=== PATIENT | male | born 1935 | race Caucasian/White ===

== ENCOUNTER 2016-12-19 04:48 | Emergency (ER) | payer OTHER ==
[~2016-12-19] VITALS: Ht 172.7 cm; Wt 98.0 kg
[~2016-12-19 04:48] MED LIST: B-COTAB18 PO; B-COTAB97 PO; CHOL4POW6 PO; CYAN100020 PO; DOCU100C31 PO; ELQ25 PO; FLNIN/ NAE; GLIM2TAB PO; METO25TA56 PO; NORT25CA PO; OMEG10007 PO; PRLSR20 PO; SIMV10TA5 PO
[2016-12-19 04:51] VITALS: TEMP 36.4; Ht 172.7 cm; Wt 98.0 kg
--- NOTE | 2016-12-19 05:11 | EMERGENCY ROOM VISIT NOTE ---
History Report prepared by Pato: Yolanda Waters Under the Supervision of: Dr. Syl Fuller D.O. First contact with patient: 04:55 Chief Complaint: OTHER COMPLAINT Stated Complaint: BLOOD,SLIME WHEN URINATING - NOT FEELING RIGHT History of Present Illness The patient is an 81 year old male who presents to the Emergency Room with complaints of bloody stool starting one day [employer]. The patient states that he has had an abscess in his intestines before causing blood in his stool which he had a surgery to remove the abscess. The patient denies any rectal pain or abdominal pain. He denies any urinary symptoms, fevers, chills, and vomiting. The patient states that he has some decreased appetite as well as just feeling overall not right. The patient states that he is a dialysis patient and is supposed to have dialysis later today. Patient states it has been several years since his last colonoscopy. Source of History: patient Onset: 1 day [employer] Position: other (stool ) Quality: other (bloody) Associated Symptoms: No abdominal pain, No chills, No fevers, No nausea, No urinary symptoms, No vomiting Note: Associated symptoms: Loss of appetite. Patient denies rectal pain. Review of Systems See HPI for pertinent positives & negatives. A total of 10 systems reviewed and were otherwise negative. 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 (11) Pulmonary embolus (12) Type 2 diabetes mellitus Surgical Problems: (1) Carpral tunnel surgery (2) H/O carotid endarterectomy (3) H/O removal of testicle (4) H/O superior vena cava filter placement (5) History of hydrocelectomy (6) History of total hip replacement (7) S/P aortic valve replacement (8) S/P cardiac cath (9) s/p perirectal abscess drainage with fistulectomy Family History Diabetes mellitus FH: heart disease FH: lung disease Hypertension Social History Smoking Status: Never Smoker Alcohol Use: none Marital Status: Housing Status: lives with family Current/Historical Medications Scheduled B-Complex Vitamins (Vitamin B Complex), 1 TAB PO HS B-Complex W/ C & Folic Acid ([place] Caps), 1 CAP PO DAILY Cholecalciferol (Vitamin D 1000 Unit), 1,000 INTER.UNIT PO DAILY Cholestyramine Light (Questran Powder Light), 4 GM PO DAILY Cyanocobalamin (Vitamin B12), 2 TAB PO DAILYBB Glimepiride (Amaryl), 1 MG PO DAILY Metoprolol Tartrate (Lopressor) (Lopressor), 25 MG PO TID [place]-3 Fatty Acids ([place] 3), 1,000 MG PO DAILY Omeprazole (Prilosec), 20 MG PO NOON Simvastatin (Zocor), 10 MG PO HS Scheduled PRN Docusate Sodium (Docusate Sodium), 1-2 CAP PO BID PRN for Constipation Fluticasone Propionate (Fluticasone Propionate), 1 SPRAY SANJANA DAILY PRN for Nasal Congestion Miscellaneous Medications Warfarin Sodium (Warfarin Sodium) Allergies Coded Allergies: Aspirin (Verified Allergy, Unknown, ., 07/04/16) Salicylates (Verified Allergy, Unknown, UNKNOWN, 07/04/16) FROM H&P 2011 Physical Exam Vital Signs Date Time Temp Pulse Resp B/P Pulse Ox O2 Delivery O2 Flow Rate FiO2 12/19/16 06:10 75 12/19/16 06:04 79 21 117/65 96 Room Air 12/19/16 05:06 80 12/19/16 04:51 36.4 81 20 129/74 96 Room Air Physical Exam HEENT: Head - normocephalic and atraumatic Pupils are equal, round, and reactive to light. Extraocular eye muscles are intact, and sclera are anicteric. Nose - moist nasal mucosa without discharge. Mouth - moist buccal mucosa. Oropharynx is nonerythematous and there is no tonsillar exudate or edema noted. Neck: Supple; no JVD, nuchal rigidity, cervical lymphadenopathy. Heart: Regular rate and rhythm. There is a normal S1 and S2 with no murmurs, clicks, or gallops appreciated. Lungs: Clear to auscultation bilaterally with no wheezes, rales, or rhonchi. Abdomen: Soft, completely nontender, nondistended, with good bowel sounds. There are no palpable pulsatile masses or hepatosplenomegaly. There is no guarding, rigidity, or rebound noted. Extremities: No evidence of cyanosis, or clubbing. 2+ pedal edema bilaterally. There are easily palpable peripheral pulses. Skin: warm and dry with good turgor and no rashes. Pale. Open sore posterior to the rectum which was bleeding. 3 superficial abrasions on the left buttock. Rectal: Very light brown stool that was heme negative. Medical Decision & Procedures Laboratory Results 12/19/16 05:16 Red Blood Count 2.90, Mean Corpuscular Volume 112.1, Mean Corpuscular Hemoglobin 37.2, Mean Corpuscular Hemoglobin Concent 33.2, Mean Platelet Volume 11.6, Neutrophils (%) (Auto) 70.0, Lymphocytes (%) (Auto) 17.7, Monocytes (%) ( Auto) 9.4, Eosinophils (%) (Auto) 2.0, Basophils (%) (Auto) 0.3, Neutrophils # ( Auto) 4.63, Lymphocytes # (Auto) 1.17, Monocytes # (Auto) 0.62, Eosinophils # ( Auto) 0.13, Basophils # (Auto) 0.02 12/19/16 05:16 Test 12/19/16 05:16 White Blood Count 6.61 K/uL (4.8-10.8) Red Blood Count 2.90 M/uL (4.7-6.1) Hemoglobin 10.8 g/dL (14.0-18.0) Hematocrit 32.5 % (42-52) Mean Corpuscular Volume 112.1 fL (80-100) Mean Corpuscular Hemoglobin 37.2 pg (25-34) Mean Corpuscular Hemoglobin Concent 33.2 g/dl (32-36) Platelet Count 109 K/uL (130-400) Mean Platelet Volume 11.6 fL (7.4-10.4) Neutrophils (%) (Auto) 70.0 % Lymphocytes (%) (Auto) 17.7 % Monocytes (%) (Auto) 9.4 % Eosinophils (%) (Auto) 2.0 % Basophils (%) (Auto) 0.3 % Neutrophils # (Auto) 4.63 K/uL (1.4-6.5) Lymphocytes # (Auto) 1.17 K/uL (1.2-3.4) Monocytes # (Auto) 0.62 K/uL (0.11-0.59) Eosinophils # (Auto) 0.13 K/uL (0-0.5) Basophils # (Auto) 0.02 K/uL (0-0.2) RDW Standard Deviation 61.0 fL (36.4-46.3) RDW Coefficient of Variation 15.1 % (11.5-14.5) Immature Granulocyte % (Auto) 0.6 % Immature Granulocyte # (Auto) 0.04 K/uL (0.00-0.02) Macrocytosis PRESENT Prothrombin Time 21.4 SECONDS (9.0-12.0) Prothromb Time International Ratio 1.9 (0.9-1.1) Activated Partial Thromboplast Time 37.4 SECONDS (21.0-31.0) Partial Thromboplastin Ratio 1.4 Anion Gap 10.0 mmol/L (3-11) Est Creatinine Clear Calc Drug Dose 14.0 ml/min Estimated GFR () 12.5 Estimated GFR (Non- 10.8 BUN/Creatinine Ratio 11.3 (10-20) Calcium Level 8.7 mg/dl (8.5-10.1) Total Bilirubin 0.6 mg/dl (0.2-1) Direct Bilirubin 0.2 mg/dl (0-0.2) Aspartate Amino Transf (AST/SGOT) 21 U/L (15-37) Alanine Aminotransferase (ALT/SGPT) 21 U/L (12-78) Alkaline Phosphatase 99 U/L (45-117) Total Creatine Kinase 119 U/L (39-308) Creatine Kinase MB 1.0 ng/ml (0.5-3.6) Creatine Kinase MB Ratio 0.8 (0-3.0) Troponin I 0.019 ng/ml (0-0.045) Total Protein 8.4 gm/dl (6.4-8.2) Albumin 3.6 gm/dl (3.4-5.0) Laboratory results per my review. ECG Indication: other (Blood in Stool) Rate (beats per minute): 79 Rhythm: normal sinus Findings: 1st degree AV block, no acute ischemic change, no ectopy ED Course 0455: Past medical records reviewed. The patient was evaluated in room B10. A complete history and physical exam was performed. A rectal exam was performed as described above. Laboratory studies were drawn as above. 0621: Upon reevaluation, the patient was hemodynamically stable. I discussed findings and results with him. He verbalized agreement of the treatment plan. The patient was discharged home. Medical Decision The patient is a 81 year old male who presents to the ED with bloody stool. Differential diagnosis includes but is not limited to lower GI bleed, anemia, and fatigue. Labs: Normal White Count Hemoglobin 10.8 Platelet count 109 BUN 54 Creatinine 4.7 Glucose 166 LFTs normal cardiac enzymes negative INR 1.9 Physical exam, the patient does not appear to have hematochezia. The blood noted on the toilet tissue was most likely secondary to the open sore near his rectum. The patient's explains that he does scratch himself at times. While the patient was here in the emergency department, he did move his bowels and the stool was light brown in color and had no obvious blood. Patient's hemoglobin was slightly decreased but he would not require a transfusion. I've asked the patient to follow-up with his PCP if the slime he stool persists or he has persistent decreased appetite. Impression Primary Impression: Buttock abrasion Additional Impression: Lack of appetite Scribe Attestation The scribe's documentation has been prepared under my direction and personally reviewed by me in its entirety. I confirm that the note above accurately reflects all work, treatment, procedures, and medical decision making performed by me. Departure Information Dispostion Home / Self-Care Referrals Zach Gooden M.D. (PCP) Forms HOME CARE DOCUMENTATION FORM, IMPORTANT VISIT INFORMATION, WORK / SCHOOL INSTRUCTIONS Patient Instructions My [facility] Additional Instructions Avoid scratching at your buttocks. You have a wound near your rectum. Keep that area clean and dry. If you have further episodes of stooling yourself, follow up with your PCP. Call dialysis this AM Problem Qualifiers
[2016-12-19 05:32] LABS: BASO % 0.3 %; BASO ABS # 0.02 K/uL (0-0.2); HEMATOCRIT 32.5 % (42-52); IG% 0.6 %; LYMPH % 17.7 %; LYMPH ABS # 1.17 K/uL (1.2-3.4); MEAN CELL VOLUME 112.1 fL (80-100); MEAN CORPUSCULAR HEMOGLOBIN 37.2 pg (25-34); MEAN CORPUSCULAR HGB CONC 33.2 g/dl (32-36); MEAN PLATELET VOLUME 11.6 fL (7.4-10.4); MONO % 9.4 %; PLATELET COUNT 109 K/uL (130-400); WHITE BLOOD COUNT 6.61 K/uL (4.8-10.8)
[2016-12-19 05:43] LABS: INR 1.9 (0.9-1.1); PARTIAL THROMBOPLASTIN RATIO 1.4; PROTHROMBIN TIME (PATIENT) 21.4 SECONDS (9.0-12.0)
[2016-12-19 05:49] LABS: COMPLETE YES
[2016-12-19 06:02] LABS: BUN/CREATININE RATIO 11.3 (10-20); CALCIUM 8.7 mg/dl (8.5-10.1); CKMB/CK RATIO 0.8 (0-3.0); CREATININE 4.7 mg/dl (0.60-1.40); POTASSIUM 3.9 mmol/L (3.5-5.1)
[2016-12-19] MEDS ORDERED: GLIM1TAB PO (06:29)
[2016-12-19 06:31] VITALS: BP 117/65; PULSE 75; O2SAT 96
[2016-12-19] MEDS ORDERED: DOCU100C31 PO (06:31)
[2016-12-19] MEDS ORDERED: WARF-246 (06:33)
[2016-12-19] MEDS ORDERED: OMEG100046 PO (06:35)
[2016-12-19] MEDS ORDERED: CYAN100020 PO (06:36)
[2016-12-19] MEDS ORDERED: CHOL100027 PO (06:37)
[2016-12-19] MEDS ORDERED: B-COCAP21 PO (06:37)
[2016-12-19] MEDS ORDERED: CHOL4POW2 PO (06:37)
[2016-12-19] MEDS ORDERED: WARF5TAB90 PO ×2 (06:39)
== END 2016-12-19 06:35 | disposition home or self-care (01) ==
LOC: C.EDB 04:51
DX: S30.810A Abrasion of lower back and pelvis, initial encounter (principal); R63.0 Anorexia; X58.XXXA Exposure to other specified factors, initial encounter; D64.9 Anemia, unspecified; I08.0 Rheumatic disorders of both mitral and aortic valves; I82.409 Acute embolism and thrombosis of unspecified deep veins of unspecified lower extremity; E78.5 Hyperlipidemia, unspecified; N18.6 End stage renal disease; Z99.2 Dependence on renal dialysis; I10 Essential (primary) hypertension; E11.9 Type 2 diabetes mellitus without complications; Z83.3 Family history of diabetes mellitus; Z82.49 Family history of ischemic heart disease and other diseases of the circulatory system

== ENCOUNTER 2017-01-30 00:46 | Emergency (ER) | payer OTHER ==
[~2017-01-30] VITALS: Ht 170.2 cm; Wt 99.0 kg
[~2017-01-30 00:46] MED LIST changes: +B-COCAP21 PO; -B-COTAB97 PO; +CHOL100027 PO; +CHOL4POW2 PO; -CHOL4POW6 PO; -ELQ25 PO; +GLIM1TAB PO; -GLIM2TAB PO; -NORT25CA PO; +OMEG100046 PO; -OMEG10007 PO; +WARF5TAB90 PO
[2017-01-30 00:51] VITALS: TEMP 36.6; Ht 170.2 cm; Wt 99.0 kg
[2017-01-30] MEDS ORDERED: ONDANSETRON INJ 2 MG/ML 2 ML VIAL IV STA (01:03)
[2017-01-30] MEDS ORDERED: HYDROmorphone INJ 0.5 MG/0.5 ML SYR IV STA (01:03)
--- NOTE | 2017-01-30 01:05 | EMERGENCY ROOM VISIT NOTE ---
History Report prepared by Pato: Yovanny Tovar Under the Supervision of: Dr. Kian Jordan M.D. First contact with patient: 00:54 Chief Complaint: GROIN PAIN Stated Complaint: GROIN/HIP PAIN History of Present Illness The patient is an 81 year old male who presents to the Emergency Room with complaints of worsening left groin pain that began 12 hours prior to arrival. He has vomited secondary to his pain, and has had multiple bowel movements today. The patient states that he has a history of blood clots in the past and notes that this episode feels similar. He is currently on Coumadin, and has not had his levels checked in several weeks. He denies any history of hernia. Source of History: patient, family Onset: 12 hours [employer] Position: other (Groin (Left)) Timing: worsening Associated Symptoms: + vomiting Review of Systems See HPI for pertinent positives & negatives. A total of 10 systems reviewed and were otherwise negative. 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 (11) Pulmonary embolus (12) Type 2 diabetes mellitus Surgical Problems: (1) Carpral tunnel surgery (2) H/O carotid endarterectomy (3) H/O removal of testicle (4) H/O superior vena cava filter placement (5) History of hydrocelectomy (6) History of total hip replacement (7) S/P aortic valve replacement (8) S/P cardiac cath (9) s/p perirectal abscess drainage with fistulectomy Family History Diabetes mellitus FH: heart disease FH: lung disease Hypertension Social History Smoking Status: Never Smoker Alcohol Use: none Marital Status: Housing Status: lives with family Current/Historical Medications Scheduled B-Complex Vitamins (Vitamin B Complex), 1 TAB PO HS B-Complex W/ C & Folic Acid (Handy Caps), 1 CAP PO DAILY Cephalexin Monohydrate (Keflex), 500 MG PO TID Cholecalciferol (Vitamin D 1000 Unit), 1,000 INTER.UNIT PO DAILY Cholestyramine Light (Questran Powder Light), 4 GM PO DAILY Cyanocobalamin (Vitamin B12), 2 TAB PO DAILYBB Glimepiride (Amaryl), 1 MG PO DAILY Metoprolol Tartrate (Lopressor) (Lopressor), 25 MG PO TID [place]-3 Fatty Acids ([place] 3), 1,000 MG PO DAILY Omeprazole (Prilosec), 20 MG PO NOON Simvastatin (Zocor), 10 MG PO HS Warfarin Sodium (Coumadin), 2.5 MG PO 2XWK Warfarin Sodium (Coumadin), 5 MG PO 5XWK Scheduled PRN Docusate Sodium (Docusate Sodium), 1-2 CAP PO BID PRN for Constipation Fluticasone Propionate (Fluticasone Propionate), 1 SPRAY SANJANA DAILY PRN for Nasal Congestion Oxycodone Immediate Rel Tab (Roxicodone Ir), 0.5-1 TAB PO Q6H PRN for Severe Pain Allergies Coded Allergies: Aspirin (Verified Allergy, Unknown, ., 01/30/17) Salicylates (Verified Allergy, Unknown, UNKNOWN, 01/30/17) FROM H&P 2011 Physical Exam Vital Signs Date Time Temp Pulse Resp B/P Pulse Ox O2 Delivery O2 Flow Rate FiO2 01/30/17 02:56 91 18 142/74 95 01/30/17 00:51 36.6 83 16 133/63 96 Room Air Physical Exam GENERAL: Patient is well appearing and in mild distress. HEENT: No acute trauma, normocephalic atraumatic, mucous membranes moist, no nasal congestion, no scleral icterus. NECK: No stridor, no adenopathy, no meningismus, trachea is midline. LUNGS: No dyspnea. Clear to auscultation and equal bilaterally. No wheeze, no rhonchi. HEART: Regular rate and rhythm. No murmurs, rubs, gallops appreciated. ABDOMEN: Soft, nontender, bowel sounds positive, no masses appreciated, no peritonitis. BACK: No midline tenderness, no CVA tenderness EXTREMITIES: There is a fistula in the left upper arm with good thrill. Normal motion all extremities, no cyanosis, no edema. There is a moderate nodule that is mobile in the left inguinal canal, with moderate tenderness to palpation. No erythema, it is non-reducible. NEUROLOGIC: Alert and oriented, no acute motor or sensory deficits, no focal weakness, cranial nerves grossly intact. SKIN: No rash, no jaundice, no diaphoresis. Medical Decision & Procedures ER Provider Diagnostic Interpretation: Radiology results and stated below per my review and radiologist interpretation: US SOFT TISSUE: Suspect nonreducible, fat containing left inguinal hernia. Left inguinal node, 2.6 x 1 x 1.2 cm. No pseudoaneurysm Radiologist: Caitie Gan M.D. Laboratory Results 01/30/17 01:34 01/30/17 01:34 Test 01/30/17 01:34 Red Blood Count 2.75 M/uL (4.7-6.1) Mean Corpuscular Volume 111.6 fL (80-100) Mean Corpuscular Hemoglobin 37.5 pg (25-34) Mean Corpuscular Hemoglobin Concent 33.6 g/dl (32-36) RDW Standard Deviation 58.8 fL (36.4-46.3) RDW Coefficient of Variation 14.6 % (11.5-14.5) Mean Platelet Volume 11.3 fL (7.4-10.4) Prothrombin Time 23.6 SECONDS (9.0-12.0) Prothromb Time International Ratio 2.1 (0.9-1.1) Anion Gap 13.0 mmol/L (3-11) Est Creatinine Clear Calc Drug Dose 9.4 ml/min Estimated GFR () 7.9 Estimated GFR (Non- 6.8 BUN/Creatinine Ratio 9.6 (10-20) Calcium Level 8.8 mg/dl (8.5-10.1) Chemistry Specimen Hemolysis Laboratory results as reviewed by me. Medications Administered Medications (Trade) Dose Ordered Sig/Nawaf Route Start Time Stop Time Status Last Admin Dose Admin Hydromorphone HCl (Dilaudid Inj) 0.5 mg NOW STAT IV 01/30/17 01:03 01/30/17 01:06 DC 01/30/17 02:10 0.5 MG Ondansetron HCl (Zofran Inj) 4 mg NOW STAT IV 01/30/17 01:03 01/30/17 01:06 DC 01/30/17 02:10 4 MG Cephalexin Monohydrate (Keflex Cap) 500 mg NOW ONCE PO 01/30/17 02:45 01/30/17 02:46 DC 01/30/17 02:56 500 MG Oxycodone HCl (Roxicodone Immediate Rel 5MG Home Pack) 1 homepack UD ONCE PO 01/30/17 02:45 01/30/17 02:46 DC 01/30/17 02:56 1 HOMEPACK ED Course 0058: The patient was evaluated in room B6. A complete history and physical exam was performed. 0103: Ordered Zofran 4 mg IV, Dilaudid 0.5 mg IV. 0245: Ordered Oxycodone HCl 1 homepack PO, Cephalexin 500 mg PO. 0249: I reassessed the patient at this time and discussed visit findings at this time. He notes that he is a dialysis patient and has an appointment tomorrow. The patient will be discharged home. Medical Decision 81 yr old male arrives with left groin pain. Apparently vomited prior to arrival. Abdomen is completely benign. He notes normal bowel movements. Left inguinal nodule consistent with swollen node. US confirms large inguinal node. They note questionable fat hernia non-reducible on read as well. He is not septic, there is no overlying erythema. No indication for emergent CT scan. Cr bumped bumped he has dialysis in a few hours. Would suspect inflammatory nodule, and given his chronic scratching of skin issue would have to assume this is bacterial. Not septic. INR therapeutic. No evidence of DVT. Will treat with Keflex and rest. Oxy IR for discomfort and discussed risks/ restrictions of this as well. Stable at discharge. Impression Primary Impression: Inguinal lymphadenitis Additional Impression: Inguinal Fat Hernia, Left Scribe Attestation The scribe's documentation has been prepared under my direction and personally reviewed by me in its entirety. I confirm that the note above accurately reflects all work, treatment, procedures, and medical decision making performed by me. Departure Information Dispostion Home / Self-Care Prescriptions Oxycodone Immediate Rel Tab (ROXICODONE IR) 5 Mg Tab 0.5-1 TAB PO Q6H Y for Severe Pain, #8 TAB Prov: Kian Jordan M.D. 01/30/17 Cephalexin Monohydrate (Keflex) 500 Mg Cap 500 MG PO TID for 5 Days, #15 CAP Prov: Kian Jordan M.D. 01/30/17 Referrals Zach Gooden M.D. (PCP) Patient Instructions ED Hernia Inguinal, My [facility] Additional Instructions You have a swollen Lymph node in the left groin. This can be due to a variety of reasons, though often is due to infection or inflammation. Return if worsening pain, swelling, vomiting, inability to have bowel movement, fevers or other concerns. There is a fat containing hernia left inguinal region as well. This may be inflamed as well and cause some discomfort. Return if worsening. Please discuss with your primary provider as well. You have received a narcotic pain medication prescription. These medications may cause drowsiness and should not be used with other sedative medications. Do not drive, drink alcohol, perform dangerous activities, nor make important decisions after taking these medications. [employer] use or inappropriate use may lead to addiction. These medications cause constipation. Problem Qualifiers
[2017-01-30 01:47] LABS: HEMATOCRIT 30.7 % (42-52); MEAN CELL VOLUME 111.6 fL (80-100); MEAN CORPUSCULAR HEMOGLOBIN 37.5 pg (25-34); MEAN CORPUSCULAR HGB CONC 33.6 g/dl (32-36); MEAN PLATELET VOLUME 11.3 fL (7.4-10.4); PLATELET COUNT 127 K/uL (130-400); RED BLOOD COUNT 2.75 M/uL (4.7-6.1); WHITE BLOOD COUNT 9.89 K/uL (4.8-10.8)
[2017-01-30 02:03] LABS: INR 2.1 (0.9-1.1); PROTHROMBIN TIME (PATIENT) 23.6 SECONDS (9.0-12.0)
[2017-01-30 02:25] LABS: BUN/CREATININE RATIO 9.6 (10-20); CALCIUM 8.8 mg/dl (8.5-10.1); CREATININE 6.9 mg/dl (0.60-1.40); POTASSIUM 4.8 mmol/L (3.5-5.1)
[2017-01-30] MEDS ORDERED: OXYC1TAB3 PO (02:41)
[2017-01-30] MEDS ORDERED: CEPH500C PO (02:41)
[2017-01-30] MEDS ORDERED: CEPHALEXIN MONOHYDRATE 250 MG CAP PO ONE (02:45)
[2017-01-30] MEDS ORDERED: OXYCODONE IR HOME PACK PO ONE (02:45)
[2017-01-30 02:56] VITALS: BP 142/74; PULSE 91; O2SAT 95
--- NOTE | 2017-01-30 06:46 | DIAGNOSTIC IMAGING REPORT ---
ABDOMINAL ULTRASOUND, soft tissue left lower QUADRANT HISTORY: Pain. Nodule. left groin pain/mass. COMPARISON: None. FINDINGS: No evidence for a bowel containing left inguinal hernia. No major mass or collection. No evidence for pseudoaneurysm. Possible small fat-containing left inguinal hernia IMPRESSION: Possible small fat-containing left inguinal hernia. No evidence for mass or collection. Electronically signed by: Nathan Disla M.D. 01/30/2017 6:45 AM Dictated Date/Time: 01/30/2017 6:44 AM
== END 2017-01-30 02:58 | disposition home or self-care (01) ==
LOC: C.EDB 00:47
DX: I88.9 Nonspecific lymphadenitis, unspecified (principal); K40.90 Unilateral inguinal hernia, without obstruction or gangrene, not specified as recurrent; I12.0 Hypertensive chronic kidney disease with stage 5 chronic kidney disease or end stage renal disease; E11.22 Type 2 diabetes mellitus with diabetic chronic kidney disease; N18.6 End stage renal disease; E78.5 Hyperlipidemia, unspecified; Z86.718 Personal history of other venous thrombosis and embolism; Z86.711 Personal history of pulmonary embolism; Z99.2 Dependence on renal dialysis; Z90.79 Acquired absence of other genital organ(s); Z96.649 Presence of unspecified artificial hip joint; Z95.2 Presence of prosthetic heart valve; Z98.890 Other specified postprocedural states; Z79.01 Long term (current) use of anticoagulants; Z79.899 Other long term (current) drug therapy; Z83.3 Family history of diabetes mellitus; Z82.49 Family history of ischemic heart disease and other diseases of the circulatory system

== ENCOUNTER 2019-03-18 18:54 | Inpatient (IN) ==
--- OUTSIDE RECORDS SUMMARY | 2019-03-18 18:58 | External Medical Summary | Continuity of Care Document ---
:1935 Author Name Michelle Pleitez, Provider Address Unavailable Unavailable , Care Team Providers Name Role Phone Alexandr Pleitez, Osito Marie Unavailable [email or web address], Yesenia Unavailable Unavailable Problems Active medical history not documented Allergies and Adverse Reactions Allergy history not documented Medications Medications not documented Procedures Procedures not documented Immunizations Immunizations not documented Plan of Treatment Planned Observations Planned Goals not documented Results No Known Results Results not documented
[2019-03-18] MEDS ORDERED: GI COCKTAIL ED USE PO ONE (19:14)
[2019-03-18] MEDS ORDERED: FAMOTIDINE 20 MG TAB PO ONE (19:14)
[2019-03-18 19:34] LABS: Basophils # (auto) 0.03 K/uL (0-0.2); Basophils % (auto) 0.5 %; Eosinophils # (auto) 0.24 K/uL (0-0.5); Eosinophils % (auto) 4.1 %; Hematocrit (blood only) 35.1 % (42-52); Hemoglobin 11.5 g/dL (14.0-18.0); Immature Granulocytes # (auto) 0.03 K/uL (0.00-0.02); Immature Granulocytes % (auto) 0.5 %; Lymphocytes # (auto) 0.97 K/uL (1.2-3.4); Lymphocytes % (auto) 16.6 %; Mean Corpuscular Hgb Conc 32.8 g/dL (32-36); Mean Corpuscular Volume 114.3 fL (80-100); Mean Platelet Volume 11.8 fL (7.4-10.4); Monocytes # (auto) 0.71 K/uL (0.11-0.59); Monocytes % (auto) 12.2 %; Neutrophils # (auto) 3.85 K/uL (1.4-6.5); Neutrophils % (auto) 66.1 %; Platelet Count 106 K/uL (130-400); RDW Coefficient of Variation 15.6 % (11.5-14.5); RDW Standard Deviation 64.2 fL (36.4-46.3); Red Blood Count 3.07 M/uL (4.7-6.1); White Blood Count 5.83 K/uL (4.8-10.8)
[2019-03-18 19:43] LABS: INR 1.9 (0.9-1.1); Prothrombin Time 18.3 Seconds (9.0-12.0)
--- NOTE | 2019-03-18 19:54 | Emergency Department Note ---
Entered by Sara Collins acting as a scribe for History of Present Illness General Chief complaint: Chest Pain Stated complaint: CHEST PAIN Time Seen by Provider: 03/18/19 19:05 Source: patient History of Present Illness Provider complaint: Chest pain Onset (ago): day(s) 1 Location: chest Pain Consistency: + other (episode) Maximum Pain Intensity: 6 Exacerbated By: + eating Associated symptoms: + other (diarrhea); no nausea/vomiting and no shortness of breath The patient is an 83 year old male who presents to the ED with complaints of an episode of chest pain that started 1 day ago. The patient states that he had an episode of chest pain last night after dinner and again today at 1630. The patient notes that the chest pain occurs about 1 hour after eating. The patient states that he has also experienced diarrhea starting a few days ago. The patient denies nausea, vomiting, and shortness of breath. Home Medications Home Medications Medication Instructions Recorded Confirmed Type acetaminophen [Tylenol Extra 500 mg PO Q6H PRN 06/14/18 03/18/19 History Strength] carvedilol [Coreg] 12.5 mg PO BID 06/14/18 03/18/19 History cholecalciferol (vitamin D3) 1,000 unit PO DAILY 06/14/18 03/18/19 History [Vitamin D3] omega 9-iil-xkm-fish oil [[place]-3] 1 tab PO DAILY 06/14/18 03/18/19 History omeprazole 20 mg PO DAILY 06/14/18 03/18/19 History sevelamer carbonate [Renvela] 1,600 mg PO DAILYBD 06/14/18 03/18/19 History warfarin [Coumadin] 5 mg PO SUTUTHSA 06/14/18 03/18/19 History B complex-vitamin C-folic acid 1 tab PO DAILY 03/18/19 03/18/19 History [Sherley-Neeraj] docusate sodium 100 mg PO BID PRN 03/18/19 03/18/19 History fluticasone propionate [Flonase 1 spray INTRANASAL DAILY PRN 03/18/19 03/18/19 History Allergy Relief] lidocaine-prilocaine 1 applic TOPICAL UD 03/18/19 03/18/19 History sevelamer carbonate 800 mg PO DAILYBB 03/18/19 03/18/19 History sevelamer carbonate [Renvela] 800 mg PO DAILYBL 03/18/19 03/18/19 History vitamin B complex 1 tab PO DAILY 03/18/19 03/18/19 History warfarin [Coumadin] 2.5 mg PO MOWEFR 03/18/19 03/18/19 History Allergies Allergy/AdvReac Type Severity Reaction Status Date / Time aspirin Allergy Unknown . 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) "01/27/09, OD " Atrial flutter (Chronic) Anemia (Chronic) Surgical History S/P ablation of atrial flutter (Chronic) History of total hip replacement (Chronic) History of hydrocelectomy (Chronic) H/O superior vena cava filter placement (Chronic) H/O removal of testicle (Chronic) H/O carotid endarterectomy (Chronic) "2008" S/P aortic valve replacement (Chronic) "bio prosthetic" S/P cardiac cath (Chronic) "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 and A total of 10 systems reviewed and were otherwise negative Physical Exam Vital Signs Vital Signs - 24 hr 03/18/19 18:58 03/18/19 19:55 03/18/19 21:00 Temperature 36.5 C Temperature Source Oral Sepsis Recent Fever Within 48 Hours No Sepsis New/Unexplained Change in Mental Status No Sepsis Action Taken by Nursing No Action Required Pulse Rate 83 Pulse Rate [Left Apical] 75 72 Pulse Rhythm [Left Apical] Regular Regular Pulse Strength [Left Apical] Normal Normal Respiratory Rate 18 16 17 Respiratory Effort / Characteristics Non-Labored Spontaneous Non-Labored Spontaneous Respiratory Depth Normal Normal Respiratory Pattern Regular Regular Blood Pressure 126/65 Blood Pressure [Right Arm] 115/58 L 129/71 Blood Pressure Mean 85 Blood Pressure Mean [Right Arm] 77 90 Blood Pressure Position [Right Arm] Lying Pulse Oximetry 96 96 94 Oxygen Delivery Method Room Air Room Air Room Air GENERAL: Awake, alert, well-appearing, in no distress. BMI is 34.2 HENT: Normocephalic, atraumatic. Oropharynx with dry mucous membranes and otherwise unremarkable. EYES: Normal conjunctiva. Sclera non-icteric. NECK: Supple. No nuchal rigidity. FROM. No JVD. RESPIRATORY: CTAB CARDIAC: Regular rate, normal rhythm. 2/6 systolic murmur. Extremities warm and well perfused. Pulses equal. ABDOMEN: Soft, non-distended. Mild epigastric tenderness. No rebound or guarding. No masses. RECTAL: Deferred. MUSCULOSKELETAL: Chest examination reveals no tenderness. The back is symmetrical on inspection without obvious abnormality. There is no CVA tenderness to palpation. No joint edema. LOWER EXTREMITIES: Calves are equal size bilaterally and non-tender. No edema. No discoloration. NEURO: Normal sensorium. No sensory or motor deficits noted. SKIN: No rash or jaundice noted. Course 1911: Past medical records reviewed. The patient was evaluated in room B4. A complete history and physical exam was performed. 2044: Case d/w Aris Reyes, who will evaluate the patient for admission. Administered Medications Discontinued Medications Al Hydrox/Mg Hydrox/Simethicone () 1 dose PO ONE ONE Stop: 03/18/19 19:15 Last Admin: 03/18/19 19:21 Dose: 1 dose Documented by: [id number] Famotidine (Pepcid) 20 mg PO NOW ONE Stop: 03/18/19 19:15 Last Admin: 03/18/19 19:21 Dose: 20 mg Documented by: [id number] Medical Decision Making Differential Diagnosis Differential diagnosis: Etiologies such as shingles, musculoskeletal pain, pericarditis, myocarditis, cardiac ischemia, pericardial tamponade, pneumonia, pneumothorax, pleural effusion, hemothorax, pleurisy, aortic pathology, pulmonary embolism, intra- abdominal process, as well as others were considered. Medical Records Attestation: I reviewed the patient's medical records. Home Medications Current Medication List: was personally reviewed by me Laboratory Data Result diagrams: 03/18/19 19:19 03/18/19 19:19 Lab Results 03/18/19 03/18/19 03/18/19 Range/Units 19: 19:19 19:19 WBC 5.83 (4.8-10.8) K/uL RBC 3.07 L (4.7-6.1) M/uL Hgb 11.5 L (14.0-18.0) g/dL Hct 35.1 L (42-52) % MCV 114.3 H (80-100) fL MCH 37.5 H (25-34) pg MCHC 32.8 (32-36) g/dL RDW Std Deviation 64.2 H (36.4-46.3) fL RDW Coeff of Elvia 15.6 H (11.5-14.5) % Plt Count 106 L (130-400) K/uL MPV 11.8 H (7.4-10.4) fL Immature Gran % (Auto) 0.5 % Neut % (Auto) 66.1 % Lymph % (Auto) 16.6 % Bee % (Auto) 12.2 % Eos % (Auto) 4.1 % Baso % (Auto) 0.5 % Immature Gran # (Auto) 0.03 H (0.00-0.02) K/uL Neut # (Auto) 3.85 (1.4-6.5) K/uL Lymph # (Auto) 0.97 L (1.2-3.4) K/uL Bee # (Auto) 0.71 H (0.11-0.59) K/uL Eos # (Auto) 0.24 (0-0.5) K/uL Baso # (Auto) 0.03 (0-0.2) K/uL Macrocytosis Present PT 18.3 H (9.0-12.0) Seconds INR 1.9 H (0.9-1.1) Sodium 138 (136-145) mmol/L Potassium 3.8 (3.5-5.1) mmol/L Chloride 97 L (98-107) mmol/L Carbon Dioxide 32 (21-32) mmol/L Anion Gap 9.0 (3-11) BUN 30 H (7-18) mg/dl Creatinine 5.38 H* (0.6-1.4) mg/dl Est Cr Clr Drug Dosing 11.3 ml/min Est GFR ( Amer) 10.5 Est GFR (Non-Af Amer) 9.1 BUN/Creatinine Ratio 5.5 L (10-20) Glucose 230 H (70-99) mg/dl Calcium 8.5 (8.5-10.1) mg/dl Phosphorus 3.2 (2.5-4.9) mg/dl Magnesium 2.0 (1.8-2.4) mg/dl Total Bilirubin 0.4 (0.2-1) mg/dl Direct Bilirubin 0.1 (0-0.2) mg/dl AST 21 (15-37) U/L ALT 24 (12-78) U/L Alkaline Phosphatase 184 H (45-117) U/L Troponin I 0.371 H* (0-0.045) ng/ml Total Protein 8.4 H (6.4-8.2) gm/dl Albumin 3.3 L (3.4-5.0) gm/dl Globulin 5.1 H (2.5-4.0) gm/dl Albumin/Globulin Ratio 0.7 L (0.9-2) Lipase 420 H (73-393) U/L Imaging Data Attestation: I personally reviewed and interpreted this imaging study as follows: Radiologist's Impression: XR chest 1V portable HISTORY: 83 years-old Male Chest Pain acute atypical chest pain COMPARISON: Chest radiograph 07/04/2016 TECHNIQUE: Portable AP view of the chest FINDINGS: Cardiac silhouette is enlarged, unchanged. Prior median sternotomy. Calcification the thoracic aortic arch. Chronic appearing interstitial coarsening without pneumothorax, large pleural effusion or overt pulmonary edema. Mild blunting of the costophrenic angles. Degenerative changes of the shoulders and spine. IMPRESSION: 1. Cardiomegaly without overt pulmonary edema. 2. Interstitial coarsening, likely chronic. 3. Mild blunting of the costophrenic angles may be secondary to atelectasis or trace pleural effusions. The above report was generated using voice recognition software. It may contain grammatical, syntax or spelling errors. Electronically signed by: Mark Anthony Dickson M.D. 03/18/2019 8:09 PM ECG Data Attestation: I personally reviewed and interpreted this ECG as follows: Indication: chest pain Rate (beats per minute): 82 Rhythm: sinus with SA Findings: + ST depression (Lateral) and + left axis deviation Comparison ECG Date: from (06/14/2018) Additional Comments: ST depressed laterally. Blood Pressure Blood Pressure Findings: Normal blood pressure Blood Pressure Disposition: did not require urgent referral MDM Narrative The patient is a pleasant 83-year-old gentleman with a past medical history of hypertension, hyperlipidemia, end-stage renal disease on HD Sunday, atrial flutter, DVT/PE status post IVC filter who presents to emergency department with episodes of chest pain which occurred last night and again today per hpi. Of note, the patient reports that both episodes occurred approximately 1 hour after eating. On exam the patient has mild reproducible epigastric tenderness without guarding or rebound. EKG demonstrates sinus rhythm with left axis deviation however with slightly depressed ST segments in the lateral leads which is new compared to previous EKG. Chest x-ray with chronic interstitial coarsening without overt pulmonary edema or large pleural effusions. WBC within normal limits. H/H 11.5/35.1 similar to prior value. Platelets 106 also similar to prior values. Creatinine is 5.3 in the setting of the patient's end-stage renal disease. Troponin is 0.37 without any recent values for comparison. Patient feeling improved after Pepcid and GI cocktail. Certainly the correlation of the patient's symptoms occurring after eating suggest likely GI etiology. Initially the patient denies any progressive symptoms of exertional chest pain or dyspnea to suggest anginal pattern. However given the patient's history of coronary disease, albeit nonobstructive, given the patient's EKG findings in the setting of his troponin elevation reasonable to admit for further cardiac evaluation including trending troponin and likely formal echo and cardiology consultation. Heart score 7, high risk. Case was discussed with Aris Reyes, who will evaluate the patient for admission. Impression & Plan Intermittent left-sided chest pain Discharge Plan Visit Data *Final* Discharge Date/Time: 03/18/19 22:18 Chief Complaint: Chest Pain Stated Complaint: CHEST PAIN ED Provider: Loi Rodriguez Discharge Problem: Intermittent left-sided chest pain Patient Disposition: Admitted As Inpatient Discharge Instructions Interventions: ED Discharge Assessment Last Done: 03/18/19 22:18 The scribe's documentation has been prepared under my direction and personally reviewed by me in its entirety. I confirm that the note above accurately reflects all work, treatment, procedures, and medical decision making performed by me.
[2019-03-18 20:01] LABS: Macrocytosis Present
[2019-03-18 20:07] LABS: Albumin Globulin Ratio 0.7 (0.9-2); Albumin Level 3.3 gm/dl (3.4-5.0); BUN Creatinine Ratio 5.5 (10-20); Bilirubin Direct 0.1 mg/dl (0-0.2); Bilirubin,Total 0.4 mg/dl (0.2-1); Calcium 8.5 mg/dl (8.5-10.1); Creatinine Clr Calc Pharmacy 11.3 ml/min; Est GFR (African American) 10.5; Est GFR (Non-African American) 9.1; Globulin 5.1 gm/dl (2.5-4.0); Phosphorus 3.2 mg/dl (2.5-4.9); Potassium 3.8 mmol/L (3.5-5.1); Total Protein 8.4 gm/dl (6.4-8.2); Troponin I 0.371 ng/ml (0-0.045)
--- NOTE | 2019-03-18 20:11 | XRay Report ---
XR chest 1V portable HISTORY: 83 years-old Male Chest Pain acute atypical chest pain COMPARISON: Chest radiograph 07/04/2016 TECHNIQUE: Portable AP view of the chest FINDINGS: Cardiac silhouette is enlarged, unchanged. Prior median sternotomy. Calcification the thoracic aortic arch. Chronic appearing interstitial coarsening without pneumothorax, large pleural effusion or over t pulmonary edema. Mild blunting of the costophrenic angles. Degenerative changes of the shoulders an d spine. IMPRESSION: 1. Cardiomegaly without overt pulmonary edema. 2. Interstitial coarsening, likely chronic. 3. Mild blunting of the costophrenic angles may be secondary to atelectasis or trace pleural effusion s. The above report was generated using voice recognition software. It may contain grammatical, syntax o r spelling errors. Electronically signed by: Mark Anthony Dickson M.D. 03/18/2019 8:09 PM
--- NOTE | 2019-03-18 21:46 | History & Physical Report ---
Date of Service March 18, 2019 Assessment & Plan (1) Chest pain: (2) Elevated troponin: -Admit to telemetry -Patient presenting from home with 2 episodes of chest pain yesterday and today; both occurring shortly after eating -In the ED, EKG shows new ST depressions in the lateral leads and T wave inversions in the anterior leads (these have been present on prior EKGs), troponin is 0.371 -Received GI cocktail and p.o. Pepcid in the ED with resolution of pain; will increase PPI to twice daily -Pain seems to be GI in nature however given troponin elevation and EKG changes, will admit for observation overnight -ESRD possibly contributing to troponin elevation as well -Anticoagulated on Coumadin for history of PE, INR 1.9 -Aspirin contraindicated at this time due to underlying allergy and mild thrombocytopenia (platelets 106K). If further troponin elevation, consider initiation of Plavix -Continue beta-laquita -Continue to cycle cardiac enzymes, resting echo -Cardiac cath 2011-nonobstructive CAD -Cardiology consult, input appreciated (3) S/P ablation of atrial flutter: -Currently in NSR -Rate controlled on beta-laquita, will continue -Anticoagulated on Coumadin, INR 1.9 (4) Pulmonary embolus: -Anticoagulated on Coumadin, INR 1.9 (5) Type 2 diabetes mellitus: -Hgb A1c 6.8 01/2019 -Typically diet controlled at home -Glucose noted to be 230 on today's labs, will place on NovoLog per protocol while hospitalized -Would allow for more labile control secondary to patient's advanced age (6) ESRD (end stage renal disease) on dialysis: -Nephrology consulted for dialysis orders -Continue routine renal medications (7) S/P aortic valve replacement: -Bioprosthetic -No acute issues (8) DVT prophylaxis: -Anticoagulant Coumadin, INR 1.9 History of Present Illness Chief Complaint: Chest pain Primary Care Provider: Zach Gooden MD 83-year-old male who presents the ED with chest pain. Patient has had 2 episodes of chest pain in the past 2 days. Yesterday, about 1 hour after eating dinner, patient developed a left lower chest/left upper abdominal pain. Pain lasted for about 1 hour and resolved on its own. Patient had his routine dialysis session today and reported his symptoms to the nurse who instructed patient to return to the ED if he had any further episodes. Earlier today, patient reports he had a slice of blueberry pie and shortly after he developed very similar pain as he experienced last night. Patient came to the ED for evaluation. Patient was given GI cocktail and p.o. Pepcid with resolution of pain. No associated shortness of breath, nausea, diaphoresis, lightheadedness, syncopal event. Patient has chronic exertional shortness of breath and lower extremity edema which is unchanged from baseline. Reports he has been overall doing well recently. He denies vomiting and diarrhea. No other recent illness, fevers, chills. No urinary symptoms. In the ED, EKG shows mild ST depressions in the lateral leads. Troponin is mildly elevated at 0.371. Other labs are unremarkable/at baseline. Allergies Allergy/AdvReac Type Severity Reaction Status Date / Time aspirin Allergy Unknown . Verified 03/18/19 20:02 salicylates Allergy Unknown UNKNOWN Verified 03/18/19 20:02 Home Medications Home Medications Medication Instructions Recorded Confirmed Type acetaminophen [Tylenol Extra 500 mg PO Q6H PRN 06/14/18 03/18/19 History Strength] carvedilol [Coreg] 12.5 mg PO BID 06/14/18 03/18/19 History cholecalciferol (vitamin D3) 1,000 unit PO DAILY 06/14/18 03/18/19 History [Vitamin D3] omega 3-iwo-vpb-fish oil [[place]-3] 1 tab PO DAILY 06/14/18 03/18/19 History omeprazole 20 mg PO DAILY 06/14/18 03/18/19 History sevelamer carbonate [Renvela] 1,600 mg PO DAILYBD 06/14/18 03/18/19 History warfarin [Coumadin] 5 mg PO SUTUTHSA 06/14/18 03/18/19 History B complex-vitamin C-folic acid 1 tab PO DAILY 03/18/19 03/18/19 History [Sherley-Neeraj] docusate sodium 100 mg PO BID PRN 03/18/19 03/18/19 History fluticasone propionate [Flonase 1 spray INTRANASAL DAILY PRN 03/18/19 03/18/19 History Allergy Relief] lidocaine-prilocaine 1 applic TOPICAL UD 03/18/19 03/18/19 History sevelamer carbonate 800 mg PO DAILYBB 03/18/19 03/18/19 History sevelamer carbonate [Renvela] 800 mg PO DAILYBL 03/18/19 03/18/19 History vitamin B complex 1 tab PO DAILY 03/18/19 03/18/19 History warfarin [Coumadin] 2.5 mg PO MOWEFR 03/18/19 03/18/19 History Past Med/Surg History Medical History GERD (gastroesophageal reflux disease) (Chronic) ESRD (end stage renal disease) on dialysis (Chronic) Dyslipidemia (Chronic) HTN (hypertension) (Chronic) Type 2 diabetes mellitus (Chronic) Pulmonary embolus (Chronic) Aortic valve insufficiency (Chronic) DVT (deep venous thrombosis) (Chronic) " 01/13/09 left leg " ESRD on dialysis (Chronic) 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) "01/27/09, OD " Atrial flutter (Chronic) Anemia (Chronic) Surgical History S/P ablation of atrial flutter (Chronic) History of total hip replacement (Chronic) History of hydrocelectomy (Chronic) H/O superior vena cava filter placement (Chronic) H/O removal of testicle (Chronic) H/O carotid endarterectomy (Chronic) "2008" S/P aortic valve replacement (Chronic) "bio prosthetic" S/P cardiac cath (Chronic) "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" Family History Mother Hypertension Brother Stroke Social History Preferred Language: Nepali Communication Ability: Effective Unemployment Claims Adjudicator Required: No Beliefs That Will Affect Care: None Current Living Situation: Spouse Other Information That Helps Us Care for You: No Feels Safe at Home: Yes Safety Concerns: Feels Safe At This Time Smoking Status: Never smoker Do You Dip or Chew Tobacco: No Second Hand Exposure: No Tobacco Cessation Education Requested by Patient: No Hx Alcohol Use: No Hx Substance Use: No Review of Systems Review of Systems: ROS per HPI, all other systems reviewed and negative Physical Exam Constitutional: WD/WN, vitals as above Eyes: PERRL, conjunctivae normal, anicteric sclerae ENMT: external ear and nose normal, oropharynx normal Respiratory: normal respiratory effort, lungs clear to auscultation Cardiovascular: Rate/Rhythm: regular rate and regular rhythm Vessels: normal peripheral pulses Extremities: + edema (+1-2 pitting edema BLE) Chest (Breasts): Additional Comments: Chest nontender to palpation Gastrointestinal (Abdomen): normal bowel sounds, soft, nontender, no hepatosplenomegaly Musculoskeletal: no cyanosis or clubbing, extremities motor strength 5/5 Dialysis fistula with positive thrill noted to left upper extremity Skin: no rashes, warm and dry Neurologic: PERRL, EOMI, accommodation nl, no face palsy, no dysarthria Psychiatric: A+Ox3, euthymic affect Results & Data Vital Signs (Past 12 Hours) Vital Signs Temp Pulse Pulse Resp BP BP Pulse Ox 03/18/19 19:55 75 16 115/58 L 96 03/18/19 18:58 36.5 C 83 18 126/65 96 Laboratory Results Short CBC 03/18/19 Range/Units 19:19 WBC 5.83 (4.8-10.8) K/uL Hgb 11.5 L (14.0-18.0) g/dL Hct 35.1 L (42-52) % Plt Count 106 L (130-400) K/uL BMP 03/18/19 19:19 Sodium 138 Potassium 3.8 Chloride 97 L Carbon Dioxide 32 BUN 30 H Creatinine 5.38 H* Glucose 230 H Calcium 8.5 Cardiac Enzymes 03/18/19 Range/Units 19:19 Troponin I 0.371 H* (0-0.045) ng/ml Liver Function 03/18/19 Range/Units 19:19 Total Bilirubin 0.4 (0.2-1) mg/dl Direct Bilirubin 0.1 (0-0.2) mg/dl AST 21 (15-37) U/L ALT 24 (12-78) U/L Alkaline Phosphatase 184 H (45-117) U/L Albumin 3.3 L (3.4-5.0) gm/dl Diagnostic Findings CXR IMPRESSION: 1. Cardiomegaly without overt pulmonary edema. 2. Interstitial coarsening, likely chronic. 3. Mild blunting of the costophrenic angles may be secondary to atelectasis or trace pleural effusions. Code Status & VTE Plan Code Status Patient is a full code as per my discussion with him. VTE Prophylaxis Plan VTE Prophylaxis will be ordered: Yes Supervising Physician Co-Signing Physician Notes Care coordinated with Hayley Rodas. Agree with above note. Patient seen and examined. Please refer to her notes for full details. Vital signs reviewed. Physical exam: General exam: Alert and oriented. Not in acute distress. CVS: S1 and S2 heard, regular rate and rhythm, no murmurs. RS: Clear to auscultation, no wheezing or crackles. ABD: Soft, bowel sounds present, nontender, no distention. AMMONIA DISTILLER: Nonfocal. EXT: lower extremity edema present, no erythema. Labs: Reviewed. Assessment and plan: Chest pain. 83M presents with chest pain one hour after eating food in left lower chest. Had similar episode yesterday. Moderate to severe in nature. Relieved by GI cock tail in Er. Currently asymptomatic and hemodynamically stable troponin mild elevation. Ekg St depressions in lateral leads. Monitor in tele serial ce and echo cardio consult on coumdain for hx of PE and INR 1.9. close monitor ESRD on HD. Other diagnosis and plan of care as per Myah Hardy CRNP.. Jeff spangler MD.
[2019-03-18] MEDS ORDERED: DEXTROSE 50% 50 ML SYRINGE IV PRN (22:48)
[2019-03-18] MEDS ORDERED: GLUCOSE 10 TABS/TUBE PO PRN (22:48)
[2019-03-18] MEDS ORDERED: ACETAMINOPHEN 325 MG TAB PO PRN (22:48)
[2019-03-18] MEDS ORDERED: GLUCAGON FOR INJ 1 MG VIAL SQ PRN (22:48)
[2019-03-18] MEDS ORDERED: GLUCOSE 40% GEL 15 GM TUBE PO PRN (22:48)
[2019-03-18] MEDS ORDERED: CARBOHYDRATES FOR HYPOGLYCEMIA PO PRN (22:48)
[2019-03-18] MEDS ORDERED: DOCUSATE SODIUM 100 MG CAP PO PRN (22:48)
[2019-03-18] MEDS ORDERED: WARFARIN SOD 5 MG TAB PO SCH (22:48)
[2019-03-18] MEDS ORDERED: NITROGLYCERIN SL 0.4 MG/TAB TAB SL PRN (22:48)
[2019-03-19] MEDS: PANTOprazole 40 MG TAB PO SCH ×2 (00:21→09:32)
[2019-03-19] MEDS: CARVEDILOL 12.5 MG TAB PO SCH ×2 (00:21→08:00)
[2019-03-19] MEDS: INSULIN ASPART 100 UNITS/ML 3 ML PEN SC SCH ×3 (00:22→11:36)
[2019-03-19] MEDS ORDERED: SEVELAMER HCL 800 MG TABLET PO SCH ×3 (06:30→15:30)
[2019-03-19 07:24] LABS: Prothrombin Time 19.5 Seconds (9.0-12.0)
--- NOTE | 2019-03-19 07:24 | Nephrology Consultation ---
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 I am asked to see him for esrd care. PMH includes HTN, DM2, atrial flutter, DVT remotely, aortic rgg s/p bioprosthetic AVR, STEPHY 2008. He dialyzes under my care TRSat at [facility] using AVF. Pt had L lateral lower chest / upper abdominal pain after eating, once on 03/17 and again on 03/18. chest fullnes/spressure did not radiate, no n/v, no sweating, not exertional. yesterday's second episode resolved on its own after 1 hr. 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 No further chest discomfort since presentation. NPO currently for cardiology eval Allergies Allergy/AdvReac Type Severity Reaction Status Date / Time aspirin Allergy Unknown . Verified 03/18/19 20:02 salicylates Allergy Unknown UNKNOWN Verified 03/18/19 20:02 Home Medications Home Medications Medication Instructions Recorded Confirmed Type acetaminophen [Tylenol Extra 500 mg PO Q6H PRN 06/14/18 03/18/19 History Strength] carvedilol [Coreg] 12.5 mg PO BID 06/14/18 03/18/19 History cholecalciferol (vitamin D3) 1,000 unit PO DAILY 06/14/18 03/18/19 History [Vitamin D3] omega 9-hbp-zen-fish oil [[place]-3] 1 tab PO DAILY 06/14/18 03/18/19 History omeprazole 20 mg PO DAILY 06/14/18 03/18/19 History sevelamer carbonate [Renvela] 1,600 mg PO DAILYBD 06/14/18 03/18/19 History warfarin [Coumadin] 5 mg PO SUTUTHSA 06/14/18 03/18/19 History B complex-vitamin C-folic acid 1 tab PO DAILY 03/18/19 03/18/19 History [Sherley-Neeraj] docusate sodium 100 mg PO BID PRN 03/18/19 03/18/19 History fluticasone propionate [Flonase 1 spray INTRANASAL DAILY PRN 03/18/19 03/18/19 History Allergy Relief] lidocaine-prilocaine 1 applic TOPICAL UD 03/18/19 03/18/19 History sevelamer carbonate 800 mg PO DAILYBB 03/18/19 03/18/19 History sevelamer carbonate [Renvela] 800 mg PO DAILYBL 03/18/19 03/18/19 History vitamin B complex 1 tab PO DAILY 03/18/19 03/18/19 History warfarin [Coumadin] 2.5 mg PO MOWEFR 03/18/19 03/18/19 History Patient History Medical History GERD (gastroesophageal reflux disease) (Chronic) ESRD (end stage renal disease) on dialysis (Chronic) Dyslipidemia (Chronic) HTN (hypertension) (Chronic) Type 2 diabetes mellitus (Chronic) Pulmonary embolus (Chronic) Aortic valve insufficiency (Chronic) DVT (deep venous thrombosis) (Chronic) " 01/13/09 left leg " ESRD on dialysis (Chronic) 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) "01/27/09, OD " Atrial flutter (Chronic) Anemia (Chronic) Surgical History S/P ablation of atrial flutter (Chronic) History of total hip replacement (Chronic) History of hydrocelectomy (Chronic) H/O superior vena cava filter placement (Chronic) H/O removal of testicle (Chronic) H/O carotid endarterectomy (Chronic) "2008" S/P aortic valve replacement (Chronic) "bio prosthetic" S/P cardiac cath (Chronic) "2012 - non obstructive CAD" Family History Mother Hypertension Brother Stroke Social History Preferred Language: Liberian Communication Ability: Effective Cable Ferry Operator Required: No Beliefs That Will Affect Care: None Current Living Situation: Spouse Other Information That Helps Us Care for You: No Feels Safe at Home: Yes Safety Concerns: Feels Safe At This Time Smoking Status: Never smoker Do You Dip or Chew Tobacco: No Second Hand Exposure: No Tobacco Cessation Education Requested by Patient: No Hx Alcohol Use: No Hx Substance Use: No Review of Systems Review of Systems: All systems reviewed & are unremarkable except as noted in HPI & below Constitutional: no fatigue and no weakness hungry Eyes: no worsening vision Ear, Nose, Mouth, Throat: no dry mouth Respiratory: no dyspnea and no pain on inspiration Cardiovascular: as per Subjective / HPI and + edema (intermittent) Gastrointestinal: + diarrhea/loose stools Genitourinary: + problem reported (no change in chronic voiding habits; voids most days) Neurologic: + gait abnormality (walker dependent) Endocrine: + fatigue Hematologic / Lymphatic: no easy bleeding Physical Exam Constitutional: well developed and well nourished on RA up in chair Eyes: EOM intact bilaterally ENMT: Ears: no external ear abnormality Nose: no external nose abnormality Mouth: + dry oral mucous membranes Neck: no nuchal rigidity Respiratory: normal respiratory effort Auscultation: + diminished lung sounds (sudeep bl bases) Cardiovascular: RRR, no murmur, no edema Extremities: + AV fistula (+ t/b) Gastrointestinal (Abdomen): Inspection/Auscultation: normal bowel sounds Percussion/Palpation: abdomen soft; abdomen nontender Musculoskeletal: Extremities: strength 5/5 throughout Skin: no rashes, warm and dry Neurologic: uribe, fluent speech, no tremor Psychiatric: A+Ox3, euthymic affect Results & Data Vital Signs (Past 12 Hours) Vital Signs Temp Pulse Resp BP Pulse Ox 03/19/19 04:00 36.6 C 74 18 101/60 96 03/18/19 22:36 36.5 C 78 20 150/66 H 94 03/18/19 22:00 73 18 134/73 94 03/18/19 21:00 72 17 129/71 94 03/18/19 19:55 75 16 115/58 L 96 Laboratory Results Abnormal lab results 03/18/19 03/18/19 03/18/19 Range/Units 19:19 19:19 19:19 RBC 3.07 L (4.7-6.1) M/uL Hgb 11.5 L (14.0-18.0) g/dL Hct 35.1 L (42-52) % MCV 114.3 H (80-100) fL MCH 37.5 H (25-34) pg RDW Std Deviation 64.2 H (36.4-46.3) fL RDW Coeff of Elvia 15.6 H (11.5-14.5) % Plt Count 106 L (130-400) K/uL MPV 11.8 H (7.4-10.4) fL Immature Gran # (Auto) 0.03 H (0.00-0.02) K/uL Lymph # (Auto) 0.97 L (1.2-3.4) K/uL [place] # (Auto) 0.71 H (0.11-0.59) K/uL PT 18.3 H (9.0-12.0) Seconds INR 1.9 H (0.9-1.1) Chloride 97 L (98-107) mmol/L BUN 30 H (7-18) mg/dl Creatinine 5.38 H* (0.6-1.4) mg/dl BUN/Creatinine Ratio 5.5 L (10-20) Glucose 230 H (70-99) mg/dl POC Glucose (70-99) Alkaline Phosphatase 184 H (45-117) U/L Troponin I 0.371 H* (0-0.045) ng/ml Total Protein 8.4 H (6.4-8.2) gm/dl Albumin 3.3 L (3.4-5.0) gm/dl Globulin 5.1 H (2.5-4.0) gm/dl Albumin/Globulin Ratio 0.7 L (0.9-2) Lipase 420 H (73-393) U/L 03/18/19 03/19/19 03/19/19 Range/Units 23:10 00:59 05:58 RBC (4.7-6.1) M/uL Hgb (14.0-18.0) g/dL Hct (42-52) % MCV (80-100) fL MCH (25-34) pg RDW Std Deviation (36.4-46.3) fL RDW Coeff of Elvia (11.5-14.5) % Plt Count (130-400) K/uL MPV (7.4-10.4) fL Immature Gran # (Auto) (0.00-0.02) K/uL Lymph # (Auto) (1.2-3.4) K/uL [place] # (Auto) (0.11-0.59) K/uL PT (9.0-12.0) Seconds INR (0.9-1.1) Chloride (98-107) mmol/L BUN (7-18) mg/dl Creatinine (0.6-1.4) mg/dl BUN/Creatinine Ratio (10-20) Glucose (70-99) mg/dl POC Glucose 152 H 134 H (70-99) Alkaline Phosphatase (45-117) U/L Troponin I 0.634 H* (0-0.045) ng/ml Total Protein (6.4-8.2) gm/dl Albumin (3.4-5.0) gm/dl Globulin (2.5-4.0) gm/dl Albumin/Globulin Ratio (0.9-2) Lipase (73-393) U/L Diagnostic Findings cxr IMPRESSION: 1. Cardiomegaly without overt pulmonary edema. 2. Interstitial coarsening, likely chronic. 3. Mild blunting of the costophrenic angles may be secondary to atelectasis or trace pleural effusions.
[2019-03-19 07:43] LABS: BUN Creatinine Ratio 6.1 (10-20); Calcium 8.7 mg/dl (8.5-10.1); Creatinine Clr Calc Pharmacy 10.1 ml/min; Est GFR (Non-African American) 7.8; Potassium 4.5 mmol/L (3.5-5.1)
[2019-03-19 07:48] LABS: Hematocrit (blood only) 34.2 % (42-52); Hemoglobin 11.3 g/dL (14.0-18.0); Mean Corpuscular Volume 115.2 fL (80-100); RDW Coefficient of Variation 15.4 % (11.5-14.5); RDW Standard Deviation 64.5 fL (36.4-46.3); Red Blood Count 2.97 M/uL (4.7-6.1); White Blood Count 5.58 K/uL (4.8-10.8)
[2019-03-19 08:09] LABS: Mean Platelet Volume 12.2 fL (7.4-10.4); Platelet Count 107 K/uL (130-400)
[2019-03-19 08:53] LABS: Platelet Estimate Decreased (Normal)
[2019-03-19] MEDS ORDERED: OMEGA-3 (PURIFIED FISH OIL) 1 GM CAP PO SCH (09:00)
[2019-03-19] MEDS ORDERED: NEPHROCAPS PO SCH (09:00)
[2019-03-19] MEDS ORDERED: VITAMIN B COMPLEX TAB PO SCH (09:00)
[2019-03-19] MEDS ORDERED: CHOLECALCIFEROL 1,000 UNITS TAB PO SCH (09:00)
[2019-03-19 10:17] LABS: Estimated Average Glucose 148 mg/dl; Hemoglobin A1C 6.8 % (4.5-5.6)
--- NOTE | 2019-03-19 11:07 | Cardiology Consultation ---
Date of Consultation March 19, 2019 Assessment & Plan (1) Atypical chest pain: Patient symptoms appear atypical for cardiac ischemia. Predominant complaints of upper epigastric left flank. Symptoms occurred postprandial without recurrence. Now comfortable Echocardiogram ordered to assess LV function and valve structure exclude pericardial effusion If study is unremarkable likely refer for outpatient stress testing continue usual medication (2) GERD (gastroesophageal reflux disease): (3) S/P aortic valve replacement: (4) Elevated troponin: Likely secondary to chronic renal insufficiency. Will review echocardiogram today to assess valve structure and LV function History of Present Illness Requesting Physician: Dr Dockery Attending Physician: Janice Dockery, DO History of Present Illness Patient is a an 83-year-old male with ongoing complex cardiac issues which include 1. History of recurrent atrial flutter for which patient underwent catheter ablation July 2016 without clinical recurrence 2. Bioprosthetic aortic valve replacement 04/22/2012 with 23 millimeter Rkistie-Barraza pericardial valve 3. Nonobstructive CAD on preoperative cardiac catheterization in 2011 4. End-stage renal disease for which the patient on chronic dialysis replacement 5. History of remote life-threatening pulmonary embolism for which he remains on chronic anticoagulation 6. Status post right carotid endarterectomy, 2008, < 50% bilateral carotid stenosis on duplex in 2017. Patient presents this admission noting having had 2 episodes of postprandial discomfort most recent day prior to admission symptoms described as high of a hard pressure in the left chest and left upper epigastric region. Symptoms were not specifically exacerbated by exercise or activity and resolve spontaneously. He mentioned these to dialysis nurse who prompted ER evaluation. He presented asymptomatic and has had no further symptoms since presentation. Cardiac enzymes were notable for troponin elevation but in the setting of chronic renal insufficiency He denies any sense tachypalpitations syncope or near syncope. Notes no recent change in exercise capacity or tolerance. No unexplained fevers chills or infections. Appetite weighted been stable. No worsening edema with volume status generally well-controlled per patient. Blood pressures been controlled. He has had no acute changes in medical regimen Allergies Allergy/AdvReac Type Severity Reaction Status Date / Time aspirin Allergy Unknown . Verified 03/18/19 20:02 salicylates Allergy Unknown UNKNOWN Verified 03/18/19 20:02 Home Medications Home Medications Medication Instructions Recorded Confirmed Type acetaminophen [Tylenol Extra 500 mg PO Q6H PRN 06/14/18 03/18/19 History Strength] carvedilol [Coreg] 12.5 mg PO BID 06/14/18 03/18/19 History cholecalciferol (vitamin D3) 1,000 unit PO DAILY 06/14/18 03/18/19 History [Vitamin D3] omega 0-hom-vop-fish oil [[place]-3] 1 tab PO DAILY 06/14/18 03/18/19 History omeprazole 20 mg PO DAILY 06/14/18 03/18/19 History sevelamer carbonate [Renvela] 1,600 mg PO DAILYBD 06/14/18 03/18/19 History warfarin [Coumadin] 5 mg PO SUTUTHSA 06/14/18 03/18/19 History B complex-vitamin C-folic acid 1 tab PO DAILY 03/18/19 03/18/19 History [Sherley-Neeraj] docusate sodium 100 mg PO BID PRN 03/18/19 03/18/19 History fluticasone propionate [Flonase 1 spray INTRANASAL DAILY PRN 03/18/19 03/18/19 History Allergy Relief] lidocaine-prilocaine 1 applic TOPICAL UD 03/18/19 03/18/19 History sevelamer carbonate 800 mg PO DAILYBB 03/18/19 03/18/19 History sevelamer carbonate [Renvela] 800 mg PO DAILYBL 03/18/19 03/18/19 History vitamin B complex 1 tab PO DAILY 03/18/19 03/18/19 History warfarin [Coumadin] 2.5 mg PO MOWEFR 03/18/19 03/18/19 History Patient History Medical History GERD (gastroesophageal reflux disease) (Chronic) ESRD (end stage renal disease) on dialysis (Chronic) Dyslipidemia (Chronic) HTN (hypertension) (Chronic) Type 2 diabetes mellitus (Chronic) Pulmonary embolus (Chronic) Aortic valve insufficiency (Chronic) DVT (deep venous thrombosis) (Chronic) " 01/13/09 left leg " ESRD on dialysis (Chronic) 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) "01/27/09, OD " Atrial flutter (Chronic) Anemia (Chronic) Surgical History S/P ablation of atrial flutter (Chronic) History of total hip replacement (Chronic) History of hydrocelectomy (Chronic) H/O superior vena cava filter placement (Chronic) H/O removal of testicle (Chronic) H/O carotid endarterectomy (Chronic) "STEPHY 2008" S/P aortic valve replacement (Chronic) "bio prosthetic" S/P cardiac cath (Chronic) "2012 - non obstructive CAD" Family History Mother Hypertension Brother Stroke Social History Preferred Language: French Communication Ability: Effective Hose Mender Required: No Beliefs That Will Affect Care: None Current Living Situation: Spouse Other Information That Helps Us Care for You: No Feels Safe at Home: Yes Safety Concerns: Feels Safe At This Time Smoking Status: Never smoker Do You Dip or Chew Tobacco: No Second Hand Exposure: No Tobacco Cessation Education Requested by Patient: No Hx Alcohol Use: No Hx Substance Use: No Review of Systems Review of Systems: All systems reviewed & are unremarkable except as noted in HPI & below Physical Exam Constitutional: WD/WN, vitals as above Eyes: PERRL, conjunctivae normal, anicteric sclerae ENMT: external ear and nose normal, oropharynx normal Neck: trachea midline, no thyromegaly Respiratory: normal respiratory effort, lungs clear to auscultation Cardiovascular: Rate/Rhythm: regular rate and regular rhythm Heart Sounds: normal S1, normal S2 and + murmur (Grade 2/6 systolic no diastolic) Palpation: normal PMI Vessels: + carotid bruit (Right with well-healed endarterectomy scar); no JVD Extremities: no edema Gastrointestinal (Abdomen): normal bowel sounds, soft, nontender, no hepatosplenomegaly Results & Data Vital Signs (Past 12 Hours) Vital Signs Temp Pulse Resp BP Pulse Ox 03/19/19 08:00 36.6 C 74 20 133/78 96 03/19/19 04:00 36.6 C 74 18 101/60 96 Laboratory Results Laboratory Results - last 24 hr 03/18/19 03/18/19 03/18/19 19:19 19:19 19:19 WBC 5.83 RBC 3.07 L Hgb 11.5 L Hct 35.1 L MCV 114.3 H MCH 37.5 H MCHC 32.8 RDW Std Deviation 64.2 H RDW Coeff of Elvia 15.6 H Plt Count 106 L MPV 11.8 H Immature Gran % (Auto) 0.5 Neut % (Auto) 66.1 Lymph % (Auto) 16.6 Brantley % (Auto) 12.2 Eos % (Auto) 4.1 Baso % (Auto) 0.5 Immature Gran # (Auto) 0.03 H Neut # (Auto) 3.85 Lymph # (Auto) 0.97 L [place] # (Auto) 0.71 H Eos # (Auto) 0.24 Baso # (Auto) 0.03 Platelet Estimate Macrocytosis Present PT 18.3 H INR 1.9 H Sodium 138 Potassium 3.8 Chloride 97 L Carbon Dioxide 32 Anion Gap 9.0 BUN 30 H Creatinine 5.38 H* Est Cr Clr Drug Dosing 11.3 Est GFR ( Amer) 10.5 Est GFR (Non-Af Amer) 9.1 BUN/Creatinine Ratio 5.5 L Glucose 230 H POC Glucose Estimat Average Glucose Hemoglobin A1c Calcium 8.5 Phosphorus 3.2 Magnesium 2.0 Total Bilirubin 0.4 Direct Bilirubin 0.1 AST 21 ALT 24 Alkaline Phosphatase 184 H Troponin I 0.371 H* Total Protein 8.4 H Albumin 3.3 L Globulin 5.1 H Albumin/Globulin Ratio 0.7 L Lipase 420 H Nasal Screen MRSA (PCR) 03/18/19 03/18/19 03/19/19 23:10 23:35 00:59 WBC RBC Hgb Hct MCV MCH MCHC RDW Std Deviation RDW Coeff of Elvia Plt Count MPV Immature Gran % (Auto) Neut % (Auto) Lymph % (Auto) [place] % (Auto) Eos % (Auto) Baso % (Auto) Immature Gran # (Auto) Neut # (Auto) Lymph # (Auto) [place] # (Auto) Eos # (Auto) Baso # (Auto) Platelet Estimate Macrocytosis PT INR Sodium Potassium Chloride Carbon Dioxide Anion Gap BUN Creatinine Est Cr Clr Drug Dosing Est GFR ( Amer) Est GFR (Non-Af Amer) BUN/Creatinine Ratio Glucose POC Glucose 152 H Estimat Average Glucose Hemoglobin A1c Calcium Phosphorus Magnesium Total Bilirubin Direct Bilirubin AST ALT Alkaline Phosphatase Troponin I 0.634 H* Total Protein Albumin Globulin Albumin/Globulin Ratio Lipase Nasal Screen MRSA (PCR) Negative 03/19/19 03/19/1903/19/19 05:58 06:38 06:38 WBC 5.58 RBC 2.97 L Hgb 11.3 L Hct 34.2 L MCV 115.2 H MCH 38.0 H MCHC 33.0 RDW Std Deviation 64.5 H RDW Coeff of Elvia 15.4 H Plt Count 107 L MPV 12.2 H Immature Gran % (Auto) Neut % (Auto) Lymph % (Auto) [place] % (Auto) Eos % (Auto) Baso % (Auto) Immature Gran # (Auto) Neut # (Auto) Lymph # (Auto) [place] # (Auto) Eos # (Auto) Baso # (Auto) Platelet Estimate Decreased L Macrocytosis PT 19.5 H INR 2.0 H Sodium Potassium Chloride Carbon Dioxide Anion Gap BUN Creatinine Est Cr Clr Drug Dosing Est GFR ( Amer) Est GFR (Non-Af Amer) BUN/Creatinine Ratio Glucose POC Glucose 134 H Estimat Average Glucose Hemoglobin A1c Calcium Phosphorus Magnesium Total Bilirubin Direct Bilirubin AST ALT Alkaline Phosphatase Troponin I Total Protein Albumin Globulin Albumin/Globulin Ratio Lipase Nasal Screen MRSA (PCR) 03/19/19 03/19/19 03/19/19 06:38 06:38 06:38 WBC RBC Hgb Hct MCV MCH MCHC RDW Std Deviation RDW Coeff of Elvia Plt Count MPV Immature Gran % (Auto) Neut % (Auto) Lymph % (Auto) [place] % (Auto) Eos % (Auto) Baso % (Auto) Immature Gran # (Auto) Neut # (Auto) Lymph # (Auto) [place] # (Auto) Eos # (Auto) Baso # (Auto) Platelet Estimate Macrocytosis PT INR Sodium 139 Potassium 4.5 D Chloride 100 Carbon Dioxide 32 Anion Gap 7.0 BUN 37 H Creatinine 6.12 H* D Est Cr Clr Drug Dosing 10.1 Est GFR ( Amer) 9.0 Est GFR (Non-Af Amer) 7.8 BUN/Creatinine Ratio 6.1 L Glucose 130 H POC Glucose Estimat Average Glucose 148 Hemoglobin A1c 6.8 H Calcium 8.7 Phosphorus Magnesium Total Bilirubin Direct Bilirubin AST ALT Alkaline Phosphatase Troponin I 0.954 H* Total Protein Albumin Globulin Albumin/Globulin Ratio Lipase 364 Nasal Screen MRSA (PCR) 03/19/19 07:23 WBC RBC Hgb Hct MCV MCH MCHC RDW Std Deviation RDW Coeff of Elvia Plt Count MPV Immature Gran % (Auto) Neut % (Auto) Lymph % (Auto) [place] % (Auto) Eos % (Auto) Baso % (Auto) Immature Gran # (Auto) Neut # (Auto) Lymph # (Auto) [place] # (Auto) Eos # (Auto) Baso # (Auto) Platelet Estimate Macrocytosis PT INR Sodium Potassium Chloride Carbon Dioxide Anion Gap BUN Creatinine Est Cr Clr Drug Dosing Est GFR ( Amer) Est GFR (Non-Af Amer) BUN/Creatinine Ratio Glucose POC Glucose 141 H Estimat Average Glucose Hemoglobin A1c Calcium Phosphorus Magnesium Total Bilirubin Direct Bilirubin AST ALT Alkaline Phosphatase Troponin I Total Protein Albumin Globulin Albumin/Globulin Ratio Lipase Nasal Screen MRSA (PCR) ECG Additional Comments: EKG: Sinus rhythm with low atrial voltage nonspecific ST segment changes no acute ischemic changes
--- NOTE | 2019-03-19 11:43 | Cardiology Progress Note ---
Date of Service March 19, 2019 Subjective Please refer to previous in consultation. Echocardiogram was reviewed study demonstrated septal abnormality consistent with prior outpatient testing and prior cardiovascular surgery. Bioprosthesis is functioning normally. There is no pericardial effusion Would recommend outpatient stress nuclear testing current symptoms atypical for myocardial ischemia treat underlying gastroesophageal reflux Results & Data Vital Signs (Past 12 Hours) Vital Signs Temp Pulse Resp BP Pulse Ox 03/19/19 11:28 36.4 C L 65 20 121/70 97 03/19/19 08:00 36.6 C 74 20 133/78 96 03/19/19 04:00 36.6 C 74 18 101/60 96
[2019-03-19] MEDS ORDERED: Nursing to Pharmacy Communication ONE (13:20)
--- NOTE | 2019-03-19 14:27 | Discharge Summary ---
Date of Service March 19, 2019 Admission HPI Per Admitting Provider 83-year-old male who presents the ED with chest pain. Patient has had 2 episodes of chest pain in the past 2 days. Yesterday, about 1 hour after eating dinner, patient developed a left lower chest/left upper abdominal pain. Pain lasted for about 1 hour and resolved on its own. Patient had his routine dialysis session today and reported his symptoms to the nurse who instructed patient to return to the ED if he had any further episodes. Earlier today, patient reports he had a slice of blueberry pie and shortly after he developed very similar pain as he experienced last night. Patient came to the ED for evaluation. Patient was given GI cocktail and p.o. Pepcid with resolution of pain. No associated shortness of breath, nausea, diaphoresis, lightheadedness, syncopal event. Patient has chronic exertional shortness of breath and lower extremity edema which is unchanged from baseline. Reports he has been overall doing well recently. He denies vomiting and diarrhea. No other recent illness, fevers, chills. No urinary symptoms. In the ED, EKG shows mild ST depressions in the lateral leads. Troponin is mildly elevated at 0.371. Other labs are unremarkable/at baseline. Admission Exam Per Admitting Provider WD/WN, vitals as above Eyes: PERRL, conjunctivae normal, anicteric sclerae ENMT: external ear and nose normal, oropharynx normal Respiratory: normal respiratory effort, lungs clear to auscultation Cardiovascular: Rate/Rhythm: regular rate and regular rhythm Vessels: normal peripheral pulses Extremities: + edema (+1-2 pitting edema BLE) Chest (Breasts): Additional Comments: Chest nontender to palpation Gastrointestinal (Abdomen): normal bowel sounds, soft, nontender, no hepatosplenomegaly Musculoskeletal: no cyanosis or clubbing, extremities motor strength 5/5 Dialysis fistula with positive thrill noted to left upper extremity Skin: no rashes, warm and dry Neurologic: PERRL, EOMI, accommodation nl, no face palsy, no dysarthria Psychiatric: A+Ox3, euthymic affect Principal Diagnosis atypical chest pain-noncardiac etiology elevated troponin 2/2 chronic renal insufficiency Discharge Data Allergies Allergy/AdvReac Type Severity Reaction Status Date / Time aspirin Allergy Unknown . Verified 03/18/19 20:02 salicylates Allergy Unknown UNKNOWN Verified 03/18/19 20:02 Consultations 06/18/19 20:35 ED Decision to Admit Stat 03/18/19 22:48 Consult Cardiology Routine Consult Case Management - Discharge Planning Routine Consult Nephrology Routine Hospital Course (1) Chest pain: (2) Elevated troponin: (3) S/P ablation of atrial flutter: (4) Pulmonary embolus: (5) Type 2 diabetes mellitus: (6) ESRD (end stage renal disease) on dialysis: (7) S/P aortic valve replacement: Patient was admitted to telemetry. He received a GI cocktail and p.o. Pepcid in the ED with resolution of the pain. PPI was increased to twice daily. Cardiology was consulted and recommended that the patient symptoms appear to be atypical for cardiac ischemia as symptoms occurred postprandial without recurrence. A resting echocardiogram was performed revealing moderate concentric left ventricular hypertrophy and septal wall motion consistent with postoperative state. A bioprosthetic aortic valve was seen with freely mobile leaflets and a normal gradient. An outpatient nuclear stress test was recommended. At time of discharge patient was asymptomatic, mentating and ambulating at baseline and tolerating p.o. He was hemodynamic stable and afebrile. There were no events on telemetry while he was admitted. Physical exam was unremarkable. He was discharged in stable condition with close primary care follow-up and close follow-up with cardiology for outpatient stress test as above. We discussed an optimal plan for him to control his heartburn better. He will continue his PPI and prefers ranitidine every 12 hour twice daily as needed for breakthrough heartburn. Total Time Total Time Spent Total Time Spent (In Minutes): 60 Total Time Includes: Examination of the Patient, Discharge Planning, Medication Reconciliation, Communication With Other Providers and Other (arranged followup) Discharge Plan Discharge Items Patient Disposition: Home - Self-Care Reason For Visit: CHEST PAIN, ELEVATED TROP Discharge Diagnosis: atypical chest pain-resolved ESRD acid reflux Condition: Good Discharge Goals: Decrease discomfort Activity: Resume your previous activity Non-emergency contact: Primary Care Provider Call non-emergency contact if: you have any medication questions, your symptoms worsen, your pain is not controlled, your pain is worsening, your pain is unusual for you and you have a fever Follow-up/Referrals: Zach Gooden MD [Primary Care Provider] - Diet: Dialysis Renal and Heart Healthy Addtl Provider Instructions: Please take all medications as prescribed on discharge list below. You have the following appointment with primary care: 03/27/2019 11:20 AM Zach Gooden MD Internal Medicine [facility] You should be contacted by someone with [facility] Cardiology regarding scheduling and instructions for your outpatient stress test next week. Please discuss starting a STATIN with your [facility] on follow-up. Please follow-up with the Anticoagulation Clinic within one week of discharge for a recheck of your INR. It was a pleasure taking care of you! Please call if you have any questions or problems. You can reach a [facility] hospitalist on duty at [facility] 24 hours a day by calling [phone]. Take care of yourself. Janice Dockery, DO [facility] Pres[facility]: New ranitidine HCl 150 mg capsule 150 mg PO Q12H PRN (Reason: heartburn) Qty: 30 RF: 0 Continued carvedilol [Coreg] 12.5 mg tablet 12.5 mg PO BID RF: 0 acetaminophen [Tylenol Extra Strength] 500 mg Tablet 500 mg PO Q6H PRN (Reason: Pain) RF: 0 warfarin [Coumadin] 5 mg tablet 5 mg PO SUTUTHSA RF: 0 omeprazole 20 mg capsule,delayed release(DR/EC) 20 mg PO DAILY RF: 0 cholecalciferol (vitamin D3) [Vitamin D3] 1,000 unit Capsule 1,000 unit PO DAILY RF: 0 sevelamer carbonate [Renvela] 800 mg tablet 1,600 mg PO DAILYBD RF: 0 [place]-3 350 mg-235 mg- 90 mg-597 mg Capsule,Delayed Release(Dr/Ec) 1 tab PO DAILY RF: 0 warfarin [Coumadin] 5 mg tablet 2.5 mg PO MOWEFR RF: 0 Sherley-Neeraj 0.8 mg tablet 1 tab PO DAILY RF: 0 fluticasone propionate [Flonase Allergy Relief] 50 mcg/actuation [place],Suspension 1 spray INTRANASAL DAILY PRN (Reason: Nasal Congestion) RF: 0 docusate sodium 100 mg Tablet 100 mg PO BID PRN (Reason: Constipation) RF: 0 sevelamer carbonate [Renvela] 800 mg tablet 800 mg PO DAILYBL RF: 0 lidocaine-prilocaine 2.5-2.5 % cream 1 applic topical UD RF: 0 vitamin B complex Tablet 1 tab PO DAILY RF: 0 sevelamer carbonate 800 mg tablet 800 mg PO DAILYBB RF: 0 Stand-Alone Forms: [facility] Discharge Orders: Discharge Order (Routine); Ordered 03/19/19 Ordered By: Janice Dockery Admission Data Admit Date/Time: 03/18/19 21:12 Attending Provider: Janice Dockery Admit Provider: Jeff Cisneros Primary Care Provider: Zach Gooden Other Providers: Ashly Myrick ; Aubrey Muse Service: Telemetry Other Interventions: Discharge Summary Assessment (RN) Last Done: 03/19/19 14:29 DC Date/Time DO NOT enter until pt leaves facility: 03/19/19 15:06
[2019-03-19] MEDS ORDERED: WARFARIN SOD 2.5 MG TAB PO SCH (16:00)
[2019-03-19] MEDS ORDERED: INSULIN ASPART 100 UNITS/ML 3 ML PEN SC SCH (16:30)
== END 2019-03-19 15:06 | disposition home or self-care (01) ==
LOC: ED 18:54 → 2S 21:12

== ENCOUNTER 2019-04-17 16:44 | Inpatient (IN) ==
[2019-04-17] MEDS ORDERED: ONDANSETRON INJ 2 MG/ML 2 ML VIAL IV STA (17:02)
--- NOTE | 2019-04-17 17:09 | Emergency Department Note ---
Entered by Guilherme Mansfield acting as a scribe for Curt Corral DO History of Present Illness General Chief complaint: Fever Stated complaint: FEVER, DIARRHEA Time Seen by Provider: 04/17/19 16:51 Source: patient History of Present Illness Provider complaint: Diarrhea Onset (ago): day(s) Location: left and right Quality: + other (worsening) Associated symptoms: + chest pain, + cough and + fever/chills; no nausea/vomiting The patient is an 84 year old male with a hx of GERD, ESRD, HTN, DM, PE, and A flutter who presents to the Emergency Room with complaints of diarrhea and a fever that began a few days ago. He notes that he was recently discharged from [facility] with the same symptoms and has been "going downhill since". He adds that he had 3 episodes of diarrhea today. The patient states that he has not ate anything for the past 2-3 days except for 1 piece of toast today. The patient also complains of some minor chest pain and a cough. He denies nausea/vomiting. The patient notes a past surgical hx of open heart surgery. Home Medications Home Medications Medication Instructions Recorded Confirmed Type [place]-3 1 tab PO DAILY 06/14/18 04/17/19 History acetaminophen [Tylenol Extra 500 mg PO Q6H PRN 06/14/18 04/17/19 History Strength] carvedilol [Coreg] 12.5 mg PO BID 06/14/18 04/17/19 History cholecalciferol (vitamin D3) 1,000 unit PO DAILY 06/14/18 04/17/19 History [Vitamin D3] omeprazole 20 mg PO DAILY 06/14/18 04/17/19 History sevelamer carbonate [Renvela] 1,600 mg PO DAILYBD 06/14/18 04/17/19 History warfarin [Coumadin] 5 mg PO SUTUTHSA 06/14/18 04/17/19 History Sherley-Neeraj 1 tab PO DAILY 03/18/19 04/17/19 History docusate sodium 100 mg PO BID PRN 03/18/19 04/17/19 History fluticasone propionate [Flonase 1 spray INTRANASAL DAILY PRN 03/18/19 04/17/19 History Allergy Relief] lidocaine-prilocaine 1 applic TOPICAL UD 03/18/19 04/17/19 History sevelamer carbonate 800 mg PO DAILYBB 03/18/19 04/17/19 History sevelamer carbonate [Renvela] 800 mg PO DAILYBL 03/18/19 04/17/19 History vitamin B complex 1 tab PO DAILY 03/18/19 04/17/19 History warfarin [Coumadin] 2.5 mg PO MOWEFR 03/18/19 04/17/19 History ranitidine HCl 150 mg PO Q12H PRN #30 cap 03/19/19 04/17/19 Rx cefdinir 300 mg PO BID 10 Days #18 cap 04/15/19 04/17/19 Rx Allergies Allergy/AdvReac Type Severity Reaction Status Date / Time aspirin Allergy Unknown . 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) "01/27/09, OD " Atrial flutter (Chronic) Anemia (Chronic) Surgical History S/P ablation of atrial flutter (Chronic) History of total hip replacement (Chronic) History of hydrocelectomy (Chronic) H/O superior vena cava filter placement (Chronic) H/O removal of testicle (Chronic) H/O carotid endarterectomy (Chronic) "2008" S/P aortic valve replacement (Chronic) "bio prosthetic" S/P cardiac cath (Chronic) "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 and A total of 10 systems reviewed and were otherwise negative Physical Exam Vital Signs Vital Signs - 24 hr 04/17/19 16:52 04/17/19 17:14 04/17/19 18:27 Temperature 38.2 C H Temperature Source Oral Sepsis Recent Fever Within 48 Hours Yes Sepsis Action Taken by Nursing No Action Required Pulse Rate 115 H Pulse Rate [Apical] 112 H Respiratory Rate 20 18 Respiratory Depth Normal Blood Pressure 122/82 Blood Pressure [Left Arm] 126/68 Blood Pressure Mean 95 Blood Pressure Mean [Left Arm] 87 Pulse Oximetry 93 99 99 Oxygen Delivery Method Room Air Room Air Nasal Cannula Oxygen Flow Rate 2 CONSTITUTIONAL/VITAL SIGNS: Reviewed / noted above. GENERAL: Non-toxic in appearance. INTEGUMENTARY: Warm, dry, and [place]. HEAD: Normocephalic. EYES: without scleral icterus or trauma. ENT/OROPHARYNX: clear and moist. LYMPHADENOPATHY/NECK: Is supple without lymphadenopathy or meningismus. RESPIRATORY: Lungs clear and equal. CARDIOVASCULAR: Regular rate and rhythm. GI/ABDOMEN: Soft with mild tenderness to palpation RLQ. No organomegaly or pulsatile mass. No rebound or guarding. Normal bowel sounds. EXTREMITIES: Warm and well perfused. BACK: No CVA tenderness. NEUROLOGICAL: Intact without focal deficits. PSYCHIATRIC: normal affect. MUSCULOSKELETAL: Normally developed with good muscle tone. Course 1654: The patient was evaluated in room C09. A complete history and physical exam was performed. 0: I discussed the patient's case with Sofia Sepulveda PA-C. She will evaluate the patient for further management. Administered Medications Azithromycin 500 mg/ Dextrose 255 mls @ 125 mls/hr IV ONE ONE Stop: 04/17/19 19:59 Last Admin: 04/17/19 18:25 Dose: 125 mls/hr Documented by: [id number] Discontinued Medications Ceftriaxone Sodium (Rocephin) Confirm Administered Dose 1,000 mg IV .STK-MED ONE Stop: 04/17/19 18:03 Last Admin: 04/17/19 18:15 Dose: 1,000 mg Documented by: [id number] Sodium Chloride (Nss) 500 mls @ 999 mls/hr IV .Q31M JAMES Stop: 04/17/19 17:45 Last Infusion: 04/17/19 17:55 Dose: 0 mls/hr Documented by: [id number] Admin: 04/17/19 17:18 Dose: 999 mls/hr Documented by: [id number] Ceftriaxone Sodium 1,000 mg/ (Dextrose) 60 mls @ 100 mls/hr IV NOW STA; Protocol Stop: 04/17/19 18:32 Last Admin: 04/17/19 18:15 Dose: Not Given Documented by: [id number] Ondansetron HCl (Zofran) 4 mg IV NOW STA Stop: 04/17/19 17:03 Last Admin: 04/17/19 17:18 Dose: 4 mg Documented by: [id number] Medical Decision Making Differential Diagnosis Differential diagnosis: Etiologies such as viral syndrome, otitis, pharyngitis, pneumonia, influenza, meningitis, urinary tract infection, sepsis, bacteremia, as well as others were entertained. Medical Records Attestation: I reviewed the patient's medical records. Home Medications Current Medication List: was personally reviewed by me Laboratory Data Attestation: I reviewed the patient's lab results. Result diagrams: 04/17/19 16:50 04/17/19 16:50 Lab Results 04/17/19 04/17/19 04/17/19 Range/Units 16:50 16:50 16:50 WBC 16.48 H (4.8-10.8) K/uL RBC 3.06 L (4.7-6.1) M/uL Hgb 11.3 L (14.0-18.0) g/dL Hct 34.2 L (42-52) % MCV 111.8 H (80-100) fL MCH 36.9 H (25-34) pg MCHC 33.0 (32-36) g/dL RDW Std Deviation 60.9 H (36.4-46.3) fL RDW Coeff of Elvia 14.9 H (11.5-14.5) % Plt Count 105 L (130-400) K/uL MPV 11.8 H (7.4-10.4) fL Immature Gran % (Auto) 0.5 % Neut % (Auto) 85.4 % Lymph % (Auto) 6.6 % [place] % (Auto) 7.2 % Eos % (Auto) 0.1 % Baso % (Auto) 0.2 % Immature Gran # (Auto) 0.08 H (0.00-0.02) K/uL Neut # (Auto) 14.10 H (1.4-6.5) K/uL Lymph # (Auto) 1.08 L (1.2-3.4) K/uL [place] # (Auto) 1.18 H (0.11-0.59) K/uL Eos # (Auto) 0.01 (0-0.5) K/uL Baso # (Auto) 0.03 (0-0.2) K/uL Macrocytosis Present PT 25.2 H (9.0-12.0) Seconds INR 2.6 H (0.9-1.1) Sodium 131 L (136-145) mmol/L Potassium 5.2 H (3.5-5.1) mmol/L Chloride 92 L (98-107) mmol/L Carbon Dioxide 24 (21-32) mmol/L Anion Gap 15.0 H (3-11) BUN 68 H (7-18) mg/dl Creatinine 8.80 H* (0.6-1.4) mg/dl Est Cr Clr Drug Dosing Not Reportable Est GFR ( Amer) 5.8 Est GFR (Non-Af Amer) 5.0 BUN/Creatinine Ratio 7.9 L (10-20) Glucose 169 H (70-99) mg/dl POC Lactic Acid Alvin (0.90-1.70) mmol/L Calcium 8.9 (8.5-10.1) mg/dl Total Bilirubin 0.7 (0.2-1) mg/dl AST 30 (15-37) U/L ALT 23 (12-78) U/L Alkaline Phosphatase 102 (45-117) U/L Total Protein 8.5 H (6.4-8.2) gm/dl Albumin 2.9 L (3.4-5.0) gm/dl Globulin 5.6 H (2.5-4.0) gm/dl Albumin/Globulin Ratio 0.5 L (0.9-2) 07/18/19 Range/Units 18:21 WBC (4.8-10.8) K/uL RBC (4.7-6.1) M/uL Hgb (14.0-18.0) g/dL Hct (42-52) % MCV (80-100) fL MCH (25-34) pg MCHC (32-36) g/dL RDW Std Deviation (36.4-46.3) fL RDW Coeff of Elvia (11.5-14.5) % Plt Count (130-400) K/uL MPV (7.4-10.4) fL Immature Gran % (Auto) % Neut % (Auto) % Lymph % (Auto) % [place] % (Auto) % Eos % (Auto) % Baso % (Auto) % Immature Gran # (Auto) (0.00-0.02) K/uL Neut # (Auto) (1.4-6.5) K/uL Lymph # (Auto) (1.2-3.4) K/uL [place] # (Auto) (0.11-0.59) K/uL Eos # (Auto) (0-0.5) K/uL Baso # (Auto) (0-0.2) K/uL Macrocytosis PT (9.0-12.0) Seconds INR (0.9-1.1) Sodium (136-145) mmol/L Potassium (3.5-5.1) mmol/L Chloride (98-107) mmol/L Carbon Dioxide (21-32) mmol/L Anion Gap (3-11) BUN (7-18) mg/dl Creatinine (0.6-1.4) mg/dl Est Cr Clr Drug Dosing Est GFR ( Amer) Est GFR (Non-Af Amer) BUN/Creatinine Ratio (10-20) Glucose (70-99) mg/dl POC Lactic Acid Alvin 1.76 H (0.90-1.70) mmol/L Calcium (8.5-10.1) mg/dl Total Bilirubin (0.2-1) mg/dl AST (15-37) U/L ALT (12-78) U/L Alkaline Phosphatase (45-117) U/L Total Protein (6.4-8.2) gm/dl Albumin (3.4-5.0) gm/dl Globulin (2.5-4.0) gm/dl Albumin/Globulin Ratio (0.9-2) Imaging Data Radiologist's Impression: Radiology results as stated below per my review and the radiologist's interpretation: SINGLE VIEW CHEST CLINICAL HISTORY: Generalized weakness. FINDINGS: An AP, portable, upright chest radiograph is compared to study dated 04/15/2019. The examination is degraded by portable technique and patient rotation. The patient is status post midline sternotomy. The heart is enlarged and there is atherosclerotic calcification of the thoracic aorta. The pulmonary vasculature is noncongested. There is dense airspace consolidation at the right lung base. A small right pleural effusion is suspected. Atelectasis is noted at the left lung base. No pneumothorax is seen. The skeletal structures are osteopenic. The bony thorax is grossly intact. IMPRESSION: 1. Cardiomegaly without radiographic evidence of congestive failure. 2. There is dense airspace consolidation at the right lung base with a small right pleural effusion. The appearance is typical for pneumonia/aspiration pneu monitis. Clinical correlation will be required and radiographic follow-up to resolution is recommended. Electronically signed by: Guilherme Cummings M.D. 04/17/2019 5:[address] SCAN OF THE ABDOMEN AND PELVIS WITHOUT CONTRAST CLINICAL HISTORY: Right lower quadrant abdominal pain, fever, vomiting. COMPARISON STUDY: No previous studies for comparison. TECHNIQUE: CT scan of the abdomen and pelvis was performed from the lung bases to the proximal femurs. Images are reviewed in the axial, sagittal, and coronal planes. IV contrast was not administered for this examination. A dose lowering technique was utilized adhering to the principles of ALARA. CT DOSE: 813.72 mGy.cm FINDINGS: Lower chest: There is a small right pleural effusion. There are right middle lobe airspace opacity suspicious for pneumonia. There are dependent right lower lobe airspace opacities, atelectasis versus pneumonia. There is suspected mild subcarinal lymphadenopathy. Liver: The unenhanced liver is normal in size, contour, and attenuation. There is no intrahepatic biliary ductal dilatation. Gallbladder: There are gallbladder calculi versus vicarious excretion. Spleen: Normal in size and attenuation. Pancreas: Unremarkable. Adrenal glands: Unremarkable. Kidneys: There are extensive bilateral vascular calcifications. This makes exclusion of tiny renal calculi difficult. There is no hydronephrosis. No ureteral or bladder calculi are visualized. There is a 27 mm exophytic right renal mass. This slightly exceeds water attenuation and is therefore indeterminate. There is a 3 cm left renal cyst. Bowel: There are no transition zone to indicate bowel obstruction. There is no evidence of acute diverticulitis. The appendix appears normal. Peritoneum: There is no intraperitoneal free air or abdominal ascites. Vasculature: There are extensive vascular calcifications. There is an IVC filter with multiple struts protruding beyond the IVC lumen. There is no evidence for abdominal aortic aneurysm Adenopathy: None. Pelvic viscera: The bladder, and pelvic viscera are unremarkable. Skeletal structures: There is a total right hip arthroplasty. There are multi level degenerative changes within the spine. No destructive lesions are visualized. IMPRESSION: 1. No evidence of bowel obstruction. No evidence of free air 2. Normal appendix. No evidence of acute diverticulitis 3. 3 cm left renal cyst. Indeterminate 27 mm right renal lesion which cannot be further characterized on this noncontrast study 4. No evidence of hydronephrosis. No ureteral or bladder calculi identified 5. Dense right middle lobe pulmonary consolidation consistent with pneumonia. Sm all right pleural effusion. Mild subcarinal lymphadenopathy. Electronically signed by: Justice Gutierres M.D. 04/17/2019 6:13 PM ECG Data Attestation: I personally reviewed and interpreted this ECG as follows: Indication: chest pain Rate (beats per minute): 113 Rhythm: normal sinus Findings: no PAC, no PVC, no ST elevation and no ectopy Blood Pressure Blood Pressure Findings: Normal blood pressure MDM Narrative This is an 84-year-old male who presents to the ED with a chief complaint of having the same thing he was here for last time. He reports generalized fatigue as well as weakness and diarrhea. He has had about 3 loose stools or diarrhea as today. His previous records show that he had a right lower lobe pneumonia. He was discharged on Ceftin ear. The patient's exam was unremarkable other than some tenderness to palpation the right lower quadrant. The patient is febrile tachycardic. The family reports only a small amount of toast to eat in the past several days. The patient's white blood cell count was 16.4. INR is 2.6. He is on Coumadin. Potassium was 5.2. BUN is 68 and creatinine is 8.8. The family reports that the patient did miss his dialysis today. The patient's chest x-ray reveals a right lower lobe pneumonia. A CT scan of the chest reveals a right middle lobe pneumonia. Because of the patient's fever, tachycardia, leukocytosis and pneumonia, he will be admitted for sepsis and was treated here with IV antibiotics including IV Rocephin and IV Zithromax. He was also given 500 cc of normal saline for hydration and Zofran IV for nausea. Impression & Plan Pneumonia involving right lung, Sepsis Critical Care Time Critical Care Time: Yes Total Critical Care Time: 33 I have personally spent 33 minutes of critical care time in the direct management of this patient. This includes bedside care, interpretation of diagnostic studies, and testing, discussion with consultants, patient, and family members, and other required patient management activities. This 33 minutes is in excess of all separately billable procedures. Discharge Plan Visit Data Chief Complaint: Fever Stated Complaint: FEVER, DIARRHEA ED Provider: Curt Corral Discharge Problem: Pneumonia involving right lung, Sepsis Patient Disposition: Being Evaluated by Hospitalist Forms Stand Alone Forms: [facility] Prescriptions Prescriptions: No Action cefdinir 300 mg capsule 300 mg PO BID 10 Days Qty: 18 RF: 0 carvedilol [Coreg] 12.5 mg tablet 12.5 mg PO BID RF: 0 acetaminophen [Tylenol Extra Strength] 500 mg Tablet 500 mg PO Q6H PRN (Reason: Pain) RF: 0 warfarin [Coumadin] 5 mg tablet 5 mg PO SUTUTHSA RF: 0 omeprazole 20 mg capsule,delayed release(DR/EC) 20 mg PO DAILY RF: 0 cholecalciferol (vitamin D3) [Vitamin D3] 1,000 unit Capsule 1,000 unit PO DAILY RF: 0 sevelamer carbonate [Renvela] 800 mg tablet 1,600 mg PO DAILYBD RF: 0 [place]-3 350 mg-235 mg- 90 mg-597 mg Capsule,Delayed Release(Dr/Ec) 1 tab PO DAILY RF: 0 warfarin [Coumadin] 5 mg tablet 2.5 mg PO MOWEFR RF: 0 Sherley-Neeraj 0.8 mg tablet 1 tab PO DAILY RF: 0 fluticasone propionate [Flonase Allergy Relief] 50 mcg/actuation [place],Suspension 1 spray INTRANASAL DAILY PRN (Reason: Nasal Congestion) RF: 0 docusate sodium 100 mg Tablet 100 mg PO BID PRN (Reason: Constipation) RF: 0 sevelamer carbonate [Renvela] 800 mg tablet 800 mg PO DAILYBL RF: 0 lidocaine-prilocaine 2.5-2.5 % cream 1 applic topical UD RF: 0 vitamin B complex Tablet 1 tab PO DAILY RF: 0 sevelamer carbonate 800 mg tablet 800 mg PO DAILYBB RF: 0 ranitidine HCl 150 mg capsule 150 mg PO Q12H PRN (Reason: heartburn) Qty: 30 RF: 0 Referrals Referrals: Zach Gooden MD [Primary Care Provider] - Discharge Problem: Pneumonia involving right lung Qualifiers: Pneumonia type: due to unspecified organism Lung location: middle lobe of lung Qualified Code(s): J18.1 - Lobar pneumonia, unspecified organism Sepsis Qualifiers: Sepsis type: sepsis due to unspecified organism Qualified Code(s): A41.9 - Sepsis, unspecified organism The scribe's documentation has been prepared under my direction and personally reviewed by me in its entirety. I confirm that the note above accurately reflects all work, treatment, procedures, and medical decision making performed by me.
[2019-04-17] MEDS ORDERED: SODIUM CHLORIDE 0.9% 500 ML IV SCH (17:15)
[2019-04-17 17:20] LABS: INR 2.6 (0.9-1.1); Prothrombin Time 25.2 Seconds (9.0-12.0)
[2019-04-17 17:27] LABS: Hematocrit (blood only) 34.2 % (42-52); Hemoglobin 11.3 g/dL (14.0-18.0); Mean Corpuscular Volume 111.8 fL (80-100); Mean Platelet Volume 11.8 fL (7.4-10.4); Platelet Count 105 K/uL (130-400); RDW Coefficient of Variation 14.9 % (11.5-14.5); RDW Standard Deviation 60.9 fL (36.4-46.3); Red Blood Count 3.06 M/uL (4.7-6.1); White Blood Count 16.48 K/uL (4.8-10.8)
--- NOTE | 2019-04-17 17:27 | XRay Report ---
SINGLE VIEW CHEST CLINICAL HISTORY: Generalized weakness. FINDINGS: An AP, portable, upright chest radiograph is compared to study dated 04/15/2019. The examina tion is degraded by portable technique and patient rotation. The patient is status post midline henrik rnotomy. The heart is enlarged and there is atherosclerotic calcification of the thoracic aorta. The pulmonary vasculature is noncongested. There is dense airspace consolidation at the right lung base. A small right pleural effusion is suspected. Atelectasis is noted at the left lung base. No pneumotho rax is seen. The skeletal structures are osteopenic. The bony thorax is grossly intact. IMPRESSION: 1. Cardiomegaly without radiographic evidence of congestive failure. 2. There is dense airspace consolidation at the right lung base with a small right pleural effusion. The appearance is typical for pneumonia/aspiration pneumonitis. Clinical correlation will be required and radiographic follow-up to resolution is recommended. Electronically signed by: Guilherme Cummings M.D. 04/17/2019 5:26 PM
[2019-04-17 17:38] LABS: Basophils # (auto) 0.03 K/uL (0-0.2); Basophils % (auto) 0.2 %; Eosinophils # (auto) 0.01 K/uL (0-0.5); Eosinophils % (auto) 0.1 %; Immature Granulocytes # (auto) 0.08 K/uL (0.00-0.02); Immature Granulocytes % (auto) 0.5 %; Lymphocytes # (auto) 1.08 K/uL (1.2-3.4); Lymphocytes % (auto) 6.6 %; Macrocytosis Present; Monocytes # (auto) 1.18 K/uL (0.11-0.59); Monocytes % (auto) 7.2 %; Neutrophils % (auto) 85.4 %
[2019-04-17 17:45] LABS: Alanine Aminotransferase 23 U/L (12-78); Albumin Globulin Ratio 0.5 (0.9-2); Albumin Level 2.9 gm/dl (3.4-5.0); Alkaline Phosphatase 102 U/L (45-117); Aspartate Aminotransferase 30 U/L (15-37); BUN Creatinine Ratio 7.9 (10-20); Bilirubin,Total 0.7 mg/dl (0.2-1); Blood Urea Nitrogen 68 mg/dl (7-18); Calcium 8.9 mg/dl (8.5-10.1); Carbon Dioxide 24 mmol/L (21-32); Chloride 92 mmol/L (98-107); Est GFR (African American) 5.8; Globulin 5.6 gm/dl (2.5-4.0); Glucose 169 mg/dl (70-99); Potassium 5.2 mmol/L (3.5-5.1); Sodium 131 mmol/L (136-145); Total Protein 8.5 gm/dl (6.4-8.2)
[2019-04-17] MEDS ORDERED: AZITHROMYCIN 500 MG in DEXTROSE 5% 250 ML IV ONE (17:57)
[2019-04-17] MEDS ORDERED: cefTRIAXone SODIUM 1,000 MG in DEXTROSE 5% 50 ML IV STA (17:57)
[2019-04-17] MEDS ORDERED: cefTRIAXone SODIUM 1000MG/50ML D5W IV ONE (18:02)
--- NOTE | 2019-04-17 18:14 | CT Scan Report ---
CT SCAN OF THE ABDOMEN AND PELVIS WITHOUT CONTRAST CLINICAL HISTORY: Right lower quadrant abdominal pain, fever, vomiting. COMPARISON STUDY: No previous studies for comparison. TECHNIQUE: CT scan of the abdomen and pelvis was performed from the lung bases to the proximal femurs . Images are reviewed in the axial, sagittal, and coronal planes. IV contrast was not administered fo r this examination. A dose lowering technique was utilized adhering to the principles of ALARA. CT DOSE: 813.72 mGy.cm FINDINGS: Lower chest: There is a small right pleural effusion. There are right middle lobe airspace opacity loomis spicious for pneumonia. There are dependent right lower lobe airspace opacities, atelectasis versus p neumonia. There is suspected mild subcarinal lymphadenopathy. Liver: The unenhanced liver is normal in size, contour, and attenuation. There is no intrahepatic nelly iary ductal dilatation. Gallbladder: There are gallbladder calculi versus vicarious excretion. Spleen: Normal in size and attenuation. Pancreas: Unremarkable. Adrenal glands: Unremarkable. Kidneys: There are extensive bilateral vascular calcifications. This makes exclusion of tiny renal ca lculi difficult. There is no hydronephrosis. No ureteral or bladder calculi are visualized. There is a 27 mm exophytic right renal mass. This slightly exceeds water attenuation and is therefore indeterm inate. There is a 3 cm left renal cyst. Bowel: There are no transition zone to indicate bowel obstruction. There is no evidence of acute dive rticulitis. The appendix appears normal. Peritoneum: There is no intraperitoneal free air or abdominal ascites. Vasculature: There are extensive vascular calcifications. There is an IVC filter with multiple struts protruding beyond the IVC lumen. There is no evidence for abdominal aortic aneurysm Adenopathy: None. Pelvic viscera: The bladder, and pelvic viscera are unremarkable. Skeletal structures: There is a total right hip arthroplasty. There are multilevel degenerative huitron es within the spine. No destructive lesions are visualized. IMPRESSION: 1. No evidence of bowel obstruction. No evidence of free air 2. Normal appendix. No evidence of acute diverticulitis 3. 3 cm left renal cyst. Indeterminate 27 mm right renal lesion which cannot be further characterized on this noncontrast study 4. No evidence of hydronephrosis. No ureteral or bladder calculi identified 5. Dense right middle lobe pulmonary consolidation consistent with pneumonia. Small right pleural eff usion. Mild subcarinal lymphadenopathy. Electronically signed by: Justice Gutierres M.D. 04/17/2019 6:13 PM
--- NOTE | 2019-04-17 19:35 | History & Physical Report ---
Date of Service April 17, 2019 Assessment & Plan (1) Sepsis: (2) Pneumonia involving right lung: This is a 84-year-old male who has a significant past medical history of ESRD on HD //, T2DM, chronic right-sided CHF, HTN, HLD, nonobstructive CAD, history of bioprosthetic AVR, silica pneumoconiosis, chronic thrombocytopenia, paroxysmal atrial flutter, history of PE on chronic warfarin therapy, history of carotid artery stenosis status post right CEA who presents to [facility] ED secondary to ill feeling x3 to 4 days. Patient met sepsis criteria upon admission with tachycardia 110s and leukocytosis 16k Blood cultures were obtained POC lactic acid 1.76, procalcitonin 2.03 Patient received broad-spectrum IV antibiotics with IV Rocephin and Zithromax He received 500 mL of IVF. Cautiously given ESRD Source: Right lower lobe pneumonia Admit to PCU Change IV antibiotics to Zosyn, dosed per pharmacy (pt recently hospitalized overnight 03/18 but does not meet criteria for HAP, need to r/o aspiration) Aggressive pulm toilet with xopenex/ipratropium, incentive spirometry supplemental O2 as necessary follow blood cultures, cbc consult pt/ot/st (3) Accelerated junctional rhythm: noted on admitting ecg and ED tele monitor hx of PAF s/p ablation, was also noted in afib/flutter during recent ED visit check karly cordero observe on tele if continues consult cardiology (4) ESRD (end stage renal disease) on dialysis: Pt missed HD today Consult nephrology Dr. Cason - spoke to Dr. Cason, pt to receive HD in a.m. 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 Primary Care Provider: Zach Gooden MD This is a 84-year-old male who has a significant past medical history of ESRD on HD //, T2DM, chronic right-sided CHF, HTN, HLD, nonobstructive CAD, history of bioprosthetic AVR, silica pneumoconiosis, chronic thrombocytopenia, paroxysmal atrial flutter, history of PE on chronic warfarin therapy, history of carotid artery stenosis status post right CEA who presents to [facility] ED secondary to ill feeling x3 to 4 days. Daughter and son-in-law are at bedside. He initially presented to ED on 04/15 secondary to ill feeling. He was diagnosed with right lower lobe pneumonia and it was also noted he was going in and out of atrial flutter. Patient ended up being discharged from ED with Omnicef. Patient has been complaining of a moist productive cough of purulent sputum for the past few days, feeling feverish, chills, sweats, increased dyspnea on exertion, diarrhea. "I feel miserable." He feels diarrhea started prior to initiating Omnicef. Daughter feels he has had increased swelling of his lower extremities and feet. He was unable to attend dialysis this morning due to not feeling well. Per daughter he has also been having off-and-on right-sided abdominal discomfort as well as chest pain. Patient was recently hospitalized 03/18 secondary to chest pain. His troponins were unremarkable. Echocardiogram revealed EF 60 to 65% with normal left ventricular systolic function and functioning bioprosthetic AVR. Patient denies any lightheadedness, dizziness, syncope, headache, neck stiffness, chest pain, palpitations, nausea, vomiting, abdominal pain. He produces minimal urine but denies any dysuria, hematuria, increased urgency or frequency. He denies any melena or hematochezia. Overall his appetite has been very poor and overall feels weak. Allergies Allergy/AdvReac Type Severity Reaction Status Date / Time aspirin Allergy Unknown . Verified 04/17/19 18:16 salicylates Allergy Unknown UNKNOWN Verified 04/17/19 18:16 Home Medications Home Medications Medication Instructions Recorded Confirmed Type [place]-3 1 tab PO DAILY 06/14/18 04/17/19 History acetaminophen [Tylenol Extra 500 mg PO Q6H PRN 06/14/18 04/17/19 History Strength] carvedilol [Coreg] 12.5 mg PO BID 06/14/18 04/17/19 History cholecalciferol (vitamin D3) 1,000 unit PO DAILY 06/14/18 04/17/19 History [Vitamin D3] omeprazole 20 mg PO DAILY 06/14/18 04/17/19 History sevelamer carbonate [Renvela] 1,600 mg PO DAILYBD 06/14/18 04/17/19 History warfarin [Coumadin] 5 mg PO SUTUTHSA 06/14/18 04/17/19 History Sherley-Jus 1 tab PO DAILY 03/18/19 04/17/19 History docusate sodium 100 mg PO BID PRN 03/18/19 04/17/19 History fluticasone propionate [Flonase 1 spray INTRANASAL DAILY PRN 03/18/19 04/17/19 History Allergy Relief] lidocaine-prilocaine 1 applic TOPICAL UD 03/18/19 04/17/19 History sevelamer carbonate 800 mg PO DAILYBB 03/18/19 04/17/19 History sevelamer carbonate [Renvela] 800 mg PO DAILYBL 03/18/19 04/17/19 History vitamin B complex 1 tab PO DAILY 03/18/19 04/17/19 History warfarin [Coumadin] 2.5 mg PO MOWEFR 03/18/19 04/17/19 History ranitidine HCl 150 mg PO Q12H PRN #30 cap 03/19/19 04/17/19 Rx cefdinir 300 mg PO BID 10 Days #18 cap 04/15/19 04/17/19 Rx Past Med/Surg History Medical History GERD (gastroesophageal reflux disease) (Chronic) ESRD (end stage renal disease) on dialysis (Chronic) Dyslipidemia (Chronic) HTN (hypertension) (Chronic) Type 2 diabetes mellitus (Chronic) Pulmonary embolus (Chronic) Aortic valve insufficiency (Chronic) DVT (deep venous thrombosis) (Chronic) " 01/13/09 left leg " 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) "01/27/09, OD " Atrial flutter (Chronic) Anemia (Chronic) Surgical History S/P ablation of atrial flutter (Chronic) History of total hip replacement (Chronic) History of hydrocelectomy (Chronic) H/O superior vena cava filter placement (Chronic) H/O removal of testicle (Chronic) H/O carotid endarterectomy (Chronic) "STEPHY 2008" S/P aortic valve replacement (Chronic) "bio prosthetic" S/P cardiac cath (Chronic) "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" Family History Mother Hypertension Brother Stroke Social History Preferred Language: [place] Communication Ability: Effective Beliefs That Will Affect Care: None marital status: Current Living Situation: Spouse Feels Safe at Home: Yes Smoking Status: Never smoker Second Hand Exposure: No Hx Alcohol Use: No Hx Substance Use: No Review of Systems Review of Systems: As noted per HPI, 10 systems reviewed and negative unless noted above. Physical Exam Physical Exam: Gen: Elderly, ill and toxic-appearing male, lying in bed, NAD, answers questions appropriate, conversing easily Head: Normocephalic, Atraumatic Eyes: Sclera normal, no conjunctival injection, PERRLA, EOMI ENT: Gross hearing intact, normal pharynx, mucous membranes moist, positive thrush Neck: supple, no adenopathy, No JVD, no bruit, Resp: Clear to auscultation b/l with decreased breath sounds at bases right greater than left, no wheeze, rales, rhonchi. 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 Bilateral venous stasis changes, negative erythema, warmth negative Homans sign, left upper extremity AV fistula Skin: warm, moist, no rash, negative turgor, cap refill < 2sec Neuro: Alert and oriented x 3, speech normal, good mood/affect, cran nerve 2-12 intact grossly : deferred Results & Data Vital Signs (Past 12 Hours) Vital Signs Temp Pulse Pulse Resp BP BP Pulse Ox 04/17/19 19:25 37.8 C H 109 H 21 107/64 98 04/17/19 18:27 112 H 18 126/68 99 04/17/19 17:14 99 04/17/19 16:52 38.2 C H 115 H 20 122/82 93 Laboratory Results Short CBC 04/17/19 04/17/19 04/17/19 Range/Units 16:50 16:50 18:21 WBC 16.48 H (4.8-10.8) K/uL Hgb 11.3 L (14.0-18.0) g/dL Hct 34.2 L (42-52) % Plt Count 105 L (130-400) K/uL Creatinine 8.80 H* (0.6-1.4) mg/dl POC Lactic Acid Alvin 1.76 H (0.90-1.70) mmol/L BMP 04/17/19 16:50 Sodium 131 L Potassium 5.2 H Chloride 92 L Carbon Dioxide 24 BUN 68 H Creatinine 8.80 H* Glucose 169 H Calcium 8.9 Liver Function 04/17/19 Range/Units 16:50 Total Bilirubin 0.7 (0.2-1) mg/dl AST 30 (15-37) U/L ALT 23 (12-78) U/L Alkaline Phosphatase 102 (45-117) U/L Albumin 2.9 L (3.4-5.0) gm/dl Diagnostic Findings CXR: IMPRESSION: 1. Cardiomegaly without radiographic evidence of congestive failure. 2. There is dense airspace consolidation at the right lung base with a small right pleural effusion. The appearance is typical for pneumonia/aspiration pneumonitis. Clinical correlation will be required and radiographic follow-up to resolution is recommended. CT Abd/Pelvis: IMPRESSION: 1. No evidence of bowel obstruction. No evidence of free air 2. Normal appendix. No evidence of acute diverticulitis 3. 3 cm left renal cyst. Indeterminate 27 mm right renal lesion which cannot be further characterized on this noncontrast study 4. No evidence of hydronephrosis. No ureteral or bladder calculi identified 5. Dense right middle lobe pulmonary consolidation consistent with pneumonia. Small right pleural effusion. Mild subcarinal lymphadenopathy. Medications Administered Azithromycin 500 mg/ Dextrose 255 mls @ 125 mls/hr IV ONE ONE Stop: 04/17/19 19:59 Last Admin: 04/17/19 18:25 Dose: 125 mls/hr Documented by: [id number] Discontinued Medications Ceftriaxone Sodium (Rocephin) Confirm Administered Dose 1,000 mg IV .STK-MED ONE Stop: 04/17/19 18:03 Last Admin: 04/17/19 18:15 Dose: 1,000 mg Documented by: [id number] Sodium Chloride (Nss) 500 mls @ 999 mls/hr IV .Q31M JAMES Stop: 04/17/19 17:45 Last Infusion: 04/17/19 17:55 Dose: 0 mls/hr Documented by: [id number] Admin: 04/17/19 17:18 Dose: 999 mls/hr Documented by: [id number] Ceftriaxone Sodium 1,000 mg/ (Dextrose) 60 mls @ 100 mls/hr IV NOW STA; Protocol Stop: 04/17/19 18:32 Last Admin: 04/17/19 18:15 Dose: Not Given Documented by: [id number] Ondansetron HCl (Zofran) 4 mg IV NOW STA Stop: 04/17/19 17:03 Last Admin: 04/17/19 17:18 Dose: 4 mg Documented by: [id number] ECG Rate (beats per minute): 113 Rhythm: junctional Code Status & VTE Plan Code Status Full Code VTE Prophylaxis Plan VTE Prophylaxis will be ordered: Yes Supervising Physician Co-Signing Physician Notes Attending addendum The patient was seen and examined in emergency room This is a 84-year-old male who has a significant past medical history of ESRD on HD /, T2DM, chronic right-sided CHF, HTN, HLD, nonobstructive CAD, history of bioprosthetic AVR, silica pneumoconiosis, chronic thrombocytopenia, paroxysmal atrial flutter, history of PE on chronic warfarin therapy, history of carotid artery stenosis status post right CEA who presents to [facility] ED secondary to ill feeling x3 to 4 days. Still complains to have some right lower quadrant pain Cough with some shortness of breath and leg swelling On examination Moderate distress at rest due to shortness of breath and pain Tachycardic with blood pressure on the lower side with temperature of 37.8 Chest-bilateral basal coarse crackles more on the right side Heart-S1-S2 regular Abdomen-distended, soft, mildly tender right lower quadrant without guarding and or rigidity Extremities-2+ edema bilaterally Admission labs and imaging studies including EKGs noted Has right lower lobe infiltration, fluid overload secondary to end-stage renal disease and junctional rhythm Agree with assessment and plan as outlined above by ADRIANA Sommer Dr (1) Pneumonia involving right lung Lung location: middle lobe of lung Pneumonia type: due to unspecified organism Qualified Code(s): J18.1 - Lobar pneumonia, unspecified organism (2) Sepsis Sepsis type: sepsis due to unspecified organism Qualified Code(s): A41.9 - Sepsis, unspecified organism
[2019-04-17] MEDS ORDERED: POLYETHYLENE (MIRALAX) 17 GM PACK PO PRN (20:14)
[2019-04-17] MEDS ORDERED: GLUCOSE 10 TABS/TUBE PO PRN (20:14)
[2019-04-17] MEDS ORDERED: PIPERACILL/TAZOBAC CONSULT ACTIVE PRN (20:14)
[2019-04-17] MEDS ORDERED: ACETAMINOPHEN 325 MG TAB PO PRN (20:14)
[2019-04-17] MEDS ORDERED: CARBOHYDRATES FOR HYPOGLYCEMIA PO PRN (20:14)
[2019-04-17] MEDS ORDERED: FLUTICASONE PROPIONATE NA SPR 16 GM BTL PRN (20:14)
[2019-04-17] MEDS ORDERED: GLUCAGON FOR INJ 1 MG VIAL SQ PRN (20:14)
[2019-04-17] MEDS ORDERED: DEXTROSE 50% 50 ML SYRINGE IV PRN (20:14)
[2019-04-17] MEDS ORDERED: XOPENEX/ATROVENT 0.63mg/0.5MG NEB COMBO NEB SCH (20:14)
[2019-04-17] MEDS ORDERED: ONDANSETRON INJ 2 MG/ML 2 ML VIAL IV PRN (20:14)
[2019-04-17] MEDS ORDERED: GLUCOSE 40% GEL 15 GM TUBE PO PRN (20:14)
[2019-04-17 20:16] LABS: Magnesium 1.9 mg/dl (1.8-2.4); Phosphorus 4.7 mg/dl (2.5-4.9)
[2019-04-17] MEDS: LEVALBUTEROL HCL 0.63 MG/3 ML NEB NEB SCH (20:44)
[2019-04-17] MEDS: IPRATROPIUM BROMIDE NEB SOLN 0.02% 2.5 ML VIAL INH SCH (20:44)
[2019-04-17] MEDS ORDERED: PIPERACILLIN/TAZOBACTAM 4.5 GM in DEXTROSE 5% 100 ML IV ONE (21:00)
[2019-04-17] MEDS: CARVEDILOL 12.5 MG TAB PO SCH (21:33)
[2019-04-17] MEDS: NYSTATIN SUSP 500,000 U/5 ML UDC PO SCH (21:33)
[2019-04-17] MEDS: INSULIN ASPART 100 UNITS/ML 3 ML PEN SC SCH (21:53)
[2019-04-18] MEDS: IPRATROPIUM BROMIDE NEB SOLN 0.02% 2.5 ML VIAL INH SCH ×4 (02:53→18:58)
[2019-04-18] MEDS: LEVALBUTEROL HCL 0.63 MG/3 ML NEB NEB SCH ×4 (02:53→18:58)
[2019-04-18] MEDS: PIPERACILLIN/TAZOBACTAM 4.5 GM in DEXTROSE 5% 100 ML IV SCH ×2 (04:09→16:54)
[2019-04-18 05:06] LABS: Prothrombin Time 28.8 Seconds (9.0-12.0)
[2019-04-18 05:15] LABS: Basophils # (auto) 0.01 K/uL (0-0.2); Basophils % (auto) 0.1 %; Hematocrit (blood only) 30.6 % (42-52); Hemoglobin 10.3 g/dL (14.0-18.0); Immature Granulocytes % (auto) 0.7 %; Lymphocytes # (auto) 0.59 K/uL (1.2-3.4); Lymphocytes % (auto) 3.8 %; Macrocytosis Present; Mean Corpuscular Hgb Conc 33.7 g/dL (32-36); Mean Corpuscular Volume 110.9 fL (80-100); Mean Platelet Volume 12.1 fL (7.4-10.4); Monocytes # (auto) 1.33 K/uL (0.11-0.59); Monocytes % (auto) 8.7 %; Neutrophils # (auto) 13.33 K/uL (1.4-6.5); Neutrophils % (auto) 86.7 %; Platelet Count 99 K/uL (130-400); Platelet Estimate Decreased (Normal); RDW Coefficient of Variation 14.9 % (11.5-14.5); RDW Standard Deviation 59.8 fL (36.4-46.3); Red Blood Count 2.76 M/uL (4.7-6.1); White Blood Count 15.36 K/uL (4.8-10.8)
[2019-04-18] MEDS ORDERED: SODIUM CHLORIDE 0.9% 1000ML 1,000 ML IV ONE (05:38)
[2019-04-18 05:53] LABS: BUN Creatinine Ratio 8.2 (10-20); Calcium 7.8 mg/dl (8.5-10.1); Creatinine Clr Calc Pharmacy 6.6 ml/min; Est GFR (African American) 5.5; Est GFR (Non-African American) 4.7; Magnesium 1.8 mg/dl (1.8-2.4); Phosphorus 5.5 mg/dl (2.5-4.9); Potassium 5.5 mmol/L (3.5-5.1)
[2019-04-18 06:06] LABS: Estimated Average Glucose 154 mg/dl
[2019-04-18] MEDS: HYDROCORTISONE SOD 100 MG in SYRINGE 0 ML IV SCH ×3 (06:20→18:27)
[2019-04-18] MEDS: SEVELAMER HCL 800 MG TABLET PO SCH ×3 (07:48→16:55)
[2019-04-18] MEDS: INSULIN ASPART 100 UNITS/ML 3 ML PEN SC SCH ×3 (08:14→17:04)
[2019-04-18] MEDS: NYSTATIN SUSP 500,000 U/5 ML UDC PO SCH ×4 (08:14→23:58)
[2019-04-18] MEDS: CARVEDILOL 12.5 MG TAB PO SCH ×2 (08:14→23:58)
[2019-04-18] MEDS: CHOLECALCIFEROL 1,000 UNITS TAB PO SCH (08:15)
[2019-04-18] MEDS: PANTOprazole 40 MG TAB PO SCH (08:15)
[2019-04-18] MEDS: VITAMIN B COMPLEX TAB PO SCH (08:15)
[2019-04-18] MEDS: OMEGA-3 (PURIFIED FISH OIL) 1 GM CAP PO SCH (08:15)
[2019-04-18] MEDS ORDERED: NON-FORMULARY MEDICATION (Vitamin B Complex 1 TAB) PO SCH (09:00)
[2019-04-18] MEDS ORDERED: SODIUM CHLORIDE 0.9% 1000ML 1,000 ML IV PRN (13:17)
[2019-04-18] MEDS ORDERED: EPOETIN ALFA 10,000 UNITS/ML VIAL IV ONE (13:17)
--- NOTE | 2019-04-18 13:17 | Nephrology Consultation ---
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 PMH includes HD on TRSat HD, a flutter, chronic R HF, DM, obesity, HL, chronic anemia / thrombocytopenia. He dialyses under my care at [facility] using AVF > yesterday was first tx in 4 years that he's missed. He started feeling poorly about 72 hrs ago w/ extremely low energy. he had emesis and N yesterday; also w/ ongoing abdominal discomfort. He had been seen in ER on 04/15 w/ cx of PNA, d/c on omnicef. on presentation yesterday, HR was in 110s, wbc 16K. he was started on rocephin and zosyn. he tells me he feels much better today and is "ready for d/c" Allergies Allergy/AdvReac Type Severity Reaction Status Date / Time aspirin Allergy Unknown . Verified 04/17/19 18:16 salicylates Allergy Unknown UNKNOWN Verified 04/17/19 18:16 Home Medications Home Medications Medication Instructions Recorded Confirmed Type [place]-3 1 tab PO DAILY 06/14/18 04/17/19 History acetaminophen [Tylenol Extra 500 mg PO Q6H PRN 06/14/18 04/17/19 History Strength] carvedilol [Coreg] 12.5 mg PO BID 06/14/18 04/17/19 History cholecalciferol (vitamin D3) 1,000 unit PO DAILY 06/14/18 04/17/19 History [Vitamin D3] omeprazole 20 mg PO DAILY 06/14/18 04/17/19 History sevelamer carbonate [Renvela] 1,600 mg PO DAILYBD 06/14/18 04/17/19 History warfarin [Coumadin] 5 mg PO SUTUTHSA 06/14/18 04/17/19 History Sherley-Neeraj 1 tab PO DAILY 03/18/19 04/17/19 History docusate sodium 100 mg PO BID PRN 03/18/19 04/17/19 History fluticasone propionate [Flonase 1 spray INTRANASAL DAILY PRN 03/18/19 04/17/19 History Allergy Relief] lidocaine-prilocaine 1 applic TOPICAL UD 03/18/19 04/17/19 History sevelamer carbonate 800 mg PO DAILYBB 03/18/19 04/17/19 History sevelamer carbonate [Renvela] 800 mg PO DAILYBL 03/18/19 04/17/19 History vitamin B complex 1 tab PO DAILY 03/18/19 04/17/19 History warfarin [Coumadin] 2.5 mg PO MOWEFR 03/18/19 04/17/19 History ranitidine HCl 150 mg PO Q12H PRN #30 cap 03/19/19 04/17/19 Rx cefdinir 300 mg PO BID 10 Days #18 cap 04/15/19 04/17/19 Rx Patient History Medical History GERD (gastroesophageal reflux disease) (Chronic) ESRD (end stage renal disease) on dialysis (Chronic) Dyslipidemia (Chronic) HTN (hypertension) (Chronic) Type 2 diabetes mellitus (Chronic) Pulmonary embolus (Chronic) Aortic valve insufficiency (Chronic) DVT (deep venous thrombosis) (Chronic) " 01/13/09 left leg " 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) "01/27/09, OD " Atrial flutter (Chronic) Anemia (Chronic) Surgical History S/P ablation of atrial flutter (Chronic) History of total hip replacement (Chronic) History of hydrocelectomy (Chronic) H/O superior vena cava filter placement (Chronic) H/O removal of testicle (Chronic) H/O carotid endarterectomy (Chronic) "STEPHY 2008" S/P aortic valve replacement (Chronic) "bio prosthetic" S/P cardiac cath (Chronic) "2012 - non obstructive CAD" Family History Mother Hypertension Brother Stroke Social History Preferred Language: Tongan Communication Ability: Effective Marklogic Developer Required: No Beliefs That Will Affect Care: None marital status: Current Living Situation: Spouse Current Living Situation Comment: lives with Vannesa and six dogs in three story home. Feels Safe at Home: Yes Safety Concerns: Feels Safe At This Time Smoking Status: Former smoker Second Hand Exposure: No Hx Alcohol Use: No (history of ETOH - no present use.) Hx Substance Use: No Review of Systems Review of Systems: All systems reviewed & are unremarkable except as noted in HPI & below Constitutional: + fatigue and + weakness Eyes: no worsening vision Respiratory: + cough and + sputum production Cardiovascular: + edema (stable mild chronic); no chest pain and no palpitations Gastrointestinal: as per Subjective / HPI Genitourinary: + problem reported (voids small amount daily; no change in chronic urine habits) Integumentary: no rash and no non-healing lesions Psychiatric: no behavioral changes Physical Exam Constitutional: well developed, well nourished, + obese and cooperative sitting up in chair on ra nad but large coughing fit w/ deep respiration for lung exam Eyes: EOM intact bilaterally ENMT: Ears: no external ear abnormality Nose: no external nose abnormality Mouth: + dry oral mucous membranes Neck: no nuchal rigidity Respiratory: normal respiratory effort and + cough Auscultation: + diminished lung sounds (minimal air mvt bl ) Cardiovascular: Rate/Rhythm: regular rate and regular rhythm Extremities: + edema (pedal) and + AV fistula (+ t/b) Gastrointestinal (Abdomen): Inspection/Auscultation: normal bowel sounds Percussion/Palpation: abdomen soft; abdomen nontender Musculoskeletal: Extremities: strength 5/5 throughout Skin: no rashes, warm and dry Neurologic: uribe, fluent speech, no tremor Psychiatric: A+Ox3, euthymic affect Eye Contact: good eye contact Speech: normal rate/rhythm/volume of speech Results & Data Vital Signs (Past 12 Hours) Vital Signs Temp Pulse Resp BP Pulse Ox 04/18/19 07:53 37.7 C H 106 H 18 93/59 L 93 04/18/19 06:49 103 H 16 91 04/18/19 06:40 36.8 C 04/18/19 06:38 95/53 L 04/18/19 05:42 76/48 L 04/18/19 04:47 38 C H 91/54 L 04/18/19 04:06 38.9 C H 113 H 16 94/62 L 91 Laboratory Results Abnormal lab results 04/17/19 04/17/19 04/17/19 Range/Units 16:50 18:21 21:30 WBC (4.8-10.8) K/uL RBC (4.7-6.1) M/uL Hgb (14.0-18.0) g/dL Hct (42-52) % MCV (80-100) fL MCH (25-34) pg RDW Std Deviation (36.4-46.3) fL RDW Coeff of Elvia (11.5-14.5) % Plt Count (130-400) K/uL MPV (7.4-10.4) fL Immature Gran # (Auto) (0.00-0.02) K/uL Neut # (Auto) (1.4-6.5) K/uL Lymph # (Auto) (1.2-3.4) K/uL Kingsbury # (Auto) (0.11-0.59) K/uL Platelet Estimate (Normal) PT (9.0-12.0) Seconds INR (0.9-1.1) Sodium (136-145) mmol/L Potassium (3.5-5.1) mmol/L Chloride (98-107) mmol/L Anion Gap (3-11) BUN (7-18) mg/dl Creatinine (0.6-1.4) mg/dl BUN/Creatinine Ratio (10-20) Glucose (70-99) mg/dl POC Glucose 186 H (70-99) Hemoglobin A1c (4.5-5.6) % POC Lactic Acid Alvin 1.76 H (0.90-1.70) mmol/L Calcium (8.5-10.1) mg/dl Phosphorus (2.5-4.9) mg/dl Procalcitonin 2.03 H (0-0.5) ng/ml 04/18/19 04/18/19 04/18/19 Range/Units 04:32 04:32 04:32 WBC 15.36 H (4.8-10.8) K/uL RBC 2.76 L (4.7-6.1) M/uL Hgb 10.3 L (14.0-18.0) g/dL Hct 30.6 L (42-52) % MCV 110.9 H (80-100) fL MCH 37.3 H (25-34) pg RDW Std Deviation 59.8 H (36.4-46.3) fL RDW Coeff of Elvia 14.9 H (11.5-14.5) % Plt Count 99 L (130-400) K/uL MPV 12.1 H (7.4-10.4) fL Immature Gran # (Auto) 0.10 H (0.00-0.02) K/uL Neut # (Auto) 13.33 H (1.4-6.5) K/uL Lymph # (Auto) 0.59 L (1.2-3.4) K/uL Kingsbury # (Auto) 1.33 H (0.11-0.59) K/uL Platelet Estimate Decreased L (Normal) PT 28.8 H (9.0-12.0) Seconds INR 3.0 H (0.9-1.1) Sodium 131 L (136-145) mmol/L Potassium 5.5 H (3.5-5.1) mmol/L Chloride 92 L (98-107) mmol/L Anion Gap 15.0 H (3-11) BUN 75 H (7-18) mg/dl Creatinine 9.15 H* D (0.6-1.4) mg/dl BUN/Creatinine Ratio 8.2 L (10-20) Glucose 169 H (70-99) mg/dl POC Glucose (70-99) Hemoglobin A1c (4.5-5.6) % POC Lactic Acid Alvin (0.90-1.70) mmol/L Calcium 7.8 L (8.5-10.1) mg/dl Phosphorus 5.5 H (2.5-4.9) mg/dl Procalcitonin (0-0.5) ng/ml 04/18/19 04/18/19 04/18/19 Range/Units 04:32 07:32 11:28 WBC (4.8-10.8) K/uL RBC (4.7-6.1) M/uL Hgb (14.0-18.0) g/dL Hct (42-52) % MCV (80-100) fL MCH (25-34) pg RDW Std Deviation (36.4-46.3) fL RDW Coeff of Elvia (11.5-14.5) % Plt Count (130-400) K/uL MPV (7.4-10.4) fL Immature Gran # (Auto) (0.00-0.02) K/uL Neut # (Auto) (1.4-6.5) K/uL Lymph # (Auto) (1.2-3.4) K/uL Kingsbury # (Auto) (0.11-0.59) K/uL Platelet Estimate (Normal) PT (9.0-12.0) Seconds INR (0.9-1.1) Sodium (136-145) mmol/L Potassium (3.5-5.1) mmol/L Chloride (98-107) mmol/L Anion Gap (3-11) BUN (7-18) mg/dl Creatinine (0.6-1.4) mg/dl BUN/Creatinine Ratio (10-20) Glucose (70-99) mg/dl POC Glucose 184 H 232 H (70-99) Hemoglobin A1c 7.0 H (4.5-5.6) % POC Lactic Acid Alvin (0.90-1.70) mmol/L Calcium (8.5-10.1) mg/dl Phosphorus (2.5-4.9) mg/dl Procalcitonin (0-0.5) ng/ml 04/18/19 Range/Units 16:39 WBC (4.8-10.8) K/uL RBC (4.7-6.1) M/uL Hgb (14.0-18.0) g/dL Hct (42-52) % MCV (80-100) fL MCH (25-34) pg RDW Std Deviation (36.4-46.3) fL RDW Coeff of Elvia (11.5-14.5) % Plt Count (130-400) K/uL MPV (7.4-10.4) fL Immature Gran # (Auto) (0.00-0.02) K/uL Neut # (Auto) (1.4-6.5) K/uL Lymph # (Auto) (1.2-3.4) K/uL Kingsbury # (Auto) (0.11-0.59) K/uL Platelet Estimate (Normal) PT (9.0-12.0) Seconds INR (0.9-1.1) Sodium (136-145) mmol/L Potassium (3.5-5.1) mmol/L Chloride (98-107) mmol/L Anion Gap (3-11) BUN (7-18) mg/dl Creatinine (0.6-1.4) mg/dl BUN/Creatinine Ratio (10-20) Glucose (70-99) mg/dl POC Glucose 242 H (70-99) Hemoglobin A1c (4.5-5.6) % POC Lactic Acid Alvin (0.90-1.70) mmol/L Calcium (8.5-10.1) mg/dl Phosphorus (2.5-4.9) mg/dl Procalcitonin (0-0.5) ng/ml Diagnostic Findings ct abd/pelvis 1. No evidence of bowel obstruction. No evidence of free air 2. Normal appendix. No evidence of acute diverticulitis 3. 3 cm left renal cyst. Indeterminate 27 mm right renal lesion which cannot be further characterized on this noncontrast study 4. No evidence of hydronephrosis. No ureteral or bladder calculi identified 5. Dense right middle lobe pulmonary consolidation consistent with pneumonia. Small right pleural effusion. Mild subcarinal lymphadenopathy. cxr 1. Cardiomegaly without radiographic evidence of congestive failure. 2. There is dense airspace consolidation at the right lung base with a small right pleural effusion. The appearance is typical for pneumonia/aspiration pneumonitis. Clinical correlation will be required and radiographic follow-up to resolution is recommended. (1) Pneumonia involving right lung Lung location: middle lobe of lung Pneumonia type: due to unspecified organism Qualified Code(s): J18.1 - Lobar pneumonia, unspecified organism
[2019-04-18] MEDS ORDERED: MIDODRINE HCL 2.5 MG TAB PO SCH (13:30)
--- NOTE | 2019-04-18 14:59 | Hospitalist Progress Note ---
Date of Service April 18, 2019 Assessment & Plan (1) Sepsis: (2) Pneumonia involving right lung: Patient is an 84 yr male with H/O ESRD on HD //, T2DM, chronic right-sided CHF, HTN, HLD, nonobstructive CAD, history of bioprosthetic AVR, silica pneumoconiosis, chronic thrombocytopenia, paroxysmal atrial flutter, history of PE on chronic warfarin therapy, history of carotid artery stenosis status post right CEA who presents to [facility] ED secondary to ill feeling x3 to 4 days. Sepsis Healthcare associated pneumonia --CXR:Cardiomegaly without radiographic evidence of congestive failure. There is dense airspace consolidation at the right lung base with a small right pleural effusion. The appearance is typical for pneumonia/aspiration pneumonitis. Clinical correlation will be required and radiographic follow-up to resolution is recommended. --Blood cultures: Pending POC lactic acid 1.76, procalcitonin 2.03 Continue IV Rocephin and Zithromax Day #2 Received IV fluids with caution secondary to ESRD Aggressive pulm toilet with xopenex/ipratropium, incentive spirometry supplemental O2 PRN (3) Accelerated junctional rhythm: Noted on EKG, monitor H/O PAF s/p ablation Currently rate controlled Asymptomatic Consider cardiology evaluation if necessary (4) ESRD (end stage renal disease) on dialysis: Hyperkalemia Patient missed HD on day of admission Appreciate Nephrology Input Dialysis as per nephrology Monitor renal function, electrolytes renal jus and sevelamer (5) Atrial flutter, paroxysmal: H/O ablation on warfarin for full anticoagulation INR therapeutic range Monitor INR: 3.0 Continue Coreg for rate control (6) Type 2 diabetes mellitus: 02/10 A1C 6.8 Diet controlled Monitor Accu-Checks Continue NovoLog sliding scale per protocol (7) HTN (hypertension): Blood pressure relatively low Likely due to chronic hypotension Continue Midodrine (8) Dyslipidemia: heart healthy diet, omega -3 Not on statin (9) 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: Hb stable monitor cbc (10) GERD (gastroesophageal reflux disease): continue PPI (11) Thrombocytopenia: chronic thrombocytopenia Monitor platelets (12) Thrush, oral: Continue nystatin (13) DVT prophylaxis: On Coumadin SCD/TEDS Subjective Patient seen and examined at bedside Feels a lot better today Less cough, shortness of breath today Plan for hemodialysis today Denies any chest pain, dizziness, nausea, abdominal pain Offers no other complaints Review of Systems Review of Systems: All systems reviewed & are unremarkable except as noted in HPI & below Physical Exam Physical Exam: Physical Exam: Vitals signs as noted above General Appearance:Moderately built and nourished, no apparent distress Head: normocephalic, Atraumatic Eyes: normal inspection, EOMI Neck: supple, Trachea midline Respiratory/Chest: Decreased breath sounds at bases, CTA Cardiovascular: S1, S2, +Systolic murmur Abdomen/GI:Soft, Non tender, Bowel sounds present Extremities/Musculoskelatal:normal inspection, + Pedal edema Neurologic/Psych:AAOX3, grossly no focal neurological deficits Skin: normal color, warm Results & Data Vital Signs (Past 12 Hours) Vital Signs Temp Pulse Resp BP Pulse Ox 04/18/19 13:59 71 18 93 04/18/19 12:29 91 04/18/19 07:53 37.7 C H 106 H 18 93/59 L 93 04/18/19 06:49 103 H 16 91 04/18/19 06:40 36.8 C 04/18/19 06:38 95/53 L 04/18/19 05:42 76/48 L 04/18/19 04:47 38 C H 91/54 L 04/18/19 04:06 38.9 C H 113 H 16 94/62 L 91 Laboratory Results Short CBC 04/17/19 04/18/19 Range/Units 16:50 04:32 WBC 16.48 H 15.36 H (4.8-10.8) K/uL Hgb 11.3 L 10.3 L (14.0-18.0) g/dL Hct 34.2 L 30.6 L (42-52) % Plt Count 105 L 99 L (130-400) K/uL BMP 04/17/19 04/18/19 16:50 04:32 Sodium 131 L 131 L Potassium 5.2 H 5.5 H Chloride 92 L 92 L Carbon Dioxide 24 24 BUN 68 H 75 H Creatinine 8.80 H* 9.15 H* D Glucose 169 H 169 H Calcium 8.9 7.8 L Liver Function 04/17/19 Range/Units 16:50 Total Bilirubin 0.7 (0.2-1) mg/dl AST 30 (15-37) U/L ALT 23 (12-78) U/L Alkaline Phosphatase 102 (45-117) U/L Albumin 2.9 L (3.4-5.0) gm/dl (1) Sepsis Sepsis type: sepsis due to unspecified organism Qualified Code(s): A41.9 - Sepsis, unspecified organism (2) Pneumonia involving right lung Lung location: middle lobe of lung Pneumonia type: due to unspecified organism Qualified Code(s): J18.1 - Lobar pneumonia, unspecified organism
[2019-04-18 15:03] LABS: Hepatitis B Surface Antigen Neg (Neg)
[2019-04-18 15:12] LABS: Hepatitis B Surface Antibody Immune
[2019-04-18] MEDS ORDERED: WARFARIN SOD 2.5 MG TAB PO SCH (16:00)
[2019-04-18] MEDS: HEPARIN SOD (PORCINE) 1000 UNIT/ML 10 ML VIAL IV SCH (21:05)
[2019-04-19] MEDS: HYDROCORTISONE SOD 100 MG in SYRINGE 0 ML IV SCH ×2 (01:17→04:57)
[2019-04-19] MEDS: LEVALBUTEROL HCL 0.63 MG/3 ML NEB NEB SCH ×7 (01:32→19:25)
[2019-04-19] MEDS: IPRATROPIUM BROMIDE NEB SOLN 0.02% 2.5 ML VIAL INH SCH ×7 (01:32→19:25)
[2019-04-19] MEDS: PIPERACILLIN/TAZOBACTAM 4.5 GM in DEXTROSE 5% 100 ML IV SCH ×2 (04:56→18:55)
[2019-04-19 06:09] LABS: Hematocrit (blood only) 29.3 % (42-52); Hemoglobin 9.7 g/dL (14.0-18.0); Mean Corpuscular Hgb Conc 33.1 g/dL (32-36); Mean Platelet Volume 12.7 fL (7.4-10.4); Platelet Count 104 K/uL (130-400); RDW Coefficient of Variation 14.7 % (11.5-14.5); RDW Standard Deviation 59.5 fL (36.4-46.3); Red Blood Count 2.64 M/uL (4.7-6.1); White Blood Count 15.37 K/uL (4.8-10.8)
[2019-04-19 06:18] LABS: Prothrombin Time 33.3 Seconds (9.0-12.0)
[2019-04-19 06:20] LABS: INR 3.6 (0.9-1.1)
[2019-04-19 06:47] LABS: BUN Creatinine Ratio 7.8 (10-20); Calcium 7.8 mg/dl (8.5-10.1); Creatinine Clr Calc Pharmacy 10.6 ml/min; Est GFR (African American) 9.7; Est GFR (Non-African American) 8.4; Potassium 4.3 mmol/L (3.5-5.1)
[2019-04-19] MEDS ORDERED: SODIUM CHLORIDE 0.9% 1000ML 1,000 ML IV PRN (07:00)
[2019-04-19] MEDS ORDERED: HEPARIN SOD (PORCINE) 1000 UNIT/ML 10 ML VIAL IV SCH (07:00)
[2019-04-19] MEDS ORDERED: EPOETIN ALFA 10,000 UNITS/ML VIAL IV SCH (07:00)
[2019-04-19] MEDS: INSULIN ASPART 100 UNITS/ML 3 ML PEN SC SCH ×5 (07:48→20:42)
[2019-04-19] MEDS: SEVELAMER HCL 800 MG TABLET PO SCH ×3 (07:48→19:49)
[2019-04-19] MEDS: CARVEDILOL 12.5 MG TAB PO SCH ×2 (07:50→20:38)
[2019-04-19] MEDS: INSULIN GLARGINE SOLOSTAR 100 UNITS/ML 3 ML PEN SC SCH ×3 (07:50→20:40)
[2019-04-19] MEDS: NYSTATIN SUSP 500,000 U/5 ML UDC PO SCH ×4 (07:51→20:38)
[2019-04-19] MEDS: OMEGA-3 (PURIFIED FISH OIL) 1 GM CAP PO SCH (07:52)
[2019-04-19] MEDS: PANTOprazole 40 MG TAB PO SCH (07:52)
[2019-04-19] MEDS: CHOLECALCIFEROL 1,000 UNITS TAB PO SCH (07:53)
[2019-04-19] MEDS: VITAMIN B COMPLEX TAB PO SCH (07:53)
[2019-04-19] MEDS: LACTOBACILLUS ACIDOPHILUS (FLORANEX) TAB PO SCH ×3 (12:08→20:39)
--- NOTE | 2019-04-19 14:31 | Hospitalist Progress Note ---
Date of Service April 19, 2019 Assessment & Plan (1) Sepsis: (2) Pneumonia involving right lung: Patient is an 84 yr male with H/O ESRD on HD //, T2DM, chronic right-sided CHF, HTN, HLD, nonobstructive CAD, history of bioprosthetic AVR, silica pneumoconiosis, chronic thrombocytopenia, paroxysmal atrial flutter, history of PE on chronic warfarin therapy, history of carotid artery stenosis status post right CEA who presents to [facility] ED secondary to ill feeling x3 to 4 days. Sepsis Healthcare associated pneumonia --CXR:Cardiomegaly without radiographic evidence of congestive failure. There is dense airspace consolidation at the right lung base with a small right pleural effusion. The appearance is typical for pneumonia/aspiration pneumonitis. Clinical correlation will be required and radiographic follow-up to resolution is recommended. --Blood cultures: No growth to date POC lactic acid 1.76, procalcitonin 2.03 Continue IV Rocephin and Zithromax Day #3 Received IV fluids with caution secondary to ESRD Aggressive pulm toilet with xopenex/ipratropium, incentive spirometry Taper down steroids supplemental O2 PRN (3) Accelerated junctional rhythm: Noted on EKG, monitor H/O PAF s/p ablation Currently rate controlled Asymptomatic Consider cardiology evaluation if necessary (4) ESRD (end stage renal disease) on dialysis: Hyperkalemia Patient missed HD on day of admission Appreciate Nephrology Input Dialysis as per nephrology Monitor renal function, electrolytes renal jus and sevelamer (5) Atrial flutter, paroxysmal: H/O ablation on warfarin for anticoagulation INR therapeutic range Monitor INR: 3.0>>3.6 Continue Coreg for rate control Hold warfarin today (6) Type 2 diabetes mellitus: 02/10 A1C 6.8 Diet controlled Monitor Accu-Checks Continue NovoLog sliding scale per protocol (7) HTN (hypertension): Blood pressure relatively low Continue current meds (8) Dyslipidemia: heart healthy diet, omega -3 Not on statin (9) 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: Hb stable monitor cbc (10) GERD (gastroesophageal reflux disease): continue PPI (11) Thrombocytopenia: chronic thrombocytopenia Monitor platelets (12) Thrush, oral: Continue nystatin (13) DVT prophylaxis: INR supratherapeutic Coumadin held SCD/TEDS Subjective Patient seen and examined at bedside Plan for routine hemodialysis today Persistent leukocytosis likely secondary to steroids States feeling well today No new complaints Had one episode of loose bowel movements yesterday cough, shortness of breath improving Denies any chest pain, dizziness, nausea, abdominal pain Review of Systems Review of Systems: All systems reviewed & are unremarkable except as noted in HPI & below Physical Exam Physical Exam: Physical Exam: Vitals signs as noted above General Appearance:Moderately built and nourished, no apparent distress Head: normocephalic, Atraumatic Eyes: normal inspection, EOMI Neck: supple, Trachea midline Respiratory/Chest: Decreased breath sounds at bases, CTA Cardiovascular: S1, S2, +Systolic murmur Abdomen/GI:Soft, Non tender, Bowel sounds present Extremities/Musculoskelatal:normal inspection, + Pedal edema Neurologic/Psych:AAOX3, grossly no focal neurological deficits Skin: normal color, warm Results & Data Vital Signs (Past 12 Hours) Vital Signs Temp Pulse Pulse Resp BP Pulse Ox 04/19/19 11:06 36.5 C 69 20 112/57 L 98 04/19/19 11:02 69 16 90 04/19/19 07:56 36.5 C 84 19 112/58 L 96 04/19/19 07:00 72 16 91 04/19/19 04:00 36.4 C L 67 18 106/54 L 93 04/19/19 02:49 36.9 C 93 H 16 107/67 90 Laboratory Results Short CBC 04/19/19 Range/Units 05:27 WBC 15.37 H (4.8-10.8) K/uL Hgb 9.7 L (14.0-18.0) g/dL Hct 29.3 L (42-52) % Plt Count 104 L (130-400) K/uL BMP 04/19/19 05:27 Sodium 135 L Potassium 4.3 D Chloride 95 L Carbon Dioxide 26 BUN 44 H Creatinine 5.69 H* D Glucose 223 H Calcium 7.8 L (1) Sepsis Sepsis type: sepsis due to unspecified organism Qualified Code(s): A41.9 - Sepsis, unspecified organism (2) Pneumonia involving right lung Lung location: middle lobe of lung Pneumonia type: due to unspecified organism Qualified Code(s): J18.1 - Lobar pneumonia, unspecified organism
[2019-04-19] MEDS ORDERED: WARFARIN SOD 5 MG TAB PO SCH (16:00)
[2019-04-19] MEDS: HEPARIN SOD (PORCINE) 1000 UNIT/ML 10 ML VIAL IV SCH ×6 (16:11→16:49)
--- NOTE | 2019-04-19 17:10 | Nephrology Progress Note ---
Date of Service April 19, 2019 Assessment & Plan (1) ESRD (end stage renal disease) on dialysis: HD today 3.5 hrs 3K bath -plan routine HD again on Sunday (2) Accelerated junctional rhythm: will do HD on telemetry (3) Pneumonia involving right lung: Patient on zosyn per primary team. 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 No SOB or pain. Today is his regular dialysis. No leg swelling. he had HD yesterday as well Review of Systems Review of Systems: All systems reviewed & are unremarkable except as noted in HPI & below Physical Exam Physical Exam: General exam: Appears comfortable, no acute distress HEENT: Pupils are equal and reactive to light Neck: No JVD, neck is supple trachea is midline Respiratory system: Clear breath sounds bilaterally. Gastrointestinal: Abdomen is soft, non distended, non tender, bowel sounds are present CVS: Regular rate and rhythm. No murmurs, rubs or gallops Musculoskeletal: No joint or muscle tenderness Extremities: Non tender, no edema, peripheral pulses are present Neuro: Oriented, no tremors, no focal neurological deficits Skin: No rashes Results & Data Vital Signs (Past 12 Hours) Vital Signs Temp Pulse Pulse Resp BP Pulse Ox 04/19/19 16:16 74 18 91 04/19/19 15:10 36.5 C 74 19 96/52 L 92 04/19/19 14:45 37.1 C 65 04/19/19 11:06 36.5 C 69 20 112/57 L 98 04/19/19 11:02 69 16 90 04/19/19 07:56 36.5 C 84 19 112/58 L 96 04/19/19 07:00 72 16 91 Diagnostic Findings Laboratory Results - last 24 hr 04/18/19 04/19/19 04/19/19 23:56 05:27 05:27 WBC RBC Hgb Hct MCV MCH MCHC RDW Std Deviation RDW Coeff of Elvia Plt Count MPV PT 33.3 H INR 3.6 H Sodium 135 L Potassium 4.3 D Chloride 95 L Carbon Dioxide 26 Anion Gap 14.0 H BUN 44 H Creatinine 5.69 H* D Est Cr Clr Drug Dosing 10.6 Est GFR ( Amer) 9.7 Est GFR (Non-Af Amer) 8.4 BUN/Creatinine Ratio 7.8 L Glucose 223 H POC Glucose 128 H Calcium 7.8 L 04/19/19 04/19/19 04/19/19 05:27 07:18 11:17 WBC 15.37 H RBC 2.64 L Hgb 9.7 L Hct 29.3 L MCV 111.0 H MCH 36.7 H MCHC 33.1 RDW Std Deviation 59.5 H RDW Coeff of Elvia 14.7 H Plt Count 104 L MPV 12.7 H PT INR Sodium Potassium Chloride Carbon Dioxide Anion Gap BUN Creatinine Est Cr Clr Drug Dosing Est GFR ( Amer) Est GFR (Non-Af Amer) BUN/Creatinine Ratio Glucose POC Glucose 194 H 259 H Calcium 04/19/19 15:54 WBC RBC Hgb Hct MCV MCH MCHC RDW Std Deviation RDW Coeff of Elvia Plt Count MPV PT INR Sodium Potassium Chloride Carbon Dioxide Anion Gap BUN Creatinine Est Cr Clr Drug Dosing Est GFR ( Amer) Est GFR (Non-Af Amer) BUN/Creatinine Ratio Glucose POC Glucose 172 H Calcium (1) Pneumonia involving right lung Lung location: middle lobe of lung Pneumonia type: due to unspecified organism Qualified Code(s): J18.1 - Lobar pneumonia, unspecified organism
[2019-04-19] MEDS: methylPREDNISolone 40 MG in SYRINGE 0 ML IV SCH (20:39)
[2019-04-19] MEDS ORDERED: IPRATROPIUM BROMIDE NEB SOLN 0.02% 2.5 ML VIAL INH SCH (21:00)
[2019-04-20 06:37] LABS: Hematocrit (blood only) 32.8 % (42-52); Mean Corpuscular Hgb Conc 33.5 g/dL (32-36); Mean Corpuscular Volume 112.3 fL (80-100); Mean Platelet Volume 12.3 fL (7.4-10.4); Platelet Count 135 K/uL (130-400); RDW Coefficient of Variation 14.7 % (11.5-14.5); RDW Standard Deviation 60.2 fL (36.4-46.3); Red Blood Count 2.92 M/uL (4.7-6.1); White Blood Count 15.16 K/uL (4.8-10.8)
[2019-04-20] MEDS: LEVALBUTEROL HCL 0.63 MG/3 ML NEB NEB SCH ×2 (06:52→11:06)
[2019-04-20] MEDS: IPRATROPIUM BROMIDE NEB SOLN 0.02% 2.5 ML VIAL INH SCH ×2 (06:53→11:06)
[2019-04-20 07:31] LABS: BUN Creatinine Ratio 9.6 (10-20); Calcium 8.3 mg/dl (8.5-10.1); Creatinine Clr Calc Pharmacy 12.3 ml/min; Est GFR (African American) 11.6; Potassium 4.2 mmol/L (3.5-5.1)
[2019-04-20] MEDS: NYSTATIN SUSP 500,000 U/5 ML UDC PO SCH ×2 (08:14→11:56)
[2019-04-20] MEDS: methylPREDNISolone 40 MG in SYRINGE 0 ML IV SCH (08:14)
[2019-04-20] MEDS: LACTOBACILLUS ACIDOPHILUS (FLORANEX) TAB PO SCH ×2 (08:14→11:57)
[2019-04-20] MEDS: OMEGA-3 (PURIFIED FISH OIL) 1 GM CAP PO SCH (08:14)
[2019-04-20] MEDS: VITAMIN B COMPLEX TAB PO SCH (08:14)
[2019-04-20] MEDS: PANTOprazole 40 MG TAB PO SCH (08:15)
[2019-04-20] MEDS: SEVELAMER HCL 800 MG TABLET PO SCH ×2 (08:15→11:57)
[2019-04-20] MEDS: CHOLECALCIFEROL 1,000 UNITS TAB PO SCH (08:15)
[2019-04-20] MEDS: INSULIN ASPART 100 UNITS/ML 3 ML PEN SC SCH ×2 (08:15→11:57)
[2019-04-20] MEDS: INSULIN GLARGINE SOLOSTAR 100 UNITS/ML 3 ML PEN SC SCH (08:16)
[2019-04-20] MEDS: CARVEDILOL 12.5 MG TAB PO SCH (08:17)
[2019-04-20] MEDS: PIPERACILLIN/TAZOBACTAM 4.5 GM in DEXTROSE 5% 100 ML IV SCH (08:19)
[2019-04-20 08:29] LABS: INR 3.1 (0.9-1.1); Prothrombin Time 29.7 Seconds (9.0-12.0)
--- NOTE | 2019-04-20 11:03 | Nephrology Progress Note ---
Date of Service April 20, 2019 Assessment & Plan (1) ESRD (end stage renal disease) on dialysis: Patient with ESRD on dialysis Sunday. He tolerated dialysis well yesterday for net UF of 2.5 L. He has no signs of volume overload. -plan routine HD again on Sunday (2) Accelerated junctional rhythm: Heart rate is now controlled. Blood pressure is stable. We will continue gentle ultrafiltration during dialysis to avoid large hemodynamic changes (3) Pneumonia involving right lung: Patient on zosyn per primary team. 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 He is sitting up in the chair. No shortness of breath or pain. He tolerated dialysis well yesterday. He has mild leg edema. He is eager to be discharged home Review of Systems Review of Systems: All systems reviewed & are unremarkable except as noted in HPI & below Physical Exam Physical Exam: General exam: Appears comfortable, no acute distress HEENT: Pupils are equal and reactive to light Neck: No JVD, neck is supple trachea is midline Respiratory system: Clear breath sounds bilaterally. Gastrointestinal: Abdomen is soft, non distended, non tender, bowel sounds are present CVS: Regular rate and rhythm. No murmurs, rubs or gallops Musculoskeletal: No joint or muscle tenderness Extremities: Non tender, 1+ edema, peripheral pulses are present Neuro: Oriented, no tremors, no focal neurological deficits Skin: No rashes Access: AVF Results & Data Vital Signs (Past 12 Hours) Vital Signs Temp Pulse Pulse Pulse Resp BP Pulse Ox 04/20/19 08:00 66 04/20/19 07:00 36.4 C L 78 19 137/68 100 04/20/19 06:54 64 16 90 04/20/19 03:14 36.6 C 74 16 138/76 91 Laboratory Results Laboratory Results - last 24 hr 04/19/19 04/19/19 04/19/19 11:17 15:54 18:46 WBC RBC Hgb Hct MCV MCH MCHC RDW Std Deviation RDW Coeff of Elvia Plt Count MPV PT INR Sodium Potassium Chloride Carbon Dioxide Anion Gap BUN Creatinine Est Cr Clr Drug Dosing Est GFR ( Amer) Est GFR (Non-Af Amer) BUN/Creatinine Ratio Glucose POC Glucose 259 H 172 H 123 H Calcium 04/19/19 04/20/19 04/20/19 20:11 05:55 05:55 WBC 15.16 H RBC 2.92 L Hgb 11.0 L Hct 32.8 L MCV 112.3 H MCH 37.7 H MCHC 33.5 RDW Std Deviation 60.2 H RDW Coeff of Elvia 14.7 H Plt Count 135 MPV 12.3 H PT INR Sodium 135 L Potassium 4.2 Chloride 95 L Carbon Dioxide 29 Anion Gap 11.0 BUN 47 H Creatinine 4.94 H* D Est Cr Clr Drug Dosing 12.3 Est GFR ( Amer) 11.6 Est GFR (Non-Af Amer) 10.0 BUN/Creatinine Ratio 9.6 L Glucose 199 H POC Glucose 153 H Calcium 8.3 L 04/20/19 04/20/19 06:59 08:01 WBC RBC Hgb Hct MCV MCH MCHC RDW Std Deviation RDW Coeff of Elvia Plt Count MPV PT 29.7 H INR 3.1 H Sodium Potassium Chloride Carbon Dioxide Anion Gap BUN Creatinine Est Cr Clr Drug Dosing Est GFR ( Amer) Est GFR (Non-Af Amer) BUN/Creatinine Ratio Glucose POC Glucose 192 H Calcium (1) Pneumonia involving right lung Lung location: middle lobe of lung Pneumonia type: due to unspecified organism Qualified Code(s): J18.1 - Lobar pneumonia, unspecified organism
--- NOTE | 2019-04-20 12:02 | Hospitalist Progress Note ---
Date of Service April 20, 2019 Assessment & Plan (1) Sepsis: (2) Pneumonia involving right lung: Patient is an 84 yr male with H/O ESRD on HD /, T2DM, chronic right-sided CHF, HTN, HLD, nonobstructive CAD, history of bioprosthetic AVR, silica pneumoconiosis, chronic thrombocytopenia, paroxysmal atrial flutter, history of PE on chronic warfarin therapy, history of carotid artery stenosis status post right CEA who presents to [facility] ED secondary to ill feeling x3 to 4 days. Sepsis Healthcare associated pneumonia --CXR:Cardiomegaly without radiographic evidence of congestive failure. There is dense airspace consolidation at the right lung base with a small right pleural effusion. The appearance is typical for pneumonia/aspiration pneumonitis. Clinical correlation will be required and radiographic follow-up to resolution is recommended. --Blood cultures: No growth to date lactic acid 1.5, procalcitonin 2.03 Continue IV Zosyn Day #4 Received IV fluids with caution secondary to ESRD Aggressive pulm toilet with xopenex/ipratropium, incentive spirometry Discontinue steroids supplemental O2 PRN Will Transition to Augmentin and renally dose to complete antibiotic course (3) Accelerated junctional rhythm: Noted on EKG, monitor H/O PAF s/p ablation Currently rate controlled Asymptomatic on Coreg (4) ESRD (end stage renal disease) on dialysis: Hyperkalemia Patient missed HD on day of admission Appreciate Nephrology Input Dialysis as per nephrology Monitor renal function, electrolytes renal jus and sevelamer Left Renal Lesion: Incidentally noted CT scan Further Work up as outpatient (5) Atrial flutter, paroxysmal: H/O ablation on warfarin for anticoagulation INR therapeutic range Monitor INR: 3.0>>3.6>>3.1 Continue Coreg for rate control Continue to hold warfarin today (6) Type 2 diabetes mellitus: 02/10 A1C 6.8 Diet controlled Monitor Accu-Checks Continue NovoLog sliding scale per protocol (7) HTN (hypertension): Blood pressure Stable Continue current meds (8) Dyslipidemia: heart healthy diet, omega -3 Not on statin (9) 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: Hb stable monitor cbc (10) GERD (gastroesophageal reflux disease): continue PPI (11) Thrombocytopenia: chronic thrombocytopenia Monitor platelets (12) Thrush, oral: Continue nystatin (13) DVT prophylaxis: INR supratherapeutic Coumadin held SCD/TEDS Disposition: PT/OT: Recommends SNF Patient refuses any needs and prefers to be discharged home Subjective Patient seen and examined at bedside Doing much better today Eager to get discharged Cough much improved No new complaints Denies any chest pain, SOB, dizziness, nausea, abdominal pain Review of Systems Review of Systems: All systems reviewed & are unremarkable except as noted in HPI & below Physical Exam Physical Exam: Physical Exam: Vitals signs as noted above General Appearance:Moderately built and nourished, no apparent distress Head: normocephalic, Atraumatic Eyes: normal inspection, EOMI Neck: supple, Trachea midline Respiratory/Chest: Decreased breath sounds at bases, CTA Cardiovascular: S1, S2, +Systolic murmur Abdomen/GI:Soft, Non tender, Bowel sounds present Extremities/Musculoskelatal:normal inspection, + Pedal edema Neurologic/Psych:AAOX3, grossly no focal neurological deficits Skin: normal color, warm Results & Data Vital Signs (Past 12 Hours) Vital Signs Temp Pulse Pulse Pulse Resp BP Pulse Ox 04/20/19 11:06 68 16 94 04/20/19 11:05 36.4 C L 67 18 112/69 94 04/20/19 08:00 66 04/20/19 07:00 36.4 C L 78 19 137/68 100 04/20/19 06:54 64 16 90 04/20/19 03:14 36.6 C 74 16 138/76 91 Laboratory Results Short CBC 04/20/19 Range/Units 05:55 WBC 15.16 H (4.8-10.8) K/uL Hgb 11.0 L (14.0-18.0) g/dL Hct 32.8 L (42-52) % Plt Count 135 (130-400) K/uL BMP 04/20/19 05:55 Sodium 135 L Potassium 4.2 Chloride 95 L Carbon Dioxide 29 BUN 47 H Creatinine 4.94 H* D Glucose 199 H Calcium 8.3 L (1) Sepsis Sepsis type: sepsis due to unspecified organism Qualified Code(s): A41.9 - Sepsis, unspecified organism (2) Pneumonia involving right lung Lung location: middle lobe of lung Pneumonia type: due to unspecified organism Qualified Code(s): J18.1 - Lobar pneumonia, unspecified organism
--- NOTE | 2019-04-20 12:28 | Discharge Summary ---
Date of Service April 20, 2019 Admission HPI Per Admitting Provider This is a 84-year-old male who has a significant past medical history of ESRD on HD //, T2DM, chronic right-sided CHF, HTN, HLD, nonobstructive CAD, history of bioprosthetic AVR, silica pneumoconiosis, chronic thrombocytopenia, paroxysmal atrial flutter, history of PE on chronic warfarin therapy, history of carotid artery stenosis status post right CEA who presents to [facility] ED secondary to ill feeling x3 to 4 days. Daughter and son-in-law are at bedside. He initially presented to ED on 04/15 secondary to ill feeling. He was diagnosed with right lower lobe pneumonia and it was also noted he was going in and out of atrial flutter. Patient ended up being discharged from ED with Omnicef. Patient has been complaining of a moist productive cough of purulent sputum for the past few days, feeling feverish, chills, sweats, increased dyspnea on exertion, diarrhea. "I feel miserable." He feels diarrhea started prior to initiating Omnicef. Daughter feels he has had increased swelling of his lower extremities and feet. He was unable to attend dialysis this morning due to not feeling well. Per daughter he has also been having off-and-on right-sided abdominal discomfort as well as chest pain. Patient was recently hospitalized 03/18 secondary to chest pain. His troponins were unremarkable. Echocardiogram revealed EF 60 to 65% with normal left ventricular systolic function and functioning bioprosthetic AVR. Patient denies any lightheadedness, dizziness, syncope, headache, neck stiffness, chest pain, palpitations, nausea, vomiting, abdominal pain. He produces minimal urine but denies any dysuria, hematuria, increased urgency or frequency. He denies any melena or hematochezia. Overall his appetite has been very poor and overall feels weak. Admission Exam Per Admitting Provider Gen: Elderly, ill and toxic-appearing male, lying in bed, NAD, answers questions appropriate, conversing easily Head: Normocephalic, Atraumatic Eyes: Sclera normal, no conjunctival injection, PERRLA, EOMI ENT: Gross hearing intact, normal pharynx, mucous membranes moist, positive thrush Neck: supple, no adenopathy, No JVD, no bruit, Resp: Clear to auscultation b/l with decreased breath sounds at bases right greater than left, no wheeze, rales, rhonchi. 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 Bilateral venous stasis changes, negative erythema, warmth negative Homans sign, left upper extremity AV fistula Skin: warm, moist, no rash, negative turgor, cap refill < 2sec Neuro: Alert and oriented x 3, speech normal, good mood/affect, cran nerve 2-12 intact grossly : deferred Principal Diagnosis Discharge Information Discharge Diagnosis Sepsis Healthcare associated pneumonia Left Renal Lesion Discharge Goals Decrease discomfort,Improve function,Improve disease control Discharge Activity Limitations Resume your previous activity Discharge Data Allergies Allergy/AdvReac Type Severity Reaction Status Date / Time aspirin Allergy Unknown . Verified 04/17/19 18:16 salicylates Allergy Unknown UNKNOWN Verified 04/17/19 18:16 Consultations 04/17/19 18:44 ED Decision to Admit Stat 04/17/19 19:26 Consult Nephrology Routine Procedures Performed CT ABD: 1. No evidence of bowel obstruction. No evidence of free air 2. Normal appendix. No evidence of acute diverticulitis 3. 3 cm left renal cyst. Indeterminate 27 mm right renal lesion which cannot be further characterized on this noncontrast study 4. No evidence of hydronephrosis. No ureteral or bladder calculi identified 5. Dense right middle lobe pulmonary consolidation consistent with pneumonia. Small right pleural effusion. Mild subcarinal lymphadenopathy. CXR: 1. Cardiomegaly without radiographic evidence of congestive failure. 2. There is dense airspace consolidation at the right lung base with a small right pleural effusion. The appearance is typical for pneumonia/aspiration pneumonitis. Clinical correlation will be required and radiographic follow-up to resolution is recommended. Ordered Studies 04/17/19 17:02 CT abd pelvis wo con Stat Hospital Course (1) Sepsis: (2) Pneumonia involving right lung: Patient is an 84 yr male with H/O ESRD on HD //, T2DM, chronic right-sided CHF, HTN, HLD, nonobstructive CAD, history of bioprosthetic AVR, silica pneumoconiosis, chronic thrombocytopenia, paroxysmal atrial flutter, history of PE on chronic warfarin therapy, history of carotid artery stenosis status post right CEA who presents to [facility] ED secondary to ill feeling x3 to 4 days. Sepsis Healthcare associated pneumonia --CXR:Cardiomegaly without radiographic evidence of congestive failure. There is dense airspace consolidation at the right lung base with a small right pleural effusion. The appearance is typical for pneumonia/aspiration pneumonitis. Clinical correlation will be required and radiographic follow-up to resolution is recommended. --Blood cultures: No growth to date lactic acid 1.5, procalcitonin 2.03 Continue IV Zosyn Day #4 Received IV fluids with caution secondary to ESRD Aggressive pulm toilet with xopenex/ipratropium, incentive spirometry Discontinue steroids supplemental O2 PRN Will Transition to Augmentin and renally dose to complete antibiotic course (3) Accelerated junctional rhythm: Noted on EKG, monitor H/O PAF s/p ablation Currently rate controlled Asymptomatic on Coreg Oral Thrush: Continue Nystatin (4) ESRD (end stage renal disease) on dialysis: Hyperkalemia Patient missed HD on day of admission Appreciate Nephrology Input Dialysis as per nephrology Monitor renal function, electrolytes renal jus and sevelamer Left Renal Lesion: Incidentally noted CT scan Further Work up as outpatient (5) Atrial flutter, paroxysmal: H/O ablation on warfarin for anticoagulation INR therapeutic range Monitor INR: 3.0>>3.6>>3.1 Continue Coreg for rate control Continue to hold warfarin today (6) Type 2 diabetes mellitus: 02/10 A1C 6.8 Diet controlled Monitor Accu-Checks Continue NovoLog sliding scale per protocol (7) HTN (hypertension): Blood pressure Stable Continue current meds (8) Dyslipidemia: heart healthy diet, omega -3 Not on statin (9) 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: Hb stable monitor cbc (10) GERD (gastroesophageal reflux disease): continue PPI (11) Thrombocytopenia: chronic thrombocytopenia Monitor platelets (12) Thrush, oral: Continue nystatin (13) DVT prophylaxis: INR supratherapeutic Coumadin held SCD/TEDS Disposition: PT/OT: Recommends SNF Patient refuses any needs and prefers to be discharged home Total Time Total Time Spent Total Time Spent (In Minutes): 39 minutes Total Time Includes: Examination of the Patient, Discharge Planning, Medication Reconciliation, Communication With Other Providers and Other Discharge Plan Discharge Items Patient Disposition: Home - Home Health Services Reason For Visit: SEPSIS,PNA Discharge Diagnosis: Sepsis Healthcare associated pneumonia Left Renal Lesion Discharge Goals: Decrease discomfort, Improve disease control and Improve function Activity: Resume your previous activity Exercise/Sports: Gradually increase as tolerated Non-emergency contact: Primary Care Provider and Toolroom Clerk Call non-emergency contact if: you have any medication questions, your symptoms worsen, your pain is not controlled, your pain is worsening, your pain is unusual for you, your pain is concerning for you and you have a fever Follow-up/Referrals: Zach Gooden MD [Primary Care Provider] - Diet: Carb Consistent or DM2 and Dialysis Renal Other Ambulatory Orders: Prothrombin Time INR (Routine) Timeframe: 1 Day Location: Determined by Patient Ordered By: Chet Figueroa Provider Instructions: Follow-up with your primary care physician Dr. Craig in 1 week as advised Follow up with Coumadin clinic tomorrow (04/21/19) for dosing of your coumadin as advised Follow-up with your engraver picture in 4 weeks Your PT/INR is 3.1 today 04/20/19). Get repeat PT/INR tomorrow (04/21/19) and follow up with coumadin clinic for further dosing of your Coumadin. Do not take your Coumadin Today Get dialysis as outpatient as scheduled Complete the antibiotic course as prescribed You are noted to have a renal lesion on CT scan. Get further work up as outpatient as per your Toolroom Clerk recommendations. Seek immediate medical attention if your symptoms reoccur or worsen Prescriptions: New nystatin 100,000 unit/mL Suspension 5 ml PO QID 7 Days Qty: 140 RF: 0 Lactobacillus acidoph-L.bulgar [Floranex] 1 million cell Tablet 4 tab PO QIDM 10 Days Qty: 40 RF: 0 amoxicillin-pot clavulanate [Augmentin] 500-125 mg tablet 1 tab PO DAILY Qty: 6 RF: 0 Continued carvedilol [Coreg] 12.5 mg tablet 12.5 mg PO BID RF: 0 acetaminophen [Tylenol Extra Strength] 500 mg Tablet 500 mg PO Q6H PRN (Reason: Pain) RF: 0 warfarin [Coumadin] 5 mg tablet 5 mg PO SUTUTHSA RF: 0 omeprazole 20 mg capsule,delayed release(DR/EC) 20 mg PO DAILY RF: 0 cholecalciferol (vitamin D3) [Vitamin D3] 1,000 unit Capsule 1,000 unit PO DAILY RF: 0 sevelamer carbonate [Renvela] 800 mg tablet 1,600 mg PO DAILYBD RF: 0 Creole-3 350 mg-235 mg- 90 mg-597 mg Capsule,Delayed Release(Dr/Ec) 1 tab PO DAILY RF: 0 warfarin [Coumadin] 5 mg tablet 2.5 mg PO MOWEFR RF: 0 Sherley-Jus 0.8 mg tablet 1 tab PO DAILY RF: 0 fluticasone propionate [Flonase Allergy Relief] 50 mcg/actuation [place],Suspension 1 spray INTRANASAL DAILY PRN (Reason: Nasal Congestion) RF: 0 docusate sodium 100 mg Tablet 100 mg PO BID PRN (Reason: Constipation) RF: 0 sevelamer carbonate [Renvela] 800 mg tablet 800 mg PO DAILYBL RF: 0 lidocaine-prilocaine 2.5-2.5 % cream 1 applic topical UD RF: 0 vitamin B complex Tablet 1 tab PO DAILY RF: 0 sevelamer carbonate 800 mg tablet 800 mg PO DAILYBB RF: 0 ranitidine HCl 150 mg capsule 150 mg PO Q12H PRN (Reason: heartburn) Qty: 30 RF: 0 Discontinued cefdinir 300 mg capsule 300 mg PO BID 10 Days Qty: 18 RF: 0 Stand-Alone Forms: [facility]/Other Patient Handouts: Nystatin Oral suspension, Digestive Enzymes Oral capsule, Amoxicillin Trihydrate Clavulanate Potassium Oral tablet Discharge Orders: Discharge Order (Routine); Ordered 04/20/19 Ordered By: Chet Barnes Admission Data Admit Date/Time: 04/17/19 19:26 Attending Provider: hCet Barnes Admit Provider: Gerard Lancaster Primary Care Provider: Zach Gooden Other Providers: Bhavana Cason Manabendra Service: Telemetry Other Interventions: Discharge Summary Assessment (RN) Last Done: 04/20/19 13:35 Pending Studies at Discharge: No DC Date/Time DO NOT enter until pt leaves facility: 04/20/19 14:06
[2019-04-20] MEDS ORDERED: WARFARIN SOD 1 MG TAB PO SCH (16:00)
[2019-04-21] MEDS ORDERED: methylPREDNISolone 40 MG in SYRINGE 0 ML IV SCH (09:00)
== END 2019-04-20 14:06 | disposition home or self-care (01) | DRG 871 ==
LOC: ED 16:44 → 2E 19:26

== ENCOUNTER 2019-05-01 03:31 | Inpatient (IN) ==
[2019-05-01] MEDS ORDERED: NITROGLYCERIN SL 0.4 MG/TAB TAB ONE (04:00)
[2019-05-01 04:35] LABS: BUN Creatinine Ratio 6.8 (10-20); Blood Urea Nitrogen 42 mg/dl (7-18); Calcium 8.6 mg/dl (8.5-10.1); Carbon Dioxide 30 mmol/L (21-32); Chloride 95 mmol/L (98-107); Est GFR (African American) 8.7; Est GFR (Non-African American) 7.5; Potassium 4.8 mmol/L (3.5-5.1); Sodium 136 mmol/L (136-145); Troponin I < 0.015 ng/ml (0-0.045)
[2019-05-01 04:36] LABS: INR 1.2 (0.9-1.1); Partial Thromboplastin Ratio 1.4; Partial Thromboplastin Time 38.7 Seconds (21.0-31.0); Prothrombin Time 11.8 Seconds (9.0-12.0)
[2019-05-01 04:44] LABS: Hematocrit (blood only) 31.8 % (42-52); Hemoglobin 10.4 g/dL (14.0-18.0); Mean Corpuscular Hgb Conc 32.7 g/dL (32-36); Mean Corpuscular Volume 113.6 fL (80-100); RDW Coefficient of Variation 15.6 % (11.5-14.5); RDW Standard Deviation 63.3 fL (36.4-46.3); White Blood Count 20.09 K/uL (4.8-10.8)
[2019-05-01 04:50] LABS: Basophils # (auto) 0.03 K/uL (0-0.2); Basophils % (auto) 0.1 %; Eosinophils # (auto) 0.11 K/uL (0-0.5); Eosinophils % (auto) 0.5 %; Giant Platelets 1+; Immature Granulocytes # (auto) 0.14 K/uL (0.00-0.02); Immature Granulocytes % (auto) 0.7 %; Lymphocytes # (auto) 1.04 K/uL (1.2-3.4); Lymphocytes % (auto) 5.2 %; Mean Platelet Volume 12.2 fL (7.4-10.4); Monocytes # (auto) 1.71 K/uL (0.11-0.59); Monocytes % (auto) 8.5 %; Neutrophils # (auto) 17.06 K/uL (1.4-6.5); Platelet Count 133 K/uL (130-400)
--- NOTE | 2019-05-01 05:23 | Emergency Department Note ---
Entered by Josy Peter acting as a scribe for ED Provider Note Name: Luis Davey Age: 84 M Arrives Via: EMS Informant: EMS, Patient CC: Chest pain HPI: The patient is an 84 year old male who presents to the Emergency Department via EMS complaining of sudden chest pain starting less than 1 hour ago. EMS reports that the patient woke up from his sleep with chest pain. They explain that the patient reports that his chest pain radiates to his left arm/shoulder. They state that the patient was in the [facility] ED about 1 week ago and was admitted for pneumonia. They note that he received dialysis 1 day ago and is supposed to get dialyzed again today. They add that the patients home health nurse began to blow up a blood pressure cuff near the patients shunt yesterday and that the patient had to stop her. EMS reports that they gave the patient Zofran 4 mg and Morphine [employer] and that this improved the patients chest pain. The patient reports that he has constant chest pain. He states that he awoke from his sleep with this pain and that he was not able to walk after the onset of this pain. He explains that his lower extremities are swollen but that they are not more swollen than usual. He notes that nothing makes his chest pain better or worse. The patient denies abdominal pain, shortness of breath, nausea, vomiting, headache and history of PR. ROS: See above HPI for pertinent positives & negatives. A total of 10 systems reviewed and were otherwise negative. Past Medical History: GERD, ESRD, HTN, DM, PE, DVT, Atrial flutter Past Surgical History: Aortic valve replacement, Total hip replacement, Removal of testicle, Hydrocelectomy, Carotid endarterectomy, Cardiac catheterization, Super vena cava filter replacement. Family History: HTN, Stroke. Social History: . Lives with spouse. Feels safe at home. Home Medications: See home medications list. Allergies Aspirin, Salicylates. Physical: Vitals: BP: 117/57, Pulse: 79, Respirations: 18, Temperature: 99, O2 Saturation: Nasal Cannula, Delivery: 3 L/min. Exam: GENERAL: Patient is elderly, chronically unwell appearing and in moderate distress. EYES: No scleral icterus, unremarkable pupils. ENT: Mucous membranes moist, no nasal congestion. NECK: No masses appreciated, no meningismus, trachea is midline. RESPIRATORY: No dyspnea. Clear to auscultation and equal bilaterally. Diffuse crackles all lung razo. CARDIOVASCULAR: Regular rate and rhythm. No murmurs, rubs, gallops appreciated. GASTROINTESTINAL: Abdomen soft, non-tender, no peritonitis. Bowel sounds positive. No masses appreciated. BACK: No midline tenderness, no CVA tenderness EXTREMITIES: Normal motion all extremities, no cyanosis. Pain with palpation of anterior left shoulder. Pain with ROM of left shoulder which is new. No bruising or swelling noted. Fistula of left upper arm with good thrill. 4+ pitting edema bilateral lower legs. NEUROLOGIC: Alert and oriented, no acute motor or sensory deficits, no focal weakness, cranial nerves grossly intact. SKIN: No rash, no jaundice, no diaphoresis. ED Course: 033: Prior Medical Record, Triage/Nursing Notes, Medications, Allergies reviewed by Me. The patient was evaluated in room B2, and a complete history and physical examination were performed. 0401: The nurse reported that the patients oxygen saturation decreased to 87% on room air. He stated that he then put the patient on supplemental oxygen 2L nasal cannula. 0412: I reevaluated the patient at this time who reports that this chest pain is better but that his left shoulder pain has worsened. He states that he cant move his left shoulder. 0450: I reevaluated the patient at this time who reports continued left anterior shoulder pain that is worse with movement. 0454: I discussed the patients case with Dr. Diana Hurst hospitalist. He will evaluate the patient for further management. Vital Signs: reviewed and remarkable for hypoxia with laying back Labs: Reviewed and remarkable for elevated wbc Interventions: saline lock, slntg, nc O2 Imaging: X ray results are stated below per my interpretation: Chest: 1 view: increasing congestive findings from previous CXR EKG: Per My Interpretation: Indication Left Chest Pain: Sinus with 1st av bl ock, no ectopy nor ischemia, qtc 420. Similar to previous EKG 04/18/19 Blood pressure: Normal. No Referral necessary Disposition: Hospitalization Differentials: Differential: Cardiac Ischemia (STEMI, NSTEMI, Unstable Angina, etc), Aortic Dissection, Arrhythmia, Pulmonary Embolism, Pneumonia, Pneumo thorax, MSK, Infectious, Pericarditis/Myocarditis, Esophageal Rupture and Gastrointestinal amongst other pathologies entertained. Medical Decision Makin yr old unwell male on dialysis with worsening left chest pain over the last few hours. This very much seems consistent with musculoskeletal as normal trop and unchanged EKG, and with movement of shoulder/palpitation of left chest he winces in pain. He does have limited motion of left shoulder. He is afebrile and initial BPs OK without tachycardia. WBC was quite elevated to 20. Cultures obtained as well as lactate. Abx held as no clear source of infection at this time. His shoulder hurts him but there is no swelling, no erythema, and at this time I can do passive ROM of shoulder without too much discomfort thus seems unlikely septic joint at this time. He is anticoagulated thus I feel PE unlikely. Not consistent with dissection either. Noted however is that even after morphine clearly no longer in system he is hypoxic on room air. With CXR findings and exam he is still quite fluid overloaded. I discussed with hospitalists who will bring in for further management/evaluation. Given bleeding history starting anticoagulation would be contraindicated without further clear evidence acs, and he is allergic to aspirin. Impression: Hypoxia, Acute CHF, Left-sided chest pain, Leukocytosis The scribe's documentation has been prepared under my direction and personally reviewed by me in its entirety. I confirm that the note above accurately reflects all work, treatment, procedures, and medical decision making performed by me. 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) "01/27/09, OD " Atrial flutter (Chronic) Anemia (Chronic) Surgical History S/P ablation of atrial flutter (Chronic) History of total hip replacement (Chronic) History of hydrocelectomy (Chronic) H/O superior vena cava filter placement (Chronic) H/O removal of testicle (Chronic) H/O carotid endarterectomy (Chronic) "STEPHY 2008" S/P aortic valve replacement (Chronic) "bio prosthetic" S/P cardiac cath (Chronic) "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 Feels Safe at Home: Yes Smoking Status: Former smoker Second Hand Exposure: No Hx Alcohol Use: No (history of ETOH - no present use.) Hx Substance Use: No Results & Data Vital Signs Vital Signs - 24 hr 05/01/19 04:26 05/01/19 04:35 05/01/19 04:55 Oxygen Flow Rate - Titration 3 Pulse Oximetry Post Tiitration 99 Pulse Rate [Apical] 78 79 Respiratory Rate 16 18 Respiratory Effort / Characteristics Non-Labored Spontaneous Non-Labored Spontaneous Respiratory Depth Normal Normal Respiratory Pattern Regular Regular Blood Pressure [Right Arm] 109/52 L 117/57 L Blood Pressure Mean [Right Arm] 71 77 Blood Pressure Position [Right Arm] Lying Lying Pulse Oximetry 87 L 98 99 Oxygen Delivery Method Room Air Nasal Cannula Nasal Cannula Nasal Cannula Oxygen Flow Rate 0 3 3 05/01/19 05:10 05/01/19 05:41 05/01/19 06:12 Oxygen Flow Rate - Titration Pulse Oximetry Post Tiitration Pulse Rate [Apical] 78 74 74 Respiratory Rate 17 16 14 Respiratory Effort / Characteristics Non-Labored Spontaneous Non-Labored Spontaneous Non-Labored Spontaneous Respiratory Depth Normal Normal Respiratory Pattern Regular Regular Blood Pressure [Right Arm] 118/64 121/62 Blood Pressure Mean [Right Arm] 82 81 Blood Pressure Position [Right Arm] Lying Lying Pulse Oximetry 99 99 97 Oxygen Delivery Method Nasal Cannula Nasal Cannula Nasal Cannula Oxygen Flow Rate 3 3.5 3 Home Medications Current Medication List: was personally reviewed by me Laboratory Data Attestation: I reviewed the patient's lab results. Result diagrams: 05/01/19 03:00 05/01/19 03:00 Lab Results 05/01/19 05/01/19 05/01/19 Range/Units 03:00 03:00 03:00 WBC 20.09 H (4.8-10.8) K/uL RBC 2.80 L (4.7-6.1) M/uL Hgb 10.4 L (14.0-18.0) g/dL Hct 31.8 L (42-52) % MCV 113.6 H (80-100) fL MCH 37.1 H (25-34) pg MCHC 32.7 (32-36) g/dL RDW Std Deviation 63.3 H (36.4-46.3) fL RDW Coeff of Elvia 15.6 H (11.5-14.5) % Plt Count 133 (130-400) K/uL MPV 12.2 H (7.4-10.4) fL Immature Gran % (Auto) 0.7 % Neut % (Auto) 85.0 % Lymph % (Auto) 5.2 % Bates % (Auto) 8.5 % Eos % (Auto) 0.5 % Baso % (Auto) 0.1 % Immature Gran # (Auto) 0.14 H (0.00-0.02) K/uL Neut # (Auto) 17.06 H (1.4-6.5) K/uL Lymph # (Auto) 1.04 L (1.2-3.4) K/uL Bates # (Auto) 1.71 H (0.11-0.59) K/uL Eos # (Auto) 0.11 (0-0.5) K/uL Baso # (Auto) 0.03 (0-0.2) K/uL Giant Platelets 1+ PT 11.8 (9.0-12.0) Seconds INR 1.2 H (0.9-1.1) APTT 38.7 H (21.0-31.0) Seconds PTT Ratio 1.4 ABG pH (7.35-7.45) ABG pCO2 (35-46) mmHg ABG pO2 (80-95) mm/Hg ABG HCO3 (19-24) mmol/L ABG O2 Saturation (90-95) % ABG Base Excess (-9-1.8) mEq/L [place] Test (Pos) Barometric Pressure mm/Hg Oxygen Given Sodium 136 (136-145) mmol/L Potassium 4.8 (3.5-5.1) mmol/L Chloride 95 L (98-107) mmol/L Carbon Dioxide 30 (21-32) mmol/L Anion Gap 11.0 (3-11) BUN 42 H (7-18) mg/dl Creatinine 6.27 H* (0.6-1.4) mg/dl Est Cr Clr Drug Dosing Not Reportable Est GFR ( Amer) 8.7 Est GFR (Non-Af Amer) 7.5 BUN/Creatinine Ratio 6.8 L (10-20) Glucose 183 H (70-99) mg/dl Lactate (0.4-2.0) mmol/L Calcium 8.6 (8.5-10.1) mg/dl Magnesium 1.9 (1.8-2.4) mg/dl Total Bilirubin 0.6 (0.2-1) mg/dl Direct Bilirubin 0.2 (0-0.2) mg/dl AST 17 (15-37) U/L ALT 27 (12-78) U/L Alkaline Phosphatase 126 H (45-117) U/L Troponin I < 0.015 (0-0.045) ng/ml Total Protein 8.3 H (6.4-8.2) gm/dl Albumin 2.7 L (3.4-5.0) gm/dl Lipase 284 (73-393) U/L 05/01/19 05/01/19 Range/Units 05:16 05:54 WBC (4.8-10.8) K/uL RBC (4.7-6.1) M/uL Hgb (14.0-18.0) g/dL Hct (42-52) % MCV (80-100) fL MCH (25-34) pg MCHC (32-36) g/dL RDW Std Deviation (36.4-46.3) fL RDW Coeff of Elvia (11.5-14.5) % Plt Count (130-400) K/uL MPV (7.4-10.4) fL Immature Gran % (Auto) % Neut % (Auto) % Lymph % (Auto) % Bates % (Auto) % Eos % (Auto) % Baso % (Auto) % Immature Gran # (Auto) (0.00-0.02) K/uL Neut # (Auto) (1.4-6.5) K/uL Lymph # (Auto) (1.2-3.4) K/uL Bates # (Auto) (0.11-0.59) K/uL Eos # (Auto) (0-0.5) K/uL Baso # (Auto) (0-0.2) K/uL Giant Platelets PT (9.0-12.0) Seconds INR (0.9-1.1) APTT (21.0-31.0) Seconds PTT Ratio ABG pH 7.45 (7.35-7.45) ABG pCO2 44 (35-46) mmHg ABG pO2 117 H (80-95) mm/Hg ABG HCO3 30 H (19-24) mmol/L ABG O2 Saturation 96.5 H (90-95) % ABG Base Excess 5.1 H (-9-1.8) mEq/L [place] Test Pos (Pos) Barometric Pressure 734.4 mm/Hg Oxygen Given 3L Sodium (136-145) mmol/L Potassium (3.5-5.1) mmol/L Chloride (98-107) mmol/L Carbon Dioxide (21-32) mmol/L Anion Gap (3-11) BUN (7-18) mg/dl Creatinine (0.6-1.4) mg/dl Est Cr Clr Drug Dosing Est GFR ( Amer) Est GFR (Non-Af Amer) BUN/Creatinine Ratio (10-20) Glucose (70-99) mg/dl Lactate 1.3 (0.4-2.0) mmol/L Calcium (8.5-10.1) mg/dl Magnesium (1.8-2.4) mg/dl Total Bilirubin (0.2-1) mg/dl Direct Bilirubin (0-0.2) mg/dl AST (15-37) U/L ALT (12-78) U/L Alkaline Phosphatase (45-117) U/L Troponin I (0-0.045) ng/ml Total Protein (6.4-8.2) gm/dl Albumin (3.4-5.0) gm/dl Lipase (73-393) U/L Administered Medications Discontinued Medications Albuterol (Duoneb) 3 ml NEB NOW STA Stop: 05/01/19 05:30 Last Admin: 05/01/19 05:41 Dose: 3 ml Documented by: [id number] Imaging Data Attestation: I personally reviewed and interpreted this imaging study as follows: ECG Data Attestation: I personally reviewed and interpreted this ECG as follows: Blood Pressure Blood Pressure Findings: Low blood pressure Blood Pressure Disposition: further management by hospitalist Discharge Plan Visit Data Chief Complaint: Chest Pain ED Provider: Kian Jordan Discharge Problem: Hypoxia, Acute CHF, Left-sided chest pain, Leukocytosis Patient Disposition: Being Evaluated by Hospitalist Forms Stand Alone Forms: My [facility] Prescriptions Prescriptions: No Action carvedilol [Coreg] 12.5 mg tablet 12.5 mg PO BID RF: 0 acetaminophen [Tylenol Extra Strength] 500 mg Tablet 500 mg PO Q6H PRN (Reason: Pain) RF: 0 warfarin [Coumadin] 5 mg tablet 5 mg PO SUTUTHSA RF: 0 omeprazole 20 mg capsule,delayed release(DR/EC) 20 mg PO DAILY RF: 0 cholecalciferol (vitamin D3) [Vitamin D3] 1,000 unit Capsule 1,000 unit PO DAILY RF: 0 sevelamer carbonate [Renvela] 800 mg tablet 1,600 mg PO DAILYBD RF: 0 [place]-3 350 mg-235 mg- 90 mg-597 mg Capsule,Delayed Release(Dr/Ec) 1 tab PO DAILY RF: 0 warfarin [Coumadin] 5 mg tablet 2.5 mg PO MOWEFR RF: 0 Sherley-Neeraj 0.8 mg tablet 1 tab PO DAILY RF: 0 fluticasone propionate [Flonase Allergy Relief] 50 mcg/actuation [place],Suspension 1 spray INTRANASAL DAILY PRN (Reason: Nasal Congestion) RF: 0 docusate sodium 100 mg Tablet 100 mg PO BID PRN (Reason: Constipation) RF: 0 sevelamer carbonate [Renvela] 800 mg tablet 800 mg PO DAILYBL RF: 0 lidocaine-prilocaine 2.5-2.5 % cream 1 applic topical UD RF: 0 vitamin B complex Tablet 1 tab PO DAILY RF: 0 sevelamer carbonate 800 mg tablet 800 mg PO DAILYBB RF: 0 ranitidine HCl 150 mg capsule 150 mg PO Q12H PRN (Reason: heartburn) Qty: 30 RF: 0 Referrals Referrals: Zach Gooden MD [Primary Care Provider] - Discharge Problem: Acute CHF Qualifiers: Heart failure type: unspecified Qualified Code(s): I50.9 - Heart failure, unspecified Leukocytosis Qualifiers: Leukocytosis type: unspecified Qualified Code(s): D72.829 - Elevated white blood cell count, unspecified The scribe's documentation has been prepared under my direction and personally reviewed by me in its entirety. I confirm that the note above accurately reflects all work, treatment, procedures, and medical decision making performed by me.
[2019-05-01] MEDS ORDERED: ALBUT/IPRATROP 3MG/0.5MG NEB 3 ML VIAL NEB STA (05:29)
[2019-05-01] MEDS ORDERED: FUROSEMIDE 100 MG in SYRINGE 0 ML IV ONE (06:01)
--- NOTE | 2019-05-01 06:01 | History & Physical Report ---
Date of Service May 01, 2019 Assessment & Plan (1) Acute hypoxemic respiratory failure: Secondary to pulmonary congestion, missed dialysis secondary to recent diarrheal illness Rule out pneumonia Rule out recurrent PE, hx PE/DVT, INR subtherapeutic chronic right-sided heart failure as per records (EF 60-65%, TTE 2019) ESRD on HD Some congestion noted on x-ray Left-sided chest pain Definite musculoskeletal component given direct reproducibility Rule out recurrent PE given subtherapeutic INR hx non-occlusive CAD AFlutter sp ablation, patient NSR hx AVR PVD sp surgery HTN, stable DM2, diet-controlled, well-controlled as of recent inpatient hemoglobin A1c of 7 last March 2019 chronic anemia secondary to ESRD, hemoglobin at baseline Medical telemetry Supplemental O2 Baseline ABG Lasix dosed for renal function, stat neb Nephrology consult RE dialysis management CT chest RE hypoxemia, cough Further management pending CT chest results. ISS BG goal 1 40-1 80 DVT prophylaxis. IV Heparin-Coumadin bridge; goal INR between 2 and 3 Full code History of Present Illness Chief Complaint: Chest pain Primary Care Provider: Zach Gooden MD History obtained from patient and records. 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 Recent confinement 2 weeks ago for sepsis secondary to pneumonia. 2 days ago patient noted to have loose stools at home, nonbloody. No unusual abdominal pain. Patient had to miss a dialysis session secondary to weakness. Outpatient stool C. difficile was negative. Diarrheal illness currently improving as per patient. Patient roused from sleep this morning with achy left-sided chest pain going to the shoulder, somewhat worse with motion. Little short of breath. No unusual cough symptoms. No fever, no chills. No relief with nitroglycerin administration. At the ER, O2 sats noted to be 80s on room air. Patient currently comfortable. 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 Verified 05/01/19 04:33 salicylates Allergy Unknown UNKNOWN Verified 05/01/19 04:33 Home Medications Home Medications Medication Instructions Recorded Confirmed Type [place]-3 1 tab PO DAILY 06/14/18 05/01/19 History acetaminophen [Tylenol Extra 500 mg PO Q6H PRN 06/14/18 05/01/19 History Strength] carvedilol [Coreg] 12.5 mg PO BID 06/14/18 05/01/19 History cholecalciferol (vitamin D3) 1,000 unit PO DAILY 06/14/18 05/01/19 History [Vitamin D3] omeprazole 20 mg PO DAILY 06/14/18 05/01/19 History sevelamer carbonate [Renvela] 1,600 mg PO DAILYBD 06/14/18 05/01/19 History warfarin [Coumadin] 5 mg PO SUTUTHSA 06/14/18 05/01/19 History Sherley-Neeraj 1 tab PO DAILY 03/18/19 05/01/19 History docusate sodium 100 mg PO BID PRN 03/18/19 05/01/19 History fluticasone propionate [Flonase 1 spray INTRANASAL DAILY PRN 03/18/19 05/01/19 History Allergy Relief] lidocaine-prilocaine 1 applic TOPICAL UD 03/18/19 05/01/19 History sevelamer carbonate 800 mg PO DAILYBB 03/18/19 05/01/19 History sevelamer carbonate [Renvela] 800 mg PO DAILYBL 03/18/19 05/01/19 History vitamin B complex 1 tab PO DAILY 03/18/19 05/01/19 History warfarin [Coumadin] 2.5 mg PO MOWEFR 03/18/19 05/01/19 History ranitidine HCl 150 mg PO Q12H PRN #30 cap 03/19/19 05/01/19 Rx Past Med/Surg History Medical History GERD (gastroesophageal reflux disease) (Chronic) ESRD (end stage renal disease) on dialysis (Chronic) Dyslipidemia (Chronic) HTN (hypertension) (Chronic) Type 2 diabetes mellitus (Chronic) Pulmonary embolus (Chronic) Aortic valve insufficiency (Chronic) DVT (deep venous thrombosis) (Chronic) " 01/13/09 left leg " 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) "01/27/09, OD " Atrial flutter (Chronic) Anemia (Chronic) Surgical History S/P ablation of atrial flutter (Chronic) History of total hip replacement (Chronic) History of hydrocelectomy (Chronic) H/O superior vena cava filter placement (Chronic) H/O removal of testicle (Chronic) H/O carotid endarterectomy (Chronic) "2008" S/P aortic valve replacement (Chronic) "bio prosthetic" S/P cardiac cath (Chronic) "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" Family History Mother Hypertension Brother Stroke Social History Preferred Language: Telugu Communication Ability: Effective Clinical Data Research Required: No Beliefs That Will Affect Care: None marital status: Current Living Situation: Spouse Current Living Situation Comment: lives with Vannesa and six dogs in three story home. Feels Safe at Home: Yes Safety Concerns: Feels Safe At This Time Smoking Status: Former smoker Second Hand Exposure: No Hx Alcohol Use: Yes (history only; no current use) Hx Substance Use: No Review of Systems Review of Systems: As per HPI, all 10 systems reviewed, all other ROS negative Physical Exam Physical Exam: GENERAL: Comfortable, pleasant, no respiratory distress, obese SKIN: Pallor , warm HEENT: Alopecia, pale palpebral conjunctivae, no ptosis, dry buccal mucosa NECK : Supple, short, no tenderness CHEST : Scattered crackles, left-sided anterior chest wall tenderness tenderness HEART : RRR, systolic murmur ABDOMEN: Some distention, nontender EXTREMITIES : Bilateral LE swelling, no LE tenderness, no other conspicuous deformities noted NEUROLOGIC : Coherent, no facial asymmetry, no other gross focality Results & Data Vital Signs (Past 12 Hours) Vital Signs Pulse Resp BP Pulse Ox 05/01/19 05:41 74 16 99 05/01/19 05:10 78 17 118/64 99 05/01/19 04:55 79 18 117/57 L 99 05/01/19 04:35 78 16 109/52 L 98 05/01/19 04:26 87 L Laboratory Results Laboratory Results WBC 20.09 K/uL (4.8-10.8) H 05/01/19 03:00 RBC 2.80 M/uL (4.7-6.1) L 05/01/19 03:00 Hgb 10.4 g/dL (14.0-18.0) L 05/01/19 03:00 Hct 31.8 % (42-52) L 05/01/19 03:00 MCV 113.6 fL (80-100) H 05/01/19 03:00 MCH 37.1 pg (25-34) H 05/01/19 03:00 MCHC 32.7 g/dL (32-36) 05/01/19 03:00 RDW Std Deviation 63.3 fL (36.4-46.3) H 05/01/19 03:00 RDW Coeff of Elvia 15.6 % (11.5-14.5) H 05/01/19 03:00 Plt Count 133 K/uL (130-400) 05/01/19 03:00 MPV 12.2 fL (7.4-10.4) H 05/01/19 03:00 Immature Gran % (Auto) 0.7 % 05/01/19 03:00 Neut % (Auto) 85.0 % 05/01/19 03:00 Lymph % (Auto) 5.2 % 05/01/19 03:00 [place] % (Auto) 8.5 % 05/01/19 03:00 Eos % (Auto) 0.5 % 05/01/19 03:00 Baso % (Auto) 0.1 % 05/01/19 03:00 Immature Gran # (Auto) 0.14 K/uL (0.00-0.02) H 05/01/19 03:00 Neut # (Auto) 17.06 K/uL (1.4-6.5) H 05/01/19 03:00 Lymph # (Auto) 1.04 K/uL (1.2-3.4) L 05/01/19 03:00 [place] # (Auto) 1.71 K/uL (0.11-0.59) H 05/01/19 03:00 Eos # (Auto) 0.11 K/uL (0-0.5) 05/01/19 03:00 Baso # (Auto) 0.03 K/uL (0-0.2) 05/01/19 03:00 Giant Platelets 1+ 05/01/19 03:00 PT 11.8 Seconds (9.0-12.0) 05/01/19 03:00 INR 1.2 (0.9-1.1) H 05/01/19 03:00 APTT 38.7 Seconds (21.0-31.0) H 05/01/19 03:00 PTT Ratio 1.4 05/01/19 03:00 Sodium 136 mmol/L (136-145) 05/01/19 03:00 Potassium 4.8 mmol/L (3.5-5.1) 05/01/19 03:00 Chloride 95 mmol/L (98-107) L 05/01/19 03:00 Carbon Dioxide 30 mmol/L (21-32) 05/01/19 03:00 Anion Gap 11.0 (3-11) 05/01/19 03:00 BUN 42 mg/dl (7-18) H 05/01/19 03:00 Creatinine 6.27 mg/dl (0.6-1.4) H* 05/01/19 03:00 Est Cr Clr Drug Dosing Not Reportable 05/01/19 03:00 Est GFR ( Amer) 8.7 05/01/19 03:00 Est GFR (Non-Af Amer) 7.5 05/01/19 03:00 BUN/Creatinine Ratio 6.8 (10-20) L 05/01/19 03:00 Glucose 186 mg/dl (70-99) H 05/01/19 03:00 Lactate 1.3 mmol/L (0.4-2.0) 05/01/19 05:16 Calcium 8.6 mg/dl (8.5-10.1) 05/01/19 03:00 Troponin I < 0.015 ng/ml (0-0.045) 05/01/19 03:00 Diagnostic Findings Chest x-ray as per my interpretation cardiomegaly, congestion EKG as per my interpretation (EMS) : Rate 100, NSR, septal T wave flattening.
[2019-05-01 06:11] LABS: Base Excess ABG 5.1 mEq/L (-9-1.8); HCO3 ABG 30 mmol/L (19-24); Oxygen Saturation ABG 96.5 % (90-95); PCO2 ABG 44 mmHg (35-46); PO2 ABG 117 mm/Hg (80-95); pH ABG 7.45 (7.35-7.45)
[2019-05-01 06:13] LABS: Allen Test Pos (Pos)
[2019-05-01 06:14] LABS: Alanine Aminotransferase 27 U/L (12-78); Albumin Level 2.7 gm/dl (3.4-5.0); Alkaline Phosphatase 126 U/L (45-117); Aspartate Aminotransferase 17 U/L (15-37); Bilirubin Direct 0.2 mg/dl (0-0.2); Bilirubin,Total 0.6 mg/dl (0.2-1); Glucose 183 mg/dl (70-99); Magnesium 1.9 mg/dl (1.8-2.4); Total Protein 8.3 gm/dl (6.4-8.2)
[2019-05-01] MEDS ORDERED: OPTIRAY 320 125ml IV PRN (06:39)
[2019-05-01] MEDS ORDERED: WARFARIN SOD 5 MG TAB PO ONE (07:04)
--- NOTE | 2019-05-01 07:04 | XRay Report ---
XR chest 1V portable HISTORY: Left-sided chest pain. COMPARISON: Chest 04/17/2019. FINDINGS: No pneumothorax. No pleural effusions. The heart remains mildly enlarged. There are postste rnotomy changes. Calcified granuloma within the right lung base. Diffuse reticulonodular interstitial thickening. This could represent a chronic inflammatory process or an atypical pneumonitis. This has slightly progressed. Hazy appearance to the right lung base has improved. No new focal lung consolid ations. IMPRESSION: 1. Hazy appearance to the right lung base has improved. This may represent a resolving pneumonia. 2. Cardiomegaly, unchanged. 3. Diffuse reticulonodular interstitial thickening has progressed. This may represent an atypical pne umonitis or chronic inflammatory process. Electronically signed by: Vincent Appiah M.D. 05/01/2019 7:03 AM
--- NOTE | 2019-05-01 07:06 | CT Scan Report ---
CT angio chest PE protocol CT DOSE: 839.67 mGy.cm HISTORY: Chest pain PE, hypoxemia TECHNIQUE: Multiaxial CT images of the chest were performed following the intravenous administration of contrast to evaluate the pulmonary arteries. Maximal intensity projection images were also obtaine d. A dose lowering technique was utilized adhering to the principles of ALARA. COMPARISON STUDY: None. FINDINGS: Atherosclerotic change of the thoracic aorta. Prior median sternotomy and valve replacement . Pulmonary vasculature enhances appropriately. There are no significant filling defects. There are small bilateral pleural effusions. There are findings of bibasilar atelectatic change. Prominent pulmonary vasculature as well as parenchymal markings are identified bilaterally. IMPRESSION: 1. No evidence of pulmonary embolus.. 2. Components of congestive failure with small bilateral pleural effusions. The above report was generated using voice recognition software. It may contain grammatical, syntax or spelling errors. Electronically signed by: Nathan Disla M.D. 05/01/2019 7:04 AM
[2019-05-01] MEDS ORDERED: HYDROmorphone INJ 0.5 MG/0.5 ML SYR IV PRN (07:44)
[2019-05-01] MEDS ORDERED: PROMETHAZINE HCL 12.5 MG in SODIUM CHLORIDE 0.9% 50 ML IV PRN (07:44)
[2019-05-01] MEDS ORDERED: GLUCAGON FOR INJ 1 MG VIAL SQ PRN (07:44)
[2019-05-01] MEDS ORDERED: ACETAMINOPHEN 325 MG TAB PO PRN (07:44)
[2019-05-01] MEDS ORDERED: GLUCOSE 10 TABS/TUBE PO PRN (07:44)
[2019-05-01] MEDS ORDERED: GLUCOSE 40% GEL 15 GM TUBE PO PRN (07:44)
[2019-05-01] MEDS ORDERED: CARBOHYDRATES FOR HYPOGLYCEMIA PO PRN (07:44)
[2019-05-01] MEDS ORDERED: DEXTROSE 50% 50 ML SYRINGE IV PRN (07:44)
[2019-05-01] MEDS ORDERED: DOCUSATE SODIUM 100 MG CAP PO PRN (07:44)
[2019-05-01] MEDS: Heparin Adult STANDARD Wt-Based Dextrose 5% 25,000 units/500 mL IV SCH (08:07)
[2019-05-01] MEDS: CARVEDILOL 12.5 MG TAB PO SCH ×2 (08:57→21:29)
[2019-05-01] MEDS: VITAMIN B COMPLEX TAB PO SCH (08:57)
[2019-05-01] MEDS: CHOLECALCIFEROL 1,000 UNITS TAB PO SCH (08:58)
[2019-05-01] MEDS: PANTOprazole 40 MG TAB PO SCH (08:58)
[2019-05-01] MEDS: SEVELAMER HCL 800 MG TABLET PO SCH ×3 (08:59→17:09)
[2019-05-01] MEDS ORDERED: NON-FORMULARY MEDICATION (Vitamin B Complex 1 TAB) PO SCH (09:00)
[2019-05-01] MEDS: INSULIN ASPART 100 UNITS/ML 3 ML PEN SC SCH ×4 (09:01→21:28)
--- NOTE | 2019-05-01 10:08 | Nephrology Consultation ---
Date of Consultation May 01, 2019 Assessment & Plan (1) ESRD (end stage renal disease) on dialysis: HD today w/ goal 2.5L UF as tolerated. given still evolving clinical assessment will dialyze bedside. he does not look floridly volume overloaded though he certainly has some fluid on board on his CT chest. will dialyze again tomorrow shorter tx to try to improve volume status. his L chest pain is of unclear cuase at this time >> ? multiple etiologies; leukocytosis and hypoxia are noteworthy and not expected with strictly musculoskeletal complaint. 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: 4K units epo w/ HD Present on Admission?: Yes (3) Leukocytosis: per primary service f/u pending cxs Present on Admission?: Yes (4) Renal lesion: noted at previous admission past 6 wks >> for OP f/u Present on Admission?: Yes History of Present Illness Reason for Consultation: esrd on hd Requesting Physician: Dr Alonso Attending Physician: Janice Dockery, DO History of Present Illness 84 y/o M whom I'm asked to see for dialysis care after he was admitted overnight with acute respiratory failure w/ recurrent L chest and L shoulder pain and hypoxia after recent stay here for pneumonia and accelerated junctional heart rhythms. He had a 20K WBC count on presentation and sats in high 80s on ra. chest CT did show some elements suggestive of mild volume overload. He did miss hd on 04/29 d/t diarrhea; however he made up that missed tx on 04/30 w/ 2.5 L UF, coming off at his normal target wt. PMH includes HD on TRSat HD, paroxysmal a flutter s/p ablation, s/p bioprosthetic AVR, nonocclusive CAD, chronic R HF, hx of PE on chronic warfarin, hx of carotid stenosis s/p R CEA, DM, obesity, HL, chronic anemia / thrombocytopenia. He dialyses under my care at [facility] using AVF . He has been having stuttering GI issues for about the past month in addition to the sepsis admission here for PNA from 04/17 -04/20. he was also obs'd here overnight in March for chest pain deemed noncardiac. Cardiology did follow closely as OP however and he had stress testing and a heart monitor since d/c in March. Currently he has ongoing L lateral chest pain starting at his L shoulder and radiating toward his L nipple. Started about 2029, worsened 2230; left for ER 2330. CP not a/w cough, sob, wheeze, n/v/malaise, palpitations, diaphoresis, focal numbness or weakness. No f/c recently. Allergies Allergy/AdvReac Type Severity Reaction Status Date / Time aspirin Allergy Unknown . Verified 05/01/19 04:33 salicylates Allergy Unknown UNKNOWN Verified 05/01/19 04:33 Home Medications Home Medications Medication Instructions Recorded Confirmed Type [place]-3 1 tab PO DAILY 06/14/18 05/01/19 History acetaminophen [Tylenol Extra 500 mg PO Q6H PRN 06/14/18 05/01/19 History Strength] carvedilol [Coreg] 12.5 mg PO BID 06/14/18 05/01/19 History cholecalciferol (vitamin D3) 1,000 unit PO DAILY 06/14/18 05/01/19 History [Vitamin D3] omeprazole 20 mg PO DAILY 06/14/18 05/01/19 History sevelamer carbonate [Renvela] 1,600 mg PO DAILYBD 06/14/18 05/01/19 History warfarin [Coumadin] 5 mg PO SUTUTHSA 06/14/18 05/01/19 History Sherley-Neeraj 1 tab PO DAILY 03/18/19 05/01/19 History docusate sodium 100 mg PO BID PRN 03/18/19 05/01/19 History fluticasone propionate [Flonase 1 spray INTRANASAL DAILY PRN 03/18/19 05/01/19 History Allergy Relief] lidocaine-prilocaine 1 applic TOPICAL UD 03/18/19 05/01/19 History sevelamer carbonate 800 mg PO DAILYBB 03/18/19 05/01/19 History sevelamer carbonate [Renvela] 800 mg PO DAILYBL 03/18/19 05/01/19 History vitamin B complex 1 tab PO DAILY 03/18/19 05/01/19 History warfarin [Coumadin] 2.5 mg PO MOWEFR 03/18/19 05/01/19 History ranitidine HCl 150 mg PO Q12H PRN #30 cap 03/19/19 05/01/19 Rx Patient History Medical History GERD (gastroesophageal reflux disease) (Chronic) ESRD (end stage renal disease) on dialysis (Chronic) Dyslipidemia (Chronic) HTN (hypertension) (Chronic) Type 2 diabetes mellitus (Chronic) Pulmonary embolus (Chronic) Aortic valve insufficiency (Chronic) DVT (deep venous thrombosis) (Chronic) " 01/13/09 left leg " 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) "01/27/09, OD " Atrial flutter (Chronic) Anemia (Chronic) Surgical History S/P ablation of atrial flutter (Chronic) History of total hip replacement (Chronic) History of hydrocelectomy (Chronic) H/O superior vena cava filter placement (Chronic) H/O removal of testicle (Chronic) H/O carotid endarterectomy (Chronic) "STEPHY 2008" S/P aortic valve replacement (Chronic) "bio prosthetic" S/P cardiac cath (Chronic) "2012 - non obstructive CAD" Family History Mother Hypertension Brother Stroke Social History Preferred Language: Occitan Communication Ability: Effective Applications Project Manager Required: No Beliefs That Will Affect Care: None marital status: Current Living Situation: Spouse Current Living Situation Comment: lives with Vannesa and six dogs in three story home. Feels Safe at Home: Yes Safety Concerns: Feels Safe At This Time Smoking Status: Former smoker Second Hand Exposure: No Hx Alcohol Use: Yes (history only; no current use) Hx Substance Use: No Review of Systems Review of Systems: All systems reviewed & are unremarkable except as noted in HPI & below Constitutional: + fatigue and + weakness; no fever and no chills Eyes: no worsening vision Ear, Nose, Mouth, Throat: no dry mouth Respiratory: no cough and no dyspnea (no worse than baseline) stable chronic orthopnea Cardiovascular: as per Subjective / HPI and + edema (edema has been worse past 24 hrs but not outside normal variation range) Gastrointestinal: worsened gi sx have slowed somewhat Genitourinary: + problem reported (voids small amount daily no change in chronic voiding habits) Musculoskeletal: as per Subjective / HPI Integumentary: no rash and no non-healing lesions Endocrine: + fatigue Hematologic / Lymphatic: no easy bleeding Physical Exam Constitutional: well developed, well nourished and + obese sitting in bed hob 30 degrees on ra minimal/mild distress/distraction Eyes: EOM intact bilaterally ENMT: Ears: no external ear abnormality Nose: no external nose abnormality Mouth: + dry oral mucous membranes Neck: no nuchal rigidity Respiratory: normal respiratory effort Auscultation: + diminished lung sounds Cardiovascular: Rate/Rhythm: regular rate and regular rhythm Extremities: + edema (2+ pedal edema, trace pretibial) and + AV fistula Gastrointestinal (Abdomen): Inspection/Auscultation: normal bowel sounds Percussion/Palpation: abdomen soft; abdomen nontender Musculoskeletal: Extremities: strength 5/5 throughout limited rom LUE and not reproducible chest/arm pain w/palpation Skin: no rashes, warm and dry Neurologic: uribe, fluent speech, no tremor Psychiatric: Orientation: alert and oriented x 3 Eye Contact: good eye contact Speech: normal rate/rhythm/volume of speech Affect: + flat affect Insight: good insight Judgement: good judgement Results & Data Vital Signs (Past 12 Hours) Vital Signs Temp Pulse Resp BP Pulse Ox 05/01/19 07:48 36.8 C 84 22 106/74 98 05/01/19 06:12 74 14 121/62 97 05/01/19 05:41 74 16 99 05/01/19 05:10 78 17 118/64 99 05/01/19 04:55 79 18 117/57 L 99 05/01/19 04:35 78 16 109/52 L 98 05/01/19 04:26 87 L Laboratory Results Abnormal lab results 05/01/19 05/01/19 05/01/19 Range/Units 03:00 03:00 03:00 WBC 20.09 H (4.8-10.8) K/uL RBC 2.80 L (4.7-6.1) M/uL Hgb 10.4 L (14.0-18.0) g/dL Hct 31.8 L (42-52) % MCV 113.6 H (80-100) fL MCH 37.1 H (25-34) pg RDW Std Deviation 63.3 H (36.4-46.3) fL RDW Coeff of Elvia 15.6 H (11.5-14.5) % MPV 12.2 H (7.4-10.4) fL Immature Gran # (Auto) 0.14 H (0.00-0.02) K/uL Neut # (Auto) 17.06 H (1.4-6.5) K/uL Lymph # (Auto) 1.04 L (1.2-3.4) K/uL [place] # (Auto) 1.71 H (0.11-0.59) K/uL INR 1.2 H (0.9-1.1) APTT 38.7 H (21.0-31.0) Seconds ABG pO2 (80-95) mm/Hg ABG HCO3 (19-24) mmol/L ABG O2 Saturation (90-95) % ABG Base Excess (-9-1.8) mEq/L Chloride 95 L (98-107) mmol/L BUN 42 H (7-18) mg/dl Creatinine 6.27 H* (0.6-1.4) mg/dl BUN/Creatinine Ratio 6.8 L (10-20) Glucose 183 H (70-99) mg/dl POC Glucose (70-99) Alkaline Phosphatase 126 H (45-117) U/L Total Protein 8.3 H (6.4-8.2) gm/dl Albumin 2.7 L (3.4-5.0) gm/dl Procalcitonin (0-0.5) ng/ml 05/01/19 05/01/19 05/01/19 Range/Units 03:00 05:54 08:07 WBC (4.8-10.8) K/uL RBC (4.7-6.1) M/uL Hgb (14.0-18.0) g/dL Hct (42-52) % MCV (80-100) fL MCH (25-34) pg RDW Std Deviation (36.4-46.3) fL RDW Coeff of Elvia (11.5-14.5) % MPV (7.4-10.4) fL Immature Gran # (Auto) (0.00-0.02) K/uL Neut # (Auto) (1.4-6.5) K/uL Lymph # (Auto) (1.2-3.4) K/uL [place] # (Auto) (0.11-0.59) K/uL INR (0.9-1.1) APTT (21.0-31.0) Seconds ABG pO2 117 H (80-95) mm/Hg ABG HCO3 30 H (19-24) mmol/L ABG O2 Saturation 96.5 H (90-95) % ABG Base Excess 5.1 H (-9-1.8) mEq/L Chloride (98-107) mmol/L BUN (7-18) mg/dl Creatinine (0.6-1.4) mg/dl BUN/Creatinine Ratio (10-20) Glucose (70-99) mg/dl POC Glucose 167 H (70-99) Alkaline Phosphatase (45-117) U/L Total Protein (6.4-8.2) gm/dl Albumin (3.4-5.0) gm/dl Procalcitonin 0.79 H (0-0.5) ng/ml Diagnostic Findings chest CTA 1. No evidence of pulmonary embolus.. 2. Components of congestive failure with small bilateral pleural effusions. cxr 1. Hazy appearance to the right lung base has improved. This may represent a resolving pneumonia. 2. Cardiomegaly, unchanged. 3. Diffuse reticulonodular interstitial thickening has progressed. This may represent an atypical pneumonitis or chronic inflammatory process. (1) Leukocytosis Leukocytosis type: unspecified Qualified Code(s): D72.829 - Elevated white blood cell count, unspecified
[2019-05-01] MEDS ORDERED: SODIUM CHLORIDE 0.9% 1000ML 1,000 ML IV PRN (10:25)
[2019-05-01] MEDS ORDERED: EPOETIN ALFA 4,000 UNIT/ML VIAL IV SCH (11:00)
[2019-05-01] MEDS ORDERED: HEPARIN SOD (PORCINE) 1000 UNIT/ML 10 ML VIAL IV SCH (11:00)
[2019-05-01] MEDS: Heparin IV Standard *NO* Bolus IV SCH ×2 (11:20→11:21)
[2019-05-01] MEDS: TRAMADOL HCL 50 MG TABLET PO PRN (13:00)
--- NOTE | 2019-05-01 13:17 | Cardiology Consultation ---
Date of Consultation May 01, 2019 Assessment & Plan (1) Left-sided chest pain: Patient has significant chest wall tenderness to palpation. Echocardiogram will be repeated given elevated white cell count and prosthetic aortic valve in place. Cardiac enzymes initially negative no acute EKG changes to suggest ischemia. Symptoms do not suggest cardiac etiology though patient risks elevated for ischemia. We will review echocardiogram. Exam suggest moderate volume overload setting of chronic renal insufficiency and missed dialysis treatments. Patient undergo dialysis later today. Echocardiogram be reviewed for pericardial effusion as well Patient on chronic anticoagulation now subtherapeutic due to past history of pulmonary emboli. CT scan not suggestive of such (2) Acute CHF: Exam is consistent with a right ventricular failure volume overload past managed with dialysis will follow clinically is dialysis to remove excess fluid (3) ESRD (end stage renal disease) on dialysis: (4) S/P ablation of atrial flutter: (5) S/P aortic valve replacement: (6) S/P cardiac cath: (7) Leukocytosis: Blood cultures initially negative. Stool sample negative for C. difficile History of Present Illness Reason for Consultation: Chest and chest wall pain Requesting Physician: Dr. Dockery Attending Physician: Janice Dockery, History of Present Illness Patient an 84-year-old male with cardiac issues as noted 1. History of recurrent atrial flutter for which patient underwent catheter ablation July 2016 without clinical recurrence 2. Bioprosthetic aortic valve replacement 04/22/2012 with 23 millimeter Kristie-Barraza pericardial valve 3. Nonobstructive CAD on preoperative cardiac catheterization in 2011 4. End-stage renal disease for which the patient is on hemodialysis 3 days per week 5. History of remote life-threatening pulmonary embolism for which he remains on chronic anticoagulation 6. Status post right carotid endarterectomy, 2008, < 50% bilateral carotid stenosis on duplex in 2017. Patient presents this admission with recent hospitalization with pneumonia per reports since discharge to home he had difficulties with intermittent diarrhea. He is missed 2 dialysis treatments. Today developed left-sided and substernal chest discomfort markedly tender to palpation with mild pleuritic component as well. This resulted in the ER and hospital presentation. Troponins x2-. EKG without acute ischemic changes with sinus rhythm with first-degree AV block with low atrial focus consistent with prior ablation. Telemetry is demonstrated mild wandering atrial pacemaker. Continues to have chest wall tenderness though improved since admission. Anticipates dialysis later today. Is aware of increasing both lower extremity edema and abdominal girth but has not been noted to have increased weight per patient. Loose stools and diarrhea has been ongoing problem. Notes no worsening shortness of breath. Notes no tachypalpitations syncope or near sy ncope. Notes no overt bleeding difficulty. He denies chills or rigor, no overt fever. White cell count is elevated substantially on presentation Allergies Allergy/AdvReac Type Severity Reaction Status Date / Time aspirin Allergy Unknown . Verified 05/01/19 04:33 salicylates Allergy Unknown UNKNOWN Verified 05/01/19 04:33 Home Medications Home Medications Medication Instructions Recorded Confirmed Type [place]-3 1 tab PO DAILY 06/14/18 05/01/19 History acetaminophen [Tylenol Extra 500 mg PO Q6H PRN 06/14/18 05/01/19 History Strength] carvedilol [Coreg] 12.5 mg PO BID 06/14/18 05/01/19 History cholecalciferol (vitamin D3) 1,000 unit PO DAILY 06/14/18 05/01/19 History [Vitamin D3] omeprazole 20 mg PO DAILY 06/14/18 05/01/19 History sevelamer carbonate [Renvela] 1,600 mg PO DAILYBD 06/14/18 05/01/19 History warfarin [Coumadin] 5 mg PO SUTUTHSA 06/14/18 05/01/19 History Sherley-Neeraj 1 tab PO DAILY 03/18/19 05/01/19 History docusate sodium 100 mg PO BID PRN 03/18/19 05/01/19 History fluticasone propionate [Flonase 1 spray INTRANASAL DAILY PRN 03/18/19 05/01/19 History Allergy Relief] lidocaine-prilocaine 1 applic TOPICAL UD 03/18/19 05/01/19 History sevelamer carbonate 800 mg PO DAILYBB 03/18/19 05/01/19 History sevelamer carbonate [Renvela] 800 mg PO DAILYBL 03/18/19 05/01/19 History vitamin B complex 1 tab PO DAILY 03/18/19 05/01/19 History warfarin [Coumadin] 2.5 mg PO MOWEFR 03/18/19 05/01/19 History ranitidine HCl 150 mg PO Q12H PRN #30 cap 03/19/19 05/01/19 Rx Patient History Medical History GERD (gastroesophageal reflux disease) (Chronic) ESRD (end stage renal disease) on dialysis (Chronic) Dyslipidemia (Chronic) HTN (hypertension) (Chronic) Type 2 diabetes mellitus (Chronic) Pulmonary embolus (Chronic) Aortic valve insufficiency (Chronic) DVT (deep venous thrombosis) (Chronic) " 01/13/09 left leg " 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) "01/27/09, OD " Atrial flutter (Chronic) Anemia (Chronic) Surgical History S/P ablation of atrial flutter (Chronic) History of total hip replacement (Chronic) History of hydrocelectomy (Chronic) H/O superior vena cava filter placement (Chronic) H/O removal of testicle (Chronic) H/O carotid endarterectomy (Chronic) "STEPHY 2008" S/P aortic valve replacement (Chronic) "bio prosthetic" S/P cardiac cath (Chronic) "2012 - non obstructive CAD" Family History Mother Hypertension Brother Stroke Social History Preferred Language: Persian Communication Ability: Effective Subway Conductor Required: No Beliefs That Will Affect Care: None marital status: Current Living Situation: Spouse Current Living Situation Comment: lives with Vannesa and six dogs in three story home. Feels Safe at Home: Yes Safety Concerns: Feels Safe At This Time Smoking Status: Former smoker Second Hand Exposure: No Hx Alcohol Use: Yes (history only; no current use) Hx Substance Use: No Physical Exam Constitutional: WD/WN, vitals as above no acute distress Eyes: PERRL, conjunctivae normal, anicteric sclerae ENMT: external ear and nose normal, oropharynx normal Neck: trachea midline, no thyromegaly Respiratory: no labored breathing Auscultation: + diminished lung sounds Cardiovascular: Rate/Rhythm: regular rate and regular rhythm Heart Sounds: normal S1, normal S2 and + murmur (Grade 2/6 systolic, no diastolic); no gallop Palpation: normal PMI Vessels: normal carotid upstroke and radial pulses present; no JVD and no carotid bruit Extremities: + edema (Diffuse upper and lower extremities) Chest (Breasts): Additional Comments: Chest wall tenderness to palpation left greater than right Gastrointestinal (Abdomen): normal bowel sounds, soft, nontender, no hepatosplenomegaly Musculoskeletal: no cyanosis or clubbing, extremities motor strength 5/5 Skin: no rashes, warm and dry Neurologic: PERRL, EOMI, accommodation nl, no face palsy, no dysarthria Psychiatric: A+Ox3, euthymic affect Results & Data Vital Signs (Past 12 Hours) Vital Signs Temp Pulse Pulse Resp BP Pulse Ox 05/01/19 11:46 36.9 C 75 16 106/54 L 94 05/01/19 10:16 37 C 16 132/68 98 05/01/19 07:48 36.8 C 84 22 106/74 98 05/01/19 06:12 74 14 121/62 97 05/01/19 05:41 74 16 99 05/01/19 05:10 78 17 118/64 99 05/01/19 04:55 79 18 117/57 L 99 05/01/19 04:35 78 16 109/52 L 98 05/01/19 04:26 87 L Laboratory Results Laboratory Results - last 24 hr 05/01/19 05/01/19 05/01/19 03:00 03:00 03:00 WBC 20.09 H RBC 2.80 L Hgb 10.4 L Hct 31.8 L MCV 113.6 H MCH 37.1 H MCHC 32.7 RDW Std Deviation 63.3 H RDW Coeff of Elvia 15.6 H Plt Count 133 MPV 12.2 H Immature Gran % (Auto) 0.7 Neut % (Auto) 85.0 Lymph % (Auto) 5.2 [place] % (Auto) 8.5 Eos % (Auto) 0.5 Baso % (Auto) 0.1 Immature Gran # (Auto) 0.14 H Neut # (Auto) 17.06 H Lymph # (Auto) 1.04 L [place] # (Auto) 1.71 H Eos # (Auto) 0.11 Baso # (Auto) 0.03 Giant Platelets 1+ PT 11.8 INR 1.2 H APTT 38.7 H PTT Ratio 1.4 ABG pH ABG pCO2 ABG pO2 ABG HCO3 ABG O2 Saturation ABG Base Excess [place] Test Barometric Pressure Oxygen Given Sodium 136 Potassium 4.8 Chloride 95 L Carbon Dioxide 30 Anion Gap 11.0 BUN 42 H Creatinine 6.27 H* Est Cr Clr Drug Dosing Not Reportable Est GFR ( Amer) 8.7 Est GFR (Non-Af Amer) 7.5 BUN/Creatinine Ratio 6.8 L Glucose 183 H POC Glucose Lactate Calcium 8.6 Magnesium 1.9 Total Bilirubin 0.6 Direct Bilirubin 0.2 AST 17 ALT 27 Alkaline Phosphatase 126 H Troponin I < 0.015 Total Protein 8.3 H Albumin 2.7 L Lipase 284 Procalcitonin 05/01/19 05/01/19 05/01/19 03:00 05:16 05:54 WBC RBC Hgb Hct MCV MCH MCHC RDW Std Deviation RDW Coeff of Elvia Plt Count MPV Immature Gran % (Auto) Neut % (Auto) Lymph % (Auto) [place] % (Auto) Eos % (Auto) Baso % (Auto) Immature Gran # (Auto) Neut # (Auto) Lymph # (Auto) [place] # (Auto) Eos # (Auto) Baso # (Auto) Giant Platelets PT INR APTT PTT Ratio ABG pH 7.45 ABG pCO2 44 ABG pO2 117 H ABG HCO3 30 H ABG O2 Saturation 96.5 H ABG Base Excess 5.1 H [place] Test Pos Barometric Pressure 734.4 Oxygen Given 3L Sodium Potassium Chloride Carbon Dioxide Anion Gap BUN Creatinine Est Cr Clr Drug Dosing Est GFR ( Amer) Est GFR (Non-Af Amer) BUN/Creatinine Ratio Glucose POC Glucose Lactate 1.3 Calcium Magnesium Total Bilirubin Direct Bilirubin AST ALT Alkaline Phosphatase Troponin I Total Protein Albumin Lipase Procalcitonin 0.79 H 05/01/19 05/01/19 05/01/19 08:07 09:32 14:26 WBC RBC Hgb Hct MCV MCH MCHC RDW Std Deviation RDW Coeff of Elvia Plt Count MPV Immature Gran % (Auto) Neut % (Auto) Lymph % (Auto) [place] % (Auto) Eos % (Auto) Baso % (Auto) Immature Gran # (Auto) Neut # (Auto) Lymph # (Auto) [place] # (Auto) Eos # (Auto) Baso # (Auto) Giant Platelets PT INR APTT PTT Ratio ABG pH ABG pCO2 ABG pO2 ABG HCO3 ABG O2 Saturation ABG Base Excess [place] Test Barometric Pressure Oxygen Given Sodium Potassium Chloride Carbon Dioxide Anion Gap BUN Creatinine Est Cr Clr Drug Dosing Est GFR ( Amer) Est GFR (Non-Af Amer) BUN/Creatinine Ratio Glucose POC Glucose 167 H Lactate Calcium Magnesium Total Bilirubin Direct Bilirubin AST ALT Alkaline Phosphatase Troponin I < 0.015 < 0.015 Total Protein Albumin Lipase Procalcitonin 05/01/19 14:26 WBC RBC Hgb Hct MCV MCH MCHC RDW Std Deviation RDW Coeff of Elvia Plt Count MPV Immature Gran % (Auto) Neut % (Auto) Lymph % (Auto) [place] % (Auto) Eos % (Auto) Baso % (Auto) Immature Gran # (Auto) Neut # (Auto) Lymph # (Auto) [place] # (Auto) Eos # (Auto) Baso # (Auto) Giant Platelets PT INR APTT Pending PTT Ratio Pending ABG pH ABG pCO2 ABG pO2 ABG HCO3 ABG O2 Saturation ABG Base Excess [place] Test Barometric Pressure Oxygen Given Sodium Potassium Chloride Carbon Dioxide Anion Gap BUN Creatinine Est Cr Clr Drug Dosing Est GFR ( Amer) Est GFR (Non-Af Amer) BUN/Creatinine Ratio Glucose POC Glucose Lactate Calcium Magnesium Total Bilirubin Direct Bilirubin AST ALT Alkaline Phosphatase Troponin I Total Protein Albumin Lipase Procalcitonin (1) Acute CHF Heart failure type: unspecified Qualified Code(s): I50.9 - Heart failure, unspecified (2) Leukocytosis Leukocytosis type: unspecified Qualified Code(s): D72.829 - Elevated white blood cell count, unspecified
[2019-05-01 14:56] LABS: Partial Thromboplastin Ratio 3.2
[2019-05-01 15:23] LABS: Partial Thromboplastin Time 87.5 Seconds (21.0-31.0)
--- NOTE | 2019-05-01 15:51 | Hospitalist Progress Note ---
Date of Service May 01, 2019 Assessment & Plan (1) PMR (polymyalgia rheumatica): ACS was ruled out and chest discomfort is very atypical for this presentation. There is significant tenderness to palpation. Starting trial of prednisone 20mg daily. Patient should see a response within a few days to 3 weeks. (2) ESRD (end stage renal disease) on dialysis: [facility] is dialyzing him and helping to optimize fluid status. He is well- known to them. (3) Type 2 diabetes mellitus: controlled, cont ISS and carb coverage. (4) DVT prophylaxis: heparin drip Full Code Dispo-uncertain at this time Janice Dockery DO [facility] Hospitalist Subjective 84 yo M with h/o CAD presented to the hospital with a weakness and severe achiness in his L shoulder girdle/left anterior chest area for a few hours [employer]. He also reports missing dialysis two days ago 2/2 excessive diarrhea. He reports this has resolved but he is still weak and his shoulder is aching with decreased ROM. He is unable to lie on it, and denies pain like this in the past. ACS was ruled out with serial negative troponin enzymes. An echo was performed that was unchanged from prior with a normal ejection fraction. He has actually been feeling poorly for several weeks with recent hospitalization two weeks ago for pneumonia. Review of Systems Review of Systems: All systems reviewed & are unremarkable except as noted in HPI & below Physical Exam Physical Exam: CONSTITUTIONAL: WNWD, vitals as above, generally well- appearing EYES: PERRL, normal conjunctivae, no scleral icterus ENT: MMM NECK: trachea midline, no lymphadenopathy RESPIRATORY: clear to auscultation bilaterally, no crackles, rales or wheezes, normal respiratory effort CARDIOVASCULAR: regular rate and rhythm, S1 and 2 heard without murmurs, gallops or rubs, no JVD, no peripheral edema, no carotid bruits GASTROINTESTINAL: normal bowel sounds, soft, nontender, nondistended MUSCULOSKELETAL: strength 5/5 throughout, but generally weak. Very slow transitions from chair to bed. Head is normocephalic and atraumatic, neck supple, normal palpation of chest wall without tenderness. Very tender sh oulder, espec at the L glenohumeral joint and around the shoudler. SKIN: warm and dry, no rashes NEUROLOGIC: CN 2-12 grossly intact-no gross focal deficits. PSYCHIATRIC: alert cooperative and oriented to person, place and time. Results & Data Vital Signs (Past 12 Hours) Vital Signs Temp Pulse Pulse Pulse Resp BP Pulse Ox 05/01/19 15:31 91 H 05/01/19 11:46 36.9 C 75 16 106/54 L 94 05/01/19 10:16 37 C 16 132/68 98 05/01/19 07:48 36.8 C 84 22 106/74 98 05/01/19 06:12 74 14 121/62 97 05/01/19 05:41 74 16 99 05/01/19 05:10 78 17 118/64 99 05/01/19 04:55 79 18 117/57 L 99 05/01/19 04:35 78 16 109/52 L 98 05/01/19 04:26 87 L Laboratory Results Short CBC 05/01/19 Range/Units 03:00 WBC 20.09 H (4.8-10.8) K/uL Hgb 10.4 L (14.0-18.0) g/dL Hct 31.8 L (42-52) % Plt Count 133 (130-400) K/uL BMP 05/01/19 03:00 Sodium 136 Potassium 4.8 Chloride 95 L Carbon Dioxide 30 BUN 42 H Creatinine 6.27 H* Glucose 183 H Calcium 8.6 Cardiac Enzymes 05/01/19 05/01/19 05/01/19 Range/Units 03:00 09:32 14:26 Troponin I < 0.015 < 0.015 < 0.015 (0-0.045) ng/ml Liver Function 05/01/19 Range/Units 03:00 Total Bilirubin 0.6 (0.2-1) mg/dl Direct Bilirubin 0.2 (0-0.2) mg/dl AST 17 (15-37) U/L ALT 27 (12-78) U/L Alkaline Phosphatase 126 H (45-117) U/L Albumin 2.7 L (3.4-5.0) gm/dl Medications Administered Current Inpatient Medications Acetaminophen (Tylenol) 650 mg PO Q4H PRN PRN Reason: Pain or Fever Stop: 05/31/19 07:43 Carvedilol (Coreg) 12.5 mg PO BID JAMES Stop: 05/31/19 08:59 Last Admin: 05/01/19 08:57 Dose: 12.5 mg Documented by: Dextrose (Dextrose 50%) 25 - 50 ml IV UD PRN; Protocol PRN Reason: Hypoglycemia Protocol Stop: 05/31/19 07:43 Docusate Sodium (Colace) 100 mg PO BID PRN PRN Reason: Constipation Epoetin Royer (Procrit) 4,000 units IV TODAY@1100 JAMES Stop: 05/01/19 18:00 Glucagon (Glucagen) 1 mg SQ UD PRN; Protocol PRN Reason: Hypoglycemia Protocol Stop: 05/31/19 07:43 Glucose (Glucose 40%) 15 - 30 gm PO UD PRN; Protocol PRN Reason: Hypoglycemia Protocol Stop: 05/31/19 07:43 Glucose (Dex4 Glucose) 4 - 8 tabs PO UD PRN; Protocol PRN Reason: Hypoglycemia Protocol Stop: 05/31/19 07:43 Heparin Sodium (Porcine) (Heparin Iv Bolus) 1,000 units IV TODAY@1100 JAMES Stop: 05/01/19 18:00 Hydromorphone HCl (Dilaudid) 0.25 mg IV Q3H PRN PRN Reason: Pain Stop: 05/15/19 07:43 Promethazine HCl 12.5 mg/ (Sodium Chloride) 50.5 mls @ 202 mls/hr IV Q6H PRN PRN Reason: Nausea And Vomiting Stop: 05/31/19 07:43 Heparin Sodium/Dextrose (Heparin Sodium/Dextrose) 25,000 units in 500 mls @ 0 mls/hr IV .Q0M JAMES; Protocol Stop: 05/31/19 07:59 Last Titration: 05/01/19 15:24 Dose: 0 units/hr, 0 mls/hr Documented by: Sodium Chloride (Nss 1000ml) 1,000 mls @ 0 mls/hr IV .Q0M PRN PRN Reason: For Hemodialysis Use ONLY Stop: 05/01/19 16:24 Insulin Aspart (Novolog Flexpen) 0 units SC ACHS [facility] Stop: 05/31/19 07:59 Last Admin: 05/01/19 12:37 Dose: 3 units Documented by: Ioversol (Optiray 320 125ml) 118 ml IV ONCE PRN PRN Reason: Interaction Checking Stop: 05/05/19 06:38 Last Admin: 05/01/19 06:40 Dose: 118 ml Documented by: Miscellaneous (Carbohydrates For Hypoglycemia) 15 - 30 gm PO UD PRN PRN Reason: Hypoglycemia Treatment Stop: 05/31/19 07:43 Pantoprazole Sodium (Protonix) 40 mg PO DAILY JAMES Stop: 05/31/19 08:59 Last Admin: 05/01/19 08:58 Dose: 40 mg Documented by: Ranitidine HCl (Zantac) 150 mg PO Q12H PRN PRN Reason: heartburn Stop: 05/31/19 07:43 Sevelamer HCl (Renagel) 1,600 mg PO DAILYBD JAMES Stop: 05/31/19 15:29 Sevelamer HCl (Renagel) 800 mg PO DAILYBL JAMES Stop: 05/31/19 10:29 Last Admin: 05/01/19 12:33 Dose: 800 mg Documented by: Sevelamer HCl (Renagel) 800 mg PO DAILYBB [facility] Stop: 05/31/19 07:43 Last Admin: 05/01/19 08:59 Dose: 800 mg Documented by: Tramadol HCl (Ultram) 25 - 50 mg PO Q4H PRN PRN Reason: Pain Stop: 05/31/19 07:43 Last Admin: 05/01/19 13:00 Dose: 50 mg Documented by: Vitamin B Complex (Vitamin B Complex) 1 tab PO DAILY JAMES Stop: 05/31/19 08:59 Last Admin: 05/01/19 08:57 Dose: 1 tab Documented by: Vitamin D (Vitamin D3) 1,000 units PO DAILY JAMES Stop: 05/31/19 08:59 Last Admin: 05/01/19 08:58 Dose: 1,000 units Documented by: Warfarin Sodium (Coumadin) 5 mg PO DAILY@1600 [facility] Stop: 06/01/19 15:59
[2019-05-01] MEDS ORDERED: predniSONE 20 MG TAB PO STA (18:27)
[2019-05-01] MEDS: HEPARIN SOD (PORCINE) 1000 UNIT/ML 10 ML VIAL IV SCH (18:41)
[2019-05-01] MEDS: INSULIN GLARGINE SOLOSTAR 100 UNITS/ML 3 ML PEN SC SCH (21:28)
[2019-05-01 22:56] LABS: Partial Thromboplastin Ratio 4.4
[2019-05-02] MEDS ORDERED: VANCOMYCIN CONSULT ACTIVE PRN (02:36)
[2019-05-02] MEDS ORDERED: VANCOMYCIN HCL 2,000 MG in SODIUM CHLORIDE 0.9% 500 ML IV ONE (02:45)
[2019-05-02] MEDS: SEVELAMER HCL 800 MG TABLET PO SCH ×3 (05:46→15:53)
[2019-05-02 05:57] LABS: Hematocrit (blood only) 28.3 % (42-52); Mean Corpuscular Hgb Conc 31.8 g/dL (32-36); Mean Corpuscular Volume 114.6 fL (80-100); Mean Platelet Volume 11.8 fL (7.4-10.4); Platelet Count 119 K/uL (130-400); RDW Coefficient of Variation 15.7 % (11.5-14.5); RDW Standard Deviation 64.5 fL (36.4-46.3); Red Blood Count 2.47 M/uL (4.7-6.1); White Blood Count 18.24 K/uL (4.8-10.8)
[2019-05-02 06:21] LABS: Basophils # (auto) 0.02 K/uL (0-0.2); Basophils % (auto) 0.1 %; Immature Granulocytes % (auto) 0.5 %; Lymphocytes # (auto) 0.71 K/uL (1.2-3.4); Lymphocytes % (auto) 3.9 %; Macrocytosis Present; Monocytes # (auto) 0.72 K/uL (0.11-0.59); Monocytes % (auto) 3.9 %; Neutrophils # (auto) 16.69 K/uL (1.4-6.5); Neutrophils % (auto) 91.6 %; Spherocytes Occasional
[2019-05-02 06:22] LABS: INR 1.3 (0.9-1.1); Partial Thromboplastin Ratio 3.6; Prothrombin Time 13.4 Seconds (9.0-12.0)
[2019-05-02 06:27] LABS: Partial Thromboplastin Time 98.8 Seconds (21.0-31.0)
[2019-05-02 06:48] LABS: BUN Creatinine Ratio 6.3 (10-20); C Reactive Protein 22.6 mg/dl (0-0.29); Calcium 7.9 mg/dl (8.5-10.1); Creatinine Clr Calc Pharmacy 12.9 ml/min; Est GFR (Non-African American) 10.4; Potassium 5.2 mmol/L (3.5-5.1)
[2019-05-02] MEDS: Heparin Adult STANDARD Wt-Based Dextrose 5% 25,000 units/500 mL IV SCH (07:31)
[2019-05-02] MEDS ORDERED: SODIUM CHLORIDE 0.9% 1000ML 1,000 ML IV PRN (07:45)
[2019-05-02] MEDS ORDERED: EPOETIN ALFA 10,000 UNITS/ML VIAL IV ONE (07:45)
[2019-05-02] MEDS: INSULIN ASPART 100 UNITS/ML 3 ML PEN SC SCH ×4 (08:23→20:34)
[2019-05-02] MEDS: INSULIN GLARGINE SOLOSTAR 100 UNITS/ML 3 ML PEN SC SCH ×2 (08:24→20:33)
[2019-05-02] MEDS: CARVEDILOL 12.5 MG TAB PO SCH ×2 (08:25→20:07)
[2019-05-02] MEDS: VITAMIN B COMPLEX TAB PO SCH (08:26)
[2019-05-02] MEDS: CHOLECALCIFEROL 1,000 UNITS TAB PO SCH (08:26)
[2019-05-02] MEDS: PANTOprazole 40 MG TAB PO SCH (08:26)
[2019-05-02] MEDS: predniSONE 20 MG TAB PO SCH (08:26)
[2019-05-02] MEDS: TRAMADOL HCL 50 MG TABLET PO PRN (08:33)
--- NOTE | 2019-05-02 09:48 | Pharmacy Report ---
Pharmacy Abx Initial Consult - Date of Service May 02, 2019 - Pharmacy Dosing Scope Date of Consult: 05/02/19 Consultation requested by: Dr. Ortiz Pharmacy is consulted to initiate Vancomycin IV dosing therapy, order appropriate labs and adjust drug dose/frequency. - Subjective The patient is a 84 year old M admitted on 05/01/19 06:06. - Objective Height: 5 ft 8 in Weight: 95.6 kg Vital Signs (Past 12hrs): Vital Signs Temp Pulse Pulse Resp BP Pulse Ox 05/02/19 07:40 36.9 C 85 20 110/66 92 05/02/19 04:00 36.4 C L 79 21 104/59 L 91 05/02/19 01:13 75 05/01/19 22:58 37.0 C 79 17 112/63 91 Lab Results (24hrs): Laboratory Tests (24 Hours) 05/02/19 05/02/19 05/02/19 08:08 05:40 05:40 WBC Neut # (Auto) ESR 68 H Creatinine 4.78 H* D Est Cr Clr Drug Dosing 12.9 C-Reactive Protein 22.60 H Random Vancomycin 31.9 05/02/19 05/01/19 05/01/19 05:40 21:00 21:00 WBC 18.24 H Neut # (Auto) 16.69 H ESR 84 H Creatinine Est Cr Clr Drug Dosing C-Reactive Protein 19.50 H Random Vancomycin Micro Results: Microbiology 05/01/19 05:16 Blood Aerobic Blood Culture - Preliminary 05/01/19 05:16 Blood Anaerobic Blood Culture - Preliminary No growth in Aerobic bottle after 24 hours. No growth in Anaerobic bottle after 24 hours. 05/01/19 05:16 Blood Aerobic Blood Culture - Preliminary 05/01/19 05:16 Blood Anaerobic Blood Culture - Preliminary Gram positive cocci clusters No growth in Anaerobic bottle after 24 hours. Laboratory Tests 05/01/19 05:16 Bld Cult Staph aureus PCR Positive A Blood Culture MRSA PCR Negative - Risk Factors for Resistance * Hospitalization for 48 hours or more within the past 90 days * Recent admission 2 weeks ago for pneumonia/sepsis and treated with IV Abx * Chronic dialysis within the past 30 days * ESRD on HD ,, * Antimicrobial use within the last 90 days * IV Ceftriaxone, Zosyn * PO Augmentin - Assessment & Plan Assessment 84 year old M admitted for acute chest pain and found to have bacteremia Pertinent PMH includes DM, ESRD on HD TTS, and recent hospitalization within the past 30 days for pneumonia/sepsis treated with IV & PO Abx To receive HD today per nephrology 1/2 Blood cultures growing gram-positive cocci in clusters Blood S. aureus PCR is positive; Blood MRSA PCR is negative Plan IV Vancomycin for treatment of bacteremia Vancomycin IV * Loading dose: 2000 mg (20 mg/kg) * Dosing will be based off pre-HD random levels * Goal trough level for bacteremia: 15 to 20 mcg/mL * Random levels ordered for 05/03/19 (pre-HD) Pharmacy will continue to follow and will adjust dose/frequency as necessary. Thank you.
--- NOTE | 2019-05-02 13:31 | Nephrology Progress Note ---
Date of Service May 02, 2019 Assessment & Plan (1) ESRD (end stage renal disease) on dialysis: HD today shorter tx w/ goal 2LUF as tolerated. tolerated tx well; feeling some improvement. he does not look floridly volume overloaded though he certainly has some fluid on board on his CT chest. will dialyze again tomorrow routine tx w/ more aggressive uf to try to improve volume status. 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 tolerated extra hd today w/o issue. eating well w/o n/v. no chest pain at this time Review of Systems Review of Systems: All systems reviewed & are unremarkable except as noted in HPI & below Physical Exam Constitutional: well developed, well nourished and + obese on RA and heparin gtt nad Eyes: EOM intact bilaterally ENMT: Ears: no external ear abnormality Nose: no external nose abnormality Mouth: + dry oral mucous membranes Neck: no nuchal rigidity Respiratory: normal respiratory effort Auscultation: + diminished lung sounds crackles R base Cardiovascular: Rate/Rhythm: regular rate and regular rhythm Heart Sounds: + murmur Extremities: + edema (1+ pedal edema, trace pretibial) and + AV fistula Gastrointestinal (Abdomen): Inspection/Auscultation: normal bowel sounds Percussion/Palpation: abdomen soft; abdomen nontender Musculoskeletal: Extremities: strength 5/5 throughout Skin: no rashes, warm and dry Neurologic: uribe, fluent speech, no tremor Psychiatric: Orientation: alert and oriented x 3 Eye Contact: good eye contact Speech: normal rate/rhythm/volume of speech Affect: + flat affect Insight: good insight Judgement: good judgement Results & Data Vital Signs (Past 12 Hours) Vital Signs Temp Pulse Pulse Pulse Resp BP BP 05/02/19 13:06 36.6 C 81 18 150/72 H 05/02/19 10:20 75 117/70 05/02/19 10:00 74 103/62 05/02/19 09:40 75 124/66 05/02/19 09:27 37.0 C 82 05/02/19 07:40 36.9 C 85 20 110/66 05/02/19 04:00 36.4 C L 79 21 104/59 L Pulse Ox 05/02/19 13:06 91 05/02/19 10:20 05/02/19 10:00 05/02/19 09:40 05/02/19 09:27 05/02/19 07:40 92 05/02/19 04:00 91 Laboratory Results Abnormal lab results 05/01/19 05/01/19 05/01/19 Range/Units 05:16 12:36 14:26 WBC (4.8-10.8) K/uL RBC (4.7-6.1) M/uL Hgb (14.0-18.0) g/dL Hct (42-52) % MCV (80-100) fL MCH (25-34) pg MCHC (32-36) g/dL RDW Std Deviation (36.4-46.3) fL RDW Coeff of Elvia (11.5-14.5) % Plt Count (130-400) K/uL MPV (7.4-10.4) fL Immature Gran # (Auto) (0.00-0.02) K/uL Neut # (Auto) (1.4-6.5) K/uL Lymph # (Auto) (1.2-3.4) K/uL Campbell # (Auto) (0.11-0.59) K/uL ESR (0-14) mm/hr PT (9.0-12.0) Seconds INR (0.9-1.1) APTT 87.5 H* (21.0-31.0) Seconds Sodium (136-145) mmol/L Potassium (3.5-5.1) mmol/L Chloride (98-107) mmol/L BUN (7-18) mg/dl Creatinine (0.6-1.4) mg/dl BUN/Creatinine Ratio (10-20) Glucose (70-99) mg/dl POC Glucose 209 H (70-99) Calcium (8.5-10.1) mg/dl C-Reactive Protein (0-0.29) mg/dl Bld Cult Staph aureus PCR Positive A (Negative) 05/01/19 05/01/19 05/01/19 Range/Units 16:35 20:11 21:00 WBC (4.8-10.8) K/uL RBC (4.7-6.1) M/uL Hgb (14.0-18.0) g/dL Hct (42-52) % MCV (80-100) fL MCH (25-34) pg MCHC (32-36) g/dL RDW Std Deviation (36.4-46.3) fL RDW Coeff of Elvia (11.5-14.5) % Plt Count (130-400) K/uL MPV (7.4-10.4) fL Immature Gran # (Auto) (0.00-0.02) K/uL Neut # (Auto) (1.4-6.5) K/uL Lymph # (Auto) (1.2-3.4) K/uL Campbell # (Auto) (0.11-0.59) K/uL ESR (0-14) mm/hr PT (9.0-12.0) Seconds INR (0.9-1.1) APTT (21.0-31.0) Seconds Sodium (136-145) mmol/L Potassium (3.5-5.1) mmol/L Chloride (98-107) mmol/L BUN (7-18) mg/dl Creatinine (0.6-1.4) mg/dl BUN/Creatinine Ratio (10-20) Glucose (70-99) mg/dl POC Glucose 154 H 126 H (70-99) Calcium (8.5-10.1) mg/dl C-Reactive Protein 19.50 H (0-0.29) mg/dl Bld Cult Staph aureus PCR (Negative) 05/01/19 05/01/19 05/02/19 Range/Units 21:00 22:10 05:40 WBC 18.24 H (4.8-10.8) K/uL RBC 2.47 L (4.7-6.1) M/uL Hgb 9.0 L (14.0-18.0) g/dL Hct 28.3 L (42-52) % MCV 114.6 H (80-100) fL MCH 36.4 H (25-34) pg MCHC 31.8 L (32-36) g/dL RDW Std Deviation 64.5 H (36.4-46.3) fL RDW Coeff of Elvia 15.7 H (11.5-14.5) % Plt Count 119 L (130-400) K/uL MPV 11.8 H (7.4-10.4) fL Immature Gran # (Auto) 0.10 H (0.00-0.02) K/uL Neut # (Auto) 16.69 H (1.4-6.5) K/uL Lymph # (Auto) 0.71 L (1.2-3.4) K/uL Campbell # (Auto) 0.72 H (0.11-0.59) K/uL ESR 84 H (0-14) mm/hr PT (9.0-12.0) Seconds INR (0.9-1.1) APTT 120.0 H* (21.0-31.0) Seconds Sodium (136-145) mmol/L Potassium (3.5-5.1) mmol/L Chloride (98-107) mmol/L BUN (7-18) mg/dl Creatinine (0.6-1.4) mg/dl BUN/Creatinine Ratio (10-20) Glucose (70-99) mg/dl POC Glucose (70-99) Calcium (8.5-10.1) mg/dl C-Reactive Protein (0-0.29) mg/dl Bld Cult Staph aureus PCR (Negative) 05/02/19 05/02/19 05/02/19 Range/Units 05:40 05:40 05:40 WBC (4.8-10.8) K/uL RBC (4.7-6.1) M/uL Hgb (14.0-18.0) g/dL Hct (42-52) % MCV (80-100) fL MCH (25-34) pg MCHC (32-36) g/dL RDW Std Deviation (36.4-46.3) fL RDW Coeff of Elvia (11.5-14.5) % Plt Count (130-400) K/uL MPV (7.4-10.4) fL Immature Gran # (Auto) (0.00-0.02) K/uL Neut # (Auto) (1.4-6.5) K/uL Lymph # (Auto) (1.2-3.4) K/uL Campbell # (Auto) (0.11-0.59) K/uL ESR 68 H (0-14) mm/hr PT 13.4 H (9.0-12.0) Seconds INR 1.3 H (0.9-1.1) APTT 98.8 H* (21.0-31.0) Seconds Sodium 134 L (136-145) mmol/L Potassium 5.2 H (3.5-5.1) mmol/L Chloride 95 L (98-107) mmol/L BUN 29 H (7-18) mg/dl Creatinine 4.78 H* D (0.6-1.4) mg/dl BUN/Creatinine Ratio 6.3 L (10-20) Glucose 187 H (70-99) mg/dl POC Glucose (70-99) Calcium 7.9 L (8.5-10.1) mg/dl C-Reactive Protein 22.60 H (0-0.29) mg/dl Bld Cult Staph aureus PCR (Negative) 05/02/19 05/02/19 Range/Units 07:40 13:03 WBC (4.8-10.8) K/uL RBC (4.7-6.1) M/uL Hgb (14.0-18.0) g/dL Hct (42-52) % MCV (80-100) fL MCH (25-34) pg MCHC (32-36) g/dL RDW Std Deviation (36.4-46.3) fL RDW Coeff of Elvia (11.5-14.5) % Plt Count (130-400) K/uL MPV (7.4-10.4) fL Immature Gran # (Auto) (0.00-0.02) K/uL Neut # (Auto) (1.4-6.5) K/uL Lymph # (Auto) (1.2-3.4) K/uL Campbell # (Auto) (0.11-0.59) K/uL ESR (0-14) mm/hr PT (9.0-12.0) Seconds INR (0.9-1.1) APTT (21.0-31.0) Seconds Sodium (136-145) mmol/L Potassium (3.5-5.1) mmol/L Chloride (98-107) mmol/L BUN (7-18) mg/dl Creatinine (0.6-1.4) mg/dl BUN/Creatinine Ratio (10-20) Glucose (70-99) mg/dl POC Glucose 200 H 163 H (70-99) Calcium (8.5-10.1) mg/dl C-Reactive Protein (0-0.29) mg/dl Bld Cult Staph aureus PCR (Negative) (1) Leukocytosis Leukocytosis type: unspecified Qualified Code(s): D72.829 - Elevated white blood cell count, unspecified
[2019-05-02 13:59] LABS: Partial Thromboplastin Ratio 2.7
[2019-05-02 14:01] LABS: Partial Thromboplastin Time 72.6 Seconds (21.0-31.0)
[2019-05-02] MEDS: WARFARIN SOD 5 MG TAB PO SCH (15:53)
--- NOTE | 2019-05-02 16:12 | Cardiology Progress Note ---
Date of Service May 02, 2019 Assessment & Plan (1) Left-sided chest pain: Patient has significant chest wall tenderness to palpation. Echocardiogram will be repeated given elevated white cell count and prosthetic aortic valve in place. Cardiac enzymes initially negative no acute EKG changes to suggest ischemia. Symptoms do not suggest cardiac etiology though patient risks elevated for ischemia. Patient improved today no evidence on echocardiogram of wall motion abnormalities or pericardial effusion no change in cardiac medications Patient now on an IV heparin due to history of past DVT pulmonary embolus and subtherapeutic INR Clinically stable (2) Acute CHF: Exam is consistent with a right ventricular failure volume overload past managed with dialysis will follow clinically is dialysis to remove excess fluid (3) ESRD (end stage renal disease) on dialysis: (4) S/P ablation of atrial flutter: (5) S/P aortic valve replacement: (6) S/P cardiac cath: (7) Leukocytosis: Blood cultures initially negative. Stool sample negative for C. difficile Subjective Seen and examined, chart, telemetry reviewed. "Patient feels pretty darn good t gina ", tolerated dialysis well. Chest pain and tenderness now improved with corticosteroids No fevers or chills. Bowel issues are improved Physical Exam Constitutional: WD/WN, vitals as above no acute distress Eyes: PERRL, conjunctivae normal, anicteric sclerae ENMT: external ear and nose normal, oropharynx normal Neck: trachea midline, no thyromegaly Respiratory: no labored breathing Auscultation: + diminished lung sounds and + crackles (Minimal right base) Cardiovascular: Rate/Rhythm: regular rate and regular rhythm Heart Sounds: normal S1, normal S2 and + murmur (Grade 2/6 systolic, no diastolic); no gallop Palpation: normal PMI Vessels: normal carotid upstroke and radial pulses present; no JVD and no carotid bruit Extremities: + edema (Less pronounced with 1-2+ lower extremity edema) Gastrointestinal (Abdomen): normal bowel sounds, soft, nontender, no hepatosplenomegaly Musculoskeletal: no cyanosis or clubbing, extremities motor strength 5/5 Skin: no rashes, warm and dry Neurologic: PERRL, EOMI, accommodation nl, no face palsy, no dysarthria Psychiatric: A+Ox3, euthymic affect Results & Data Vital Signs (Past 12 Hours) Vital Signs Temp Pulse Pulse Pulse Resp BP BP 05/02/19 15:32 36.7 C 79 20 118/69 05/02/19 14:39 36.6 C 73 129/71 05/02/19 13:06 36.6 C 81 18 150/72 H 05/02/19 12:00 76 129/71 05/02/19 11:40 76 128/71 05/02/19 11:20 76 121/68 05/02/19 11:00 77 126/68 05/02/19 10:40 76 114/93 05/02/19 10:20 75 117/70 05/02/19 10:00 74 103/62 05/02/19 09:40 75 124/66 05/02/19 09:27 37.0 C 82 05/02/19 07:40 36.9 C 85 20 110/66 Pulse Ox 05/02/19 15:32 95 05/02/19 14:39 05/02/19 13:06 91 05/02/19 12:00 05/02/19 11:40 05/02/19 11:20 05/02/19 11:00 05/02/19 10:40 05/02/19 10:20 05/02/19 10:00 05/02/19 09:40 05/02/19 09:27 05/02/19 07:40 92 Laboratory Results Laboratory Results - last 24 hr 05/01/19 05/01/19 05/01/19 05:16 16:35 20:11 WBC RBC Hgb Hct MCV MCH MCHC RDW Std Deviation RDW Coeff of Elvia Plt Count MPV Immature Gran % (Auto) Neut % (Auto) Lymph % (Auto) Mcintosh % (Auto) Eos % (Auto) Baso % (Auto) Immature Gran # (Auto) Neut # (Auto) Lymph # (Auto) Mcintosh # (Auto) Eos # (Auto) Baso # (Auto) Macrocytosis Spherocytes ESR PT INR APTT PTT Ratio Sodium Potassium Chloride Carbon Dioxide Anion Gap BUN Creatinine Est Cr Clr Drug Dosing Est GFR ( Amer) Est GFR (Non-Af Amer) BUN/Creatinine Ratio Glucose POC Glucose 154 H 126 H Calcium C-Reactive Protein Random Vancomycin Bld Cult Staph aureus PCR Positive A Blood Culture MRSA PCR Negative 05/01/19 05/01/19 05/01/19 21:00 21:00 22:10 WBC RBC Hgb Hct MCV MCH MCHC RDW Std Deviation RDW Coeff of Elvia Plt Count MPV Immature Gran % (Auto) Neut % (Auto) Lymph % (Auto) Mcintosh % (Auto) Eos % (Auto) Baso % (Auto) Immature Gran # (Auto) Neut # (Auto) Lymph # (Auto) Mcintosh # (Auto) Eos # (Auto) Baso # (Auto) Macrocytosis Spherocytes ESR 84 H PT INR APTT 120.0 H* PTT Ratio 4.4 Sodium Potassium Chloride Carbon Dioxide Anion Gap BUN Creatinine Est Cr Clr Drug Dosing Est GFR ( Amer) Est GFR (Non-Af Amer) BUN/Creatinine Ratio Glucose POC Glucose Calcium C-Reactive Protein 19.50 H Random Vancomycin Bld Cult Staph aureus PCR Blood Culture MRSA PCR 05/02/19 05/02/19 05/02/19 05:40 05:40 05:40 WBC 18.24 H RBC 2.47 L Hgb 9.0 L Hct 28.3 L MCV 114.6 H MCH 36.4 H MCHC 31.8 L RDW Std Deviation 64.5 H RDW Coeff of Elvia 15.7 H Plt Count 119 L MPV 11.8 H Immature Gran % (Auto) 0.5 Neut % (Auto) 91.6 Lymph % (Auto) 3.9 Mcintosh % (Auto) 3.9 Eos % (Auto) 0.0 Baso % (Auto) 0.1 Immature Gran # (Auto) 0.10 H Neut # (Auto) 16.69 H Lymph # (Auto) 0.71 L Mcintosh # (Auto) 0.72 H Eos # (Auto) 0.00 Baso # (Auto) 0.02 Macrocytosis Present Spherocytes Occasional ESR 68 H PT INR APTT PTT Ratio Sodium 134 L Potassium 5.2 H Chloride 95 L Carbon Dioxide 30 Anion Gap 9.0 BUN 29 H Creatinine 4.78 H* D Est Cr Clr Drug Dosing 12.9 Est GFR ( Amer) 12.0 Est GFR (Non-Af Amer) 10.4 BUN/Creatinine Ratio 6.3 L Glucose 187 H POC Glucose Calcium 7.9 L C-Reactive Protein 22.60 H Random Vancomycin Bld Cult Staph aureus PCR Blood Culture MRSA PCR 05/02/19 05/02/19 05/02/19 05:40 07:40 08:08 WBC RBC Hgb Hct MCV MCH MCHC RDW Std Deviation RDW Coeff of Elvia Plt Count MPV Immature Gran % (Auto) Neut % (Auto) Lymph % (Auto) Mcintosh % (Auto) Eos % (Auto) Baso % (Auto) Immature Gran # (Auto) Neut # (Auto) Lymph # (Auto) Mcintosh # (Auto) Eos # (Auto) Baso # (Auto) Macrocytosis Spherocytes ESR PT 13.4 H INR 1.3 H APTT 98.8 H* PTT Ratio 3.6 Sodium Potassium Chloride Carbon Dioxide Anion Gap BUN Creatinine Est Cr Clr Drug Dosing Est GFR ( Amer) Est GFR (Non-Af Amer) BUN/Creatinine Ratio Glucose POC Glucose 200 H Calcium C-Reactive Protein Random Vancomycin 31.9 Bld Cult Staph aureus PCR Blood Culture MRSA PCR 05/02/19 05/02/19 13:03 13:31 WBC RBC Hgb Hct MCV MCH MCHC RDW Std Deviation RDW Coeff of Elvia Plt Count MPV Immature Gran % (Auto) Neut % (Auto) Lymph % (Auto) Mcintosh % (Auto) Eos % (Auto) Baso % (Auto) Immature Gran # (Auto) Neut # (Auto) Lymph # (Auto) Mcintosh # (Auto) Eos # (Auto) Baso # (Auto) Macrocytosis Spherocytes ESR PT INR APTT 72.6 H* PTT Ratio 2.7 Sodium Potassium Chloride Carbon Dioxide Anion Gap BUN Creatinine Est Cr Clr Drug Dosing Est GFR ( Amer) Est GFR (Non-Af Amer) BUN/Creatinine Ratio Glucose POC Glucose 163 H Calcium C-Reactive Protein Random Vancomycin Bld Cult Staph aureus PCR Blood Culture MRSA PCR (1) Acute CHF Heart failure type: unspecified Qualified Code(s): I50.9 - Heart failure, unspecified (2) Leukocytosis Leukocytosis type: unspecified Qualified Code(s): D72.829 - Elevated white blood cell count, unspecified
--- NOTE | 2019-05-02 18:11 | Hospitalist Progress Note ---
Date of Service May 02, 2019 Assessment & Plan (1) Gram-positive cocci in clusters: Blood cx positive for gram positive cocci Received IV Vanco ECHO showed no vegetation MRSA PCR negative, will change abx to recephin Will repeat blood cx ID consult (2) Left-sided chest pain: Atypical chest pain with reproducible pain Mostly due to musculoskeletal Troponin x 3 negative EKG showed no ischemic changes ECHO showed no wall motion abnormality Cardiology on board (3) Acute hypoxemic respiratory failure: Oxygen on admission dropped in the 87's Missed Hemodialysis CTA chest showed no evidence of pulmonary embolus. Components of congestive failure with small bilateral pleural effusions. has been dialysis Clinically improves (4) PMR (polymyalgia rheumatica): ACS was ruled out and chest discomfort is very atypical for this presentation. There is significant tenderness to palpation. Continue prednisone 20mg daily. Pain improves (5) ESRD (end stage renal disease) on dialysis: Nephro on board had HD today Plan to HD today (6) Type 2 diabetes mellitus: controlled cont ISS and carb coverage. Monitor BS Hx DVT and PE Continue heparin drip since INR subtheurapeutic Continue coumadin with INR 1.8 today (7) DVT prophylaxis: heparin drip Full Code Dispo Continue monitor Subjective Pt was seen and examined Sitting in chair with no distress with daughter and at bedside Pt said that he feels much better He said that his strength improves He said that his left side chest and shoulder pain improves significantly Denies any fever, palpitation, dizziness and SOB Physical Exam Physical Exam: General- No acute distress Head- atraumatic Eyes- PERRL, EOMI, ENT- oropharynx clear Neck- supple, no JVD Lungs- +diminished BS Heart- regular rhythm; +murmur Abdomen- normal bowel sounds, soft, nontender Extremities- no calf tenderness, +edema Neuro- alert, oriented x 3; PERRL, EOMI; no facial palsy; no dysarthria Skin- warm & dry Results & Data Vital Signs (Past 12 Hours) Vital Signs Temp Pulse Pulse Pulse Resp BP BP 05/02/19 15:32 36.7 C 79 20 118/69 05/02/19 14:39 36.6 C 73 129/71 05/02/19 13:06 36.6 C 81 18 150/72 H 05/02/19 12:00 76 129/71 05/02/19 11:40 76 128/71 05/02/19 11:20 76 121/68 05/02/19 11:00 77 126/68 05/02/19 10:40 76 114/93 05/02/19 10:20 75 117/70 05/02/19 10:00 74 103/62 05/02/19 09:40 75 124/66 05/02/19 09:27 37.0 C 82 05/02/19 07:40 36.9 C 85 20 110/66 Pulse Ox 05/02/19 15:32 95 05/02/19 14:39 05/02/19 13:06 91 05/02/19 12:00 05/02/19 11:40 05/02/19 11:20 05/02/19 11:00 05/02/19 10:40 05/02/19 10:20 05/02/19 10:00 05/02/19 09:40 05/02/19 09:27 05/02/19 07:40 92
[2019-05-02 21:08] LABS: Partial Thromboplastin Time 54.9 Seconds (21.0-31.0)
[2019-05-03] MEDS: SEVELAMER HCL 800 MG TABLET PO SCH ×3 (06:27→15:17)
[2019-05-03 07:24] LABS: Partial Thromboplastin Ratio 2.5
--- NOTE | 2019-05-03 07:34 | Infectious Disease Consult ---
Date of Consultation May 03, 2019 Assessment & Plan (1) Gram positive sepsis: can change to dapto q48 hours pending additional micro data, repeat blood cultures pending, echo negative for veg. will follow, further abx recs based on additional culture data. History of Present Illness Attending Physician: Mariusz Gonzalez MD pt admitted with sob, missed HD recently due to diarrhea. On my exam today he is feeling significantly better. OOB to chair, denies diarrhea curretnly. no n/v/abd pain, no f/c. In ER blood cultures were obtained due to elevated wbc 20, now growing gpc in 1/2 sets, repeat pending. Echo negative for veg. Placed on 1 time dose of vanco, tolerated well. vanco level done yesterday was 31.9. wbc today is 18, creat today 4.9. Denies cp, sob, cough. no gu symptoms. tolerating abx. Allergies Allergy/AdvReac Type Severity Reaction Status Date / Time aspirin Allergy Unknown . Verified 05/01/19 04:33 salicylates Allergy Unknown UNKNOWN Verified 05/01/19 04:33 Home Medications Home Medications Medication Instructions Recorded Confirmed Type Terra Bella-3 1 tab PO DAILY 06/14/18 05/01/19 History acetaminophen [Tylenol Extra 500 mg PO Q6H PRN 06/14/18 05/01/19 History Strength] carvedilol [Coreg] 12.5 mg PO BID 06/14/18 05/01/19 History cholecalciferol (vitamin D3) 1,000 unit PO DAILY 06/14/18 05/01/19 History [Vitamin D3] omeprazole 20 mg PO DAILY 06/14/18 05/01/19 History sevelamer carbonate [Renvela] 1,600 mg PO DAILYBD 06/14/18 05/01/19 History warfarin [Coumadin] 5 mg PO SUTUTHSA 06/14/18 05/01/19 History Sherlye-Neeraj 1 tab PO DAILY 03/18/19 05/01/19 History docusate sodium 100 mg PO BID PRN 03/18/19 05/01/19 History fluticasone propionate [Flonase 1 spray INTRANASAL DAILY PRN 03/18/19 05/01/19 History Allergy Relief] lidocaine-prilocaine 1 applic TOPICAL UD 03/18/19 05/01/19 History sevelamer carbonate 800 mg PO DAILYBB 03/18/19 05/01/19 History sevelamer carbonate [Renvela] 800 mg PO DAILYBL 03/18/19 05/01/19 History vitamin B complex 1 tab PO DAILY 03/18/19 05/01/19 History warfarin [Coumadin] 2.5 mg PO MOWEFR 03/18/19 05/01/19 History ranitidine HCl 150 mg PO Q12H PRN #30 cap 03/19/19 05/01/19 Rx Patient History Medical History GERD (gastroesophageal reflux disease) (Chronic) ESRD (end stage renal disease) on dialysis (Chronic) Dyslipidemia (Chronic) HTN (hypertension) (Chronic) Type 2 diabetes mellitus (Chronic) Pulmonary embolus (Chronic) Aortic valve insufficiency (Chronic) DVT (deep venous thrombosis) (Chronic) " 01/13/09 left leg " 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) "01/27/09, OD " Atrial flutter (Chronic) Anemia (Chronic) Surgical History S/P ablation of atrial flutter (Chronic) History of total hip replacement (Chronic) History of hydrocelectomy (Chronic) H/O superior vena cava filter placement (Chronic) H/O removal of testicle (Chronic) H/O carotid endarterectomy (Chronic) "2008" S/P aortic valve replacement (Chronic) "bio prosthetic" S/P cardiac cath (Chronic) "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 Feels Safe at Home: Yes Safety Concerns: Feels Safe At This Time Smoking Status: Former smoker Second Hand Exposure: No ; Hx Alcohol Use: Yes (history only; no current use) Hx Substance Use: No Review of Systems Review of Systems: All systems reviewed & are unremarkable except as noted in HPI & below Physical Exam Constitutional: WD/WN, vitals as above Eyes: PERRL, conjunctivae normal, anicteric sclerae ENMT: external ear and nose normal, oropharynx normal Neck: normal visual inspection Respiratory: normal respiratory effort, lungs clear to auscultation Cardiovascular: RRR, no murmur, no edema Gastrointestinal (Abdomen): normal bowel sounds, soft, nontender, no hepatosplenomegaly Musculoskeletal: no cyanosis or clubbing, extremities motor strength 5/5 Skin: no rashes, warm and dry Psychiatric: A+Ox3, euthymic affect Results & Data Vital Signs (Past 12 Hours) Vital Signs Temp Pulse Pulse Resp BP Pulse Ox 05/03/19 04:24 36.6 C 69 20 121/72 93 05/03/19 00:20 85 05/02/19 22:37 36.5 C 75 18 122/68 92 Laboratory Results Microbiology 05/01/19 05:16 Blood Aerobic Blood Culture - Preliminary No growth in Aerobic bottle after 48 hours. 05/01/19 05:16 Blood Anaerobic Blood Culture - Preliminary No growth in Anaerobic bottle after 48 hours. 05/01/19 05:16 Blood Aerobic Blood Culture - Preliminary Gram positive cocci clusters 05/01/19 05:16 Blood Anaerobic Blood Culture - Preliminary Gram positive cocci clusters PG Care Time/CCT Total # of Minutes Spent Total Time Spent with Patient: Total time spent is greater than 50% in coordination of care (as documented) at patient's floor/unit and/or counseling patient:
[2019-05-03] MEDS ORDERED: SODIUM CHLORIDE 0.9% 1000ML 1,000 ML IV PRN (07:53)
[2019-05-03] MEDS: predniSONE 20 MG TAB PO SCH (08:00)
[2019-05-03] MEDS: VITAMIN B COMPLEX TAB PO SCH (08:00)
[2019-05-03] MEDS: CHOLECALCIFEROL 1,000 UNITS TAB PO SCH (08:00)
[2019-05-03] MEDS: INSULIN GLARGINE SOLOSTAR 100 UNITS/ML 3 ML PEN SC SCH ×2 (08:01→21:07)
[2019-05-03] MEDS: PANTOprazole 40 MG TAB PO SCH (08:01)
[2019-05-03] MEDS: CARVEDILOL 12.5 MG TAB PO SCH (08:01)
[2019-05-03] MEDS: INSULIN ASPART 100 UNITS/ML 3 ML PEN SC SCH ×4 (08:04→21:08)
[2019-05-03] MEDS: DAPTOmycin 400 MG in SYRINGE 0 ML IV SCH (08:04)
[2019-05-03] MEDS ORDERED: EPOETIN ALFA 4,000 UNIT/ML VIAL IV SCH (08:30)
[2019-05-03 08:51] LABS: INR 1.5 (0.9-1.1); Prothrombin Time 14.6 Seconds (9.0-12.0)
[2019-05-03 09:04] LABS: Calcium 8.6 mg/dl (8.5-10.1); Creatinine Clr Calc Pharmacy 12.2 ml/min; Est GFR (African American) 11.4; Est GFR (Non-African American) 9.8; Potassium 4.7 mmol/L (3.5-5.1)
[2019-05-03 09:21] LABS: Hematocrit (blood only) 27.1 % (42-52); Hemoglobin 8.9 g/dL (14.0-18.0); Mean Corpuscular Hgb Conc 32.8 g/dL (32-36); Mean Corpuscular Volume 113.4 fL (80-100); Platelet Count 127 K/uL (130-400); RDW Coefficient of Variation 15.4 % (11.5-14.5); RDW Standard Deviation 62.7 fL (36.4-46.3); Red Blood Count 2.39 M/uL (4.7-6.1); White Blood Count 15.94 K/uL (4.8-10.8)
[2019-05-03 09:22] LABS: Platelet Estimate Normal (Normal)
[2019-05-03] MEDS: Heparin Adult STANDARD Wt-Based Dextrose 5% 25,000 units/500 mL IV SCH (13:07)
[2019-05-03 15:03] LABS: Partial Thromboplastin Time 54.9 Seconds (21.0-31.0)
[2019-05-03] MEDS: WARFARIN SOD 5 MG TAB PO SCH (15:17)
--- NOTE | 2019-05-03 17:00 | Nephrology Progress Note ---
Date of Service May 03, 2019 Assessment & Plan (1) ESRD (end stage renal disease) on dialysis: HD today routine tx w/ goal 2.5LUF as tolerated. he does not look floridly volume overloaded though he certainly has some fluid on board on his CT chest. Next HD on 05/06, or consider 05/05 if still inhouse d/t volume issues. his L chest pain is of suspected from PMR though now w/ bacteremia ? 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: moderate dose epo w/ HD q48hrs min in house (3) Renal lesion: noted at previous admission past 6 wks >> for OP f/u (4) Gram positive sepsis: inf dzs following; changed vanco to daptomycin Present on Admission?: Yes Subjective seen on rounds 0900; youngest daughter at bedside; 2/4 blood cxs positive from admissionion [facility] and pt started on abtx; feels much improved; still some more edema than usual; no sob, no n/v, no further chest pain Review of Systems Review of Systems: All systems reviewed & are unremarkable except as noted in HPI & below Physical Exam Constitutional: well developed, well nourished and + obese sitting up in chair on RA Eyes: EOM intact bilaterally ENMT: Ears: no external ear abnormality Nose: no external nose abnormality Mouth: + dry oral mucous membranes Neck: no nuchal rigidity Respiratory: normal respiratory effort Auscultation: + diminished lung sounds Cardiovascular: Rate/Rhythm: regular rate and regular rhythm Heart Sounds: + murmur Extremities: + edema (2+ pedal edema, trace pretibial) and + AV fistula Gastrointestinal (Abdomen): Inspection/Auscultation: normal bowel sounds Percussion/Palpation: abdomen soft; abdomen nontender Musculoskeletal: Extremities: strength 5/5 throughout Skin: no rashes, warm and dry Neurologic: uribe, fluent speech, no tremor Psychiatric: Orientation: alert and oriented x 3 Eye Contact: good eye contact Speech: normal rate/rhythm/volume of speech Affect: + flat affect Insight: good insight Judgement: good judgement Results & Data Vital Signs (Past 12 Hours) Vital Signs Temp Pulse Pulse Pulse Resp BP Pulse Ox 05/03/19 14:52 36.6 C 72 18 123/72 94 05/03/19 11:14 36.5 C 72 20 123/71 96 05/03/19 08:00 78 05/03/19 07:52 36.7 C 83 18 131/76 92 Laboratory Results Abnormal lab results 05/02/19 05/02/19 05/03/19 Range/Units 20:22 20:23 06:20 WBC (4.8-10.8) K/uL RBC (4.7-6.1) M/uL Hgb (14.0-18.0) g/dL Hct (42-52) % MCV (80-100) fL MCH (25-34) pg RDW Std Deviation (36.4-46.3) fL RDW Coeff of Elvia (11.5-14.5) % Plt Count (130-400) K/uL MPV (7.4-10.4) fL PT (9.0-12.0) Seconds INR (0.9-1.1) APTT 54.9 H* 68.0 H* (21.0-31.0) Seconds Sodium (136-145) mmol/L Chloride (98-107) mmol/L BUN (7-18) mg/dl Creatinine (0.6-1.4) mg/dl BUN/Creatinine Ratio (10-20) Glucose (70-99) mg/dl POC Glucose 152 H (70-99) 05/03/19 05/03/19 05/03/19 Range/Units 06:20 06:20 06:20 WBC 15.94 H (4.8-10.8) K/uL RBC 2.39 L (4.7-6.1) M/uL Hgb 8.9 L (14.0-18.0) g/dL Hct 27.1 L (42-52) % MCV 113.4 H (80-100) fL MCH 37.2 H (25-34) pg RDW Std Deviation 62.7 H (36.4-46.3) fL RDW Coeff of Elvia 15.4 H (11.5-14.5) % Plt Count 127 L (130-400) K/uL MPV 12.0 H (7.4-10.4) fL PT 14.6 H (9.0-12.0) Seconds INR 1.5 H (0.9-1.1) APTT (21.0-31.0) Seconds Sodium 135 L (136-145) mmol/L Chloride 97 L (98-107) mmol/L BUN 40 H (7-18) mg/dl Creatinine 5.00 H* (0.6-1.4) mg/dl BUN/Creatinine Ratio 8.0 L (10-20) Glucose 129 H (70-99) mg/dl POC Glucose (70-99) 05/03/19 05/03/19 05/03/19 Range/Units 07:29 11:26 14:14 WBC (4.8-10.8) K/uL RBC (4.7-6.1) M/uL Hgb (14.0-18.0) g/dL Hct (42-52) % MCV (80-100) fL MCH (25-34) pg RDW Std Deviation (36.4-46.3) fL RDW Coeff of Elvia (11.5-14.5) % Plt Count (130-400) K/uL MPV (7.4-10.4) fL PT (9.0-12.0) Seconds INR (0.9-1.1) APTT 54.9 H* (21.0-31.0) Seconds Sodium (136-145) mmol/L Chloride (98-107) mmol/L BUN (7-18) mg/dl Creatinine (0.6-1.4) mg/dl BUN/Creatinine Ratio (10-20) Glucose (70-99) mg/dl POC Glucose 137 H 137 H (70-99) 05/03/19 Range/Units 16:24 WBC (4.8-10.8) K/uL RBC (4.7-6.1) M/uL Hgb (14.0-18.0) g/dL Hct (42-52) % MCV (80-100) fL MCH (25-34) pg RDW Std Deviation (36.4-46.3) fL RDW Coeff of Elvia (11.5-14.5) % Plt Count (130-400) K/uL MPV (7.4-10.4) fL PT (9.0-12.0) Seconds INR (0.9-1.1) APTT (21.0-31.0) Seconds Sodium (136-145) mmol/L Chloride (98-107) mmol/L BUN (7-18) mg/dl Creatinine (0.6-1.4) mg/dl BUN/Creatinine Ratio (10-20) Glucose (70-99) mg/dl POC Glucose 145 H (70-99)
--- NOTE | 2019-05-03 17:55 | Hospitalist Progress Note ---
Date of Service May 03, 2019 Assessment & Plan (1) Gram-positive cocci in clusters: Blood cx positive for gram positive cocci Received IV Vanco then changed to Rocephin ECHO showed no vegetation WBC trending down to 15K MRSA PCR negative ID on board changed Vanco to dapto Repeat blood cx pending Continue monitor (2) Left-sided chest pain: Atypical chest pain with reproducible pain Mostly due to musculoskeletal Troponin x 3 negative EKG showed no ischemic changes ECHO showed no wall motion abnormality Cardiology on board Pain resolved (3) Acute hypoxemic respiratory failure: Oxygen on admission dropped in the 's Missed Hemodialysis CTA chest showed no evidence of pulmonary embolus. Components of congestive failure with small bilateral pleural effusions. has been dialysis Saturated very well Clinically improves (4) PMR (polymyalgia rheumatica): ACS was ruled out and chest discomfort is very atypical for this presentation. Significant tenderness to palpation on admission Will taper prednisone to 10mg daily Pain resolved (5) ESRD (end stage renal disease) on dialysis: Nephro on board Had HD today Next HD plan to 05/05 or 05/06 Continue monitor (6) Type 2 diabetes mellitus: controlled cont ISS and carb coverage. Monitor BS Hx DVT and PE Continue heparin drip since INR subtheurapeutic Continue coumadin with INR 1.5 today (7) DVT prophylaxis: heparin drip/coumadin Full Code Dispo Continue monitor Subjective Pt was seen and examined Sitting in chair with no distress Pt said that he feels much better He said that he does not have any pain in his left sided chest and left shoulder area He said that he feels that his back to his baseline Denies any chest pain, palpitation, dizziness and SOB Physical Exam Physical Exam: General- No acute distress Head- atraumatic Eyes- PERRL, EOMI, ENT- oropharynx clear Neck- supple, no JVD Lungs- +diminished BS Heart- regular rhythm; +murmur Abdomen- normal bowel sounds, soft, nontender Extremities- no calf tenderness, +edema Neuro- alert, oriented x 3; PERRL, EOMI; no facial palsy; no dysarthria Skin- warm & dry Results & Data Vital Signs (Past 12 Hours) Vital Signs Temp Pulse Pulse Pulse Resp BP Pulse Ox 05/03/19 14:52 36.6 C 72 18 123/72 94 05/03/19 11:14 36.5 C 72 20 123/71 96 08/03/19 08:00 78 05/03/19 07:52 36.7 C 83 18 131/76 92
[2019-05-04] MEDS: CARVEDILOL 12.5 MG TAB PO SCH ×3 (00:31→19:58)
[2019-05-04 05:51] LABS: Hematocrit (blood only) 26.4 % (42-52); Hemoglobin 8.7 g/dL (14.0-18.0); Mean Corpuscular Volume 111.4 fL (80-100); Mean Platelet Volume 11.6 fL (7.4-10.4); Platelet Count 119 K/uL (130-400); RDW Coefficient of Variation 15.7 % (11.5-14.5); RDW Standard Deviation 62.5 fL (36.4-46.3); Red Blood Count 2.37 M/uL (4.7-6.1)
[2019-05-04 06:14] LABS: INR 1.8 (0.9-1.1); Partial Thromboplastin Ratio 2.3; Prothrombin Time 18.1 Seconds (9.0-12.0)
[2019-05-04 06:15] LABS: Partial Thromboplastin Time 61.8 Seconds (21.0-31.0)
[2019-05-04] MEDS: SEVELAMER HCL 800 MG TABLET PO SCH ×3 (06:23→17:02)
[2019-05-04 06:31] LABS: BUN Creatinine Ratio 7.6 (10-20); Creatinine Clr Calc Pharmacy 14.2 ml/min; Est GFR (African American) 13.7; Est GFR (Non-African American) 11.8; Potassium 3.8 mmol/L (3.5-5.1)
[2019-05-04] MEDS: Heparin Adult STANDARD Wt-Based Dextrose 5% 25,000 units/500 mL IV SCH (08:19)
[2019-05-04] MEDS: INSULIN ASPART 100 UNITS/ML 3 ML PEN SC SCH ×4 (08:20→20:02)
[2019-05-04] MEDS: INSULIN GLARGINE SOLOSTAR 100 UNITS/ML 3 ML PEN SC SCH ×2 (08:20→20:03)
[2019-05-04] MEDS: predniSONE 10 MG TABLET PO SCH (08:21)
[2019-05-04] MEDS: VITAMIN B COMPLEX TAB PO SCH (08:21)
[2019-05-04] MEDS: CHOLECALCIFEROL 1,000 UNITS TAB PO SCH (08:21)
[2019-05-04] MEDS: PANTOprazole 40 MG TAB PO SCH (08:21)
[2019-05-04] MEDS ORDERED: COUGH DROP (SUGAR FREE) LOZ 24 LOZ/1 BOX BUCCAL PRN (11:03)
[2019-05-04] MEDS ORDERED: COUGH DROP (SUGAR FREE) LOZ 24 LOZ/1 BOX BUCCAL ONE (11:05)
[2019-05-04] MEDS ORDERED: LEVALBUTEROL HCL 0.63 MG/3 ML NEB NEB ONE (15:10)
--- NOTE | 2019-05-04 15:20 | Hospitalist Progress Note ---
Date of Service May 04, 2019 Assessment & Plan (1) Gram-positive cocci in clusters: Blood cx positive for gram positive cocci Received IV Vanco then changed to Rocephin ECHO showed no vegetation WBC continue trending down to 11K MRSA PCR negative ID on board changed Vanco to dapto q48h Repeat blood cx no growth so far Will discuss with ID about abx on discharge Continue monitor (2) Left-sided chest pain: Atypical chest pain with reproducible pain Mostly due to musculoskeletal Troponin x 3 negative EKG showed no ischemic changes ECHO showed no wall motion abnormality Cardiology on board Pain resolved (3) Acute hypoxemic respiratory failure: Oxygen on admission dropped in the 's Missed Hemodialysis CTA chest showed no evidence of pulmonary embolus. Components of congestive failure with small bilateral pleural effusions. has been dialysis Saturated very well Clinically improves (4) PMR (polymyalgia rheumatica): ACS was ruled out and chest discomfort is very atypical for this presentation. Significant tenderness to palpation on admission Continue prednisone 10mg daily Pain resolved (5) ESRD (end stage renal disease) on dialysis: Nephro on board Had HD today Next HD plan to 05/05 or 05/06 Continue monitor (6) Type 2 diabetes mellitus: controlled cont ISS and carb coverage. Monitor BS Hx DVT and PE Continue heparin drip since INR subtheurapeutic Continue coumadin with INR 1.7 today (7) DVT prophylaxis: heparin drip/coumadin Full Code Dispo Continue monitor Subjective Pt was seen and examined Sitting in chair with no distress with daughter present Pt said that he is tired this morning because he only had 2 hr sleep he said that he was up until 3AM for HD He said that he does feel a phlegm on his throat that caused him to cough alot this morning Denies any chest pain, palpitation, dizziness and SOB Physical Exam Physical Exam: General- No acute distress Head- atraumatic Eyes- PERRL, EOMI, ENT- oropharynx clear Neck- supple, no JVD Lungs- +diminished BS Heart- regular rhythm; +murmur Abdomen- normal bowel sounds, soft, nontender Extremities- no calf tenderness, +edema Neuro- alert, oriented x 3; PERRL, EOMI; no facial palsy; no dysarthria Skin- warm & dry Results & Data Vital Signs (Past 12 Hours) Vital Signs Temp Pulse Resp BP Pulse Ox 05/04/19 15:00 36.7 C 104 H 20 110/69 93 05/04/19 11:30 36.9 C 79 18 137/75 96 05/04/19 08:00 36.5 C 73 20 122/67 97 05/04/19 04:08 36.4 C L 73 20 116/65 96
[2019-05-04] MEDS: WARFARIN SOD 5 MG TAB PO SCH (16:24)
[2019-05-04] MEDS: SIMETHICONE 80 MG CHEW PO PRN (19:59)
[2019-05-05] MEDS: Heparin Adult STANDARD Wt-Based Dextrose 5% 25,000 units/500 mL IV SCH (01:29)
[2019-05-05] MEDS ORDERED: Nursing to Pharmacy Communication ONE (05:13)
[2019-05-05 06:42] LABS: Partial Thromboplastin Ratio 2.4
[2019-05-05 06:45] LABS: Partial Thromboplastin Time 64.2 Seconds (21.0-31.0)
[2019-05-05] MEDS: CHOLECALCIFEROL 1,000 UNITS TAB PO SCH (07:54)
[2019-05-05] MEDS: predniSONE 10 MG TABLET PO SCH (07:54)
[2019-05-05] MEDS: VITAMIN B COMPLEX TAB PO SCH (07:54)
[2019-05-05] MEDS: PANTOprazole 40 MG TAB PO SCH (07:54)
[2019-05-05] MEDS: SEVELAMER HCL 800 MG TABLET PO SCH ×3 (07:54→16:03)
[2019-05-05] MEDS: INSULIN GLARGINE SOLOSTAR 100 UNITS/ML 3 ML PEN SC SCH ×2 (07:54→20:18)
[2019-05-05] MEDS: CARVEDILOL 12.5 MG TAB PO SCH ×2 (07:55→20:14)
[2019-05-05] MEDS: INSULIN ASPART 100 UNITS/ML 3 ML PEN SC SCH ×4 (07:55→20:18)
[2019-05-05] MEDS: DAPTOmycin 400 MG in SYRINGE 0 ML IV SCH (07:56)
[2019-05-05 08:27] LABS: INR 2.4 (0.9-1.1)
[2019-05-05 09:11] LABS: Hematocrit (blood only) 27.8 % (42-52); Hemoglobin 9.2 g/dL (14.0-18.0); Mean Corpuscular Hgb Conc 33.1 g/dL (32-36); Mean Corpuscular Volume 110.3 fL (80-100); Mean Platelet Volume 11.9 fL (7.4-10.4); Platelet Count 145 K/uL (130-400); RDW Coefficient of Variation 15.7 % (11.5-14.5); RDW Standard Deviation 62.4 fL (36.4-46.3); Red Blood Count 2.52 M/uL (4.7-6.1); White Blood Count 14.42 K/uL (4.8-10.8)
--- NOTE | 2019-05-05 10:51 | Infectious Disease Progress Nt ---
Date of Service May 05, 2019 Assessment & Plan (1) Gram positive sepsis: will change to rocephin 2g IV daily. repeat cultures negative, echo negative, would give min 14 days abx. Subjective oob to chair, overall feeling better but states he is fatigued today. no f/c. remains on IV abx and is tolerating well. Blood cultures growing MSSA, repeat cultures negative, echo negative for veg. no abd pain, no n/v/d. no cp,sob, cough. no pain at HD fistula. Review of Systems Review of Systems: All systems reviewed & are unremarkable except as noted in HPI & below Physical Exam Constitutional: WD/WN, vitals as above Eyes: PERRL, conjunctivae normal, anicteric sclerae ENMT: external ear and nose normal, oropharynx normal Neck: normal visual inspection Respiratory: normal respiratory effort, lungs clear to auscultation Cardiovascular: RRR, no murmur, no edema Gastrointestinal (Abdomen): normal bowel sounds, soft, nontender, no hepatosplenomegaly Musculoskeletal: no cyanosis or clubbing, extremities motor strength 5/5 Skin: no rashes, warm and dry lue av fistula c/d/i, no erythema, no warmth, non tender, dressing intact Psychiatric: A+Ox3, euthymic affect Results & Data Vital Signs (Past 12 Hours) Vital Signs Temp Pulse Resp BP Pulse Ox 05/05/19 07:04 37 C 76 16 128/66 94 05/05/19 04:19 36.8 C 89 20 144/75 H 96 05/04/19 23:00 36.6 C 76 20 117/65 95 Laboratory Results Microbiology 05/02/19 20:29 Blood Aerobic Blood Culture - Preliminary No growth in Aerobic bottle after 48 hours. 05/02/19 20:29 Blood Anaerobic Blood Culture - Final 05/02/19 20:21 Blood Aerobic Blood Culture - Preliminary No growth in Aerobic bottle after 48 hours. 05/02/19 20:21 Blood Anaerobic Blood Culture - Preliminary No growth in Anaerobic bottle after 48 hours. 05/01/19 05:16 Blood Aerobic Blood Culture - Final Staphylococcus aureus 05/01/19 05:16 Blood Anaerobic Blood Culture - Final Staphylococcus aureus 05/01/19 05:16 Blood Aerobic Blood Culture - Preliminary No growth in Aerobic bottle after 48 hours. 05/01/19 05:16 Blood Anaerobic Blood Culture - Preliminary No growth in Anaerobic bottle after 48 hours. PG Care Time/CCT Total # of Minutes Spent Total Time Spent with Patient: Total time spent is greater than 50% in coordination of care (as documented) at patient's floor/unit and/or counseling patient:
[2019-05-05] MEDS: SIMETHICONE 80 MG CHEW PO PRN (12:30)
--- NOTE | 2019-05-05 14:57 | Hospitalist Progress Note ---
Date of Service May 05, 2019 Assessment & Plan (1) Gram-positive cocci in clusters: Blood cx positive for gram positive cocci Received IV Vanco then changed to Rocephin ECHO showed no vegetation WBC 11K today MRSA PCR negative Received IV Vanco, then IV apto q48h ID on board recommended to transition to Rocephin IV 2g for 14 days Repeat blood cx no growth so far Continue monitor Refused to get the U/S guided peripheral IV today since he is not feel well currently Will place access tomorrow (2) Left-sided chest pain: Atypical chest pain with reproducible pain Mostly due to musculoskeletal Troponin x 3 negative EKG showed no ischemic changes ECHO showed no wall motion abnormality Cardiology on board Pain resolved (3) Acute hypoxemic respiratory failure: Oxygen on admission dropped in the ' Missed Hemodialysis CTA chest showed no evidence of pulmonary embolus. Components of congestive failure with small bilateral pleural effusions. has been dialysis Saturated very well Clinically improves resoloved (4) PMR (polymyalgia rheumatica): ACS was ruled out and chest discomfort is very atypical for this presentation. Significant tenderness to palpation on admission Continue prednisone 10mg daily Pain resolved (5) ESRD (end stage renal disease) on dialysis: Nephro on board Had HD today Next HD plan for tomorrow Continue monitor (6) Type 2 diabetes mellitus: controlled cont ISS and carb coverage. Monitor BS Hx DVT and PE Continue coumadin with INR 2.4 today Will d/c heparin drip (7) DVT prophylaxis: on coumadin with INR 2.4 Full Code Dispo Discharge home tomorrow Subjective Pt was seen and examined Sitting in chair with no distress Pt said that he was feeling fine this morning, but now he feels nauseated Pt does not want to get the u/s guided peripheral done today Denies any chest pain, palpitation, dizziness and SOB Physical Exam Physical Exam: General- No acute distress Head- atraumatic Eyes- PERRL, EOMI, ENT- oropharynx clear Neck- supple, no JVD Lungs- +diminished BS Heart- regular rhythm; +murmur Abdomen- normal bowel sounds, soft, nontender Extremities- no calf tenderness, +edema Neuro- alert, oriented x 3; PERRL, EOMI; no facial palsy; no dysarthria Skin- warm & dry Results & Data Vital Signs (Past 12 Hours) Vital Signs Temp Pulse Pulse Pulse Resp BP Pulse Ox 05/05/19 12:32 79 120/80 05/05/19 11:47 37.0 C 82 16 102/61 94 05/05/19 11:18 103 H 05/05/19 07:04 37 C 76 16 128/66 94 05/05/19 04:19 36.8 C 89 20 144/75 H 96
[2019-05-05] MEDS: WARFARIN SOD 3 MG TAB PO SCH (16:43)
--- NOTE | 2019-05-05 17:41 | Nephrology Progress Note ---
Date of Service May 05, 2019 Assessment & Plan (1) ESRD (end stage renal disease) on dialysis: Patient with ESRD on dialysis Sunday. Last dialysis was on Sunday. Will do HD tomorrow for 4 hours to get UF of 3 L. 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 He was having dinner at the time of my visit this afternoon. He reports not feeling well today. He was weak with poor appetite. No shortness of breath. Has mild leg edema. Review of Systems Review of Systems: All systems reviewed & are unremarkable except as noted in HPI & below Physical Exam Physical Exam: General exam: Appears comfortable, no acute distress HEENT: Pupils are equal and reactive to light Neck: No JVD, neck is supple trachea is midline Respiratory system: Clear breath sounds bilaterally. Gastrointestinal: Abdomen is soft, non distended, non tender, bowel sounds are present CVS: Regular rate and rhythm. No murmurs, rubs or gallops Musculoskeletal: No joint or muscle tenderness Extremities: Non tender, 1+ edema, peripheral pulses are present Neuro: Oriented, no tremors, no focal neurological deficits Skin: No rashes Results & Data Vital Signs (Past 12 Hours) Vital Signs Temp Pulse Pulse Pulse Resp BP Pulse Ox 05/05/19 17:17 74 05/05/19 15:38 36.3 C L 79 20 114/63 94 05/05/19 12:32 79 120/80 05/05/19 11:47 37.0 C 82 16 102/61 94 05/05/19 11:18 103 H 05/05/19 07:04 37 C 76 16 128/66 94 Laboratory Results Laboratory Results - last 24 hr 05/04/19 05/04/19 05/05/19 19:47 23:10 05:58 WBC RBC Hgb Hct MCV MCH MCHC RDW Std Deviation RDW Coeff of Elvia Plt Count MPV PT INR APTT 64.2 H* PTT Ratio 2.4 POC Glucose 239 H 125 H 05/05/19 05/05/19 05/05/19 05:58 05:58 07:30 WBC 14.42 H RBC 2.52 L Hgb 9.2 L Hct 27.8 L MCV 110.3 H MCH 36.5 H MCHC 33.1 RDW Std Deviation 62.4 H RDW Coeff of Elvia 15.7 H Plt Count 145 MPV 11.9 H PT 23.0 H INR 2.4 H APTT PTT Ratio POC Glucose 75 05/05/19 05/05/19 11:35 17:07 WBC RBC Hgb Hct MCV MCH MCHC RDW Std Deviation RDW Coeff of Elvia Plt Count MPV PT INR APTT PTT Ratio POC Glucose 248 H 128 H
[2019-05-06 06:22] LABS: Hematocrit (blood only) 25.7 % (42-52); Hemoglobin 8.6 g/dL (14.0-18.0); Mean Corpuscular Hgb Conc 33.5 g/dL (32-36); Mean Corpuscular Volume 110.3 fL (80-100); Mean Platelet Volume 11.3 fL (7.4-10.4); Platelet Count 129 K/uL (130-400); RDW Coefficient of Variation 15.8 % (11.5-14.5); RDW Standard Deviation 63.1 fL (36.4-46.3); Red Blood Count 2.33 M/uL (4.7-6.1); White Blood Count 14.26 K/uL (4.8-10.8)
[2019-05-06 06:45] LABS: INR 3.1 (0.9-1.1); Partial Thromboplastin Ratio 1.9; Prothrombin Time 29.3 Seconds (9.0-12.0)
[2019-05-06 06:48] LABS: Partial Thromboplastin Time 52.4 Seconds (21.0-31.0)
[2019-05-06] MEDS ORDERED: EPOETIN ALFA 10,000 UNITS/ML VIAL IV SCH (07:00)
[2019-05-06] MEDS ORDERED: SODIUM CHLORIDE 0.9% 1000ML 1,000 ML IV PRN (07:00)
[2019-05-06] MEDS: INSULIN ASPART 100 UNITS/ML 3 ML PEN SC SCH ×4 (07:13→20:58)
[2019-05-06] MEDS: INSULIN GLARGINE SOLOSTAR 100 UNITS/ML 3 ML PEN SC SCH ×2 (07:13→21:01)
[2019-05-06] MEDS: CARVEDILOL 12.5 MG TAB PO SCH ×2 (07:13→21:00)
[2019-05-06] MEDS: PANTOprazole 40 MG TAB PO SCH (07:14)
[2019-05-06] MEDS: predniSONE 10 MG TABLET PO SCH (07:14)
[2019-05-06] MEDS: CHOLECALCIFEROL 1,000 UNITS TAB PO SCH (07:14)
[2019-05-06] MEDS: SEVELAMER HCL 800 MG TABLET PO SCH ×3 (07:14→16:10)
[2019-05-06] MEDS: VITAMIN B COMPLEX TAB PO SCH (07:14)
[2019-05-06] MEDS: SIMETHICONE 80 MG CHEW PO PRN ×2 (07:15→13:02)
--- NOTE | 2019-05-06 09:51 | Nephrology Progress Note ---
Date of Service May 06, 2019 Assessment & Plan (1) ESRD (end stage renal disease) on dialysis: Patient with ESRD on dialysis Sunday. Patient seen on dialysis. He is tolerating dialysis well today. He is planned for 4-hour dialysis with the target UF of 3 L. If discharged patient to continue outpatient dialysis on . 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 (3) Renal lesion: noted at previous admission past 6 wks >> for OP f/u (4) Gram positive sepsis: inf dzs following; patient receiving Rocephin for 14 days outpatient per ID. Patient will be getting a mid line catheter for home antibiotics Subjective Patient seen and examined while on dialysis. He feels well denies any shortness of breath or weakness. His blood pressure is stable. He has lower extremity swelling. No nausea vomiting or diarrhea. He continues antibiotics for ba cteremia Review of Systems Review of Systems: All systems reviewed & are unremarkable except as noted in HPI & below Physical Exam Physical Exam: General exam: Appears comfortable, no acute distress HEENT: Pupils are equal and reactive to light Neck: No JVD, neck is supple trachea is midline Respiratory system: Clear breath sounds bilaterally. Gastrointestinal: Abdomen is soft, non distended, non tender, bowel sounds are present CVS: Regular rate and rhythm. No murmurs, rubs or gallops Musculoskeletal: No joint or muscle tenderness Extremities: Non tender, no edema, peripheral pulses are present Neuro: Oriented, no tremors, no focal neurological deficits Skin: No rashes Access: Left upper arm AV fistula with good bruit Results & Data Vital Signs (Past 12 Hours) Vital Signs Temp Pulse Pulse Pulse Resp BP BP 05/06/19 09:20 64 127/64 05/06/19 09:00 66 127/64 05/06/19 08:40 73 126/62 05/06/19 08:20 73 126/62 05/06/19 08:01 59 L 127/54 L 05/06/19 07:42 72 140/80 05/06/19 07:35 36.5 C 74 05/06/19 07:33 36.5 C 70 16 121/67 05/06/19 07:26 62 05/06/19 04:02 36.9 C 77 18 120/62 05/06/19 00:00 75 05/05/19 23:35 36.6 C 78 18 136/70 Pulse Ox 05/06/19 09:20 05/06/19 09:00 05/06/19 08:40 05/06/19 08:20 05/06/19 08:01 05/06/19 07:42 05/06/19 07:35 05/06/19 07:33 96 05/06/19 07:26 05/06/19 04:02 95 05/06/19 00:00 05/05/19 23:35 94 Laboratory Results Laboratory Results - last 24 hr 05/05/19 05/05/19 05/05/19 11:35 17:07 20:13 WBC RBC Hgb Hct MCV MCH MCHC RDW Std Deviation RDW Coeff of Elvia Plt Count MPV PT INR APTT PTT Ratio POC Glucose 248 H 128 H 156 H 05/06/19 05/06/19 05/06/19 06:04 06:04 07:11 WBC 14.26 H RBC 2.33 L Hgb 8.6 L Hct 25.7 L MCV 110.3 H MCH 36.9 H MCHC 33.5 RDW Std Deviation 63.1 H RDW Coeff of Elvia 15.8 H Plt Count 129 L MPV 11.3 H PT 29.3 H INR 3.1 H APTT 52.4 H* PTT Ratio 1.9 POC Glucose 72
[2019-05-06] MEDS: cefTRIAXone SODIUM 2,000 MG in DEXTROSE 5% 50 ML IV SCH (12:22)
--- NOTE | 2019-05-06 14:15 | Infectious Disease Progress Nt ---
Date of Service May 06, 2019 Assessment & Plan (1) Gram positive sepsis: will change to rocephin 2g IV daily. repeat cultures negative, echo negative, would give min 14 days abx. ok for d/c when home abx approved, will need weekly cbc, cmp while on abx. Subjective pt remains on abx, tolerating well. for midline cath to complete abx at home. 8/ cultures remain negative, wbc remains at 14, afebrile. Results & Data Vital Signs (Past 12 Hours) Vital Signs Temp Pulse Pulse Pulse Resp BP BP 05/06/19 12:20 36.4 C L 84 18 130/64 05/06/19 12:10 36.5 C 84 122/69 05/06/19 11:40 76 118/63 05/06/19 11:20 74 108/57 L 05/06/19 11:00 59 L 109/59 L 05/06/19 10:40 74 107/61 05/06/19 10:20 77 116/62 05/06/19 10:00 77 121/66 05/06/19 09:40 64 127/64 05/06/19 09:20 64 127/64 05/06/19 09:00 66 127/64 05/06/19 08:40 73 126/62 05/06/19 08:20 73 126/62 05/06/19 08:01 59 L 127/54 L 05/06/19 07:42 72 140/80 05/06/19 07:35 36.5 C 74 05/06/19 07:33 36.5 C 70 16 121/67 05/06/19 07:26 62 05/06/19 04:02 36.9 C 77 18 120/62 Pulse Ox 05/06/19 12:20 93 05/06/19 12:10 05/06/19 11:40 05/06/19 11:20 05/06/19 11:00 05/06/19 10:40 05/06/19 10:20 05/06/19 10:00 05/06/19 09:40 05/06/19 09:20 05/06/19 09:00 05/06/19 08:40 05/06/19 08:20 05/06/19 08:01 05/06/19 07:42 05/06/19 07:35 05/06/19 07:33 96 05/06/19 07:26 05/06/19 04:02 95 Laboratory Results Microbiology 05/01/19 05:16 Blood Aerobic Blood Culture - Final No growth in Aerobic bottle after 5 days. 05/01/19 05:16 Blood Anaerobic Blood Culture - Final No growth in Anaerobic bottle after 5 days. 05/02/19 20:29 Blood Aerobic Blood Culture - Preliminary No growth in Aerobic bottle after 48 hours. 05/02/19 20:29 Blood Anaerobic Blood Culture - Final 05/02/19 20:21 Blood Aerobic Blood Culture - Preliminary No growth in Aerobic bottle after 48 hours. 05/02/19 20:21 Blood Anaerobic Blood Culture - Preliminary No growth in Anaerobic bottle after 48 hours. 05/01/19 05:16 Blood Aerobic Blood Culture - Final Staphylococcus aureus 05/01/19 05:16 Blood Anaerobic Blood Culture - Final Staphylococcus aureus
--- NOTE | 2019-05-06 14:53 | Hospitalist Progress Note ---
Date of Service May 06, 2019 Assessment & Plan (1) Gram-positive cocci in clusters: Blood cx positive for gram positive cocci Received IV Vanco then changed to Rocephin ECHO showed no vegetation WBC 11K today MRSA PCR negative Received IV Vanco, then IV apto q48h ID on board recommended to transition to Rocephin IV 2g for 14 days Repeat blood cx negative U/S guided peripheral IV place today Check CBC and CMP weekly while on abx (2) Left-sided chest pain: Atypical chest pain with reproducible pain Mostly due to musculoskeletal Troponin x 3 negative EKG showed no ischemic changes ECHO showed no wall motion abnormality Cardiology on board Pain resolved (3) Acute hypoxemic respiratory failure: Oxygen on admission dropped in the 's Missed Hemodialysis CTA chest showed no evidence of pulmonary embolus. Components of congestive failure with small bilateral pleural effusions. has been dialysis Saturated very well Clinically improves resoloved (4) PMR (polymyalgia rheumatica): ACS was ruled out and chest discomfort is very atypical for this presentation. Significant tenderness to palpation on admission Continue prednisone 10mg daily Pain resolved (5) ESRD (end stage renal disease) on dialysis: Nephro on board Had HD today Next HD plan for 05/08 Continue monitor (6) Type 2 diabetes mellitus: controlled cont ISS and carb coverage. Monitor BS Hx DVT and PE Continue coumadin with INR 3.1 today (7) DVT prophylaxis: on coumadin with INR 3.1 today Full Code Dispo Discharge home tomorrow Subjective Pt was seen and examined Lying in bed with no distress with daughter at bedside Pt said that he feels fine He had HD done today Denies any chest pain, palpitation and SOB Physical Exam Physical Exam: General- No acute distress Head- atraumatic Eyes- PERRL, EOMI, ENT- oropharynx clear Neck- supple, no JVD Lungs- +diminished BS Heart- regular rhythm; +murmur Abdomen- normal bowel sounds, soft, nontender Extremities- no calf tenderness, +edema Neuro- alert, oriented x 3; PERRL, EOMI; no facial palsy; no dysarthria Skin- warm & dry Results & Data Vital Signs (Past 12 Hours) Vital Signs Temp Pulse Pulse Pulse Resp BP BP 05/06/19 12:20 36.4 C L 84 18 130/64 05/06/19 12:10 36.5 C 84 122/69 05/06/19 11:40 76 118/63 05/06/19 11:20 74 108/57 L 05/06/19 11:00 59 L 109/59 L 05/06/19 10:40 74 107/61 05/06/19 10:20 77 116/62 05/06/19 10:00 77 121/66 05/06/19 09:40 64 127/64 05/06/19 09:20 64 127/64 05/06/19 09:00 66 127/64 05/06/19 08:40 73 126/62 05/06/19 08:20 73 126/62 05/06/19 08:01 59 L 127/54 L 05/06/19 07:42 72 140/80 05/06/19 07:35 36.5 C 74 05/06/19 07:33 36.5 C 70 16 121/67 05/06/19 07:26 62 05/06/19 04:02 36.9 C 77 18 120/62 Pulse Ox 05/06/19 12:20 93 05/06/19 12:10 05/06/19 11:40 05/06/19 11:20 05/06/19 11:00 05/06/19 10:40 05/06/19 10:20 05/06/19 10:00 05/06/19 09:40 05/06/19 09:20 05/06/19 09:00 05/06/19 08:40 05/06/19 08:20 05/06/19 08:01 05/06/19 07:42 05/06/19 07:35 05/06/19 07:33 96 05/06/19 07:26 05/06/19 04:02 95
[2019-05-06] MEDS: WARFARIN SOD 3 MG TAB PO SCH (16:10)
[2019-05-07] MEDS: TRAMADOL HCL 50 MG TABLET PO PRN (00:59)
[2019-05-07 07:31] LABS: INR 2.9 (0.9-1.1); Prothrombin Time 27.6 Seconds (9.0-12.0)
[2019-05-07] MEDS: predniSONE 10 MG TABLET PO SCH (07:40)
[2019-05-07] MEDS: VITAMIN B COMPLEX TAB PO SCH (07:41)
[2019-05-07] MEDS: CHOLECALCIFEROL 1,000 UNITS TAB PO SCH (07:41)
[2019-05-07] MEDS: CARVEDILOL 12.5 MG TAB PO SCH (07:41)
[2019-05-07] MEDS: PANTOprazole 40 MG TAB PO SCH (07:42)
[2019-05-07] MEDS: SEVELAMER HCL 800 MG TABLET PO SCH ×2 (07:43→11:28)
[2019-05-07] MEDS: cefTRIAXone SODIUM 2,000 MG in DEXTROSE 5% 50 ML IV SCH (07:45)
[2019-05-07] MEDS: INSULIN GLARGINE SOLOSTAR 100 UNITS/ML 3 ML PEN SC SCH (08:50)
[2019-05-07] MEDS: INSULIN ASPART 100 UNITS/ML 3 ML PEN SC SCH ×2 (08:52→12:25)
--- NOTE | 2019-05-07 10:45 | Nephrology Progress Note ---
Date of Service May 07, 2019 Assessment & Plan (1) ESRD (end stage renal disease) on dialysis: Patient with ESRD on dialysis Sunday. Patient tolerated dialysis well yesterday with net UF 3litres. Next HD will be . If discharged patient to continue outpatient dialysis on . 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 He will continue ADILENE as ouptatient. (3) Renal lesion: noted at previous admission past 6 wks >> for OP f/u (4) Gram positive sepsis: inf dzs following; patient receiving Rocephin for 14 days outpatient per ID. Patient s/p a mid line catheter for home antibiotics Subjective Patient seen in follow this morning. He is complaining of fatigue. Tolerated HD well yesterday. No SOB. Daughter at bedside. Review of Systems Review of Systems: All systems reviewed & are unremarkable except as noted in HPI & below Physical Exam Physical Exam: General exam: Appears comfortable, no acute distress HEENT: Pupils are equal and reactive to light Neck: No JVD, neck is supple trachea is midline Respiratory system: Clear breath sounds bilaterally. Gastrointestinal: Abdomen is soft, non distended, non tender, bowel sounds are present CVS: Regular rate and rhythm. No murmurs, rubs or gallops Musculoskeletal: No joint or muscle tenderness Extremities: Non tender, 1+ edema, peripheral pulses are present Neuro: Oriented, no tremors, no focal neurological deficits Skin: No rashes Results & Data Vital Signs (Past 12 Hours) Vital Signs Temp Pulse Pulse Resp BP Pulse Ox 05/07/19 07:10 103 H 05/07/19 06:57 36.8 C 104 H 18 125/64 96 05/07/19 00:08 80 05/06/19 23:02 37 C 81 18 127/62 92 Laboratory Results Laboratory Results - last 24 hr 05/06/19 05/06/19 05/06/19 12:13 16:28 20:45 PT INR POC Glucose 121 H 180 H 145 H 05/07/19 05/07/19 07:06 07:34 PT 27.6 H INR 2.9 H POC Glucose 76
[2019-05-07] MEDS: SIMETHICONE 80 MG CHEW PO PRN (11:29)
--- NOTE | 2019-05-07 11:44 | Hospitalist Progress Note ---
Date of Service May 07, 2019 Assessment & Plan (1) Gram-positive cocci in clusters: Blood cx positive for gram positive cocci ; no documented source of infection Received IV Vanco then changed to Rocephin ECHO showed no vegetation MRSA PCR negative Received IV Vanco, then IV Dapto q48h ID on board recommended to transition to Rocephin IV 2g for 14 days Repeat blood cx negative Check CBC and CMP weekly while on abx PICC line has been placed Home health arranged for IV antibiotic to be given Will discharge home this afternoon (2) Left-sided chest pain: Atypical chest pain with reproducible pain Mostly due to musculoskeletal Troponin x 3 negative EKG showed no ischemic changes ECHO: Moderate LV hypertrophy, no wall motion abnormality, EF 60 to 65%, grade 1 diastolic dysfunction, bioprosthetic aortic valve RV systolic function is elevated at 40 to 50 mmHg and mildly valvular regurgitation Cardiology on board Pain resolved (3) Acute hypoxemic respiratory failure: Oxygen on admission dropped in the 's Missed Hemodialysis CTA chest showed no evidence of pulmonary embolus. Components of congestive failure with small bilateral pleural effusions. Has been on hemodialysis and the symptoms are better Appreciate nephrology input and recommendation Saturating normally on room air (4) PMR (polymyalgia rheumatica): ACS was ruled out and chest discomfort is very atypical for this presentation. Significant tenderness to palpation on admission Continue prednisone 10mg daily Pain resolved (5) ESRD (end stage renal disease) on dialysis: Nephro on board Had HD today Next HD plan for 05/08 Continue monitor (6) Type 2 diabetes mellitus: controlled cont ISS and carb coverage. Monitor BS Hx DVT and PE Continue coumadin with INR 3.1 today (7) DVT prophylaxis: on coumadin with INR 3.1 today Full Code Dispo Discharge home today Discussed with the daughter in detail Subjective 05/07 Patient was seen and examined in medical floor in presence of the daughter He complains to have some cough this morning Feels tired as he has not had slept last night He wants to go home Review of Systems Review of Systems: All systems reviewed and are unremarkable except as noted below Constitutional: + weakness Respiratory: + cough; no dyspnea Physical Exam Physical Exam: No apparent distress at rest Constitutional: well developed, well nourished and + obese; no acute distress Eyes: PERRL, conjunctivae normal, anicteric sclerae EOM intact bilaterally ENMT: external ear and nose normal, oropharynx normal Ears: no external ear abnormality Nose: no external nose abnormality Mouth: + dry oral mucous membranes Neck: trachea midline, no thyromegaly normal visual inspection; no nuchal rigidity Respiratory: normal respiratory effort; no respiratory distress and no labored breathing Auscultation: + diminished lung sounds and + crackles (Minimal right base) Cardiovascular: Rate/Rhythm: regular rate and regular rhythm Heart Sounds: normal S1, normal S2 and + murmur; no gallop Palpation: normal PMI Vessels: normal carotid upstroke and radial pulses present; no JVD and no carotid bruit Extremities: + edema (2+ pedal edema, trace pretibial) and + AV fistula Gastrointestinal (Abdomen): Inspection/Auscultation: abdomen normal to inspection, + abdomen distended and normal bowel sounds Percussion/Palpation: abdomen soft; abdomen nontender Musculoskeletal: Extremities: strength 5/5 throughout No acute arthritis in any of the joints Skin: no rashes, warm and dry Neurologic: PERRL, EOMI, accommodation nl, no face palsy, no dysarthria Psychiatric: A+Ox3, euthymic affect Orientation: alert and oriented x 3 Eye Contact: good eye contact Speech: normal rate/rhythm/volume of speech Affect: + flat affect Insight: good insight Judgement: good judgement Lymphatic: no cervical or axillary lymphadenopathy Results & Data Vital Signs (Past 12 Hours) Vital Signs Temp Pulse Pulse Resp BP Pulse Ox 05/07/19 07:10 103 H 05/07/19 06:57 36.8 C 104 H 18 125/64 96 05/07/19 00:08 80 Medications Administered Current Inpatient Medications Acetaminophen (Tylenol) 650 mg PO Q4H PRN PRN Reason: Pain or Fever Stop: 05/31/19 07:43 Last Admin: 05/07/19 11:05 Dose: 650 mg Documented by: Carvedilol (Coreg) 12.5 mg PO BID JAMES Stop: 05/31/19 08:59 Last Admin: 05/07/19 07:41 Dose: 12.5 mg Documented by: Dextrose (Dextrose 50%) 25 - 50 ml IV UD PRN; Protocol PRN Reason: Hypoglycemia Protocol Stop: 05/31/19 07:43 Docusate Sodium (Colace) 100 mg PO BID PRN PRN Reason: Constipation Glucagon (Glucagen) 1 mg SQ UD PRN; Protocol PRN Reason: Hypoglycemia Protocol Stop: 05/31/19 07:43 Glucose (Glucose 40%) 15 - 30 gm PO UD PRN; Protocol PRN Reason: Hypoglycemia Protocol Stop: 05/31/19 07:43 Glucose (Dex4 Glucose) 4 - 8 tabs PO UD PRN; Protocol PRN Reason: Hypoglycemia Protocol Stop: 05/31/19 07:43 Hydromorphone HCl (Dilaudid) 0.25 mg IV Q3H PRN PRN Reason: Pain Stop: 05/15/19 07:43 Promethazine HCl 12.5 mg/ (Sodium Chloride) 50.5 mls @ 202 mls/hr IV Q6H PRN PRN Reason: Nausea And Vomiting Stop: 05/31/19 07:43 Ceftriaxone Sodium 2,000 mg/ (Dextrose) 70 mls @ 100 mls/hr IV DAILY JAMES; Protocol Stop: 05/20/19 08:59 Last Infusion: 05/07/19 08:34 Dose: Infused Documented by: Insulin Aspart (Novolog Flexpen) 0 units SC ACHS JAMES Stop: 05/31/19 07:59 Last Admin: 05/07/19 08:52 Dose: 2 units Documented by: Insulin Glargine (Lantus Solostar Pen) 15 units SC BID JAMES Stop: 05/31/19 20:59 Last Admin: 05/07/19 08:50 Dose: 15 units Documented by: Menthol (Nice) 1 best BUCCAL NOW PRN PRN Reason: Sore Throat Stop: 06/03/19 11:02 Miscellaneous (Carbohydrates For Hypoglycemia) 15 - 30 gm PO UD PRN PRN Reason: Hypoglycemia Treatment Stop: 05/31/19 07:43 Pantoprazole Sodium (Protonix) 40 mg PO DAILY [facility] Stop: 05/31/19 08:59 Last Admin: 05/07/19 07:42 Dose: 40 mg Documented by: Prednisone (Prednisone) 10 mg PO QAM [facility] Stop: 06/03/19 08:59 Last Admin: 05/07/19 07:40 Dose: 10 mg Documented by: Ranitidine HCl (Zantac) 150 mg PO Q12H PRN PRN Reason: heartburn Stop: 05/31/19 07:43 Last Admin: 05/04/19 19:59 Dose: 150 mg Documented by: Sevelamer HCl (Renagel) 1,600 mg PO DAILYBD [facility] Stop: 05/31/19 15:29 Last Admin: 05/06/19 16:10 Dose: 1,600 mg Documented by: Sevelamer HCl (Renagel) 800 mg PO 0800,1200 [facility] Stop: 06/04/19 07:59 Last Admin: 05/07/19 11:28 Dose: 800 mg Documented by: Simethicone (Mylicon) 80 mg PO Q6H PRN PRN Reason: Gas or Constipation Stop: 06/03/19 19:41 Last Admin: 05/07/19 11:29 Dose: 80 mg Documented by: Tramadol HCl (Ultram) 25 - 50 mg PO Q4H PRN PRN Reason: Pain Stop: 05/31/19 07:43 Last Admin: 05/07/19 00:59 Dose: 50 mg Documented by: Vitamin B Complex (Vitamin B Complex) 1 tab PO DAILY [facility] Stop: 05/31/19 08:59 Last Admin: 05/07/19 07:41 Dose: 1 tab Documented by: Vitamin D (Vitamin D3) 1,000 units PO DAILY [facility] Stop: 05/31/19 08:59 Last Admin: 05/07/19 07:41 Dose: 1,000 units Documented by: Warfarin Sodium (Coumadin) 3 mg PO TODAY@1600 [facility] Stop: 06/04/19 15:59 Last Admin: 05/06/19 16:10 Dose: 3 mg Documented by:
--- NOTE | 2019-05-07 16:56 | Discharge Summary ---
Date of Service May 07, 2019 Admission HPI Per Admitting Provider History obtained from patient and records. 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 Recent confinement 2 weeks ago for sepsis secondary to pneumonia. 2 days ago patient noted to have loose stools at home, nonbloody. No unusual abdominal pain. Patient had to miss a dialysis session secondary to weakness. Outpatient stool C. difficile was negative. Diarrheal illness currently improving as per patient. Patient roused from sleep this morning with achy left-sided chest pain going to the shoulder, somewhat worse with motion. Little short of breath. No unusual cough symptoms. No fever, no chills. No relief with nitroglycerin administration. At the ER, O2 sats noted to be 80s on room air. Patient currently comfortable. 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 Admission Exam Per Admitting Provider Physical Exam: GENERAL: Comfortable, pleasant, no respiratory distress, obese SKIN: Pallor , warm HEENT: Alopecia, pale palpebral conjunctivae, no ptosis, dry buccal mucosa NECK : Supple, short, no tenderness CHEST : Scattered crackles, left-sided anterior chest wall tenderness tenderness HEART : RRR, systolic murmur ABDOMEN: Some distention, nontender EXTREMITIES : Bilateral LE swelling, no LE tenderness, no other conspicuous deformities noted NEUROLOGIC : Coherent, no facial asymmetry, no other gross focality Principal Diagnosis Gram-positive bacteremia, end-stage renal disease on hemodialysis, acute hypoxic respiratory failure likely secondary to fluid overload-resolved Discharge Exam Constitutional well developed, well nourished and + obese; no acute distress Eyes PERRL, conjunctivae normal, anicteric sclerae EOM intact bilaterally ENMT external ear and nose normal, oropharynx normal Ears: no external ear abnormality Nose: no external nose abnormality Mouth: + dry oral mucous membranes Neck trachea midline, no thyromegaly normal visual inspection; no nuchal rigidity Respiratory normal respiratory effort; no respiratory distress and no labored breathing Auscultation: + diminished lung sounds and + crackles (Minimal right base) Cardiovascular Rate/Rhythm: regular rate and regular rhythm Heart Sounds: normal S1, normal S2 and + murmur; no gallop Palpation: normal PMI Vessels: normal carotid upstroke and radial pulses present; no JVD and no carotid bruit Extremities: + edema (2+ pedal edema, trace pretibial) and + AV fistula Gastrointestinal (Abdomen) Inspection/Auscultation: abdomen normal to inspection, + abdomen distended and normal bowel sounds Percussion/Palpation: abdomen soft; abdomen nontender Musculoskeletal Extremities: strength 5/5 throughout Skin no rashes, warm and dry Neurologic PERRL, EOMI, accommodation nl, no face palsy, no dysarthria Psychiatric A+Ox3, euthymic affect Orientation: alert and oriented x 3 Eye Contact: good eye contact Speech: normal rate/rhythm/volume of speech Affect: + flat affect Insight: good insight Judgement: good judgement Lymphatic no cervical or axillary lymphadenopathy Discharge Data Allergies Allergy/AdvReac Type Severity Reaction Status Date / Time aspirin Allergy Unknown . Verified 05/01/19 04:33 salicylates Allergy Unknown UNKNOWN Verified 05/01/19 04:33 Consultations 05/01/19 04:51 ED Decision to Admit Stat 05/01/19 07:44 Consult Nephrology Routine 05/01/19 11:13 Consult Cardiology Routine 05/02/19 18:28 Consult Infectious Diseases Routine Ordered Studies 05/01/19 06:02 CT angio chest PE protocol Urgent Hospital Course (1) Gram-positive cocci in clusters: Blood cx positive for gram positive cocci ; no documented source of infection Received IV Vanco then changed to Rocephin ECHO showed no vegetation MRSA PCR negative Received IV Vanco, then IV Dapto q48h ID on board recommended to transition to Rocephin IV 2g for 14 days Repeat blood cx negative Check CBC and CMP weekly while on abx PICC line has been placed Home health arranged for IV antibiotic to be given Will discharge home this afternoon (2) Left-sided chest pain: Atypical chest pain with reproducible pain Mostly due to musculoskeletal Troponin x 3 negative EKG showed no ischemic changes ECHO: Moderate LV hypertrophy, no wall motion abnormality, EF 60 to 65%, grade 1 diastolic dysfunction, bioprosthetic aortic valve RV systolic function is elevated at 40 to 50 mmHg and mildly valvular regurgitation Cardiology on board Pain resolved (3) Acute hypoxemic respiratory failure: Oxygen on admission dropped in the 87's Missed Hemodialysis CTA chest showed no evidence of pulmonary embolus. Components of congestive failure with small bilateral pleural effusions. Has been on hemodialysis and the symptoms are better Appreciate nephrology input and recommendation Saturating normally on room air (4) PMR (polymyalgia rheumatica): ACS was ruled out and chest discomfort is very atypical for this presentation. Significant tenderness to palpation on admission Continue prednisone 10mg daily Pain resolved (5) ESRD (end stage renal disease) on dialysis: Nephro on board Had HD today Next HD plan for 05/08 Continue monitor (6) Type 2 diabetes mellitus: controlled cont ISS and carb coverage. Monitor BS Hx DVT and PE Continue coumadin with INR 3.1 today (7) DVT prophylaxis: on coumadin with INR 3.1 today Full Code Dispo Discharge home today Discussed with the daughter in detail Total Time Total Time Spent Total Time Spent (In Minutes): 35 minutes Total Time Includes: Examination of the Patient, Discharge Planning, Medication Reconciliation and Communication With Other Providers Discharge Plan Discharge Items Patient Disposition: Home - Home Health Services Reason For Visit: RESPIRATORY FAILURE Discharge Diagnosis: Gram-positive bacteremia, end-stage renal disease on hemodialysis, acute hypoxic respiratory failure likely secondary to fluid overload-resolved Discharge Goals: Decrease discomfort, Increase independence and Improve nutritional status Activity: Resume your previous activity Non-emergency contact: Primary Care Provider Call non-emergency contact if: you have any medication questions and your symptoms worsen Follow-up/Referrals: Zach Gooden MD [Primary Care Provider] - 05/09/19 10:45 am (Your appoint ment is with Dr. Hyde. Coagulation clinic notified. Please continue to do hemodialysis as an outpatient) Diet: Carb Consistent or DM2, Dialysis Renal, Heart Healthy and Low Sodium (2gm) Fluids: 1500ml (6 cups) Addtl Provider Instructions: Continue IV antibiotic for 14 days Will need weekly CBC and CMP checked as long as on antibiotic Prescriptions: New ceftriaxone 2 gram recon soln 2 gm IV DAILY Qty: 14 RF: 0 Continued carvedilol [Coreg] 12.5 mg tablet 12.5 mg PO BID RF: 0 acetaminophen [Tylenol Extra Strength] 500 mg Tablet 500 mg PO Q6H PRN (Reason: Pain) RF: 0 warfarin [Coumadin] 5 mg tablet 5 mg PO SUTUTHSA RF: 0 omeprazole 20 mg capsule,delayed release(DR/EC) 20 mg PO DAILY RF: 0 cholecalciferol (vitamin D3) [Vitamin D3] 1,000 unit Capsule 1,000 unit PO DAILY RF: 0 sevelamer carbonate [Renvela] 800 mg tablet 1,600 mg PO DAILYBD RF: 0 [place]-3 350 mg-235 mg- 90 mg-597 mg Capsule,Delayed Release(Dr/Ec) 1 tab PO DAILY RF: 0 warfarin [Coumadin] 5 mg tablet 2.5 mg PO MOWEFR RF: 0 Sherley-Neeraj 0.8 mg tablet 1 tab PO DAILY RF: 0 fluticasone propionate [Flonase Allergy Relief] 50 mcg/actuation [place],Suspension 1 spray INTRANASAL DAILY PRN (Reason: Nasal Congestion) RF: 0 docusate sodium 100 mg Tablet 100 mg PO BID PRN (Reason: Constipation) RF: 0 sevelamer carbonate [Renvela] 800 mg tablet 800 mg PO DAILYBL RF: 0 lidocaine-prilocaine 2.5-2.5 % cream 1 applic topical UD RF: 0 vitamin B complex Tablet 1 tab PO DAILY RF: 0 sevelamer carbonate 800 mg tablet 800 mg PO DAILYBB RF: 0 ranitidine HCl 150 mg capsule 150 mg PO Q12H PRN (Reason: heartburn) Qty: 30 RF: 0 Stand-Alone Forms: [facility] Discharge Orders: Discharge Order (Routine); Ordered 05/07/19 Ordered By: Gerard Lancaster Admission Data Admit Date/Time: 05/01/19 06:06 Attending Provider: Gerard Lancaster Admit Provider: Caden Ortiz Primary Care Provider: Zach Gooden Other Providers: Caden Ortiz ; Ashly Myrick ; Khoa Pradhan ; Ty Morse I ; Maddie Armijo ; Abby Puente Japheth E. ; Aubrey Muse ; Janice Dockery ; Umang Brown ; Mariusz Gonzalez Service: Telemetry Medical Other Interventions: Discharge Summary Assessment (RN) Last Done: 05/07/19 12:07 DC Date/Time DO NOT enter until pt leaves facility: 05/07/19 13:19
--- NOTE | 2019-05-13 07:29 | Discharge Summary ---
Date of Service May 13, 2019 Admission HPI Per Admitting Provider History obtained from patient and records. 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 Recent confinement 2 weeks ago for sepsis secondary to pneumonia. 2 days ago patient noted to have loose stools at home, nonbloody. No unusual abdominal pain. Patient had to miss a dialysis session secondary to weakness. Outpatient stool C. difficile was negative. Diarrheal illness currently improving as per patient. Patient roused from sleep this morning with achy left-sided chest pain going to the shoulder, somewhat worse with motion. Little short of breath. No unusual cough symptoms. No fever, no chills. No relief with nitroglycerin administration. At the ER, O2 sats noted to be 80s on room air. Patient currently comfortable. 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 Admission Exam Per Admitting Provider Physical Exam: GENERAL: Comfortable, pleasant, no respiratory distress, obese SKIN: Pallor , warm HEENT: Alopecia, pale palpebral conjunctivae, no ptosis, dry buccal mucosa NECK : Supple, short, no tenderness CHEST : Scattered crackles, left-sided anterior chest wall tenderness tenderness HEART : RRR, systolic murmur ABDOMEN: Some distention, nontender EXTREMITIES : Bilateral LE swelling, no LE tenderness, no other conspicuous deformities noted NEUROLOGIC : Coherent, no facial asymmetry, no other gross focality Principal Diagnosis Gram-positive bacteremia, end-stage renal disease on hemodialysis, acute hypoxic respiratory failure likely secondary to fluid overload-resolved Discharge Exam Constitutional well developed, well nourished and + obese; no acute distress Eyes PERRL, conjunctivae normal, anicteric sclerae EOM intact bilaterally ENMT external ear and nose normal, oropharynx normal Ears: no external ear abnormality Nose: no external nose abnormality Mouth: + dry oral mucous membranes Neck trachea midline, no thyromegaly normal visual inspection; no nuchal rigidity Respiratory normal respiratory effort; no respiratory distress and no labored breathing Auscultation: + diminished lung sounds and + crackles (Minimal right base) Cardiovascular Rate/Rhythm: regular rate and regular rhythm Heart Sounds: normal S1, normal S2 and + murmur; no gallop Palpation: normal PMI Vessels: normal carotid upstroke and radial pulses present; no JVD and no carotid bruit Extremities: + edema (2+ pedal edema, trace pretibial) and + AV fistula Gastrointestinal (Abdomen) Inspection/Auscultation: abdomen normal to inspection, + abdomen distended and normal bowel sounds Percussion/Palpation: abdomen soft; abdomen nontender Musculoskeletal Extremities: strength 5/5 throughout Skin no rashes, warm and dry Neurologic PERRL, EOMI, accommodation nl, no face palsy, no dysarthria Psychiatric A+Ox3, euthymic affect Orientation: alert and oriented x 3 Eye Contact: good eye contact Speech: normal rate/rhythm/volume of speech Affect: + flat affect Insight: good insight Judgement: good judgement Lymphatic no cervical or axillary lymphadenopathy Discharge Data Allergies Allergy/AdvReac Type Severity Reaction Status Date / Time aspirin Allergy Unknown . Verified 05/09/19 21:01 salicylates Allergy Unknown UNKNOWN Verified 05/09/19 21:01 Consultations 05/01/19 04:51 ED Decision to Admit Stat 05/01/19 07:44 Consult Nephrology Routine 05/01/19 11:13 Consult Cardiology Routine 05/02/19 18:28 Consult Infectious Diseases Routine Ordered Studies 05/01/19 06:02 CT angio chest PE protocol Urgent Hospital Course (1) Gram-positive cocci in clusters: Blood cx positive for gram positive cocci ; no documented source of infection Received IV Vanco then changed to Rocephin ECHO showed no vegetation MRSA PCR negative Received IV Vanco, then IV Dapto q48h ID on board recommended to transition to Rocephin IV 2g for 14 days Repeat blood cx negative Check CBC and CMP weekly while on abx PICC line has been placed Home health arranged for IV antibiotic to be given Will discharge home this afternoon (2) Left-sided chest pain: Atypical chest pain with reproducible pain Mostly due to musculoskeletal Troponin x 3 negative EKG showed no ischemic changes ECHO: Moderate LV hypertrophy, no wall motion abnormality, EF 60 to 65%, grade 1 diastolic dysfunction, bioprosthetic aortic valve RV systolic function is elevated at 40 to 50 mmHg and mildly valvular regurgitation Cardiology on board Pain resolved (3) Acute hypoxemic respiratory failure: Oxygen on admission dropped in the 87's Missed Hemodialysis CTA chest showed no evidence of pulmonary embolus. Components of congestive failure with small bilateral pleural effusions. Has been on hemodialysis and the symptoms are better Appreciate nephrology input and recommendation Saturating normally on room air (4) PMR (polymyalgia rheumatica): ACS was ruled out and chest discomfort is very atypical for this presentation. Significant tenderness to palpation on admission Continue prednisone 10mg daily Pain resolved (5) ESRD (end stage renal disease) on dialysis: Nephro on board Had HD today Next HD plan for 05/08 Continue monitor (6) Type 2 diabetes mellitus: controlled cont ISS and carb coverage. Monitor BS Hx DVT and PE Continue coumadin with INR 3.1 today (7) DVT prophylaxis: on coumadin with INR 3.1 today Full Code Dispo Discharge home today Discussed with the daughter in detail Total Time Total Time Spent Total Time Spent (In Minutes): 35 minutes Total Time Includes: Examination of the Patient, Discharge Planning, Medication Reconciliation and Communication With Other Providers Discharge Plan Discharge Items Patient Disposition: Home - Home Health Services Reason For Visit: RESPIRATORY FAILURE Discharge Diagnosis: Gram-positive bacteremia, end-stage renal disease on hemodialysis, acute hypoxic respiratory failure likely secondary to fluid overload-resolved Discharge Goals: Decrease discomfort, Increase independence and Improve nutritional status Activity: Resume your previous activity Non-emergency contact: Primary Care Provider Call non-emergency contact if: you have any medication questions and your symptoms worsen Follow-up/Referrals: Zach Gooden MD [Primary Care Provider] - 05/09/19 10:45 am (Your appoin tment is with Dr. Hyde. Coagulation clinic notified. Please continue to do hemodialysis as an outpatient) Diet: Carb Consistent or DM2, Dialysis Renal, Heart Healthy and Low Sodium (2gm) Fluids: 1500ml (6 cups) Addtl Provider Instructions: Continue IV antibiotic for 14 days Will need weekly CBC and CMP checked as long as on antibiotic Prescriptions: New ceftriaxone 2 gram recon soln 2 gm IV DAILY Qty: 14 RF: 0 Continued carvedilol [Coreg] 12.5 mg tablet 12.5 mg PO BID RF: 0 acetaminophen [Tylenol Extra Strength] 500 mg Tablet 500 mg PO Q6H PRN (Reason: Pain) RF: 0 omeprazole 20 mg capsule,delayed release(DR/EC) 20 mg PO DAILY RF: 0 cholecalciferol (vitamin D3) [Vitamin D3] 1,000 unit Capsule 1,000 unit PO DAILY RF: 0 Sylvester-3 350 mg-235 mg- 90 mg-597 mg Capsule,Delayed Release(Dr/Ec) 1 tab PO DAILY RF: 0 warfarin [Coumadin] 5 mg tablet 2.5 mg PO DAILY RF: 0 Sherley-Neeraj 0.8 mg tablet 1 tab PO DAILY RF: 0 fluticasone propionate [Flonase Allergy Relief] 50 mcg/actuation [place],Suspension 1 spray INTRANASAL DAILY PRN (Reason: Nasal Congestion) RF: 0 docusate sodium 100 mg Tablet 100 mg PO BID PRN (Reason: Constipation) RF: 0 lidocaine-prilocaine 2.5-2.5 % cream 1 applic topical UD RF: 0 vitamin B complex Tablet 1 tab PO DAILY RF: 0 sevelamer carbonate 800 mg tablet 800 mg PO TIDM RF: 0 ranitidine HCl 150 mg capsule 150 mg PO Q12H PRN (Reason: heartburn) Qty: 30 RF: 0 No Action prednisone 10 mg Tablet 10 mg PO DAILY 30 Days Qty: 30 RF: 0 Stand-Alone Forms: [facility] Discharge Orders: Discharge Order (Routine); Ordered 05/07/19 Ordered By: Gerard Lancaster Admission Data Admit Date/Time: 05/01/19 06:06 Attending Provider: Gerard Lancaster Admit Provider: Caden Ortiz Primary Care Provider: Zach Gooden Other Providers: Caden Ortiz ; Ashly Myrick ; Khoa Pradhan ; Ty Morse I ; Maddie Armijo ; Abby Puente Japheth E. ; Aubrey Muse ; Janice Dockery ; Umang Brown ; Mariusz Gonzalez Service: Telemetry Medical Other Interventions: Discharge Summary Assessment (RN) Last Done: 05/07/19 12:07 DC Date/Time DO NOT enter until pt leaves facility: 05/07/19 13:19
== END 2019-05-07 13:19 | disposition home health service (06) | DRG 189 ==
LOC: ED 03:31 → 2N 06:06 → SUATTDRO 06:06 → 2N 06:22
DX: M35.3 Polymyalgia rheumatica; N18.6 End stage renal disease; Z96.649 Presence of unspecified artificial hip joint; I48.92 Unspecified atrial flutter; Z95.2 Presence of prosthetic heart valve; I50.812 Chronic right heart failure; K21.9 Gastro-esophageal reflux disease without esophagitis; I25.10 Atherosclerotic heart disease of native coronary artery without angina pectoris; I12.0 Hypertensive chronic kidney disease with stage 5 chronic kidney disease or end stage renal disease; J96.01 Acute respiratory failure with hypoxia; Z86.711 Personal history of pulmonary embolism; Z86.718 Personal history of other venous thrombosis and embolism; R78.9 Finding of unspecified substance, not normally found in blood; E11.22 Type 2 diabetes mellitus with diabetic chronic kidney disease; Z82.49 Family history of ischemic heart disease and other diseases of the circulatory system

== ENCOUNTER 2019-05-09 19:18 | Observation (INO) ==
--- NOTE | 2019-05-09 19:55 | XRay Report ---
XR chest 1V portable CLINICAL HISTORY: 84 years-old Male presenting with abd pain. TECHNIQUE: Portable upright AP view of the chest was obtained. COMPARISON: 05/01/2019. FINDINGS: Median sternotomy wires and prosthetic aortic valve. Atherosclerosis of the thoracic aorta. Cardiac s ilhouette mildly enlarged. Decreased perihilar and bibasilar opacity though there is some degree of o pacity remaining on the right lung base. Trace right pleural effusion may be present. Degenerative ch anges of the thoracic spine. Upper abdomen normal. IMPRESSION: 1. Decreasing perihilar and bibasilar opacities, although there is some degree of persistent infiltr ate suspected at the right lung base. 2. Questionable right pleural effusion. 3. Cardiomegaly. No zoë pulmonary edema. Electronically signed by: Jaspreet Taylor M.D. 05/09/2019 7:54 PM
[2019-05-09 21:00] LABS: Basophils # (auto) 0.06 K/uL (0-0.2); Basophils % (auto) 0.5 %; Eosinophils # (auto) 0.16 K/uL (0-0.5); Eosinophils % (auto) 1.4 %; Hematocrit (blood only) 29.3 % (42-52); Hemoglobin 9.6 g/dL (14.0-18.0); Immature Granulocytes # (auto) 0.25 K/uL (0.00-0.02); Immature Granulocytes % (auto) 2.2 %; Lymphocytes # (auto) 1.04 K/uL (1.2-3.4); Lymphocytes % (auto) 9.3 %; Mean Corpuscular Hgb Conc 32.8 g/dL (32-36); Mean Corpuscular Volume 110.6 fL (80-100); Monocytes # (auto) 1.24 K/uL (0.11-0.59); Monocytes % (auto) 11.1 %; Neutrophils # (auto) 8.47 K/uL (1.4-6.5); Neutrophils % (auto) 75.5 %; Platelet Count 212 K/uL (130-400); RDW Standard Deviation 63.8 fL (36.4-46.3); Red Blood Count 2.65 M/uL (4.7-6.1); White Blood Count 11.22 K/uL (4.8-10.8)
[2019-05-09 21:05] LABS: INR 2.3 (0.9-1.1); Partial Thromboplastin Ratio 1.8; Prothrombin Time 22.5 Seconds (9.0-12.0)
--- NOTE | 2019-05-09 21:16 | CT Scan Report ---
CT head/brain wo con CLINICAL HISTORY: 84 years-old Male presenting with altered mental status and weakness. TECHNIQUE: Multidetector CT imaging of the head was performed without the use of intravenous contrast . IV contrast: None. One or more dose lowering techniques were used consistent with the principles of ALARA (as low as reasonably achievable), including automatic exposure control, mA or kV adjustment t o individual patient size, and/or use of iterative reconstruction. COMPARISON: None. CT DOSE (mGy.cm): The estimated cumulative dose is 1176.15 mGy.cm. FINDINGS: Locker Plant Attendant topogram: Unremarkable. Proportional ventricular and sulcal prominence, likely age-related parenchymal volume loss. No hemorr maximiliano. Brain parenchyma normal in appearance with preserved myrick-white differentiation. No acute conrado torial infarct. No mass effect or midline shift. No extra-axial fluid collection. Paranasal sinuses a nd mastoid air cells clear. Calvarium intact. Intracranial atherosclerosis noted. IMPRESSION: 1. No acute intracranial abnormality. Electronically signed by: Jaspreet Taylor M.D. 05/09/2019 9:14 PM
--- NOTE | 2019-05-09 21:26 | CT Scan Report ---
CT abd pelvis wo con CLINICAL HISTORY: 84 years-old Male presenting with abd pain. TECHNIQUE: Multidetector CT of the abdomen and pelvis was performed without the use of intravenous co ntrast. IV contrast: None. One or more dose lowering techniques were used consistent with the princip les of ALARA (as low as reasonably achievable), including automatic exposure control, mA or kV adjust ment to individual patient size, and/or use of iterative reconstruction. COMPARISON: 04/17/2019. CT DOSE (mGy.cm): The estimated cumulative dose is 1236.95. 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 Lung bases: Normal heart size. Coronary artery and aortic valve calcification. Small right pleural ef fusion. Resolution of prior right middle lobe consolidation. Extensive reticular opacities with depen dent consolidation and peribronchial vascular thickening. Interlobular septal thickening may be prese nt. Scattered punctate nodular opacities throughout the lungs. Liver: Normal morphology. Normal density. Biliary: No gross biliary ductal dilatation allowing for noncontrast technique. Gallbladder contains gallstones or biliary sludge. Pancreas: Normal noncontrast appearance. Spleen: Normal noncontrast appearance. Adrenal glands: Normal noncontrast appearance. Kidneys and ureters: Dominant renal cyst at the lower pole of the left kidney. Parenchymal atrophy is suggested. Nonspecific bilateral moderate perinephric fat infiltration. Prominent renovascular calci fication. No nephrolithiasis or hydronephrosis. Ureters nondistended. Bladder: Incompletely evaluated secondary to underdistention. Pelvic organs: Normal noncontrast appearance. Bowel: Diverticulosis of the mid sigmoid colon without wall thickening or pericolonic inflammatory ch chago. The appendix is normal. No bowel obstruction. Peritoneal cavity: No free fluid or intraperitoneal gas. Lymph nodes: No gross lymphadenopathy allowing for noncontrast technique. Vasculature: Atherosclerosis of the normal caliber abdominal aorta. Infrarenal IVC filter in place. C alcification in the IVC inferior to the filter may represent calcified chronic thrombus. Abdominal wall: Gynecomastia. Laxity of the abdominal wall. An arteriovenous fistula may be present i n the left upper extremity. Musculoskeletal: Degenerative changes of the spine. Mild height loss of T12, chronic. Total right hip arthroplasty. Mild osteolysis noted along the medial aspect of the femoral component. Degenerative c hanges of the sacral iliac joints. Median sternotomy. IMPRESSION: 1. Allowing for noncontrast technique, no acute intra-abdominal pathology. 2. Cholelithiasis versus biliary sludge 3. Extensive miliary nodules/infiltrates in the lung bases with additional scattered reticular infil trates and dependent atelectasis. These findings may suggest chronic aspiration or infectious bronchi olitis. Other etiologies for such numerous punctate miliary nodules include other infectious etiologi es, sarcoidosis, pneumoconiosis, or less likely metastases. 4. Resolution of prior right middle lobe pneumonia. 5. Small right pleural effusion. Electronically signed by: Jaspreet Taylor M.D. 05/09/2019 9:25 PM
[2019-05-09 21:31] LABS: Alanine Aminotransferase 24 U/L (12-78); Albumin Globulin Ratio 0.4 (0.9-2); Albumin Level 2.2 gm/dl (3.4-5.0); Alkaline Phosphatase 122 U/L (45-117); Aspartate Aminotransferase 22 U/L (15-37); BUN Creatinine Ratio 7.1 (10-20); Bilirubin,Total 0.3 mg/dl (0.2-1); Blood Urea Nitrogen 45 mg/dl (7-18); Calcium 8.6 mg/dl (8.5-10.1); Carbon Dioxide 27 mmol/L (21-32); Chloride 94 mmol/L (98-107); Creatinine Clr Calc Pharmacy 9.7 ml/min; Est GFR (African American) 8.6; Est GFR (Non-African American) 7.4; Globulin 5.8 gm/dl (2.5-4.0); Glucose 165 mg/dl (70-99); Potassium 4.3 mmol/L (3.5-5.1); Sodium 133 mmol/L (136-145); Troponin I < 0.015 ng/ml (0-0.045)
--- NOTE | 2019-05-09 21:35 | CT Scan Report ---
CT lumbar spine wo con CLINICAL HISTORY: 84 years-old Male presenting with altered mental status, weakness. TECHNIQUE: Multidetector CT of the lumbar spine was performed without the use of intravenous contrast . IV contrast: None. One or more dose lowering techniques were used consistent with the principles of ALARA (as low as reasonably achievable), including automatic exposure control, mA or kV adjustment t o individual patient size, and/or use of iterative reconstruction. COMPARISON: Correlation made to CT of the abdomen and pelvis from 04/17/2019. CT DOSE (mGy.cm): The estimated cumulative dose is 1236.95 mGy.cm. FINDINGS: Veterinary Virus Serum Inspector topogram: Orthopedic hardware. Mild S-shaped scoliotic curvature in the lumbar spine. Otherwise normal lumbar lordosis. Extensive mu ltilevel degenerative changes. Mild to moderate vertebral body height loss noted at T12, unchanged si nce the prior exam March. Vertebral bodies in the lumbar spine are maintained. Multilevel moderate to severe intervertebral disc height loss in the lumbar spine, which is largely eccentric due to scolios is. Posterior spondylolytic spurring results in multilevel osseous spinal canal narrowing greatest at L3-4, which is moderate and leaving a residual AP diameter of the thecal sac of approximately 7 mm. Multilevel osseous neural foraminal narrowing which is asymmetric due to scoliosis and severe at guillermo ral levels, on the left at L1-2, the left at L3-4, on the right at L4-5, and on the left at L5-S1. No acute fracture or subluxation. Exuberant multilevel osteophytosis. Visualized portion of the sacrum intact. Degenerative changes of the sacroiliac joints. Atherosclerosis. Paraspinal soft tissues notab le for asymmetric atrophy of the right psoas muscle. IMPRESSION: 1. Extensive multilevel degenerative changes with significant osseous spinal canal narrowing at L3-4 and multilevel severe osseous neural foraminal narrowing. 2. No acute osseous injury of the lumbar spine. 3. Chronic compression deformity of T12. Electronically signed by: Jaspreet Taylor M.D. 05/09/2019 9:34 PM
[2019-05-09 21:37] LABS: Macrocytosis Present
[2019-05-09 21:44] LABS: Giant Platelets 1+; Partial Thromboplastin Time 48.3 Seconds (21.0-31.0)
[2019-05-10] MEDS ORDERED: DOCUSATE SODIUM 100 MG CAP PO PRN (01:07)
[2019-05-10] MEDS ORDERED: OXYCODONE HCL IR 5 MG TAB (IMMEDIATE RELEASE) PO PRN (01:07)
[2019-05-10] MEDS ORDERED: ONDANSETRON INJ 2 MG/ML 2 ML VIAL IV PRN (01:07)
[2019-05-10] MEDS ORDERED: FLUTICASONE PROPIONATE NA SPR 16 GM BTL PRN (01:07)
[2019-05-10] MEDS ORDERED: LIDOCAINE/PRILOCAINE 2.5% EA CRM EXT PRN (01:07)
[2019-05-10] MEDS ORDERED: ACETAMINOPHEN 325 MG TAB PO PRN (01:07)
[2019-05-10] MEDS ORDERED: POLYETHYLENE (MIRALAX) 17 GM PACK PO PRN (01:07)
[2019-05-10] MEDS ORDERED: ACETAMINOPHEN 500 MG TAB PO PRN (01:07)
--- NOTE | 2019-05-10 02:43 | Emergency Department Note ---
Entered by Fredrick Taylor acting as a scribe for History of Present Illness General Chief complaint: Abdominal Pain Time Seen by Provider: 05/09/19 19:29 Source: patient History of Present Illness Onset (ago): hour(s) (this morning) Severity: mild Pain Consistency: + constant Quality: + other (weakness) Associated symptoms: + denies other symptoms (fevers, upper right arm pain) and + other (nausea, chills) The patient is an 84 y/o male who presents to the ED w/ CC of constant, mild, weakness beginning this morning. The patient states he has been here a few times within the past month for sepsis treatment. He reports he was discharged two days ago with a PICC line in his right upper arm for at-home treatment. The patient notes he was fine until today when he became nauseous 1.5 hours after receiving his medication. He states he is now weak as well. The patient reports he has had chills throughout the day. He notes he has not had pain in his upper arm and fevers since he was discharged. The patient states he has been coughing a lot, but it is not abnormal. He reports he is a dialysis patient and has not missed dialysis. The patient also denies a headache, falling, rash, new shortness of breath, and new blood in his stool. The patient is being treated with gram positive cocci and is on daptomycin. Home Medications Home Medications Medication Instructions Recorded Confirmed Type [place]-3 1 tab PO DAILY 06/14/18 05/09/19 History acetaminophen [Tylenol Extra 500 mg PO Q6H PRN 06/14/18 05/09/19 History Strength] carvedilol [Coreg] 12.5 mg PO BID 06/14/18 05/09/19 History cholecalciferol (vitamin D3) 1,000 unit PO DAILY 06/14/18 05/09/19 History [Vitamin D3] omeprazole 20 mg PO DAILY 06/14/18 05/09/19 History Sherley-Neeraj 1 tab PO DAILY 03/18/19 05/09/19 History docusate sodium 100 mg PO BID PRN 03/18/19 05/09/19 History fluticasone propionate [Flonase 1 spray INTRANASAL DAILY PRN 03/18/19 05/09/19 History Allergy Relief] lidocaine-prilocaine 1 applic TOPICAL UD 03/18/19 05/09/19 History sevelamer carbonate 800 mg PO TIDM 03/18/19 05/09/19 History vitamin B complex 1 tab PO DAILY 03/18/19 05/09/19 History warfarin [Coumadin] 2.5 mg PO DAILY 03/18/19 05/09/19 History ranitidine HCl 150 mg PO Q12H PRN #30 cap 03/19/19 05/09/19 Rx ceftriaxone 2 gm IV DAILY #14 ea 05/05/19 05/09/19 Rx Allergies Allergy/AdvReac Type Severity Reaction Status Date / Time aspirin Allergy Unknown . 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) "01/27/09, OD " Atrial flutter (Chronic) Anemia (Chronic) Surgical History S/P ablation of atrial flutter (Chronic) History of total hip replacement (Chronic) History of hydrocelectomy (Chronic) H/O superior vena cava filter placement (Chronic) H/O removal of testicle (Chronic) H/O carotid endarterectomy (Chronic) "2008" S/P aortic valve replacement (Chronic) "bio prosthetic" S/P cardiac cath (Chronic) "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 Other Information That Helps Us Care for You: No Feels Safe at Home: Yes Safety Concerns: Feels Safe At This Time Smoking Status: Never smoker Second Hand Exposure: No ; Hx Alcohol Use: No Hx Substance Use: No Review of Systems See HPI for pertinent positives & negatives. and A total of 10 systems reviewed and were otherwise negative Physical Exam Vital Signs Vital Signs - 24 hr 05/09/19 19:22 05/09/19 19:27 05/09/19 19:28 Temperature 36.7 C Temperature Source Oral Sepsis Recent Fever Within 48 Hours No Sepsis Action Taken by Nursing No Action Required Pulse Rate 88 87 87 Pulse Rate [Right Finger] Pulse Rate from SpO2 Sensor 88 88 Respiratory Rate 15 18 15 Respiratory Effort / Characteristics Non-Labored Respiratory Depth Normal Blood Pressure 142/56 H 142/56 H Blood Pressure [Right Arm] Blood Pressure Mean 84 84 Blood Pressure Mean [Right Arm] Pulse Oximetry 96 96 94 Oxygen Delivery Method Room Air 05/09/19 19:30 05/09/19 20:00 05/09/19 20:30 Temperature Temperature Source Sepsis Recent Fever Within 48 Hours Sepsis Action Taken by Nursing Pulse Rate 86 86 85 Pulse Rate [Right Finger] Pulse Rate from SpO2 Sensor 85 86 85 Respiratory Rate 15 18 17 Respiratory Effort / Characteristics Respiratory Depth Blood Pressure Blood Pressure [Right Arm] Blood Pressure Mean Blood Pressure Mean [Right Arm] Pulse Oximetry 95 93 95 Oxygen Delivery Method 05/09/19 22:34 05/09/19 22:35 05/09/19 23:00 Temperature Temperature Source Sepsis Recent Fever Within 48 Hours Sepsis Action Taken by Nursing Pulse Rate Pulse Rate [Right Finger] 82 Pulse Rate from SpO2 Sensor 83 83 Respiratory Rate 20 Respiratory Effort / Characteristics Respiratory Depth Blood Pressure 138/68 Blood Pressure [Right Arm] 138/68 Blood Pressure Mean 91 Blood Pressure Mean [Right Arm] 91 Pulse Oximetry 95 93 Oxygen Delivery Method General: Chronically-ill appearing older male in no acute distress. HEENT: Normal cephalic atraumatic. Pupils are equal round and reactive to light. Extraocular movements are intact. Oropharynx is pink with moist mucous membranes. No swelling of the mouth lips or tongue. Neck: Supple with a midline trachea. No meningeal signs or stiffness, no JVD or bruits. No Stridor. Chest: Clear to auscultation bilaterally. No wheezes or rhonchi. No increased work of breathing. Heart: regular rate and rhythm. Abdomen: Soft nontender, nondistended without rebound guarding or rigidity. Extremities: No cyanosis clubbing. No calf tenderness or asymmetry. Fistula in the left arm. PICC line in the right arm. Bilateral lower extremity swelling. Spine/Back. Non tender to palpation. No CVA tenderness Skin: Good turgor without rashes. Neurologic exam: Cranial nerves two through 12 are intact. Motor and sensation are intact and symmetrical throughout. Course 1930: Past medical records reviewed. The patient was evaluated in room C01A. A complete history and physical exam was performed. 2058: The patient's family is now at the bedside. They are afraid he has had a mini-stroke because he is so weak. I ordered a CT scan. 2207: Upon reevaluation, I discussed findings and results with him and his family. They verbalized agreement of the treatment plan. 2209: I spoke with Dr. Cisneros of the [facility]. The patient will be evaluated for further management and care. Medical Decision Making Differential Diagnosis Differential diagnosis includes: sepsis, medication side effect, GI bleed, cardiac disease, electrolyte or metabolic abnormality. Medical Records Attestation: I reviewed the patient's medical records. Home Medications Current Medication List: was personally reviewed by me Laboratory Data Attestation: I reviewed the patient's lab results. Result diagrams: 05/09/19 19:46 05/09/19 19:46 Lab Results 05/09/19 05/09/19 05/09/19 Range/Units 19:46 19:46 19:46 WBC 11.22 H (4.8-10.8) K/uL RBC 2.65 L (4.7-6.1) M/uL Hgb 9.6 L (14.0-18.0) g/dL Hct 29.3 L (42-52) % MCV 110.6 H (80-100) fL MCH 36.2 H (25-34) pg MCHC 32.8 (32-36) g/dL RDW Std Deviation 63.8 H (36.4-46.3) fL RDW Coeff of Elvia 16.0 H (11.5-14.5) % Plt Count 212 (130-400) K/uL MPV 11.0 H (7.4-10.4) fL Immature Gran % (Auto) 2.2 % Neut % (Auto) 75.5 % Lymph % (Auto) 9.3 % [place] % (Auto) 11.1 % Eos % (Auto) 1.4 % Baso % (Auto) 0.5 % Immature Gran # (Auto) 0.25 H (0.00-0.02) K/uL Neut # (Auto) 8.47 H (1.4-6.5) K/uL Lymph # (Auto) 1.04 L (1.2-3.4) K/uL [place] # (Auto) 1.24 H (0.11-0.59) K/uL Eos # (Auto) 0.16 (0-0.5) K/uL Baso # (Auto) 0.06 (0-0.2) K/uL Giant Platelets 1+ Macrocytosis Present PT 22.5 H (9.0-12.0) Seconds INR 2.3 H (0.9-1.1) APTT 48.3 H* (21.0-31.0) Seconds PTT Ratio 1.8 Sodium 133 L (136-145) mmol/L Potassium 4.3 (3.5-5.1) mmol/L Chloride 94 L (98-107) mmol/L Carbon Dioxide 27 (21-32) mmol/L Anion Gap 12.0 H (3-11) BUN 45 H (7-18) mg/dl Creatinine 6.29 H* (0.6-1.4) mg/dl Est Cr Clr Drug Dosing 9.7 ml/min Est GFR ( Amer) 8.6 Est GFR (Non-Af Amer) 7.4 BUN/Creatinine Ratio 7.1 L (10-20) Glucose 165 H (70-99) mg/dl POC Lactic Acid Alvin (0.90-1.70) mmol/L Calcium 8.6 (8.5-10.1) mg/dl Total Bilirubin 0.3 (0.2-1) mg/dl AST 22 (15-37) U/L ALT 24 (12-78) U/L Alkaline Phosphatase 122 H (45-117) U/L Troponin I < 0.015 (0-0.045) ng/ml Total Protein 8.0 (6.4-8.2) gm/dl Albumin 2.2 L (3.4-5.0) gm/dl Globulin 5.8 H (2.5-4.0) gm/dl Albumin/Globulin Ratio 0.4 L (0.9-2) Lipase 313 (73-393) U/L 05/09/19 Range/Units 20:40 WBC (4.8-10.8) K/uL RBC (4.7-6.1) M/uL Hgb (14.0-18.0) g/dL Hct (42-52) % MCV (80-100) fL MCH (25-34) pg MCHC (32-36) g/dL RDW Std Deviation (36.4-46.3) fL RDW Coeff of Elvia (11.5-14.5) % Plt Count (130-400) K/uL MPV (7.4-10.4) fL Immature Gran % (Auto) % Neut % (Auto) % Lymph % (Auto) % [place] % (Auto) % Eos % (Auto) % Baso % (Auto) % Immature Gran # (Auto) (0.00-0.02) K/uL Neut # (Auto) (1.4-6.5) K/uL Lymph # (Auto) (1.2-3.4) K/uL [place] # (Auto) (0.11-0.59) K/uL Eos # (Auto) (0-0.5) K/uL Baso # (Auto) (0-0.2) K/uL Giant Platelets Macrocytosis PT (9.0-12.0) Seconds INR (0.9-1.1) APTT (21.0-31.0) Seconds PTT Ratio Sodium (136-145) mmol/L Potassium (3.5-5.1) mmol/L Chloride (98-107) mmol/L Carbon Dioxide (21-32) mmol/L Anion Gap (3-11) BUN (7-18) mg/dl Creatinine (0.6-1.4) mg/dl Est Cr Clr Drug Dosing ml/min Est GFR ( Amer) Est GFR (Non-Af Amer) BUN/Creatinine Ratio (10-20) Glucose (70-99) mg/dl POC Lactic Acid Alvin 1.40 (0.90-1.70) mmol/L Calcium (8.5-10.1) mg/dl Total Bilirubin (0.2-1) mg/dl AST (15-37) U/L ALT (12-78) U/L Alkaline Phosphatase (45-117) U/L Troponin I (0-0.045) ng/ml Total Protein (6.4-8.2) gm/dl Albumin (3.4-5.0) gm/dl Globulin (2.5-4.0) gm/dl Albumin/Globulin Ratio (0.9-2) Lipase (73-393) U/L Imaging Data Radiologist's Impression: Radiology results as stated below per my review and the radiologist's interpretation: CT lumbar spine wo con CLINICAL HISTORY: 84 years-old Male presenting with altered mental status, weakness. TECHNIQUE: Multidetector CT of the lumbar spine was performed without the use of intravenous contrast. IV contrast: None. One or more dose lowering techniques were used consistent with the principles of ALARA (as low as reasonably achievable), including automatic exposure control, mA or kV adjustment to individual patient size, and/or use of iterative reconstruction. COMPARISON: Correlation made to CT of the abdomen and pelvis from 04/17/2019. CT DOSE (mGy.cm): The estimated cumulative dose is 1236.95 mGy.cm. 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 Mild S-shaped scoliotic curvature in the lumbar spine. Otherwise normal lumbar lordosis. Extensive multilevel degenerative changes. Mild to moderate vertebral body height loss noted at T12, unchanged since the prior exam March. Vertebral bodies in the lumbar spine are maintained. Multilevel moderate to severe interve rtebral disc height loss in the lumbar spine, which is largely eccentric due to scoliosis. Posterior spondylolytic spurring results in multilevel osseous spinal canal narrowing greatest at L3-4, which is moderate and leaving a residual AP diameter of the thecal sac of approximately 7 mm. Multilevel osseous neural foraminal narrowing which is asymmetric due to scoliosis and severe at several levels, on the left at L1-2, the left at L3-4, on the right at L4-5, and on the left at L5-S1. No acute fracture or subluxation. Exuberant multilevel osteophytosis. Visualized portion of the sacrum intact. Degenerative changes of the sacroiliac joints. Atherosclerosis. Paraspinal soft tissues notable for asymmetric atrophy of the right psoas muscle. IMPRESSION: 1. Extensive multilevel degenerative changes with significant osseous spinal canal narrowing at L3-4 and multilevel severe osseous neural foraminal narrowing. 2. No acute osseous injury of the lumbar spine. 3. Chronic compression deformity of T12. Electronically signed by: Jaspreet Taylor M.D. 05/09/2019 9:[address] head/brain wo con CLINICAL HISTORY: 84 years-old Male presenting with altered mental status and weakness. TECHNIQUE: Multidetector CT imaging of the head was performed without the use of intravenous contrast. IV contrast: None. One or more dose lowering techniques were used consistent with the principles of ALARA (as low as reasonably achievable), including automatic exposure control, mA or kV adjustment to individual patient size, and/or use of iterative reconstruction. COMPARISON: None. CT DOSE (mGy.cm): The estimated cumulative dose is 1176.15 mGy.cm. 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 Proportional ventricular and sulcal prominence, likely age-related parenchymal volume loss. No hemorrhage. Brain parenchyma normal in appearance with preserved myrick-white differentiation. No acute territorial infarct. No mass effect or midline shift. No extra-axial fluid collection. Paranasal sinuses and mastoid air cells clear. Calvarium intact. Intracranial atherosclerosis noted. IMPRESSION: 1. No acute intracranial abnormality. Electronically signed by: Jaspreet Taylor M.D. 05/09/2019 9:[address] abd pelvis wo con CLINICAL HISTORY: 84 years-old Male presenting with abd pain. TECHNIQUE: Multidetector CT of the abdomen and pelvis was performed without the use of intravenous contrast. IV contrast: None. One or more dose lowering techniques were used consistent with the principles of ALARA (as low as reasonably achievable), including automatic exposure control, mA or kV adjustment to individual patient size, and/or use of iterative reconstruction. COMPARISON: 04/17/2019. CT DOSE (mGy.cm): The estimated cumulative dose is 1236.95. 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 Lung bases: Normal heart size. Coronary artery and aortic valve calcification. Small right pleural effusion. Resolution of prior right middle lobe consolidation. Extensive reticular opacities with dependent consolidation and peribronchial vascular thickening. Interlobular septal thickening may be present. Scattered punctate nodular opacities throughout the lungs. Liver: Normal morphology. Normal density. Biliary: No gross biliary ductal dilatation allowing for noncontrast technique. Gallbladder contains gallstones or biliary sludge. Pancreas: Normal noncontrast appearance. Spleen: Normal noncontrast appearance. Adrenal glands: Normal noncontrast appearance. Kidneys and ureters: Dominant renal cyst at the lower pole of the left kidney. Parenchymal atrophy is suggested. Nonspecific bilateral moderate perinephric fat infiltration. Prominent renovascular calcification. No nephrolithiasis or hydronephrosis. Ureters nondistended. Bladder: Incompletely evaluated secondary to underdistention. Pelvic organs: Normal noncontrast appearance. Bowel: Diverticulosis of the mid sigmoid colon without wall thickening or p ericolonic inflammatory change. The appendix is normal. No bowel obstruction. Peritoneal cavity: No free fluid or intraperitoneal gas. Lymph nodes: No gross lymphadenopathy allowing for noncontrast technique. Vasculature: Atherosclerosis of the normal caliber abdominal aorta. Infrarenal IVC filter in place. Calcification in the IVC inferior to the filter may represent calcified chronic thrombus. Abdominal wall: Gynecomastia. Laxity of the abdominal wall. An arteriovenous fistula may be present in the left upper extremity. Musculoskeletal: Degenerative changes of the spine. Mild height loss of T12, chronic. Total right hip arthroplasty. Mild osteolysis noted along the medial aspect of the femoral component. Degenerative changes of the sacral iliac joints. Median sternotomy. IMPRESSION: 1. Allowing for noncontrast technique, no acute intra-abdominal pathology. 2. Cholelithiasis versus biliary sludge 3. Extensive miliary nodules/infiltrates in the lung bases with additional sca ttered reticular infiltrates and dependent atelectasis. These findings may suggest chronic aspiration or infectious bronchiolitis. Other etiologies for such numerous punctate miliary nodules include other infectious etiologies, sarcoidosis, pneumoconiosis, or less likely metastases. 4. Resolution of prior right middle lobe pneumonia. 5. Small right pleural effusion. Electronically signed by: Jaspreet Taylor M.D. 05/09/2019 9:25 PM XR chest 1V portable CLINICAL HISTORY: 84 years-old Male presenting with abd pain. TECHNIQUE: Portable upright AP view of the chest was obtained. COMPARISON: 05/01/2019. FINDINGS: Median sternotomy wires and prosthetic aortic valve. Atherosclerosis of the thoracic aorta. Cardiac silhouette mildly enlarged. Decreased perihilar and bibasilar opacity though there is some degree of opacity remaining on the right lung base. Trace right pleural effusion may be present. Degenerative changes of the thoracic spine. Upper abdomen normal. IMPRESSION: 1. Decreasing perihilar and bibasilar opacities, although there is some degree of persistent infiltrate suspected at the right lung base. 2. Questionable right pleural effusion. 3. Cardiomegaly. No zoë pulmonary edema. Electronically signed by: Jaspreet Taylor M.D. 05/09/2019 7:54 PM ECG Data Attestation: I personally reviewed and interpreted this ECG as follows: Indication: weakness Rate (beats per minute): 88 Rhythm: normal sinus Findings: + 1st degree AV block and + left axis deviation; no ST depression, no ST elevation and no acute ischemic change Comparison ECG Date: from (05/01/2019) Change: no significant change Blood Pressure Blood Pressure Findings: Elevated blood pressure Blood Pressure Disposition: further management by hospitalist CLAIRE Narrative This patient comes in as described above appears placed in room C1. He has a very complex medical history particularly lately he was diagnosed and is currently being treated for gram-positive sepsis. He has a PICC line in his right arm. He is receiving ceftriaxone at home. He has had a couple dosages prior to being discharged and he had a dose today about an hour later he had abdominal pain and attributed to the antibiotic. He had no rash or any other symptoms. He symptoms had some ongoing back pain he says he just does not feel very well he feels weak he had no fever. IV access established and blood work was obtained. His white blood count is 11.2 which is actually down from the previous one. He does have some baseline anemia. He has baseline renal failure dialysis. No acute electrolyte or metabolic abnormalities. I did a CAT scan of his head as they were family is concerned about a stroke as he is been weak lately generalized. This was negative. CAT scan of the abdomen and lumbar spine do not show any acute findings to explain his admitted/observe for further treatment evaluation. I do think I would check his symptoms. Family feels he is too weak to go home. I do not think is likely reaction to the antibiotic. The patient will be Impression & Plan Weakness, Abdominal pain, Back pain, End-stage renal disease (ESRD) Discharge Plan Visit Data *Final* Discharge Date/Time: 05/10/19 00:17 Chief Complaint: Abdominal Pain ED Provider: Sherman,Rosales D Discharge Problem: Weakness, Abdominal pain, Back pain, End-stage renal disease (ESRD) Patient Disposition: Admitted As Inpatient Discharge Instructions Interventions: ED Discharge Assessment Last Done: 05/10/19 00:17 The carolinaibe's documentation has been prepared under my direction and personally reviewed by me in its entirety. I confirm that the note above accurately reflects all work, treatment, procedures, and medical decision making performed by me.
--- NOTE | 2019-05-10 02:58 | History and Physical Report ---
DATE OF ADMISSION: 05/09/2019 CHIEF COMPLAINT: Back pain, hip pain and abdominal discomfort. HISTORY OF PRESENT ILLNESS: This is an 84-year-old male with past medical history significant for chronic right-sided heart failure as per records ejection fraction of 62% to 65%, nonobstructive coronary artery disease, atrial flutter, status post ablation, history of aortic valve replacement, carotid artery disease, status post surgery, hypertension, history of pulmonary embolism,DVT on anticoagulation, type 2 diabetes, diet controlled, chronic anemia, baseline hemoglobin 10-11, chronic thrombocytopenia who recently had a treatment for pneumonia and also was admitted to hospital and found to have bacteremia with MSSA and discharged home on Rocephin 2 g b.i.d. for 14 days and was discharged on 05/07/2019. The patient lives with his , says after he got his antibiotic today since one hour later he eas not feeling well , having back pain, right flank pain, abdominal discomfort, feeling weak and tired and his appetite has also been down. His ambulatory status is poor. He is dragging his right leg while ambulating. Generally, he does not ambulate much at home and lower extremity legs get swelling up and down and today they are a little more swollen. Currently, he has pain in the right heel. So, the family brought him here. His imaging studies are unremarkable except showing some extensive nodules in the lungs. The patient states he has cough. Denies any fever or chills. Denies any chest pain. Has shortness of breath. No headache. No difficulty swallowing. No nausea. No vomiting. He has some blood in the stools. He thinks it is from the bleeding hemorrhoids. Currently, he is resting comfortably and hemodynamically stable. Because of ongoing weakness, flank pain, back pain and questionable reaction to his antibiotic, we are going to admit the patient in the hospital. ALLERGIES: ASPIRIN AND SALICYLATES. PAST MEDICAL HISTORY: As mentioned above. PAST SURGICAL HISTORY: AV access, colonoscopy, hydrocele repair, cyst removed from the tailbone, bioprosthetic aortic valve replacement, right-sided carotid endarterectomy, right total hip replacement and vena cava filter placement. MEDICATIONS: The patient is on Zantac 150 mg p.o. daily, Imodium p.r.n., vitamin D 2000 units p.o. daily, omeprazole 20 mg p.o. daily, lidocaine, prilocaine p.r.n., Coreg 12.5 mg p.o. b.i.d., Coumadin 2.5 mg daily, Renvela 800 mg p.o. t.i.d., Tylenol 500 mg p.r.n., Flonase p.r.n., Colace 100 mg p.o. b.i.d. p.r.n. and omega-3 1000 mg p.o. daily. FAMILY HISTORY: Significant for mother has chronic kidney disease and hypertension. Brother has stroke and hypertension. SOCIAL HISTORY: and lives with his . No smoking. No alcohol. No drug use. REVIEW OF SYMPTOMS: As per HPI. Rest of review of systems is negative. PHYSICAL EXAMINATION: GENERAL: The patient is alert and awake, not in acute distress. VITAL SIGNS: Temperature 36.7, pulse 82, respiratory rate 20, blood pressure 138/60 and oxygen 93% on room air. HEENT: No pallor. No icterus. Pupils are equal, round and reactive to light. NECK: No JVD. No neck masses. No carotid bruits. CARDIOVASCULAR: S1, S2 heard. Regular rate and rhythm. No murmur. No gallop. RESPIRATORY SYSTEM: Normal AP diameter. No accessory muscle use. No wheezing. No crackles. ABDOMEN: Soft. Bowel sounds present. Mild abdominal discomfort. No guarding. No rigidity. No distention. CENTRAL NERVOUS SYSTEM: Cranial nerves II through XII are grossly nonfocal. EXTREMITIES: Bilateral lower extremity gross edema present. No erythema seen. Somewhat warm on palpation. LABORATORY DATA: WBC 11.2, hemoglobin 10.6, hematocrit 29.3 and platelets 212. PT 22.5. INR 2.3. Sodium 133, potassium 4.8, chloride 94, CO2 of 27, BUN 45, creatinine 6.2, serum glucose 165, point of care lactic acid 1.4, calcium 8.6, total bilirubin 0.3, AST 22, ALT 24 and alkaline phosphatase 102. Troponin I less than 0.015. Lipase 313. Lumbar spine CT, extensive multilevel degenerative changes with significant osseous spinal canal narrowing at L3-L4, multilevel osseous neural foraminal narrowing, chronic compression deformity of T12. Head CT, no acute intracranial abnormality. CT of abdomen and pelvis, no acute intra-abdominal pathology, cholelithiasis versus biliary sludge, extensive miliary nodules, infiltrates in the lung bases, scattered infiltrates and dependent atelectasis, this finding may suggest chronic aspiration or infectious bronchiolitis. Other etiologies for such numerous punctate biliary nodules include other infectious etiology such as sarcoidosis, pneumoconiosis or less likely metastasis. Resolution of right middle lobe pneumonia, small right pleural effusion. Chest x-ray, questionable right pleural effusion, cardiomegaly, decrease in perihilar and bibasilar opacities. Electrocardiogram, sinus rhythm with first-degree AV block at a rate of [address] changes seen. ASSESSMENT AND PLAN: This 84-year-old male who was recently in the hospital for bacteremia, discharged on Rocephin 2 g daily for 2 weeks on 05/07/2019 who comes back with abdominal pain, back pain and right hip pain. 1. Abdominal discomfort, back pain and right hip pain, . This started one hour after taking antibiotic Rocephin today, but he has had Rocephin in the hospital. We will observe. Continue I.V. Rocephin for now and see. We will get physical therapy and occupational therapy evaluation. Pain control. 2. Lung lesions on the CT of the abdomen and pelvis shows multiple nodules and infiltrates in the lung bases. CT scan ok on last admission. 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 3. Cholelithiasis versus biliary sludge on CT abdomen and pelvis. We will get gallbladder ultrasound. 4. Ambulatory dysfunction. The patient having right hip and back pain. Pain control. We will get physical therapy and occupational therapy evaluation.Severe degenerative disease of lumbar spine on ct scan. Will consult ortho. 5. Bacteremia with methicillin-susceptible Staphylococcus aureus, on Rocephin 2 g daily for 2 weeks. Questionable reaction to Rocephin. continue to monitor for now. 6. History of atrial flutter. s/p ablation., on Coumadin. INR is 2.3. 7. History of deep venous thrombosis and pulmonary embolism, status post inferior vena cava. On Coumadin. INR 2.3. 8. End-stage renal disease, on hemodialysis.Nephrology consult. 9. Diabetes, diet controlled. We will follow HbA1c levels. 10. Polymyalgia rheumatica, on prednisone. 11. Deep venous thrombosis prophylaxis, on Coumadin. DISPOSITION: Admit to Medical floor. Level 1 full code. Physical therapy and occupational therapy prior to discharge. Social Service to help with discharge planning. INDU
[2019-05-10 05:50] LABS: Hematocrit (blood only) 30.7 % (42-52); Hemoglobin 10.4 g/dL (14.0-18.0); Mean Corpuscular Hgb Conc 33.9 g/dL (32-36); Mean Corpuscular Volume 110.8 fL (80-100); Mean Platelet Volume 10.6 fL (7.4-10.4); Platelet Count 239 K/uL (130-400); RDW Coefficient of Variation 15.8 % (11.5-14.5); Red Blood Count 2.77 M/uL (4.7-6.1); White Blood Count 13.78 K/uL (4.8-10.8)
[2019-05-10 06:14] LABS: Basophils # (auto) 0.06 K/uL (0-0.2); Basophils % (auto) 0.4 %; Eosinophils # (auto) 0.25 K/uL (0-0.5); Eosinophils % (auto) 1.8 %; Immature Granulocytes # (auto) 0.31 K/uL (0.00-0.02); Immature Granulocytes % (auto) 2.2 %; Lymphocytes # (auto) 1.44 K/uL (1.2-3.4); Lymphocytes % (auto) 10.4 %; Macrocytosis Present; Monocytes # (auto) 1.19 K/uL (0.11-0.59); Monocytes % (auto) 8.6 %; Neutrophils # (auto) 10.53 K/uL (1.4-6.5); Neutrophils % (auto) 76.6 %
[2019-05-10 06:23] LABS: INR 2.4 (0.9-1.1); Prothrombin Time 23.2 Seconds (9.0-12.0)
[2019-05-10 06:30] LABS: BUN Creatinine Ratio 6.8 (10-20); Calcium 8.3 mg/dl (8.5-10.1); Creatinine Clr Calc Pharmacy 8.7 ml/min; Est GFR (African American) 7.7; Est GFR (Non-African American) 6.7; Magnesium 2.3 mg/dl (1.8-2.4); Potassium 4.3 mmol/L (3.5-5.1)
[2019-05-10 07:30] LABS: Estimated Average Glucose 163 mg/dl; Hemoglobin A1C 7.3 % (4.5-5.6)
--- NOTE | 2019-05-10 08:52 | Consultation ---
Date of Consultation May 10, 2019 Assessment & Plan (1) Back pain: Today he reports most of his pain is actually thoracic area he reports due to severe claustrophobia he does not want to proceed with an MRI. We will therefore in addition to his lumbar CT scan pursue thoracic CT scan without contrast. The first thing I would like to rule out is any type of discitis or osteomyelitis in light of his recent sepsis. This was not found to be evident on his lumbar scan. He he has multilevel degenerative changes and stenosis. Unfortunately in light of his acute medical issues there is no surgical intervention warranted at this point time. Interventional pain management would also not be an option in light of his sepsis. May consider pain management consult for medication recommendations. Dr. Duran is out of town until Sunday. He will be able to review both thoracic and CT scans for final recommendations. Supervising Physician Co-Signing Physician Notes Dr. Dwain Duran History of Present Illness Requesting Physician: Dr. Lancaster Reason for Consultation: Back pain Attending Physician: Gerard Lancaster MD History of Present Illness This is a pleasant 84-year-old gentleman that we are asked to see in consultation regards to back pain. He states he is always had some back pain. Currently describes it both along the thoracic and lumbar area. States it has been progressively worsening over the past couple days specifically about an hour or 2 after he had his IV Rocephin dose. Currently has a PICC line in place due to recent sepsis and was actually discharged home on May 07, 2019. He emanates with a walker or 2 canes at home does note lower extremity swelling but no true radicular pain. He reports at home his will typically give him Tylenol and apply some icy hot which is effective after about an hour. He has an extensive medical history significant for CHF, aortic valve replacement, diabetes, recent bacteremia with MSSA positive and currently on IV Rocephin, DVT/PE. Allergies Allergy/AdvReac Type Severity Reaction Status Date / Time aspirin Allergy Unknown . Verified 05/26/19 17:21 salicylates Allergy Unknown UNKNOWN Verified 05/26/19 17:21 Home Medications Home Medications Medication Instructions Recorded Confirmed Type acetaminophen [Tylenol Extra 500 mg PO Q6H PRN 06/14/18 05/26/19 History Strength] cholecalciferol (vitamin D3) 1,000 unit PO DAILY 06/14/18 05/26/19 History [Vitamin D3] omeprazole 20 mg PO DAILY 06/14/18 05/26/19 History Sherley-Neeraj 1 tab PO DAILY 03/18/19 05/26/19 History docusate sodium 100 mg PO BID PRN 03/18/19 05/26/19 History fluticasone propionate [Flonase 1 spray INTRANASAL DAILY PRN 03/18/19 05/26/19 History Allergy Relief] sevelamer carbonate 800 mg PO BIDM 03/18/19 05/26/19 History warfarin [Coumadin] 2.5 mg PO DAILY 03/18/19 05/26/19 History metoprolol succinate 50 mg PO DAILY 05/21/19 05/26/19 History omega 3-[id number]-omz-fish oil [Fish Oil] 1 cap PO DAILY 05/21/19 05/26/19 History prednisone 10 mg PO QAM 05/26/19 05/26/19 History Patient History Medical History GERD (gastroesophageal reflux disease) (Chronic) ESRD (end stage renal disease) on dialysis (Chronic) Dyslipidemia (Chronic) HTN (hypertension) (Chronic) Type 2 diabetes mellitus (Chronic) Pulmonary embolus (Chronic) Aortic valve insufficiency (Chronic) DVT (deep venous thrombosis) (Chronic) " 01/13/09 left leg " 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) "01/27/09, OD " Atrial flutter (Chronic) Anemia (Chronic) Surgical History S/P ablation of atrial flutter (Chronic) History of total hip replacement (Chronic) History of hydrocelectomy (Chronic) H/O superior vena cava filter placement (Chronic) H/O removal of testicle (Chronic) H/O carotid endarterectomy (Chronic) "2008" S/P aortic valve replacement (Chronic) "bio prosthetic" S/P cardiac cath (Chronic) "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" Family History Mother Hypertension Brother Stroke Social History Preferred Language: Swiss Communication Ability: Effective Visual Impairment: Partially Limited 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 Other Information That Helps Us Care for You: No Feels Safe at Home: Yes Safety Concerns: Feels Safe At This Time Smoking Status: Never smoker Do You Dip or Chew Tobacco: No ; Second Hand Exposure: No ; Hx Alcohol Use: No Hx Substance Use: No Review of Systems Review of Systems: All systems reviewed & are unremarkable except as noted in HPI & below Physical Exam Physical Exam: Patient sitting in a chair alert and oriented and cooperative. Focused on the musculoskeletal system. He is able to lean forward for me so I may inspect his thoracal lumbar spine. He has pain upon palpation along the midline mid to lower thoracic region. Nontender to palpation percussion throughout the lumbar spine. Strength is 5/5 bilateral lower extremities. Significant edema noted bilateral lower extremities. Calves are soft nontender. Constitutional: WD/WN, vitals as above Eyes: normal visual razo by confrontation ENMT: external ear and nose normal, oropharynx normal Neck: normal visual inspection Respiratory: normal respiratory effort Cardiovascular: Extremities: + edema Chest (Breasts): Chest: normal inspection of chest Gastrointestinal (Abdomen): Inspection/Auscultation: abdomen normal to inspection Musculoskeletal: no cyanosis or clubbing, extremities motor strength 5/5 Extremities: strength 5/5 throughout Skin: no rashes, warm and dry Neurologic: patellar DTR's 2+ bilat, sensation intact CN's II-XI intact bilaterally and moves all extremities Psychiatric: A+Ox3, euthymic affect Results & Data Vital Signs (Past 12 Hours) Vital Signs Temp Pulse Pulse Resp BP BP Pulse Ox 05/10/19 07:04 36.7 C 117 H 16 131/67 94 05/10/19 00:40 36.9 C 87 16 174/80 H 94 05/10/19 00:17 80 19 144/53 H 92 05/09/19 23:00 93 05/09/19 22:35 82 20 138/68 95 05/09/19 22:34 138/[address] Scan Report Patient: KIMBERLY LUNDBERG OAdmit Date: 05/09/19 MR#: [id number]: [address] Acct ID:[id number]: [facility] Zip[facility] [place] [address] Age: 84Location: ED Sex: M Room/Bed: Att Phy: Diagnosis: ABD PAIN Rosangela Phy: Zach Gooden, MDService Date: 05/09/19 Fam Phy: Interpreting Phy: Jaspreet Taylor MD Admit Phy: Ordering Phy: Rosales Chakraborty M.D. cc: ~ CT lumbar spine wo con CLINICAL HISTORY: 84 years-old Male presenting with altered mental status, weakness. TECHNIQUE: Multidetector CT of the lumbar spine was performed without the use of intravenous contrast. IV contrast: None. One or more dose lowering techniques were used consistent with the principles of ALARA (as low as reasonably achievable), including automatic exposure control, mA or kV adjustment to individual patient size, and/or use of iterative reconstruction. COMPARISON: Correlation made to CT of the abdomen and pelvis from 04/17/2019. CT DOSE (mGy.cm): The estimated cumulative dose is 1236.95 mGy.cm. 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 Mild S-shaped scoliotic curvature in the lumbar spine. Otherwise normal lumbar lordosis. Extensive multilevel degenerative changes. Mild to moderate vertebral body height loss noted at T12, unchanged since the prior exam March. Vertebral bodies in the lumbar spine are maintained. Multilevel moderate to severe intervertebral disc height loss in the lumbar spine, which is largely eccentric due to scoliosis. Posterior spondylolytic spurring results in multilevel osseous spinal canal narrowing greatest at L3-4, which is moderate and leaving a residual AP diameter of the thecal sac of approximately 7 mm. Multilevel osseous neural foraminal narrowing which is asymmetric due to scoliosis and severe at several levels, on the left at L1-2, the left at L3-4, on the right at L4-5, and on the left at L5-S1. No acute fracture or subluxation. Exuberant multilevel osteophytosis. Visualized portion of the sacrum intact. Degenerative changes of the sacroiliac joints. Atherosclerosis. Paraspinal soft tissues notable for asymmetric atrophy of the right psoas muscle. IMPRESSION: 1. Extensive multilevel degenerative changes with significant osseous spinal canal narrowing at L3-4 and multilevel severe osseous neural foraminal ciera rowing. 2. No acute osseous injury of the lumbar spine. 3. Chronic compression deformity of T12. Electronically signed by: Jaspreet Taylor M.D. 05/09/2019 9:34 PM (1) Back pain Back pain laterality: midline Back pain location: low back pain Chronicity: acute Sciatica presence: without sciatica Qualified Code(s): M54.5 - Low back pain
[2019-05-10] MEDS ORDERED: NON-FORMULARY MEDICATION (Ceftriaxone 2 GM) IV SCH (09:00)
[2019-05-10] MEDS ORDERED: cefTRIAXone SODIUM 2,000 MG in DEXTROSE 5% 50 ML IV SCH (09:00)
[2019-05-10] MEDS ORDERED: B COMPLEX VITAMIN C FOLIC ACID PO SCH (09:00)
[2019-05-10] MEDS ORDERED: HEPARIN SOD (PORCINE) 1000 UNIT/ML 10 ML VIAL IV ONE (09:30)
[2019-05-10] MEDS ORDERED: SODIUM CHLORIDE 0.9% 1000ML 1,000 ML IV PRN (09:30)
[2019-05-10] MEDS: PANTOprazole 40 MG TAB PO SCH (09:43)
[2019-05-10] MEDS: SEVELAMER HCL 800 MG TABLET PO SCH ×3 (09:43→16:06)
[2019-05-10] MEDS: VITAMIN B COMPLEX TAB PO SCH (09:43)
[2019-05-10] MEDS: CHOLECALCIFEROL 1,000 UNITS TAB PO SCH (09:43)
[2019-05-10] MEDS ORDERED: EPOETIN ALFA 10,000 UNITS/ML VIAL IV SCH (09:45)
[2019-05-10] MEDS: CARVEDILOL 12.5 MG TAB PO SCH ×2 (09:56→21:33)
--- NOTE | 2019-05-10 09:57 | CT Scan Report ---
CT SCAN OF THE CHEST WITHOUT IV CONTRAST; CT SCAN OF THE THORACIC SPINE WITHOUT IV CONTRAST CLINICAL HISTORY: Pulmonary nodules. Thoracic back pain. Sepsis. COMPARISON STUDY: Chest CT scan dated 05/01/2019. TECHNIQUE: CT scan of the thorax was performed from the thoracic inlet to the upper abdomen. CT scan of the thoracic spine is performed from the lower cervical spine to the upper lumbar spine. Images f or both examinations are reviewed in the axial, sagittal, and coronal planes. IV contrast was not adm inistered for this examination as per the referring clinician. A dose lowering technique was utilize d adhering to the principles of ALARA. The examinations are degraded by motion artifact. There is als o streak artifact from the arms which could not be elevated above the chest. CT DOSE: 1994.79 mGy.cm FINDINGS: Thyroid: Imaged portions of the thyroid gland are normal in size and attenuation. Thoracic aorta: There is atherosclerotic calcification of the thoracic aorta, which is normal in moshe davidson and demonstrates standard 3-vessel arch anatomy. Heart: The patient is status post midline sternotomy. The heart is top normal in size and without per icardial effusion. The coronary arteries are densely calcified. The pulmonary trunk is normal in moshe davidson. Lungs and pleural spaces: Evaluation of the lung parenchyma is degraded by motion artifact. The trach ea and central airways are clear. There are small right and trace left pleural effusions with bibasil ar atelectasis. Fluid is seen tracking along the right major fissure. There is airspace consolidation seen at the right lung base in the right middle and lower lobes. Extensive foci of tree-in-bud nodul arity are scattered throughout both lungs. This appears minimally improved from the 05/01/2019 examinat ion. Scattered calcified granulomas are observed. Mediastinum: There are scattered subcentimeter mediastinal lymph nodes. These are not pathologically enlarged by size criteria. Jinny: Not well assessed without IV contrast. Axillae: There is no axillary lymphadenopathy. Upper abdomen: The liver is cirrhotic in morphology with a nodular surface contour. Partially visuali zed upper abdominal viscera is otherwise grossly unremarkable. Skeletal structures: The skeletal structures are osteopenic. Arthritic changes noted in the shoulders , with bursal fluid seen on the left. No lytic or blastic bony lesions are seen. See below for dedica marina assessment of the thoracic spine. THORACIC SPINE: There is no evidence of fracture. Mild anterior wedging of T12 is similar to previous . Vertebral body height is otherwise maintained throughout the thoracic spine. Alignment is preserved . Anterior osteophytes are seen throughout. Mild hyperkyphosis is observed. The transverse and spinou s processes are intact. Multilevel degenerative disc space narrowing is noted. There is no evidence o f large disc herniation or high-grade central canal stenosis by CT. Posterior disc osteophyte complex es are seen at most levels from T7-T8 through T12-L1. These are largest at T11-T12 and T12-L1. A teena ngioma is noted in the body of T12. The paraspinous soft tissues are within normal limits. IMPRESSION: 1. Streak and motion compromised examinations. 2. Small right and trace left pleural effusions with fluid seen tracking along the major fissure. 3. Dependent airspace consolidation is again seen at the right lung base. Additionally, there are num erous foci of tree-in-bud nodularity scattered throughout both lungs. The appearance suggests an infe ctious/inflammatory pneumonitis. This may be atypical/chronic. Consider pulmonology follow-up. This a ppears minimally improved from the 05/01/2019 examination. 4. No acute osseous abnormality is seen involving the thoracic spine. 5. There is a mild chronic compression deformity of T12. Spondylotic change of the thoracic spine is detailed above. 6. Nodularity of the hepatic surface contour suggests early change of cirrhosis. 7. Additional findings as above. Electronically signed by: Guilherme Cummings M.D. 05/10/2019 9:55 AM
--- NOTE | 2019-05-10 10:00 | Ultrasound Report ---
ULTRASOUND RIGHT UPPER QUADRANT ABDOMEN CLINICAL HISTORY: Abnormal gallbladder seen by CT. COMPARISON STUDY: Abdominal CT dated 05/09/2019. TECHNIQUE: Real-time, grayscale, and color flow sonography of the right upper quadrant of the abdomen was performed. Images are reviewed in the transverse and longitudinal planes. FINDINGS: Liver: The liver is cirrhotic in morphology and heterogeneous in echotexture. The liver measures 15.7 cm in length. There is nodularity of the hepatic surface contour. There is no intrahepatic biliary d uctal dilatation. The main portal vein is patent. Gallbladder: Biliary sludge is identified. No shadowing gallstones are seen. There is no gallbladder wall thickening or pericholecystic fluid. A sonographic Liu's sign is reportedly absent. The commo n bile duct measures up to 0.6 cm in diameter. Pancreas: Not visualized due to overlying bowel gas. Right kidney: The right kidney is atrophic and echogenic consistent with medical renal disease. There is no hydronephrosis. Ascites: None. IMPRESSION: 1. Cirrhotic liver morphology. 2. Biliary sludge is identified. No shadowing gallstones are seen and there is no sonographic evidenc e of acute cholecystitis. 3. The pancreas was not visualized due to overlying bowel gas. Electronically signed by: Guilherme Cummings M.D. 05/10/2019 9:58 AM
[2019-05-10] MEDS: HEPARIN SOD (PORCINE) 1000 UNIT/ML 10 ML VIAL IV SCH ×3 (12:05→12:10)
[2019-05-10] MEDS: WARFARIN SOD 2.5 MG TAB PO SCH (16:36)
[2019-05-10] MEDS: HYDROCORTISONE SOD 50 MG in SYRINGE 0 ML IV SCH ×2 (16:37→23:49)
--- NOTE | 2019-05-10 16:59 | Hospitalist Progress Note ---
Date of Service May 10, 2019 Assessment & Plan (1) Back pain: Has history of chronic back pain and was admitted with increasing back pain with radiation to legs Associated with abdominal pain Doubt any association with intravenous ceftriaxone which he has been taking since his recent admission CT scan of the lumbar and thoracic spine noted multilevel disc disease with foraminal stenosis Appreciate Ortho input and recommendation Present on Admission?: Yes (2) Abdominal pain: No nausea and/or vomiting (3) Gram positive sepsis: Recent diagnosis of gram-positive Has been on intravenous ceftriaxone 2 g daily We will continue for now to finish the course (4) End-stage renal disease (ESRD): Complains to have been bloated feeling with leg swelling Appreciate nephrology input and will continue hemodialysis (5) PMR (polymyalgia rheumatica): Noted to have polymyalgia rheumatica as per last admission Has not been documented in epic Was getting 10 mg prednisone which was discontinued on discharge May have flareup of polymyalgia rheumatica Will try hydrocortisone 50 mg 3 times daily for 1 day and then prednisone 10 mg daily (6) Pneumonia involving right lung: History of pneumonia Doubt any acute pneumonia going on at this time CT of the chest showed bronchiectasis with possible infectious/inflammatory exudate Will add oral doxycycline for atypical coverage and continue ceftriaxone (7) HTN (hypertension): Continue current blood pressure medications (8) History of total hip replacement: Has hip pain and back pain Ortho consulted We will continue with PT/OT evaluation (9) S/P aortic valve replacement: No acute symptoms Ambulatory dysfunction Secondary to multiple comorbid conditions including 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, end-stage renal disease on hemodialysis, CAD status post aortic valve replacement DVT prophylaxis On Coumadin CODE STATUS Full Discussed with the daughter and the in detail Subjective 05/10 The patient was seen and examined in medical floor He was admitted with the nonspecific back pain, hip pain and abdominal discomfort and explained that happened about 2 hours after intravenous ceftriaxone Denies any shortness of breath, chest pain, fever and/or chills Generally weak and lethargic Review of Systems Review of Systems: All systems reviewed and are unremarkable except as noted below Constitutional: + body aches, + fatigue and + weakness Respiratory: no cough and no dyspnea Cardiovascular: no chest pain Gastrointestinal: + abdominal pain (And hypogastrium without any dysuria) Musculoskeletal: + back pain (Has chronic back pain with acute exacerbation) and + muscle weakness Physical Exam Physical Exam: Lying in bed with some distress -likely secondary to nonspecific pain Constitutional: + acute distress (Anxious with discomfort secondary to generalized pain) and + ill appearing Eyes: PERRL, conjunctivae normal, anicteric sclerae ENMT: external ear and nose normal, oropharynx normal Neck: trachea midline, no thyromegaly Respiratory: normal respiratory effort; no respiratory distress Cardiovascular: Rate/Rhythm: regular rate and regular rhythm Gastrointestinal (Abdomen): Inspection/Auscultation: abdomen normal to inspection Percussion/Palpation: abdomen soft Neurologic: moves all extremities No focal neuro deficit Results & Data Vital Signs (Past 12 Hours) Vital Signs Temp Pulse Pulse Pulse Pulse Pulse Resp 05/10/19 15:32 36.6 C 93 H 86 16 05/10/19 14:35 93 H 05/10/19 14:00 96 H 05/10/19 13:40 86 05/10/19 13:20 87 05/10/19 13:00 87 05/10/19 12:40 88 05/10/19 12:20 80 05/10/19 12:00 80 05/10/19 11:40 85 05/10/19 11:20 104 H 05/10/19 11:00 94 H 05/10/19 10:40 81 05/10/19 10:32 36.9 C 111 H 111 H 05/10/19 09:53 101 H 05/10/19 07:04 36.7 C 117 H 16 BP BP Pulse Ox 05/10/19 15:32 155/69 H 96 05/10/19 14:35 161/60 H 05/10/19 14:00 153/80 H 05/10/19 13:40 143/72 H 05/10/19 13:20 161/75 H 05/10/19 13:00 156/66 H 05/10/19 12:40 139/74 05/10/19 12:20 121/82 05/10/19 12:00 150/61 H 05/10/19 11:40 144/68 H 05/10/19 11:20 150/57 H 05/10/19 11:00 135/42 L 05/10/19 10:40 149/55 H 05/10/19 10:32 164/74 H 05/10/19 09:53 05/10/19 07:04 131/67 94 Laboratory Results Short CBC 05/09/19 05/10/19 Range/Units 19:46 05:35 WBC 11.22 H 13.78 H (4.8-10.8) K/uL Hgb 9.6 L 10.4 L (14.0-18.0) g/dL Hct 29.3 L 30.7 L (42-52) % Plt Count 212 239 (130-400) K/uL BMP 05/09/19 05/10/19 19:46 05:35 Sodium 133 L 132 L Potassium 4.3 4.3 Chloride 94 L 92 L Carbon Dioxide 27 28 BUN 45 H 47 H Creatinine 6.29 H* 6.89 H* D Glucose 165 H 166 H Calcium 8.6 8.3 L Cardiac Enzymes 05/09/19 Range/Units 19:46 Troponin I < 0.015 (0-0.045) ng/ml Liver Function 05/09/19 Range/Units 19:46 Total Bilirubin 0.3 (0.2-1) mg/dl AST 22 (15-37) U/L ALT 24 (12-78) U/L Alkaline Phosphatase 122 H (45-117) U/L Albumin 2.2 L (3.4-5.0) gm/dl Diagnostic Findings CT of the thoracic spine-mild chronic compression deformity of T12. Spondylotic change of the thoracic spine CT of the lumbar spine-extensive multilevel degenerative changes with significant osseous spinal canal narrowing at L3-4 and multilevel severe where she has neural foraminal narrowing CT of the chest without contrast: Notable findings-dependent airspace consolidation is again seen at the right lung base compared with 05/01/2019. There are numerous foci of tree-in-bud nodularity gutter throughout both lungs. The appearance suggest an infectious/inflammatory pneumonitis. Could be atypical and/or chronic. This is minimally improved compared with that of 05/01/2019 CT of the head-unremarkable CT of the abdomen and pelvis-cholelithiasis with gallbladder sludge/ Ultrasound of the gallbladder-biliary sludge, no gallstones and no evidence of acute cholecystitis Medications Administered Current Inpatient Medications Acetaminophen (Tylenol) 650 mg PO Q4H PRN PRN Reason: pain/fever Stop: 06/09/19 01:06 Last Admin: 05/10/19 08:07 Dose: 650 mg Documented by: Carvedilol (Coreg) 12.5 mg PO BID [facility] Stop: 06/09/19 08:59 Last Admin: 05/10/19 09:56 Dose: Not Given Documented by: Docusate Sodium (Colace) 100 mg PO BID PRN PRN Reason: Constipation Epoetin Royer (Procrit) 10,000 units IV TODAY@0945 [facility] Stop: 05/10/19 18:00 Last Admin: 05/10/19 12:06 Dose: 10,000 units Documented by: Fluticasone Propionate (Flonase) 1 sprays NA DAILY PRN PRN Reason: Nasal Congestion Stop: 06/09/19 01:06 Heparin Sodium (Beef Lung) (Heparin Sod 10 Unit/Ml Flush) 5 ml FLUSH PRN PRN PRN Reason: Flush Stop: 06/09/19 04:25 Ceftriaxone Sodium 2,000 mg/ (Dextrose) 70 mls @ 140 mls/hr IV DAILY@0900 [facility] Stop: 05/10/19 23:59 Last Admin: 05/10/19 16:37 Dose: 140 mls/hr Documented by: Ceftriaxone Sodium 2,000 mg/ (Dextrose) 70 mls @ 140 mls/hr IV DAILY@0600 [facility] Stop: 05/19/19 05:59 Hydrocortisone Sodium (Succinate 50 mg/ Syringe) 1 mls @ 4 mls/min IV Q8H [facility] Stop: 05/11/19 15:59 Last Admin: 05/10/19 16:37 Dose: 4 mls/min Documented by: Lidocaine/Prilocaine (Emla 2.5%) 1 ea EXT UD PRN PRN Reason: prior to each dialysis Stop: 06/09/19 01:06 Ondansetron HCl (Zofran) 4 mg IV Q6H PRN PRN Reason: Nausea Stop: 06/09/19 01:06 Last Admin: 05/10/19 04:38 Dose: 4 mg Documented by: Oxycodone HCl (Roxicodone Immediate Rel) 5 mg PO Q4H PRN PRN Reason: Pain Stop: 05/24/19 01:06 Pantoprazole Sodium (Protonix) 40 mg PO DAILY [facility] Stop: 06/09/19 08:59 Last Admin: 05/10/19 09:43 Dose: 40 mg Documented by: Polyethylene Glycol (Miralax Powder Packet) 17 gm PO DAILY PRN PRN Reason: Constipation Stop: 06/09/19 01:06 Ranitidine HCl (Zantac) 150 mg PO Q12H PRN PRN Reason: heartburn Stop: 06/09/19 01:06 Sevelamer HCl (Renagel) 800 mg PO TIDM [facility] Stop: 06/09/19 07:59 Last Admin: 05/10/19 16:06 Dose: 800 mg Documented by: Vitamin B Complex (Vitamin B Complex) 1 tab PO DAILY [facility] Stop: 06/09/19 08:59 Last Admin: 05/10/19 09:43 Dose: 1 tab Documented by: Vitamin D (Vitamin D3) 1,000 units PO DAILY [facility] Stop: 06/09/19 08:59 Last Admin: 05/10/19 09:43 Dose: 1,000 units Documented by: Warfarin Sodium (Coumadin) 2.5 mg PO DAILY@1600 [facility] Stop: 06/09/19 15:59 Last Admin: 05/10/19 16:36 Dose: 2.5 mg Documented by: (1) Back pain Back pain laterality: midline Back pain location: low back pain Chronicity: acute Sciatica presence: without sciatica Qualified Code(s): M54.5 - Low back pain (2) Abdominal pain Abdominal location: unspecified location Qualified Code(s): R10.9 - Unspecified abdominal pain (3) Pneumonia involving right lung Lung location: middle lobe of lung Pneumonia type: due to unspecified organism Qualified Code(s): J18.1 - Lobar pneumonia, unspecified organism
--- NOTE | 2019-05-10 17:40 | Nephrology Consultation ---
Date of Consultation May 10, 2019 Assessment & Plan (1) End-stage renal disease (ESRD): ESRD on HD TTS. Last hD was on . Patient was dialysed this afternoon for 4hrs with net UF of 3litres. He tolerated HD well. 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 he got ADILENE with HD today. (3) HTN (hypertension): BP is above target partly due to pain. Continue coreg. No need for additional meds at the moment. Control back and shoulder pain History of Present Illness Reason for Consultation: ESRD Requesting Physician: Blayne Aguilar MD Attending Physician: Gerard Lancaster MD History of Present Illness 84 y/o M whom I'm asked to see for dialysis care after he was admitted on 05/09/19 with back pain. PMH includes HD on TRSat HD, paroxysmal a flutter s/p ablation, s/p bioprosthetic AVR, nonocclusive CAD, chronic R HF, hx of PE on chronic warfarin, hx of carotid stenosis s/p R CEA, DM, obesity, HL, chronic anemia / thrombocytopenia. He dialyses at [facility] using AVF. Last HD was on which was uneventful. He was admitted recently a week ago with bacteremia and still getting ceftriaxone at home. He feels better today, denies SOB. His back pain is controlled with pain meds. He has leg swelling which is chronic for him. Allergies Allergy/AdvReac Type Severity Reaction Status Date / Time aspirin Allergy Unknown . Verified 05/09/19 21:01 salicylates Allergy Unknown UNKNOWN Verified 05/09/19 21:01 Home Medications Home Medications Medication Instructions Recorded Confirmed Type [place]-3 1 tab PO DAILY 06/14/18 05/09/19 History acetaminophen [Tylenol Extra 500 mg PO Q6H PRN 06/14/18 05/09/19 History Strength] carvedilol [Coreg] 12.5 mg PO BID 06/14/18 05/09/19 History cholecalciferol (vitamin D3) 1,000 unit PO DAILY 06/14/18 05/09/19 History [Vitamin D3] omeprazole 20 mg PO DAILY 06/14/18 05/09/19 History Sherley-Neeraj 1 tab PO DAILY 03/18/19 05/09/19 History docusate sodium 100 mg PO BID PRN 03/18/19 05/09/19 History fluticasone propionate [Flonase 1 spray INTRANASAL DAILY PRN 03/18/19 05/09/19 History Allergy Relief] lidocaine-prilocaine 1 applic TOPICAL UD 03/18/19 05/09/19 History sevelamer carbonate 800 mg PO TIDM 03/18/19 05/09/19 History vitamin B complex 1 tab PO DAILY 03/18/19 05/09/19 History warfarin [Coumadin] 2.5 mg PO DAILY 03/18/19 05/09/19 History ranitidine HCl 150 mg PO Q12H PRN #30 cap 03/19/19 05/09/19 Rx ceftriaxone 2 gm IV DAILY #14 ea 05/05/19 05/09/19 Rx Patient History Medical History GERD (gastroesophageal reflux disease) (Chronic) ESRD (end stage renal disease) on dialysis (Chronic) Dyslipidemia (Chronic) HTN (hypertension) (Chronic) Type 2 diabetes mellitus (Chronic) Pulmonary embolus (Chronic) Aortic valve insufficiency (Chronic) DVT (deep venous thrombosis) (Chronic) " 01/13/09 left leg " 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) "01/27/09, OD " Atrial flutter (Chronic) Anemia (Chronic) Surgical History S/P ablation of atrial flutter (Chronic) History of total hip replacement (Chronic) History of hydrocelectomy (Chronic) H/O superior vena cava filter placement (Chronic) H/O removal of testicle (Chronic) H/O carotid endarterectomy (Chronic) "2008" S/P aortic valve replacement (Chronic) "bio prosthetic" S/P cardiac cath (Chronic) "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" Family History Mother Hypertension Brother Stroke Social History Preferred Language: Kiswahili Communication Ability: Effective Labor Mediator Required: Yes Beliefs That Will Affect Care: None marital status: Current Living Situation: Spouse Current Living Situation Comment: lives with Vannesa and six dogs in three story home. Other Information That Helps Us Care for You: No Feels Safe at Home: Yes Safety Concerns: Feels Safe At This Time Smoking Status: Never smoker Second Hand Exposure: No ; Hx Alcohol Use: No Hx Substance Use: No Review of Systems Review of Systems: All systems reviewed & are unremarkable except as noted in HPI & below Physical Exam Physical Exam: General exam: Appears comfortable, no acute distress HEENT: Pupils are equal and reactive to light Neck: No JVD, neck is supple trachea is midline Respiratory system: Clear breath sounds bilaterally. Gastrointestinal: Abdomen is soft, non distended, non tender, bowel sounds are present CVS: Regular rate and rhythm. No murmurs, rubs or gallops Musculoskeletal: No joint or muscle tenderness Extremities: Non tender, 1+ edema, peripheral pulses are present Neuro: Oriented, no tremors, no focal neurological deficits Skin: No rashes Access: AVF with good bruit on Left UA Results & Data Vital Signs (Past 12 Hours) Vital Signs Temp Pulse Pulse Pulse Pulse Pulse Resp 05/10/19 15:32 36.6 C 93 H 86 16 05/10/19 14:35 93 H 05/10/19 14:00 96 H 05/10/19 13:40 86 05/10/19 13:20 87 05/10/19 13:00 87 05/10/19 12:40 88 05/10/19 12:20 80 05/10/19 12:00 80 05/10/19 11:40 85 05/10/19 11:20 104 H 05/10/19 11:00 94 H 05/10/19 10:40 81 05/10/19 10:32 36.9 C 111 H 111 H 05/10/19 09:53 101 H 05/10/19 07:04 36.7 C 117 H 16 BP BP Pulse Ox 05/10/19 15:32 155/69 H 96 05/10/19 14:35 161/60 H 05/10/19 14:00 153/80 H 05/10/19 13:40 143/72 H 05/10/19 13:20 161/75 H 05/10/19 13:00 156/66 H 05/10/19 12:40 139/74 05/10/19 12:20 121/82 05/10/19 12:00 150/61 H 05/10/19 11:40 144/68 H 05/10/19 11:20 150/57 H 05/10/19 11:00 135/42 L 05/10/19 10:40 149/55 H 05/10/19 10:32 164/74 H 05/10/19 09:53 05/10/19 07:04 131/67 94 Laboratory Results Laboratory Results - last 24 hr 05/09/19 05/09/19 05/09/19 19:46 19:46 19:46 WBC 11.22 H RBC 2.65 L Hgb 9.6 L Hct 29.3 L MCV 110.6 H MCH 36.2 H MCHC 32.8 RDW Std Deviation 63.8 H RDW Coeff of Elvia 16.0 H Plt Count 212 MPV 11.0 H Immature Gran % (Auto) 2.2 Neut % (Auto) 75.5 Lymph % (Auto) 9.3 [place] % (Auto) 11.1 Eos % (Auto) 1.4 Baso % (Auto) 0.5 Immature Gran # (Auto) 0.25 H Neut # (Auto) 8.47 H Lymph # (Auto) 1.04 L [place] # (Auto) 1.24 H Eos # (Auto) 0.16 Baso # (Auto) 0.06 Giant Platelets 1+ Macrocytosis Present PT 22.5 H INR 2.3 H APTT 48.3 H* PTT Ratio 1.8 Sodium 133 L Potassium 4.3 Chloride 94 L Carbon Dioxide 27 Anion Gap 12.0 H BUN 45 H Creatinine 6.29 H* Est Cr Clr Drug Dosing 9.7 Est GFR ( Amer) 8.6 Est GFR (Non-Af Amer) 7.4 BUN/Creatinine Ratio 7.1 L Glucose 165 H Estimat Average Glucose Hemoglobin A1c POC Lactic Acid Alvin Calcium 8.6 Magnesium Total Bilirubin 0.3 AST 22 ALT 24 Alkaline Phosphatase 122 H Troponin I < 0.015 Total Protein 8.0 Albumin 2.2 L Globulin 5.8 H Albumin/Globulin Ratio 0.4 L Lipase 313 Nasal Screen MRSA (PCR) 05/09/19 05/10/19 05/10/19 20:40 05:35 05:35 WBC 13.78 H RBC 2.77 L Hgb 10.4 L Hct 30.7 L MCV 110.8 H MCH 37.5 H MCHC 33.9 RDW Std Deviation 64.0 H RDW Coeff of Elvia 15.8 H Plt Count 239 MPV 10.6 H Immature Gran % (Auto) 2.2 Neut % (Auto) 76.6 Lymph % (Auto) 10.4 [place] % (Auto) 8.6 Eos % (Auto) 1.8 Baso % (Auto) 0.4 Immature Gran # (Auto) 0.31 H Neut # (Auto) 10.53 H Lymph # (Auto) 1.44 [place] # (Auto) 1.19 H Eos # (Auto) 0.25 Baso # (Auto) 0.06 Giant Platelets Macrocytosis Present PT INR APTT PTT Ratio Sodium 132 L Potassium 4.3 Chloride 92 L Carbon Dioxide 28 Anion Gap 12.0 H BUN 47 H Creatinine 6.89 H* D Est Cr Clr Drug Dosing 8.7 Est GFR ( Amer) 7.7 Est GFR (Non-Af Amer) 6.7 BUN/Creatinine Ratio 6.8 L Glucose 166 H Estimat Average Glucose Hemoglobin A1c POC Lactic Acid Alvin 1.40 Calcium 8.3 L Magnesium 2.3 Total Bilirubin AST ALT Alkaline Phosphatase Troponin I Total Protein Albumin Globulin Albumin/Globulin Ratio Lipase Nasal Screen MRSA (PCR) 05/10/19 05/10/19 05/10/19 05:35 05:35 05:55 WBC RBC Hgb Hct MCV MCH MCHC RDW Std Deviation RDW Coeff of Elvia Plt Count MPV Immature Gran % (Auto) Neut % (Auto) Lymph % (Auto) [place] % (Auto) Eos % (Auto) Baso % (Auto) Immature Gran # (Auto) Neut # (Auto) Lymph # (Auto) [place] # (Auto) Eos # (Auto) Baso # (Auto) Giant Platelets Macrocytosis PT 23.2 H INR 2.4 H APTT PTT Ratio Sodium Potassium Chloride Carbon Dioxide Anion Gap BUN Creatinine Est Cr Clr Drug Dosing Est GFR ( Amer) Est GFR (Non-Af Amer) BUN/Creatinine Ratio Glucose Estimat Average Glucose 163 Hemoglobin A1c 7.3 H POC Lactic Acid Alvin Calcium Magnesium Total Bilirubin AST ALT Alkaline Phosphatase Troponin I Total Protein Albumin Globulin Albumin/Globulin Ratio Lipase Nasal Screen MRSA (PCR) Negative
[2019-05-11] MEDS: SEVELAMER HCL 800 MG TABLET PO SCH ×4 (03:16→17:41)
[2019-05-11] MEDS: cefTRIAXone SODIUM 2,000 MG in DEXTROSE 5% 50 ML IV SCH (05:40)
[2019-05-11 06:19] LABS: Hematocrit (blood only) 31.6 % (42-52); Hemoglobin 10.2 g/dL (14.0-18.0); Mean Corpuscular Hgb Conc 32.3 g/dL (32-36); Mean Corpuscular Volume 112.1 fL (80-100); Mean Platelet Volume 11.1 fL (7.4-10.4); Platelet Count 234 K/uL (130-400); RDW Standard Deviation 65.2 fL (36.4-46.3); Red Blood Count 2.82 M/uL (4.7-6.1); White Blood Count 10.92 K/uL (4.8-10.8)
[2019-05-11 06:27] LABS: INR 2.3 (0.9-1.1); Prothrombin Time 22.2 Seconds (9.0-12.0)
[2019-05-11 06:41] LABS: Basophils # (auto) 0.03 K/uL (0-0.2); Basophils % (auto) 0.3 %; Immature Granulocytes # (auto) 0.59 K/uL (0.00-0.02); Immature Granulocytes % (auto) 5.4 %; Lymphocytes # (auto) 0.91 K/uL (1.2-3.4); Lymphocytes % (auto) 8.3 %; Macrocytosis Present; Monocytes # (auto) 0.95 K/uL (0.11-0.59); Monocytes % (auto) 8.7 %; Neutrophils # (auto) 8.44 K/uL (1.4-6.5); Neutrophils % (auto) 77.3 %; Rouleaux 1+
[2019-05-11 06:56] LABS: BUN Creatinine Ratio 6.7 (10-20); Calcium 8.6 mg/dl (8.5-10.1); Creatinine Clr Calc Pharmacy 11.9 ml/min; Est GFR (African American) 11.3; Est GFR (Non-African American) 9.8; Potassium 4.6 mmol/L (3.5-5.1)
[2019-05-11] MEDS: VITAMIN B COMPLEX TAB PO SCH (08:34)
[2019-05-11] MEDS: CARVEDILOL 12.5 MG TAB PO SCH ×2 (08:35→21:16)
[2019-05-11] MEDS: PANTOprazole 40 MG TAB PO SCH (08:35)
[2019-05-11] MEDS: CHOLECALCIFEROL 1,000 UNITS TAB PO SCH (08:35)
[2019-05-11] MEDS: HYDROCORTISONE SOD 50 MG in SYRINGE 0 ML IV SCH (08:55)
[2019-05-11] MEDS: predniSONE 10 MG TABLET PO SCH (11:59)
--- NOTE | 2019-05-11 14:39 | Hospitalist Progress Note ---
Date of Service May 11, 2019 Assessment & Plan (1) Back pain: Has history of chronic back pain and was admitted with increasing back pain with radiation to legs Associated with abdominal pain Doubt any association with intravenous ceftriaxone which he has been taking since his recent admission CT scan of the lumbar and thoracic spine noted multilevel disc disease with foraminal stenosis Appreciate Ortho input and recommendation Back pain and pain in the joints are improved We will get PT and OT evaluation (2) Abdominal pain: No nausea and/or vomiting Resolved (3) Gram positive sepsis: Recent diagnosis of gram-positive Has been on intravenous ceftriaxone 2 g daily We will continue for now to finish the course We will continue ceftriaxone 2 g/day to finish the course of 14 days in total (4) End-stage renal disease (ESRD): Complains to have been bloated feeling with leg swelling Appreciate nephrology input and will continue hemodialysis (5) PMR (polymyalgia rheumatica): Noted to have polymyalgia rheumatica as per last admission Has not been documented in epic Was getting 10 mg prednisone which was discontinued on discharge May have flareup of polymyalgia rheumatica Will try hydrocortisone 50 mg 3 times daily for 1 day and then prednisone 10 mg daily All of his symptoms improved with hydrocortisone Will start 10 mg prednisone regularly and will continue on discharge (6) Pneumonia involving right lung: History of pneumonia Doubt any acute pneumonia going on at this time CT of the chest showed bronchiectasis with possible infectious/inflammatory exudate Will add oral doxycycline for atypical coverage and continue ceftriaxone Will not start any antibiotic for CT findings for now (7) HTN (hypertension): Continue current blood pressure medications (8) History of total hip replacement: Has hip pain and back pain Ortho consulted We will continue with PT/OT evaluation (9) S/P aortic valve replacement: No acute symptoms Ambulatory dysfunction Secondary to multiple comorbid conditions including 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, end-stage renal disease on hemodialysis, CAD status post aortic valve replacement DVT prophylaxis On Coumadin CODE STATUS Full Discussed with the daughter and the in detail Likely discharge tomorrow Subjective 05/10 The patient was seen and examined in medical floor He was admitted with the nonspecific back pain, hip pain and abdominal discomfort and explained that happened about 2 hours after intravenous ceftriaxone Denies any shortness of breath, chest pain, fever and/or chills Generally weak and lethargic 05/11 Patient was seen and examined in medical floor He seems to be a completely new person today He denies any pain and has been participating physical therapy Likely be discharged tomorrow Review of Systems Review of Systems: All systems reviewed and are unremarkable except as noted below Constitutional: + weakness Gastrointestinal: + abdominal pain (And hypogastrium without any dysuria) Musculoskeletal: + back pain (Back to his baseline) and + muscle weakness (Much improved) Physical Exam Physical Exam: No apparent distress at rest Constitutional: well developed and well nourished Eyes: PERRL, conjunctivae normal, anicteric sclerae ENMT: external ear and nose normal, oropharynx normal Neck: trachea midline, no thyromegaly Respiratory: normal respiratory effort; no respiratory distress Cardiovascular: Rate/Rhythm: regular rate and regular rhythm Gastrointestinal (Abdomen): Inspection/Auscultation: abdomen normal to inspection Percussion/Palpation: abdomen soft Musculoskeletal: Denies any pain at rest Neurologic: moves all extremities Lymphatic: no cervical or axillary lymphadenopathy Results & Data Vital Signs (Past 12 Hours) Vital Signs Temp Pulse Resp BP Pulse Ox Pulse Ox 05/11/19 11:32 95 05/11/19 07:03 36.6 C 109 H 16 141/60 H 95 Laboratory Results Short CBC 05/11/19 Range/Units 06:03 WBC 10.92 H (4.8-10.8) K/uL Hgb 10.2 L (14.0-18.0) g/dL Hct 31.6 L (42-52) % Plt Count 234 (130-400) K/uL BMP 05/11/19 06:03 Sodium 133 L Potassium 4.6 Chloride 93 L Carbon Dioxide 27 BUN 33 H Creatinine 5.03 H* D Glucose 248 H Calcium 8.6 Medications Administered Current Inpatient Medications Acetaminophen (Tylenol) 650 mg PO Q4H PRN PRN Reason: pain/fever Stop: 06/09/19 01:06 Last Admin: 05/10/19 08:07 Dose: 650 mg Documented by: Carvedilol (Coreg) 12.5 mg PO BID [facility] Stop: 06/09/19 08:59 Last Admin: 05/11/19 08:35 Dose: 12.5 mg Documented by: Docusate Sodium (Colace) 100 mg PO BID PRN PRN Reason: Constipation Fluticasone Propionate (Flonase) 1 sprays NA DAILY PRN PRN Reason: Nasal Congestion Stop: 06/09/19 01:06 Ceftriaxone Sodium 2,000 mg/ (Dextrose) 70 mls @ 140 mls/hr IV DAILY@0600 [facility] Stop: 05/19/19 05:59 Last Infusion: 05/11/19 06:19 Dose: Infused Documented by: Hydrocortisone Sodium (Succinate 50 mg/ Syringe) 1 mls @ 4 mls/min IV Q8H [facility] Stop: 05/11/19 15:59 Last Admin: 05/11/19 08:55 Dose: 4 mls/min Documented by: Lidocaine/Prilocaine (Emla 2.5%) 1 ea EXT UD PRN PRN Reason: prior to each dialysis Stop: 06/09/19 01:06 Ondansetron HCl (Zofran) 4 mg IV Q6H PRN PRN Reason: Nausea Stop: 06/09/19 01:06 Last Admin: 05/10/19 04:38 Dose: 4 mg Documented by: Oxycodone HCl (Roxicodone Immediate Rel) 5 mg PO Q4H PRN PRN Reason: Pain Stop: 05/24/19 01:06 Pantoprazole Sodium (Protonix) 40 mg PO DAILY [facility] Stop: 06/09/19 08:59 Last Admin: 05/11/19 08:35 Dose: 40 mg Documented by: Polyethylene Glycol (Miralax Powder Packet) 17 gm PO DAILY PRN PRN Reason: Constipation Stop: 06/09/19 01:06 Prednisone (Prednisone) 10 mg PO DAILY [facility] Stop: 06/10/19 11:14 Last Admin: 05/11/19 11:59 Dose: 10 mg Documented by: Ranitidine HCl (Zantac) 150 mg PO Q12H PRN PRN Reason: heartburn Stop: 06/09/19 01:06 Last Admin: 05/11/19 08:34 Dose: 150 mg Documented by: Sevelamer HCl (Renagel) 800 mg PO TIDM [facility] Stop: 06/09/19 07:59 Last Admin: 05/11/19 11:59 Dose: 800 mg Documented by: Vitamin B Complex (Vitamin B Complex) 1 tab PO DAILY [facility] Stop: 06/09/19 08:59 Last Admin: 05/11/19 08:34 Dose: 1 tab Documented by: Vitamin D (Vitamin D3) 1,000 units PO DAILY [facility] Stop: 06/09/19 08:59 Last Admin: 05/11/19 08:35 Dose: 1,000 units Documented by: Warfarin Sodium (Coumadin) 2.5 mg PO DAILY@1600 [facility] Stop: 06/09/19 15:59 Last Admin: 05/10/19 16:36 Dose: 2.5 mg Documented by: (1) Back pain Back pain laterality: midline Back pain location: low back pain Chronicity: acute Sciatica presence: without sciatica Qualified Code(s): M54.5 - Low back pain (2) Abdominal pain Abdominal location: unspecified location Qualified Code(s): R10.9 - Unspecified abdominal pain (3) Pneumonia involving right lung Lung location: middle lobe of lung Pneumonia type: due to unspecified organism Qualified Code(s): J18.1 - Lobar pneumonia, unspecified organism
[2019-05-11] MEDS: WARFARIN SOD 2.5 MG TAB PO SCH (16:20)
--- NOTE | 2019-05-11 16:53 | Nephrology Progress Note ---
Date of Service May 11, 2019 Assessment & Plan (1) End-stage renal disease (ESRD): ESRD on HD TTS. Last hD was on . Patient was dialysed this yesterday for 4hrs with net UF of 3litres. He tolerated HD well. 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 Continue ADILENE with HD. (3) HTN (hypertension): BP is controlled on current regimen. No changes. Subjective Seen in f/u during rounds. Had HD yesterday. No SOB today. He gets fatigue post HD. Still edema but improving. No back pain today Review of Systems Review of Systems: All systems reviewed & are unremarkable except as noted in HPI & below Physical Exam Physical Exam: General exam: Appears comfortable, no acute distress HEENT: Pupils are equal and reactive to light Neck: No JVD, neck is supple trachea is midline Respiratory system: Clear breath sounds bilaterally. Gastrointestinal: Abdomen is soft, non distended, non tender, bowel sounds are present CVS: Regular rate and rhythm. No murmurs, rubs or gallops Musculoskeletal: No joint or muscle tenderness Extremities: Non tender, 1+ edema, peripheral pulses are present Neuro: Oriented, no tremors, no focal neurological deficits Skin: No rashes Access: AVF Results & Data Vital Signs (Past 12 Hours) Vital Signs Temp Pulse Resp BP Pulse Ox Pulse Ox 05/11/19 15:17 36.5 C 73 18 130/70 96 05/11/19 11:32 95 05/11/19 07:03 36.6 C 109 H 16 141/60 H 95 Laboratory Results Laboratory Results - last 24 hr 05/11/19 05/11/19 05/11/19 06:03 06:03 06:03 WBC 10.92 H RBC 2.82 L Hgb 10.2 L Hct 31.6 L MCV 112.1 H MCH 36.2 H MCHC 32.3 RDW Std Deviation 65.2 H RDW Coeff of Elvia 16.0 H Plt Count 234 MPV 11.1 H Immature Gran % (Auto) 5.4 Neut % (Auto) 77.3 Lymph % (Auto) 8.3 Guthrie % (Auto) 8.7 Eos % (Auto) 0.0 Baso % (Auto) 0.3 Immature Gran # (Auto) 0.59 H Neut # (Auto) 8.44 H Lymph # (Auto) 0.91 L Guthrie # (Auto) 0.95 H Eos # (Auto) 0.00 Baso # (Auto) 0.03 Macrocytosis Present Rouleaux 1+ PT 22.2 H INR 2.3 H Sodium 133 L Potassium 4.6 Chloride 93 L Carbon Dioxide 27 Anion Gap 13.0 H BUN 33 H Creatinine 5.03 H* D Est Cr Clr Drug Dosing 11.9 Est GFR ( Amer) 11.3 Est GFR (Non-Af Amer) 9.8 BUN/Creatinine Ratio 6.7 L Glucose 248 H Calcium 8.6
[2019-05-12] MEDS: cefTRIAXone SODIUM 2,000 MG in DEXTROSE 5% 50 ML IV SCH (05:07)
[2019-05-12 06:29] LABS: INR 2.2 (0.9-1.1); Prothrombin Time 21.6 Seconds (9.0-12.0)
[2019-05-12 08:06] VITALS: BP 136/52; TEMP 97.5; O2SAT 97
[2019-05-12] MEDS: PANTOprazole 40 MG TAB PO SCH (08:22)
[2019-05-12] MEDS: predniSONE 10 MG TABLET PO SCH (08:22)
[2019-05-12] MEDS: CHOLECALCIFEROL 1,000 UNITS TAB PO SCH (08:22)
[2019-05-12] MEDS: CARVEDILOL 12.5 MG TAB PO SCH (08:22)
[2019-05-12] MEDS: VITAMIN B COMPLEX TAB PO SCH (08:22)
[2019-05-12] MEDS: SEVELAMER HCL 800 MG TABLET PO SCH ×2 (08:22→12:33)
--- NOTE | 2019-05-12 12:38 | Hospitalist Progress Note ---
Date of Service May 12, 2019 Assessment & Plan (1) Back pain: Has history of chronic back pain and was admitted with increasing back pain with radiation to legs Associated with abdominal pain Doubt any association with intravenous ceftriaxone which he has been taking since his recent admission CT scan of the lumbar and thoracic spine noted multilevel disc disease with foraminal stenosis Appreciate Ortho input and recommendation Back pain and pain in the joints are improved We will get PT and OT evaluation Back pain is much improved and the patient is moving around the room without any significant problem He wants to go home and will be sent home today (2) Abdominal pain: No nausea and/or vomiting Resolved (3) Gram positive sepsis: Recent diagnosis of gram-positive Has been on intravenous ceftriaxone 2 g daily We will continue for now to finish the course We will continue ceftriaxone 2 g/day to finish the course of 14 days in total We will continue the antibiotic as planned (4) End-stage renal disease (ESRD): Complains to have been bloated feeling with leg swelling Appreciate nephrology input and will continue hemodialysis Dialysis tomorrow as an outpatient (5) PMR (polymyalgia rheumatica): Noted to have polymyalgia rheumatica as per last admission Has not been documented in epic Was getting 10 mg prednisone which was discontinued on discharge May have flareup of polymyalgia rheumatica Will try hydrocortisone 50 mg 3 times daily for 1 day and then prednisone 10 mg daily All of his symptoms improved with hydrocortisone Will start 10 mg prednisone regularly and will continue on discharge Myalgia and arthralgia/arthritis are improved (6) Pneumonia involving right lung: History of pneumonia Doubt any acute pneumonia going on at this time CT of the chest showed bronchiectasis with possible infectious/inflammatory exudate Will add oral doxycycline for atypical coverage and continue ceftriaxone Will not start any antibiotic for CT findings for now No acute respiratory symptoms (7) HTN (hypertension): Continue current blood pressure medications (8) History of total hip replacement: Has hip pain and back pain Ortho consulted We will continue with PT/OT evaluation (9) S/P aortic valve replacement: No acute symptoms Ambulatory dysfunction Secondary to multiple comorbid conditions including 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, end-stage renal disease on hemodialysis, CAD status post aortic valve replacement DVT prophylaxis On Coumadin CODE STATUS Full Discussed with the daughter and the in detail Likely discharge tomorrow Subjective 05/10 The patient was seen and examined in medical floor He was admitted with the nonspecific back pain, hip pain and abdominal discomfort and explained that happened about 2 hours after intravenous ceftriaxone Denies any shortness of breath, chest pain, fever and/or chills Generally weak and lethargic 05/11 Patient was seen and examined in medical floor He seems to be a completely new person today He denies any pain and has been participating physical therapy Likely be discharged tomorrow 05/12 Patient was seen and examined in medical floor He has been doing a lot better since yesterday He has been ambulating in the room without any difficulty Denies any fever and/or chills and the pain is controlled Wants to go home today Review of Systems Review of Systems: All systems reviewed and are unremarkable except as noted below Musculoskeletal: + back pain (Back to his baseline. No pain at rest) and + muscle weakness (Improved) Physical Exam Physical Exam: No apparent distress at rest. Sitting on a chair comfortably Constitutional: well developed and well nourished Eyes: PERRL, conjunctivae normal, anicteric sclerae ENMT: external ear and nose normal, oropharynx normal Neck: trachea midline, no thyromegaly Respiratory: normal respiratory effort; no respiratory distress Cardiovascular: Rate/Rhythm: regular rate and regular rhythm Gastrointestinal (Abdomen): Inspection/Auscultation: abdomen normal to inspection Percussion/Palpation: abdomen soft Musculoskeletal: Back pain is stable and nothing acute Neurologic: moves all extremities Lymphatic: no cervical or axillary lymphadenopathy Results & Data Vital Signs (Past 12 Hours) Vital Signs Temp Pulse Resp BP Pulse Ox 05/12/19 08:00 36.4 C L 67 16 136/52 L 97 Medications Administered Current Inpatient Medications Acetaminophen (Tylenol) 650 mg PO Q4H PRN PRN Reason: pain/fever Stop: 06/09/19 01:06 Last Admin: 05/10/19 08:07 Dose: 650 mg Documented by: Carvedilol (Coreg) 12.5 mg PO BID JAMES Stop: 06/09/19 08:59 Last Admin: 05/12/19 08:22 Dose: 12.5 mg Documented by: Docusate Sodium (Colace) 100 mg PO BID PRN PRN Reason: Constipation Fluticasone Propionate (Flonase) 1 sprays NA DAILY PRN PRN Reason: Nasal Congestion Stop: 06/09/19 01:06 Ceftriaxone Sodium 2,000 mg/ (Dextrose) 70 mls @ 140 mls/hr IV DAILY@0600 JAMES Stop: 05/19/19 05:59 Last Infusion: 05/12/19 05:37 Dose: Infused Documented by: Lidocaine/Prilocaine (Emla 2.5%) 1 ea EXT UD PRN PRN Reason: prior to each dialysis Stop: 06/09/19 01:06 Ondansetron HCl (Zofran) 4 mg IV Q6H PRN PRN Reason: Nausea Stop: 06/09/19 01:06 Last Admin: 05/10/19 04:38 Dose: 4 mg Documented by: Oxycodone HCl (Roxicodone Immediate Rel) 5 mg PO Q4H PRN PRN Reason: Pain Stop: 05/24/19 01:06 Pantoprazole Sodium (Protonix) 40 mg PO DAILY [facility] Stop: 06/09/19 08:59 Last Admin: 05/12/19 08:22 Dose: 40 mg Documented by: Polyethylene Glycol (Miralax Powder Packet) 17 gm PO DAILY PRN PRN Reason: Constipation Stop: 06/09/19 01:06 Prednisone (Prednisone) 10 mg PO DAILY JAMES Stop: 06/10/19 11:14 Last Admin: 05/12/19 08:22 Dose: 10 mg Documented by: Ranitidine HCl (Zantac) 150 mg PO Q12H PRN PRN Reason: heartburn Stop: 06/09/19 01:06 Last Admin: 05/11/19 08:34 Dose: 150 mg Documented by: Sevelamer HCl (Renagel) 800 mg PO TIDM JAMES Stop: 06/09/19 07:59 Last Admin: 05/12/19 12:33 Dose: 800 mg Documented by: Vitamin B Complex (Vitamin B Complex) 1 tab PO DAILY JAMES Stop: 06/09/19 08:59 Last Admin: 05/12/19 08:22 Dose: 1 tab Documented by: Vitamin D (Vitamin D3) 1,000 units PO DAILY JAMES Stop: 06/09/19 08:59 Last Admin: 05/12/19 08:22 Dose: 1,000 units Documented by: Warfarin Sodium (Coumadin) 2.5 mg PO DAILY@1600 [facility] Stop: 06/09/19 15:59 Last Admin: 05/11/19 16:20 Dose: 2.5 mg Documented by: (1) Back pain Back pain laterality: midline Back pain location: low back pain Chronicity: acute Sciatica presence: without sciatica Qualified Code(s): M54.5 - Low back pain (2) Abdominal pain Abdominal location: unspecified location Qualified Code(s): R10.9 - Unspecified abdominal pain (3) Pneumonia involving right lung Lung location: middle lobe of lung Pneumonia type: due to unspecified organism Qualified Code(s): J18.1 - Lobar pneumonia, unspecified organism
[2019-05-12 13:13] VITALS: PULSE 70
--- NOTE | 2019-05-21 08:30 | Discharge Summary ---
Date of Service May Admission HPI Per Admitting Provider DICTATED BY: Jeff Cisneros MD DATE OF ADMISSION: 05/09/2019 CHIEF COMPLAINT: Back pain, hip pain and abdominal discomfort. HISTORY OF PRESENT ILLNESS: This is an 84-year-old male with past medical history significant for chronic right-sided heart failure as per records ejection fraction of 62% to 65%, nonobstructive coronary artery disease, atrial flutter, status post ablation, history of aortic valve replacement, carotid artery disease, status post surgery, hypertension, history of pulmonary embolism,DVT on anticoagulation, type 2 diabetes, diet controlled, chronic anemia, baseline hemoglobin 10-11, chronic thrombocytopenia who recently had a treatment for pneumonia and also was admitted to hospital and found to have bacteremia with MSSA and discharged home on Rocephin 2 g b.i.d. for 14 days and was discharged on 05/07/2019. The patient lives with his , says after he got his antibiotic today since one hour later he eas not feeling well , having back pain, right flank pain, abdominal discomfort, feeling weak and tired and his appetite has also been down. His ambulatory status is poor. He is dragging his right leg while ambulating. Generally, he does not ambulate much at home and lower extremity legs get swelling up and down and today they are a little more swollen. Currently, he has pain in the right heel. So, the family brought him here. His imaging studies are unremarkable except showing some extensive nodules in the lungs. The patient states he has cough. Denies any fever or chills. Denies any chest pain. Has shortness of breath. No headache. No difficulty swallowing. No nausea. No vomiting. He has some blood in the stools. He thinks it is from the bleeding hemorrhoids. Currently, he is resting comfortably and hemodynamically stable. Because of ongoing weakness, flank pain, back pain and questionable reaction to his antibiotic, we are going to admit the patient in the hospital. Admission Exam Per Admitting Provider GENERAL: The patient is alert and awake, not in acute distress. VITAL SIGNS: Temperature 36.7, pulse 82, respiratory rate 20, blood pressure 138/60 and oxygen 93% on room air. HEENT: No pallor. No icterus. Pupils are equal, round and reactive to light. NECK: No JVD. No neck masses. No carotid bruits. CARDIOVASCULAR: S1, S2 heard. Regular rate and rhythm. No murmur. No gallop. RESPIRATORY SYSTEM: Normal AP diameter. No accessory muscle use. No wheezing. No crackles. ABDOMEN: Soft. Bowel sounds present. Mild abdominal discomfort. No guarding. No rigidity. No distention. CENTRAL NERVOUS SYSTEM: Cranial nerves II through XII are grossly nonfocal. EXTREMITIES: Bilateral lower extremity gross edema present. No erythema seen. Somewhat warm on palpation. Principal Diagnosis Polyarthralgia/polyarthritis, polymyalgia rheumatica, end-stage renal disease on hemodialysis Discharge Exam Constitutional well developed and well nourished Eyes PERRL, conjunctivae normal, anicteric sclerae ENMT external ear and nose normal, oropharynx normal Neck trachea midline, no thyromegaly Respiratory normal respiratory effort; no respiratory distress Cardiovascular Rate/Rhythm: regular rate and regular rhythm Gastrointestinal (Abdomen) Inspection/Auscultation: abdomen normal to inspection Percussion/Palpation: abdomen soft Neurologic moves all extremities Lymphatic no cervical or axillary lymphadenopathy Discharge Data Allergies Allergy/AdvReac Type Severity Reaction Status Date / Time aspirin Allergy Unknown . Verified 05/09/19 21:01 salicylates Allergy Unknown UNKNOWN Verified 05/09/19 21:01 Consultations 05/09/19 22:12 ED Decision to Admit Stat 05/10/19 01:07 Consult Case Management - Discharge Planning Routine 05/10/19 06:32 Consult Orthopedic Surgery Routine 05/10/19 08:00 Consult Nephrology Routine Ordered Studies 05/09/19 20:54 CT abd pelvis wo con Stat CT head/brain wo con Stat CT lumbar spine wo con Stat 05/10/19 05:48 CT chest wo con Urgent 05/10/19 06:32 US gallbladder Urgent 05/10/19 08:50 CT thoracic spine wo con Routine Hospital Course (1) Back pain: Has history of chronic back pain and was admitted with increasing back pain with radiation to legs Associated with abdominal pain Doubt any association with intravenous ceftriaxone which he has been taking since his recent admission CT scan of the lumbar and thoracic spine noted multilevel disc disease with foraminal stenosis Appreciate Ortho input and recommendation Back pain and pain in the joints are improved We will get PT and OT evaluation Back pain is much improved and the patient is moving around the room without any significant problem He wants to go home and will be sent home today (2) Abdominal pain: No nausea and/or vomiting Resolved (3) Gram positive sepsis: Recent diagnosis of gram-positive Has been on intravenous ceftriaxone 2 g daily We will continue for now to finish the course We will continue ceftriaxone 2 g/day to finish the course of 14 days in total We will continue the antibiotic as planned (4) End-stage renal disease (ESRD): Complains to have been bloated feeling with leg swelling Appreciate nephrology input and will continue hemodialysis Dialysis tomorrow as an outpatient (5) PMR (polymyalgia rheumatica): Noted to have polymyalgia rheumatica as per last admission Has not been documented in epic Was getting 10 mg prednisone which was discontinued on discharge May have flareup of polymyalgia rheumatica Will try hydrocortisone 50 mg 3 times daily for 1 day and then prednisone 10 mg daily All of his symptoms improved with hydrocortisone Will start 10 mg prednisone regularly and will continue on discharge Myalgia and arthralgia/arthritis are improved (6) Pneumonia involving right lung: History of pneumonia Doubt any acute pneumonia going on at this time CT of the chest showed bronchiectasis with possible infectious/inflammatory exudate Will add oral doxycycline for atypical coverage and continue ceftriaxone Will not start any antibiotic for CT findings for now No acute respiratory symptoms (7) HTN (hypertension): Continue current blood pressure medications (8) History of total hip replacement: Has hip pain and back pain Ortho consulted We will continue with PT/OT evaluation (9) S/P aortic valve replacement: No acute symptoms Ambulatory dysfunction Secondary to multiple comorbid conditions including 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, end-stage renal disease on hemodialysis, CAD status post aortic valve replacement DVT prophylaxis On Coumadin CODE STATUS Full Discussed with the daughter and the in detail Likely discharge tomorrow Total Time Total Time Spent Total Time Spent (In Minutes): 35 minutes Total Time Includes: Examination of the Patient, Discharge Planning, Medication Reconciliation and Communication With Other Providers Discharge Plan Discharge Items Patient Disposition: Home - Home Health Services Reason For Visit: HIP PAIN, BACK PAIN, ABDOMINAL DISCOMFORT Discharge Diagnosis: Polyarthralgia/polyarthritis, polymyalgia rheumatica, end- stage renal disease on hemodialysis Condition: Good Discharge Goals: Decrease discomfort, Improve function and Increase independence Activity: Resume your previous activity Non-emergency contact: Primary Care Provider Call non-emergency contact if: you have any medication questions and your symptoms worsen Follow-up/Referrals: Zach Gooden MD [Primary Care Provider] - 05/14/19 12:45 pm (Coagulation clinic notified) Diet: Carb Consistent or DM2, Dialysis Renal and Low Sodium (2gm) Fluids: 1500ml (6 cups) Addtl Provider Instructions: Continue IV antibiotic and finish the course as planned Continue prednisone 10 mg daily Prescriptions: New prednisone 10 mg Tablet 10 mg PO DAILY 30 Days Qty: 30 RF: 0 Continued carvedilol [Coreg] 12.5 mg tablet 12.5 mg PO BID RF: 0 acetaminophen [Tylenol Extra Strength] 500 mg Tablet 500 mg PO Q6H PRN (Reason: Pain) RF: 0 omeprazole 20 mg capsule,delayed release(DR/EC) 20 mg PO DAILY RF: 0 cholecalciferol (vitamin D3) [Vitamin D3] 1,000 unit Capsule 1,000 unit PO DAILY RF: 0 [place]-3 350 mg-235 mg- 90 mg-597 mg Capsule,Delayed Release(Dr/Ec) 1 tab PO DAILY RF: 0 warfarin [Coumadin] 5 mg tablet 2.5 mg PO DAILY RF: 0 Sherley-Neeraj 0.8 mg tablet 1 tab PO DAILY RF: 0 fluticasone propionate [Flonase Allergy Relief] 50 mcg/actuation [place],Suspension 1 spray INTRANASAL DAILY PRN (Reason: Nasal Congestion) RF: 0 docusate sodium 100 mg Tablet 100 mg PO BID PRN (Reason: Constipation) RF: 0 lidocaine-prilocaine 2.5-2.5 % cream 1 applic topical UD RF: 0 vitamin B complex Tablet 1 tab PO DAILY RF: 0 sevelamer carbonate 800 mg tablet 800 mg PO TIDM RF: 0 ranitidine HCl 150 mg capsule 150 mg PO Q12H PRN (Reason: heartburn) Qty: 30 RF: 0 ceftriaxone 2 gram recon soln 2 gm IV DAILY Qty: 14 RF: 0 Stand-Alone Forms: [facility] Discharge Orders: Discharge Order (Routine); Ordered 05/12/19 Ordered By: Gerard Lancaster Admission Data Admit Date/Time: 05/09/19 23:40 Attending Provider: Gerard Lancaster Admit Provider: Jeff Cisneros Primary Care Provider: Zach Gooden Other Providers: Bhavana Cason Gregory M Service: Medical Other Interventions: Discharge Summary Assessment (RN) Last Done: 05/12/19 13:10 DC Date/Time DO NOT enter until pt leaves facility: 05/12/19 13:59
== END 2019-05-12 13:59 | disposition home health service (06) ==
LOC: ED 19:18 → 3N 19:18
DX: Z96.649 Presence of unspecified artificial hip joint; A41.89 Other specified sepsis; M54.5 Low back pain; E66.9 Obesity, unspecified; M35.3 Polymyalgia rheumatica; Z68.30 Body mass index [BMI] 30.0-30.9, adult; N18.6 End stage renal disease; R26.9 Unspecified abnormalities of gait and mobility; Z95.2 Presence of prosthetic heart valve; I25.10 Atherosclerotic heart disease of native coronary artery without angina pectoris; Z86.718 Personal history of other venous thrombosis and embolism; F40.240 Claustrophobia; I50.9 Heart failure, unspecified; Z86.711 Personal history of pulmonary embolism; R10.9 Unspecified abdominal pain; D63.1 Anemia in chronic kidney disease; Z79.01 Long term (current) use of anticoagulants; Z88.8 Allergy status to other drugs, medicaments and biological substances; G89.29 Other chronic pain; I13.2 Hypertensive heart and chronic kidney disease with heart failure and with stage 5 chronic kidney disease, or end stage renal disease; Z99.2 Dependence on renal dialysis; E11.22 Type 2 diabetes mellitus with diabetic chronic kidney disease; M48.061 Spinal stenosis, lumbar region without neurogenic claudication

== ENCOUNTER 2019-05-21 10:10 | Inpatient (IN) ==
--- NOTE | 2019-05-21 11:04 | XRay Report ---
SINGLE VIEW CHEST CLINICAL HISTORY: Atypical chest pain. FINDINGS: An AP, portable, upright chest radiograph is compared to study dated 05/09/2019 and correlate d with chest CT dated 05/10/2019. The examination is degraded by portable technique and patient rotati on. The patient is status post midline sternotomy. The heart is enlarged and there is atherosclerot ic calcification of the thoracic aorta. The pulmonary vasculature is noncongested. Chronic interstiti al thickening is similar to previous. There are dependent bibasilar airspace opacities. No large pleu ral effusion or pneumonia thorax is seen. The skeletal structures are osteopenic. The bony thorax is grossly intact. IMPRESSION: 1. Cardiomegaly without radiographic evidence of congestive failure. 2. There are dependent bibasilar airspace opacities, likely representing scarring/atelectasis. Correl ate clinically for evidence of a mild superimposed infectious/inflammatory pneumonitis. Electronically signed by: Guilherme Cummings M.D. 05/21/2019 11:02 AM
[2019-05-21 12:14] LABS: Alanine Aminotransferase 22 U/L (12-78); Albumin Globulin Ratio 0.4 (0.9-2); Albumin Level 2.2 gm/dl (3.4-5.0); Alkaline Phosphatase 122 U/L (45-117); Aspartate Aminotransferase 13 U/L (15-37); BUN Creatinine Ratio 8.8 (10-20); Bilirubin,Total 0.3 mg/dl (0.2-1); Blood Urea Nitrogen 88 mg/dl (7-18); Calcium 7.6 mg/dl (8.5-10.1); Carbon Dioxide 23 mmol/L (21-32); Chloride 95 mmol/L (98-107); Est GFR (African American) 4.9; Est GFR (Non-African American) 4.3; Globulin 5.8 gm/dl (2.5-4.0); Glucose 214 mg/dl (70-99); Magnesium 2.2 mg/dl (1.8-2.4); Phosphorus 7.1 mg/dl (2.5-4.9); Potassium 6.1 mmol/L (3.5-5.1); Sodium 134 mmol/L (136-145); Troponin I < 0.015 ng/ml (0-0.045)
[2019-05-21] MEDS ORDERED: INSULIN HUMAN REGULAR PER UNIT 10 UNITS in SYRINGE 9.9 ML IV STA (12:22)
[2019-05-21] MEDS ORDERED: CALCIUM GLUCONATE 10% 2,000 MG in SODIUM CHLORIDE 0.9% 50 ML IV STA (12:22)
[2019-05-21] MEDS ORDERED: DEXTROSE 50% 50 ML SYRINGE IV STA (12:22)
--- NOTE | 2019-05-21 13:58 | History & Physical Report ---
Date of Service May 21, 2019 Assessment & Plan (1) Weakness: (2) Ambulatory dysfunction: (3) End-stage renal disease (ESRD): (4) Missed dialysis: This is a 84-year-old male who has a significant past medical history of ESRD on HD T//, T2DM, chronic right-sided CHF, HTN, HLD, nonobstructive CAD, history of bioprosthetic AVR, silica pneumoconiosis, chronic thrombocytopenia, paroxysmal atrial flutter, history of PE on chronic warfarin therapy, history of carotid artery stenosis status post right CEA who presents to [facility] ED secondary to weakness and missed HD x 1 day. In ED K noted to be 6.1, Bun 88, Cr 10.0 No ecg changes noted received tx for hyperkalemia in ED He is hemodynamically stable, markedly hypertensive WBC 20k, H/H 9.4 and 27.6, plt 165 Pt with increasing weakness of b/l lower ext R > L: etiology unknown ? infectious, vs secondary to deconditioning from recent/freq hospitalizations, vs steroid myopathy, vs uremia, vs neurologic process, vs profound edema admit to Tele consult nephrology for HD repeat blood cultures, ensure clearance of bacteremia check Urinalysis complete Rocephin 2g daily on 05/22 repeat CXR in a.m. Prior hospitalization pt dx with PMR and started on prednisone 20mg daily, titrated down to 10mg daily at last discharge. Will decrease to 5mg daily and recommend titrate off prednisone when able ? if attributing to worsening edema, weakness leukocytosis may be in setting of prednisone use vs active infection, follow repeat cbc, bmp, mag, phos in a.m. PT/OT in a.m check stool for culture, cdiff given reported diarrhea in setting of recent antibiotic use (5) Hyperkalemia: k 6.1 received calcium gluconate 2,000mg and Regular Insulin 10units repeat K at 4pm along with ecg will need HD (6) Gram-positive cocci in clusters: recent gram + MSSA bacteremia, no evident source identified to complete 2g rocephin dialy on 05/22 repeat blood cultures to ensure negative (7) 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: cbc pending baseline hgb ~10 (8) Atrial flutter: hx of ablation now in chronic afib on metoprolol for rate control coumadin for anticoag (9) Type 2 diabetes mellitus: A1C 7.3 on 05/10 not on any oral agents approp control given age and comorbidities hyperglycemic in ED likely in setting of recent prednisone use Novolog insulin per protocol (10) HTN (hypertension): pt hypertensive in ED likely in setting of missed HD continue metoprolol, tx SBP >180 or DBP >100 (11) Thrombocytopenia: hx of chronic low plt cts have recently improved cbc pending (12) 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 Craig upon discharge Patient was seen and examined in collaboration with Dr. Barnes, please see addendum History of Present Illness Chief Complaint: weakness and missed HD x 1 day. Primary Care Provider: Zach Gooden MD This is a 84-year-old male who has a significant past medical history of ESRD on HD /, T2DM, chronic right-sided CHF, HTN, HLD, nonobstructive CAD, history of bioprosthetic AVR, silica pneumoconiosis, chronic thrombocytopenia, paroxysmal atrial flutter, history of PE on chronic warfarin therapy, history of carotid artery stenosis status post right CEA who presents to [facility] ED secondary to weakness and missed HD x 1 day. Of significance patient with multiple recent hospital admissions 03/18- 2/2 chest pain, felt likely to be GI etiology. Echocardiogram performed at that time revealed bioprosthetic aortic valve, moderate concentric left ventricular hypertrophy, EF 60 to 65%, grade 1 diastolic dysfunction, elevated right ventricular systolic function 40 to 50 mmHg. 04/17-04/20 2/2 Sepsis, HAP 05/01-05/07 2/2 Acute hypoxic resp failure due to pulm congestion due to missed HD and Left chest pain. [place] MSK in origin. Concern for possibly polymyalgia rheumatic. Started on prednisone 20mg daily b/c of this. Further w/u revealed Gram + bacteremia MSSA, unknown source, echo w/o vegetation. Repeat blood culture negative. Seen by ID. Placed on Rocephin 2g daily until 05/22/19/-05/13 2/2 L sided chest pain, Back Pain, abd pain and diarrhea. Chest pain felt to be atypical, like MSK etiology. Trop negative x 3 w/o ecg change. He presents today with weakness, inability to ambulate, increased lower extremity swelling x 1 day. Pt was to have HD yesterday but was too weak; therefore cancelled. Was again to go today, but felt too weak so opted to seek ED for further evaluation. He denies any fevers but admits to feeling chills. Denies dizziness, lightheaded, chest pain, sob, cough, hemoptysis, n/v/abd pain. Denies change in diet or increase in fluid intake. He has been having intermittent diarrhea, which family feels is associated with initiation of IV antibiotics, last BM was this morning. Has chronic low back pain which he has dealt with for years. States his RLE has always been weaker due to prior orthopedic surgery but feels more pronounced. Lives at home with but has been having increased difficulty with ambulation. Overall decreased appetite. Allergies Allergy/AdvReac Type Severity Reaction Status Date / Time aspirin Allergy Unknown . Verified 05/21/19 10:48 salicylates Allergy Unknown UNKNOWN Verified 05/21/19 10:48 Home Medications Home Medications Medication Instructions Recorded Confirmed Type acetaminophen [Tylenol Extra 500 mg PO Q6H PRN 06/14/18 05/21/19 History Strength] cholecalciferol (vitamin D3) 1,000 unit PO DAILY 06/14/18 05/21/19 History [Vitamin D3] omeprazole 20 mg PO DAILY 06/14/18 05/21/19 History Sherley-Neeraj 1 tab PO DAILY 03/18/19 05/21/19 History docusate sodium 100 mg PO BID PRN 03/18/19 05/21/19 History fluticasone propionate [Flonase 1 spray INTRANASAL DAILY PRN 03/18/19 05/21/19 History Allergy Relief] sevelamer carbonate 800 mg PO TIDM 03/18/19 05/21/19 History vitamin B complex 1 tab PO DAILY 03/18/19 05/21/19 History warfarin [Coumadin] 2.5 mg PO DAILY 03/18/19 05/21/19 History prednisone 10 mg PO DAILY 30 Days #30 tab 05/12/19 05/21/19 Rx ceftriaxone 2 g IV DAILY 05/21/19 05/21/19 History metoprolol succinate 50 mg PO DAILY 05/21/19 05/21/19 History omega 3-[id number]-[id number]-fish oil [Fish Oil] 1 cap PO DAILY 05/21/19 05/21/19 History Past Med/Surg History Medical History GERD (gastroesophageal reflux disease) (Chronic) ESRD (end stage renal disease) on dialysis (Chronic) Dyslipidemia (Chronic) HTN (hypertension) (Chronic) Type 2 diabetes mellitus (Chronic) Pulmonary embolus (Chronic) Aortic valve insufficiency (Chronic) DVT (deep venous thrombosis) (Chronic) " 01/13/09 left leg " 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) "01/27/09, OD " Atrial flutter (Chronic) Anemia (Chronic) Surgical History S/P ablation of atrial flutter (Chronic) History of total hip replacement (Chronic) History of hydrocelectomy (Chronic) H/O superior vena cava filter placement (Chronic) H/O removal of testicle (Chronic) H/O carotid endarterectomy (Chronic) "2008" S/P aortic valve replacement (Chronic) "bio prosthetic" S/P cardiac cath (Chronic) "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" Family History Mother Hypertension Brother Stroke Social History Preferred Language: Hebrew Communication Ability: Effective Visual Impairment: Partially Limited Bank Reconciliator Required: Yes Beliefs That Will Affect Care: None marital status: Current Living Situation: Spouse Current Living Situation Comment: lives with Vannesa and six dogs in three story home. Feels Safe at Home: Yes Smoking Status: Never smoker Second Hand Exposure: No ; Hx Alcohol Use: No Hx Substance Use: No Review of Systems Review of Systems: As noted per HPI, 10 systems reviewed and negative unless noted above. Physical Exam Physical Exam: Constitutional: Elderly, chronically ill appearing, M, WD/WN, vitals as above, NAD, sitting up in bed, pleasant, conversing easily Head: Normocephalic, Atraumatic Eyes: PERRL, conjunctivae normal, anicteric sclerae ENMT: external ear and nose normal, oropharynx normal Neck: trachea midline, no thyromegaly normal visual inspection Respiratory: normal respiratory effort, lungs clear to auscultation, no wheeze, rales, rhonchi. Normal insp/exp effort, no accessory muscle use Cardiovascular: IRR/IRR, no murmur, +AVR auscultated, +3 b/l lower ext edema with venous stasis changes. No JVD or carotid bruit Chest: normal inspection of chest Abdomen: obese but soft abd, normal bowel sounds, soft, nontender, no hepatosplenomegaly Musculoskeletal: no cyanosis or clubbing, extremities motor strength 5/5 UPPER ext, RLE 3/5, LLE 5/5 Skin: no rashes, warm and dry normal turgor Neurologic: PERRL, EOMI, accommodation nl, no face palsy, no dysarthria CN's II-XI intact bilaterally and moves all extremities Psychiatric: A+Ox3, euthymic affect Lymphatic: no cervical or axillary lymphadenopathy : deferred Results & Data Vital Signs (Past 12 Hours) Vital Signs Temp Pulse Resp BP Pulse Ox 05/21/19 10:44 95 05/21/19 10:22 36.8 C 77 20 175/71 H 96 Laboratory Results Short CBC 05/21/19 Range/Units 11:14 WBC Cancelled Hgb Cancelled Hct Cancelled Plt Count Cancelled BMP 05/21/19 11:14 Sodium 134 L Potassium 6.1 H* Chloride 95 L Carbon Dioxide 23 BUN 88 H Creatinine 10.00 H* Glucose 214 H Calcium 7.6 L Cardiac Enzymes 05/21/19 Range/Units 11:14 Troponin I < 0.015 (0-0.045) ng/ml Liver Function 05/21/19 Range/Units 11:14 Total Bilirubin 0.3 (0.2-1) mg/dl AST 13 L (15-37) U/L ALT 22 (12-78) U/L Alkaline Phosphatase 122 H (45-117) U/L Albumin 2.2 L (3.4-5.0) gm/dl Diagnostic Findings CXR: IMPRESSION: 1. Cardiomegaly without radiographic evidence of congestive failure. 2. There are dependent bibasilar airspace opacities, likely representing scarring/atelectasis. Correlate clinically for evidence of a mild superimposed infectious/inflammatory pneumonitis. ECG Rate (beats per minute): 78 Rhythm: atrial flutter Code Status & VTE Plan Code Status Full Code VTE Prophylaxis Plan VTE Prophylaxis will be ordered: Yes Supervising Physician Co-Signing Physician Notes Patient is an 84-year-old male with history of end-stage renal disease on hemodialysis, chronic CHF, history of bioprosthetic AVR, paroxysmal atrial fibrillation on chronic anticoagulation and other medical problems presents with history of generalized weakness and worsening bilateral leg swelling. He admits to missing his dialysis yesterday secondary to inability to ambulate due to weakness. He is currently taking IV antibiotics for bacteremia. He admits to having intermittent diarrhea since last few days. Denies any nausea, vomiting, abdominal pain. Please review HPI for complete details of presentation. Blood work suggestive of leukocytosis with white count of 20 K, subtherapeutic INR 1.9, hyperkalemia 6.1, uremia BUN 88, creatinine 10.0, hyperphosphatemia. Chest x-ray suggestive of possible pneumonitis. Patient denies any cough, shortness of breath, wheezing, fever. On exam patient is chronically appearing, normocephalic atraumatic, lungs normal breath sounds, clear to auscultation, irregularly irregular rhythm, no murmur, abdomen soft nontender, bilateral 3+ lower extremity edema, decreased right lower extremity strength 3/5--chronic, grossly no other focal neurological deficits. Patient is admitted for management of Volume overload, hyperkalemia, renal insufficiency requiring dialysis, ambulatory dysfunction and generalized weakness. Patient was recently started on prednisone taper for possible polym yalgia rheumatica. Patient received calcium gluconate, insulin while in ED. Will consult nephrology for dialysis. Check stool for C. difficile. Will repeat chest x-ray in a.m. to assess for possible infection. Taper down prednisone to avoid steroid induced myopathy. Will increase Coumadin dose to adjust for PT/INR. Leukocytosis likely secondary to prednisone use. We will continue Rocephin to complete the course for bacteremia. We will repeat blood cultures to rule out persistence of bacteremia. Will hold any other antibiotics for now. PT OT requested for evaluation. Will repeat BMP and monitor for electrolyte imbalances. Consider heparin bridge if INR remains subtherapeutic. I personally reviewed the record. Patient is interviewed and examined at bedside. Patient's care is coordinated with Sofia Sepulveda PA-C. Please refer to the documentation above for details of patient's presentation and for discussion of other issues.
[2019-05-21 14:07] LABS: Basophils # (auto) 0.04 K/uL (0-0.2); Basophils % (auto) 0.2 %; Eosinophils # (auto) 0.02 K/uL (0-0.5); Eosinophils % (auto) 0.1 %; Hematocrit (blood only) 27.6 % (42-52); Hemoglobin 9.4 g/dL (14.0-18.0); Immature Granulocytes # (auto) 0.13 K/uL (0.00-0.02); Immature Granulocytes % (auto) 0.6 %; Lymphocytes # (auto) 0.89 K/uL (1.2-3.4); Lymphocytes % (auto) 4.3 %; Mean Corpuscular Hgb Conc 34.1 g/dL (32-36); Mean Corpuscular Volume 109.5 fL (80-100); Mean Platelet Volume 11.6 fL (7.4-10.4); Monocytes # (auto) 0.63 K/uL (0.11-0.59); Neutrophils # (auto) 18.99 K/uL (1.4-6.5); Neutrophils % (auto) 91.8 %; Platelet Count 165 K/uL (130-400); RDW Coefficient of Variation 16.1 % (11.5-14.5); Red Blood Count 2.52 M/uL (4.7-6.1)
[2019-05-21 14:18] LABS: INR 1.9 (0.9-1.1); Prothrombin Time 18.6 Seconds (9.0-12.0)
--- NOTE | 2019-05-21 14:24 | XRay Report ---
SINGLE VIEW PELVIS CLINICAL HISTORY: Chronic low back pain. FINDINGS: An AP view of the pelvis is correlated with pelvic CT dated 05/09/2019. The skeletal structur es are osteopenic. A bipolar right hip arthroplasty is in near-anatomic alignment. There is no eviden ce of fracture involving the hips or bony pelvis. Mild degenerative joint space narrowing is seen in the left hip. Degenerative sclerosis is noted in the sacroiliac joints. Lumbosacral spondylosis is pa rtially imaged. Enthesophytes arise from the anterior superior iliac spines. Numerous phleboliths are seen in the pelvis. There is advanced atherosclerotic calcification of the femoral arteries. IMPRESSION: No acute bony abnormality is identified. Electronically signed by: Guilherme Cummings M.D. 05/21/2019 2:23 PM
--- NOTE | 2019-05-21 14:26 | XRay Report ---
XR lumbar spine 2-3V HISTORY: 84 years-old Male back pain chronic low back pain COMPARISON: CT lumbar spine 05/09/2019 TECHNIQUE: 3 views of the lumbar spine FINDINGS: Demineralized appearance the bones. Mild convex right curvature of the lumbar spine. Severe multileve l disc space narrowing with spondylitic spurring and advanced facet arthrosis. Chronic T12 compressio n deformity redemonstrated. No acute fracture or subluxation identified. Right hip total joint arthro plasty. Vascular calcifications are noted. IVC filter. Gas-filled loops of small and large bowel are noted throughout the abdomen. IMPRESSION: 1. No acute fracture or subluxation. 2. Chronic degenerative changes, better evaluated on comparison CT 05/09/2019. 3. Remote T12 compression deformity. The above report was generated using voice recognition software. It may contain grammatical, syntax o r spelling errors. Electronically signed by: Mark Anthony Dickson M.D. 05/21/2019 2:25 PM
[2019-05-21] MEDS ORDERED: SODIUM CHLORIDE 0.9% 1000ML 1,000 ML IV PRN (15:30)
--- NOTE | 2019-05-21 15:44 | Nephrology Consultation ---
Date of Consultation May 21, 2019 Assessment & Plan (1) ESRD (end stage renal disease) on dialysis: missed HD yesterday > plan 3.5 hr today -plan another tx tomorrow, both w/ uf as tolerated Present on Admission?: Yes (2) Hyperkalemia: had IV insuliln and calcium IV in ER>> definitive tx will be HD Present on Admission?: Yes (3) Volume overload: as aggressive uf as tolerated Present on Admission?: Yes (4) Weakness: likely multifactorial; per primary service Present on Admission?: Yes (5) Back pain: low threshold to repeat blood cxs; imaging negative for acute process Present on Admission?: Yes History of Present Illness Reason for Consultation: esrd on dialysis Requesting Physician: Dr Barnes Attending Physician: Dr Barnes History of Present Illness 84 y/o M admitted today for mgt of generalized weakness, hyperkalemia, and volume overload whom I'm asked to see for dialysis mgt. PMH includes HD on TRSat HD, paroxysmal a flutter s/p ablation, s/p bioprosthetic AVR, nonocclusive CAD, chronic R HF, hx of PE on chronic warfarin, hx of carotid stenosis s/p R CEA, DM, obesity, HL, chronic anemia / thrombocytopenia. He dialyses at [facility] using AVF under my care. He generally does not have frequent hospital stays but this summer started w/ PNA, then bacteremia admission, then severe back pain all in the past few months. He was started during these admissions on steroids for PMR, though when I reviewed his meds last week at HD he was not taking this. He missed HD yesterday b/c of weakness and edema so severe he could not get his shoes on. His fluid status has been challenging at HD lately >> he has lost wt but is also very weak and often hypotensive w/ sbp in 80-100s at times -- we have been limited in fluid removal though he has considerable edema as OP. Allergies Allergy/AdvReac Type Severity Reaction Status Date / Time aspirin Allergy Unknown . Verified 05/21/19 10:48 salicylates Allergy Unknown UNKNOWN Verified 05/21/19 10:48 Home Medications Home Medications Medication Instructions Recorded Confirmed Type acetaminophen [Tylenol Extra 500 mg PO Q6H PRN 06/14/18 05/21/19 History Strength] cholecalciferol (vitamin D3) 1,000 unit PO DAILY 06/14/18 05/21/19 History [Vitamin D3] omeprazole 20 mg PO DAILY 06/14/18 05/21/19 History Sherley-Neeraj 1 tab PO DAILY 03/18/19 05/21/19 History docusate sodium 100 mg PO BID PRN 03/18/19 05/21/19 History fluticasone propionate [Flonase 1 spray INTRANASAL DAILY PRN 03/18/19 05/21/19 History Allergy Relief] sevelamer carbonate 800 mg PO TIDM 03/18/19 05/21/19 History vitamin B complex 1 tab PO DAILY 03/18/19 05/21/19 History warfarin [Coumadin] 2.5 mg PO DAILY 03/18/19 05/21/19 History prednisone 10 mg PO DAILY 30 Days #30 tab 05/12/19 05/21/19 Rx ceftriaxone 2 g IV DAILY 05/21/19 05/21/19 History metoprolol succinate 50 mg PO DAILY 05/21/19 05/21/19 History omega 1-[id number]-awn-fish oil [Fish Oil] 1 cap PO DAILY 05/21/19 05/21/19 History Patient History Medical History GERD (gastroesophageal reflux disease) (Chronic) ESRD (end stage renal disease) on dialysis (Chronic) Dyslipidemia (Chronic) HTN (hypertension) (Chronic) Type 2 diabetes mellitus (Chronic) Pulmonary embolus (Chronic) Aortic valve insufficiency (Chronic) DVT (deep venous thrombosis) (Chronic) " 01/13/09 left leg " 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) "01/27/09, OD " Atrial flutter (Chronic) Anemia (Chronic) Surgical History S/P ablation of atrial flutter (Chronic) History of total hip replacement (Chronic) History of hydrocelectomy (Chronic) H/O superior vena cava filter placement (Chronic) H/O removal of testicle (Chronic) H/O carotid endarterectomy (Chronic) "[id number]" S/P aortic valve replacement (Chronic) "bio prosthetic" S/P cardiac cath (Chronic) "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" Family History Mother Hypertension Brother Stroke Social History Preferred Language: Cymro Communication Ability: Effective Visual Impairment: Partially Limited Desktop Publishing Specialist Required: Yes Beliefs That Will Affect Care: None marital status: Current Living Situation: Spouse Current Living Situation Comment: lives with Vannesa and six dogs in three story home. Other Information That Helps Us Care for You: No Feels Safe at Home: Yes Safety Concerns: Feels Safe At This Time Smoking Status: Never smoker Do You Dip or Chew Tobacco: No ; Second Hand Exposure: No ; Hx Alcohol Use: No Hx Substance Use: No Review of Systems Review of Systems: All systems reviewed & are unremarkable except as noted in HPI & below Constitutional: + body aches, + fatigue and + weakness; no fever and no chills Eyes: no worsening vision Ear, Nose, Mouth, Throat: no dry mouth Respiratory: + dyspnea and + dyspnea on exertion (stable chronic); no cough Cardiovascular: as per Subjective / HPI and + edema; no chest pain and no palpitations Gastrointestinal: no abdominal pain, no vomiting and no diarrhea/loose stools Musculoskeletal: + back pain, + joint pain, + swelling and + muscle weakness Integumentary: no rash and no non-healing lesions Neurologic: + generalized weakness Endocrine: + fatigue Hematologic / Lymphatic: no easy bleeding Physical Exam Constitutional: well developed and well nourished; no acute distress Eyes: EOM intact bilaterally ENMT: Ears: no external ear abnormality Nose: no external nose abnormality Mouth: + dry oral mucous membranes Neck: no nuchal rigidity Respiratory: normal respiratory effort Auscultation: lungs clear to auscultation bilaterally and + diminished lung sounds Cardiovascular: Rate/Rhythm: + tachycardic and + irregularly irregular Extremities: + edema and + AV fistula Gastrointestinal (Abdomen): Inspection/Auscultation: normal bowel sounds Percussion/Palpation: abdomen soft; abdomen nontender Musculoskeletal: Extremities: strength 5/5 throughout uribe, fluent speech Skin: no rashes, warm and dry Neurologic: uribe, fluent speech, no tremor Psychiatric: A+Ox3, euthymic affect Results & Data Vital Signs (Past 12 Hours) Vital Signs Temp Pulse Pulse Resp BP BP Pulse Ox 05/21/19 14:10 88 20 166/98 H 96 05/21/19 11:58 88 20 155/89 H 96 05/21/19 10:44 95 05/21/19 10:22 36.8 C 77 20 175/71 H 96 Laboratory Results Abnormal lab results 05/21/19 05/21/19 05/21/19 Range/Units 11:14 13:27 13:27 WBC 20.70 H (4.8-10.8) K/uL RBC 2.52 L (4.7-6.1) M/uL Hgb 9.4 L (14.0-18.0) g/dL Hct 27.6 L (42-52) % MCV 109.5 H (80-100) fL MCH 37.3 H (25-34) pg RDW Std Deviation 64.0 H (36.4-46.3) fL RDW Coeff of Elvia 16.1 H (11.5-14.5) % MPV 11.6 H (7.4-10.4) fL Immature Gran # (Auto) 0.13 H (0.00-0.02) K/uL Neut # (Auto) 18.99 H (1.4-6.5) K/uL Lymph # (Auto) 0.89 L (1.2-3.4) K/uL Wetzel # (Auto) 0.63 H (0.11-0.59) K/uL PT 18.6 H (9.0-12.0) Seconds INR 1.9 H (0.9-1.1) Sodium 134 L (136-145) mmol/L Potassium 6.1 H* (3.5-5.1) mmol/L Chloride 95 L (98-107) mmol/L Anion Gap 16.0 H (3-11) BUN 88 H (7-18) mg/dl Creatinine 10.00 H* (0.6-1.4) mg/dl BUN/Creatinine Ratio 8.8 L (10-20) Glucose 214 H (70-99) mg/dl Calcium 7.6 L (8.5-10.1) mg/dl Phosphorus 7.1 H (2.5-4.9) mg/dl AST 13 L (15-37) U/L Alkaline Phosphatase 122 H (45-117) U/L Albumin 2.2 L (3.4-5.0) gm/dl Globulin 5.8 H (2.5-4.0) gm/dl Albumin/Globulin Ratio 0.4 L (0.9-2) Diagnostic Findings L spine XR 1. No acute fracture or subluxation. 2. Chronic degenerative changes, better evaluated on comparison CT 05/09/2019. 3. Remote T12 compression deformity. Pelvic XR > no acute errol abnormality CXR > 1. Cardiomegaly without radiographic evidence of congestive failure. 2. There are dependent bibasilar airspace opacities, likely representing scarring/atelectasis. Correlate clinically for evidence of a mild superimposed infectious/inflammatory pneumonitis. Chest CT 05/10/19 1. Streak and motion compromised examinations. 2. Small right and trace left pleural effusions with fluid seen tracking along the major fissure. 3. Dependent airspace consolidation is again seen at the right lung base. Additionally, there are numerous foci of tree-in-bud nodularity scattered throughout both lungs. The appearance suggests an infectious/inflammatory pneumonitis. This may be atypical/chronic. Consider pulmonology follow-up. This appears minimally improved from the 05/01/2019 examination. 4. No acute osseous abnormality is seen involving the thoracic spine. 5. There is a mild chronic compression deformity of T12. Spondylotic change of the thoracic spine is detailed above. 6. Nodularity of the hepatic surface contour suggests early change of cirrhosis. (1) Back pain Back pain laterality: midline Back pain location: low back pain Chronicity: acute Sciatica presence: without sciatica Qualified Code(s): M54.5 - Low back pain (2) Volume overload Hypervolemia type: unspecified Qualified Code(s): E87.70 - Fluid overload, unspecified
[2019-05-21] MEDS ORDERED: HEPARIN SOD (PORCINE) 1000 UNIT/ML 10 ML VIAL IV SCH (16:00)
[2019-05-21] MEDS ORDERED: ACETAMINOPHEN 325 MG TAB PO PRN (16:39)
[2019-05-21] MEDS ORDERED: ONDANSETRON INJ 2 MG/ML 2 ML VIAL IV PRN (16:39)
[2019-05-21] MEDS ORDERED: NON-FORMULARY MEDICATION (Ceftriaxone 2 GM) IV SCH (16:39)
[2019-05-21] MEDS ORDERED: GLUCOSE 10 TABS/TUBE PO PRN (16:39)
[2019-05-21] MEDS ORDERED: GLUCAGON FOR INJ 1 MG VIAL SQ PRN (16:39)
[2019-05-21] MEDS ORDERED: CARBOHYDRATES FOR HYPOGLYCEMIA PO PRN (16:39)
[2019-05-21] MEDS ORDERED: DEXTROSE 50% 50 ML SYRINGE IV PRN (16:39)
[2019-05-21] MEDS ORDERED: GLUCOSE 40% GEL 15 GM TUBE PO PRN (16:39)
[2019-05-21] MEDS ORDERED: DOCUSATE SODIUM 100 MG CAP PO PRN (16:45)
[2019-05-21] MEDS: HEPARIN SOD (PORCINE) 1000 UNIT/ML 10 ML VIAL IV SCH ×2 (17:00→18:06)
[2019-05-21] MEDS ORDERED: WARFARIN SOD 2.5 MG TAB PO SCH ×2 (17:15)
[2019-05-21] MEDS ORDERED: WARFARIN SOD 1 MG TAB PO SCH (17:15)
[2019-05-21] MEDS: INSULIN ASPART 100 UNITS/ML 3 ML PEN SC SCH ×2 (18:48→20:45)
--- NOTE | 2019-05-21 19:10 | Emergency Department Note ---
Entered by Sara Collins acting as a scribe for History of Present Illness General Chief complaint: Swelling/Edema to Extremity Time Seen by Provider: 05/21/19 10:26 Source: patient and family History of Present Illness Provider complaint: lower extremity swelling Onset (ago): day(s) 1 Location: lower extremity Radiation: other (knees) Pain Consistency: + other (episode) Maximum Pain Intensity: 6 Quality: + other (swelling) Associated symptoms: + denies other symptoms (congestion), + weakness and + other (missed dialysisi treatment yesterday, cannot walk, pain is "heavy" in legs, back pain, diarrhea, urinating a little bit on his own); no cough and no fever/chills The patient is an 84 year old male who presents to the ED with complaints of an episode of lower extremity swelling that began 1 day ago. Per daughter, the patient gets dialysis treatments on Tuesdays, and Saturdays. The patients daughter states that he missed his dialysis treatment yesterday because he was too weak, in too much pain and could not walk. The patient describes his pain as heavy. Per , the patients swelling radiates up to his knees. The patient states that he also has diarrhea and constant back pain. The patient notes that he still urinates a little bit on his own. Per daughter, the patient had his right hip replaced 27 years ago and has trouble walking at baseline. The patient denies fever, chills, cough and congestion. Home Medications Home Medications Medication Instructions Recorded Confirmed Type acetaminophen [Tylenol Extra 500 mg PO Q6H PRN 06/14/18 05/21/19 History Strength] cholecalciferol (vitamin D3) 1,000 unit PO DAILY 06/14/18 05/21/19 History [Vitamin D3] omeprazole 20 mg PO DAILY 06/14/18 05/21/19 History Sehrley-Neeraj 1 tab PO DAILY 03/18/19 05/21/19 History docusate sodium 100 mg PO BID PRN 03/18/19 05/21/19 History fluticasone propionate [Flonase 1 spray INTRANASAL DAILY PRN 03/18/19 05/21/19 History Allergy Relief] sevelamer carbonate 800 mg PO TIDM 03/18/19 05/21/19 History vitamin B complex 1 tab PO DAILY 03/18/19 05/21/19 History warfarin [Coumadin] 2.5 mg PO DAILY 03/18/19 05/21/19 History prednisone 10 mg PO DAILY 30 Days #30 tab 05/12/19 05/21/19 Rx ceftriaxone 2 g IV DAILY 05/21/19 05/21/19 History metoprolol succinate 50 mg PO DAILY 05/21/19 05/21/19 History omega 3-ejv-kdi-fish oil [Fish Oil] 1 cap PO DAILY 05/21/19 05/21/19 History Allergies Allergy/AdvReac Type Severity Reaction Status Date / Time aspirin Allergy Unknown . 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) "01/27/09, OD " Atrial flutter (Chronic) Anemia (Chronic) Surgical History S/P ablation of atrial flutter (Chronic) History of total hip replacement (Chronic) History of hydrocelectomy (Chronic) H/O superior vena cava filter placement (Chronic) H/O removal of testicle (Chronic) H/O carotid endarterectomy (Chronic) "2008" S/P aortic valve replacement (Chronic) "bio prosthetic" S/P cardiac cath (Chronic) "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 Other Information That Helps Us Care for You: No Feels Safe at Home: Yes Safety Concerns: Feels Safe At This Time Smoking Status: Never smoker Do You Dip or Chew Tobacco: No ; Second Hand Exposure: No ; Hx Alcohol Use: No Hx Substance Use: No Review of Systems See HPI for pertinent positives & negatives. and A total of 10 systems reviewed and were otherwise negative Physical Exam Vital Signs Vital Signs - 24 hr 05/21/19 10:22 05/21/19 10:44 05/21/19 11:58 Temperature 36.8 C Temperature Source Oral Sepsis Recent Fever Within 48 Hours No Sepsis Action Taken by Nursing No Action Required Pulse Rate 77 Pulse Rate [Left] 88 Pulse Rhythm Regular Pulse Rhythm [Left] Regular Pulse Strength Normal Pulse Strength [Left] Normal Respiratory Rate 20 20 Respiratory Effort / Characteristics Non-Labored Spontaneous SOB on Exertion Respiratory Depth Normal Normal Blood Pressure 175/71 H Blood Pressure [Right Arm] 155/89 H Blood Pressure Mean 105 Blood Pressure Mean [Right Arm] 111 Blood Pressure Position Lying Blood Pressure Position [Right Arm] Lying Pulse Oximetry 96 95 96 Oxygen Delivery Method Room Air Room Air Room Air GENERAL: Awake, alert, chronically ill-appearing, in no distress HENT: Normocephalic, atraumatic. Oropharynx with dry mucous membranes and other church unremarkable. EYES: Normal conjunctiva. Sclera non-icteric. NECK: Supple. No nuchal rigidity. FROM. No JVD. RESPIRATORY: Clear to auscultation bilaterally. CARDIAC: Regular rate, normal rhythm. Extremities warm and well perfused. Pulses equal. ABDOMEN: Soft, non-distended. No tenderness to palpation. No rebound or guarding. No masses. RECTAL: Deferred. MUSCULOSKELETAL: Chest examination reveals no tenderness. The back is symmetrical on inspection without obvious abnormality. There is no CVA tenderness to palpation. No joint edema. LOWER EXTREMITIES: 4+ bilateral lower extremity edema. Nontender. NEURO: Normal sensorium. No sensory or motor deficits noted. SKIN: No rash or jaundice noted. Course 1104: Past medical records reviewed. The patient was evaluated in room A9. A complete history and physical exam was performed. 1228: I discussed the patient's case with Sofia Hurst PA-C. She will be accepting the patient for Dr. Jairon Hurst, Hospitalist. They will evaluate the patient for further management. Consultations Consultation #1: I discussed the patient's case with Sofia Hurst PA-C. She will be accepting the patient for Dr. Jairon Hurst, Hospitalist. They will evaluate the patient for further management. Time: 12:28 Administered Medications Heparin Sodium (Porcine) (Heparin Iv Bolus) 400 units IV TODAY@1600,1700,[facility] Stop: 05/21/19 23:59 Last Admin: 05/21/19 18:06 Dose: Not Given Documented by: [id number] Admin: 05/21/19 18:06 Dose: Not Given Documented by: [id number] Admin: 05/21/19 17:00 Dose: Not Given Documented by: [id number] Heparin Sodium (Porcine) (Heparin Iv Bolus) 1,000 units IV TODAY@[facility] Stop: 05/21/19 23:59 Last Admin: 05/21/19 15:55 Dose: 1,000 units Documented by: [id number] Cosigned by: [id number] Ceftriaxone Sodium 2,000 mg/ (Dextrose) 70 mls @ 140 mls/hr IV Q24H JAMES; Protocol Stop: 05/22/19 17:29 Last Infusion: 05/21/19 20:43 Dose: 0 mls/hr Documented by: [id number] Admin: 05/21/19 20:12 Dose: 140 mls/hr Documented by: [id number] Insulin Aspart (Novolog Flexpen) 0 units SC ACHS JAMES Stop: 06/20/19 16:38 Last Admin: 05/21/19 20:45 Dose: 5 units Documented by: [id number] Cosigned by: [id number] Admin: 05/21/19 18:48 Dose: Not Given Documented by: [id number] Cosigned by: [id number] Sevelamer HCl (Renagel) 800 mg PO TIDM JAMES Stop: 06/20/19 16:59 Last Admin: 05/21/19 20:11 Dose: 800 mg Documented by: [id number] Discontinued Medications Dextrose (Dextrose 50%) 50 ml IV NOW STA Stop: 05/21/19 12:23 Last Admin: 05/21/19 14:36 Dose: 50 ml Documented by: [id number] Calcium Gluconate 2,000 mg/ (Sodium Chloride) 70 mls @ 240 mls/hr IV NOW STA Stop: 05/21/19 12:36 Last Infusion: 05/21/19 14:55 Dose: 0 mls/hr Documented by: [id number] Admin: 05/21/19 14:35 Dose: 240 mls/hr Documented by: [id number] Insulin Human Regular 10 units (/ Syringe) 9.9 mls @ 3 mls/sec IV ONE STA Stop: 05/21/19 12:23 Last Admin: 05/21/19 14:37 Dose: 3 mls/sec Documented by: [id number] Cosigned by: [id number] Warfarin Sodium (Coumadin) 2.5 mg PO DAILY@1600 JAMES; Protocol Stop: 05/21/19 17:16 Last Admin: 05/21/19 17:40 Dose: 2.5 mg Documented by: [id number] Warfarin Sodium (Coumadin) 1 mg PO DAILY@1600 JAMES; Protocol Stop: 05/21/19 17:16 Last Admin: 05/21/19 17:40 Dose: 1 mg Documented by: [id number] Medical Decision Making Differential Diagnosis Differential diagnosis: Etiologies such as metabolic, infection, hypo/hyperglycemia, electrolyte abnormalities, cardiac sources, intracerebral event, toxicologic, neurologic, as well as others were entertained. Medical Records Attestation: I reviewed the patient's medical records. Home Medications Current Medication List: was personally reviewed by me Laboratory Data Attestation: I reviewed the patient's lab results. Result diagrams: 05/21/19 13:27 05/21/19 21:01 Lab Results 05/21/19 05/21/19 Range/Units 11:14 11:14 WBC Cancelled RBC Cancelled Hgb Cancelled Hct Cancelled MCV Cancelled MCH Cancelled MCHC Cancelled RDW Std Deviation Cancelled RDW Coeff of Elvia Cancelled Plt Count Cancelled MPV Cancelled Immature Gran % (Auto) Cancelled Neut % (Auto) Cancelled Lymph % (Auto) Cancelled [place] % (Auto) Cancelled Eos % (Auto) Cancelled Baso % (Auto) Cancelled Immature Gran # (Auto) Cancelled Neut # (Auto) Cancelled Lymph # (Auto) Cancelled [place] # (Auto) Cancelled Eos # (Auto) Cancelled Baso # (Auto) Cancelled Absolute Nucleated RBC Cancelled Nucleated RBC % (auto) Cancelled Neutrophils % (Manual) Cancelled Band Neutrophils % Cancelled Lymphocytes % (Manual) Cancelled Prolymphocyte % Cancelled Reactive Lymphs % (Man) Cancelled Monocytes % (Manual) Cancelled Eosinophils % (Manual) Cancelled Basophils % (Manual) Cancelled Metamyelocytes % (Man) Cancelled Myelocytes % (Man) Cancelled Promyelocytes % (Man) Cancelled Blast Cells % (Manual) Cancelled Plasma Cell % (Manual) Cancelled Other Cells % Cancelled Nucleated RBC % Cancelled Neutrophils # (Manual) Cancelled Band Neutrophils # Cancelled Total Absolute Neuts Cancelled Lymphocytes # (Manual) Cancelled Prolymphocyte # Cancelled Reactive Lymphs # Cancelled Total Abs Lymphocytes Cancelled Monocytes # (Manual) Cancelled Eosinophils # (Manual) Cancelled Basophils # (Manual) Cancelled Metamyelocytes # (Man) Cancelled Myelocytes # (Manual) Cancelled Promyelocytes # (Man) Cancelled Blast Cells # (Man) Cancelled Plasma Cell # (Manual) Cancelled Other Cells # Cancelled Nucleated RBCs # (Man) Cancelled Hypersegmented Neuts Cancelled Hyposegmented Neuts Cancelled Hypogranular Neuts Cancelled Large Granular Lymphs Cancelled # Lrg Granular Lymphs Cancelled Hairy Cells Cancelled Smudge Cells Cancelled Toxic Granulation Cancelled Toxic Vacuolation Cancelled Dohle Bodies Cancelled Nixon Rods Cancelled Platelet Estimate Cancelled Hypogranular Platelets Cancelled Clumped Platelets Cancelled Giant Platelets Cancelled Platelet Satelliting Cancelled RBC Morphology Cancelled Polychromasia Cancelled Hypochromasia Cancelled Poikilocytosis Cancelled Basophilic Stippling Cancelled Anisocytosis Cancelled Microcytosis Cancelled Macrocytosis Cancelled Spherocytes Cancelled Pappenheimer Bodies Cancelled Sickle Cells Cancelled Target Cells Cancelled Tear Drop Cells Cancelled Ovalocytes Cancelled Stomatocytes Cancelled [place] Bodies Cancelled Echinocytes Cancelled Acanthocytes (Spur) Cancelled Rouleaux Cancelled RBC Agglutinates Cancelled Schistocytes Cancelled RBC Morph Comment Cancelled Sezary Cell Cancelled Sodium 134 L (136-145) mmol/L Potassium 6.1 H* (3.5-5.1) mmol/L Chloride 95 L (98-107) mmol/L Carbon Dioxide 23 (21-32) mmol/L Anion Gap 16.0 H (3-11) BUN 88 H (7-18) mg/dl Creatinine 10.00 H* (0.6-1.4) mg/dl Est Cr Clr Drug Dosing 6.0 ml/min Est GFR ( Amer) 4.9 Est GFR (Non-Af Amer) 4.3 BUN/Creatinine Ratio 8.8 L (10-20) Glucose 214 H (70-99) mg/dl Calcium 7.6 L (8.5-10.1) mg/dl Phosphorus 7.1 H (2.5-4.9) mg/dl Magnesium 2.2 (1.8-2.4) mg/dl Total Bilirubin 0.3 (0.2-1) mg/dl AST 13 L (15-37) U/L ALT 22 (12-78) U/L Alkaline Phosphatase 122 H (45-117) U/L Troponin I < 0.015 (0-0.045) ng/ml Total Protein 8.0 (6.4-8.2) gm/dl Albumin 2.2 L (3.4-5.0) gm/dl Globulin 5.8 H (2.5-4.0) gm/dl Albumin/Globulin Ratio 0.4 L (0.9-2) Lipase 372 (73-393) U/L Imaging Data Radiologist's Impression: Radiology results as stated below per my review and the radiologist's interpretation: SINGLE VIEW CHEST CLINICAL HISTORY: Atypical chest pain. FINDINGS: An AP, portable, upright chest radiograph is compared to study dated 05/09/2019 and correlated with chest CT dated 05/10/2019. The examination is degraded by portable technique and patient rotation. The patient is status post midline sternotomy. The heart is enlarged and there is atherosclerotic calcification of the thoracic aorta. The pulmonary vasculature is noncongested. Chronic interstitial thickening is similar to previous. There are dependent bibasilar airspace opacities. No large pleural effusion or pneumonia thorax is seen. The skeletal structures are osteopenic. The bony thorax is grossly intact. IMPRESSION: 1. Cardiomegaly without radiographic evidence of congestive failure. 2. There are dependent bibasilar airspace opacities, likely representing scarring/atelectasis. Correlate clinically for evidence of a mild superimposed infectious/inflammatory pneumonitis. Electronically signed by: Guilherme Cummings M.D. 05/21/2019 11:02 AM XR lumbar spine 2-3V HISTORY: 84 years-old Male back pain chronic low back pain COMPARISON: CT lumbar spine 05/09/2019 TECHNIQUE: 3 views of the lumbar spine FINDINGS: Demineralized appearance the bones. Mild convex right curvature of the lumbar spine. Severe multilevel disc space narrowing with spondylitic spurring and advanced facet arthrosis. Chronic T12 compression deformity redemonstrated. No acute fracture or subluxation identified. Right hip total joint arthroplasty. Vascular calcifications are noted. IVC filter. Gas-filled loops of small and large bowel are noted throughout the abdomen. IMPRESSION: 1. No acute fracture or subluxation. 2. Chronic degenerative changes, better evaluated on comparison CT 05/09/2019. 3. Remote T12 compression deformity. The above report was generated using voice recognition software. It may contain grammatical, syntax or spelling errors. Electronically signed by: Mark Anthony Dickson M.D. 05/21/2019 2:25 PM SINGLE VIEW PELVIS CLINICAL HISTORY: Chronic low back pain. FINDINGS: An AP view of the pelvis is correlated with pelvic CT dated 05/09/2019. The skeletal structures are osteopenic. A bipolar right hip arthroplasty is in near-anatomic alignment. There is no evidence of fracture involving the hips or bony pelvis. Mild degenerative joint space narrowing is seen in the left hip. Degenerative sclerosis is noted in the sacroiliac joints. Lumbosacral spondylosis is partially imaged. Enthesophytes arise from the anterior superior iliac spines. Numerous phleboliths are seen in the pelvis. There is advanced atherosclerotic calcification of the femoral arteries. IMPRESSION: No acute bony abnormality is identified. Electronically signed by: Guilherme Cummings M.D. 05/21/2019 2:23 PM ECG Data Attestation: I personally reviewed and interpreted this ECG as follows: Indication: other (hyperkalemia) Rate (beats per minute): 78 Rhythm: atrial flutter (with variable AV block) Findings: + other (normal axis) and + nonspecific-ST abn; no ST depression, no ST elevation and no acute ischemic change Blood Pressure Blood Pressure Findings: Elevated blood pressure Blood Pressure Disposition: further management by hospitalist CLAIRE Thacker The patient is a pleasant 84-year-old gentleman with a past medical history of end-stage renal disease on hemodialysis, CHF, GERD, aortic valve replacement, aflutter/DVT on Coumadin, s/p IVC filter who presents emergency department with worsening generalized weakness and heaviness and swelling in his legs after missing dialysis on Sunday and unable to go today due to his immobility per hpi. On arrival patient is chronically ill-appearing but no acute distress, afebrile stable vital signs. On exam the patient exhibits 4+ bilateral lower extremity pitting edema. EKG demonstrates a flutter with nonspecific ST abnormalities. Chest x-ray with chronic interstitial thickening in the setting of the patient's ESRD with likely basilar atelectasis. WBC 20.7, nonspecific, likely related to prednisone as patient denies fevers or cough. H/H 9.4/27.6 in the setting of having missed dialysis. Platelets is within normal limits. Chemistry without acidosis. However does demonstrate elevated potassium at 6.1 with BUN of 88 and creatinine of 10 in the setting of patient having missed dialysis. By the patient's EKG did not demonstrate any peaked T waves given the patient's elevated potassium he was treated with calcium and insulin with glucose. Given the patient's lab abnormalities in the setting of his missed dialysis but also in the setting of his decreased functional status due to his bilateral lower extremity edema reasonable to admit the patient for dialysis and likely placement. Patient and family are agreeable with this plan. Case was discussed with Aris Roberts PA-C, who will evaluate the patient fo r admission. Impression & Plan Hyperkalemia, Volume overload Critical Care Time Critical Care Time: Yes Total Critical Care Time: 35 I have personally spent 35 minutes of critical care time in the direct management of this patient. This includes bedside care, interpretation of diagnostic studies, and testing, discussion with consultants, patient, and family members, and other required patient management activities. This 35 minutes is in excess of all separately billable procedures. Discharge Plan Visit Data *Final* Discharge Date/Time: 05/21/19 15:15 Chief Complaint: Swelling/Edema to Extremity ED Provider: Loi Rodriguez Discharge Problem: Hyperkalemia, Volume overload Patient Disposition: Admitted As Inpatient Discharge Instructions Interventions: ED Discharge Assessment Last Done: 05/21/19 15:15 Discharge Problem: Volume overload Qualifiers: Hypervolemia type: unspecified Qualified Code(s): E87.70 - Fluid overload, unspecified The scribe's documentation has been prepared under my direction and personally reviewed by me in its entirety. I confirm that the note above accurately reflects all work, treatment, procedures, and medical decision making performed by me.
[2019-05-21] MEDS: SEVELAMER HCL 800 MG TABLET PO SCH (20:11)
[2019-05-21] MEDS: cefTRIAXone SODIUM 2,000 MG in DEXTROSE 5% 50 ML IV SCH (20:12)
[2019-05-21 21:44] LABS: BUN Creatinine Ratio 6.9 (10-20); Calcium 8.4 mg/dl (8.5-10.1); Est GFR (African American) 10.2; Est GFR (Non-African American) 8.8; Potassium 4.2 mmol/L (3.5-5.1)
--- NOTE | 2019-05-21 22:44 | Dialysis Progress Note ---
Date of Service May 21, 2019 Assessment & Plan (1) ESRD (end stage renal disease) on dialysis: missed HD yesterday > plan 3.5 hr today -plan another tx tomorrow, both w/ uf as tolerated >> on track when I saw him to get 1.3-1.5L off (2) Hyperkalemia: had IV insuliln and calcium IV in ER>> definitive tx will be HD (3) Volume overload: as aggressive uf as tolerated (4) Weakness: likely multifactorial; per primary service (5) Back pain: low threshold to repeat blood cxs; imaging negative for acute process Subjective seen on HD this evening at about 1840; no sob, no palpitations, edema still severe but improving; + generalized weakness, + back and shoulder pain Review of Systems Review of Systems: All systems reviewed & are unremarkable except as noted in HPI & below Physical Exam Constitutional: well developed and well nourished; no acute distress in bed on ra Eyes: EOM intact bilaterally ENMT: Ears: no external ear abnormality Nose: no external nose abnormality Mouth: + dry oral mucous membranes Neck: no nuchal rigidity Respiratory: normal respiratory effort Auscultation: lungs clear to auscultation bilaterally and + diminished lung sounds Cardiovascular: Rate/Rhythm: + tachycardic and + irregularly irregular Extremities: + edema and + AV fistula Gastrointestinal (Abdomen): Inspection/Auscultation: normal bowel sounds Percussion/Palpation: abdomen soft; abdomen nontender Musculoskeletal: Extremities: strength 5/5 throughout Skin: no rashes, warm and dry Neurologic: uribe, fluient speech, visibly tired Psychiatric: A+Ox3, euthymic affect Results & Data Vital Signs (Past 12 Hours) Vital Signs Temp Pulse Pulse Pulse Resp BP BP 05/21/19 19:31 36.8 C 120 H 119 H 122/92 122/92 05/21/19 19:04 120 H 126/66 05/21/19 19:00 117 H 131/67 05/21/19 18:40 120 H 146/83 H 05/21/19 18:20 119 H 125/67 05/21/19 18:00 120 H 143/76 H 05/21/19 17:40 120 H 149/81 H 05/21/19 17:20 120 H 127/111 H 05/21/19 17:00 118 H 142/106 H 05/21/19 16:40 118 H 152/86 H 05/21/19 16:39 05/21/19 16:20 86 167/79 H 05/21/19 16:01 74 188/74 H 05/21/19 16:00 36.9 C 78 16 168/79 H 05/21/19 15:55 36.3 C L 78 05/21/19 14:10 88 20 166/98 H 05/21/19 11:58 88 20 155/89 H 05/21/19 10:44 Pulse Ox Pulse Ox 05/21/19 19:31 05/21/19 19:04 05/21/19 19:00 05/21/19 18:40 05/21/19 18:20 05/21/19 18:00 05/21/19 17:40 05/21/19 17:20 05/21/19 17:00 05/21/19 16:40 05/21/19 16:39 94 05/21/19 16:20 05/21/19 16:01 05/21/19 16:00 94 05/21/19 15:55 05/21/19 14:10 96 05/21/19 11:58 96 05/21/19 10:44 95 Laboratory Results reviewed (1) Volume overload Hypervolemia type: unspecified Qualified Code(s): E87.70 - Fluid overload, unspecified (2) Back pain Back pain laterality: midline Back pain location: low back pain Chronicity: acute Sciatica presence: without sciatica Qualified Code(s): M54.5 - Low back pain
[2019-05-22 05:43] LABS: Appearance Urine Turbid (Clear); Bacteria Urine Automated Negative (Negative); Bilirubin Urine Negative (Negative); Blood Urine 2+ (Negative); Color Urine Yellow; Epithelial Cell Urine Auto >30 /lpf (0-5); Glucose Urine UA Trace (Negative); Ketones Urine Negative (Negative); Leukocyte Esterase Urine 3+ (Negative); Nitrite Urine Negative (Negative); Specific Gravity Urine 1.014 (1.000-1.030); Urobilinogen Urine Negative (Negative); WBC Urine Automated >30 /hpf (0-5); pH Urine 7.5 (4.5-7.5)
[2019-05-22 06:06] LABS: INR 2.1 (0.9-1.1); Prothrombin Time 20.3 Seconds (9.0-12.0)
[2019-05-22 06:09] LABS: Hematocrit (blood only) 28.1 % (42-52); Mean Platelet Volume 11.8 fL (7.4-10.4); Platelet Count 182 K/uL (130-400); RDW Coefficient of Variation 16.4 % (11.5-14.5); RDW Standard Deviation 65.6 fL (36.4-46.3); Red Blood Count 2.51 M/uL (4.7-6.1); White Blood Count 10.13 K/uL (4.8-10.8)
[2019-05-22 06:14] LABS: Protein Urine 2+ (Negative)
[2019-05-22 06:36] LABS: BUN Creatinine Ratio 7.3 (10-20); Calcium 7.8 mg/dl (8.5-10.1); Creatinine Clr Calc Pharmacy 9.4 ml/min; Est GFR (African American) 8.4; Est GFR (Non-African American) 7.3; Potassium 4.6 mmol/L (3.5-5.1)
[2019-05-22] MEDS ORDERED: HEPARIN SOD (PORCINE) 1000 UNIT/ML 10 ML VIAL IV ONE (06:56)
[2019-05-22] MEDS ORDERED: SODIUM CHLORIDE 0.9% 1000ML 1,000 ML IV PRN (06:56)
[2019-05-22 07:13] LABS: Phosphorus 5.2 mg/dl (2.5-4.9)
[2019-05-22] MEDS: INSULIN ASPART 100 UNITS/ML 3 ML PEN SC SCH ×3 (07:48→16:46)
[2019-05-22] MEDS: SEVELAMER HCL 800 MG TABLET PO SCH ×3 (07:49→16:45)
--- NOTE | 2019-05-22 08:12 | XRay Report ---
XR chest 2V routine CLINICAL HISTORY: Atypical chest pain, abnormal chest x-ray. Follow-up study. COMPARISON STUDY: 05/21/2019 FINDINGS: The heart is enlarged. There are postsurgical changes of a midline sternotomy and aortic va lve replacement. There is a small right pleural effusion. There is persistent chronic interstitial th ickening.[ IMPRESSION: 1. Cardiomegaly and persistent chronic interstitial thickening 2. Small right pleural effusion Electronically signed by: Justice Gutierres M.D. 05/22/2019 8:09 AM
[2019-05-22] MEDS ORDERED: NEPHROCAPS PO SCH (09:00)
[2019-05-22] MEDS ORDERED: CHOLECALCIFEROL 1,000 UNITS TAB PO SCH (09:00)
[2019-05-22] MEDS ORDERED: VITAMIN B COMPLEX TAB PO SCH (09:00)
[2019-05-22] MEDS ORDERED: PANTOprazole 40 MG TAB PO SCH (09:00)
[2019-05-22] MEDS ORDERED: predniSONE 5 MG TAB PO SCH (09:00)
[2019-05-22] MEDS ORDERED: METOPROLOL SUCC 50MG EXT REL TAB PO SCH (09:00)
--- NOTE | 2019-05-22 09:58 | Hospitalist Progress Note ---
Date of Service May 22, 2019 Assessment & Plan (1) Missed dialysis: This is a 84-year-old male who has a significant past medical history of ESRD on HD //, T2DM, chronic right-sided CHF, HTN, HLD, nonobstructive CAD, history of bioprosthetic AVR, silica pneumoconiosis, chronic thrombocytopenia, paroxysmal atrial flutter, history of PE on chronic warfarin therapy, history of carotid artery stenosis status post right CEA who presents to [facility] ED secondary to weakness and missed HD x 1 day. Could not make to the dialysis center due to weakness and apparent fall More pain at the back initially Pain is much better this morning As a dialysis last night and will have dialysis this morning (2) Tachycardia: Noted to have tachycardia at baseline around 110s Has been on Toprol-XL 50 mg after dialysis Talk to the daughter and will advise to take the medications after dialysis every time (3) Weakness: Chronic problem Better at this morning We will get PT and OT evaluation (4) Ambulatory dysfunction: Secondary to multiple comorbid conditions He does well with PT and OT will be sent home this afternoon (5) End-stage renal disease (ESRD): (6) Hyperkalemia: k 6.1 received calcium gluconate 2,000mg and Regular Insulin 10units repeat K at 4pm along with ecg will need HD Potassium is 4.6 today (7) Gram-positive cocci in clusters: recent gram + MSSA bacteremia, no evident source identified to complete 2g rocephin dialy on 05/22 repeat blood cultures to ensure negative Will have last dose of intravenous ceftriaxone today DC PICC line following that dose of antibiotic (8) 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: cbc pending baseline hgb ~10 (9) Atrial flutter: hx of ablation now in chronic afib on metoprolol for rate control coumadin for anticoag INR remains therapeutic at 2.1 (10) Type 2 diabetes mellitus: A1C 7.3 on 05/10 not on any oral agents approp control given age and comorbidities hyperglycemic in ED likely in setting of recent prednisone use Novolog insulin per protocol (11) HTN (hypertension): pt hypertensive in ED likely in setting of missed HD continue metoprolol, tx SBP >180 or DBP >100 (12) Thrombocytopenia: hx of chronic low plt-lowest noted at 129 on the sixth of this month Platelet count is normal at 182 (13) 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 Craig upon discharge Subjective 05/22 Patient was seen and examined in telemetry unit He was admitted yesterday with a fall and fluid overload due to missing dialysis He has had dialysis last night and will have dialysis this morning to Denies any significant complaints Likely be discharged this afternoon/evening Review of Systems Review of Systems: All systems reviewed and are unremarkable except as noted Constitutional: + weakness Respiratory: no cough and no dyspnea Cardiovascular: no chest pain Neurologic: + generalized weakness Physical Exam Physical Exam: Sitting on bed without any symptoms Constitutional: well developed and well nourished; no acute distress and not ill appearing Eyes: PERRL, conjunctivae normal, anicteric sclerae ENMT: external ear and nose normal, oropharynx normal Mouth: + dry oral mucous membranes Neck: trachea midline, no thyromegaly no nuchal rigidity Respiratory: normal respiratory effort Auscultation: lungs clear to auscultation bilaterally, + diminished lung sounds and + crackles (Minimally bilateral with more on the right side) Cardiovascular: Rate/Rhythm: regular rate, + tachycardic and + irregularly irregular Extremities: + edema (1-2+ edema bilateral) and + AV fistula Gastrointestinal (Abdomen): Inspection/Auscultation: normal bowel sounds Percussion/Palpation: abdomen soft; abdomen nontender Skin: no rashes, warm and dry Neurologic: moves all extremities; no focal motor deficits Generally weak Psychiatric: A+Ox3, euthymic affect Lymphatic: no cervical or axillary lymphadenopathy Results & Data Vital Signs (Past 12 Hours) Vital Signs Temp Pulse Pulse Resp BP BP Pulse Ox 05/22/19 07:22 119 H 05/22/19 07:06 36.6 C 119 H 18 178/81 H 96 05/22/19 03:51 36.9 C 121 H 18 163/75 H 94 05/22/19 00:00 120 H 05/21/19 23:32 36.4 C L 119 H 19 148/80 H 96 Laboratory Results Short CBC 05/21/19 05/21/19 05/22/19 Range/Units 11:14 13:27 05:29 WBC Cancelled 20.70 H 10.13 D Hgb Cancelled 9.4 L 9.0 L Hct Cancelled 27.6 L 28.1 L Plt Count Cancelled 165 182 BMP 05/21/19 05/21/19 05/22/19 11:14 21:01 05:29 Sodium 134 L 134 L 134 L Potassium 6.1 H* 4.2 D 4.6 Chloride 95 L 91 L 93 L Carbon Dioxide 23 30 31 BUN 88 H 38 H D 47 H Creatinine 10.00 H* 5.49 H* D 6.41 H* D Glucose 214 H 171 H 133 H Calcium 7.6 L 8.4 L 7.8 L Cardiac Enzymes 05/21/19 Range/Units 11:14 Troponin I < 0.015 (0-0.045) ng/ml Liver Function 05/21/19 Range/Units 11:14 Total Bilirubin 0.3 (0.2-1) mg/dl AST 13 L (15-37) U/L ALT 22 (12-78) U/L Alkaline Phosphatase 122 H (45-117) U/L Albumin 2.2 L (3.4-5.0) gm/dl Urine 05/22/19 Range/Units 05:30 Urine Color Yellow Urine Appearance Turbid A (Clear) Urine pH 7.5 (4.5-7.5) Ur Specific [place] 1.014 (1.000-1.030) Urine Protein 2+ H (Negative) Urine Glucose (UA) Trace H (Negative) Medications Administered Current Inpatient Medications Acetaminophen (Tylenol) 650 mg PO Q4H PRN PRN Reason: Pain or Fever Stop: 06/20/19 16:38 Dextrose (Dextrose 50%) 25 - 50 ml IV UD PRN; Protocol PRN Reason: Hypoglycemia Protocol Stop: 06/20/19 16:38 Docusate Sodium (Colace) 100 mg PO BID PRN PRN Reason: CONSTIPATION Stop: 06/20/19 16:44 Glucagon (Glucagen) 1 mg SQ UD PRN; Protocol PRN Reason: Hypoglycemia Protocol Stop: 06/20/19 16:38 Glucose (Glucose 40%) 15 - 30 gm PO UD PRN; Protocol PRN Reason: Hypoglycemia Protocol Stop: 06/20/19 16:38 Glucose (Dex4 Glucose) 4 - 8 tabs PO UD PRN; Protocol PRN Reason: Hypoglycemia Protocol Stop: 06/20/19 16:38 Ceftriaxone Sodium 2,000 mg/ (Dextrose) 70 mls @ 140 mls/hr IV Q24H JAMES; Protocol Stop: 05/22/19 17:29 Last Infusion: 05/21/19 20:43 Dose: Infused Documented by: Sodium Chloride (Nss 1000ml) 1,000 mls @ 0 mls/hr IV .Q0M PRN PRN Reason: For Hemodialysis Use ONLY Stop: 05/22/19 12:55 Insulin Aspart (Novolog Flexpen) 0 units SC ACHS JAMES Stop: 06/20/19 16:38 Last Admin: 05/22/19 07:48 Dose: 4 units Documented by: Metoprolol Succinate (Toprol Xl) 50 mg PO DAILY [facility] Stop: 06/21/19 08:59 Miscellaneous (Carbohydrates For Hypoglycemia) 15 - 30 gm PO UD PRN PRN Reason: Hypoglycemia Treatment Stop: 06/20/19 16:38 Ondansetron HCl (Zofran) 4 mg IV Q6H PRN PRN Reason: Nausea Stop: 06/20/19 16:38 Pantoprazole Sodium (Protonix) 40 mg PO DAILY [facility]; Protocol Stop: 06/21/19 08:59 Last Admin: 05/22/19 08:56 Dose: 40 mg Documented by: Prednisone (Prednisone) 5 mg PO DAILY [facility] Stop: 06/21/19 08:59 Last Admin: 05/22/19 08:56 Dose: 5 mg Documented by: Sevelamer HCl (Renagel) 800 mg PO TIDM [facility] Stop: 06/20/19 16:59 Last Admin: 05/22/19 07:49 Dose: 800 mg Documented by: Vitamin B Complex (Vitamin B Complex) 1 tab PO DAILY [facility]AMES Stop: 06/21/19 08:59 Last Admin: 05/22/19 08:56 Dose: 1 tab Documented by: Vitamin B Complex/Folic Acid (Nephrocaps) 1 cap PO DAILY [facility] Stop: 06/21/19 08:59 Last Admin: 05/22/19 08:57 Dose: 1 cap Documented by: Vitamin D (Vitamin D3) 1,000 units PO DAILY [facility] Stop: 06/21/19 08:59 Last Admin: 05/22/19 08:56 Dose: 1,000 units Documented by:
[2019-05-22] MEDS: HEPARIN SOD (PORCINE) 1000 UNIT/ML 10 ML VIAL IV SCH ×3 (11:10→13:05)
[2019-05-22] MEDS ORDERED: WARFARIN SOD 2.5 MG TAB PO SCH (16:00)
--- NOTE | 2019-05-22 16:24 | Nephrology Progress Note ---
Date of Service May 22, 2019 Assessment & Plan (1) ESRD (end stage renal disease) on dialysis: had routine hd today uneventful except for ongoing asymptomatic tachycardia -tolerated 2.5L off yesterday and today both -next HD on 05/24 or as clinical status dictates (2) Hyperkalemia: resolved w/ HD Present on Admission?: Yes (3) Volume overload: as aggressive uf as tolerated- improving Present on Admission?: Yes (4) Weakness: likely multifactorial; per primary service; improving Present on Admission?: Yes (5) Back pain: low threshold to repeat blood cxs - so far NGTD; imaging negative for acute process Subjective seen on rounds this am 0840; looks much improved; states he feels great, ready for d/c. no sob; weakness improved; edema still significant but better, no n/v; back pain controlled Review of Systems Review of Systems: All systems reviewed & are unremarkable except as noted in HPI & below Physical Exam Constitutional: well developed and well nourished; no acute distress sitting on side of bed on RA Eyes: EOM intact bilaterally ENMT: Ears: no external ear abnormality Nose: no external nose abnormality Mouth: + dry oral mucous membranes Neck: no nuchal rigidity Respiratory: normal respiratory effort Auscultation: + diminished lung sounds and + crackles (bibasilar) Cardiovascular: Rate/Rhythm: + tachycardic and + irregularly irregular Extremities: + edema (3+ pedal/ 2+ pretibial R>L) and + AV fistula Gastrointestinal (Abdomen): Inspection/Auscultation: normal bowel sounds Percussion/Palpation: abdomen soft; abdomen nontender Musculoskeletal: Extremities: strength 5/5 throughout Skin: no rashes, warm and dry Neurologic: uribe, fluent speech, no tremor Psychiatric: A+Ox3, euthymic affect Results & Data Vital Signs (Past 12 Hours) Vital Signs Temp Pulse Pulse Resp BP BP BP 05/22/19 15:35 36.6 C 122 H 18 125/72 05/22/19 15:19 124 H 05/22/19 15:16 05/22/19 14:35 36.5 C 116 H 131/65 05/22/19 14:00 122 H 115/65 05/22/19 13:40 120 H 124/80 05/22/19 13:20 120 H 121/66 05/22/19 13:00 120 H 136/71 05/22/19 12:40 120 H 135/73 05/22/19 12:20 120 H 140/78 05/22/19 12:00 115 H 142/78 H 05/22/19 11:40 120 H 155/76 H 05/22/19 11:20 121 H 123/75 05/22/19 11:00 76 133/99 05/22/19 10:40 71 125/69 05/22/19 10:20 80 101/70 05/22/19 10:13 75 118/85 05/22/19 10:03 36.4 C L 61 05/22/19 07:22 119 H 05/22/19 07:06 36.6 C 119 H 18 178/81 H Pulse Ox 05/22/19 15:35 94 05/22/19 15:19 05/22/19 15:16 95 05/22/19 14:35 05/22/19 14:00 05/22/19 13:40 05/22/19 13:20 05/22/19 13:00 05/22/19 12:40 05/22/19 12:20 05/22/19 12:00 05/22/19 11:40 05/22/19 11:20 05/22/19 11:00 05/22/19 10:40 05/22/19 10:20 05/22/19 10:13 05/22/19 10:03 05/22/19 07:22 05/22/19 07:06 96 Laboratory Results Abnormal lab results 05/21/19 05/21/19 05/21/19 Range/Units 17:50 20:42 21:01 RBC (4.7-6.1) M/uL Hgb (14.0-18.0) g/dL Hct (42-52) % MCV (80-100) fL MCH (25-34) pg RDW Std Deviation (36.4-46.3) fL RDW Coeff of Elvia (11.5-14.5) % MPV (7.4-10.4) fL PT (9.0-12.0) Seconds INR (0.9-1.1) Sodium 134 L (136-145) mmol/L Chloride 91 L (98-107) mmol/L Anion Gap 12.0 H (3-11) BUN 38 H D (7-18) mg/dl Creatinine 5.49 H* D (0.6-1.4) mg/dl BUN/Creatinine Ratio 6.9 L (10-20) Glucose 171 H (70-99) mg/dl POC Glucose 101 H 134 H (70-99) Calcium 8.4 L (8.5-10.1) mg/dl Phosphorus (2.5-4.9) mg/dl Urine Appearance (Clear) Urine Protein (Negative) Urine Glucose (UA) (Negative) Urine Blood (Negative) Ur Leukocyte Esterase (Negative) Urine WBC (Auto) (0-5) /hpf Urine RBC (Auto) (0-4) /hpf U Epithel Cells (Auto) (0-5) /lpf 05/22/19 05/22/19 05/22/19 Range/Units 05:29 05:29 05:29 RBC 2.51 L (4.7-6.1) M/uL Hgb 9.0 L (14.0-18.0) g/dL Hct 28.1 L (42-52) % MCV 112.0 H (80-100) fL MCH 35.9 H (25-34) pg RDW Std Deviation 65.6 H (36.4-46.3) fL RDW Coeff of Elvia 16.4 H (11.5-14.5) % MPV 11.8 H (7.4-10.4) fL PT 20.3 H (9.0-12.0) Seconds INR 2.1 H (0.9-1.1) Sodium 134 L (136-145) mmol/L Chloride 93 L (98-107) mmol/L Anion Gap (3-11) BUN 47 H (7-18) mg/dl Creatinine 6.41 H* D (0.6-1.4) mg/dl BUN/Creatinine Ratio 7.3 L (10-20) Glucose 133 H (70-99) mg/dl POC Glucose (70-99) Calcium 7.8 L (8.5-10.1) mg/dl Phosphorus 5.2 H D (2.5-4.9) mg/dl Urine Appearance (Clear) Urine Protein (Negative) Urine Glucose (UA) (Negative) Urine Blood (Negative) Ur Leukocyte Esterase (Negative) Urine WBC (Auto) (0-5) /hpf Urine RBC (Auto) (0-4) /hpf U Epithel Cells (Auto) (0-5) /lpf 05/22/19 05/22/19 Range/Units 05:30 07:16 RBC (4.7-6.1) M/uL Hgb (14.0-18.0) g/dL Hct (42-52) % MCV (80-100) fL MCH (25-34) pg RDW Std Deviation (36.4-46.3) fL RDW Coeff of Elvia (11.5-14.5) % MPV (7.4-10.4) fL PT (9.0-12.0) Seconds INR (0.9-1.1) Sodium (136-145) mmol/L Chloride (98-107) mmol/L Anion Gap (3-11) BUN (7-18) mg/dl Creatinine (0.6-1.4) mg/dl BUN/Creatinine Ratio (10-20) Glucose (70-99) mg/dl POC Glucose 121 H (70-99) Calcium (8.5-10.1) mg/dl Phosphorus (2.5-4.9) mg/dl Urine Appearance Turbid A (Clear) Urine Protein 2+ H (Negative) Urine Glucose (UA) Trace H (Negative) Urine Blood 2+ H (Negative) Ur Leukocyte Esterase 3+ H (Negative) Urine WBC (Auto) >30 H (0-5) /hpf Urine RBC (Auto) 5-10 H (0-4) /hpf U Epithel Cells (Auto) >30 H (0-5) /lpf (1) Volume overload Hypervolemia type: unspecified Qualified Code(s): E87.70 - Fluid overload, unspecified (2) Back pain Back pain laterality: midline Back pain location: low back pain Chronicity: acute Sciatica presence: without sciatica Qualified Code(s): M54.5 - Low back pain
[2019-05-22] MEDS: cefTRIAXone SODIUM 2,000 MG in DEXTROSE 5% 50 ML IV SCH (16:52)
--- NOTE | 2019-05-23 08:03 | Discharge Summary ---
Date of Service May 23, 2019 Admission HPI Per Admitting Provider This is a 84-year-old male who has a significant past medical history of ESRD on HD T//, T2DM, chronic right-sided CHF, HTN, HLD, nonobstructive CAD, history of bioprosthetic AVR, silica pneumoconiosis, chronic thrombocytopenia, paroxysmal atrial flutter, history of PE on chronic warfarin therapy, history of carotid artery stenosis status post right CEA who presents to [facility] ED secondary to weakness and missed HD x 1 day. Of significance patient with multiple recent hospital admissions 03/18- 2/2 chest pain, felt likely to be GI etiology. Echocardiogram performed at that time revealed bioprosthetic aortic valve, moderate concentric left ventricular hypertrophy, EF 60 to 65%, grade 1 diastolic dysfunction, elevated right ventricular systolic function 40 to 50 mmHg. 04/17-04/20 2/2 Sepsis, HAP 05/01-05/07 2/2 Acute hypoxic resp failure due to pulm congestion due to missed HD and Left chest pain. [place] MSK in origin. Concern for possibly polymyalgia rheumatic. Started on prednisone 20mg daily b/c of this. Further w/u revealed Gram + bacteremia MSSA, unknown source, echo w/o vegetation. Repeat blood culture negative. Seen by ID. Placed on Rocephin 2g daily until 05/22/1905/09-05/13 2/2 L sided chest pain, Back Pain, abd pain and diarrhea. Chest pain felt to be atypical, like MSK etiology. Trop negative x 3 w/o ecg change. He presents today with weakness, inability to ambulate, increased lower extremity swelling x 1 day. Pt was to have HD yesterday but was too weak; therefore cancelled. Was again to go today, but felt too weak so opted to seek ED for further evaluation. He denies any fevers but admits to feeling chills. Denies dizziness, lightheaded, chest pain, sob, cough, hemoptysis, n/v/abd pain. Denies change in diet or increase in fluid intake. He has been having intermittent diarrhea, which family feels is associated with initiation of IV antibiotics, last BM was this morning. Has chronic low back pain which he has dealt with for years. States his RLE has always been weaker due to prior orthopedic surgery but feels more pronounced. Lives at home with but has been having increased difficulty with ambulation. Overall decreased appetite. Admission Exam Per Admitting Provider Physical Exam: Constitutional: Elderly, chronically ill appearing, M, WD/WN, vitals as above, NAD, sitting up in bed, pleasant, conversing easily Head: Normocephalic, Atraumatic Eyes: PERRL, conjunctivae normal, anicteric sclerae ENMT: external ear and nose normal, oropharynx normal Neck: trachea midline, no thyromegaly normal visual inspection Respiratory: normal respiratory effort, lungs clear to auscultation, no wheeze, rales, rhonchi. Normal insp/exp effort, no accessory muscle use Cardiovascular: IRR/IRR, no murmur, +AVR auscultated, +3 b/l lower ext edema with venous stasis changes. No JVD or carotid bruit Chest: normal inspection of chest Abdomen: obese but soft abd, normal bowel sounds, soft, nontender, no hepatosplenomegaly Musculoskeletal: no cyanosis or clubbing, extremities motor strength 5/5 UPPER ext, RLE 3/5, LLE 5/5 Skin: no rashes, warm and dry normal turgor Neurologic: PERRL, EOMI, accommodation nl, no face palsy, no dysarthria CN's II-XI intact bilaterally and moves all extremities Psychiatric: A+Ox3, euthymic affect Lymphatic: no cervical or axillary lymphadenopathy : deferred Principal Diagnosis Weakness with a fall without significant, fluid overload as he missed dialysis, end-stage renal disease on hemodialysis, atrial flutter on anticoagulant Discharge Exam Constitutional well developed and well nourished; no acute distress and not ill appearing Eyes PERRL, conjunctivae normal, anicteric sclerae ENMT external ear and nose normal, oropharynx normal Mouth: + dry oral mucous membranes Neck trachea midline, no thyromegaly no nuchal rigidity Respiratory normal respiratory effort Auscultation: lungs clear to auscultation bilaterally, + diminished lung sounds and + crackles (Minimally bilateral with more on the right side) Cardiovascular Rate/Rhythm: regular rate, + tachycardic and + irregularly irregular Extremities: + edema (1-2+ edema bilateral) and + AV fistula Gastrointestinal (Abdomen) Inspection/Auscultation: normal bowel sounds Percussion/Palpation: abdomen soft; abdomen nontender Skin no rashes, warm and dry Neurologic moves all extremities; no focal motor deficits Psychiatric A+Ox3, euthymic affect Lymphatic no cervical or axillary lymphadenopathy Discharge Data Allergies Allergy/AdvReac Type Severity Reaction Status Date / Time aspirin Allergy Unknown . Verified 05/21/19 10:48 salicylates Allergy Unknown UNKNOWN Verified 05/21/19 10:48 Consultations 05/21/19 12:24 ED Decision to Admit Stat 05/21/19 12:56 Consult Nephrology Routine 05/21/19 16:39 Consult Case Management - Discharge Planning Routine Hospital Course (1) Missed dialysis: This is a 84-year-old male who has a significant past medical history of ESRD on HD T//, T2DM, chronic right-sided CHF, HTN, HLD, nonobstructive CAD, history of bioprosthetic AVR, silica pneumoconiosis, chronic thrombocytopenia, paroxysmal atrial flutter, history of PE on chronic warfarin therapy, history of carotid artery stenosis status post right CEA who presents to [facility] ED secondary to weakness and missed HD x 1 day. Could not make to the dialysis center due to weakness and apparent fall More pain at the back initially Pain is much better this morning As a dialysis last night and will have dialysis this morning (2) Tachycardia: Noted to have tachycardia at baseline around 110s Has been on Toprol-XL 50 mg after dialysis Talk to the daughter and will advise to take the medications after dialysis every time (3) Weakness: Chronic problem Better at this morning We will get PT and OT evaluation (4) Ambulatory dysfunction: Secondary to multiple comorbid conditions He does well with PT and OT will be sent home this afternoon (5) End-stage renal disease (ESRD): (6) Hyperkalemia: k 6.1 received calcium gluconate 2,000mg and Regular Insulin 10units repeat K at 4pm along with ecg will need HD Potassium is 4.6 today (7) Gram-positive cocci in clusters: recent gram + MSSA bacteremia, no evident source identified to complete 2g rocephin dialy on 05/22 repeat blood cultures to ensure negative Will have last dose of intravenous ceftriaxone today DC PICC line following that dose of antibiotic (8) 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: cbc pending baseline hgb ~10 (9) Atrial flutter: hx of ablation now in chronic afib on metoprolol for rate control coumadin for anticoag INR remains therapeutic at 2.1 (10) Type 2 diabetes mellitus: A1C 7.3 on 05/10 not on any oral agents approp control given age and comorbidities hyperglycemic in ED likely in setting of recent prednisone use Novolog insulin per protocol (11) HTN (hypertension): pt hypertensive in ED likely in setting of missed HD continue metoprolol, tx SBP >180 or DBP >100 (12) Thrombocytopenia: hx of chronic low plt-lowest noted at 129 on the sixth of this month Platelet count is normal at 182 (13) 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 Craig upon discharge Total Time Total Time Spent Total Time Spent (In Minutes): 40 minutes Total Time Includes: Examination of the Patient, Discharge Planning, Medication Reconciliation and Communication With Other Providers Discharge Plan Discharge Items Patient Disposition: Home - Self-Care Reason For Visit: WEAKNESS,ESRD Discharge Diagnosis: Weakness with a fall without significant, fluid overload as he missed dialysis, end-stage renal disease on hemodialysis, atrial flutter on anticoagulant Condition: Fair Discharge Goals: Decrease discomfort, Improve function and Increase independence Activity: Resume your previous activity Non-emergency contact: Primary Care Provider Call non-emergency contact if: you have any medication questions and your symptoms worsen Follow-up/Referrals: Zach Gooden MD [Primary Care Provider] - 05/27/19 11:05 am (Please keep follow-up appointment with coagulation clinic) Diet: Carb Consistent or DM2 and Heart Healthy Fluids: 1500ml (6 cups) Addtl Provider Instructions: Please take precaution to avoid falls. Finished his course of intravenous antibiotic PICC line was taken out today Prescriptions: Continued prednisone 10 mg Tablet 10 mg PO DAILY 30 Days Qty: 30 RF: 0 metoprolol succinate 50 mg Tablet Extended Release 24 Hr 50 mg PO DAILY RF: 0 omega [id number] oil [Fish Oil] 1,000 mg (120 mg-180 mg) Capsule 1 cap PO DAILY RF: 0 acetaminophen [Tylenol Extra Strength] 500 mg Tablet 500 mg PO Q6H PRN (Reason: Pain) RF: 0 omeprazole 20 mg capsule,delayed release(DR/EC) 20 mg PO DAILY RF: 0 cholecalciferol (vitamin D3) [Vitamin D3] 1,000 unit Capsule 1,000 unit PO DAILY RF: 0 warfarin [Coumadin] 5 mg tablet 2.5 mg PO DAILY RF: 0 Sherley-Neeraj 0.8 mg tablet 1 tab PO DAILY RF: 0 fluticasone propionate [Flonase Allergy Relief] 50 mcg/actuation [place],Suspension 1 spray INTRANASAL DAILY PRN (Reason: Nasal Congestion) RF: 0 docusate sodium 100 mg Tablet 100 mg PO BID PRN (Reason: Constipation) RF: 0 vitamin B complex Tablet 1 tab PO DAILY RF: 0 sevelamer carbonate 800 mg tablet 800 mg PO TIDM RF: 0 Discontinued ceftriaxone 2 gram Recon Soln 2 g IV DAILY RF: 0 Stand-Alone Forms: [facility]/Other Patient Handouts: AFL/Afib, Disase Kidney Fluids, Disease Kidney Limit Fluids, Stroke Prevent Live W Atrial Fib Discharge Orders: Discharge Order (Routine); Ordered 05/22/19 Ordered By: Gerard Lancaster Admission Data Admit Date/Time: 05/21/19 13:18 Attending Provider: Gerard Lancaster Admit Provider: Chet Barnes Primary Care Provider: Zach Gooden Other Providers: Ashly Myrick ; Chet Barnes Service: Telemetry Other Interventions: Discharge Summary Assessment (RN) Last Done: 05/22/19 17:17 DC Date/Time DO NOT enter until pt leaves facility: 05/22/19 17:47
== END 2019-05-22 17:47 | disposition home health service (06) | DRG 640 ==
LOC: ED 10:10 → 2S 13:18

== ENCOUNTER 2019-10-06 03:56 | Inpatient (IN) ==
[2019-10-06] MEDS ORDERED: ONDANSETRON INJ 2 MG/ML 2 ML VIAL IV STA (04:09)
[2019-10-06] MEDS ORDERED: SODIUM CHLORIDE 0.9% 500 ML IV SCH (04:15)
[2019-10-06 04:48] LABS: Albumin Globulin Ratio 0.5 (0.9-2); Albumin Level 2.7 gm/dl (3.4-5.0); Bilirubin,Total 0.4 mg/dl (0.2-1); Calcium 8.2 mg/dl (8.5-10.1); Creatinine Clr Calc Pharmacy 9.6 ml/min; Est GFR (African American) 8.3; Est GFR (Non-African American) 7.1; Globulin 5.1 gm/dl (2.5-4.0); Total Protein 7.8 gm/dl (6.4-8.2); Troponin I 0.022 ng/ml (0-0.045)
[2019-10-06 04:49] LABS: Basophils # (auto) 0.02 K/uL (0-0.2); Basophils % (auto) 0.1 %; Hematocrit (blood only) 28.2 % (42-52); Hemoglobin 8.8 g/dL (14.0-18.0); Immature Granulocytes # (auto) 0.15 K/uL (0.00-0.02); Immature Granulocytes % (auto) 0.5 %; Lymphocytes # (auto) 0.59 K/uL (1.2-3.4); Lymphocytes % (auto) 2.1 %; Macrocytosis Present; Mean Corpuscular Hemoglobin 35.9 pg (25-34); Mean Corpuscular Hgb Conc 31.2 g/dL (32-36); Mean Corpuscular Volume 115.1 fL (80-100); Mean Platelet Volume 12.1 fL (7.4-10.4); Monocytes # (auto) 1.32 K/uL (0.11-0.59); Monocytes % (auto) 4.7 %; Neutrophils # (auto) 25.94 K/uL (1.4-6.5); Neutrophils % (auto) 92.6 %; Platelet Count 122 K/uL (130-400); Platelet Estimate Decreased (Normal); RDW Coefficient of Variation 16.9 % (11.5-14.5); RDW Standard Deviation 70.5 fL (36.4-46.3); Red Blood Count 2.45 M/uL (4.7-6.1); White Blood Count 28.02 K/uL (4.8-10.8)
[2019-10-06] MEDS ORDERED: IOVERSOL 100ml IV PRN (05:09)
[2019-10-06] MEDS ORDERED: PIPERACILLIN/TAZOBACTAM 4.5 GM/120 ML BAG IV ONE (06:05)
[2019-10-06] MEDS ORDERED: PIPERACILL/TAZOBAC CONSULT ACTIVE PRN ×2 (06:05→16:19)
[2019-10-06] MEDS ORDERED: LEVOFLOXACIN/D5W 750 MG/150 ML BAG IV STA (06:06)
[2019-10-06] MEDS ORDERED: SODIUM CHLORIDE 0.9% 500 ML IV ONE (06:13)
--- NOTE | 2019-10-06 06:46 | CT Scan Report ---
CT abd pelvis IV con only CT DOSE: 715.85 mGy.cm CLINICAL HISTORY: Abdominal pain TECHNIQUE: The patient was scanned in a dynamic helical fashion during intravenous administration of 92 cc of Optiray 320. A dose lowering technique was utilized adhering to the principles of ALARA. COMPARISON STUDY: May 09, 2019 FINDINGS: Visualized portions of the lung bases reveal subpleural nodularity and fibrotic changes similar to th e prior study. There is suspected mild right hilar adenopathy. No focal hepatic masses are visualized. There is no ductal dilatation. The portal vein and hepatic ve ins appear patent. There are layering gallstones. No splenic masses are visualized. No pancreatic masses are visualized. No adrenal masses are visualized. There is bilateral perinephric stranding. There are extensive renal vascular calcifications. There is 33 mm right renal cyst. There are no transition zones indicate bowel obstruction. There is no evidence of acute diverticuliti s. The appendix appears normal. There is no evidence of abdominal aortic aneurysm. There are diffuse atheromatous calcifications pres ent. There is an indwelling IVC filter. Several struts protruding beyond the IVC lumen, a finding unc hanged from the preceding study. There is no pathologic adenopathy. There is no free air. There is no ascites. There are no pathologic pelvic masses. There is right psoas atrophy. There are postsurgical changes of a total right hip arthroplasty. IMPRESSION: 1. Cholelithiasis 2. No evidence of bowel obstruction. No evidence of free air. 3. No evidence of acute appendicitis. No evidence of acute diverticulitis. 4. Partially visualized enlarged right hilar lymph node ACT 112: Negative or not required by law. Electronically signed by: Justice Gutierres M.D. 10/06/2019 6:44 AM
--- NOTE | 2019-10-06 06:56 | History & Physical Report ---
Date of Service October 06, 2019 Assessment & Plan (1) Sepsis: Sources : C. 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 INR supratherapeutic chronic right-sided heart failure as per records (EF 60-65%, TTE 2019), patient on the dry side hx non-occlusive CAD hx bioprosthetic AVR carotid artery disease status post surgery HTN, BP on the lower side ESRD on HD DM2, diet-controlled, reasonable control as of recent hemoglobin A1c of 7.03 May 2019 chronic anemia, hemoglobin at baseline Med telemetry given borderline BP Careful IV hydration Follow lactic acid Clear liquids for now, oral vancomycin, IV Flagyl given fulminant colitis Zosyn for H CAP, probable aspiration Vitamin K to reverse coagulopathy given LGIB, borderline BP Trend H&H, transfuse PRBC if hemoglobin less than 8 and/or for symptomatic anemia Appropriate to hold home beta-laquita for now given borderline BP Nephrology consult RE dialysis management Basal insulin, ISS BG goal [id number], carb count coverage DVT prophylaxis. SCDs if INR less than 2 while Coumadin on hold RE L GIB Full code History of Present Illness Primary Care Provider: Zach Gooden MD History obtained from patient and records. 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 1 week history of nausea, vomiting, bloody diarrhea symptoms with some abdominal discomfort as per patient. No chest pain, no S OB. Subsequent junky cough symptoms as per patient. No fever, no chills. Hemodialysis cut short 2 days ago as per patient because he was not feeling very well. At the ER, patient received Levaquin and Zosyn for sepsis. 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 Verified 10/06/19 04:33 salicylates Allergy Unknown UNKNOWN Verified 10/06/19 04:33 Home Medications Home Medications Medication Instructions Recorded Confirmed Type acetaminophen [Tylenol Extra 500 mg PO Q6H PRN 06/14/18 10/06/19 History Strength] cholecalciferol (vitamin D3) 1,000 unit PO DAILY 06/14/18 10/06/19 History [Vitamin D3] omeprazole 20 mg PO DAILY 06/14/18 10/06/19 History Sherley-Neeraj 1 tab PO DAILY 03/18/19 10/06/19 History docusate sodium 100 mg PO BID PRN 03/18/19 10/06/19 History fluticasone propionate [Flonase 1 spray INTRANASAL DAILY PRN 03/18/19 10/06/19 History Allergy Relief] sevelamer carbonate 800 mg PO BIDM 03/18/19 10/06/19 History warfarin [Coumadin] 2.5 mg PO DAILY 03/18/19 10/06/19 History metoprolol succinate 50 mg PO DAILY 05/21/19 10/06/19 History omega [id number]-[id number]-fish oil [Fish Oil] 1 cap PO DAILY 05/21/19 10/06/19 History metoprolol tartrate 12.5 mg PO 3XWK 10/06/19 10/06/19 History Past Med/Surg History Social History Preferred Language: Danish Communication Ability: Effective Visual Impairment: Partially Limited Supervisor [employer] Required: Yes Beliefs That Will Affect Care: None marital status: Current Living Situation: Spouse Current Living Situation Comment: lives with Vannesa and six dogs in three [place]. Feels Safe at Home: Yes Smoking Status: Never smoker Second Hand Exposure: No ; Hx Alcohol Use: No Hx Substance Use: No Review of Systems Review of Systems: As per HPI, all 10 systems reviewed, all other ROS negative Physical Exam Physical Exam: GENERAL: Comfortable, pleasant, no respiratory distress, obese SKIN: Sallow , warm HEENT: Alopecia, pale palpebral conjunctivae, no ptosis, dry buccal mucosa NECK : Supple, short, no tenderness CHEST : Decreased breath sounds, no chest wall tenderness HEART : RRR, systolic murmur ABDOMEN: Some distention, nontender EXTREMITIES : Minimal LE swelling, no LE tenderness, no other conspicuous deformities noted NEUROLOGIC : Coherent, no facial asymmetry, no other gross focality Results & Data Vital Signs (Past 12 Hours) Vital Signs Temp Pulse Pulse Resp BP BP Pulse Ox 10/06/19 06:13 72 12 110/60 98 10/06/19 05:15 72 18 97/62 L 96 10/06/19 04:23 74 21 96 10/06/19 04:01 37.3 C 74 18 92/59 L 97 Laboratory Results Laboratory Results WBC 28.02 K/uL (4.8-10.8) H 10/06/19 04:11 RBC 2.45 M/uL (4.7-6.1) L 10/06/19 04:11 Hgb 8.8 g/dL (14.0-18.0) L 10/06/19 04:11 Hct 28.2 % (42-52) L 10/06/19 04:11 MCV 115.1 fL (80-100) H 10/06/19 04:11 MCH 35.9 pg (25-34) H 10/06/19 04:11 MCHC 31.2 g/dL (32-36) L 10/06/19 04:11 RDW Std Deviation 70.5 fL (36.4-46.3) H 10/06/19 04:11 RDW Coeff of Elvia 16.9 % (11.5-14.5) H 10/06/19 04:11 Plt Count 122 K/uL (130-400) L 10/06/19 04:11 MPV 12.1 fL (7.4-10.4) H 10/06/19 04:11 Immature Gran % (Auto) 0.5 % 10/06/19 04:11 Neut % (Auto) 92.6 % 10/06/19 04:11 Lymph % (Auto) 2.1 % 10/06/19 04:11 [place] % (Auto) 4.7 % 10/06/19 04:11 Eos % (Auto) 0.0 % 10/06/19 04:11 Baso % (Auto) 0.1 % 10/06/19 04:11 Immature Gran # (Auto) 0.15 K/uL (0.00-0.02) H 10/06/19 04:11 Neut # (Auto) 25.94 K/uL (1.4-6.5) H 10/06/19 04:11 Lymph # (Auto) 0.59 K/uL (1.2-3.4) L 10/06/19 04:11 [place] # (Auto) 1.32 K/uL (0.11-0.59) H 10/06/19 04:11 Eos # (Auto) 0.00 K/uL (0-0.5) 10/06/19 04:11 Baso # (Auto) 0.02 K/uL (0-0.2) 10/06/19 04:11 Platelet Estimate Decreased (Normal) L 10/06/19 04:11 Macrocytosis Present 10/06/19 04:11 Sodium 134 mmol/L (136-145) L 10/06/19 04:11 Potassium 5.0 mmol/L (3.5-5.1) 10/06/19 04:11 Chloride 100 mmol/L (98-107) 10/06/19 04:11 Carbon Dioxide 25 mmol/L (21-32) 10/06/19 04:11 Anion Gap 9.0 (3-11) 10/06/19 04:11 BUN 52 mg/dl (7-18) H 10/06/19 04:11 Creatinine 6.52 mg/dl (0.6-1.4) H* 10/06/19 04:11 Est Cr Clr Drug Dosing 9.6 ml/min 10/06/19 04:11 Est GFR ( Amer) 8.3 10/06/19 04:11 Est GFR (Non-Af Amer) 7.1 10/06/19 04:11 BUN/Creatinine Ratio 8.0 (10-20) L 10/06/19 04:11 Glucose 220 mg/dl (70-99) H 10/06/19 04:11 Calcium 8.2 mg/dl (8.5-10.1) L 10/06/19 04:11 Magnesium Cancelled 10/06/19 04:11 Total Bilirubin 0.4 mg/dl (0.2-1) 10/06/19 04:11 AST 16 U/L (15-37) 10/06/19 04:11 ALT 17 U/L (12-78) 10/06/19 04:11 Alkaline Phosphatase 117 U/L (45-117) 10/06/19 04:11 Troponin I 0.022 ng/ml (0-0.045) 10/06/19 04:11 Total Protein 7.8 gm/dl (6.4-8.2) 10/06/19 04:11 Albumin 2.7 gm/dl (3.4-5.0) L 10/06/19 04:11 Globulin 5.1 gm/dl (2.5-4.0) H 10/06/19 04:11 Albumin/Globulin Ratio 0.5 (0.9-2) L 10/06/19 04:11 Lipase 217 U/L (73-393) 10/06/19 04:11 TSH Cancelled 10/06/19 04:[address] abdomen pelvis initial read: Cirrhosis, cholelithiasis without gallbladder distention/thickening. Atherosclerosis. Right middle lobe opacity. Chest x-ray as per my interpretation atelectasis, right pleural effusion EKG as per my interpretation : Rate 70, NSR, normal axis, T wave flattening septal leads
[2019-10-06 07:01] LABS: Magnesium 1.7 mg/dl (1.8-2.4); Thyroid Stimulating Hormone 1.53 uIu/ml (0.300-4.500)
--- NOTE | 2019-10-06 07:06 | XRay Report ---
XR chest 1V portable CLINICAL HISTORY: Shortness of breath. COMPARISON STUDY: Chest CT May 10, 2019. Chest radiograph May 22, 2019. FINDINGS: Reticulonodular interstitial thickening is unchanged. There is a trace right pleural effusi on. Note is made of median sternotomy wires and a prosthetic heart valve. The heart is mildly enlarge d. There is no consolidation to suggest pneumonia. Right hilar prominence is unchanged. IMPRESSION: 1. No change in reticulonodular interstitial thickening which is likely chronic. 2. Trace pleural effusion. 3. No consolidation to suggest pneumonia. ACT 112: Negative or not required by law. Electronically signed by: John Emanuel M.D. 10/06/2019 7:05 AM
[2019-10-06 07:07] LABS: INR 3.5 (0.9-1.1); Partial Thromboplastin Ratio 1.9
[2019-10-06] MEDS ORDERED: SODIUM CHLORIDE 0.9% 1000ML 1,000 ML IV ONE ×2 (07:11→19:00)
[2019-10-06 07:14] LABS: Partial Thromboplastin Time 50.7 Seconds (21.0-31.0)
[2019-10-06] MEDS ORDERED: metroNIDAZOLE 500 MG/100 ML BAG IV STA (07:28)
--- NOTE | 2019-10-06 07:29 | Emergency Department Note ---
Entered by Viraj Prado acting as a scribe for History of Present Illness General Chief complaint: Nausea Stated complaint: nausea/vomiting Time Seen by Provider: 10/06/19 03:58 Source: patient History of Present Illness Onset (ago): week(s) (a week and a half ago) Location: abdomen Pain Consistency: + intermittent Quality: + other (nausea and vomiting) Associated symptoms: + other (Positive for abdominal pain and diarrhea. Negative for fever, chills, and SOB.) The patient is an 84 year old male who presents to the emergency department with complaints of intermittent nausea and vomiting for the last week and a half. The patient states that he has been feeling sick for the last week and a half. He notes that he has been intermittently nauseous and he reports that he has had multiple episodes of vomiting. The patient states that he woke up this morning feeling worse, prompting his visit to the emergency department. He also complains of abdominal pain and diarrhea. The family explains that the stools have been bloody. He denies any fever, chills, and SOB. Home Medications Home Medications Medication Instructions Recorded Confirmed Type acetaminophen [Tylenol Extra 500 mg PO Q6H PRN 06/14/18 10/06/19 History Strength] cholecalciferol (vitamin D3) 1,000 unit PO DAILY 06/14/18 10/06/19 History [Vitamin D3] omeprazole 20 mg PO DAILY 06/14/18 10/06/19 History Sherley-Neeraj 1 tab PO DAILY 03/18/19 10/06/19 History docusate sodium 100 mg PO BID PRN 03/18/19 10/06/19 History fluticasone propionate [Flonase 1 spray INTRANASAL DAILY PRN 03/18/19 10/06/19 History Allergy Relief] sevelamer carbonate 800 mg PO BIDM 03/18/19 10/06/19 History warfarin [Coumadin] 2.5 mg PO DAILY 03/18/19 10/06/19 History metoprolol succinate 50 mg PO DAILY 05/21/19 10/06/19 History omega 2-nzx-qud-fish oil [Fish Oil] 1 cap PO DAILY 05/21/19 10/06/19 History metoprolol tartrate 12.5 mg PO 3XWK 10/06/19 10/06/19 History Allergies Allergy/AdvReac Type Severity Reaction Status Date / Time aspirin Allergy Unknown . Verified 10/06/19 04:33 salicylates Allergy Unknown UNKNOWN Verified 10/06/19 04:33 Past Med/Surg History Social History Preferred Language: Indonesian Communication Ability: Effective Visual Impairment: Partially Limited Station Manager Required: Yes Beliefs That Will Affect Care: None marital status: Current Living Situation: Spouse Current Living Situation Comment: lives with Vannesa and six dogs in three story home. Feels Safe at Home: Yes Smoking Status: Never smoker Second Hand Exposure: No ; Hx Alcohol Use: No Hx Substance Use: No Review of Systems See HPI for pertinent positives & negatives. and A total of 10 systems reviewed and were otherwise negative Physical Exam Vital Signs Vital Signs - 24 hr 10/06/19 04:01 10/06/19 04:23 10/06/19 05:15 Temperature 37.3 C Temperature Source Oral Pulse Rate 74 74 Pulse Rate [Right Finger] 72 Pulse Rhythm Regular Regular Pulse Rhythm [Right Finger] Regular Pulse Strength Normal Pulse Strength [Right Finger] Normal Respiratory Rate 18 21 18 Respiratory Effort / Characteristics Non-Labored Spontaneous Non-Labored Respiratory Depth Normal Normal Respiratory Pattern Regular Regular Blood Pressure 92/59 L Blood Pressure [Right Arm] 97/62 L Blood Pressure Mean 70 Blood Pressure Mean [Right Arm] 73 Blood Pressure Position Lying Blood Pressure Position [Right Arm] Lying Pulse Oximetry 97 96 96 Oxygen Delivery Method Room Air Room Air Room Air Sepsis Recent Fever Within 48 Hours No Sepsis New/Unexplained Change in Mental Status No Sepsis Action Taken by Nursing No Action Required 10/06/19 06:13 10/06/19 07:03 Temperature Temperature Source Pulse Rate Pulse Rate [Right Finger] 72 72 Pulse Rhythm Pulse Rhythm [Right Finger] Regular Pulse Strength Pulse Strength [Right Finger] Normal Respiratory Rate 12 20 Respiratory Effort / Characteristics Non-Labored Spontaneous Non-Labored Spontaneous Respiratory Depth Normal Normal Respiratory Pattern Regular Blood Pressure Blood Pressure [Right Arm] 110/60 96/55 L Blood Pressure Mean Blood Pressure Mean [Right Arm] 76 68 Blood Pressure Position Blood Pressure Position [Right Arm] Lying Pulse Oximetry 98 98 Oxygen Delivery Method Room Air Room Air Sepsis Recent Fever Within 48 Hours Sepsis New/Unexplained Change in Mental Status Sepsis Action Taken by Nursing HEENT: Head - normocephalic and atraumatic Pupils are equal, round, and reactive to light. Extraocular eye muscles are intact, and sclera are anicteric. Nose - moist nasal mucosa without discharge. Mouth - moist buccal mucosa. Oropharynx is nonerythematous and there is no tonsillar exudate or edema noted. Neck: Supple; no JVD or cervical lymphadenopathy Heart: Regular rate and rhythm. There is a normal S1 and S2 with no murmurs, clicks, or gallops appreciated. Lungs: Clear to auscultation bilaterally with no wheezes, rales, or rhonchi. Abdomen: Soft, nondistended, with good bowel sounds. There are no palpable pulsatile masses or hepatosplenomegaly. There is no guarding, rigidity, or rebound noted. Tenderness in RLQ. Extremities: No evidence of cyanosis and clubbing. There are easily palpable peripheral pulses. 2+ pitting edema in legs. Skin: warm and dry with good turgor and no rashes. Course Course 0402: The patient was evaluated in room A10. A complete history and physical examination were performed. Nursing notes and previous electronic medical records were reviewed. IV lock was established and labs were drawn as above. 0426: Sodium Chloride 500 mls @ 999 mls/hr IV. The patient will go for CT scan of the abdomen/pelvis to evaluate the right lower quadrant abdominal pain. 0547: I reevaluated and updated the patient. He states that his nausea is better and that his headache is gone. He notes that he is not currently taking prednisone. The patient had a bloody bowel movement. The stool was diarrhea w ith bright red blood. 0611: Upon reevaluation, the patient is stable. I discussed the findings and the treatment plan with the patient. He expresses agreement and understanding. I spoke with Dr. Ortiz of the [facility]. The patient will be evaluated for further management. 0617: Piperacilin Sod/Tazobactam Sod 4.5 gm in 120 mls @ 240 mls/hr IV 0622: I rechecked the patient. His vitals are stable and he is comfortable at this time. Consultations Consultation #1: I [facility] the [facility] He will evaluate the patient for further management. Time: 06:11 Administered Medications Levofloxacin/Dextrose (Levaquin/D5w) 750 mg in 150 mls @ 100 mls/hr IV NOW STA Stop: 10/06/19 07:35 Last Admin: 10/06/19 07:17 Dose: 100 mls/hr Documented by: [id number] Sodium Chloride (Nss 1000ml) 1,000 mls @ 500 mls/hr IV .Q2H ONE Stop: 10/06/19 09:10 Last Admin: 10/06/19 07:17 Dose: 500 mls/hr Documented by: [id number] Ioversol (Optiray 320 100ml) 100 ml IV ONCE PRN PRN Reason: Interaction Checking Stop: 10/10/19 05:08 Last Admin: 10/06/19 05:09 Dose: 92 ml Documented by: [id number] Discontinued Medications Sodium Chloride (Nss) 500 mls @ 999 mls/hr IV .Q31M JAMES Stop: 10/06/19 04:45 Last Infusion: 10/06/19 05:46 Dose: 0 mls/hr Documented by: [id number] Admin: 10/06/19 04:26 Dose: 999 mls/hr Documented by: [id number] Piperacillin Sod/Tazobactam Sod (Zosyn) 4.5 gm in 120 mls @ 240 mls/hr IV NOW ONE Stop: 10/06/19 06:34 Last Infusion: 10/06/19 06:57 Dose: 0 mls/hr Documented by: [id number] Admin: 10/06/19 06:17 Dose: 240 mls/hr Documented by: [id number] Sodium Chloride (Nss) 500 mls @ 999 mls/hr IV .Q31M ONE Stop: 10/06/19 06:43 Last Infusion: 10/06/19 06:58 Dose: 0 mls/hr Documented by: [id number] Admin: 10/06/19 06:29 Dose: 999 mls/hr Documented by: [id number] Ondansetron HCl (Zofran) 4 mg IV NOW STA Stop: 10/06/19 04:10 Last Admin: 10/06/19 06:57 Dose: Not Given Documented by: [id number] Medical Decision Making Differential Diagnosis Differential diagnoses include: dehydration, gastroenteritis, C diff, and appendicitis. Medical Records Attestation: I reviewed the patient's medical records. Home Medications Current Medication List: was personally reviewed by me Laboratory Data Attestation: I reviewed the patient's lab results. Result diagrams: 10/06/19 04:11 10/06/19 04:11 Lab Results 10/06/19 10/06/19 10/06/19 Range/Units 04:11 04:11 04:11 WBC 28.02 H (4.8-10.8) K/uL RBC 2.45 L (4.7-6.1) M/uL Hgb 8.8 L (14.0-18.0) g/dL Hct 28.2 L (42-52) % MCV 115.1 H (80-100) fL MCH 35.9 H (25-34) pg MCHC 31.2 L (32-36) g/dL RDW Std Deviation 70.5 H (36.4-46.3) fL RDW Coeff of Elvia 16.9 H (11.5-14.5) % Plt Count 122 L (130-400) K/uL MPV 12.1 H (7.4-10.4) fL Immature Gran % (Auto) 0.5 % Neut % (Auto) 92.6 % Lymph % (Auto) 2.1 % Teton % (Auto) 4.7 % Eos % (Auto) 0.0 % Baso % (Auto) 0.1 % Immature Gran # (Auto) 0.15 H (0.00-0.02) K/uL Neut # (Auto) 25.94 H (1.4-6.5) K/uL Lymph # (Auto) 0.59 L (1.2-3.4) K/uL Teton # (Auto) 1.32 H (0.11-0.59) K/uL Eos # (Auto) 0.00 (0-0.5) K/uL Baso # (Auto) 0.02 (0-0.2) K/uL Platelet Estimate Decreased L (Normal) Macrocytosis Present PT (9.0-12.0) Seconds INR (0.9-1.1) APTT (21.0-31.0) Seconds PTT Ratio Sodium 134 L (136-145) mmol/L Potassium 5.0 (3.5-5.1) mmol/L Chloride 100 (98-107) mmol/L Carbon Dioxide 25 (21-32) mmol/L Anion Gap 9.0 (3-11) BUN 52 H (7-18) mg/dl Creatinine 6.52 H* (0.6-1.4) mg/dl Est Cr Clr Drug Dosing 9.6 ml/min Est GFR ( Amer) 8.3 Est GFR (Non-Af Amer) 7.1 BUN/Creatinine Ratio 8.0 L (10-20) Glucose 220 H (70-99) mg/dl Lactate (0.4-2.0) mmol/L Calcium 8.2 L (8.5-10.1) mg/dl Magnesium Cancelled 1.7 L Total Bilirubin 0.4 (0.2-1) mg/dl AST 16 (15-37) U/L ALT 17 (12-78) U/L Alkaline Phosphatase 117 (45-117) U/L Troponin I 0.022 (0-0.045) ng/ml Total Protein 7.8 (6.4-8.2) gm/dl Albumin 2.7 L (3.4-5.0) gm/dl Globulin 5.1 H (2.5-4.0) gm/dl Albumin/Globulin Ratio 0.5 L (0.9-2) Lipase 217 (73-393) U/L TSH Cancelled 1.530 Stl C. diff Tox B Gene (Neg) 10/06/19 10/06/19 10/06/19 Range/Units 05:44 06:35 06:35 WBC (4.8-10.8) K/uL RBC (4.7-6.1) M/uL Hgb (14.0-18.0) g/dL Hct (42-52) % MCV (80-100) fL MCH (25-34) pg MCHC (32-36) g/dL RDW Std Deviation (36.4-46.3) fL RDW Coeff of Elvia (11.5-14.5) % Plt Count (130-400) K/uL MPV (7.4-10.4) fL Immature Gran % (Auto) % Neut % (Auto) % Lymph % (Auto) % Teton % (Auto) % Eos % (Auto) % Baso % (Auto) % Immature Gran # (Auto) (0.00-0.02) K/uL Neut # (Auto) (1.4-6.5) K/uL Lymph # (Auto) (1.2-3.4) K/uL Teton # (Auto) (0.11-0.59) K/uL Eos # (Auto) (0-0.5) K/uL Baso # (Auto) (0-0.2) K/uL Platelet Estimate (Normal) Macrocytosis PT 33.0 H (9.0-12.0) Seconds INR 3.5 H (0.9-1.1) APTT 50.7 H* (21.0-31.0) Seconds PTT Ratio 1.9 Sodium (136-145) mmol/L Potassium (3.5-5.1) mmol/L Chloride (98-107) mmol/L Carbon Dioxide (21-32) mmol/L Anion Gap (3-11) BUN (7-18) mg/dl Creatinine (0.6-1.4) mg/dl Est Cr Clr Drug Dosing ml/min Est GFR ( Amer) Est GFR (Non-Af Amer) BUN/Creatinine Ratio (10-20) Glucose (70-99) mg/dl Lactate 3.1 H* (0.4-2.0) mmol/L Calcium (8.5-10.1) mg/dl Magnesium Total Bilirubin (0.2-1) mg/dl AST (15-37) U/L ALT (12-78) U/L Alkaline Phosphatase (45-117) U/L Troponin I (0-0.045) ng/ml Total Protein (6.4-8.2) gm/dl Albumin (3.4-5.0) gm/dl Globulin (2.5-4.0) gm/dl Albumin/Globulin Ratio (0.9-2) Lipase (73-393) U/L TSH Stl C. diff Tox B Gene Positive Cdiff Gene H (Neg) Imaging Data Radiologist's Impression: Radiology results as stated below per my review and the radiologist's interpretation: CT ABDOMEN & PELVIS With Contrast: Direct comparison made to prior study from May 09, 2019. The caudate lobe of the liver is mildly enlarged suggesting underlying cirrhosi s. The finding is stable from the prior study. The spleen is not enlarged. Pancreas appears normal. There is cholelithiasis without gallbladder distention or thickening. Stomach, small bowel, colon and appendix appear normal. There is a left renal cyst. There is no hydronephrosis or renal stone. Bladder appears normal. Prostate appears normal. There is an inferior vena cava filter. There are moderate atherosclerotic changes in the abdominal vessels. There is a calcified granuloma in the right middle lobe. There is airspace opacity in the right middle lobe. There are enlarged right hilar lymph nodes. There are small bilateral pleural fluid collections. There has been a previous right hip replacement. Impression: Right middle lobe airspace opacity and right hilar lymph node enlargement are incompletely imaged that were present at the time of the prior study. Correlation with pulmonary history and exam recommended. Cholelithiasis. Radiologist: Arcadio Fregsoo MD. Blood Pressure Blood Pressure Findings: Normal blood pressure Blood Pressure Disposition: did not require urgent referral MDM Narrative The patient is an 84 year old male who presents to the emergency department with complaints of intermittent nausea and vomiting for the last week and a half. The patient is a dialysis patient. He has had bloody stools along with diarrhea for the past couple of days. On physical exam, he has right lower quadrant abdominal pain with palpation. The patient was noted to have significant leukocytosis and an elevated lactate. He was hypotensive with systolic blood pressures in the 90s. He received IV crystalloid therapy. Blood cultures were obtained. He received IV antibiotics for a right middle lobe pneumonia that was diagnosed on the CT scan of the abdomen/pelvis. There was no evidence of acute appendicitis. I discussed the case with the [facility] hospitalist and they will evaluate for further management. Impression & Plan Pneumonia, GI bleed Discharge Plan Visit Data Chief Complaint: Nausea Stated Complaint: nausea/vomiting ED Provider: Syl Fuller Discharge Problem: Pneumonia, GI bleed Patient Disposition: Being Evaluated by Hospitalist Forms Stand Alone Forms: My [facility] Prescriptions Prescriptions: No Action metoprolol succinate 50 mg Tablet Extended Release 24 Hr 50 mg PO DAILY RF: 0 omega 4-nkl-kqa-fish oil [Fish Oil] 1,000 mg (120 mg-180 mg) Capsule 1 cap PO DAILY RF: 0 metoprolol tartrate 25 mg tablet 12.5 mg PO 3XWK RF: 0 acetaminophen [Tylenol Extra Strength] 500 mg Tablet 500 mg PO Q6H PRN (Reason: Pain) RF: 0 omeprazole 20 mg capsule,delayed release(DR/EC) 20 mg PO DAILY RF: 0 cholecalciferol (vitamin D3) [Vitamin D3] 1,000 unit Capsule 1,000 unit PO DAILY RF: 0 warfarin [Coumadin] 5 mg tablet 2.5 mg PO DAILY RF: 0 Sherley-Neeraj 0.8 mg tablet 1 tab PO DAILY RF: 0 fluticasone propionate [Flonase Allergy Relief] 50 mcg/actuation [employer],Suspension 1 spray INTRANASAL DAILY PRN (Reason: Nasal Congestion) RF: 0 docusate sodium 100 mg Tablet 100 mg PO BID PRN (Reason: Constipation) RF: 0 sevelamer carbonate 800 mg tablet 800 mg PO BIDM RF: 0 Referrals Referrals: Zach Gooden MD [Primary Care Provider] - Discharge Problem: Pneumonia Qualifiers: Pneumonia type: due to unspecified organism Laterality: right Lung location: middle lobe of lung Qualified Code(s): J18.9 - Pneumonia, unspecified organism GI bleed Qualifiers: GI bleed type/associated pathology: unspecified gastrointestinal hemorrhage type Qualified Code(s): K92.2 - Gastrointestinal hemorrhage, unspecified The scribe's documentation has been prepared under my direction and personally reviewed by me in its entirety. I confirm that the note above accurately reflects all work, treatment, procedures, and medical decision making performed by me.
[2019-10-06] MEDS ORDERED: PHYTONADIONE 10 MG in SODIUM CHLORIDE 0.9% 50 ML IV ONE (07:45)
[2019-10-06 07:47] LABS: Cdiff Antigen Positive
[2019-10-06 07:51] LABS: Cdiff Toxin A+B Positive Cdiff Toxin (Negative)
[2019-10-06] MEDS ORDERED: ACETAMINOPHEN 325 MG TAB PO PRN (09:12)
[2019-10-06] MEDS ORDERED: HYDROmorphone INJ 0.5 MG/0.5 ML SYR IV PRN (09:12)
[2019-10-06] MEDS ORDERED: GLUCAGON FOR INJ 1 MG VIAL SQ PRN (09:12)
[2019-10-06] MEDS ORDERED: GLUCOSE 10 TABS/TUBE PO PRN (09:12)
[2019-10-06] MEDS ORDERED: PROMETHAZINE HCL 12.5 MG in SODIUM CHLORIDE 0.9% 50 ML IV PRN (09:12)
[2019-10-06] MEDS ORDERED: DEXTROSE 50% 50 ML SYRINGE IV PRN (09:12)
[2019-10-06] MEDS ORDERED: CARBOHYDRATES FOR HYPOGLYCEMIA PO PRN (09:12)
[2019-10-06] MEDS ORDERED: GLUCOSE 40% GEL 15 GM TUBE PO PRN (09:12)
[2019-10-06] MEDS ORDERED: TRAMADOL HCL 50 MG TABLET PO PRN (09:12)
[2019-10-06] MEDS ORDERED: INSULIN GLARGINE SOLOSTAR 100 UNITS/ML 3 ML PEN SC STA (09:12)
[2019-10-06] MEDS ORDERED: MAGNESIUM SULFATE / D5W 1 GM/100 ML BAG IV STA (09:17)
[2019-10-06] MEDS ORDERED: VANCOMYCIN HCL 500 MG/10 ML SOLN PO SCH ×2 (10:00→12:00)
[2019-10-06] MEDS ORDERED: RASPBERRY SYRUP 5 ML UDP PO SCH ×2 (10:00→12:00)
[2019-10-06 10:09] LABS: Hematocrit (blood only) 27.9 % (42-52); Hemoglobin 8.7 g/dL (14.0-18.0)
[2019-10-06] MEDS: SEVELAMER HCL 800 MG TABLET PO SCH ×2 (10:10→16:59)
[2019-10-06] MEDS: CHOLECALCIFEROL 1,000 UNITS TAB PO SCH (10:10)
[2019-10-06] MEDS: INSULIN ASPART 100 UNITS/ML 3 ML PEN SC SCH ×4 (10:11→21:23)
[2019-10-06] MEDS: RASPBERRY SYRUP 5 ML UDP PO SCH ×3 (10:16→21:22)
--- NOTE | 2019-10-06 13:10 | Gastrointestinal Consultation ---
Date of Consultation October 06, 2019 Assessment & Plan (1) Sepsis: (2) Rectal bleeding: (3) Clostridium difficile infection: Pt is a 84 y/o male who presented with n/v, bloody diarrhea; on eval noted to have elevated WBC of 28K and stool for Cdiff was tested positive. CXR w/o signs of pneumonia, blood cx pending. - For Cdiff: will DC Flagyl but continue Vancomycin 125mg QID x 10 days - Sepsis management per primary team. F/U blood cx, recommend checking urine cx - Monitor H/H and transfuse prn - Agree with holding Coumadin for now Attg add: I interviewed and examined pt, reviewed chart and labs. Pt with diarrhea, marked leukocytosis. Hungry, asking for food. On exam, he appears well - abd is non tender. RECS: C diff - Would ask primary to consider d/c Zosyn and PPI therapy. Vanco 125, follow clinical exam. History of Present Illness Reason for Consultation: Cdiff, GI bleeding on anticoagulation Requesting Physician: Dr. Caden Ortiz Attending Physician: Dr. Winston Rios History of Present Illness Pt is a 84 y/o male who presented yesterday w c/o n/v, bloody diarrhea and abd discomfort x 1 week. He denies any CP, SOB, fever, chills. He has PMhx of R Heart Failure, CAD, Aflutter s/p ablation, recurrent PE/DVT, s/p AVF on Coumadi n, ESRD on hemodialysis e,, Sat. INR on admission was 3.5, received Vit K. It's also noted that his WBC was 28K, BP soft last night 80s/50s. Cdiff was positive. He is receiving Zosyn, Flagyl IV and Vancomycin PO for suspected sepsis and the + Cdiff. CXR showed signs of trace pleural effusion, no pneumonia. CT abd/pelvis w contrast: 1. Cholelithiasis 2. No evidence of bowel obstruction. No evidence of free air. 3. No evidence of acute appendicitis. No evidence of acute diverticulitis. 4. Partially visualized enlarged right hilar lymph node Pt reports stools have varying consistencies - however most recently is loose. He notices rectal bleeding mostly if his stools are firmer. He does have hx of adenomatous polyps, last colonoscopy in 2010, and perianal fistula s/p fistulotomy in 2011. Allergies Allergy/AdvReac Type Severity Reaction Status Date / Time aspirin Allergy Unknown . Verified 10/06/19 04:33 salicylates Allergy Unknown UNKNOWN Verified 10/06/19 04:33 Home Medications Home Medications Medication Instructions Recorded Confirmed Type acetaminophen [Tylenol Extra 500 mg PO Q6H PRN 06/14/18 10/06/19 History Strength] cholecalciferol (vitamin D3) 1,000 unit PO DAILY 06/14/18 10/06/19 History [Vitamin D3] omeprazole 20 mg PO DAILY 06/14/18 10/06/19 History Sherley-Neeraj 1 tab PO DAILY 03/18/19 10/06/19 History docusate sodium 100 mg PO BID PRN 03/18/19 10/06/19 History fluticasone propionate [Flonase 1 spray INTRANASAL DAILY PRN 03/18/19 10/06/19 History Allergy Relief] sevelamer carbonate 800 mg PO BIDM 03/18/19 10/06/19 History warfarin [Coumadin] 2.5 mg PO DAILY 03/18/19 10/06/19 History metoprolol succinate 50 mg PO DAILY 05/21/19 10/06/19 History omega 2-eju-npx-fish oil [Fish Oil] 1 cap PO DAILY 05/21/19 10/06/19 History metoprolol tartrate 12.5 mg PO 3XWK 10/06/19 10/06/19 History Patient History Medical History Anemia (Chronic) 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) Aortic valve insufficiency (Chronic) Atrial flutter (Chronic) DVT (deep venous thrombosis) (Chronic) " 01/13/09 left leg " Dyslipidemia (Chronic) ESRD (end stage renal disease) on dialysis (Chronic) GERD (gastroesophageal reflux disease) (Chronic) Gram-positive bacteremia (Resolved) HTN (hypertension) (Chronic) Hx of amaurosis fugax (Chronic) "01/27/09, OD " PMR (polymyalgia rheumatica) (Chronic) 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) Type 2 diabetes mellitus (Chronic) Surgical History H/O carotid endarterectomy (Chronic) "STEPHY 2008" H/O removal of testicle (Chronic) H/O superior vena cava filter placement (Chronic) History of hydrocelectomy (Chronic) History of total hip replacement (Chronic) S/P ablation of atrial flutter (Chronic) S/P aortic valve replacement (Chronic) "bio prosthetic" S/P cardiac cath (Chronic) "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" Family History Mother Hypertension Brother Stroke Social History Preferred Language: Libyan Communication Ability: Effective Visual Impairment: Partially Limited 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 Feels Safe at Home: Yes Safety Concerns: Feels Safe At This Time Smoking Status: Never smoker Do You Dip or Chew Tobacco: No ; Second Hand Exposure: Yes ; Hx Alcohol Use: No Hx Substance Use: No Review of Systems Review of Systems: All systems reviewed & are unremarkable except as noted in HPI & below Physical Exam Constitutional: WD/WN, vitals as above well groomed, cooperative and comfortable Eyes: PERRL, conjunctivae normal, anicteric sclerae ENMT: external ear and nose normal, oropharynx normal Respiratory: normal respiratory effort, lungs clear to auscultation Cardiovascular: RRR, no murmur, no edema Gastrointestinal (Abdomen): normal bowel sounds, soft, nontender, no hepatosplenomegaly Skin: no rashes, warm and dry no jaundice Psychiatric: A+Ox3, euthymic affect Lymphatic: no lymphedema Results & Data Vital Signs (Past 12 Hours) Vital Signs Temp Pulse Pulse Resp BP BP Pulse Ox 10/06/19 11:45 72 10/06/19 11:33 36.7 C 72 18 96/54 L 97 10/06/19 08:53 36.6 C 72 18 83/46 L 90 10/06/19 08:05 71 20 95/57 L 95 10/06/19 07:03 72 20 96/55 L 98 10/06/19 06:13 72 12 110/60 98 10/06/19 05:15 72 18 97/62 L 96 10/06/19 04:23 74 21 96 10/06/19 04:01 37.3 C 74 18 92/59 L 97
[2019-10-06] MEDS ORDERED: PIPERACILLIN/TAZOBACTAM 3.375 GM in DEXTROSE 5% 100 ML IV SCH (14:00)
--- NOTE | 2019-10-06 15:18 | Electrocardiogram Report ---
Test Reason : Blood Pressure : / mmHG Vent. Rate : 071 BPM Atrial Rate : 071 BPM P-R Int : 116 ms QRS Dur : 080 ms QT Int : 406 ms P-R-T Axes : 000 -20 -08 degrees QTc Int : 441 ms Normal sinus rhythm with 1st degree A-V block Nonspecific ST abnormality Abnormal ECG When compared with ECG of 27-MAY-2019 20:43, Sinus rhythm has replaced Atrial flutter Confirmed by Tyree Almonte ([id number]) on 10/06/2019 3:18:08 PM Referred By: REFERRED SELF Confirmed By:Tyree Almonte
[2019-10-06] MEDS: VANCOMYCIN HCL 125 MG/2.5ML SOLN PO SCH ×2 (15:44→21:22)
[2019-10-06] MEDS ORDERED: metroNIDAZOLE 500 MG/100 ML BAG IV SCH (16:00)
[2019-10-06] MEDS ORDERED: CONSULT PHARMACY STA (16:04)
--- NOTE | 2019-10-06 16:06 | Nephrology Consultation ---
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 The diarrhea started on the a few wks back and has been intermittent > he signed off an hour early on his routinely scheduled sunday tx more d/t general malaise than to diarrhea. chronic lymphedema worse past few days w/ less HD. This am in ambulance he had yellowish emesis a few bouts. None since admission. He dialyzes under my care TRSat via AVF and is generally adherent w/ txs. INR was 3.5 on presentation. Allergies Allergy/AdvReac Type Severity Reaction Status Date / Time aspirin Allergy Unknown . Verified 10/06/19 04:33 salicylates Allergy Unknown UNKNOWN Verified 10/06/19 04:33 Home Medications Home Medications Medication Instructions Recorded Confirmed Type acetaminophen [Tylenol Extra 500 mg PO Q6H PRN 06/14/18 10/06/19 History Strength] cholecalciferol (vitamin D3) 1,000 unit PO DAILY 06/14/18 10/06/19 History [Vitamin D3] omeprazole 20 mg PO DAILY 06/14/18 10/06/19 History Sherley-Neeraj 1 tab PO DAILY 03/18/19 10/06/19 History docusate sodium 100 mg PO BID PRN 03/18/19 10/06/19 History fluticasone propionate [Flonase 1 spray INTRANASAL DAILY PRN 03/18/19 10/06/19 History Allergy Relief] sevelamer carbonate 800 mg PO BIDM 03/18/19 10/06/19 History warfarin [Coumadin] 2.5 mg PO DAILY 03/18/19 10/06/19 History metoprolol succinate 50 mg PO DAILY 05/21/19 10/06/19 History omega 5-[id number]-fish oil [Fish Oil] 1 cap PO DAILY 05/21/19 10/06/19 History metoprolol tartrate 12.5 mg PO 3XWK 10/06/19 10/06/19 History Patient History Medical History Anemia (Chronic) 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) Aortic valve insufficiency (Chronic) Atrial flutter (Chronic) DVT (deep venous thrombosis) (Chronic) " 01/13/09 left leg " Dyslipidemia (Chronic) ESRD (end stage renal disease) on dialysis (Chronic) GERD (gastroesophageal reflux disease) (Chronic) Gram-positive bacteremia (Resolved) HTN (hypertension) (Chronic) Hx of amaurosis fugax (Chronic) "01/27/09, OD " PMR (polymyalgia rheumatica) (Chronic) 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) Type 2 diabetes mellitus (Chronic) Surgical History H/O carotid endarterectomy (Chronic) "2008" H/O removal of testicle (Chronic) H/O superior vena cava filter placement (Chronic) History of hydrocelectomy (Chronic) History of total hip replacement (Chronic) S/P ablation of atrial flutter (Chronic) S/P aortic valve replacement (Chronic) "bio prosthetic" S/P cardiac cath (Chronic) "2012 - non obstructive CAD" Family History Mother Hypertension Brother Stroke Social History Preferred Language: Serbian Communication Ability: Effective Visual Impairment: Partially Limited [employer] Required: No Beliefs That Will Affect Care: None marital status: Current Living Situation: Spouse Current Living Situation Comment: lives with Vannesa and six dogs in three story home. Feels Safe at Home: Yes Safety Concerns: Feels Safe At This Time Smoking Status: Never smoker Do You Dip or Chew Tobacco: No ; Second Hand Exposure: Yes ; Hx Alcohol Use: No Hx Substance Use: No Review of Systems Review of Systems: All systems reviewed & are unremarkable except as noted in HPI & below Physical Exam Constitutional: well developed, well nourished, + frail appearing and cooperative; no acute distress (sitting in bed on RA dosing, wakens fully) Eyes: EOM intact bilaterally ENMT: Ears: no external ear abnormality Nose: no external nose abnormality Mouth: + dry oral mucous membranes Neck: no nuchal rigidity Respiratory: normal respiratory effort Auscultation: + diminished lung sounds and + crackles (fine, bilateral) Cardiovascular: Rate/Rhythm: regular rate and regular rhythm Heart Sounds: + murmur Extremities: + edema (2-3+) and + AV fistula (+ t/b) Gastrointestinal (Abdomen): Inspection/Auscultation: normal bowel sounds Percussion/Palpation: abdomen soft; abdomen nontender Musculoskeletal: Extremities: strength 5/5 throughout Skin: no rashes, warm and dry Neurologic: uribe, fluent speech, no tremor Psychiatric: A+Ox3, euthymic affect Genitourinary: no urrutia Results & Data Vital Signs (Past 12 Hours) Vital Signs Temp Pulse Pulse Resp BP BP Pulse Ox 10/06/19 15:51 36.4 C L 66 16 104/58 L 96 10/06/19 11:45 72 10/06/19 11:33 36.7 C 72 18 96/54 L 97 10/06/19 08:53 36.6 C 72 18 83/46 L 90 10/06/19 08:05 71 20 95/57 L 95 10/06/19 07:03 72 20 96/55 L 98 10/06/19 06:13 72 12 110/60 98 10/06/19 05:15 72 18 97/62 L 96 10/06/19 04:23 74 21 96 10/06/19 04:01 37.3 C 74 18 92/59 L 97 Laboratory Results 10/06/19 09:46 10/06/19 04:11 2/2 blood cxs GPC in chains Diagnostic Findings CT abd/pelvis 1. Cholelithiasis 2. No evidence of bowel obstruction. No evidence of free air. 3. No evidence of acute appendicitis. No evidence of acute diverticulitis. 4. Partially visualized enlarged right hilar lymph node >has IVC filter cxr 1. No change in reticulonodular interstitial thickening which is likely chronic. 2. Trace pleural effusion. 3. No consolidation to suggest pneumonia.
[2019-10-06] MEDS ORDERED: VANCOMYCIN HCL 2,000 MG in SODIUM CHLORIDE 0.9% 500 ML IV STA (16:12)
[2019-10-06] MEDS ORDERED: PIPERACILLIN/TAZOBACTAM 2.25 GM in DEXTROSE 5% 100 ML IV STA (16:18)
[2019-10-06] MEDS ORDERED: VANCOMYCIN CONSULT ACTIVE PRN (16:19)
--- NOTE | 2019-10-06 16:46 | Pharmacy Report ---
Pharmacy Abx Dose Short Note - Date of Service October 06, 2019 - Assessment & Plan Assessment * 84 year old M receiving Zosyn IV, vancomycin IV, and vancomycin po for treatment of 2/2 GPC (in chains) bacteremia and C. diff * ESRD on HD as outpatient - HD planned for tomorrow * Will load with vancomycin 21 mg/kg and check pre-HD level in AM Plan * Vancomycin 2000 mg IV x1 * Random level with AM labs tomorrow Pharmacy will continue to follow and will adjust dose/frequency as necessary. Thank you.
--- NOTE | 2019-10-06 19:02 | Hospitalist Progress Note ---
Date of Service October 06, 2019 Assessment & Plan (1) Sepsis: Sepsis C. difficile colitis Gram-positive bacteremia H/O MSSA Bacteremia Elevated lactate levels in setting of ESRD CXR:No change in reticulonodular interstitial thickening which is likely chronic. Trace pleural effusion. No consolidation to suggest pneumonia. Blood Cx: Gram-positive cocci in chains Stool Positive for C. difficile toxin A Obtain ECHO Repeat blood Cx in AM Empirically Continue IV Vanco, Zosyn Gentle IV fluids Monitor volume status closely given ESRD/CHF Continue p.o. vancomycin for C. difficile Appreciate GI input Consider cardiology evaluation if echo abnormal Clear liquid diet today Rectal bleeding In setting of coagulopathy due to Coumadin; C. difficile colitis H/O diverticulosis, doroteo-anal fistula Monitor H&H Transfuse PRBCs as needed Hold Coumadin for now Received vitamin K Monitor INR Hypomagnesemia Secondary to GI losses Replace electrolytes as needed P. 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 S/P IVC filter INR supratherapeutic:3.5 Due to rectal bleeding Monitor INR Continue metoprolol with holding parameters Chronic right-sided heart failure Last EF 60-65%, TTE 2019 Volume status managed through dialysis H/O Non-occlusive CAD H/O Bioprosthetic AVR Carotid artery disease S/P Surgery H/O aspirin allergy Anticoagulation held due to rectal bleeding ESRD on HD Continue hemodialysis Appreciate nephrology input DM II Diet-controlled Last Hb A1C:7.3 Continue insulin therapy while hospitalized Monitor blood glucose levels Chronic anemia Hb at baseline Monitor DVT Px: SCDs Re: rectal bleeding Code Status Full code Disposition PT/OT prior to discharge Subjective Patient is seen and examined at bedside States feeling better since the time of admission Continues to have diarrhea with some blood Denies any nausea, vomiting, abdominal pain, chest pain, shortness of breath this morning Blood cultures growing gram-positive cocci Discussed with GI today Physical Exam Physical Exam: Physical Exam: Vitals signs as noted above General Appearance:Moderately built and nourished, no apparent distress Head: normocephalic, Atraumatic Eyes: normal inspection, EOMI Neck: supple, Trachea midline Respiratory/Chest: Normal breath sounds, CTA, No accessory muscle use Cardiovascular: S1, S2, No murmur Abdomen/GI:Soft, Non tender, protuberant, bowel sounds present Extremities/Musculoskelatal:normal inspection, 1+ B/L LE edema Neurologic/Psych:AAOX3, grossly no focal neurological deficits Skin: normal color, warm, + well-healed vertical surgical scar Results & Data Vital Signs (Past 12 Hours) Vital Signs Temp Pulse Pulse Resp BP Pulse Ox 10/06/19 17:49 72 10/06/19 16:04 73 10/06/19 15:51 36.4 C L 66 16 104/58 L 96 10/06/19 11:45 72 10/06/19 11:33 36.7 C 72 18 96/54 L 97 10/06/19 08:53 36.6 C 72 18 83/46 L 90 10/06/19 08:05 71 20 95/57 L 95 10/06/19 07:03 72 20 96/55 L 98 Laboratory Results Short CBC 10/06/19 10/06/19 Range/Units 04:11 09:46 WBC 28.02 H (4.8-10.8) K/uL Hgb 8.8 L 8.7 L (14.0-18.0) g/dL Hct 28.2 L 27.9 L (42-52) % Plt Count 122 L (130-400) K/uL BMP 10/06/19 04:11 Sodium 134 L Potassium 5.0 Chloride 100 Carbon Dioxide 25 BUN 52 H Creatinine 6.52 H* Glucose 220 H Calcium 8.2 L Cardiac Enzymes 10/06/19 Range/Units 04:11 Troponin I 0.022 (0-0.045) ng/ml Liver Function 10/06/19 Range/Units 04:11 Total Bilirubin 0.4 (0.2-1) mg/dl AST 16 (15-37) U/L ALT 17 (12-78) U/L Alkaline Phosphatase 117 (45-117) U/L Albumin 2.7 L (3.4-5.0) gm/dl
[2019-10-06] MEDS ORDERED: SODIUM CHLORIDE 0.9% 1000ML 500 ML IV ONE (19:05)
[2019-10-07] MEDS ORDERED: MAGNESIUM SULFATE / D5W 1 GM/100 ML BAG IV ONE (00:35)
[2019-10-07] MEDS ORDERED: METOPROLOL TARTRATE 25 MG TAB PO STA (00:39)
[2019-10-07 01:14] LABS: Hematocrit (blood only) 25.4 % (42-52); Hemoglobin 8.3 g/dL (14.0-18.0); Mean Corpuscular Hemoglobin 36.6 pg (25-34); Mean Corpuscular Hgb Conc 32.7 g/dL (32-36); Mean Corpuscular Volume 111.9 fL (80-100); Mean Platelet Volume 11.8 fL (7.4-10.4); Platelet Count 99 K/uL (130-400); RDW Coefficient of Variation 17.5 % (11.5-14.5); RDW Standard Deviation 71.2 fL (36.4-46.3); Red Blood Count 2.27 M/uL (4.7-6.1); White Blood Count 17.66 K/uL (4.8-10.8)
[2019-10-07] MEDS: MAGNESIUM SULFATE / D5W 1 GM/100 ML BAG IV SCH ×2 (01:18→02:36)
[2019-10-07 01:19] LABS: INR 1.7 (0.9-1.1); Prothrombin Time 17.1 Seconds (9.0-12.0)
[2019-10-07 01:38] LABS: Basophils # (auto) 0.04 K/uL (0-0.2); Basophils % (auto) 0.2 %; Eosinophils # (auto) 0.01 K/uL (0-0.5); Eosinophils % (auto) 0.1 %; Giant Platelets 1+; Immature Granulocytes % (auto) 0.6 %; Lymphocytes # (auto) 1.17 K/uL (1.2-3.4); Lymphocytes % (auto) 6.6 %; Macrocytosis Present; Monocytes % (auto) 6.2 %; Neutrophils # (auto) 15.24 K/uL (1.4-6.5); Neutrophils % (auto) 86.3 %
[2019-10-07 01:47] LABS: BUN Creatinine Ratio 8.7 (10-20); Calcium 7.7 mg/dl (8.5-10.1); Est GFR (African American) 7.6; Est GFR (Non-African American) 6.6; Magnesium 1.9 mg/dl (1.8-2.4); Potassium 4.4 mmol/L (3.5-5.1)
[2019-10-07] MEDS: PIPERACILLIN/TAZOBACTAM 3.375 GM in DEXTROSE 5% 100 ML IV SCH ×2 (02:41→14:12)
[2019-10-07] MEDS: VANCOMYCIN HCL 125 MG/2.5ML SOLN PO SCH ×4 (03:24→21:04)
[2019-10-07] MEDS: RASPBERRY SYRUP 5 ML UDP PO SCH ×4 (03:24→21:05)
[2019-10-07] MEDS ORDERED: ALBUMIN 25% 50 ML IV ONE (03:33)
[2019-10-07] MEDS ORDERED: SODIUM CHLORIDE 0.9% 1000ML 1,000 ML IV PRN (07:00)
[2019-10-07] MEDS ORDERED: EPOETIN ALFA 20,000 UNITS/ML VIAL IV ONE (07:00)
[2019-10-07] MEDS ORDERED: PANTOprazole 40 MG TAB PO SCH (09:00)
[2019-10-07] MEDS: INSULIN ASPART 100 UNITS/ML 3 ML PEN SC SCH ×4 (09:10→20:56)
[2019-10-07] MEDS: SEVELAMER HCL 800 MG TABLET PO SCH ×2 (09:11→17:33)
[2019-10-07] MEDS: INSULIN GLARGINE SOLOSTAR 100 UNITS/ML 3 ML PEN SQ SCH (09:11)
[2019-10-07 09:58] LABS: Estimated Average Glucose 171 mg/dl; Hemoglobin A1C 7.6 % (4.5-5.6)
--- NOTE | 2019-10-07 11:39 | Gastroenterology Progress Note ---
Date of Service October 07, 2019 Assessment & Plan (1) Sepsis: (2) Rectal bleeding: (3) Clostridium difficile infection: Pt is a 84 y/o male who presented with n/v, bloody diarrhea; on eval noted to have elevated WBC of 28K and stool for Cdiff was tested positive. CXR w/o signs of pneumonia, blood cx + streptococcus - For Cdiff: Continue Vancomycin 125mg QID x 10 days - Sepsis management per primary team - Monitor H/H and transfuse prn - Agree with holding Coumadin for now - Advance diet as tolerated - GI to sign off, pls recall prn Attg add: I interviewed and examined pt, reviewed chart and labs. He is clearly improved on Vanco. Please continue 10 day course or, if he needs to continue systemic abx, cont Vanco for 1 week after abx completion. Will sign off, reconsult as needed. Subjective Pt is not having much diarrhea or rectal bleeding. Denies abd pain, n/v. Blood ct stable. Review of Systems Review of Systems: All systems reviewed & are unremarkable except as noted in HPI & below Physical Exam Constitutional: WD/WN, vitals as above well groomed, cooperative and comfortable Eyes: PERRL, conjunctivae normal, anicteric sclerae ENMT: external ear and nose normal, oropharynx normal Respiratory: normal respiratory effort, lungs clear to auscultation Cardiovascular: RRR, no murmur, no edema Gastrointestinal (Abdomen): normal bowel sounds, soft, nontender, no hepatosplenomegaly Skin: no rashes, warm and dry no jaundice Psychiatric: A+Ox3, euthymic affect Lymphatic: no lymphedema Results & Data Vital Signs (Past 12 Hours) Vital Signs Temp Pulse Pulse Pulse Resp BP BP 10/07/19 11:20 103 H 124/84 10/07/19 11:00 99 H 120/80 10/07/19 10:40 92 H 117/75 10/07/19 10:20 104 H 117/74 10/07/19 10:00 108 H 129/85 10/07/19 09:44 36.3 C L 106 H 10/07/19 09:40 108 H 129/85 10/07/19 09:25 106 H 122/85 10/07/19 08:37 106 H 10/07/19 07:45 36.3 C L 103 H 18 115/74 10/07/19 06:50 60 10/07/19 06:20 70 10/07/19 04:00 36.5 C 66 20 100/56 L 10/07/19 01:14 108 H 109/71 10/06/19 23:42 36.4 C L 107 H 20 103/66 Pulse Ox 10/07/19 11:20 10/07/19 11:00 10/07/19 10:40 10/07/19 10:20 10/07/19 10:00 10/07/19 09:44 10/07/19 09:40 10/07/19 09:25 10/07/19 08:37 10/07/19 07:45 94 10/07/19 06:50 10/07/19 06:20 10/07/19 04:00 95 10/07/19 01:14 10/06/19 23:42 97
[2019-10-07] MEDS: METOPROLOL SUCC 50MG EXT REL TAB PO SCH (13:51)
[2019-10-07] MEDS: CHOLECALCIFEROL 1,000 UNITS TAB PO SCH (13:51)
--- NOTE | 2019-10-07 19:12 | Dialysis Progress Note ---
Date of Service October 07, 2019 Assessment & Plan (1) Gram-positive bacteremia: 01/02 admission bottles + w/in 24 hrs for strep. 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: also w/ component of blood loss from diarrhea, w/ elevated INR > will give epo on hd Subjective seen on HD this am at about 1030; tolerating procedure; diarrhea not slowing per pt but clinically better on po vanco; eager to advance diet; no n/v; streptococcal bacteremia Review of Systems Review of Systems: All systems reviewed & are unremarkable except as noted in HPI & below Physical Exam Constitutional: well developed, well nourished and cooperative; no acute distress (sitting in bed on RA dosing) Eyes: EOM intact bilaterally ENMT: Ears: no external ear abnormality Nose: no external nose abnormality Mouth: + dry oral mucous membranes Neck: no nuchal rigidity Respiratory: normal respiratory effort Auscultation: lungs clear to auscultation bilaterally and + diminished lung sounds Cardiovascular: Rate/Rhythm: regular rhythm and + tachycardic Heart Sounds: + murmur Extremities: + edema (1-2+) and + AV fistula (+ t/b) Gastrointestinal (Abdomen): Inspection/Auscultation: normal bowel sounds Percussion/Palpation: abdomen soft; abdomen nontender Musculoskeletal: Extremities: strength 5/5 throughout Skin: no rashes, warm and dry Neurologic: uribe, fluent speech, no tremor Psychiatric: A+Ox3, euthymic affect Results & Data Vital Signs (Past 12 Hours) Vital Signs Temp Pulse Pulse Pulse Resp BP BP 10/07/19 15:04 36.5 C 113 H 22 146/76 H 10/07/19 13:55 36.2 C L 104 H 116/69 10/07/19 13:20 104 H 123/64 10/07/19 13:01 114 H 114/73 10/07/19 12:40 108 H 114/65 10/07/19 12:20 101 H 121/76 10/07/19 12:00 111 H 129/81 10/07/19 11:50 36.4 C L 103 H 20 10/07/19 11:40 99 H 119/69 10/07/19 11:20 103 H 124/84 10/07/19 11:00 99 H 120/80 10/07/19 10:40 92 H 117/75 10/07/19 10:20 104 H 117/74 10/07/19 10:00 108 H 129/85 10/07/19 09:44 36.3 C L 106 H 10/07/19 09:40 108 H 129/85 10/07/19 09:25 106 H 122/85 10/07/19 08:37 106 H 10/07/19 07:45 36.3 C L 103 H 18 115/74 Pulse Ox 10/07/19 15:04 95 10/07/19 13:55 10/07/19 13:20 10/07/19 13:01 10/07/19 12:40 10/07/19 12:20 10/07/19 12:00 10/07/19 11:50 97 10/07/19 11:40 10/07/19 11:20 10/07/19 11:00 10/07/19 10:40 10/07/19 10:20 10/07/19 10:00 10/07/19 09:44 10/07/19 09:40 10/07/19 09:25 10/07/19 08:37 10/07/19 07:45 94 Laboratory Results 10/07/19 00:51 10/07/19 00:51
[2019-10-07] MEDS ORDERED: WARFARIN SOD 2.5 MG TAB PO SCH (21:05)
--- NOTE | 2019-10-07 21:08 | Hospitalist Progress Note ---
Date of Service October 07, 2019 Assessment & Plan (1) Sepsis: Sepsis C. difficile colitis Gram-positive bacteremia H/O MSSA Bacteremia Elevated lactate levels in setting of ESRD CXR:No change in reticulonodular interstitial thickening which is likely chronic. Trace pleural effusion. No consolidation to suggest pneumonia. Blood Cx: Strep species Stool Positive for C. difficile toxin A Obtain ECHO--pending Repeat blood Cx: Pending Discontinue IV vancomycin Continue IV Zosyn for now Received gentle IV fluids Monitor volume status closely given ESRD/CHF Continue p.o. vancomycin for C. difficile Appreciate GI input Hold PPI Consider cardiology evaluation if echo abnormal Advance diet as tolerated Rectal bleeding In setting of coagulopathy due to Coumadin; C. difficile colitis H/O diverticulosis, doroteo-anal fistula Monitor H&H Transfuse PRBCs as needed Received vitamin K Monitor INR:3.5>>1.7 Continue to hold Coumadin Hypomagnesemia Secondary to GI losses Replace electrolytes as needed P. 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 S/P IVC filter INR 1.7 Hold Coumadin due to rectal bleeding Continue metoprolol with holding parameters Chronic right-sided heart failure Last EF 60-65%, TTE 2019 Volume status managed through dialysis H/O Non-occlusive CAD H/O Bioprosthetic AVR Carotid artery disease S/P Surgery H/O aspirin allergy Anticoagulation held due to rectal bleeding ESRD on HD Continue hemodialysis Appreciate nephrology input DM II Diet-controlled Last Hb A1C:7.3 Continue insulin therapy while hospitalized Monitor blood glucose levels Chronic anemia Hb at baseline Monitor DVT Px: SCDs Re: rectal bleeding Code Status Full code Disposition PT/OT prior to discharge Subjective Patient is seen and examined at bedside No significant diarrhea or rectal bleeding today States having mild left-sided abdominal discomfort Denies any nausea, vomiting, chest pain, SOB Blood cultures growing strep species Discussed with GI today Review of Systems Review of Systems: All systems reviewed & are unremarkable except as noted in HPI & below Physical Exam Physical Exam: Physical Exam: Vitals signs as noted above General Appearance:Moderately built and nourished, no apparent distress Head: normocephalic, Atraumatic Eyes: normal inspection, EOMI Neck: supple, Trachea midline Respiratory/Chest: Normal breath sounds, CTA, No accessory muscle use Cardiovascular: S1, S2, No murmur Abdomen/GI:Soft, Non tender, protuberant, bowel sounds present Extremities/Musculoskelatal:normal inspection, 1+ B/L LE edema Neurologic/Psych:AAOX3, grossly no focal neurological deficits Skin: normal color, warm, + well-healed vertical surgical scar Results & Data Vital Signs (Past 12 Hours) Vital Signs Temp Pulse Pulse Pulse Resp BP BP 10/07/19 20:15 36.8 C 108 H 20 146/79 H 10/07/19 19:29 108 H 10/07/19 15:04 36.5 C 113 H 22 146/76 H 10/07/19 13:55 36.2 C L 104 H 116/69 10/07/19 13:20 104 H 123/64 10/07/19 13:01 114 H 114/73 10/07/19 12:40 108 H 114/65 10/07/19 12:20 101 H 121/76 10/07/19 12:00 111 H 129/81 10/07/19 11:50 36.4 C L 103 H 20 10/07/19 11:40 99 H 119/69 10/07/19 11:20 103 H 124/84 10/07/19 11:00 99 H 120/80 10/07/19 10:40 92 H 117/75 10/07/19 10:20 104 H 117/74 10/07/19 10:00 108 H 129/85 10/07/19 09:44 36.3 C L 106 H 10/07/19 09:40 108 H 129/85 10/07/19 09:25 106 H 122/85 Pulse Ox 10/07/19 20:15 96 10/07/19 19:29 10/07/19 15:04 95 10/07/19 13:55 10/07/19 13:20 10/07/19 13:01 10/07/19 12:40 10/07/19 12:20 10/07/19 12:00 10/07/19 11:50 97 10/07/19 11:40 10/07/19 11:20 10/07/19 11:00 10/07/19 10:40 10/07/19 10:20 10/07/19 10:00 10/07/19 09:44 10/07/19 09:40 10/07/19 09:25 Laboratory Results Short CBC 10/07/19 Range/Units 00:51 WBC 17.66 H D (4.8-10.8) K/uL Hgb 8.3 L (14.0-18.0) g/dL Hct 25.4 L (42-52) % Plt Count 99 L (130-400) K/uL BMP 10/07/19 00:51 Sodium 135 L Potassium 4.4 Chloride 101 Carbon Dioxide 24 BUN 61 H Creatinine 6.97 H* D Glucose 138 H Calcium 7.7 L
[2019-10-08] MEDS: PIPERACILLIN/TAZOBACTAM 3.375 GM in DEXTROSE 5% 100 ML IV SCH ×2 (01:55→14:49)
[2019-10-08] MEDS: RASPBERRY SYRUP 5 ML UDP PO SCH ×4 (04:04→21:35)
[2019-10-08] MEDS: VANCOMYCIN HCL 125 MG/2.5ML SOLN PO SCH ×4 (04:04→21:35)
[2019-10-08 06:31] LABS: Hemoglobin 8.2 g/dL (14.0-18.0); Mean Corpuscular Hgb Conc 31.5 g/dL (32-36); Mean Platelet Volume 11.6 fL (7.4-10.4); Platelet Count 102 K/uL (130-400); RDW Coefficient of Variation 17.5 % (11.5-14.5); RDW Standard Deviation 71.5 fL (36.4-46.3); Red Blood Count 2.28 M/uL (4.7-6.1); White Blood Count 9.81 K/uL (4.8-10.8)
[2019-10-08 06:41] LABS: INR 1.4 (0.9-1.1); Prothrombin Time 13.6 Seconds (9.0-12.0)
[2019-10-08 07:17] LABS: BUN Creatinine Ratio 6.8 (10-20); Calcium 8.7 mg/dl (8.5-10.1); Est GFR (Non-African American) 10.4; Potassium 3.8 mmol/L (3.5-5.1)
[2019-10-08] MEDS: SEVELAMER HCL 800 MG TABLET PO SCH ×2 (08:14→17:02)
[2019-10-08] MEDS: INSULIN ASPART 100 UNITS/ML 3 ML PEN SC SCH ×4 (08:15→20:55)
[2019-10-08] MEDS: INSULIN GLARGINE SOLOSTAR 100 UNITS/ML 3 ML PEN SQ SCH (08:16)
[2019-10-08] MEDS: METOPROLOL SUCC 50MG EXT REL TAB PO SCH (08:17)
[2019-10-08] MEDS: CHOLECALCIFEROL 1,000 UNITS TAB PO SCH (08:17)
[2019-10-08] MEDS: FAMOTIDINE 20 MG TAB PO SCH (08:17)
[2019-10-08] MEDS ORDERED: METOPROLOL SUCC 25MG EXT REL TAB PO SCH (09:00)
--- NOTE | 2019-10-08 15:44 | Hospitalist Progress Note ---
Date of Service October 08, 2019 Assessment & Plan (1) Sepsis: Likely secondary to C. difficile colitis toxin a Gram-positive bacteremia with Enterococcus faecalis and is pansensitive H/O MSSA Bacteremia CXR:No change in reticulonodular interstitial thickening which is likely chronic. Trace pleural effusion. No consolidation to suggest pneumonia. Obtain ECHO--pending Repeat blood Cx: Have been negative Discontinue IV vancomycin Continue IV Zosyn for now Continue p.o. vancomycin for C. difficile Appreciate GI input and recommendation; continue vancomycin for a total of 10 days following discontinuation of systemic antibiotic Clinically a lot better Rectal bleeding In setting of coagulopathy due to Coumadin; C. difficile colitis H/O diverticulosis, doroteo-anal fistula Monitor H&H-remains stable Received vitamin K for increased INR Monitor INR:3.5>>1.7 INR is 1.4 today Will restart Coumadin Hypomagnesemia Secondary to GI losses Replace electrolytes as needed P. 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 S/P IVC filter INR 1.7 Coumadin was on hold for GI bleed Will restart Chronic right-sided heart failure Last EF 60-65%, TTE 2019 Volume status managed through dialysis H/O Non-occlusive CAD H/O Bioprosthetic AVR Carotid artery disease S/P Surgery H/O aspirin allergy Anticoagulation held due to rectal bleeding ESRD on HD Continue hemodialysis Appreciate nephrology input DM II Diet-controlled Last Hb A1C:7.3 Continue insulin therapy while hospitalized Monitor blood glucose levels Chronic anemia Hb at baseline Monitor DVT Px: SCDs Re: rectal bleeding Code Status Full code Disposition PT/OT prior to discharge Subjective 10/08/2019 The patient was seen and examined in the medical floor He denies any symptoms as of today and wants to go home No more diarrhea,no fever and/or chills Review of Systems Review of Systems: All systems reviewed and are unremarkable except as noted below Physical Exam Physical Exam: Lying in bed comfortably Constitutional: well developed and well nourished; no acute distress (sitting in bed on RA dosing) Eyes: PERRL, conjunctivae normal, anicteric sclerae EOM intact bilaterally ENMT: external ear and nose normal, oropharynx normal Ears: no external ear abnormality Nose: no external nose abnormality Neck: no nuchal rigidity Respiratory: normal respiratory effort, lungs clear to auscultation normal respiratory effort Auscultation: lungs clear to auscultation bilaterally, + diminished lung sounds and + crackles (fine, bilateral) Cardiovascular: RRR, no murmur, no edema Rate/Rhythm: regular rate, regular rhythm and + tachycardic Heart Sounds: + murmur Extremities: + edema (1- 2+) and + AV fistula (+ t/b) Gastrointestinal (Abdomen): normal bowel sounds, soft, nontender, no hepatosplenomegaly Inspection/Auscultation: normal bowel sounds Percussion/Palpation: abdomen soft; abdomen nontender Musculoskeletal: Extremities: strength 5/5 throughout Skin: no rashes, warm and dry no jaundice Psychiatric: A+Ox3, euthymic affect Lymphatic: no lymphedema Results & Data Vital Signs (Past 12 Hours) Vital Signs Temp Pulse Pulse Resp BP Pulse Ox 10/08/19 14:30 96 10/08/19 11:57 36.3 C L 105 H 20 119/75 95 10/08/19 08:00 106 H 10/08/19 07:58 36.5 C 105 H 20 117/76 97 10/08/19 07:41 107 H 10/08/19 07:19 107 H 10/08/19 04:05 36.5 C 106 H 20 100/69 95 Laboratory Results Short CBC 10/08/19 Range/Units 06:03 WBC 9.81 (4.8-10.8) K/uL Hgb 8.2 L (14.0-18.0) g/dL Hct 26.0 L (42-52) % Plt Count 102 L (130-400) K/uL BMP 10/08/19 06:03 Sodium 135 L Potassium 3.8 Chloride 98 Carbon Dioxide 27 BUN 33 H Creatinine 4.78 H* D Glucose 135 H Calcium 8.7 Medications Administered Current Inpatient Medications Acetaminophen (Tylenol) 650 mg PO Q4H PRN PRN Reason: Pain or Fever Stop: 11/05/19 09:11 Dextrose (Dextrose 50%) 25 - 50 ml IV UD PRN; Protocol PRN Reason: Hypoglycemia Protocol Stop: 11/05/19 09:11 Famotidine (Pepcid) 20 mg PO [facility] Stop: 11/07/19 08:59 Last Admin: 10/08/19 08:17 Dose: 20 mg Documented by: Glucagon (Glucagen) 1 mg SQ UD PRN; Protocol PRN Reason: Hypoglycemia Protocol Stop: 11/05/19 09:11 Glucose (Dex4 Glucose) 4 - 8 tabs PO UD PRN; Protocol PRN Reason: Hypoglycemia Protocol Stop: 11/05/19 09:11 Glucose (Glucose 40%) 15 - 30 gm PO UD PRN; Protocol PRN Reason: Hypoglycemia Protocol Stop: 11/05/19 09:11 Hydromorphone HCl (Dilaudid) 0.25 mg IV Q3H PRN PRN Reason: Pain Stop: 10/20/19 09:11 Promethazine HCl 12.5 mg/ (Sodium Chloride) 50.5 mls @ 202 mls/hr IV Q6H PRN PRN Reason: Nausea And Vomiting Stop: 11/05/19 09:11 Piperacillin Sod/Tazobactam (Sod 3.375 gm/ Dextrose) 115 mls @ 28.75 mls/hr IV Q12H JAMES; Protocol Stop: 10/21/19 01:59 Last Admin: 10/08/19 14:49 Dose: 28.8 mls/hr Documented by: Insulin Aspart (Novolog Flexpen) 0 units SC ACHS [facility] Stop: 11/05/19 09:11 Last Admin: 10/08/19 12:44 Dose: 4 units Documented by: Insulin Glargine (Lantus Solostar Pen) 5 units SQ DAILY [facility] Stop: 11/06/19 08:59 Last Admin: 10/08/19 08:16 Dose: 5 units Documented by: Metoprolol Succinate (Toprol Xl) 50 mg PO DAILY [facility] Stop: 11/06/19 08:59 Last Admin: 10/08/19 08:17 Dose: 50 mg Documented by: Metoprolol Tartrate (Lopressor) 12.5 mg PO TuThSa@1000 [facility] Stop: 11/08/19 09:59 Miscellaneous (Carbohydrates For Hypoglycemia) 15 - 30 gm PO UD PRN PRN Reason: Hypoglycemia Protocol Stop: 11/05/19 09:11 Miscellaneous Information (Consult) 1 ea N/A UD PRN PRN Reason: Consult Stop: 11/05/19 16:18 Pantoprazole Sodium (Protonix) 40 mg PO DAILY [facility] Stop: 11/06/19 08:59 Last Admin: 10/07/19 13:52 Dose: Not Given Documented by: Raspberry (Raspberry) 5 ml PO Q6H [facility] Stop: 10/20/19 09:59 Last Admin: 10/08/19 10:17 Dose: 5 ml Documented by: Sevelamer HCl (Renagel) 800 mg PO BIDM [facility] Stop: 11/05/19 09:14 Last Admin: 10/08/19 08:14 Dose: 800 mg Documented by: Tramadol HCl (Ultram) 25 mg PO Q4H PRN PRN Reason: Pain Stop: 11/05/19 09:11 Vancomycin HCl (Vancomycin Hcl) 125 mg PO Q6H [facility]; Protocol Stop: 10/16/19 13:44 Last Admin: 10/08/19 10:17 Dose: 125 mg Documented by: Vitamin D (Vitamin D3) 1,000 units PO DAILY [facility] Stop: 11/05/19 09:14 Last Admin: 10/08/19 08:17 Dose: 1,000 units Documented by:
[2019-10-08] MEDS ORDERED: WARFARIN SOD 2.5 MG TAB PO ONE (17:15)
[2019-10-09] MEDS: PIPERACILLIN/TAZOBACTAM 3.375 GM in DEXTROSE 5% 100 ML IV SCH (01:45)
[2019-10-09] MEDS: VANCOMYCIN HCL 125 MG/2.5ML SOLN PO SCH ×4 (03:45→21:51)
[2019-10-09] MEDS: RASPBERRY SYRUP 5 ML UDP PO SCH ×4 (03:46→21:51)
[2019-10-09 06:22] LABS: Hematocrit (blood only) 26.1 % (42-52); Hemoglobin 8.5 g/dL (14.0-18.0); Mean Corpuscular Hemoglobin 36.2 pg (25-34); Mean Corpuscular Hgb Conc 32.6 g/dL (32-36); Mean Corpuscular Volume 111.1 fL (80-100); Mean Platelet Volume 12.4 fL (7.4-10.4); Nucleated RBC # (auto) 0.02 K/uL (0-0); Nucleated RBC % (auto) 0.3 %; Platelet Count 112 K/uL (130-400); RDW Coefficient of Variation 17.5 % (11.5-14.5); RDW Standard Deviation 70.9 fL (36.4-46.3); Red Blood Count 2.35 M/uL (4.7-6.1); White Blood Count 7.94 K/uL (4.8-10.8)
[2019-10-09 06:30] LABS: INR 1.3 (0.9-1.1); Prothrombin Time 13.1 Seconds (9.0-12.0)
[2019-10-09] MEDS ORDERED: EPOETIN ALFA 10,000 UNITS/ML VIAL IV SCH (07:00)
[2019-10-09] MEDS ORDERED: SODIUM CHLORIDE 0.9% 1000ML 1,000 ML IV PRN (07:00)
[2019-10-09 07:05] LABS: BUN Creatinine Ratio 6.9 (10-20); Calcium 8.3 mg/dl (8.5-10.1); Creatinine Clr Calc Pharmacy 10.1 ml/min; Est GFR (African American) 8.8; Est GFR (Non-African American) 7.6; Potassium 3.8 mmol/L (3.5-5.1)
[2019-10-09] MEDS: FAMOTIDINE 20 MG TAB PO SCH (08:39)
[2019-10-09] MEDS: SEVELAMER HCL 800 MG TABLET PO SCH ×2 (08:39→17:22)
[2019-10-09] MEDS: CHOLECALCIFEROL 1,000 UNITS TAB PO SCH (08:39)
[2019-10-09] MEDS: INSULIN ASPART 100 UNITS/ML 3 ML PEN SC SCH ×4 (08:40→21:50)
[2019-10-09] MEDS: INSULIN GLARGINE SOLOSTAR 100 UNITS/ML 3 ML PEN SQ SCH (08:41)
[2019-10-09] MEDS ORDERED: METOPROLOL TARTRATE 25 MG TAB PO SCH (10:00)
--- NOTE | 2019-10-09 13:38 | Hospitalist Progress Note ---
Date of Service October 09, 2019 Assessment & Plan (1) Sepsis: Likely secondary to C. difficile colitis toxin a Gram-positive bacteremia with Enterococcus faecalis and is pansensitive H/O MSSA Bacteremia CXR:No change in reticulonodular interstitial thickening which is likely chronic. Trace pleural effusion. No consolidation to suggest pneumonia. Obtain ECHO--completed but results are pending Repeat blood Cx: Have been negative Discontinue IV vancomycin Continue IV Zosyn for now Continue p.o. vancomycin for C. difficile Appreciate GI input and recommendation; continue vancomycin for a total of 10 days following discontinuation of systemic antibiotic Clinically a lot better and wants to go home Ultrasound-guided peripheral line will be put in today Will get intravenous antibiotic with ampicillin once a day if there is no endocarditis, ampicillin with ceftriaxone once a day if there is endocarditis Rectal bleeding In setting of coagulopathy due to Coumadin; C. difficile colitis H/O diverticulosis, doroteo-anal fistula Monitor H&H-remains stable Received vitamin K for increased INR Monitor INR:3.5>>1.7 INR is 1.4 today Will restart Coumadin INR is not yet therapeutic Will increase Coumadin to 5 mg daily Hypomagnesemia Secondary to GI losses Replace electrolytes as needed P. 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 S/P IVC filter INR 1.7 Coumadin was on hold for GI bleed Chronic right-sided heart failure Last EF 60-65%, TTE 2018 Volume status managed through dialysis H/O Non-occlusive CAD H/O Bioprosthetic AVR Carotid artery disease S/P Surgery H/O aspirin allergy Anticoagulation held due to rectal bleeding ESRD on HD Continue hemodialysis Appreciate nephrology input DM II Diet-controlled Last Hb A1C:7.3 Continue insulin therapy while hospitalized Monitor blood glucose levels Chronic anemia Hb at baseline Monitor DVT Px: SCDs Re: rectal bleeding Code Status Full code Disposition PT/OT prior to discharge He is a [facility] home perticipant Subjective 10/08/2019 The patient was seen and examined in the medical floor He denies any symptoms as of today and wants to go home No more diarrhea,no fever and/or chills 10/09/2019 The patient was seen and examined in medical floor He denies any symptoms whatsoever No fever no chills, no abdominal pain nausea and/or vomiting, no chest pain palpitation He wants to go home this afternoon Review of Systems Review of Systems: All systems reviewed and are unremarkable except as noted below Physical Exam Physical Exam: Lying in bed without any acute symptoms Constitutional: well developed and well nourished; no acute distress (sitting in bed on RA dosing) Eyes: PERRL, conjunctivae normal, anicteric sclerae EOM intact bilaterally ENMT: external ear and nose normal, oropharynx normal Ears: no external ear abnormality Nose: no external nose abnormality Neck: no nuchal rigidity Respiratory: normal respiratory effort Auscultation: lungs clear to auscultation bilaterally, + diminished lung sounds and + crackles (Minimal at the bases) Cardiovascular: Rate/Rhythm: regular rate and regular rhythm Heart Sounds: + murmur Extremities: + edema (1-2+) and + AV fistula (+ t/b) Gastrointestinal (Abdomen): normal bowel sounds, soft, nontender, no hepatosplenomegaly Inspection/Auscultation: normal bowel sounds Percussion/Palpation: abdomen soft; abdomen nontender Musculoskeletal: Extremities: strength 5/5 throughout Skin: no rashes, warm and dry no jaundice Psychiatric: A+Ox3, euthymic affect Lymphatic: no cervical or axillary lymphadenopathy Results & Data Vital Signs (Past 12 Hours) Vital Signs Temp Pulse Pulse Resp BP BP Pulse Ox 10/09/19 13:00 97 H 127/74 10/09/19 12:40 96 H 113/73 10/09/19 12:20 100 H 126/74 10/09/19 12:00 102 H 130/81 10/09/19 11:40 105 H 127/79 10/09/19 11:20 104 H 127/78 10/09/19 11:00 104 H 133/64 10/09/19 10:40 105 H 133/74 10/09/19 10:20 105 H 118/73 10/09/19 10:00 105 H 124/72 10/09/19 09:40 105 H 117/70 10/09/19 09:20 104 H 135/81 10/09/19 09:11 36.4 C L 105 H 109 H 142/86 H 10/09/19 07:27 36.4 C L 109 H 20 135/80 97 10/09/19 07:23 36.4 C L 66 19 151/89 H 96 10/09/19 04:00 36.8 C 108 H 20 115/71 98 Laboratory Results Short CBC 10/09/19 Range/Units 05:50 WBC 7.94 (4.8-10.8) K/uL Hgb 8.5 L (14.0-18.0) g/dL Hct 26.1 L (42-52) % Plt Count 112 L (130-400) K/uL BMP 10/09/19 05:50 Sodium 133 L Potassium 3.8 Chloride 98 Carbon Dioxide 25 BUN 43 H Creatinine 6.19 H* D Glucose 146 H Calcium 8.3 L Cardiac Enzymes 10/09/19 10/09/19 Range/Units 05:50 11:50 Troponin I 0.031 0.027 (0-0.045) ng/ml Medications Administered Current Inpatient Medications Acetaminophen (Tylenol) 650 mg PO Q4H PRN PRN Reason: Pain or Fever Stop: 11/05/19 09:11 Dextrose (Dextrose 50%) 25 - 50 ml IV UD PRN; Protocol PRN Reason: Hypoglycemia Protocol Stop: 11/05/19 09:11 Famotidine (Pepcid) 20 mg PO QAM J[facility] Stop: 11/07/19 08:59 Last Admin: 10/09/19 08:39 Dose: 20 mg Documented by: Glucagon (Glucagen) 1 mg SQ UD PRN; Protocol PRN Reason: Hypoglycemia Protocol Stop: 11/05/19 09:11 Glucose (Dex4 Glucose) 4 - 8 tabs PO UD PRN; Protocol PRN Reason: Hypoglycemia Protocol Stop: 11/05/19 09:11 Glucose (Glucose 40%) 15 - 30 gm PO UD PRN; Protocol PRN Reason: Hypoglycemia Protocol Stop: 11/05/19 09:11 Hydromorphone HCl (Dilaudid) 0.25 mg IV Q3H PRN PRN Reason: Pain Stop: 10/20/19 09:11 Promethazine HCl 12.5 mg/ (Sodium Chloride) 50.5 mls @ 202 mls/hr IV Q6H PRN PRN Reason: Nausea And Vomiting Stop: 11/05/19 09:11 Ampicillin Sodium 2,000 mg/ (Sodium Chloride) 100 mls @ 200 mls/hr IV Q24H JAMES; Protocol Stop: 10/23/19 13:59 Insulin Aspart (Novolog Flexpen) 0 units SC ACHS [facility] Stop: 11/05/19 09:11 Last Admin: 10/09/19 08:40 Dose: 3 units Documented by: Insulin Glargine (Lantus Solostar Pen) 5 units SQ DAILY [facility] Stop: 11/06/19 08:59 Last Admin: 10/09/19 08:41 Dose: 5 units Documented by: Metoprolol Succinate (Toprol Xl) 50 mg PO DAILY [facility] Stop: 11/06/19 08:59 Last Admin: 10/08/19 08:17 Dose: 50 mg Documented by: Metoprolol Tartrate (Lopressor) 12.5 mg PO TuThSa@1000 [facility] Stop: 11/08/19 09:59 Last Admin: 10/09/19 08:41 Dose: Not Given Documented by: Miscellaneous (Carbohydrates For Hypoglycemia) 15 - 30 gm PO UD PRN PRN Reason: Hypoglycemia Protocol Stop: 11/05/19 09:11 Pantoprazole Sodium (Protonix) 40 mg PO DAILY [facility] Stop: 11/06/19 08:59 Last Admin: 10/07/19 13:52 Dose: Not Given Documented by: Raspberry (Raspberry) 5 ml PO Q6H [facility] Stop: 10/20/19 09:59 Last Admin: 10/09/19 10:45 Dose: 5 ml Documented by: Sevelamer HCl (Renagel) 800 mg PO BIDM [facility] Stop: 11/05/19 09:14 Last Admin: 10/09/19 08:39 Dose: 800 mg Documented by: Tramadol HCl (Ultram) 25 mg PO Q4H PRN PRN Reason: Pain Stop: 11/05/19 09:11 Vancomycin HCl (Vancomycin Hcl) 125 mg PO Q6H [facility]; Protocol Stop: 10/16/19 13:44 Last Admin: 10/09/19 10:45 Dose: 125 mg Documented by: Vitamin D (Vitamin D3) 1,000 units PO DAILY [facility] Stop: 11/05/19 09:14 Last Admin: 10/09/19 08:39 Dose: 1,000 units Documented by: Warfarin Sodium (Coumadin) 2.5 mg PO DAILY@1600 [facility] Stop: 11/08/19 15:59
[2019-10-09] MEDS: METOPROLOL SUCC 50MG EXT REL TAB PO SCH (14:10)
[2019-10-09] MEDS: AMPICILLIN 2,000 MG in SODIUM CHLOR 0.9% AD-VAN 100 ML IV SCH (14:42)
[2019-10-09] MEDS ORDERED: WARFARIN SOD 2.5 MG TAB PO SCH (16:00)
[2019-10-09] MEDS ORDERED: WARFARIN SOD 5 MG TAB PO SCH (16:00)
--- NOTE | 2019-10-09 19:56 | Nephrology Progress Note ---
Date of Service October 09, 2019 Assessment & Plan (1) Gram-positive bacteremia: / admission bottles + w/in 24 hrs for enterococcus. he had a staph aureus bacteremia in the summer -per primary service -unlikely to be dialysis related as no catheter -- more likely transmural from c diff/?from bowel ischemia -low threshold for inf dzs/cardiology eval w/ bioprosthetic valve -- TTE reassuring; may need SHYAM depending on how long takes cxs to clear (2) Clostridium difficile infection: -f/u GI recs; cont po vanco (3) ESRD (end stage renal disease) on dialysis: next routine tx on 10/11; unlikely to need further tx before then (4) 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: also w/ component of blood loss from diarrhea, w/ elevated INR > got epo on hd; iron stores adequate Subjective tolerated HD today; not tired; diarrhea slowed; hgb still down trending; bld cxs growing enterococcus; pain controlled; no sob; stable edema Review of Systems Review of Systems: All systems reviewed & are unremarkable except as noted in HPI & below Physical Exam Constitutional: well developed, well nourished and cooperative; no acute distress (lying in bed on RA ) Eyes: EOM intact bilaterally ENMT: Ears: no external ear abnormality Nose: no external nose abnormality Mouth: + dry oral mucous membranes Neck: no nuchal rigidity Respiratory: normal respiratory effort Auscultation: lungs clear to auscultation bilaterally and + diminished lung sounds Cardiovascular: Rate/Rhythm: regular rhythm and + tachycardic Heart Sounds: + murmur Extremities: + edema (1+) and + AV fistula (+ t/b) Gastrointestinal (Abdomen): Inspection/Auscultation: normal bowel sounds Percussion/Palpation: abdomen soft; abdomen nontender Musculoskeletal: Extremities: strength 5/5 throughout Skin: no rashes, warm and dry Neurologic: uribe, fluent speech Psychiatric: A+Ox3, euthymic affect Results & Data Vital Signs (Past 12 Hours) Vital Signs Temp Pulse Pulse Pulse Resp BP BP 10/09/19 19:48 36.6 C 71 18 123/68 10/09/19 15:06 36.6 C 108 H 20 106/64 10/09/19 14:09 104 H 113/69 10/09/19 13:12 36.7 C 101 H 101 H 127/79 127/79 10/09/19 13:00 97 H 127/74 10/09/19 12:40 96 H 113/73 10/09/19 12:20 100 H 126/74 10/09/19 12:00 102 H 130/81 10/09/19 11:40 105 H 127/79 10/09/19 11:20 104 H 127/78 10/09/19 11:00 104 H 133/64 10/09/19 10:40 105 H 133/74 10/09/19 10:20 105 H 118/73 10/09/19 10:00 105 H 124/72 10/09/19 09:40 105 H 117/70 10/09/19 09:20 104 H 135/81 10/09/19 09:11 36.4 C L 105 H 109 H 142/86 H Pulse Ox 10/09/19 19:48 95 10/09/19 15:06 96 10/09/19 14:09 10/09/19 13:12 10/09/19 13:00 10/09/19 12:40 10/09/19 12:20 10/09/19 12:00 10/09/19 11:40 10/09/19 11:20 10/09/19 11:00 10/09/19 10:40 10/09/19 10:20 10/09/19 10:00 10/09/19 09:40 10/09/19 09:20 10/09/19 09:11 Laboratory Results 10/09/19 05:50 10/09/19 05:50
--- NOTE | 2019-10-09 20:14 | Electrocardiogram Report ---
Test Reason : Blood Pressure : / mmHG Vent. Rate : 106 BPM Atrial Rate : 106 BPM P-R Int : 192 ms QRS Dur : 084 ms QT Int : 334 ms P-R-T Axes : 000 -30 039 degrees QTc Int : 443 ms Sinus tachycardia Left axis deviation Nonspecific ST and T wave abnormality Abnormal ECG When compared with ECG of 06-OCT-2019 09:25, Vent. rate has increased BY 35 BPM Confirmed by Adelfo Marsh ([id number] on 10/09/2019 8:13:54 PM Referred By: REFERRED SELF Confirmed By:Adelfo Marsh
--- NOTE | 2019-10-09 23:17 | Electrocardiogram Report ---
Test Reason : Blood Pressure : / mmHG Vent. Rate : 106 BPM Atrial Rate : 105 BPM P-R Int : 000 ms QRS Dur : 086 ms QT Int : 338 ms P-R-T Axes : 000 -27 010 degrees QTc Int : 448 ms Possible Sinus tachycardia Abnormal ECG When compared with ECG of 08-OCT-2019 15:53, No significant change Confirmed by Adelfo Marsh ([id number] on 10/09/2019 11:18:01 PM Referred By: REFERRED SELF Confirmed By:Adelfo Marsh
[2019-10-10] MEDS: RASPBERRY SYRUP 5 ML UDP PO SCH ×2 (03:16→08:57)
[2019-10-10] MEDS: VANCOMYCIN HCL 125 MG/2.5ML SOLN PO SCH ×2 (03:16→08:57)
[2019-10-10 08:07] LABS: INR 1.3 (0.9-1.1); Prothrombin Time 13.5 Seconds (9.0-12.0)
[2019-10-10] MEDS: METOPROLOL SUCC 50MG EXT REL TAB PO SCH (08:57)
[2019-10-10] MEDS: FAMOTIDINE 20 MG TAB PO SCH (08:57)
[2019-10-10] MEDS: SEVELAMER HCL 800 MG TABLET PO SCH (08:57)
[2019-10-10] MEDS: CHOLECALCIFEROL 1,000 UNITS TAB PO SCH (08:57)
[2019-10-10] MEDS: INSULIN GLARGINE SOLOSTAR 100 UNITS/ML 3 ML PEN SQ SCH (08:58)
[2019-10-10] MEDS: INSULIN ASPART 100 UNITS/ML 3 ML PEN SC SCH ×2 (08:58→12:00)
--- NOTE | 2019-10-10 11:51 | Hospitalist Progress Note ---
Date of Service October 10, 2019 Assessment & Plan (1) Sepsis: Likely secondary to C. difficile colitis toxin a Gram-positive bacteremia with Enterococcus faecalis and is pansensitive H/O MSSA Bacteremia CXR:No change in reticulonodular interstitial thickening which is likely chronic. Trace pleural effusion. No consolidation to suggest pneumonia. Obtain ECHO--completed but results are pending Repeat blood Cx: Have been negative Discontinue IV vancomycin Continue IV Zosyn for now Continue p.o. vancomycin for C. difficile Appreciate GI input and recommendation; continue vancomycin for a total of 10 days following discontinuation of systemic antibiotic Clinically a lot better and wants to go home Ultrasound-guided peripheral line will be put in today Will get intravenous antibiotic with ampicillin once a day if there is no endocarditis, ampicillin with ceftriaxone once a day if there is endocarditis TTE-did not show any change compared with prior echocardiogram. Negative for any vegetations He will get intravenous ampicillin for a total of 14 days for enterococcus bacteremia Rectal bleeding-stopped In setting of coagulopathy due to Coumadin; C. difficile colitis H/O diverticulosis, doroteo-anal fistula Monitor H&H-remains stable Received vitamin K for increased INR Monitor INR:3.5>>1.7 INR is 1.4 today Will restart Coumadin INR is not yet therapeutic Will increase Coumadin to 5 mg daily Hypomagnesemia Secondary to GI losses Replace electrolytes as needed P. 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 S/P IVC filter INR is 1.3 today and will get increasing dose of Coumadin Will have Coumadin clinic as an outpatient Chronic right-sided heart failure Last EF 60-65%, TTE 2018 Volume status managed through dialysis H/O Non-occlusive CAD H/O Bioprosthetic AVR Carotid artery disease S/P Surgery H/O aspirin allergy Anticoagulation held due to rectal bleeding ESRD on HD Continue hemodialysis Appreciate nephrology input DM II Diet-controlled Last Hb A1C:7.3 Continue insulin therapy while hospitalized Monitor blood glucose levels Chronic anemia Hb at baseline Monitor DVT Px: SCDs Re: rectal bleeding Code Status Full code Disposition PT/OT prior to discharge He is a [facility] home perticipant Subjective 10/08/2019 The patient was seen and examined in the medical floor He denies any symptoms as of today and wants to go home No more diarrhea,no fever and/or chills 10/09/2019 The patient was seen and examined in medical floor He denies any symptoms whatsoever No fever no chills, no abdominal pain nausea and/or vomiting, no chest pain palpitation He wants to go home this afternoon 10/10/2019 The patient was seen and examined in medical floor He remains stable for the last few days and wants to go home He denies any fever and/or chills and his white counts remain stable He will be going home this afternoon Review of Systems Review of Systems: All systems reviewed and are unremarkable except as noted below Physical Exam Physical Exam: Sitting on a chair without any symptoms Constitutional: well developed, well nourished and + obese; no acute distress (sitting in bed on RA dosing) Eyes: PERRL, conjunctivae normal, anicteric sclerae EOM intact bilaterally ENMT: external ear and nose normal, oropharynx normal Ears: no external ear abnormality Nose: no external nose abnormality Neck: no nuchal rigidity Respiratory: normal respiratory effort, lungs clear to auscultation normal respiratory effort Auscultation: lungs clear to auscultation bilaterally, + diminished lung sounds and + crackles (Minimal at the bases) Cardiovascular: RRR, no murmur, no edema Rate/Rhythm: regular rate and regular rhythm Heart Sounds: + murmur Extremities: + edema (1) and + AV fistula (+ t/b) Gastrointestinal (Abdomen): normal bowel sounds, soft, nontender, no hepatosplenomegaly Inspection/Auscultation: normal bowel sounds Percussion/Palpation: abdomen soft; abdomen nontender Musculoskeletal: Extremities: strength 5/5 throughout Skin: no rashes, warm and dry no jaundice Psychiatric: A+Ox3, euthymic affect Lymphatic: no cervical or axillary lymphadenopathy no lymphedema Results & Data Vital Signs (Past 12 Hours) Vital Signs Temp Pulse Pulse Resp BP Pulse Ox 10/10/19 09:51 105 H 10/10/19 07:47 36.5 C 73 20 131/84 96 10/10/19 03:43 36.5 C 73 19 119/74 96 Laboratory Results Cardiac Enzymes 10/09/19 Range/Units 11:50 Troponin I 0.027 (0-0.045) ng/ml Medications Administered Current Inpatient Medications Acetaminophen (Tylenol) 650 mg PO Q4H PRN PRN Reason: Pain or Fever Stop: 11/05/19 09:11 Dextrose (Dextrose 50%) 25 - 50 ml IV UD PRN; Protocol PRN Reason: Hypoglycemia Protocol Stop: 11/05/19 09:11 Famotidine (Pepcid) 20 mg PO QAM [facility] Stop: 11/07/19 08:59 Last Admin: 10/10/19 08:57 Dose: 20 mg Documented by: Glucagon (Glucagen) 1 mg SQ UD PRN; Protocol PRN Reason: Hypoglycemia Protocol Stop: 11/05/19 09:11 Glucose (Dex4 Glucose) 4 - 8 tabs PO UD PRN; Protocol PRN Reason: Hypoglycemia Protocol Stop: 11/05/19 09:11 Glucose (Glucose 40%) 15 - 30 gm PO UD PRN; Protocol PRN Reason: Hypoglycemia Protocol Stop: 11/05/19 09:11 Hydromorphone HCl (Dilaudid) 0.25 mg IV Q3H PRN PRN Reason: Pain Stop: 10/20/19 09:11 Promethazine HCl 12.5 mg/ (Sodium Chloride) 50.5 mls @ 202 mls/hr IV Q6H PRN PRN Reason: Nausea And Vomiting Stop: 11/05/19 09:11 Ampicillin Sodium 2,000 mg/ (Sodium Chloride) 100 mls @ 200 mls/hr IV Q24H JAMES; Protocol Stop: 10/23/19 13:59 Last Infusion: 10/09/19 16:08 Dose: Infused Documented by: Insulin Aspart (Novolog Flexpen) 0 units SC ACHS [facility] Stop: 11/05/19 09:11 Last Admin: 10/10/19 08:58 Dose: 4 units Documented by: Insulin Glargine (Lantus Solostar Pen) 5 units SQ DAILY [facility] Stop: 11/06/19 08:59 Last Admin: 10/10/19 08:58 Dose: 5 units Documented by: Metoprolol Succinate (Toprol Xl) 50 mg PO DAILY [facility] Stop: 11/06/19 08:59 Last Admin: 10/10/19 08:57 Dose: 50 mg Documented by: Metoprolol Tartrate (Lopressor) 12.5 mg PO TuThSa@1000 [facility] Stop: 11/08/19 09:59 Last Admin: 10/09/19 08:41 Dose: Not Given Documented by: Miscellaneous (Carbohydrates For Hypoglycemia) 15 - 30 gm PO UD PRN PRN Reason: Hypoglycemia Protocol Stop: 11/05/19 09:11 Pantoprazole Sodium (Protonix) 40 mg PO DAILY JAMES Stop: 11/06/19 08:59 Last Admin: 10/07/19 13:52 Dose: Not Given Documented by: Raspberry (Raspberry) 5 ml PO Q6H JAMES Stop: 10/20/19 09:59 Last Admin: 10/10/19 08:57 Dose: 5 ml Documented by: Sevelamer HCl (Renagel) 800 mg PO BIDM [facility] Stop: 11/05/19 09:14 Last Admin: 10/10/19 08:57 Dose: 800 mg Documented by: Tramadol HCl (Ultram) 25 mg PO Q4H PRN PRN Reason: Pain Stop: 11/05/19 09:11 Vancomycin HCl (Vancomycin Hcl) 125 mg PO Q6H [facility]; Protocol Stop: 10/16/19 13:44 Last Admin: 10/10/19 08:57 Dose: 125 mg Documented by: Vitamin D (Vitamin D3) 1,000 units PO DAILY JAMES Stop: 11/05/19 09:14 Last Admin: 10/10/19 08:57 Dose: 1,000 units Documented by: Warfarin Sodium (Coumadin) 5 mg PO DAILY@1600 [facility] Stop: 11/08/19 15:59 Last Admin: 10/09/19 17:17 Dose: 5 mg Documented by:
[2019-10-10] MEDS: AMPICILLIN 2,000 MG in SODIUM CHLOR 0.9% AD-VAN 100 ML IV SCH (11:59)
--- NOTE | 2019-10-11 08:07 | Discharge Summary ---
Date of Service October 11, 2019 Admission HPI Per Admitting Provider History obtained from patient and records. Medical history is significant for chronic right-sided heart failure as per records (EF 60-65%, TTE 2018), non-occlusive CAD, AFlutter sp ablation, recurrent PE/DVT on anticoagulation, hx bioprosthetic AVR, carotid artery disease status post surgery, HTN, ESRD on HD, DM2, diet-controlled, chronic anemia (baseline hemoglobin of 8-9), colonic polyposis, chronic thrombocytopenia Recent confinement May 2019 for L GIB attributed to hemorrhoids. 1 week history of nausea, vomiting, bloody diarrhea symptoms with some abdominal discomfort as per patient. No chest pain, no S OB. Subsequent junky cough symptoms as per patient. No fever, no chills. Hemodialysis cut short 2 days ago as per patient because he was not feeling very well. At the ER, patient received Levaquin and Zosyn for sepsis. 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 difficile colitis, enterococcal bacteremia, end-stage renal disease on hemodialysis, atrial flutter on Coumadin Discharge Exam Constitutional well developed, well nourished and + obese; no acute distress (sitting in bed on RA dosing) Eyes PERRL, conjunctivae normal, anicteric sclerae EOM intact bilaterally ENMT external ear and nose normal, oropharynx normal Ears: no external ear abnormality Nose: no external nose abnormality Neck no nuchal rigidity Respiratory normal respiratory effort, lungs clear to auscultation normal respiratory effort Auscultation: lungs clear to auscultation bilaterally, + diminished lung sounds and + crackles (Minimal at the bases) Cardiovascular RRR, no murmur, no edema Rate/Rhythm: regular rate and regular rhythm Heart Sounds: + murmur Extremities: + edema (1) and + AV fistula (+ t/b) Gastrointestinal (Abdomen) normal bowel sounds, soft, nontender, no hepatosplenomegaly Inspection/Auscultation: normal bowel sounds Percussion/Palpation: abdomen soft; abdomen nontender Musculoskeletal Extremities: strength 5/5 throughout Skin no rashes, warm and dry no jaundice Psychiatric A+Ox3, euthymic affect Lymphatic no cervical or axillary lymphadenopathy no lymphedema Discharge Data Allergies Allergy/AdvReac Type Severity Reaction Status Date / Time aspirin Allergy Unknown . Verified 10/06/19 04:33 salicylates Allergy Unknown UNKNOWN Verified 10/06/19 04:33 Consultations 10/06/19 06:13 ED Decision to Admit Stat 10/06/19 09:12 Consult Gastroenterology Routine Consult Nephrology Routine Ordered Studies 10/06/19 04:24 CT abd pelvis IV con only Urgent Hospital Course (1) Sepsis: Likely secondary to C. difficile colitis toxin a Gram-positive bacteremia with Enterococcus faecalis and is pansensitive H/O MSSA Bacteremia CXR:No change in reticulonodular interstitial thickening which is likely chronic. Trace pleural effusion. No consolidation to suggest pneumonia. Obtain ECHO--completed but results are pending Repeat blood Cx: Have been negative Discontinue IV vancomycin Continue IV Zosyn for now Continue p.o. vancomycin for C. difficile Appreciate GI input and recommendation; continue vancomycin for a total of 10 days following discontinuation of systemic antibiotic Clinically a lot better and wants to go home Ultrasound-guided peripheral line will be put in today Will get intravenous antibiotic with ampicillin once a day if there is no endocarditis, ampicillin with ceftriaxone once a day if there is endocarditis TTE-did not show any change compared with prior echocardiogram. Negative for any vegetations He will get intravenous ampicillin for a total of 14 days for enterococcus bacteremia Rectal bleeding-stopped In setting of coagulopathy due to Coumadin; C. difficile colitis H/O diverticulosis, doroteo-anal fistula Monitor H&H-remains stable Received vitamin K for increased INR Monitor INR:3.5>>1.7 INR is 1.4 today Will restart Coumadin INR is not yet therapeutic Will increase Coumadin to 5 mg daily Hypomagnesemia Secondary to GI losses Replace electrolytes as needed P. 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 S/P IVC filter INR is 1.3 today and will get increasing dose of Coumadin Will have Coumadin clinic as an outpatient Chronic right-sided heart failure Last EF 60-65%, TTE 2018 Volume status managed through dialysis H/O Non-occlusive CAD H/O Bioprosthetic AVR Carotid artery disease S/P Surgery H/O aspirin allergy Anticoagulation held due to rectal bleeding ESRD on HD Continue hemodialysis Appreciate nephrology input DM II Diet-controlled Last Hb A1C:7.3 Continue insulin therapy while hospitalized Monitor blood glucose levels Chronic anemia Hb at baseline Monitor DVT Px: SCDs Re: rectal bleeding Code Status Full code Disposition PT/OT prior to discharge He is a [facility] home perticipant Total Time Total Time Spent Total Time Spent (In Minutes): 35 minutes Total Time Includes: Examination of the Patient, Discharge Planning, Medication Reconciliation and Communication With Other Providers Discharge Plan Discharge Items Patient Disposition: Home - Home Health Services Reason For Visit: LGIB Discharge Diagnosis: Sepsis secondary to C. difficile colitis, enterococcal bacteremia, end-stage renal disease on hemodialysis, atrial flutter on Coumadin Condition on Discharge: Good Activity: Resume your previous activity Non-emergency contact: Primary Care Provider Call non-emergency contact if: you have any medication questions and your symptoms worsen Follow-up/Referrals: Zach Gooden MD [Primary Care Provider] - 10/14/19 2:45 pm Diet: Carb Consistent or DM2 and Low Sodium (2gm) Fluids: 1200ml (5 cups) Addtl Attending Provider Instructions: Continue dialysis as an outpatient Finish the course of antibiotic Follow-up with coagulation clinic on Sunday Pending Studies at Discharge: No Stand-Alone Forms: My Clctin, Smoking Cessation Medications and DC Order Prescriptions: New warfarin [Coumadin] 5 mg Tablet 5 mg PO DAILY@1600 30 Days Qty: 30 RF: 0 ampicillin sodium 2 gram recon soln 2 gm IV DAILY Qty: 10 RF: 0 Lactinex 1 million cell tablet,chewable 1 tab PO BID Qty: 30 RF: 0 vancomycin 125 mg capsule 125 mg PO Q6H Qty: 24 RF: 0 Continued metoprolol succinate 50 mg Tablet Extended Release 24 Hr 50 mg PO DAILY RF: 0 omega [id number] oil [Fish Oil] 1,000 mg (120 mg-180 mg) Capsule 1 cap PO DAILY RF: 0 metoprolol tartrate 25 mg tablet 12.5 mg PO 3XWK RF: 0 acetaminophen [Tylenol Extra Strength] 500 mg Tablet 500 mg PO Q6H PRN (Reason: Pain) RF: 0 omeprazole 20 mg capsule,delayed release(DR/EC) 20 mg PO DAILY RF: 0 cholecalciferol (vitamin D3) [Vitamin D3] 1,000 unit Capsule 1,000 unit PO DAILY RF: 0 Sherley-Neeraj 0.8 mg tablet 1 tab PO DAILY RF: 0 fluticasone propionate [Flonase Allergy Relief] 50 mcg/actuation [place],Suspension 1 spray INTRANASAL DAILY PRN (Reason: Nasal Congestion) RF: 0 docusate sodium 100 mg Tablet 100 mg PO BID PRN (Reason: Constipation) RF: 0 sevelamer carbonate 800 mg tablet 800 mg PO BIDM RF: 0 Discontinued warfarin [Coumadin] 5 mg tablet 2.5 mg PO DAILY RF: 0 Discharge Orders: Discharge Order (Routine); Ordered 10/10/19 Ordered By: Gerard Lancaster Admission Data Admit Date/Time: 10/06/19 06:59 Attending Provider: Gerard Lancaster Admit Provider: Caden Ortiz Primary Care Provider: Zach Gooden Other Providers: Caden Ortiz ; Winston Rios ; Ashly Myrick ; Khoa Pradhan ; Maddie Armijo ; Abby Puente ; Bhavana Cason ; Chet Barnes ; [facility] Other Interventions: Discharge Summary Assessment (RN) Last Done: 10/10/19 12:15 DC Date/Time DO NOT enter until pt leaves facility: 10/10/19 12:59
== END 2019-10-10 12:59 | disposition home health service (06) | DRG 871 ==
LOC: ED 03:56 → 2W 06:59 → SUATTDRO 06:59 → 2W 08:15

== ENCOUNTER 2019-10-28 16:25 | Inpatient (IN) ==
[2019-10-28] MEDS ORDERED: CEFEPIME 2,000 MG/20 ML VIAL IV STA (16:50)
[2019-10-28] MEDS ORDERED: ONDANSETRON INJ 2 MG/ML 2 ML VIAL IV STA (16:52)
--- NOTE | 2019-10-28 17:15 | XRay Report ---
XR chest 1V portable CLINICAL HISTORY: SEPSIS COMPARISON STUDY: 10/06/2019 FINDINGS: The cardiac and mediastinal contours remain stable. There are postsurgical changes of a mid line sternotomy and valvular replacement. There is a suspected trace left pleural effusion. There is basilar reticulonodular interstitial thickening, minimally improved.[ IMPRESSION: 1. Suspected slight improvement in the previously identified reticulonodular interstitial thickening. ACT 112: Negative or not required by law. Electronically signed by: Justice Gutierres M.D. 10/28/2019 5:13 PM
[2019-10-28 18:29] LABS: Influenza A virus by PCR Neg for Influ A (Neg); Influenza B virus by PCR Neg for Influ B (Neg)
[2019-10-28 19:03] LABS: Hemoglobin 9.3 g/dL (14.0-18.0); Mean Corpuscular Hemoglobin 36.9 pg (25-34); Mean Corpuscular Hgb Conc 32.1 g/dL (32-36); Mean Corpuscular Volume 115.1 fL (80-100); Mean Platelet Volume 11.3 fL (7.4-10.4); Platelet Count 168 K/uL (130-400); RDW Coefficient of Variation 18.2 % (11.5-14.5); RDW Standard Deviation 75.6 fL (36.4-46.3); Red Blood Count 2.52 M/uL (4.7-6.1)
[2019-10-28 19:21] LABS: INR 2.5 (0.9-1.1); Partial Thromboplastin Ratio 1.8
[2019-10-28] MEDS: metroNIDAZOLE 500 MG/100 ML BAG IV SCH (19:30)
[2019-10-28 19:31] LABS: Basophils # (auto) 0.04 K/uL (0-0.2); Basophils % (auto) 0.2 %; Eosinophils # (auto) 0.03 K/uL (0-0.5); Eosinophils % (auto) 0.2 %; Immature Granulocytes # (auto) 0.11 K/uL (0.00-0.02); Immature Granulocytes % (auto) 0.6 %; Lymphocytes # (auto) 1.68 K/uL (1.2-3.4); Lymphocytes % (auto) 9.1 %; Macrocytosis Present; Monocytes # (auto) 0.99 K/uL (0.11-0.59); Monocytes % (auto) 5.4 %; Neutrophils # (auto) 15.55 K/uL (1.4-6.5); Neutrophils % (auto) 84.5 %
[2019-10-28 19:32] LABS: Partial Thromboplastin Time 49.2 Seconds (21.0-31.0)
[2019-10-28 19:37] LABS: Albumin Globulin Ratio 0.4 (0.9-2); Albumin Level 2.6 gm/dl (3.4-5.0); BUN Creatinine Ratio 7.3 (10-20); Bilirubin,Total 0.4 mg/dl (0.2-1); Calcium 8.7 mg/dl (8.5-10.1); Creatinine Clr Calc Pharmacy 7.4 ml/min; Est GFR (African American) 6.1; Est GFR (Non-African American) 5.3; Potassium 3.9 mmol/L (3.5-5.1); Total Protein 8.6 gm/dl (6.4-8.2); Troponin I 0.017 ng/ml (0-0.045)
--- NOTE | 2019-10-28 22:43 | Emergency Department Note ---
Entered by Jodie Albert acting as a scribe for History of Present Illness General Chief complaint: Illness Stated complaint: WEAKNESS, DIARRHEA Time Seen by Provider: 10/28/19 16:41 Source: patient and family () History of Present Illness Onset (ago): day(s) (2) Location: abdomen Pain Consistency: + constant Quality: + other (nausea) Associated symptoms: + cough, + nausea/vomiting (negative vomiting) and + other (abdominal pain, back pain, diarrhea); no fever/chills The patient is a 84 year old male who presents to the Emergency Room with complaints of constant nausea beginning 2 days ago. The patient reports abdominal pain, back pain and a cough beginning a couple of days ago. He reports diarrhea beginning yesterday. He denies blood in his diarrhea. The patient denies fever and vomiting. The patient's reports the patient is always cold and frequently shaking. The patient notes he lives at home with his . He states he is able to walk on his own with a walker. The patient states he has dialysis 3 days per week. He states he last had dialysis 5 days ago. He states he was scheduled for it today, but was to sick to go. The patient reports a history of a heart valve replacement. The patient's states he finished his IV ampicillin but not his oral vancomycin. The patient was discharged from this hospital on October 11. The patient was admitted for sepsis secondary to C. diff. The patient had enterococcal bacteremia. He was discharged on oral vancomycin and IV ampicillin. Home Medications Home Medications Medication Instructions Recorded Confirmed Type acetaminophen [Tylenol Extra 500 mg PO Q6H PRN 06/14/18 10/28/19 History Strength] cholecalciferol (vitamin D3) 1,000 unit PO DAILY 06/14/18 10/28/19 History [Vitamin D3] omeprazole 20 mg PO DAILY 06/14/18 10/28/19 History Sherley-Neeraj 1 tab PO DAILY 03/18/19 10/28/19 History docusate sodium 100 mg PO BID PRN 03/18/19 10/28/19 History fluticasone propionate [Flonase 1 spray INTRANASAL DAILY PRN 03/18/19 10/28/19 History Allergy Relief] sevelamer carbonate 800 mg PO BIDM 03/18/19 10/28/19 History metoprolol succinate 50 mg PO DAILY 05/21/19 10/28/19 History omega 5-vep-yuq-fish oil [Fish Oil] 1 cap PO DAILY 05/21/19 10/28/19 History metoprolol tartrate 12.5 mg PO 3XWK 10/06/19 10/28/19 History Lactobacillus acidoph-L.bulgar 1 tab PO BID #30 tab 10/10/19 10/28/19 Rx [Lactinex] ampicillin sodium 2 gm IV DAILY #10 ea 10/10/19 10/28/19 Rx vancomycin 125 mg PO Q6H #24 cap 10/10/19 10/28/19 Rx warfarin [Coumadin] 5 mg PO DAILY@1600 30 Days #30 tab 10/10/19 10/28/19 Rx prednisone 10 mg PO DAILY 10/28/19 10/28/19 History ranitidine HCl 150 mg PO DAILY 10/28/19 10/28/19 History vitamin B complex 1 tab PO DAILY 10/28/19 10/28/19 History Allergies Allergy/AdvReac Type Severity Reaction Status Date / Time aspirin Allergy Unknown . 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) Type 2 diabetes mellitus (Chronic) Surgical History H/O carotid endarterectomy (Chronic) "2008" H/O removal of testicle (Chronic) H/O superior vena cava filter placement (Chronic) History of hydrocelectomy (Chronic) History of total hip replacement (Chronic) S/P ablation of atrial flutter (Chronic) S/P aortic valve replacement (Chronic) "bio prosthetic" S/P cardiac cath (Chronic) "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 Feels Safe at Home: Yes Smoking Status: Never smoker Second Hand Exposure: Yes ; Hx Alcohol Use: No Hx Substance Use: No Review of Systems See HPI for pertinent positives & negatives. and A total of 10 systems reviewed and were otherwise negative Physical Exam Vital Signs Vital Signs - 24 hr 10/28/19 16:32 10/28/19 16:34 10/28/19 17:02 Temperature 37.1 C Temperature Source Oral Pulse Rate 91 H 102 H 84 Pulse Rate [Bilateral Apical] Pulse Rate from SpO2 Sensor 92 H 90 Respiratory Rate 19 18 18 Blood Pressure 115/74 155/74 H Blood Pressure [Left Arm] Blood Pressure [Right Arm] Blood Pressure Mean 89 101 Blood Pressure Mean [Left Arm] Blood Pressure Mean [Right Arm] Pulse Oximetry 90 96 Oxygen Delivery Method Room Air Sepsis Recent Fever Within 48 Hours No Sepsis Action Taken by Nursing No Action Required 10/28/19 17:30 10/28/19 17:41 10/28/19 17:42 Temperature Temperature Source Pulse Rate 90 88 Pulse Rate [Bilateral Apical] Pulse Rate from SpO2 Sensor Respiratory Rate 17 17 Blood Pressure 172/65 H Blood Pressure [Left Arm] Blood Pressure [Right Arm] Blood Pressure Mean 90 Blood Pressure Mean [Left Arm] Blood Pressure Mean [Right Arm] Pulse Oximetry 95 Oxygen Delivery Method Room Air Sepsis Recent Fever Within 48 Hours Sepsis Action Taken by Nursing 10/28/19 18:12 10/28/19 18:30 10/28/19 18:46 Temperature Temperature Source Pulse Rate 98 H 90 87 Pulse Rate [Bilateral Apical] Pulse Rate from SpO2 Sensor Respiratory Rate 19 17 20 Blood Pressure 139/51 L Blood Pressure [Left Arm] Blood Pressure [Right Arm] Blood Pressure Mean 75 Blood Pressure Mean [Left Arm] Blood Pressure Mean [Right Arm] Pulse Oximetry Oxygen Delivery Method Sepsis Recent Fever Within 48 Hours Sepsis Action Taken by Nursing 10/28/19 19:25 10/28/19 20:41 10/28/19 23:06 Temperature Temperature Source Pulse Rate Pulse Rate [Bilateral Apical] 79 69 71 Pulse Rate from SpO2 Sensor Respiratory Rate 20 20 20 Blood Pressure Blood Pressure [Left Arm] 124/56 L Blood Pressure [Right Arm] 122/56 L 110/58 L 131/53 L Blood Pressure Mean Blood Pressure Mean [Left Arm] 78 Blood Pressure Mean [Right Arm] 78 75 79 Pulse Oximetry 98 98 92 Oxygen Delivery Method Room Air Room Air Room Air Sepsis Recent Fever Within 48 Hours Sepsis Action Taken by Nursing GENERAL: Patient is in no acute distress. HEENT: No acute trauma, normocephalic atraumatic, mucous membranes moist, no nasal congestion, no scleral icterus. NECK: No stridor, no adenopathy, no meningismus, trachea is midline. LUNGS: Clear to auscultation bilaterally, no wheeze, no rhonchi, breath sounds equal. HEART: 2/6 systolic murmur, regular rate and rhythm. ABDOMEN: Soft, nontender, bowel sounds positive, no hernias, no peritonitis. EXTREMITIES: No cyanosis, full range of motion of all the joints without pain or difficulty, no signs for acute trauma. Moderate bilateral pedal edema. Fistula in left upper extremity. NEUROLOGIC: Oriented x 3, no acute motor or sensory deficits, no focal weakness. SKIN: No rash, no jaundice, no diaphoresis. Course Course 164: Past medical records reviewed. The patient was evaluated in room B09. A complete history and physical exam was performed. 2000: Upon reevaluation, I discussed findings and results with the patient. He verbalized agreement of the treatment plan. I spoke with Dr. Cisneros of the [facility]. The patient will be evaluated for further management and care. Administered Medications Metronidazole (Flagyl) 500 mg in 100 mls @ 100 mls/hr IV Q8H JAMES Stop: 11/07/19 19:14 Last Infusion: 10/28/19 20:57 Dose: 0 mls/hr Documented by: [id number] Admin: 10/28/19 19:30 Dose: 100 mls/hr Documented by: [id number] Discontinued Medications Cefepime HCl (Maxipime) 2,000 mg in 20 mls @ 5 mls/min IV NOW STA; Protocol Stop: 10/28/19 16:53 Last Admin: 10/28/19 18:43 Dose: 5 mls/min Documented by: [id number] Ondansetron HCl (Zofran) 4 mg IV NOW STA Stop: 10/28/19 16:53 Last Admin: 10/28/19 18:43 Dose: 4 mg Documented by: [id number] Medical Decision Making Differential Diagnosis Differential Diagnosis: C. diff., pneumonia, AR, sepsis, anemia, bacteremia, electrolyte imbalance Medical Records Attestation: I reviewed the patient's medical records. Home Medications Current Medication List: was personally reviewed by me Laboratory Data Attestation: I reviewed the patient's lab results. Result diagrams: 10/28/19 18:43 10/28/19 18:43 Lab Results 10/28/19 10/28/19 10/28/19 Range/Units 17:10 18:30 18:43 WBC 18.40 H (4.8-10.8) K/uL RBC 2.52 L (4.7-6.1) M/uL Hgb 9.3 L (14.0-18.0) g/dL Hct 29.0 L (42-52) % MCV 115.1 H (80-100) fL MCH 36.9 H (25-34) pg MCHC 32.1 (32-36) g/dL RDW Std Deviation 75.6 H (36.4-46.3) fL RDW Coeff of Elvia 18.2 H (11.5-14.5) % Plt Count 168 (130-400) K/uL MPV 11.3 H (7.4-10.4) fL Immature Gran % (Auto) 0.6 % Neut % (Auto) 84.5 % Lymph % (Auto) 9.1 % Perry % (Auto) 5.4 % Eos % (Auto) 0.2 % Baso % (Auto) 0.2 % Immature Gran # (Auto) 0.11 H (0.00-0.02) K/uL Neut # (Auto) 15.55 H (1.4-6.5) K/uL Lymph # (Auto) 1.68 (1.2-3.4) K/uL Perry # (Auto) 0.99 H (0.11-0.59) K/uL Eos # (Auto) 0.03 (0-0.5) K/uL Baso # (Auto) 0.04 (0-0.2) K/uL Macrocytosis Present PT (9.0-12.0) Seconds INR (0.9-1.1) APTT (21.0-31.0) Seconds PTT Ratio Sodium (136-145) mmol/L Potassium (3.5-5.1) mmol/L Chloride (98-107) mmol/L Carbon Dioxide (21-32) mmol/L Anion Gap (3-11) BUN (7-18) mg/dl Creatinine (0.6-1.4) mg/dl Est Cr Clr Drug Dosing ml/min Est GFR ( Amer) Est GFR (Non-Af Amer) BUN/Creatinine Ratio (10-20) Glucose (70-99) mg/dl Lactate 2.8 H* (0.4-2.0) mmol/L Calcium (8.5-10.1) mg/dl Magnesium (1.8-2.4) mg/dl Total Bilirubin (0.2-1) mg/dl AST (15-37) U/L ALT (12-78) U/L Alkaline Phosphatase (45-117) U/L Troponin I (0-0.045) ng/ml Total Protein (6.4-8.2) gm/dl Albumin (3.4-5.0) gm/dl Globulin (2.5-4.0) gm/dl Albumin/Globulin Ratio (0.9-2) Procalcitonin (0-0.5) ng/ml Influenza Type A (PCR) Neg for Influ A (Neg) Influenza Type B (PCR) Neg for Influ B (Neg) 10/28/19 10/28/19 10/28/19 Range/Units 18:43 18:43 18:43 WBC (4.8-10.8) K/uL RBC (4.7-6.1) M/uL Hgb (14.0-18.0) g/dL Hct (42-52) % MCV (80-100) fL MCH (25-34) pg MCHC (32-36) g/dL RDW Std Deviation (36.4-46.3) fL RDW Coeff of Elvia (11.5-14.5) % Plt Count (130-400) K/uL MPV (7.4-10.4) fL Immature Gran % (Auto) % Neut % (Auto) % Lymph % (Auto) % Perry % (Auto) % Eos % (Auto) % Baso % (Auto) % Immature Gran # (Auto) (0.00-0.02) K/uL Neut # (Auto) (1.4-6.5) K/uL Lymph # (Auto) (1.2-3.4) K/uL Perry # (Auto) (0.11-0.59) K/uL Eos # (Auto) (0-0.5) K/uL Baso # (Auto) (0-0.2) K/uL Macrocytosis PT 24.0 H (9.0-12.0) Seconds INR 2.5 H (0.9-1.1) APTT 49.2 H* (21.0-31.0) Seconds PTT Ratio 1.8 Sodium 135 L (136-145) mmol/L Potassium 3.9 (3.5-5.1) mmol/L Chloride 97 L (98-107) mmol/L Carbon Dioxide 26 (21-32) mmol/L Anion Gap 12.0 H (3-11) BUN 61 H (7-18) mg/dl Creatinine 8.36 H* (0.6-1.4) mg/dl Est Cr Clr Drug Dosing 7.4 ml/min Est GFR ( Amer) 6.1 Est GFR (Non-Af Amer) 5.3 BUN/Creatinine Ratio 7.3 L (10-20) Glucose 160 H (70-99) mg/dl Lactate (0.4-2.0) mmol/L Calcium 8.7 (8.5-10.1) mg/dl Magnesium 2.0 (1.8-2.4) mg/dl Total Bilirubin 0.4 (0.2-1) mg/dl AST 14 L (15-37) U/L ALT 14 (12-78) U/L Alkaline Phosphatase 115 (45-117) U/L Troponin I 0.017 (0-0.045) ng/ml Total Protein 8.6 H (6.4-8.2) gm/dl Albumin 2.6 L (3.4-5.0) gm/dl Globulin 6.0 H (2.5-4.0) gm/dl Albumin/Globulin Ratio 0.4 L (0.9-2) Procalcitonin 0.87 H (0-0.5) ng/ml Influenza Type A (PCR) (Neg) Influenza Type B (PCR) (Neg) 10/28/19 Range/Units 20:18 WBC (4.8-10.8) K/uL RBC (4.7-6.1) M/uL Hgb (14.0-18.0) g/dL Hct (42-52) % MCV (80-100) fL MCH (25-34) pg MCHC (32-36) g/dL RDW Std Deviation (36.4-46.3) fL RDW Coeff of Elvia (11.5-14.5) % Plt Count (130-400) K/uL MPV (7.4-10.4) fL Immature Gran % (Auto) % Neut % (Auto) % Lymph % (Auto) % Perry % (Auto) % Eos % (Auto) % Baso % (Auto) % Immature Gran # (Auto) (0.00-0.02) K/uL Neut # (Auto) (1.4-6.5) K/uL Lymph # (Auto) (1.2-3.4) K/uL Perry # (Auto) (0.11-0.59) K/uL Eos # (Auto) (0-0.5) K/uL Baso # (Auto) (0-0.2) K/uL Macrocytosis PT (9.0-12.0) Seconds INR (0.9-1.1) APTT (21.0-31.0) Seconds PTT Ratio Sodium (136-145) mmol/L Potassium (3.5-5.1) mmol/L Chloride (98-107) mmol/L Carbon Dioxide (21-32) mmol/L Anion Gap (3-11) BUN (7-18) mg/dl Creatinine (0.6-1.4) mg/dl Est Cr Clr Drug Dosing ml/min Est GFR ( Amer) Est GFR (Non-Af Amer) BUN/Creatinine Ratio (10-20) Glucose (70-99) mg/dl Lactate 1.5 (0.4-2.0) mmol/L Calcium (8.5-10.1) mg/dl Magnesium (1.8-2.4) mg/dl Total Bilirubin (0.2-1) mg/dl AST (15-37) U/L ALT (12-78) U/L Alkaline Phosphatase (45-117) U/L Troponin I (0-0.045) ng/ml Total Protein (6.4-8.2) gm/dl Albumin (3.4-5.0) gm/dl Globulin (2.5-4.0) gm/dl Albumin/Globulin Ratio (0.9-2) Procalcitonin (0-0.5) ng/ml Influenza Type A (PCR) (Neg) Influenza Type B (PCR) (Neg) Imaging Data Radiologist's Impression: Radiology results as stated below per my review and the radiologist's interpretation: XR chest 1V portable CLINICAL HISTORY: SEPSIS COMPARISON STUDY: 10/06/2019 FINDINGS: The cardiac and mediastinal contours remain stable. There are postsurgical changes of a midline sternotomy and valvular replacement. There is a suspected trace left pleural effusion. There is basilar reticulonodular int erstitial thickening, minimally improved.[ IMPRESSION: 1. Suspected slight improvement in the previously identified reticulonodular interstitial thickening. ACT 112: Negative or not required by law. Electronically signed by: Justice Gutierres M.D. 10/28/2019 5:13 PM ECG Data Attestation: I personally reviewed and interpreted this ECG as follows: Indication: + weakness Rate (beats per minute): 88 Rhythm: + sinus rhythm ECG Intervals/blocks: + First degree AV block and + Normal QT-c (421) ECG ST segments: no ST elevation ECG Findings: + PACs Comparison ECG Date: from (10/09/2019) Change: the following changes noted (similar but rate has decreased today) Blood Pressure Blood Pressure Findings: Elevated blood pressure Blood Pressure Disposition: further management by hospitalist CLAIRE Narrative There is a moderate leukocytosis at 18,000, this is consistent with infection. The patient is anemic but this is baseline looking back at previous testing. There was a normal platelet count. INR is elevated consistent with his Coumadin use. Creatinine is elevated however, he is regularly dialyzed so this elevation is not unexpected. The potassium was normal. Lactic acid level was not elevated making severe sepsis less likely. No concerning liver enzyme elevation. EKG showed a sinus tachycardia, no acute ischemia. Cardiac enzyme testing x1 was not consistent with acute cardiac injury. Influenza testing was negative. Chest film did not show any evidence for pneumonia. On exam, there was no real abdominal discomfort. The patient presents tachycardic and weak. He is currently on oral vancomycin for a C. difficile infection. He was just in the hospital for bacteremia. The patient does meet criteria for sepsis. I do think further work-up in the hospital is warranted. Blood cultures have been ordered and are pending. The patient was given IV Flagyl as additional coverage for his C. difficile. He was given IV Zofran for nausea, IV cefepime as antibiotic coverage. No IV fluids were given as the patient is a dialysis patient and had missed his dialysis today. I talked to the patient about a hospital stay, he is agreeable to staying. The cause for his presentation is not completely clear but certainly, I am concerned about recurrent bacteremia or worsening of his C. difficile. I spoke to case management. The on-call hospitalist has been consulted. Continuous Cardiac Monitoring: An order was placed for continuous cardiac monitoring. The monitor shows a rate of 77 with sinus rhythm with PACs. Impression & Plan Weakness, Leukocytosis, Diarrhea, Dehydration, C. difficile colitis Discharge Plan Visit Data Chief Complaint: Illness Stated Complaint: WEAKNESS, DIARRHEA ED Provider: Guilherme Hahn Discharge Problem: Weakness, Leukocytosis, Diarrhea, Dehydration, C. difficile colitis Patient Disposition: Being Evaluated by Hospitalist Forms Stand Alone Forms: My [facility] Prescriptions Prescriptions: No Action metoprolol succinate 50 mg Tablet Extended Release 24 Hr 50 mg PO DAILY RF: 0 omega 2-[id number]-fish oil [Fish Oil] 1,000 mg (120 mg-180 mg) Capsule 1 cap PO DAILY RF: 0 metoprolol tartrate 25 mg tablet 12.5 mg PO [id number] RF: 0 warfarin [Coumadin] 5 mg Tablet 5 mg PO DAILY@1600 30 Days Qty: 30 RF: 0 ampicillin sodium 2 gram recon soln 2 gm IV DAILY Qty: 10 RF: 0 Lactinex 1 million cell tablet,chewable 1 tab PO BID Qty: 30 RF: 0 vancomycin 125 mg capsule 125 mg PO Q6H Qty: 24 RF: 0 ranitidine HCl 150 mg Tablet 150 mg PO DAILY RF: 0 vitamin B complex Tablet 1 tab PO DAILY RF: 0 prednisone 10 mg Tablet 10 mg PO DAILY RF: 0 acetaminophen [Tylenol Extra Strength] 500 mg Tablet 500 mg PO Q6H PRN (Reason: Pain) RF: 0 omeprazole 20 mg capsule,delayed release(DR/EC) 20 mg PO DAILY RF: 0 cholecalciferol (vitamin D3) [Vitamin D3] 1,000 unit Capsule 1,000 unit PO DAILY RF: 0 Sherley-Neeraj 0.8 mg tablet 1 tab PO DAILY RF: 0 fluticasone propionate [Flonase Allergy Relief] 50 mcg/actuation [employer] 1 spray INTRANASAL DAILY PRN (Reason: Nasal Congestion) RF: 0 docusate sodium 100 mg Tablet 100 mg PO BID PRN (Reason: Constipation) RF: 0 sevelamer carbonate 800 mg tablet 800 mg PO BIDM RF: 0 Referrals Referrals: Zach Gooden MD [Primary Care Provider] - Discharge Problem: Leukocytosis Qualifiers: Leukocytosis type: unspecified Qualified Code(s): D72.829 - Elevated white blood cell count, unspecified Diarrhea Qualifiers: Diarrhea type: unspecified type Qualified Code(s): R19.7 - Diarrhea, unspecified The scribe's documentation has been prepared under my direction and personally reviewed by me in its entirety. I confirm that the note above accurately reflects all work, treatment, procedures, and medical decision making performed by me.
[2019-10-29] MEDS ORDERED: FLUTICASONE PROPIONATE NA SPR 16 GM BTL PRN (02:23)
[2019-10-29] MEDS ORDERED: NITROGLYCERIN SL 0.4 MG/TAB TAB SL PRN (02:23)
[2019-10-29] MEDS ORDERED: metroNIDAZOLE 500 MG/100 ML BAG IV SCH (02:23)
[2019-10-29] MEDS ORDERED: ACETAMINOPHEN 325 MG TAB PO PRN (02:23)
[2019-10-29] MEDS ORDERED: ONDANSETRON INJ 2 MG/ML 2 ML VIAL IV PRN (02:23)
--- NOTE | 2019-10-29 02:43 | History and Physical Report ---
DATE OF ADMISSION: 10/28/2019 CHIEF COMPLAINT: Nausea, vomiting and diarrhea and not feeling well. 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 The patient was recently in the hospital, admitted on 10/06/2019 and discharged on 10/11/2019. Admitted for nausea, vomiting and bloody diarrhea, abdominal pain and found to have bacteremia with enterococcus positive for C. diff, was discharged on IV ampicillin to complete 14-day course of antibiotics and to continue p.o. vancomycin 10 days post antibiotics. He has completed the IV antibiotics, currently on p.o. vancomycin. Says since yesterday, he is having nausea, vomiting and diarrhea. Few episodes of diarrhea, no blood in stools or black stools and he is not able to eat anything. Whatever he is eating, he is vomiting up. Denies any abdominal pain. Denies any fever, chills. Feeling very sick, weak came to the ER.He was supposed to go to dialysis today but he felt so weak that he could not go to dialysis. In the ER, he is hemodynamically stable. Did have significant leukocytosis of 18.4. His INR is 2.5, creatinine of 8.3, potassium of 3.9. Lactate is 1.5. Influenza A and B, PCR negative. Procalcitonin 0.8. Chest x-ray was okay. Currently, resting comfortably and hemodynamically stable. Denies any chest pain. No shortness of breath, no cough, no headache, no blurred vision, no earache, no runny nose, no sore throat. He has lower extremity edema. He says this worsens on and off and improves with dialysis. ALLERGIES: TO ASPIRIN AND SALICYLATES. PAST MEDICAL HISTORY: As mentioned above. PAST SURGICAL HISTORY: Carpal tunnel surgery, colonoscopy, drainage of rectal abscess, cyst removed from the tailbone, IVC filter placement, repair of hydrocele, replacement of aortic valve with prosthetic valve, right carotid endarterectomy, right total hip replacement. MEDICATIONS: The patient is on lactobacillus 1 tablet b.i.d., vancomycin 125 mg p.o. q. 6 hours, Renvela 800 mg p.o. a.c., omeprazole 20 mg p.o. daily, Toprol-XL 50 mg p.o. daily after dialysis on dialysis days, Lopressor 12.5 mg 1 hour prior to dialysis, vitamin D 1,000 units p.o. daily, prednisone 10 mg p.o. daily, B complex 1 tablet daily, Zantac 150 mg p.o. daily after dialysis, loperamide 2 mg p.r.n., warfarin 5 mg daily or as directed, Tylenol 500 mg p.o. q. 6 hours p.r.n., Flonase 1 spray into nostrils daily, Colace 100 mg p.o. b.i.d. p.r.n., omega 3 fatty acids 1 g p.o. daily. FAMILY HISTORY: Significant for brother has stroke, hypertension. Mother has hypertension. Mother has chronic kidney disease. SOCIAL HISTORY: and lives with his . No smoking, no alcohol, no drug use. REVIEW OF SYMPTOMS: As per HPI. Rest of review of symptoms negative. PHYSICAL EXAMINATION: GENERAL: The patient is of moderate built, not in acute distress. VITAL SIGNS: Temperature 37.1, pulse 71, respiratory rate 20, blood pressure 131/53, oxygen 92% on room air. HEENT: No pallor, no icterus. Pupils equal, round, reactive to light. NECK: No JVD, no neck masses, no carotid bruit. CARDIOVASCULAR: S1, S2 heard. Regular rate and rhythm. No murmur, no gallop. RESPIRATORY SYSTEM: Normal AP diameter. No accessory muscle use. No wheezing, no crackles. ABDOMEN: Soft, bowel sounds present. Mild periumbilical discomfort. No guarding, no rigidity, no distention. CENTRAL NERVOUS SYSTEM: Cranial nerves II-XII grossly intact. Nonfocal. EXTREMITIES: Lower extremity, chronic edema present. LABORATORY DATA: WBC 18.4, hemoglobin 12.3, hematocrit 29, platelets 168. PT 24, INR 2.5, APTT 49.2. Sodium 135, potassium 3.9, chloride 97, bicarbonate 26, BUN 61, creatinine 8.3, serum glucose 160, lactate 1.5, calcium 8.7, magnesium 2. Total bilirubin 0.4, AST 14, ALT 14, alkaline phosphatase 115. Troponin I 0.017. Procalcitonin 0.8. Influenza A and B and PCR negative. IMAGING DATA: Chest x-ray: Suspected slight improvement in the previously identified reticulonodular interstitial thickening. EKG, undetermined rhythm with rate of 88. ASSESSMENT AND PLAN: This is an 84-year-old male who presents with nausea, vomiting, diarrhea and not feeling well. 1. Nausea, vomiting, diarrhea. Mild abdominal discomfort, recent history of C. diff, still on p.o. vancomycin. The patient also had antibiotics with IV ampicillin for his bacteremia with enterococcus. We will get a CT scan to rule out any colitis. We will get stool sample again and increase of p.o. vancomycin 250 mg every 6 hours and IV flagyl.. Continue IV cefepime for now until blood cultures are back. Follow the stool cultures. Close monitor.Also added iv vanco for now until cultures are back.. 2. End-stage renal disease, on hemodialysis. Missed dialysis today. We will consult Nephrology for possible dialysis in a.m. 3. History of atrial flutter, status post ablation. 4. History of recurrent PE/DVT, on Coumadin, status post IVC filter. Currently, INR is 2.5. Continue Coumadin. Follow the Coumadin levels. 5. Chronic right-sided heart failure. Volume status managed by dialysis 6. Recent rectal bleed thought to be from c diff . We will follow the labs. 7. History of nonocclusive CAD, history of bioprosthetic aortic valve, history of right carotid artery endarterectomy, history of ASPIRIN ALLERGY. On Coumadin, beta laquita. Currently seems stable. 8. Diabetes, diet controlled. Last HbA1c was 7.3. We will place him on ISS and follow the blood sugars. 9. Anemia of chronic kidney disease.Hemoglobulin at baseline. We will follow the labs. 10. Recent bacteremia with enterococcus. Finished IV abx course. We will follow the blood cultures. 11. DVT prophylaxis, on Coumadin. INR therapeutic. CODE STATUS: Full code. DISPOSITION: Admit to med/surg tele. PT and OT prior to discharge. Social Service to help with discharge planning. MTDD
[2019-10-29] MEDS ORDERED: CEFEPIME CONSULT ACTIVE PRN (02:52)
[2019-10-29] MEDS: VANCOMYCIN HCL 250 MG/5 ML SOLN PO SCH ×4 (03:45→17:09)
[2019-10-29] MEDS: RASPBERRY SYRUP 5 ML UDP PO SCH ×4 (03:45→17:09)
[2019-10-29] MEDS ORDERED: VANCOMYCIN CONSULT ACTIVE PRN (04:15)
[2019-10-29] MEDS ORDERED: VANCOMYCIN HCL 2,000 MG in SODIUM CHLORIDE 0.9% 500 ML IV ONE (04:30)
[2019-10-29] MEDS: metroNIDAZOLE 500 MG/100 ML BAG IV SCH ×2 (05:12→13:00)
[2019-10-29 05:53] LABS: Hematocrit (blood only) 26.8 % (42-52); Hemoglobin 8.4 g/dL (14.0-18.0); Mean Corpuscular Hemoglobin 36.2 pg (25-34); Mean Corpuscular Hgb Conc 31.3 g/dL (32-36); Mean Corpuscular Volume 115.5 fL (80-100); Mean Platelet Volume 11.4 fL (7.4-10.4); Platelet Count 150 K/uL (130-400); RDW Standard Deviation 75.7 fL (36.4-46.3); Red Blood Count 2.32 M/uL (4.7-6.1); White Blood Count 14.11 K/uL (4.8-10.8)
[2019-10-29 06:00] LABS: INR 2.6 (0.9-1.1); Prothrombin Time 24.6 Seconds (9.0-12.0)
[2019-10-29 06:21] LABS: Basophils # (auto) 0.05 K/uL (0-0.2); Basophils % (auto) 0.4 %; Eosinophils # (auto) 0.11 K/uL (0-0.5); Eosinophils % (auto) 0.8 %; Immature Granulocytes # (auto) 0.07 K/uL (0.00-0.02); Immature Granulocytes % (auto) 0.5 %; Lymphocytes # (auto) 1.44 K/uL (1.2-3.4); Lymphocytes % (auto) 10.2 %; Macrocytosis Present; Monocytes # (auto) 0.84 K/uL (0.11-0.59); Neutrophils % (auto) 82.1 %
[2019-10-29 06:40] LABS: BUN Creatinine Ratio 7.9 (10-20); Calcium 8.4 mg/dl (8.5-10.1); Creatinine Clr Calc Pharmacy 7.3 ml/min; Est GFR (African American) 5.8
--- NOTE | 2019-10-29 07:02 | CT Scan Report ---
ABDOMEN AND PELVIS CT WITHOUT CONTRAST CT DOSE: 1222.57 mGy.cm HISTORY: Acute generalized abdominal pain with possible colitis colitis? recent c diff TECHNIQUE: Multiaxial CT images of the abdomen and pelvis were performed without contrast. A dose lo wering technique was utilized adhering to the principles of ALARA. COMPARISON STUDY: CT abdomen pelvis 10/06/2019 FINDINGS: Cardiomegaly with prior median sternotomy. Coronary arterial calcifications are also noted. Prostheti c aortic valve. Dilation of the main pulmonary artery may reflect associated pulmonary arterial hyper tension. Enlarged subcarinal lymph nodes measure up to 2.2 x 1.6 cm. Prominent right hilar lymph node s are also present. Innumerable subpleural and bronchovascular distribution of pulmonary micronodules . Calcified granuloma of the right lower lobe. Mild bibasilar atelectasis/scarring. No pneumatosis or pneumoperitoneum. Study is limited secondary to positioning of the upper extremities and lack of IV contrast. Within the limitations of the exam the spleen, pancreas, adrenal glands and liver are unremarkable. C holelithiasis without CT evidence of acute cholecystitis. There is no biliary ductal dilation identif ied. Cortical thinning of the bilateral kidneys are noted in conjunction with renal vascular calcific ations. 3.3 cm cyst of the inferior pole left kidney. No ureteral calculi or obstructive uropathy. Wa ll thickening of the bladder with partial distention. Extensive calcified plaque the abdominal aorta without aneurysm. Infrarenal IVC filter. No bowel obstruction or bowel wall thickening. Colonic diverticulosis without acute diverticulitis. N ormal appendix. No ascites or mesenteric inflammation. Demineralized appearance the bones. Right hip total joint arthroplasty. Degenerative changes of the spine, pelvis and left hip. IMPRESSION: 1. No bowel obstruction or bowel wall thickening. 2. Cholelithiasis without CT evidence of acute cholecystitis. 3. Mediastinal and hilar adenopathy is noted in conjunction with innumerable bibasilar subpleural pre dominant micronodules and a few scattered calcified granulomata. Correlate clinically to exclude sarc oidosis. 4. Cardiomegaly with prior median sternotomy and aortic valvular prosthesis. 5. Additional findings as above. ACT 112: Negative or not required by law. The above report was generated using voice recognition software. It may contain grammatical, syntax o r spelling errors. Electronically signed by: Mark Anthony Dickson M.D. 10/29/2019 7:01 AM
[2019-10-29] MEDS: PANTOprazole 40 MG TAB PO SCH (07:31)
[2019-10-29] MEDS: predniSONE 10 MG TABLET PO SCH (07:32)
[2019-10-29] MEDS: FAMOTIDINE 20 MG TAB PO SCH (07:32)
[2019-10-29] MEDS: CHOLECALCIFEROL 1,000 UNITS 25 MCG TAB PO SCH (07:32)
[2019-10-29] MEDS: VITAMIN B COMPLEX TAB PO SCH (07:32)
[2019-10-29] MEDS: LACTOBACILLUS ACIDOPHILUS (FLORANEX) TAB PO SCH ×2 (07:32→21:56)
[2019-10-29] MEDS: SEVELAMER HCL 800 MG TABLET PO SCH ×2 (07:32→16:14)
[2019-10-29] MEDS: NEPHROCAPS PO SCH (07:32)
[2019-10-29] MEDS: METOPROLOL SUCC 50MG EXT REL TAB PO SCH (07:32)
[2019-10-29] MEDS ORDERED: DEXTROSE 50% 50 ML SYRINGE IV PRN (10:00)
[2019-10-29] MEDS ORDERED: CARBOHYDRATES FOR HYPOGLYCEMIA PO PRN (10:00)
[2019-10-29] MEDS ORDERED: GLUCOSE 40% GEL 15 GM TUBE PO PRN (10:00)
[2019-10-29] MEDS ORDERED: GLUCAGON FOR INJ 1 MG VIAL IM PRN (10:00)
[2019-10-29] MEDS ORDERED: GLUCOSE 10 TABS/TUBE PO PRN (10:00)
[2019-10-29] MEDS ORDERED: SODIUM CHLORIDE 0.9% 1000ML 1,000 ML IV PRN (10:14)
[2019-10-29] MEDS ORDERED: HEPARIN SOD (PORCINE) 1000 UNIT/ML 10 ML VIAL IV SCH (10:30)
[2019-10-29] MEDS ORDERED: EPOETIN ALFA 20,000 UNITS/ML VIAL IV SCH (10:30)
[2019-10-29] MEDS: INSULIN ASPART 100 UNITS/ML 3 ML PEN SC SCH ×3 (12:35→20:50)
--- NOTE | 2019-10-29 14:32 | Pharmacy Report ---
Pharmacy Abx Initial Consult - Date of Service October 29, 2019 - Pharmacy Dosing Scope Date of Consult: 10/29/2019 Consultation requested by: Dr. Cisneros Pharmacy is consulted to initiate vancomycin and cefepime IV dosing therapy, order appropriate labs and adjust drug dose/frequency. - Subjective The patient is a 84 year old M admitted on 10/28/19 23:3 with increasing N/V and weakness. Recent hospital admission for C diff (treated with vancomycin PO) and Enterococcus bacteremia (treated with ampicillin). - Objective Height: 5 ft 9 in Weight: 98 kg Vital Signs (Past 12hrs): Vital Signs Temp Pulse Pulse Resp BP Pulse Ox 10/29/19 11:11 36.8 C 70 18 116/53 L 97 10/29/19 08:00 69 10/29/19 07:01 36.8 C 74 18 100/59 L 95 10/29/19 03:40 36.6 C 72 18 110/61 95 10/29/19 03:00 79 Lab Results (24hrs): Laboratory Tests (24 Hours) 10/29/19 10/29/19 10/28/19 05:21 05:21 18:43 WBC 14.11 H Neut # (Auto) 11.60 H Creatinine 8.71 H* D Est Cr Clr Drug Dosing 7.3 Procalcitonin 0.87 H 10/28/19 10/28/19 18:43 18:43 WBC 18.40 H Neut # (Auto) 15.55 H Creatinine 8.36 H* Est Cr Clr Drug Dosing 7.4 Procalcitonin Micro Results: 10/28/19 18:43 Aerobic Blood Culture - Pending Blood Anaerobic Blood Culture - Pending 10/28/19 18:30 Aerobic Blood Culture - Pending Blood Anaerobic Blood Culture - Pending - Risk Factors for Resistance * Hospitalization for 48 hours or more within the past 90 days * Chronic dialysis within the past 30 days * Antimicrobial use within the last 90 days (IV ampicillin and PO vancomycin) - Assessment & Plan Assessment 84 year old M admitted with worsening weakness. Plan vancomycin and cefepime for treatment of generalized weakness with possibility of infection. Vancomycin IV * Estimated PK Parameters: Vd 0.65 L/kg, patient is hemodialysis. * Loading dose: 2000 mg (20 mg/kg) * Maintenance dose: 1000 mg IV (12 mg/kg) x 1 after hemodialysis today. * Goal trough level for generalized indication : ~15 mcg/mL * Random level ordered for 10/30/2019 * A less than traditional dose and extended dosing interval have been selected due to likelihood of drug accumulation in dialysis patient. Pharmacy will continue to follow and will adjust dose/frequency as necessary. Thank you.
[2019-10-29] MEDS: WARFARIN SOD 5 MG TAB PO SCH (16:14)
[2019-10-29] MEDS ORDERED: IRON SUCROSE 100 MG in SYRINGE 0 ML IV SCH (16:30)
--- NOTE | 2019-10-29 17:09 | Nephrology Consultation ---
Date of Consultation October 29, 2019 Assessment & Plan (1) ESRD (end stage renal disease) on dialysis: for HD today to make up tx missed yesterday for HD tomorrow to get back on track w/ schedule gentle fluid removal given poor po, diarrhea on 3 k bath Present on Admission?: Yes (2) Diarrhea: per primary service; f/u pending cxs -- on vanco and cefepime Present on Admission?: Yes (3) Anemia of chronic disease: to get 100 mg venofer today; also epo 20K on hd -daily cbc/d -no heparin in hd -f/u blood cxs Present on Admission?: Yes History of Present Illness Reason for Consultation: esrd on HD Requesting Physician: Dr Cisneros Attending Physician: Mariusz Gonzalez MD History of Present Illness 84 y/o M whom I'm asked to see for ESRD care was admitted this am w/ uncontrolled vomiting, inability to tolerate po, and diarrhea since late 10/26/19. he dialyzes under my care at [facility] via AVF. 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 Also admitted here from 10/06-10/11/19 for C diff colitis w/ suspected translocation enterococcal bacteremia. he called off of dialysis yesterday d/t above sx. also c/o severe mid thoracic back pain worse than chronic baseline. Pt seen on rounds this am at about 1015. Allergies Allergy/AdvReac Type Severity Reaction Status Date / Time aspirin Allergy Unknown . Verified 10/28/19 21:45 salicylates Allergy Unknown UNKNOWN Verified 10/28/19 21:45 Home Medications Home Medications Medication Instructions Recorded Confirmed Type acetaminophen [Tylenol Extra 500 mg PO Q6H PRN 06/14/18 10/28/19 History Strength] cholecalciferol (vitamin D3) 1,000 unit PO DAILY 06/14/18 10/28/19 History [Vitamin D3] omeprazole 20 mg PO DAILY 06/14/18 10/28/19 History Sherley-Neeraj 1 tab PO DAILY 03/18/19 10/28/19 History docusate sodium 100 mg PO BID PRN 03/18/19 10/28/19 History fluticasone propionate [Flonase 1 spray INTRANASAL DAILY PRN 03/18/19 10/28/19 History Allergy Relief] sevelamer carbonate 800 mg PO BIDM 03/18/19 10/28/19 History metoprolol succinate 50 mg PO DAILY 05/21/19 10/28/19 History omega 3-vft-sqb-fish oil [Fish Oil] 1 cap PO DAILY 05/21/19 10/28/19 History metoprolol tartrate 12.5 mg PO 3XWK 10/06/19 10/28/19 History Lactobacillus acidoph-L.bulgar 1 tab PO BID #30 tab 10/10/19 10/28/19 Rx [Lactinex] ampicillin sodium 2 gm IV DAILY #10 ea 10/10/19 10/28/19 Rx vancomycin 125 mg PO Q6H #24 cap 10/10/19 10/28/19 Rx warfarin [Coumadin] 5 mg PO DAILY@1600 30 Days #30 tab 10/10/19 10/28/19 Rx prednisone 10 mg PO DAILY 10/28/19 10/28/19 History ranitidine HCl 150 mg PO DAILY 10/28/19 10/28/19 History vitamin B complex 1 tab PO DAILY 10/28/19 10/28/19 History Patient History Medical History Anemia (Chronic) 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) Aortic valve insufficiency (Chronic) Atrial flutter (Chronic) DVT (deep venous thrombosis) (Chronic) " 01/13/09 left leg " Dyslipidemia (Chronic) ESRD (end stage renal disease) on dialysis (Chronic) GERD (gastroesophageal reflux disease) (Chronic) Gram-positive bacteremia (Resolved) HTN (hypertension) (Chronic) Hx of amaurosis fugax (Chronic) "01/27/09, OD " PMR (polymyalgia rheumatica) (Chronic) 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) Type 2 diabetes mellitus (Chronic) Surgical History H/O carotid endarterectomy (Chronic) "2008" H/O removal of testicle (Chronic) H/O superior vena cava filter placement (Chronic) History of hydrocelectomy (Chronic) History of total hip replacement (Chronic) S/P ablation of atrial flutter (Chronic) S/P aortic valve replacement (Chronic) "bio prosthetic" S/P cardiac cath (Chronic) "2012 - non obstructive CAD" Family History Mother Hypertension Brother Stroke Social History Preferred Language: [place] Communication Ability: Effective Visual Impairment: Partially Limited Subsurface 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 Other Information That Helps Us Care for You: No Feels Safe at Home: Yes Safety Concerns: Feels Safe At This Time Smoking Status: Never smoker Second Hand Exposure: Yes ; Hx Alcohol Use: No Hx Substance Use: No Review of Systems Review of Systems: All systems reviewed & are unremarkable except as noted in HPI & below Physical Exam Constitutional: well developed and well nourished; no acute distress (sitting in bed on RA) Eyes: EOM intact bilaterally ENMT: Ears: no external ear abnormality Nose: no external nose abnormality Mouth: + dry oral mucous membranes Neck: no nuchal rigidity Respiratory: normal respiratory effort Auscultation: lungs clear to auscultation bilaterally and + diminished lung sounds Cardiovascular: Rate/Rhythm: regular rate and regular rhythm Extremities: + edema (3+ BL pedal) and + AV fistula (+t/b) Gastrointestinal (Abdomen): Inspection/Auscultation: normal bowel sounds Percussion/Palpation: abdomen soft; abdomen nontender Musculoskeletal: Extremities: strength 5/5 throughout Skin: no rashes, warm and dry Neurologic: uribe, fluent speech, no tremor Psychiatric: A+Ox3, euthymic affect Results & Data Vital Signs (Past 12 Hours) Vital Signs Temp Pulse Pulse Resp BP Pulse Ox 10/29/19 15:57 69 10/29/19 15:00 36.5 C 76 18 115/61 94 10/29/19 11:11 36.8 C 70 18 116/53 L 97 10/29/19 08:00 69 10/29/19 07:01 36.8 C 74 18 100/59 L 95 Laboratory Results 10/29/19 05:21 10/29/19 05:21 blood cxs in process Diagnostic Findings cxr Suspected slight improvement in the previously identified reticulonodular interstitial thickening CT abd/pelvis Cardiomegaly with prior median sternotomy. Coronary arterial calcifications are also noted. Prosthetic aortic valve. Dilation of the main pulmonary artery may reflect associated pulmonary arterial hypertension. Enlarged subcarinal lymph nodes measure up to 2.2 x 1.6 cm. Prominent right hilar lymph nodes are also present. Innumerable subpleural and bronchovascular distribution of pulmonary micronodules. Calcified granuloma of the right lower lobe. Mild bibasilar atelectasis/scarring. No pneumatosis or pneumoperitoneum. Study is limited secondary to positioning of the upper extremities and lack of IV contrast. Within the limitations of the exam the spleen, pancreas, adrenal glands and liver are unremarkable. Cholelithiasis without CT evidence of acute cholecystitis. There is no biliary ductal dilation identified. Cortical thinning of the bilateral kidneys are noted in conjunction with renal vascular calcifications. 3.3 cm cyst of the inferior pole left kidney. No ureteral calculi or obstructive uropathy. Wall thickening of the bladder with partial distention. Extensive calcified plaque the abdominal aorta without aneurysm. Infrarenal IVC filter No bowel obstruction or bowel wall thickening. Colonic diverticulosis without acute diverticulitis. Normal appendix. No ascites or mesenteric inflammation. Demineralized appearance the bones. Right hip total joint arthroplasty. Degenerative changes of the spine, pelvis and left hip. IMPRESSION: 1. No bowel obstruction or bowel wall thickening. 2. Cholelithiasis without CT evidence of acute cholecystitis. 3. Mediastinal and hilar adenopathy is noted in conjunction with innumerable bibasilar subpleural predominant micronodules and a few scattered calcified granulomata. Correlate clinically to exclude sarcoidosis. 4. Cardiomegaly with prior median sternotomy and aortic valvular prosthesis. 5. Additional findings as above. (1) Diarrhea Diarrhea type: unspecified type Qualified Code(s): R19.7 - Diarrhea, unspecified
--- NOTE | 2019-10-29 17:44 | Electrocardiogram Report ---
Test Reason : Blood Pressure : / mmHG Vent. Rate : 088 BPM Atrial Rate : 088 BPM P-R Int : 000 ms QRS Dur : 082 ms QT Int : 348 ms P-R-T Axes : 000 -35 030 degrees QTc Int : 421 ms Sinus rhythm with PACs Left axis deviation Abnormal ECG Confirmed by Breezy Latham ([id number]) on 10/29/2019 5:44:34 PM Referred By: REFERRED SELF Confirmed By:Brent Latham
[2019-10-29] MEDS ORDERED: VANCOMYCIN HCL 1,000 MG in SODIUM CHLORIDE 0.9% 250 ML IV SCH (18:00)
[2019-10-29] MEDS: HEPARIN SOD (PORCINE) 1000 UNIT/ML 10 ML VIAL IV SCH (18:14)
--- NOTE | 2019-10-29 19:40 | Hospitalist Progress Note ---
Date of Service October 29, 2019 Assessment & Plan (1) Diarrhea: Abdominal discomfort associated with Nausea/Vomiting and Diarrhea CT abd/pelvis showed no bowel obstruction or bowel wall thickening. Starting on Vanco PO and IV flagyl and Cefepime Stool for C diff did not collect since diarrhea improves Diet advanced as tolerated Will continue IV cefepime and Vanco for now until blood cultures negative for 48hrs End-stage renal disease, on hemodialysis. Missed HD yesterday Plan to get HD today Clinically stable History of atrial flutter status post ablation. Continue metoprolol On Coumadin with INR 2.6 Stable History of recurrent PE/DVT Status post IVC filter. Continue Coumadin Monitor PT/INR Chronic right-sided heart failure. Plan for HD today Stable History of nonocclusive CAD History of bioprosthetic aortic valve, History of right carotid artery endarterectomy ALLERGY with Aspirin Continue Coumadin and beta laquita Stable Diabetes Last HbA1c was 7.3. Controlled Monitor BS Anemia of chronic kidney disease Hgb 8.4 Stable DVT prophylaxis, on Coumadin INR therapeutic. Code Status Full code Subjective Pt was seen and examined. Lying in bed with no distress Pt said that diarrhea improves and only has 1 episode of diarrhea this morning Denies any chest pain, palpitation, dizziness and fever Physical Exam Physical Exam: General- No acute distress Head- atraumatic Eyes- PERRL, EOMI, ENT- oropharynx clear Neck- supple, no JVD Lungs- clear to auscultation Heart- regular rhythm; no murmur Abdomen- normal bowel sounds, soft, nontender Extremities- no calf tenderness, +edema Neuro- alert, oriented x 3; PERRL, EOMI; no facial palsy; no dysarthria Skin- warm & dry Results & Data Vital Signs (Past 12 Hours) Vital Signs Temp Pulse Pulse Pulse Resp BP BP 10/29/19 19:20 74 143/67 H 10/29/19 19:00 74 134/70 10/29/19 18:40 75 151/74 H 10/29/19 18:20 76 157/77 H 10/29/19 18:00 75 136/76 10/29/19 17:40 77 138/75 10/29/19 17:20 77 128/73 10/29/19 17:00 82 137/70 10/29/19 16:40 68 126/67 10/29/19 16:30 36.7 C 70 01/29/20 15:57 69 10/29/19 15:00 36.5 C 76 18 115/61 10/29/19 11:11 36.8 C 70 18 116/53 L 10/29/19 08:00 69 Pulse Ox 10/29/19 19:20 10/29/19 19:00 10/29/19 18:40 10/29/19 18:20 10/29/19 18:00 10/29/19 17:40 10/29/19 17:20 10/29/19 17:00 10/29/19 16:40 10/29/19 16:30 10/29/19 15:57 10/29/19 15:00 94 10/29/19 11:11 97 10/29/19 08:00 (1) Diarrhea Diarrhea type: unspecified type Qualified Code(s): R19.7 - Diarrhea, unspecified
[2019-10-29] MEDS: CEFEPIME 500 MG in SYRINGE 0 ML IV SCH (21:55)
[2019-10-29 23:50] LABS: Cdiff Antigen Positive
[2019-10-29 23:52] LABS: Cdiff Toxin A+B Positive Cdiff Toxin (Negative)
[2019-10-30] MEDS: RASPBERRY SYRUP 5 ML UDP PO SCH ×4 (00:07→17:29)
[2019-10-30] MEDS: VANCOMYCIN HCL 250 MG/5 ML SOLN PO SCH ×4 (00:07→17:31)
[2019-10-30] MEDS: HEPARIN SOD (PORCINE) 1000 UNIT/ML 10 ML VIAL IV SCH (06:59)
[2019-10-30] MEDS ORDERED: METOPROLOL TARTRATE 25 MG TAB PO SCH (07:00)
[2019-10-30 07:36] LABS: INR 2.9 (0.9-1.1); Prothrombin Time 27.4 Seconds (9.0-12.0)
[2019-10-30] MEDS ORDERED: SODIUM CHLORIDE 0.9% 1000ML 1,000 ML IV PRN (07:49)
[2019-10-30] MEDS: SEVELAMER HCL 800 MG TABLET PO SCH ×2 (07:51→17:28)
[2019-10-30] MEDS: LACTOBACILLUS ACIDOPHILUS (FLORANEX) TAB PO SCH ×2 (07:51→20:33)
[2019-10-30] MEDS: PANTOprazole 40 MG TAB PO SCH (07:52)
[2019-10-30] MEDS: NEPHROCAPS PO SCH (07:52)
[2019-10-30] MEDS: predniSONE 10 MG TABLET PO SCH (07:52)
[2019-10-30] MEDS: FAMOTIDINE 20 MG TAB PO SCH (07:52)
[2019-10-30] MEDS: VITAMIN B COMPLEX TAB PO SCH (07:52)
[2019-10-30] MEDS: CHOLECALCIFEROL 1,000 UNITS 25 MCG TAB PO SCH (07:52)
[2019-10-30] MEDS: INSULIN ASPART 100 UNITS/ML 3 ML PEN SC SCH ×4 (07:57→20:34)
--- NOTE | 2019-10-30 09:45 | Pharmacy Report ---
Pharmacy Abx Dose Short Note - Date of Service October 30, 2019 - Assessment & Plan Laboratory Tests 10/30/19 07:00 Random Vancomycin 24.5 Assessment 84 year old M receiving IV Vancomycin for treatment of recent bacteremia with enterococcus earlier this month, treated with Ampicillin. Current BC have no growth. Day # 3 of Vancomycin and Cefepime therapy. Also on PO vancomycin for CDiff. HD yesterday and today to catch up on normal schedule. Plan Vancomycin * Random level of 24.5 mcg/mL is supratherapeutic * HD again today, no further doses of Vancomycin at this time * Random level ordered for: 10/31/19 with AM labs Pharmacy will continue to follow and will adjust dose/frequency as necessary. Thank you.
--- NOTE | 2019-10-30 09:59 | Dialysis Progress Note ---
Date of Service October 30, 2019 Assessment & Plan (1) ESRD (end stage renal disease) on dialysis: routine hd today; volume status, bp, chemistries acceptable; cont renagel and nephvite again, gentle fluid removal given poor po, diarrhea on 3 k bath (2) Diarrhea: per primary service; f/u pending cxs -- on vanco and cefepime >> to date cxs negative (3) Anemia of chronic disease: to get 100 mg venofer today; also epo 20K on hd -daily cbc/d -no heparin in hd -f/u blood cxs Subjective cont to feel improved; still soem fecal urgency/bm loose; but no sob, back pain stable/at baseline; no n/v; no chest discomfort; no rash Review of Systems Review of Systems: All systems reviewed & are unremarkable except as noted in HPI & below Physical Exam Constitutional: well developed and well nourished; no acute distress (lying in bed on RA) Eyes: EOM intact bilaterally ENMT: Ears: no external ear abnormality Nose: no external nose abnormality Mouth: + dry oral mucous membranes Neck: no nuchal rigidity Respiratory: normal respiratory effort Auscultation: lungs clear to auscultation bilaterally and + diminished lung sounds Cardiovascular: Rate/Rhythm: regular rate and regular rhythm Extremities: + edema (2-3+ BL pedal) and + AV fistula (+t/b) Gastrointestinal (Abdomen): Inspection/Auscultation: normal bowel sounds Percussion/Palpation: abdomen soft; abdomen nontender Musculoskeletal: Extremities: strength 5/5 throughout Skin: no rashes, warm and dry Neurologic: uribe, fluent speech Psychiatric: A+Ox3, euthymic affect Results & Data Vital Signs (Past 12 Hours) Vital Signs Temp Pulse Pulse Pulse Resp BP Pulse Ox 10/30/19 09:46 37.1 C 66 10/30/19 08:00 74 10/30/19 07:13 36.6 C 75 18 126/65 94 10/30/19 04:18 36.6 C 77 18 111/57 L 95 10/30/19 02:23 10/30/19 00:30 74 10/29/19 23:06 36.5 C 84 18 112/53 L 95 Pulse Ox 10/30/19 09:46 10/30/19 08:00 10/30/19 07:13 10/30/19 04:18 10/30/19 02:23 95 10/30/19 00:30 10/29/19 23:06 Laboratory Results 10/29/19 05:21 10/29/19 05:21 (1) Diarrhea Diarrhea type: unspecified type Qualified Code(s): R19.7 - Diarrhea, unspecified
[2019-10-30] MEDS ORDERED: IRON SUCROSE 100 MG in SYRINGE 0 ML IV SCH (10:00)
[2019-10-30] MEDS ORDERED: EPOETIN ALFA 20,000 UNITS/ML VIAL IV SCH (10:00)
[2019-10-30] MEDS: METOPROLOL SUCC 50MG EXT REL TAB PO SCH (13:55)
[2019-10-30] MEDS: WARFARIN SOD 5 MG TAB PO SCH (16:08)
[2019-10-30] MEDS: CEFEPIME 500 MG in SYRINGE 0 ML IV SCH (17:31)
--- NOTE | 2019-10-30 19:01 | Hospitalist Progress Note ---
Date of Service October 30, 2019 Assessment & Plan (1) Diarrhea: Abdominal discomfort associated with Nausea/Vomiting and Diarrhea CT abd/pelvis showed no bowel obstruction or bowel wall thickening. Starting on Vanco PO and IV flagyl and Cefepime Stool for C diff did not collect since diarrhea improves Diet advanced as tolerated Will continue IV cefepime and Vanco for now until blood cultures negative for 48hrs If cx remains negative today, will d/c IV abx End-stage renal disease, on hemodialysis. Just completed HD today Clinically stable History of atrial flutter status post ablation. Continue metoprolol On Coumadin with INR 2.9 today Stable History of recurrent PE/DVT Status post IVC filter. Continue Coumadin Monitor PT/INR Chronic right-sided heart failure. Plan for HD today Stable History of nonocclusive CAD History of bioprosthetic aortic valve, History of right carotid artery endarterectomy ALLERGY with Aspirin Continue Coumadin and beta laquita Stable Diabetes Last HbA1c was 7.3. Controlled Monitor BS Anemia of chronic kidney disease Hgb 8.4 on 10/29/19 Stable DVT prophylaxis, on Coumadin INR therapeutic. Code Status Full code Disposition Will discharge home tomorrow Subjective Pt was seen and examined Sitting in bed with no distress Pt said that he feels much better He said that he only had 2 episode of diarrhea so far Denies any chest pain, palpitation and SOB Physical Exam Physical Exam: General- No acute distress Head- atraumatic Eyes- PERRL, EOMI, ENT- oropharynx clear Neck- supple, no JVD Lungs- clear to auscultation Heart- regular rhythm; no murmur Abdomen- normal bowel sounds, soft, nontender Extremities- no calf tenderness, +edema Neuro- alert, oriented x 3; PERRL, EOMI; no facial palsy; no dysarthria Skin- warm & dry Results & Data ([facility]) Vital Signs (Past 12 Hours) Vital Signs Temp Pulse Pulse Pulse Resp BP BP 10/30/19 15:34 37.1 C 75 115/62 10/30/19 15:20 36.9 C 83 82 18 108/54 L 10/30/19 13:00 74 100/60 10/30/19 12:40 74 110/59 L 10/30/19 12:20 72 102/54 L 10/30/19 12:00 75 116/59 L 10/30/19 11:40 72 101/51 L 10/30/19 11:20 70 99/51 L 10/30/19 11:00 74 103/53 L 10/30/19 10:40 70 103/52 L 10/30/19 10:20 71 98/45 L 10/30/19 10:00 70 111/57 L 10/30/19 09:46 37.1 C 66 10/30/19 09:40 72 112/61 10/30/19 09:15 73 112/58 L 10/30/19 08:00 74 10/30/19 07:13 36.6 C 75 18 126/65 Pulse Ox 10/30/19 15:34 10/30/19 15:20 95 10/30/19 13:00 10/30/19 12:40 10/30/19 12:20 10/30/19 12:00 10/30/19 11:40 10/30/19 11:20 10/30/19 11:00 10/30/19 10:40 10/30/19 10:20 10/30/19 10:00 10/30/19 09:46 10/30/19 09:40 10/30/19 09:15 10/30/19 08:00 10/30/19 07:13 94 (1) Diarrhea Diarrhea type: unspecified type Qualified Code(s): R19.7 - Diarrhea, unspecified
[2019-10-31] MEDS: VANCOMYCIN HCL 250 MG/5 ML SOLN PO SCH ×3 (00:05→13:35)
[2019-10-31] MEDS: RASPBERRY SYRUP 5 ML UDP PO SCH ×3 (00:05→13:35)
[2019-10-31 08:00] LABS: INR 2.7 (0.9-1.1); Prothrombin Time 25.9 Seconds (9.0-12.0)
[2019-10-31] MEDS: FAMOTIDINE 20 MG TAB PO SCH (08:38)
[2019-10-31] MEDS: LACTOBACILLUS ACIDOPHILUS (FLORANEX) TAB PO SCH (08:38)
[2019-10-31] MEDS: VITAMIN B COMPLEX TAB PO SCH (08:38)
[2019-10-31] MEDS: SEVELAMER HCL 800 MG TABLET PO SCH (08:38)
[2019-10-31] MEDS: predniSONE 10 MG TABLET PO SCH (08:39)
[2019-10-31] MEDS: METOPROLOL SUCC 50MG EXT REL TAB PO SCH (08:39)
[2019-10-31] MEDS: PANTOprazole 40 MG TAB PO SCH (08:39)
[2019-10-31] MEDS: NEPHROCAPS PO SCH (08:39)
[2019-10-31] MEDS: CHOLECALCIFEROL 1,000 UNITS 25 MCG TAB PO SCH (08:39)
[2019-10-31 09:26] LABS: Basophils # (auto) 0.06 K/uL (0-0.2); Basophils % (auto) 0.9 %; Eosinophils # (auto) 0.16 K/uL (0-0.5); Eosinophils % (auto) 2.3 %; Hematocrit (blood only) 29.4 % (42-52); Hemoglobin 9.2 g/dL (14.0-18.0); Immature Granulocytes # (auto) 0.08 K/uL (0.00-0.02); Immature Granulocytes % (auto) 1.2 %; Lymphocytes # (auto) 1.36 K/uL (1.2-3.4); Lymphocytes % (auto) 19.7 %; Mean Corpuscular Hemoglobin 36.2 pg (25-34); Mean Corpuscular Hgb Conc 31.3 g/dL (32-36); Mean Corpuscular Volume 115.7 fL (80-100); Mean Platelet Volume 11.6 fL (7.4-10.4); Monocytes % (auto) 7.2 %; Neutrophils # (auto) 4.74 K/uL (1.4-6.5); Neutrophils % (auto) 68.7 %; Platelet Count 187 K/uL (130-400); RDW Coefficient of Variation 17.4 % (11.5-14.5); Red Blood Count 2.54 M/uL (4.7-6.1)
[2019-10-31] MEDS: INSULIN ASPART 100 UNITS/ML 3 ML PEN SC SCH ×2 (09:49→13:34)
[2019-10-31 09:50] LABS: Anisocytosis Present; Giant Platelets 1+; Hypochromasia Present; Macrocytosis Present
[2019-10-31 09:59] LABS: BUN Creatinine Ratio 5.8 (10-20); Calcium 8.4 mg/dl (8.5-10.1); Creatinine Clr Calc Pharmacy 14.6 ml/min; Est GFR (African American) 14.1; Est GFR (Non-African American) 12.1; Potassium 3.4 mmol/L (3.5-5.1)
--- NOTE | 2019-10-31 15:35 | Hospitalist Progress Note ---
Date of Service October 31, 2019 Assessment & Plan (1) Diarrhea: Abdominal discomfort associated with Nausea/Vomiting and Diarrhea CT abd/pelvis showed no bowel obstruction or bowel wall thickening. Starting on Vanco PO and IV flagyl and Cefepime Stool for C diff did not collect since diarrhea improves Diet advanced as tolerated Will continue IV cefepime and Vanco for now until blood cultures negative for 48hrs Blood cx remains negative, will d/c IV abx End-stage renal disease, on hemodialysis. Last HD was yesterday Schedule for HD tomorrow Clinically stable History of atrial flutter status post ablation. Continue metoprolol On Coumadin with INR 2.7 today Stable History of recurrent PE/DVT Status post IVC filter. Continue Coumadin Monitor PT/INR Chronic right-sided heart failure. Plan for HD today Stable History of nonocclusive CAD History of bioprosthetic aortic valve, History of right carotid artery endarterectomy ALLERGY with Aspirin Continue Coumadin and beta laquita Stable Diabetes Last HbA1c was 7.3. Controlled Monitor BS Anemia of chronic kidney disease Hgb 9.2 on 10/31/19 Stable DVT prophylaxis, on Coumadin INR therapeutic. Code Status Full code Disposition Will discharge home today Subjective Pt was seen and examined Sitting in bed with no distress Pt said that he feels much better He said that his diarrhea improves Denies any chest pain, palpitation and SOB Physical Exam Physical Exam: General- No acute distress Head- atraumatic Eyes- PERRL, EOMI, ENT- oropharynx clear Neck- supple, no JVD Lungs- clear to auscultation Heart- regular rhythm Abdomen- normal bowel sounds, soft, nontender Extremities- no calf tenderness, +edema Neuro- alert, oriented x 3; PERRL, EOMI; no facial palsy; no dysarthria Skin- warm & dry Results & Data ([facility]) Vital Signs (Past 12 Hours) Vital Signs Temp Pulse Pulse Pulse Resp BP Pulse Ox 10/31/19 14:43 36.2 C L 65 82 78 18 137/70 97 10/31/19 14:31 36.2 C L 65 82 78 18 137/70 97 10/31/19 07:38 36.2 C L 78 18 137/70 97 10/31/19 03:56 36.8 C 67 18 117/62 94 (1) Diarrhea Diarrhea type: unspecified type Qualified Code(s): R19.7 - Diarrhea, unspecified
--- NOTE | 2019-11-02 08:36 | Discharge Summary ---
Date of Service October 31, 2019 Admission HPI Per Admitting Provider CHIEF COMPLAINT: Nausea, vomiting and diarrhea and not feeling well. 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 The patient was recently in the hospital, admitted on 10/06/2019 and discharged on 10/11/2019. Admitted for nausea, vomiting and bloody diarrhea, abdominal pain and found to have bacteremia with enterococcus positive for C. diff, was discharged on IV ampicillin to complete 14-day course of antibiotics and to continue p.o. vancomycin 10 days post antibiotics. He has completed the IV antibiotics, currently on p.o. vancomycin. Says since yesterday, he is having nausea, vomiting and diarrhea. Few episodes of diarrhea, no blood in stools or black stools and he is not able to eat anything. Whatever he is eating, he is vomiting up. Denies any abdominal pain. Denies any fever, chills. Feeling very sick, weak came to the ER.He was supposed to go to dialysis today but he felt so weak that he could not go to dialysis. In the ER, he is hemodynamically stable. Did have significant leukocytosis of 18.4. His INR is 2.5, creatinine of 8.3, potassium of 3.9. Lactate is 1.5. Influenza A and B, PCR negative. Procalcitonin 0.8. Chest x-ray was okay. Currently, resting comfortably and hemodynamically stable. Denies any chest pain. No shortness of breath, no cough, no headache, no blurred vision, no earache, no runny nose, no sore throat. No bleeding though He has lower extremity edema. He says this worsens on and off . Admission Exam Per Admitting Provider GENERAL: The patient is of moderate built, not in acute distress. VITAL SIGNS: Temperature 37.1, pulse 71, respiratory rate 20, blood pressure 131/53, oxygen 92% on room air. HEENT: No pallor, no icterus. Pupils equal, round, reactive to light. NECK: No JVD, no neck masses, no carotid bruit. CARDIOVASCULAR: S1, S2 heard. Regular rate and rhythm. No murmur, no gallop. RESPIRATORY SYSTEM: Normal AP diameter. No accessory muscle use. No wheezing, no crackles. ABDOMEN: Soft, bowel sounds present. Mild periumbilical discomfort. No guarding, no rigidity, no distention. CENTRAL NERVOUS SYSTEM: Cranial nerves II-XII grossly intact. Nonfocal. EXTREMITIES: Lower extremity, chronic edema present. Principal Diagnosis Diarrhea End-stage renal disease, on hemodialysis. History of atrial flutter History of recurrent PE/DVT Chronic right-sided heart failure. History of nonocclusive CAD History of bioprosthetic aortic valve, History of right carotid artery endarterectomy Diabetes Anemia of chronic kidney disease Discharge Exam General- No acute distress Head- atraumatic Eyes- PERRL, EOMI, ENT- oropharynx clear Neck- supple, no JVD Lungs- clear to auscultation Heart- regular rhythm Abdomen- normal bowel sounds, soft, nontender Extremities- no calf tenderness, +edema Neuro- alert, oriented x 3; PERRL, EOMI; no facial palsy; no dysarthria Skin- warm & dry Discharge Data Allergies Allergy/AdvReac Type Severity Reaction Status Date / Time aspirin Allergy Unknown . Verified 10/28/19 21:45 salicylates Allergy Unknown UNKNOWN Verified 10/28/19 21:45 Consultations 10/28/19 20:09 ED Decision to Admit Stat 10/29/19 02:23 Consult Case Management - Discharge Planning Routine 10/29/19 08:00 Consult Nephrology Routine Ordered Studies 10/28/19 23:35 CT abd pelvis wo con Urgent XR chest 1V portable CLINICAL HISTORY: SEPSIS COMPARISON STUDY: 10/06/2019 FINDINGS: The cardiac and mediastinal contours remain stable. There are postsurgical changes of a midline sternotomy and valvular replacement. There is a suspected trace left pleural effusion. There is basilar reticulonodular interstitial thickening, minimally improved.[ IMPRESSION: 1. Suspected slight improvement in the previously identified reticulonodular interstitial thickening. ACT 112: Negative or not required by law. Electronically signed by: Justice Gutierres M.D. 10/28/2019 5:13 PM Dictated: 10/28/191710 Transcribed: 10/28/[address] WITHOUT CONTRAST CT DOSE: 1222.57 mGy.cm HISTORY: Acute generalized abdominal pain with possible colitis colitis? recent c diff TECHNIQUE: Multiaxial CT images of the abdomen and pelvis were performed without contrast. A dose lowering technique was utilized adhering to the principles of ALARA. COMPARISON STUDY: CT abdomen pelvis 10/06/2019 FINDINGS: Cardiomegaly with prior median sternotomy. Coronary arterial calcifications are also noted. Prosthetic aortic valve. Dilation of the main pulmonary artery may reflect associated pulmonary arterial hypertension. Enlarged subcarinal lymph nodes measure up to 2.2 x 1.6 cm. Prominent right hilar lymph nodes are also present. Innumerable subpleural and bronchovascular distribution of pulmonary micronodules. Calcified granuloma of the right lower lobe. Mild bibasilar atelectasis/scarring. No pneumatosis or pneumoperitoneum. Study is limited secondary to positioning of the upper extremities and lack of IV contrast. Within the limitations of the exam the spleen, pancreas, adrenal glands and liver are unremarkable. Cholelithiasis without CT evidence of acute cholecystitis. There is no biliary ductal dilation identified. Cortical thinning of the bilateral kidneys are noted in conjunction with renal vascular calcifications. 3.3 cm cyst of the inferior pole left kidney. No ureteral calculi or obstructive uropathy. Wall thickening of the bladder with partial distention. Extensive calcified plaque the abdominal aorta without aneurysm. Infrarenal IVC filter. No bowel obstruction or bowel wall thickening. Colonic diverticulosis without acute diverticulitis. Normal appendix. No ascites or mesenteric inflammation. Demineralized appearance the bones. Right hip total joint arthroplasty. Degenerative changes of the spine, pelvis and left hip. IMPRESSION: 1. No bowel obstruction or bowel wall thickening. 2. Cholelithiasis without CT evidence of acute cholecystitis. 3. Mediastinal and hilar adenopathy is noted in conjunction with innumerable bibasilar subpleural predominant micronodules and a few scattered calcified granulomata. Correlate clinically to exclude sarcoidosis. 4. Cardiomegaly with prior median sternotomy and aortic valvular prosthesis. 5. Additional findings as above. ACT 112: Negative or not required by law. The above report was generated using voice recognition software. It may contain grammatical, syntax or spelling errors. Electronically signed by: Mark Anthony Dickson M.D. 10/29/2019 7:01 AM Dictated: 10/29/[id number] Transcribed: 10/29/19 0654 Hospital Course (1) Diarrhea: Abdominal discomfort associated with Nausea/Vomiting and Diarrhea CT abd/pelvis showed no bowel obstruction or bowel wall thickening. Starting on Vanco PO and IV flagyl and Cefepime Stool for C diff did not collect since diarrhea improves Diet advanced as tolerated Will continue IV cefepime and Vanco for now until blood cultures negative for 48hrs Blood cx remains negative, will d/c IV abx End-stage renal disease, on hemodialysis. Last HD was yesterday Schedule for HD tomorrow Clinically stable History of atrial flutter status post ablation. Continue metoprolol On Coumadin with INR 2.7 today Stable History of recurrent PE/DVT Status post IVC filter. Continue Coumadin Monitor PT/INR Chronic right-sided heart failure. Plan for HD today Stable History of nonocclusive CAD History of bioprosthetic aortic valve, History of right carotid artery endarterectomy ALLERGY with Aspirin Continue Coumadin and beta laquita Stable Diabetes Last HbA1c was 7.3. Controlled Monitor BS Anemia of chronic kidney disease Hgb 9.2 on 10/31/19 Stable DVT prophylaxis, on Coumadin INR therapeutic. Code Status Full code Disposition Will discharge home today Total Time Total Time Spent Total Time Spent (In Minutes): 35 minutes Total Time Includes: Examination of the Patient, Discharge Planning, Medication Reconciliation, Communication With Other Providers and Other Discharge Plan Discharge Items Patient Disposition: Home - Home Health Services Reason For Visit: ILLNESS Discharge Diagnosis: Diarrhea End-stage renal disease, on hemodialysis. History of atrial flutter History of recurrent PE/DVT Chronic right-sided heart failure. History of nonocclusive CAD History of bioprosthetic aortic valve, History of right carotid artery endarterectomy Diabetes Anemia of chronic kidney disease Activity: Resume your previous activity Non-emergency contact: Primary Care Provider Call non-emergency contact if: you have any medication questions Follow-up/Referrals: Zach Gooden MD [Primary Care Provider] - 11/05/19 2:45 pm Diet: Dialysis Renal Addtl Attending Provider Instructions: Follow up with your primary care provider Dr. Gooden on 11/05/19 @ 2:45 PM Follow up with your nephrology Follow up with the coumadin clinic (Monitor PT/INR) Your next dialysis schedule for tomorrow Continue physical and occupational therapy Complete the course of the antibiotic with Vancomycin oral Fall precaution Pending Studies at Discharge: No Stand-Alone Forms: My [facility], Smoking Cessation Medications and DC Order Prescriptions: Continued metoprolol succinate 50 mg Tablet Extended Release 24 Hr 50 mg PO DAILY RF: 0 omega [id number]-fish oil [Fish Oil] 1,000 mg (120 mg-180 mg) Capsule 1 cap PO DAILY RF: 0 metoprolol tartrate 25 mg tablet 12.5 mg PO 3XWK RF: 0 warfarin [Coumadin] 5 mg Tablet 5 mg PO DAILY@1600 30 Days Qty: 30 RF: 0 Lactinex 1 million cell tablet,chewable 1 tab PO BID Qty: 30 RF: 0 ranitidine HCl 150 mg Tablet 150 mg PO DAILY RF: 0 vitamin B complex Tablet 1 tab PO DAILY RF: 0 prednisone 10 mg Tablet 10 mg PO DAILY RF: 0 acetaminophen [Tylenol Extra Strength] 500 mg Tablet 500 mg PO Q6H PRN (Reason: Pain) RF: 0 omeprazole 20 mg capsule,delayed release(DR/EC) 20 mg PO DAILY RF: 0 cholecalciferol (vitamin D3) [Vitamin D3] 1,000 unit Capsule 1,000 unit PO DAILY RF: 0 Sherley-Neeraj 0.8 mg tablet 1 tab PO DAILY RF: 0 fluticasone propionate [Flonase Allergy Relief] 50 mcg/actuation [place],Suspension 1 spray INTRANASAL DAILY PRN (Reason: Nasal Congestion) RF: 0 docusate sodium 100 mg Tablet 100 mg PO BID PRN (Reason: Constipation) RF: 0 sevelamer carbonate 800 mg tablet 800 mg PO BIDM RF: 0 Changed vancomycin 125 mg capsule 250 mg PO Q6H 6 Days Qty: 48 RF: 0 Discontinued ampicillin sodium 2 gram recon soln 2 gm IV DAILY Qty: 10 RF: 0 Discharge Orders: Discharge Order (Routine); Ordered 10/31/19 Ordered By: Mariusz Gonzalez Admission Data Admit Date/Time: 10/28/19 23:35 Attending Provider: Mariusz Gonzalez Admit Provider: Jeff Cisneros Primary Care Provider: Zach Gooden Other Providers: [facility],Home Healthcare ; Jeff Cisneros ; Ashly Myrick Other Interventions: Discharge Summary Assessment (RN) Last Done: 10/31/19 14:43 DC Date/Time DO NOT enter until pt leaves facility: 10/31/19 16:25
--- NOTE | 2019-11-04 10:38 | Coding Query ---
CODING QUERY To promote full compliance with coding requirements relating to patient care, provider participation is requested in all cases of pipe bowl paint trimmer uncertainty. Please assist us with the question(s) below: Coding Question(s): Patient admitted with nausea,vomiting and bloody diarrhea. Please document the etiology of the enteritis if known or suspected. Thankl you ! Billy Mosqueda [facility] Physician's Response(s): Unknown Etiology Principal Diagnosis: "that condition established after study, to be chiefly responsible for occasioning the admission of the patient to the hospital for care." Co-Existing Principal Diagnosis: "when two or more diagnoses equally meet the criteria for principal diagnosis as determined by the circumstances of admission, diagnostic work up, and/or therapy provided, and the Alphabetic Index, Tabular List, or another coding guideline does not provide sequencing direction, any one of the diagnoses may be sequenced first." "When the physician has documented what appears to be a current diagnosis in the body of the record, but has not included the diagnosis in the final diagnostic statement, the physician should be asked whether the diagnosis should be added." ([facility] 2 QTR90. p3-4) INDU
== END 2019-10-31 16:25 | disposition home health service (06) | DRG 391 ==
LOC: ED 16:25 → 2W 23:35

== ENCOUNTER 2019-11-13 11:52 | Inpatient (IN) ==
[2019-11-13] MEDS ORDERED: VANCOMYCIN HCL 125 MG/2.5ML SOLN PO STA (12:38)
[2019-11-13] MEDS ORDERED: ONDANSETRON INJ 2 MG/ML 2 ML VIAL IV STA (12:38)
[2019-11-13] MEDS ORDERED: metroNIDAZOLE 500 MG/100 ML BAG IV STA (12:38)
[2019-11-13] MEDS ORDERED: ACETAMINOPHEN 1,000 MG/100 ML VIAL IV STA (12:38)
[2019-11-13] MEDS ORDERED: SODIUM CHLORIDE 0.9% 500 ML IV SCH (12:45)
--- NOTE | 2019-11-13 13:07 | XRay Report ---
SINGLE VIEW CHEST CLINICAL HISTORY: Dyspnea. FINDINGS: An AP, portable, upright chest radiograph is compared to study dated 10/28/2019. Correlation is made with chest CT dated 05/10/2019. The examination is degraded by portable technique and patient rotation. The patient is status post midline sternotomy. The heart is enlarged noting atheroscleroti c calcification of the thoracic aorta. There is pulmonary vascular congestion. There is volume loss i n the right lung. Chronic interstitial thickening and nodularity is similar to previous. Scarring/ate lectasis is noted at the lung bases. No large pleural effusion is identified. No pneumothorax is seen . The skeletal structures are osteopenic. The bony thorax is grossly intact. IMPRESSION: Cardiomegaly with evidence of mild congestive failure. ACT 112: Negative or not required by law. Electronically signed by: Guilherme Cummings M.D. 11/13/2019 1:06 PM
[2019-11-13 13:08] LABS: Hematocrit (blood only) 28.2 % (42-52); Hemoglobin 9.2 g/dL (14.0-18.0); Mean Corpuscular Hemoglobin 36.8 pg (25-34); Mean Corpuscular Hgb Conc 32.6 g/dL (32-36); Mean Corpuscular Volume 112.8 fL (80-100); Mean Platelet Volume 11.2 fL (7.4-10.4); Platelet Count 166 K/uL (130-400); RDW Coefficient of Variation 17.6 % (11.5-14.5); White Blood Count 20.03 K/uL (4.8-10.8)
[2019-11-13 13:32] LABS: Basophils # (auto) 0.03 K/uL (0-0.2); Basophils % (auto) 0.1 %; Eosinophils # (auto) 0.01 K/uL (0-0.5); Immature Granulocytes # (auto) 0.05 K/uL (0.00-0.02); Immature Granulocytes % (auto) 0.2 %; Lymphocytes # (auto) 1.35 K/uL (1.2-3.4); Lymphocytes % (auto) 6.7 %; Monocytes # (auto) 1.42 K/uL (0.11-0.59); Monocytes % (auto) 7.1 %; Neutrophils # (auto) 17.17 K/uL (1.4-6.5); Neutrophils % (auto) 85.9 %; RBC Morphology Unremarkable
[2019-11-13 13:39] LABS: Albumin Globulin Ratio 0.5 (0.9-2); Albumin Level 2.6 gm/dl (3.4-5.0); BUN Creatinine Ratio 6.6 (10-20); Bilirubin,Total 0.6 mg/dl (0.2-1); Calcium 8.5 mg/dl (8.5-10.1); Creatinine Clr Calc Pharmacy 8.8 ml/min; Est GFR (Non-African American) 6.9; Globulin 5.6 gm/dl (2.5-4.0); Potassium 4.2 mmol/L (3.5-5.1); Total Protein 8.2 gm/dl (6.4-8.2)
--- NOTE | 2019-11-13 14:06 | Emergency Department Note ---
Entered by Josy Peter acting as a scribe for Guilherme Hahn MD History of Present Illness General Chief complaint: Illness Time Seen by Provider: 11/13/19 12:29 Source: patient History of Present Illness Onset (ago): hour(s) (0000 today) Location: head (weakness) Severity: similar to prior episodes Pain Consistency: + other (persistent) Maximum Pain Intensity: 6 Quality: + other (cramping) Associated symptoms: + fever/chills, + nausea/vomiting, + shortness of breath and + weakness; no other (hematochezia) Treatments prior to arrival: none The patient is an 84 year old male presenting to the Emergency Department via EMS complaining of persistent weakness starting at 0000 today. The patient reports that he is feeling generally weak. He states that he has constant lower abdominal pain and describes this as a cramping sensation. He explains that he has been experiencing multiple episodes of diarrhea for the past day and that his hemorrhoids have been acting up. He notes that he noticed no blood in his stool. He states that he is nauseous and vomited up the food he ate earlier. 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 The patients family reports that the patient has experienced these symptoms before as he has been in and out of the hospital for the past 6 weeks for similar symptoms. They state that the patient receives dialysis treatments on Tuesdays and as he can only produce a small amount of urine on his own. They note that the patient didnt go to his dialysis appointment today. They add that the patients lower extremities are sometimes swollen and that the patient is sometimes short of breath but that these are not new problems. 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 He denies hematochezia. 1237: EMR reviewed. The patient was discharged from the hospital on 10/31/2019. He had diarrhea at that time. He was discharged with 6 days worth of Vancomycin. Home Medications Home Medications Medication Instructions Recorded Confirmed Type cholecalciferol (vitamin D3) 1,000 unit PO DAILY 06/14/18 11/13/19 History [Vitamin D3] omeprazole 20 mg PO DAILY 06/14/18 11/13/19 History docusate sodium 100 mg PO BID PRN 03/18/19 11/13/19 History fluticasone propionate [Flonase 1 spray INTRANASAL DAILY PRN 03/18/19 11/13/19 History Allergy Relief] metoprolol succinate 50 mg PO DAILY 05/21/19 11/13/19 History omega 5-igh-xpx-fish oil [Fish Oil] 1 cap PO DAILY 05/21/19 11/13/19 History metoprolol tartrate 12.5 mg PO 3XWK 10/06/19 11/13/19 History B complex-vitamin C-folic acid 0.8 mg PO DAILY 11/13/19 11/13/19 History [Nephro-Neeraj] lidocaine-prilocaine 1 applic TOPICAL 3XWK 11/13/19 11/13/19 History sevelamer carbonate [Renvela] 1,600 mg PO DAILYBD 11/13/19 11/13/19 History sevelamer carbonate [Renvela] 800 mg PO BID 11/13/19 11/13/19 History warfarin 2.5 mg PO MOWEFR 11/13/19 11/13/19 History warfarin 5 mg PO SUTUTHSA 11/13/19 11/13/19 History Allergies Allergy/AdvReac Type Severity Reaction Status Date / Time aspirin Allergy Unknown . 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) Aortic valve insufficiency (Chronic) Atrial flutter (Chronic) CAD (coronary artery disease) DVT (deep venous thrombosis) (Chronic) " 01/13/09 left leg " Dyslipidemia (Chronic) ESRD (end stage renal disease) on dialysis (Chronic) GERD (gastroesophageal reflux disease) (Chronic) Gram-positive bacteremia (Resolved) HTN (hypertension) (Chronic) Hx of amaurosis fugax (Chronic) "01/27/09, OD " PMR (polymyalgia rheumatica) (Chronic) 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) Type 2 diabetes mellitus (Chronic) Surgical History H/O carotid endarterectomy (Chronic) "2008" H/O removal of testicle (Chronic) H/O superior vena cava filter placement (Chronic) History of hydrocelectomy (Chronic) History of total hip replacement (Chronic) S/P ablation of atrial flutter (Chronic) S/P aortic valve replacement (Chronic) "bio prosthetic" S/P cardiac cath (Chronic) "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" Family History Mother Hypertension Brother Stroke Social History Preferred Language: Zambian Communication Ability: Effective Visual Impairment: Partially Limited Pamphlet Distributor Required: No Beliefs That Will Affect Care: None marital status: Current Living Situation: Spouse Current Living Situation Comment: lives with Vannesa and six dogs in three story home. Feels Safe at Home: Yes Smoking Status: Never smoker Second Hand Exposure: Yes ; Hx Alcohol Use: No Hx Substance Use: No Review of Systems See HPI for pertinent positives & negatives. and A total of 10 systems reviewed and were otherwise negative Physical Exam Vital Signs Vital Signs - 24 hr 11/13/19 12:09 11/13/19 13:28 11/13/19 13:31 Temperature 37.2 C Temperature Source Oral Pulse Rate 103 H 95 H Pulse Rate [Left] 97 H Pulse Rate from SpO2 Sensor 96 H Respiratory Rate 16 20 16 Respiratory Effort / Characteristics Non-Labored Spontaneous Non-Labored Spontaneous Respiratory Depth Normal Normal Blood Pressure 121/61 Blood Pressure [Right Arm] 136/62 Blood Pressure Mean 81 Blood Pressure Mean [Right Arm] 86 Blood Pressure Position Lying Blood Pressure Position [Right Arm] Lying Pulse Oximetry 96 97 97 Oxygen Delivery Method Room Air Room Air Sepsis Recent Fever Within 48 Hours No Sepsis New/Unexplained Change in Mental Status No Sepsis Action Taken by Nursing No Action Required 11/13/19 14:00 11/13/19 14:01 11/13/19 14:25 Temperature Temperature Source Pulse Rate 95 H 96 H Pulse Rate [Left] 99 H Pulse Rate from SpO2 Sensor 95 H 97 H Respiratory Rate 15 25 H 17 Respiratory Effort / Characteristics Non-Labored Spontaneous Respiratory Depth Normal Blood Pressure 122/62 Blood Pressure [Right Arm] 122/62 Blood Pressure Mean 79 Blood Pressure Mean [Right Arm] 82 Blood Pressure Position Blood Pressure Position [Right Arm] Lying Pulse Oximetry 97 95 94 Oxygen Delivery Method Room Air Sepsis Recent Fever Within 48 Hours Sepsis New/Unexplained Change in Mental Status Sepsis Action Taken by Nursing 11/13/19 14:30 11/13/19 14:31 11/13/19 15:00 Temperature Temperature Source Pulse Rate Pulse Rate [Left] Pulse Rate from SpO2 Sensor 97 H 99 H 93 H Respiratory Rate 21 46 H 31 H Respiratory Effort / Characteristics Respiratory Depth Blood Pressure 99/57 L 92/47 L Blood Pressure [Right Arm] Blood Pressure Mean 72 55 Blood Pressure Mean [Right Arm] Blood Pressure Position Blood Pressure Position [Right Arm] Pulse Oximetry 98 98 91 Oxygen Delivery Method Sepsis Recent Fever Within 48 Hours Sepsis New/Unexplained Change in Mental Status Sepsis Action Taken by Nursing 11/13/19 15:01 11/13/19 15:09 11/13/19 15:16 Temperature Temperature Source Pulse Rate Pulse Rate [Left] Pulse Rate from SpO2 Sensor 93 H 92 H 90 Respiratory Rate 23 19 Respiratory Effort / Characteristics Respiratory Depth Blood Pressure 89/50 L 93/51 L Blood Pressure [Right Arm] Blood Pressure Mean 64 56 Blood Pressure Mean [Right Arm] Blood Pressure Position Blood Pressure Position [Right Arm] Pulse Oximetry 96 94 97 Oxygen Delivery Method Sepsis Recent Fever Within 48 Hours Sepsis New/Unexplained Change in Mental Status Sepsis Action Taken by Nursing 11/13/19 15:30 11/13/19 16:00 Temperature Temperature Source Pulse Rate 87 Pulse Rate [Left] Pulse Rate from SpO2 Sensor 88 87 Respiratory Rate 27 H 19 Respiratory Effort / Characteristics Respiratory Depth Blood Pressure 86/46 L 84/44 L Blood Pressure [Right Arm] Blood Pressure Mean 52 59 Blood Pressure Mean [Right Arm] Blood Pressure Position Blood Pressure Position [Right Arm] Pulse Oximetry 95 94 Oxygen Delivery Method Sepsis Recent Fever Within 48 Hours Sepsis New/Unexplained Change in Mental Status Sepsis Action Taken by Nursing GENERAL: Patient is in no acute distress. HEENT: No acute trauma, normocephalic atraumatic, mucous membranes moist, no nasal congestion, no scleral icterus. NECK: No stridor, no adenopathy, no meningismus, trachea is midline. LUNGS: Clear to auscultation bilaterally, no wheeze, no rhonchi, breath sounds equal. HEART: Mild tachycardia. Regular rhythm. Subtle systolic murmur. ABDOMEN: Mildly diffusely tender. Soft, bowel sounds positive, no hernias, no peritonitis. EXTREMITIES: Moderate bilateral pedal edema. No cyanosis, full range of motion of all the joints without pain or difficulty, no signs for acute trauma. NEUROLOGIC: Oriented x 3, no acute motor or sensory deficits, no focal weakness. SKIN: No rash, no jaundice, no diaphoresis. Course Course 1230: The patient was evaluated in room B7, and a complete history and physical examination were performed. 1418: I reevaluated the patient at this time. I update the patient and his family. 1422: I discussed the patients case with Sofia Brito PA-C. Dr. [facility] hospitalist will evaluate the patient for further management. 1430: I updated the patient and his family at that time. Administered Medications Discontinued Medications Sodium Chloride (Nss) 500 mls @ 999 mls/hr IV .Q31M JAMES Stop: 11/13/19 13:15 Last Infusion: 11/13/19 14:07 Dose: 0 mls/hr Documented by: [id number] Admin: 11/13/19 13:25 Dose: 999 mls/hr Documented by: [id number] Acetaminophen (Ofirmev) 1,000 mg in 100 mls @ 400 mls/hr IV NOW STA Stop: 11/13/19 12:52 Last Infusion: 11/13/19 14:07 Dose: 0 mls/hr Documented by: [id number] Admin: 11/13/19 13:25 Dose: 400 mls/hr Documented by: [id number] Metronidazole (Flagyl) 500 mg in 100 mls @ 100 mls/hr IV NOW STA Stop: 11/13/19 13:37 Last Infusion: 11/13/19 15:31 Dose: 0 mls/hr Documented by: [id number] Admin: 11/13/19 14:26 Dose: 100 mls/hr Documented by: [id number] Ondansetron HCl (Zofran) 4 mg IV NOW STA Stop: 11/13/19 12:39 Last Admin: 11/13/19 13:25 Dose: 4 mg Documented by: [id number] Vancomycin HCl (Vancomycin Hcl) 125 mg PO NOW STA Stop: 11/13/19 12:39 Last Admin: 11/13/19 14:27 Dose: 125 mg Documented by: [id number] Critical Care Time Critical Care Time: Yes Total Critical Care Time: 34 I have personally spent 34 minutes of critical care time in the direct management of this patient. This includes bedside care, interpretation of diagnostic studies, and testing, discussion with consultants, patient, and family members, and other required patient management activities. This 34 minutes is in excess of all separately billable procedures. Medical Decision Making Differential Diagnosis Differential diagnoses include colitis, diverticulitis, C. diff infection, dehydration, viral illness, food borne illness, electrolyte imbalance and sepsis amongst others. Medical Records Attestation: I reviewed the patient's medical records. Home Medications Current Medication List: was personally reviewed by me Laboratory Data Attestation: I reviewed the patient's lab results. Result diagrams: 11/13/19 12:55 11/13/19 12:55 Lab Results 11/13/19 11/13/19 11/13/19 Range/Units 12:55 12:55 12:55 WBC 20.03 H (4.8-10.8) K/uL RBC 2.50 L (4.7-6.1) M/uL Hgb 9.2 L (14.0-18.0) g/dL Hct 28.2 L (42-52) % MCV 112.8 H (80-100) fL MCH 36.8 H (25-34) pg MCHC 32.6 (32-36) g/dL RDW Std Deviation 72.0 H (36.4-46.3) fL RDW Coeff of Elvia 17.6 H (11.5-14.5) % Plt Count 166 (130-400) K/uL MPV 11.2 H (7.4-10.4) fL Immature Gran % (Auto) 0.2 % Neut % (Auto) 85.9 % Lymph % (Auto) 6.7 % [place] % (Auto) 7.1 % Eos % (Auto) 0.0 % Baso % (Auto) 0.1 % Immature Gran # (Auto) 0.05 H (0.00-0.02) K/uL Neut # (Auto) 17.17 H (1.4-6.5) K/uL Lymph # (Auto) 1.35 (1.2-3.4) K/uL [place] # (Auto) 1.42 H (0.11-0.59) K/uL Eos # (Auto) 0.01 (0-0.5) K/uL Baso # (Auto) 0.03 (0-0.2) K/uL RBC Morphology Unremarkable PT (9.0-12.0) Seconds INR (0.9-1.1) Sodium 136 (136-145) mmol/L Potassium 4.2 (3.5-5.1) mmol/L Chloride 95 L (98-107) mmol/L Carbon Dioxide 29 (21-32) mmol/L Anion Gap 12.0 H (3-11) BUN 44 H (7-18) mg/dl Creatinine 6.73 H* (0.6-1.4) mg/dl Est Cr Clr Drug Dosing 8.8 ml/min Est GFR ( Amer) 8.0 Est GFR (Non-Af Amer) 6.9 BUN/Creatinine Ratio 6.6 L (10-20) Glucose 169 H (70-99) mg/dl Lactate 3.4 H* (0.4-2.0) mmol/L Calcium 8.5 (8.5-10.1) mg/dl Total Bilirubin 0.6 (0.2-1) mg/dl AST 17 (15-37) U/L ALT 19 (12-78) U/L Alkaline Phosphatase 123 H (45-117) U/L Total Protein 8.2 (6.4-8.2) gm/dl Albumin 2.6 L (3.4-5.0) gm/dl Globulin 5.6 H (2.5-4.0) gm/dl Albumin/Globulin Ratio 0.5 L (0.9-2) Lipase 301 (73-393) U/L //20 Range/Units 13:01 WBC (4.8-10.8) K/uL RBC (4.7-6.1) M/uL Hgb (14.0-18.0) g/dL Hct (42-52) % MCV (80-100) fL MCH (25-34) pg MCHC (32-36) g/dL RDW Std Deviation (36.4-46.3) fL RDW Coeff of Elvia (11.5-14.5) % Plt Count (130-400) K/uL MPV (7.4-10.4) fL Immature Gran % (Auto) % Neut % (Auto) % Lymph % (Auto) % [place] % (Auto) % Eos % (Auto) % Baso % (Auto) % Immature Gran # (Auto) (0.00-0.02) K/uL Neut # (Auto) (1.4-6.5) K/uL Lymph # (Auto) (1.2-3.4) K/uL [place] # (Auto) (0.11-0.59) K/uL Eos # (Auto) (0-0.5) K/uL Baso # (Auto) (0-0.2) K/uL RBC Morphology PT 19.0 H (9.0-12.0) Seconds INR 1.9 H (0.9-1.1) Sodium (136-145) mmol/L Potassium (3.5-5.1) mmol/L Chloride (98-107) mmol/L Carbon Dioxide (21-32) mmol/L Anion Gap (3-11) BUN (7-18) mg/dl Creatinine (0.6-1.4) mg/dl Est Cr Clr Drug Dosing ml/min Est GFR ( Amer) Est GFR (Non-Af Amer) BUN/Creatinine Ratio (10-20) Glucose (70-99) mg/dl Lactate (0.4-2.0) mmol/L Calcium (8.5-10.1) mg/dl Total Bilirubin (0.2-1) mg/dl AST (15-37) U/L ALT (12-78) U/L Alkaline Phosphatase (45-117) U/L Total Protein (6.4-8.2) gm/dl Albumin (3.4-5.0) gm/dl Globulin (2.5-4.0) gm/dl Albumin/Globulin Ratio (0.9-2) Lipase (73-393) U/L Imaging Data Radiologist's Impression: Radiology results as stated below per my review and the radiologist's interpretation: CT abd pelvis wo con CLINICAL HISTORY: 84 years-old Male presenting with possible colitis. TECHNIQUE: Multidetector CT of the abdomen and pelvis was performed without the use of intravenous contrast. IV contrast: None. One or more dose lowering techniques were used consistent with the principles of ALARA (as low as reasonably achievable), including automatic exposure control, mA or kV adjustment to individual patient size, and/or use of iterative reconstruction. COMPARISON: 10/29/2019. CT DOSE (mGy.cm): The estimated cumulative dose is 1008.52 mGycm. FINDINGS: Waterworks Operator topogram: Total right hip arthroplasty with wearing of the polyethylene component as on prior exam. Lung bases: Prosthetic aortic valve. Severe three-vessel coronary artery calcification. Normal heart size. No pericardial or pleural effusion. Extensive subpleural reticular and nodular opacities. Miliary nodule pattern as on prior exam in a subpleural distribution. Liver: Normal morphology. Normal density. Biliary: No gross biliary ductal dilatation allowing for noncontrast technique. Gallbladder contains gallstones. Pancreas: Normal noncontrast appearance. Spleen: Normal noncontrast appearance. Adrenal glands: Normal noncontrast appearance. Kidneys and ureters: Moderate bilateral perinephric fat infiltration. Significant renovascular calcification. Few underlying cysts noted. No nephrolithiasis. No hydronephrosis. Ureters nondistended. Bladder: Incompletely evaluated secondary to underdistention. Pelvic organs: Normal noncontrast appearance. Streak artifact arising from the total right hip arthroplasty degrades evaluation of the pelvis. Bowel: Mild diverticulosis of the proximal sigmoid colon. Apparent rectal wall thickening in the mid to lower portion, which is circumferential and similar to prior exam. The appendix is normal. No bowel obstruction. Peritoneal cavity: No free fluid or intraperitoneal gas. Lymph nodes: No gross lymphadenopathy allowing for noncontrast technique. Vasculature: Extensive calcified atherosclerotic plaque throughout the normal caliber abdominal aorta and major branch vessels. IVC filter in place within the infrarenal portion. Abdominal wall: Gynecomastia. Musculoskeletal: Asymmetric atrophy of the right psoas muscle. Total right hip arthroplasty with loss of joint space along the superior aspect consistent with acetabular component polyethylene wearing. Degenerative changes of the spine. Underlying osteopenia. Median sternotomy noted. Mild to moderate compression deformity of T12. This is chronic. IMPRESSION: 1. Circumferential wall thickening of the mid to lower rectum could represent a mild proctitis. Correlate clinically. 2. No other evidence to suggest colitis. 3. Mild diverticulosis. No diverticulitis. 4. Chronic changes at the lung bases with subpleural reticulation and miliary nodules. This is nonspecific. Previously sarcoidosis was suggested. Numerous other etiologies can also account for this appearance. 5. Extensive atherosclerosis. 6. Polyethylene wearing of the total right hip arthroplasty. ACT 112: Negative or not required by law. Electronically signed by: Jaspreet Taylor M.D. 11/13/2019 2:30 PM SINGLE VIEW CHEST CLINICAL HISTORY: Dyspnea. FINDINGS: An AP, portable, upright chest radiograph is compared to study dated 10/28/2019. Correlation is made with chest CT dated 05/10/2019. The examination is degraded by portable technique and patient rotation. The patient is status post midline sternotomy. The heart is enlarged noting atherosclerotic calcification of the thoracic aorta. There is pulmonary vascular congestion. There is volume loss in the right lung. Chronic interstitial thickening and nodularity is similar to previous. Scarring/atelectasis is noted at the lung bases. No large pleural effusion is identified. No pneumothorax is seen. The skeletal structures are osteopenic. The bony thorax is grossly intact. IMPRESSION: Cardiomegaly with evidence of mild congestive failure. ACT 112: Negative or not required by law. Electronically signed by: Guilherme Cummings M.D. 11/13/2019 1:06 PM ECG Data Attestation: I personally reviewed and interpreted this ECG as follows: Indication: + weakness Rate (beats per minute): 103 Rhythm: + sinus tachycardia ECG Intervals/blocks: + First degree AV block and + Normal QT-c (QT-c 445.) ECG ST segments: no ST elevation ECG Findings: no PVCs Additional Comments: Repeat EKG per my interpretation: Sinus rhythm at 95 bpm. 1st degree AV block. No ST elevation. No PVCs. QT-c 434. No change from prior EKG done today. Blood Pressure Blood Pressure Findings: Elevated blood pressure Blood Pressure Disposition: further management by hospitalist [facility] Narrative There is a significant leukocytosis at 20,000, this is consistent with infection. An anemia is present but this is baseline looking back at previous testing. There is a normal platelet count. Renal panel testing does show a high creatinine consistent with his dialysis need. Lactic acid level was elevated at 3.4. This elevation is consistent with infection/sepsis. No worrisome liver enzyme elevation. No evidence for pancreatitis. Chest film does not show pneumonia or CHF. EKG shows a sinus rhythm, no acute ischemia. Abdominal and pelvis CT shows a proctitis. There was no abscess, no bowel perforation. The patient received a 500 cc saline bolus. I was careful not to give too much fluid as he is a dialysis patient and had missed dialysis today. He was given IV Zofran for nausea, IV Flagyl for presumed C. difficile. He was given IV Tylenol and oral vancomycin. 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 He presents with diarrhea, crampy abdominal pain and fever. He has a leukocytosis. He has a very recent diagnosis of C. difficile. A hospital stay is warranted. I spoke to the patient and his family, case chelsea buchanan has been involved. With the white count, fever and tachycardia, he does meet criteria for sepsis. Continuous Cardiac Monitoring: An order was placed for continuous cardiac monitoring. The monitor shows a rate of 97 with sinus rhythm with 1st degree AV block. Impression & Plan Sepsis, Leukocytosis, Diarrhea, Diffuse abdominal pain, Proctitis Discharge Plan Visit Data Chief Complaint: Illness ED Provider: Guilherme Hahn Discharge Problem: Sepsis, Leukocytosis, Diarrhea, Diffuse abdominal pain, Proctitis Patient Disposition: Being Evaluated by Hospitalist Forms Stand Alone Forms: My [facility] Prescriptions Prescriptions: No Action metoprolol succinate 50 mg Tablet Extended Release 24 Hr 50 mg PO DAILY RF: 0 omega 3-pty-blk-fish oil [Fish Oil] 1,000 mg (120 mg-180 mg) Capsule 1 cap PO DAILY RF: 0 metoprolol tartrate 25 mg tablet 12.5 mg PO 3XWK RF: 0 omeprazole 20 mg capsule,delayed release(DR/EC) 20 mg PO DAILY RF: 0 cholecalciferol (vitamin D3) [Vitamin D3] 1,000 unit Capsule 1,000 unit PO DAILY RF: 0 fluticasone propionate [Flonase Allergy Relief] 50 mcg/actuation [place],Suspension 1 spray INTRANASAL DAILY PRN (Reason: Nasal Congestion) RF: 0 docusate sodium 100 mg Tablet 100 mg PO BID PRN (Reason: Constipation) RF: 0 lidocaine-prilocaine 2.5-2.5 % cream 1 applic topical 3XWK RF: 0 warfarin 5 mg tablet 5 mg PO SUTUTHSA RF: 0 Nephro-Neeraj 0.8 mg tablet 0.8 mg PO DAILY RF: 0 warfarin 5 mg Tablet 2.5 mg PO MOWEFR RF: 0 sevelamer carbonate [Renvela] 800 mg Tablet 800 mg PO BID RF: 0 sevelamer carbonate [Renvela] 800 mg Tablet 1,600 mg PO DAILYBD RF: 0 Referrals Referrals: Zach Gooden MD [Primary Care Provider] - Discharge Problem: Sepsis Qualifiers: Sepsis type: sepsis due to unspecified organism Sepsis acute organ dysfunction status: unspecified Qualified Code(s): A41.9 - Sepsis, unspecified organism Leukocytosis Qualifiers: Leukocytosis type: unspecified Qualified Code(s): D72.829 - Elevated white blood cell count, unspecified Diarrhea Qualifiers: Diarrhea type: unspecified type Qualified Code(s): R19.7 - Diarrhea, unspecified The scribe's documentation has been prepared under my direction and personally reviewed by me in its entirety. I confirm that the note above accurately reflects all work, treatment, procedures, and medical decision making performed by me.
--- NOTE | 2019-11-13 14:32 | CT Scan Report ---
CT abd pelvis wo con CLINICAL HISTORY: 84 years-old Male presenting with possible colitis. TECHNIQUE: Multidetector CT of the abdomen and pelvis was performed without the use of intravenous co ntrast. IV contrast: None. One or more dose lowering techniques were used consistent with the princip les of ALARA (as low as reasonably achievable), including automatic exposure control, mA or kV adjust ment to individual patient size, and/or use of iterative reconstruction. COMPARISON: 10/29/2019. CT DOSE (mGy.cm): The estimated cumulative dose is 1008.52 mGycm. FINDINGS: Special Services Supervisor topogram: Total right hip arthroplasty with wearing of the polyethylene component as on prior e xam. Lung bases: Prosthetic aortic valve. Severe three-vessel coronary artery calcification. Normal heart size. No pericardial or pleural effusion. Extensive subpleural reticular and nodular opacities. Milia ry nodule pattern as on prior exam in a subpleural distribution. Liver: Normal morphology. Normal density. Biliary: No gross biliary ductal dilatation allowing for noncontrast technique. Gallbladder contains gallstones. Pancreas: Normal noncontrast appearance. Spleen: Normal noncontrast appearance. Adrenal glands: Normal noncontrast appearance. Kidneys and ureters: Moderate bilateral perinephric fat infiltration. Significant renovascular calcif ication. Few underlying cysts noted. No nephrolithiasis. No hydronephrosis. Ureters nondistended. Bladder: Incompletely evaluated secondary to underdistention. Pelvic organs: Normal noncontrast appearance. Streak artifact arising from the total right hip arthro plasty degrades evaluation of the pelvis. Bowel: Mild diverticulosis of the proximal sigmoid colon. Apparent rectal wall thickening in the mid to lower portion, which is circumferential and similar to prior exam. The appendix is normal. No toño l obstruction. Peritoneal cavity: No free fluid or intraperitoneal gas. Lymph nodes: No gross lymphadenopathy allowing for noncontrast technique. Vasculature: Extensive calcified atherosclerotic plaque throughout the normal caliber abdominal aorta and major branch vessels. IVC filter in place within the infrarenal portion. Abdominal wall: Gynecomastia. Musculoskeletal: Asymmetric atrophy of the right psoas muscle. Total right hip arthroplasty with loss of joint space along the superior aspect consistent with acetabular component polyethylene wearing. Degenerative changes of the spine. Underlying osteopenia. Median sternotomy noted. Mild to moderate c ompression deformity of T12. This is chronic. IMPRESSION: 1. Circumferential wall thickening of the mid to lower rectum could represent a mild proctitis. Juan Ramon elate clinically. 2. No other evidence to suggest colitis. 3. Mild diverticulosis. No diverticulitis. 4. Chronic changes at the lung bases with subpleural reticulation and miliary nodules. This is nonsp ecific. Previously sarcoidosis was suggested. Numerous other etiologies can also account for this tomas earance. 5. Extensive atherosclerosis. 6. Polyethylene wearing of the total right hip arthroplasty. ACT 112: Negative or not required by law. Electronically signed by: Jaspreet Taylor M.D. 11/13/2019 2:30 PM
--- NOTE | 2019-11-13 14:42 | Electrocardiogram Report ---
Test Reason : Blood Pressure : / mmHG Vent. Rate : 103 BPM Atrial Rate : 103 BPM P-R Int : 256 ms QRS Dur : 080 ms QT Int : 340 ms P-R-T Axes : 000 -42 035 degrees QTc Int : 445 ms Sinus tachycardia with 1st degree A-V block Left axis deviation Abnormal ECG When compared with ECG of 28-OCT-2019 17:41, No significant change Confirmed by Osito Strange ([id number]) on 11/13/2019 2:42:18 PM Referred By: REFERRED SELF Confirmed By:Osito Strange
[2019-11-13 16:00] LABS: INR 1.9 (0.9-1.1)
--- NOTE | 2019-11-13 16:14 | History & Physical Report ---
Date of Service November 13, 2019 Assessment & Plan (1) Sepsis: (2) Diarrhea: (3) Diffuse abdominal pain: This is an 84-year-old male who has significant past medical history of ESRD on HD /, T2DM, CAD, PAF, chronic right-sided CHF, history of aortic bioprosthetic valve replacement, HTN, GERD, PMR, thrombocytopenia, history of PE s/p IVC filter who presents to ED secondary to abdominal pain, nausea and diarrhea since 11 PM last evening. In ED patient met sepsis criteria current CMS guidelines with leukocytosis 20.03K, tachycardic, lactic acid 3.4 He received cautious IV fluid resuscitation given end-stage renal disease and missing dialysis today, 500 mL. Blood cultures were obtained. He was started on IV Flagyl and oral vancomycin. Stool Culture for cdiff is ordered. Source: Likely recurrent/fulminant C. difficile colitis, CT scan A/P reveal rectum proctitis. Pt with likely 2nd recurrence of cdiff fulminant given sepsis ( has received 2 courses of 10 day oral vanco 125mg q6hr) admit to PCU start oral vanco 500mg q6hr and IV flagyl 500mg q8hr (consider vanco enema if unable to tolerate oral) obtain stool culture for cdiff GI consulted - discussed with TROY Lemus Consult ID given 2nd recurrence of Cdiff repeat Lactic acid cautious IVF given dialysis patient blood cultures pending (4) ESRD (end stage renal disease) on dialysis: HD / He did not receive HD today Nephrology consulted - Dr Cason continue renvela, Renal diet (5) Type 2 diabetes mellitus: Last A1c 7.6 on 10/07/2019 Not on any oral hypoglycemics or insulin Lantus/NovoLog per protocol (6) PAF (paroxysmal atrial fibrillation): History of atrial fibrillation and atrial flutter status post ablation Rate controlled on metoprolol Tachycardic secondary to sepsis Continue warfarin for anticoagulation (7) Chronic right heart failure: euvolemic HD for volume control, continue metoprolol daily weights, strict I and O (8) CAD (coronary artery disease): no chest pain or sob on warfarin, metoprolol (9) HTN (hypertension): hx of HTN blood pressure on low side given sepsis continue metoprolol with parameters (10) 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 Craig upon discharge Pt was seen and examined in collaboration with Dr. Gonzalez, please see addendum History of Present Illness Chief Complaint: Abdominal pain, diarrhea since 11 PM last evening. Primary Care Provider: Zach Gooden MD This is an 84-year-old male who has significant past medical history of ESRD on HD //, T2DM, CAD, PAF, chronic right-sided CHF, history of aortic bioprosthetic valve replacement, HTN, GERD, PMR, thrombocytopenia, history of PE s/p IVC filter who presents to ED secondary to abdominal pain, nausea and diarrhea since 11 PM last evening. Of significance this is patient's third hospitalization in the last month and a half. Initially he was hospitalized 10/06 to 10/14/2019 secondary to enterococcus bacteremia and C. difficile. He was treated with IV ampicillin x14 days along with a 10-day course of oral Vanco. He was readmitted 10/28 to 10/31/2019 secondary to first recurrence of C. difficile and placed on a 10-day oral Vanco regimen. He completed course and had been doing well at home until last evening around 11 PM. He developed sierra rrhea and has had 6-10 episodes since last evening. When he moves his bowels he also gets crampy abdominal pain. Abdominal pain is not constant, comes and goes, is diffuse, is described as crampy, rated 6 out of 10 when comes on, made worse with touching his abdomen. His pain is improved with bowel movement. He further elicits to some nausea and emesis. Overall this morning he felt very weak and was unable to attend dialysis. Given recurrence of symptoms he prompted to re-present to ED for further evaluation. He overall felt feverish and chilled but did not check his temperature. He denies any lightheadedness, dizziness, chest pain, shortness of breath, palpitations, cough, hemoptysis, melena, hematochezia, hematuria. He does urinate but is very minimal. He does admit to having an appetite, "I am hungry." He denies taking any of his medications today except for metoprolol. Family members are at bedside. In ED patient met sepsis criteria current CMS guidelines with leukocytosis 20.03K, tachycardic, lactic acid 3.4 He received cautious IV fluid resuscitation given end-stage renal disease and missing dialysis today, 500 mL. Blood cultures were obtained. He was started on IV Flagyl and oral vancomycin. Stool Culture is ordered. Source: Likely recurrent/fulminant C. difficile colitis, CT scan A/P reveal rectum proctitis. Allergies Allergy/AdvReac Type Severity Reaction Status Date / Time aspirin Allergy Unknown . Verified 11/13/19 12:58 salicylates Allergy Unknown UNKNOWN Verified 11/13/19 12:58 Home Medications Home Medications Medication Instructions Recorded Confirmed Type cholecalciferol (vitamin D3) 1,000 unit PO DAILY 06/14/18 11/13/19 History [Vitamin D3] omeprazole 20 mg PO DAILY 06/14/18 11/13/19 History docusate sodium 100 mg PO BID PRN 03/18/19 11/13/19 History fluticasone propionate [Flonase 1 spray INTRANASAL DAILY PRN 03/18/19 11/13/19 History Allergy Relief] metoprolol succinate 50 mg PO DAILY 05/21/19 11/13/19 History omega 8-jtf-fbq-fish oil [Fish Oil] 1 cap PO DAILY 05/21/19 11/13/19 History metoprolol tartrate 12.5 mg PO 3XWK 10/06/19 11/13/19 History Nephro-Neeraj 0.8 mg PO DAILY 11/13/19 11/13/19 History lidocaine-prilocaine 1 applic TOPICAL 3XWK 11/13/19 11/13/19 History sevelamer carbonate [Renvela] 1,600 mg PO DAILYBD 11/13/19 11/13/19 History sevelamer carbonate [Renvela] 800 mg PO BID 11/13/19 11/13/19 History warfarin 2.5 mg PO MOWEFR 11/13/19 11/13/19 History warfarin 5 mg PO SUTUTHSA 11/13/19 11/13/19 History metronidazole [Flagyl] 500 mg PO TID 14 Days #42 tab 02/16/20 Rx vancomycin 500 mg PO Q6H 30 Days #240 cap 11/16/19 Rx Past Med/Surg History Medical History Anemia (Chronic) 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) Aortic valve insufficiency (Chronic) Atrial flutter (Chronic) CAD (coronary artery disease) DVT (deep venous thrombosis) (Chronic) " 01/13/09 left leg " Dyslipidemia (Chronic) ESRD (end stage renal disease) on dialysis (Chronic) GERD (gastroesophageal reflux disease) (Chronic) Gram-positive bacteremia (Resolved) HTN (hypertension) (Chronic) Hx of amaurosis fugax (Chronic) "01/27/09, OD " PMR (polymyalgia rheumatica) (Chronic) 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) Type 2 diabetes mellitus (Chronic) Surgical History H/O carotid endarterectomy (Chronic) "2008" H/O removal of testicle (Chronic) H/O superior vena cava filter placement (Chronic) History of hydrocelectomy (Chronic) History of total hip replacement (Chronic) S/P ablation of atrial flutter (Chronic) S/P aortic valve replacement (Chronic) "bio prosthetic" S/P cardiac cath (Chronic) "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" Family History Mother Hypertension Brother Stroke Social History Preferred Language: Citizen Of [place] Communication Ability: Effective Visual Impairment: Partially Limited Sap Data Architect Required: No Beliefs That Will Affect Care: None marital status: Current Living Situation: Spouse Current Living Situation Comment: lives with Vannesa and six dogs in three story home. Feels Safe at Home: Yes Smoking Status: Never smoker Second Hand Exposure: No ; Hx Alcohol Use: No Hx Substance Use: No Review of Systems Review of Systems: All systems reviewed & are unremarkable except as noted in HPI & below Physical Exam Physical Exam: Constitutional: WD/WN, elderly, male vitals as above, NAD, sitting up in bed, pleasant, conversing easily Head: Normocephalic, Atraumatic Eyes: PERRL, conjunctivae normal, anicteric sclerae ENMT: external ear and nose normal, oropharynx normal mucous membranes Neck: trachea midline, no thyromegaly normal visual inspection Respiratory: normal respiratory effort, lungs clear to auscultation, no wheeze, rales, rhonchi. Normal insp/exp effort, no accessory muscle use Cardiovascular: Tachycardic rate, regular rhythm, 2/6 JUNIOR noted throughout precordium, bilateral venous stasis changes noted, right greater than left, right lower extremity +2 edema, left lower extremity +1 edema, no erythema, warmth negative Homans. Vessels: no JVD or carotid bruit Chest: normal inspection of chest Abdomen: Obese abdomen, soft, positive bowel sounds throughout all 4 quadrants, mildly tender to palpation in all 4 quadrants, no rebound guarding or rigidity Musculoskeletal: no cyanosis or clubbing, extremities motor strength 5/5 Skin: no rashes, warm and dry moderate turgor Neurologic: PERRL, EOMI, accommodation nl, no face palsy, no dysarthria CN's II-XI intact bilaterally and moves all extremities Psychiatric: A+Ox3, euthymic affect Lymphatic: no cervical or axillary lymphadenopathy : deferred Results & Data Vital Signs (Past 12 Hours) Vital Signs Temp Pulse Pulse Resp BP BP Pulse Ox 11/13/19 14:25 99 H 17 122/62 94 11/13/19 13:28 97 H 20 136/62 97 11/13/19 12:09 37.2 C 103 H 16 121/61 96 Laboratory Results Short CBC 11/13/19 11/13/19 Range/Units 12:55 12:55 WBC 20.03 H (4.8-10.8) K/uL Hgb 9.2 L (14.0-18.0) g/dL Hct 28.2 L (42-52) % Plt Count 166 (130-400) K/uL Lactate 3.4 H* (0.4-2.0) mmol/L BMP 11/13/19 12:55 Sodium 136 Potassium 4.2 Chloride 95 L Carbon Dioxide 29 BUN 44 H Creatinine 6.73 H* Glucose 169 H Calcium 8.5 Liver Function 11/13/19 Range/Units 12:55 Total Bilirubin 0.6 (0.2-1) mg/dl AST 17 (15-37) U/L ALT 19 (12-78) U/L Alkaline Phosphatase 123 H (45-117) U/L Albumin 2.6 L (3.4-5.0) gm/dl Diagnostic Findings CT abd/pelvis: MPRESSION: 1. Circumferential wall thickening of the mid to lower rectum could represent a mild proctitis. Correlate clinically. 2. No other evidence to suggest colitis. 3. Mild diverticulosis. No diverticulitis. 4. Chronic changes at the lung bases with subpleural reticulation and miliary nodules. This is nonspecific. Previously sarcoidosis was suggested. Numerous other etiologies can also account for this appearance. 5. Extensive atherosclerosis. 6. Polyethylene wearing of the total right hip arthroplasty. CXR: IMPRESSION: Cardiomegaly with evidence of mild congestive failure. Medications Administered Discontinued Medications Sodium Chloride (Nss) 500 mls @ 999 mls/hr IV .Q31M JAMES Stop: 11/13/19 13:15 Last Infusion: 11/13/19 14:07 Dose: 0 mls/hr Documented by: [id number] Admin: 11/13/19 13:25 Dose: 999 mls/hr Documented by: [id number] Acetaminophen (Ofirmev) 1,000 mg in 100 mls @ 400 mls/hr IV NOW STA Stop: 11/13/19 12:52 Last Infusion: 11/13/19 14:07 Dose: 0 mls/hr Documented by: [id number] Admin: 11/13/19 13:25 Dose: 400 mls/hr Documented by: [id number] Metronidazole (Flagyl) 500 mg in 100 mls @ 100 mls/hr IV NOW STA Stop: 11/13/19 13:37 Last Infusion: 11/13/19 15:31 Dose: 0 mls/hr Documented by: [id number] Admin: 11/13/19 14:26 Dose: 100 mls/hr Documented by: [id number] Ondansetron HCl (Zofran) 4 mg IV NOW STA Stop: 11/13/19 12:39 Last Admin: 11/13/19 13:25 Dose: 4 mg Documented by: [id number] Vancomycin HCl (Vancomycin Hcl) 125 mg PO NOW STA Stop: 11/13/19 12:39 Last Admin: 11/13/19 14:27 Dose: 125 mg Documented by: [id number] ECG Rate (beats per minute): 103 Rhythm: sinus tachycardia Findings: + 1st degree AV block Code Status & VTE Plan Code Status Full Code VTE Prophylaxis Plan VTE Prophylaxis will be ordered: Yes Supervising Physician Co-Signing Physician Notes Pt was seen and examined. Agreed with Sofia WRIGHT exam assessment and plan. 84-year-old male who has significant past medical history of ESRD on HD T//SA, T2DM, CAD, PAF, chronic right-sided CHF, history of aortic bioprosthetic valve replacement, HTN, GERD, PMR, thrombocytopenia, history of PE s/p IVC filter who presents to ED with abdominal pain associated with nausea and diarrhea. Pt was admitted 2 weeks ago for Cdiff. He said that he completed the course of PO vanco and he was feeling good until the diarrhea started last night. He said that he has multiple episodes of watery diarrhea. CT abd/pelvis showed circumferential wall thickening of the mid to lower rectum could represent a mild proctitis. His WBC elevated to 20K and lactic acid 3.4. He said that he missed his dialysis yesterday. He was started on IV Flagyl and oral vancomycin in the ER. Will continue PO vanco 500mg q6hr and IV flagyl 500mg q8hr. Will consult Gastro and ID. Will monitor CBC, electrolytes and will repeat lactic acid. Continue monitor closely. MD Lisa (1) Diarrhea Diarrhea type: unspecified type Qualified Code(s): R19.7 - Diarrhea, unspecified (2) Sepsis Sepsis acute organ dysfunction status: unspecified Sepsis type: sepsis due to unspecified organism Qualified Code(s): A41.9 - Sepsis, unspecified organism
[2019-11-13] MEDS ORDERED: SODIUM CHLORIDE 0.9% 1000ML 1,000 ML IV SCH (17:25)
[2019-11-13] MEDS ORDERED: CARBOHYDRATES FOR HYPOGLYCEMIA PO PRN (17:25)
[2019-11-13] MEDS ORDERED: GLUCOSE 10 TABS/TUBE PO PRN (17:25)
[2019-11-13] MEDS ORDERED: FLUTICASONE PROPIONATE NA SPR 16 GM BTL NAE PRN (17:25)
[2019-11-13] MEDS ORDERED: ACETAMINOPHEN 325 MG TAB PO PRN (17:25)
[2019-11-13] MEDS ORDERED: GLUCAGON FOR INJ 1 MG VIAL SQ PRN (17:25)
[2019-11-13] MEDS ORDERED: DEXTROSE 50% 50 ML SYRINGE IV PRN (17:25)
[2019-11-13] MEDS ORDERED: GLUCOSE 40% GEL 15 GM TUBE PO PRN (17:25)
[2019-11-13] MEDS ORDERED: ONDANSETRON INJ 2 MG/ML 2 ML VIAL IV PRN (17:25)
[2019-11-13 17:58] LABS: Prothrombin Time 19.4 Seconds (9.0-12.0)
[2019-11-13] MEDS: INSULIN ASPART 100 UNITS/ML 3 ML PEN SC SCH ×2 (18:13→21:12)
[2019-11-13] MEDS: VANCOMYCIN HCL 500 MG/10 ML SOLN PO SCH (18:28)
[2019-11-13] MEDS: RASPBERRY SYRUP 5 ML UDP PO SCH (18:28)
[2019-11-13] MEDS: WARFARIN SOD 5 MG TAB PO SCH (19:41)
[2019-11-13] MEDS: INSULIN GLARGINE SOLOSTAR 100 UNITS/ML 3 ML PEN SC SCH (21:10)
[2019-11-13] MEDS: metroNIDAZOLE 500 MG/100 ML BAG IV SCH (21:10)
[2019-11-14] MEDS: VANCOMYCIN HCL 500 MG/10 ML SOLN PO SCH ×5 (00:11→17:22)
[2019-11-14] MEDS: RASPBERRY SYRUP 5 ML UDP PO SCH ×4 (00:11→17:22)
[2019-11-14 03:47] LABS: Cdiff Antigen Positive; Cdiff Toxin A+B Positive Cdiff Toxin (Negative)
[2019-11-14] MEDS ORDERED: ACETAMINOPHEN 325 MG TAB PO STA (04:15)
[2019-11-14] MEDS: metroNIDAZOLE 500 MG/100 ML BAG IV SCH ×3 (05:45→23:24)
[2019-11-14 06:31] LABS: Hemoglobin 8.2 g/dL (14.0-18.0); Mean Corpuscular Hemoglobin 36.1 pg (25-34); Mean Corpuscular Hgb Conc 31.5 g/dL (32-36); Mean Corpuscular Volume 114.5 fL (80-100); Mean Platelet Volume 11.7 fL (7.4-10.4); Platelet Count 138 K/uL (130-400); RDW Coefficient of Variation 17.9 % (11.5-14.5); RDW Standard Deviation 73.7 fL (36.4-46.3); Red Blood Count 2.27 M/uL (4.7-6.1); White Blood Count 23.13 K/uL (4.8-10.8)
[2019-11-14 06:54] LABS: Albumin Globulin Ratio 0.4 (0.9-2); Albumin Level 2.1 gm/dl (3.4-5.0); BUN Creatinine Ratio 6.1 (10-20); Bilirubin,Total 0.5 mg/dl (0.2-1); Calcium 7.8 mg/dl (8.5-10.1); Est GFR (African American) 6.9; Globulin 5.1 gm/dl (2.5-4.0); Phosphorus 6.3 mg/dl (2.5-4.9); Total Protein 7.2 gm/dl (6.4-8.2)
[2019-11-14 07:00] LABS: Basophils # (auto) 0.03 K/uL (0-0.2); Basophils % (auto) 0.1 %; Immature Granulocytes # (auto) 0.09 K/uL (0.00-0.02); Immature Granulocytes % (auto) 0.4 %; Lymphocytes # (auto) 1.56 K/uL (1.2-3.4); Lymphocytes % (auto) 6.7 %; Macrocytosis Present; Monocytes # (auto) 1.43 K/uL (0.11-0.59); Monocytes % (auto) 6.2 %; Neutrophils # (auto) 20.02 K/uL (1.4-6.5); Neutrophils % (auto) 86.6 %
[2019-11-14] MEDS ORDERED: SODIUM CHLORIDE 0.9% 1000ML 1,000 ML IV PRN (07:41)
[2019-11-14 07:44] LABS: Potassium 3.9 mmol/L (3.5-5.1)
[2019-11-14 07:48] LABS: Magnesium 1.7 mg/dl (1.8-2.4)
[2019-11-14] MEDS ORDERED: HEPARIN SOD (PORCINE) 1000 UNIT/ML 10 ML VIAL IV SCH (08:00)
[2019-11-14] MEDS: SEVELAMER HCL 800 MG TABLET PO SCH ×3 (08:40→16:37)
[2019-11-14] MEDS: NEPHROCAPS PO SCH (08:41)
[2019-11-14] MEDS: METOPROLOL SUCC 50MG EXT REL TAB PO SCH (08:41)
[2019-11-14] MEDS: PANTOprazole 40 MG TAB PO SCH (08:41)
[2019-11-14] MEDS: CHOLECALCIFEROL 1,000 UNITS 25 MCG TAB PO SCH (08:41)
[2019-11-14] MEDS: INSULIN GLARGINE SOLOSTAR 100 UNITS/ML 3 ML PEN SC SCH ×2 (08:42→21:09)
[2019-11-14] MEDS: INSULIN ASPART 100 UNITS/ML 3 ML PEN SC SCH ×4 (08:43→21:09)
[2019-11-14] MEDS ORDERED: MAGNESIUM SULFATE / D5W 1 GM/100 ML BAG IV ONE (09:00)
[2019-11-14] MEDS ORDERED: B COMPLEX VITAMIN C FOLIC ACID 0.8 MG PO SCH (09:00)
--- NOTE | 2019-11-14 09:39 | Gastrointestinal Consultation ---
Date of Consultation November 14, 2019 Assessment & Plan (1) Proctitis: (2) Clostridium difficile infection: Pt is a 84 y/o male, seen for abd pain, n/v, diarrhea, stool studies + for recurrent Cdiff (2nd episode) and proctitis noted on CT scan. - ID consulted, appreciate help w consolidating antibx for Cdiff (currently on both Vancomycin PO and Flagyl IV) - Add Vancomycin 500mg DC enema q6hrs - May advance diet to renal diet as tolerated - Add stool cx - F/U blood cx results - Will follow along for now. Supervising Physician Co-Signing Physician Notes I have seen and examined the patient and discussed the management with TROY Avalos. 84 yo male with a history of prior c diff, admitted with diarrea, c diff +, proctits on imaging. PE - well nourished male in and, HEENT - perrla, CV- rrr no mrg, Pulm- CTAb, Abd - soft nt nd +bs labs imaging reviewed Vanco PO + PO vanc enemas. ID consult has been initiated. History of Present Illness Reason for Consultation: Recurrent Cdiff, proctitis Requesting Physician: Dr. Mariusz Gonzalez Attending Physician: Dr. Katlyn Cortes History of Present Illness Pt is a 84 y/o male, w PMHx as noted below who presented to ED w c/o abd pain, n/v and diarrhea. He was last admitted in October w enteroccocus bacteremia and Cdiff. At that time, recommended for Cdiff to be treated with Vancomycin 125mg QID x 10 days. He is also an ESRD pt, undergoing HD qTue//Sun. He missed HD yesterday due to weakness and eventual admission. He feels better today. Energy is improved. Did move bowels 3x last night w loose stools but denies rectal blee ding. He is tolerating CL diet this AM w/o n/v, abd pain. Labs and imaging studies noted. WBC 20-23K. Stable anemia, LA 3.4. Repeat stool studies + for Cdiff toxin and gene. Blood cx pending. CT abd/pelvis w/o contrast: showed circumferential wall thickening of the mid to lower rectum could represent a mild proctitis. Mild diveticulosis, no diverticulitis. + extensive atherosclerosis He does have hx of adenomatous polyps, last colonoscopy in 2010, and perianal fistula s/p fistulotomy in 2010. Allergies Allergy/AdvReac Type Severity Reaction Status Date / Time aspirin Allergy Unknown . Verified 11/13/19 12:58 salicylates Allergy Unknown UNKNOWN Verified 11/13/19 12:58 Home Medications Home Medications Medication Instructions Recorded Confirmed Type cholecalciferol (vitamin D3) 1,000 unit PO DAILY 06/14/18 11/13/19 History [Vitamin D3] omeprazole 20 mg PO DAILY 06/14/18 11/13/19 History docusate sodium 100 mg PO BID PRN 03/18/19 11/13/19 History fluticasone propionate [Flonase 1 spray INTRANASAL DAILY PRN 03/18/19 11/13/19 History Allergy Relief] metoprolol succinate 50 mg PO DAILY 05/21/19 11/13/19 History omega 7-uox-bdl-fish oil [Fish Oil] 1 cap PO DAILY 05/21/19 11/13/19 History metoprolol tartrate 12.5 mg PO 3XWK 10/06/19 11/13/19 History B complex-vitamin C-folic acid 0.8 mg PO DAILY 11/13/19 11/13/19 History [Nephro-Neeraj] lidocaine-prilocaine 1 applic TOPICAL 3XWK 11/13/19 11/13/19 History sevelamer carbonate [Renvela] 1,600 mg PO DAILYBD 11/13/19 11/13/19 History sevelamer carbonate [Renvela] 800 mg PO BID 11/13/19 11/13/19 History warfarin 2.5 mg PO MOWEFR 11/13/19 11/13/19 History warfarin 5 mg PO SUTUTHSA 11/13/19 11/13/19 History Patient History Medical History Anemia (Chronic) 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) Aortic valve insufficiency (Chronic) Atrial flutter (Chronic) CAD (coronary artery disease) DVT (deep venous thrombosis) (Chronic) " 01/13/09 left leg " Dyslipidemia (Chronic) ESRD (end stage renal disease) on dialysis (Chronic) GERD (gastroesophageal reflux disease) (Chronic) Gram-positive bacteremia (Resolved) HTN (hypertension) (Chronic) Hx of amaurosis fugax (Chronic) "01/27/09, OD " PMR (polymyalgia rheumatica) (Chronic) 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) Type 2 diabetes mellitus (Chronic) Surgical History H/O carotid endarterectomy (Chronic) "2008" H/O removal of testicle (Chronic) H/O superior vena cava filter placement (Chronic) History of hydrocelectomy (Chronic) History of total hip replacement (Chronic) S/P ablation of atrial flutter (Chronic) S/P aortic valve replacement (Chronic) "bio prosthetic" S/P cardiac cath (Chronic) "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" Family History Mother Hypertension Brother Stroke Social History Preferred Language: [place] Communication Ability: Effective Visual Impairment: Partially Limited Senior Technical Specialist Required: No Beliefs That Will Affect Care: None marital status: Current Living Situation: Spouse Current Living Situation Comment: lives with Vannesa and six dogs in three story home. Other Information That Helps Us Care for You: No Feels Safe at Home: Yes Safety Concerns: Feels Safe At This Time Smoking Status: Never smoker Do You Dip or Chew Tobacco: No ; Second Hand Exposure: No ; Tobacco Cessation Education Requested by Patient: No Hx Alcohol Use: No Hx Substance Use: No Review of Systems Review of Systems: All systems reviewed & are unremarkable except as noted in HPI & below Physical Exam Constitutional: WD/WN, vitals as above well groomed, cooperative and comfortable Eyes: PERRL, conjunctivae normal, anicteric sclerae ENMT: external ear and nose normal, oropharynx normal Respiratory: normal respiratory effort, lungs clear to auscultation Cardiovascular: RRR, no murmur, no edema Gastrointestinal (Abdomen): Inspection/Auscultation: + hypoactive bowel sounds Percussion/Palpation: + abdomen firm; abdomen nontender Skin: no rashes, warm and dry no jaundice Psychiatric: A+Ox3, euthymic affect Lymphatic: no lymphedema Results & Data ([facility]) Vital Signs (Past 12 Hours) Vital Signs Temp Pulse Pulse Resp BP Pulse Ox 11/14/19 06:36 36.8 C 88 21 90/44 L 93 11/14/19 03:54 37.6 C H 98 H 25 H 113/50 L 98 11/14/19 00:14 37.6 C H 923 H 18 94/48 L 91 11/14/19 00:00 91 H
--- NOTE | 2019-11-14 09:47 | Nephrology Consultation ---
Date of Consultation November 14, 2019 Assessment & Plan (1) ESRD (end stage renal disease) on dialysis: Patient with ESRD on dialysis Sunday. His last dialysis was on Sunday. He missed dialysis yesterday due to severe diarrhea. We will dialyze him today for 3-1/2 hours, target UF of 1 L. (2) C. difficile colitis: Patient is getting p.o. vancomycin and IV metronidazole per primary team. Renally dose antibiotics for GFR less than 25 mL/min while on dialysis. Will avoid aggressive ultrafiltration while patient has profuse diarrhea. No need for maintenance IV fluids. (3) Anemia of chronic disease: Hemoglobin of 8.2 today. We will give Epogen 10,000 units with dialysis. History of Present Illness Reason for Consultation: ESRD Requesting Physician: Mariusz Gonzalez MD Attending Physician: Mariusz Gonzalez MD History of Present Illness This is an 84-year-old male who has significant past medical history of ESRD on HD //, T2DM, CAD, PAF, chronic right-sided CHF, history of aortic bioprosthetic valve replacement, HTN, GERD, PMR, thrombocytopenia, history of PE s/p IVC filter who was admitted on 11/13/2019 with diarrhea found to have C. diff icile positive. He is septic with hypotension, systolic blood pressure in the 90s. His last dialysis was on Sunday. He missed dialysis yesterday due to diarrhea. He is receiving p.o. vancomycin and IV Flagyl. He feels better this morning but still has diarrhea 3 bowel movements this morning. No vomiting. No shortness of breath. He received 1 L of normal saline. He has a left upper arm AV fistula. Allergies Allergy/AdvReac Type Severity Reaction Status Date / Time aspirin Allergy Unknown . Verified 11/13/19 12:58 salicylates Allergy Unknown UNKNOWN Verified 11/13/19 12:58 Home Medications Home Medications Medication Instructions Recorded Confirmed Type cholecalciferol (vitamin D3) 1,000 unit PO DAILY 06/14/18 11/13/19 History [Vitamin D3] omeprazole 20 mg PO DAILY 06/14/18 11/13/19 History docusate sodium 100 mg PO BID PRN 03/18/19 11/13/19 History fluticasone propionate [Flonase 1 spray INTRANASAL DAILY PRN 03/18/19 11/13/19 History Allergy Relief] metoprolol succinate 50 mg PO DAILY 05/21/19 11/13/19 History omega 4-nwu-znh-fish oil [Fish Oil] 1 cap PO DAILY 05/21/19 11/13/19 History metoprolol tartrate 12.5 mg PO 3XWK 10/06/19 11/13/19 History B complex-vitamin C-folic acid 0.8 mg PO DAILY 11/13/19 11/13/19 History [Nephro-Neeraj] lidocaine-prilocaine 1 applic TOPICAL 3XWK 11/13/19 11/13/19 History sevelamer carbonate [Renvela] 1,600 mg PO DAILYBD 11/13/19 11/13/19 History sevelamer carbonate [Renvela] 800 mg PO BID 11/13/19 11/13/19 History warfarin 2.5 mg PO MOWEFR 11/13/19 11/13/19 History warfarin 5 mg PO SUTUTHSA 11/13/19 11/13/19 History Patient History Medical History Anemia (Chronic) 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) Aortic valve insufficiency (Chronic) Atrial flutter (Chronic) CAD (coronary artery disease) DVT (deep venous thrombosis) (Chronic) " 01/13/09 left leg " Dyslipidemia (Chronic) ESRD (end stage renal disease) on dialysis (Chronic) GERD (gastroesophageal reflux disease) (Chronic) Gram-positive bacteremia (Resolved) HTN (hypertension) (Chronic) Hx of amaurosis fugax (Chronic) "01/27/09, OD " PMR (polymyalgia rheumatica) (Chronic) 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) Type 2 diabetes mellitus (Chronic) Surgical History H/O carotid endarterectomy (Chronic) "2008" H/O removal of testicle (Chronic) H/O superior vena cava filter placement (Chronic) History of hydrocelectomy (Chronic) History of total hip replacement (Chronic) S/P ablation of atrial flutter (Chronic) S/P aortic valve replacement (Chronic) "bio prosthetic" S/P cardiac cath (Chronic) "2012 - non obstructive CAD" Family History Mother Hypertension Brother Stroke Social History Preferred Language: Japanese Communication Ability: Effective Visual Impairment: Partially Limited Crew Clerk Required: No Beliefs That Will Affect Care: None marital status: Current Living Situation: Spouse Current Living Situation Comment: lives with Vannesa and six dogs in three story home. Other Information That Helps Us Care for You: No Feels Safe at Home: Yes Safety Concerns: Feels Safe At This Time Smoking Status: Never smoker Do You Dip or Chew Tobacco: No ; Second Hand Exposure: No ; Tobacco Cessation Education Requested by Patient: No Hx Alcohol Use: No Hx Substance Use: No Review of Systems Review of Systems: All systems reviewed & are unremarkable except as noted in HPI & below Physical Exam Physical Exam: General exam: Appears comfortable, no acute distress HEENT: Pupils are equal and reactive to light Neck: No JVD, neck is supple trachea is midline Respiratory system: Clear breath sounds bilaterally. Gastrointestinal: Abdomen is soft, non distended, non tender, bowel sounds are present CVS: Regular rate and rhythm. No murmurs, rubs or gallops Musculoskeletal: No joint or muscle tenderness Extremities: Non tender, no edema, peripheral pulses are present Neuro: Oriented, no tremors, no focal neurological deficits Skin: No rashes Access: Left upper arm AV fistula with good bruit Results & Data Vital Signs (Past 12 Hours) Vital Signs Temp Pulse Pulse Resp BP Pulse Ox 11/14/19 06:36 36.8 C 88 21 90/44 L 93 11/14/19 03:54 37.6 C H 98 H 25 H 113/50 L 98 11/14/19 00:14 37.6 C H 923 H 18 94/48 L 91 11/14/19 00:00 91 H Laboratory Results 11/14/19 07:15 11/13/19 11/13/19 11/14/19 12:55 12:55 06:12 WBC 20.03 H 23.13 H RBC 2.50 L 2.27 L MCV 112.8 H 114.5 H MCH 36.8 H 36.1 H MCHC 32.6 31.5 L RDW Std Deviation 72.0 H 73.7 H RDW Coeff of Elvia 17.6 H 17.9 H Plt Count 166 138 MPV 11.2 H 11.7 H Phosphorus Albumin 2.6 L 11/14/19 06:12 WBC RBC MCV MCH MCHC RDW Std Deviation RDW Coeff of Elvia Plt Count MPV Phosphorus 6.3 H Albumin 2.1 L
[2019-11-14] MEDS ORDERED: EPOETIN ALFA 10,000 UNITS in SYRINGE 0 ML IV SCH (10:15)
[2019-11-14] MEDS ORDERED: EPOETIN ALFA 10,000 UNITS/ML VIAL IV SCH (10:30)
[2019-11-14] MEDS ORDERED: VANCOMYCIN HCL 500 MG/100 ML ENEMA PR SCH (12:00)
--- NOTE | 2019-11-14 12:20 | Electrocardiogram Report ---
Test Reason : Blood Pressure : / mmHG Vent. Rate : 095 BPM Atrial Rate : 095 BPM P-R Int : 238 ms QRS Dur : 084 ms QT Int : 346 ms P-R-T Axes : 078 -30 032 degrees QTc Int : 434 ms Poor data quality, interpretation may be adversely affected Sinus rhythm with 1st degree A-V block Left axis deviation Abnormal ECG When compared with ECG of 13-NOV-2019 11:57, No significant change was found Confirmed by Osito Strange ([id number]) on 11/14/2019 12:20:04 PM Referred By: REFERRED SELF Confirmed By:Osito Strange
--- NOTE | 2019-11-14 12:52 | Hospitalist Progress Note ---
Date of Service November 14, 2019 Assessment & Plan (1) Recurrent Clostridium difficile diarrhea: (2) Sepsis: On admission meet sepsis criteria current CMS guidelines with leukocytosis 20.03K, tachycardic, lactic acid 3.4 Related to C-diff Lactic acid 2.8 today Received gentle hydration On Vanco oral/IV Flagyl Will transition from Vanco to Dificid Monitor Lactic acid and WBC Blood cx pending (3) Diarrhea: (4) Diffuse abdominal pain: Present on admission with worsening episode of diarrhea and abdominal pain CT abd/pelvis showed circumferential wall thickening of the mid to lower rectum could represent a mild proctitis recently completed course of Vanco oral for Cdiff ID on board and consider to transition Vanco po to Dificid, then oral vanco once completes course of dificid GI on board recommended recommended to add vanco [place] QID for the proctitis Monitor electrolytes (5) ESRD (end stage renal disease) on dialysis: HD // Missed HD yesterday continue dawson Renal diet Nephrology on board Plan to HD today (6) Type 2 diabetes mellitus: Last A1c 7.6 on 10/07/2019 Not on any oral hypoglycemics or insulin Lantus/NovoLog per protocol (7) PAF (paroxysmal atrial fibrillation): History of atrial fibrillation and atrial flutter status post ablation Rate controlled on metoprolol Continue warfarin for anticoagulation with INR 2 today (8) Chronic right heart failure: HD for volume control, continue metoprolol stable (9) CAD (coronary artery disease): denies any chest pain Continue metoprolol (10) HTN (hypertension): BP in the low side Continue monitor BP closely On Metoprolol with parameters (11) 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: Hgb 8.2 today Continue monitor cbc (12) GERD (gastroesophageal reflux disease): continue PPI (13) DVT prophylaxis: On warfarin, INR 2 Hypomagnesemia Due to diarrhea Mg 1.7 today Mg replaced Monitor electrolytes Hx of Recurrent DVT/PE S/P IVC filter Continue on warfarin with INR 2 today Disposition Continue monitor in tele Admission and Anticipated Discharge Date Admission Date: November 13, 2019 Subjective Pt was seen and examined Lying in bed with no distress Pt said that he feels a little better He said that the diarrhea improves a little He said that he is strength a little better Denies any chest pain, palpitation, dizziness and SOB Physical Exam Physical Exam: General- No acute distress Head- atraumatic Eyes- PERRL, EOMI, ENT- oropharynx clear Neck- supple, no JVD Lungs- No wheezing Heart- regular rhythm, +murmur Abdomen- normal bowel sounds, soft, nontender Extremities- no calf tenderness, +edema Neuro- alert, oriented x 3; PERRL, EOMI; no facial palsy; no dysarthria Skin- warm & dry Results & Data ([facility]) Vital Signs (Past 12 Hours) Vital Signs Temp Pulse Pulse Resp BP Pulse Ox 11/14/19 11:58 37.3 C 89 20 103/52 L 93 11/14/19 08:00 88 11/14/19 06:36 36.8 C 88 21 90/44 L 93 11/14/19 03:54 37.6 C H 98 H 25 H 113/50 L 98 (1) Diarrhea Diarrhea type: unspecified type Qualified Code(s): R19.7 - Diarrhea, unspecified (2) Sepsis Sepsis acute organ dysfunction status: unspecified Sepsis type: sepsis due to unspecified organism Qualified Code(s): A41.9 - Sepsis, unspecified organism
[2019-11-14] MEDS ORDERED: FIDAXOMICIN 200 MG TAB PO SCH (13:05)
[2019-11-14] MEDS: VANCOMYCIN HCL 500 MG/100 ML ENEMA PR SCH ×3 (13:35→23:51)
--- NOTE | 2019-11-14 13:41 | Infectious Disease Consult ---
Date of Consultation November 14, 2019 Assessment & Plan (1) C. difficile colitis: pt responding to vanco, would continue this, would give 30 days once daily dosing, then can follow with ID post d/c to discuss tapering dosing due to recurrent episodes. History of Present Illness Attending Physician: Mariusz Gonzalez MD pt admitted with diarrhea. now with less diarrhea. no abd pain, had C. diff recently, tested + 10/06, 10/29, 11/14. was previously on short course of vanco, 10 days with resolution. Abd ct showed proctitis. no f/c. wbc 23, creat 7, on HD. 10/06 hospital stay, he was found to have E. faecalis bsi, repeat cultures negative, echo negative, d/c on daily amp x 14 dyas, also treated for C. diff. no ID eval during previous admissions. placed back on stout upon admission yesterday, tolerting well. no abd pain currently, eating lunch, no n/v, less diarrhea today. no cp, sob, cough. feeling much improved. Allergies Allergy/AdvReac Type Severity Reaction Status Date / Time aspirin Allergy Unknown . Verified 11/13/19 12:58 salicylates Allergy Unknown UNKNOWN Verified 11/13/19 12:58 Home Medications Home Medications Medication Instructions Recorded Confirmed Type cholecalciferol (vitamin D3) 1,000 unit PO DAILY 06/14/18 11/13/19 History [Vitamin D3] omeprazole 20 mg PO DAILY 06/14/18 11/13/19 History docusate sodium 100 mg PO BID PRN 03/18/19 11/13/19 History fluticasone propionate [Flonase 1 spray INTRANASAL DAILY PRN 03/18/19 11/13/19 History Allergy Relief] metoprolol succinate 50 mg PO DAILY 05/21/19 11/13/19 History omega 7-kdv-pgr-fish oil [Fish Oil] 1 cap PO DAILY 05/21/19 11/13/19 History metoprolol tartrate 12.5 mg PO 3XWK 10/06/19 11/13/19 History B complex-vitamin C-folic acid 0.8 mg PO DAILY 11/13/19 11/13/19 History [Nephro-Neeraj] lidocaine-prilocaine 1 applic TOPICAL 3XWK 11/13/19 11/13/19 History sevelamer carbonate [Renvela] 1,600 mg PO DAILYBD 11/13/19 11/13/19 History sevelamer carbonate [Renvela] 800 mg PO BID 11/13/19 11/13/19 History warfarin 2.5 mg PO MOWEFR 11/13/19 11/13/19 History warfarin 5 mg PO SUTUTHSA 11/13/19 11/13/19 History Patient History Medical History Anemia (Chronic) 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) Aortic valve insufficiency (Chronic) Atrial flutter (Chronic) CAD (coronary artery disease) DVT (deep venous thrombosis) (Chronic) " 01/13/09 left leg " Dyslipidemia (Chronic) ESRD (end stage renal disease) on dialysis (Chronic) GERD (gastroesophageal reflux disease) (Chronic) Gram-positive bacteremia (Resolved) HTN (hypertension) (Chronic) Hx of amaurosis fugax (Chronic) "01/27/09, OD " PMR (polymyalgia rheumatica) (Chronic) 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) Type 2 diabetes mellitus (Chronic) Surgical History H/O carotid endarterectomy (Chronic) "2008" H/O removal of testicle (Chronic) H/O superior vena cava filter placement (Chronic) History of hydrocelectomy (Chronic) History of total hip replacement (Chronic) S/P ablation of atrial flutter (Chronic) S/P aortic valve replacement (Chronic) "bio prosthetic" S/P cardiac cath (Chronic) "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" Family History Mother Hypertension Brother Stroke Social History Preferred Language: Chilean Communication Ability: Effective Visual Impairment: Partially Limited Stamps Or Coins Salesperson Required: No Beliefs That Will Affect Care: None marital status: Current Living Situation: Spouse Current Living Situation Comment: lives with Vannesa and six dogs in three story home. Other Information That Helps Us Care for You: No Feels Safe at Home: Yes Safety Concerns: Feels Safe At This Time Smoking Status: Never smoker Do You Dip or Chew Tobacco: No ; Second Hand Exposure: No ; Tobacco Cessation Education Requested by Patient: No Hx Alcohol Use: No Hx Substance Use: No Review of Systems Review of Systems: All systems reviewed & are unremarkable except as noted in HPI & below Physical Exam Constitutional: WD/WN, vitals as above Eyes: PERRL, conjunctivae normal, anicteric sclerae ENMT: external ear and nose normal, oropharynx normal Neck: normal visual inspection Respiratory: normal respiratory effort, lungs clear to auscultation Cardiovascular: RRR, no murmur, no edema Gastrointestinal (Abdomen): normal bowel sounds, soft, nontender, no hepatosplenomegaly Musculoskeletal: no cyanosis or clubbing, extremities motor strength 5/5 Skin: no rashes, warm and dry Psychiatric: A+Ox3, euthymic affect Results & Data ([facility]) Vital Signs (Past 12 Hours) Vital Signs Temp Pulse Pulse Resp BP Pulse Ox 11/14/19 11:58 37.3 C 89 20 103/52 L 93 11/14/19 08:00 88 11/14/19 06:36 36.8 C 88 21 90/44 L 93 11/14/19 03:54 37.6 C H 98 H 25 H 113/50 L 98 PG Care Time/CCT Total # of Minutes Spent Total Time Spent with Patient: Total time spent is greater than 50% in coordination of care (as documented) at patient's floor/unit and/or counseling patient: Coding Level of Care Code 07695 Inpt Consult Level 4 Diagnoses C. difficile colitis A04.72
[2019-11-14 14:28] LABS: INR 2.3 (0.9-1.1)
[2019-11-14] MEDS ORDERED: WARFARIN SOD 2.5 MG TAB PO SCH (16:00)
[2019-11-15] MEDS: VANCOMYCIN HCL 500 MG/10 ML SOLN PO SCH ×5 (00:37→23:48)
[2019-11-15] MEDS: RASPBERRY SYRUP 5 ML UDP PO SCH ×5 (00:37→23:48)
[2019-11-15] MEDS: metroNIDAZOLE 500 MG/100 ML BAG IV SCH ×3 (06:20→21:36)
[2019-11-15] MEDS ORDERED: METOPROLOL TARTRATE 25 MG TAB PO SCH (07:00)
[2019-11-15 07:59] LABS: Hematocrit (blood only) 27.8 % (42-52); Hemoglobin 8.9 g/dL (14.0-18.0); Mean Corpuscular Volume 112.6 fL (80-100); Mean Platelet Volume 11.4 fL (7.4-10.4); Platelet Count 137 K/uL (130-400); RDW Coefficient of Variation 17.8 % (11.5-14.5); RDW Standard Deviation 72.5 fL (36.4-46.3); Red Blood Count 2.47 M/uL (4.7-6.1); White Blood Count 15.35 K/uL (4.8-10.8)
[2019-11-15 08:46] LABS: Hepatitis B Surface Ab Quant 3.37 mIU/mL (>or=10mIU/mL Immune); Hepatitis B Surface Antibody Non-Immune
[2019-11-15 08:57] LABS: Hepatitis B Surface Antigen Neg (Neg)
[2019-11-15 09:00] LABS: BUN Creatinine Ratio 5.3 (10-20); Calcium 8.5 mg/dl (8.5-10.1); Creatinine Clr Calc Pharmacy 12.4 ml/min; Est GFR (African American) 11.8; Est GFR (Non-African American) 10.2; Magnesium 1.9 mg/dl (1.8-2.4); Potassium 3.8 mmol/L (3.5-5.1)
[2019-11-15] MEDS: INSULIN ASPART 100 UNITS/ML 3 ML PEN SC SCH ×4 (09:06→21:56)
[2019-11-15] MEDS: CHOLECALCIFEROL 1,000 UNITS 25 MCG TAB PO SCH (09:07)
[2019-11-15] MEDS: INSULIN GLARGINE SOLOSTAR 100 UNITS/ML 3 ML PEN SC SCH ×2 (09:07→21:55)
[2019-11-15] MEDS: PANTOprazole 40 MG TAB PO SCH (09:07)
[2019-11-15] MEDS: NEPHROCAPS PO SCH (09:07)
[2019-11-15] MEDS: SEVELAMER HCL 800 MG TABLET PO SCH ×3 (09:07→17:19)
[2019-11-15] MEDS: METOPROLOL SUCC 50MG EXT REL TAB PO SCH (09:08)
[2019-11-15] MEDS: VANCOMYCIN HCL 500 MG/100 ML ENEMA PR SCH ×4 (10:29→21:54)
--- NOTE | 2019-11-15 10:31 | Hospitalist Progress Note ---
Date of Service November 15, 2019 Assessment & Plan (1) Recurrent Clostridium difficile diarrhea: (2) Sepsis: On admission meet sepsis criteria current CMS guidelines with leukocytosis 20.03K, tachycardic, lactic acid 3.4 Related to C-diff Lactic acid dropped to 2 Received gentle hydration on admission On Vanco oral/IV Flagyl Since pt symptoms improve on oral Vanco, ID recommended to continue oral Vanco for 1 month Monitor CBC Blood cx no growth so far (3) Diffuse abdominal pain: Present on admission with worsening episode of diarrhea and abdominal pain CT abd/pelvis showed circumferential wall thickening of the mid to lower rectum could represent a mild proctitis recently completed course of Vanco oral for Cdiff ID on board recommended to continue oral vanco for 1 month GI on board Case discussed with Dr. Root recommended to continue Vanco enema until tomorrow for the proctitis Then continue Flagyl and oral vanco on discharge Monitor WBC (4) ESRD (end stage renal disease) on dialysis: HD // Last HD was yesterday continue dawson Renal diet Nephrology on board (5) Type 2 diabetes mellitus: Last A1c 7.6 on 10/07/2019 Not on any oral hypoglycemics or insulin Lantus/NovoLog per protocol (6) PAF (paroxysmal atrial fibrillation): History of atrial fibrillation and atrial flutter status post ablation Rate controlled on metoprolol Continue warfarin for anticoagulation with INR 2 today (7) Chronic right heart failure: HD for volume control, continue metoprolol stable (8) CAD (coronary artery disease): denies any chest pain Continue metoprolol (9) HTN (hypertension): BP in the low side Continue monitor BP closely On Metoprolol with parameters (10) 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: Hgb 8.9 today Continue monitor cbc (11) GERD (gastroesophageal reflux disease): continue PPI (12) DVT prophylaxis: On warfarin, INR 2.3 Hypomagnesemia Due to diarrhea Mg 1.9 today Monitor electrolytes Hx of Recurrent DVT/PE S/P IVC filter Continue on warfarin with INR 2.3 today Disposition Possible discharge home tomorrow Admission and Anticipated Discharge Date Admission Date: November 13, 2019 Subjective Pt was seen and examined Sitting in chair with no distress Pt said that her diarrhea improves He said that he feels much better Denies any chest pain, palpitation, dizziness and SOB Physical Exam Physical Exam: General- No acute distress Head- atraumatic Eyes- PERRL, EOMI, ENT- oropharynx clear Neck- supple, no JVD Lungs- No wheezing Heart- regular rhythm, +murmur Abdomen- normal bowel sounds, soft, nontender Extremities- no calf tenderness, +edema Neuro- alert, oriented x 3; PERRL, EOMI; no facial palsy; no dysarthria Skin- warm & dry Results & Data ([facility]) Vital Signs (Past 12 Hours) Vital Signs Temp Pulse Pulse Resp BP BP Pulse Ox 11/15/19 07:26 36.8 C 92 H 20 97/73 L 95 11/15/19 04:38 36.7 C 93 H 18 102/53 L 95 11/15/19 00:39 36.5 C 98 11/14/19 23:55 36.5 C 90 113/65 11/14/19 23:20 88 108/59 L 11/14/19 23:00 85 93/55 L 11/14/19 22:40 85 111/59 L (1) Sepsis Sepsis acute organ dysfunction status: unspecified Sepsis type: sepsis due to unspecified organism Qualified Code(s): A41.9 - Sepsis, unspecified organism
--- NOTE | 2019-11-15 11:07 | Progress Note ---
Date of Service November 15, 2019 Assessment & Plan Admission and Anticipated Discharge Date Admission Date: November 13, 2019 Subjective Patient was seen and examined today, feels much better, diarrhea is less frequent today and not watery anymore. Tolerating PO diet. Vital with normal HR. O/E: Abdomen soft and nontender. Labs: reviewed WBC trending down. Kidney function improving. CT scan with no ileus or megacolon Recommend: Continue current regimen for severe CDI. Not sure if there is a role to continue Vanco enemas given lack of ileus and response to PO Vanc. He will need a long course of PO vanc but if he gets another recurrence I highly recommend FMT as OP. Recall GI if needed. Results & Data ([facility]) Vital Signs (Past 12 Hours) Vital Signs Temp Pulse Pulse Resp BP BP Pulse Ox 11/15/19 07:26 36.8 C 92 H 20 97/73 L 95 11/15/19 04:38 36.7 C 93 H 18 102/53 L 95 11/15/19 00:39 36.5 C 98 11/14/19 23:55 36.5 C 90 113/65 11/14/19 23:20 88 108/59 L
[2019-11-15] MEDS: WARFARIN SOD 5 MG TAB PO SCH (17:20)
[2019-11-15 18:30] LABS: INR 2.1 (0.9-1.1); Prothrombin Time 20.8 Seconds (9.0-12.0)
[2019-11-16] MEDS: RASPBERRY SYRUP 5 ML UDP PO SCH ×2 (05:50→11:55)
[2019-11-16] MEDS: VANCOMYCIN HCL 500 MG/10 ML SOLN PO SCH ×2 (05:50→11:55)
[2019-11-16] MEDS: metroNIDAZOLE 500 MG/100 ML BAG IV SCH ×2 (05:50→14:26)
[2019-11-16 06:22] LABS: Hemoglobin 8.5 g/dL (14.0-18.0); Mean Corpuscular Hemoglobin 36.2 pg (25-34); Mean Corpuscular Hgb Conc 31.5 g/dL (32-36); Mean Corpuscular Volume 114.9 fL (80-100); Mean Platelet Volume 11.9 fL (7.4-10.4); Platelet Count 145 K/uL (130-400); RDW Coefficient of Variation 17.7 % (11.5-14.5); Red Blood Count 2.35 M/uL (4.7-6.1); White Blood Count 8.22 K/uL (4.8-10.8)
--- NOTE | 2019-11-16 09:09 | Hospitalist Progress Note ---
Date of Service November 16, 2019 Assessment & Plan (1) Recurrent Clostridium difficile diarrhea: (2) Sepsis: On admission meet sepsis criteria current CMS guidelines with leukocytosis 20.03K, tachycardic, lactic acid 3.4 Related to C-diff Lactic acid dropped to 2 Received gentle hydration on admission On Vanco oral/IV Flagyl Since pt symptoms improve on oral Vanco, ID recommended to continue oral Vanco for 1 month WBC back to normal Blood cx no growth so far (3) Diffuse abdominal pain: Present on admission with worsening episode of diarrhea and abdominal pain CT abd/pelvis showed circumferential wall thickening of the mid to lower rectum could represent a mild proctitis recently completed course of Vanco oral for Cdiff ID on board recommended to continue oral vanco for 1 month GI on board Case discussed with Dr. oRot recommended to continue Vanco enema until tomorrow due to lack of ileus Then continue Flagyl and oral vanco on discharge as per GI If pt has another episode of Cdiff, consider fecal transplant outpatient GI recommended to continue Flagyl for 2 weeks and Vanco for 1 month Resolved (4) ESRD (end stage renal disease) on dialysis: HD // Last HD was on Sunday continue dawson Renal diet Nephrology on board OK from nephrology standpoint to discharge home Plan to get an extra 15minutes dialysis each treatment this week (5) Type 2 diabetes mellitus: Last A1c 7.6 on 10/07/2019 Not on any oral hypoglycemics or insulin Lantus/NovoLog per protocol (6) PAF (paroxysmal atrial fibrillation): History of atrial fibrillation and atrial flutter status post ablation Rate controlled on metoprolol Continue warfarin for anticoagulation with INR 2 today Follow up with the [facility] (7) Chronic right heart failure: HD for volume control, continue metoprolol stable (8) CAD (coronary artery disease): denies any chest pain Continue metoprolol (9) HTN (hypertension): BP in the low side Continue monitor BP closely On Metoprolol with parameters (10) 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: Hgb 8.5 today Continue monitor cbc Stable (11) GERD (gastroesophageal reflux disease): continue PPI (12) DVT prophylaxis: On warfarin, INR 2.1 Hypomagnesemia Due to diarrhea Mg 1.9 today Monitor electrolytes Hx of Recurrent DVT/PE S/P IVC filter Continue on warfarin with INR 2.1 yesterday Disposition Possible discharge home tomorrow Admission and Anticipated Discharge Date Admission Date: November 13, 2019 Subjective Pt was seen and examined Sitting in chair with no distress Pt said that diarrhea is improves He had 2 episodes of diarrhea in the middle of the night No diarrhea yet this morning He said that he feels good Denies any chest pain, palpitation and SOB Physical Exam Physical Exam: General- No acute distress Head- atraumatic Eyes- PERRL, EOMI, ENT- oropharynx clear Neck- supple, no JVD Lungs- No wheezing Heart- regular rhythm, +murmur Abdomen- normal bowel sounds, soft, nontender Extremities- no calf tenderness, +edema Neuro- alert, oriented x 3; PERRL, EOMI; no facial palsy; no dysarthria Skin- warm & dry Results & Data ([facility]) Vital Signs (Past 12 Hours) Vital Signs Temp Pulse Pulse Resp BP Pulse Ox 11/16/19 07:25 36.2 C L 85 18 129/65 97 11/16/19 04:33 36.9 C 93 H 16 120/59 L 96 11/15/19 23:21 36.7 C 90 16 105/58 L 94 (1) Sepsis Sepsis acute organ dysfunction status: unspecified Sepsis type: sepsis due to unspecified organism Qualified Code(s): A41.9 - Sepsis, unspecified organism
[2019-11-16] MEDS: INSULIN ASPART 100 UNITS/ML 3 ML PEN SC SCH ×2 (09:13→11:54)
[2019-11-16] MEDS: PANTOprazole 40 MG TAB PO SCH (09:14)
[2019-11-16] MEDS: INSULIN GLARGINE SOLOSTAR 100 UNITS/ML 3 ML PEN SC SCH (09:14)
[2019-11-16] MEDS: CHOLECALCIFEROL 1,000 UNITS 25 MCG TAB PO SCH (09:14)
[2019-11-16] MEDS: NEPHROCAPS PO SCH (09:14)
[2019-11-16] MEDS: SEVELAMER HCL 800 MG TABLET PO SCH ×2 (09:14→11:55)
[2019-11-16] MEDS: VANCOMYCIN HCL 500 MG/100 ML ENEMA PR SCH (09:53)
[2019-11-16] MEDS: METOPROLOL SUCC 50MG EXT REL TAB PO SCH (10:34)
--- NOTE | 2019-11-16 10:39 | Nephrology Progress Note ---
Date of Service November 16, 2019 Assessment & Plan (1) ESRD (end stage renal disease) on dialysis: Patient with ESRD on dialysis Sunday. His last dialysis was on 11/14. He missed dialysis 11/13 d/t diarrhea as OP; dialysis held 11/15 d/t volume depletion/acceptable labs; pt w/ acceptable volume status today though upper limit <> he is otherwise stable for d/c. his chief volume issues as OP are not so much dyspnea as LE edema >>reasonable to d/c home today; pt generally adherent w/ fluid limits and will do so after d/c as well as elevating feet >>have left orders w/ his OP unit to run extra 15 min longer each tx this week to help get back on track for minor increase in LE edema (2) C. difficile colitis: Patient is getting p.o. vancomycin and IV metronidazole per primary team. Renally dose antibiotics for GFR less than 25 mL/min while on dialysis. have avoided aggressive ultrafiltration while patient has profuse diarrhea. No need for maintenance IV fluids. d/c meds per primary service (3) Anemia of chronic disease: Hemoglobin of 8.5; will manage as OP Admission and Anticipated Discharge Date Admission Date: November 13, 2019 Subjective no complaints; no sob, some edema BLE; diarrhea slowing, no N/v Review of Systems Review of Systems: All systems reviewed & are unremarkable except as noted in HPI & below Physical Exam Constitutional: well developed and well nourished; no acute distress sitting up in chair on RA Eyes: EOM intact bilaterally ENMT: Ears: no external ear abnormality Nose: no external nose abnormality Mouth: + dry oral mucous membranes Neck: no nuchal rigidity Respiratory: normal respiratory effort Auscultation: lungs clear to auscultation bilaterally and + diminished lung sounds Cardiovascular: Rate/Rhythm: regular rate and regular rhythm Extremities: + edema (2-3+ pedal) and + AV fistula Gastrointestinal (Abdomen): Inspection/Auscultation: normal bowel sounds Percussion/Palpation: abdomen soft; abdomen nontender Musculoskeletal: Extremities: strength 5/5 throughout Skin: no rashes, warm and dry Neurologic: uribe, fluent speech, no tremor Psychiatric: A+Ox3, euthymic affect Results & Data ([facility]) Vital Signs (Past 12 Hours) Vital Signs Temp Pulse Pulse Resp BP Pulse Ox 11/16/19 07:25 36.2 C L 85 18 129/65 97 11/16/19 04:33 36.9 C 93 H 16 120/59 L 96 11/15/19 23:21 36.7 C 90 16 105/58 L 94 Laboratory Results 11/16/19 05:55 11/15/19 07:25
--- NOTE | 2019-11-16 16:50 | Discharge Summary ---
Date of Service November 16, 2019 Admission HPI Per Admitting Provider This is an 84-year-old male who has significant past medical history of ESRD on HD T//, T2DM, CAD, PAF, chronic right-sided CHF, history of aortic bioprosthetic valve replacement, HTN, GERD, PMR, thrombocytopenia, history of PE s/p IVC filter who presents to ED secondary to abdominal pain, nausea and diarrhea since 11 PM last evening. Of significance this is patient's third hospitalization in the last month and a half. Initially he was hospitalized 10/06 to 10/14/2019 secondary to enterococcus bacteremia and C. difficile. He was treated with IV ampicillin x14 days along with a 10-day course of oral Vanco. He was readmitted 10/28 to 10/31/2019 secondary to first recurrence of C. difficile and placed on a 10-day oral Vanco regimen. He completed course and had been doing well at home until last evening around 11 PM. He developed diarrhea and has had 6-10 episodes since last evening. When he moves his bowels he also gets crampy abdominal pain. Abdominal pain is not constant, comes and goes, is diffuse, is described as crampy, rated 6 out of 10 when comes on, made worse with touching his abdomen. His pain is improved with bowel movement. He further elicits to some nausea and emesis. Overall this morning he felt very weak and was unable to attend dialysis. Given recurrence of symptoms he prompted to re-present to ED for further evaluation. He overall felt feverish and chilled but did not check his temperature. He denies any lightheadedness, dizziness, chest pain, shortness of breath, palpitations, cough, hemoptysis, melena, hematochezia, hematuria. He does urinate but is very minimal. He does admit to having an appetite, "I am hungry." He denies taking any of his medications today except for metoprolol. Family members are at bedside. In ED patient met sepsis criteria current CMS guidelines with leukocytosis 20.03K, tachycardic, lactic acid 3.4 He received cautious IV fluid resuscitation given end-stage renal disease and missing dialysis today, 500 mL. Blood cultures were obtained. He was started on IV Flagyl and oral vancomycin. Stool Culture is ordered. Source: Likely recurrent/fulminant C. difficile colitis, CT scan A/P reveal rectum proctitis. Admission Exam Per Admitting Provider Constitutional: WD/WN, elderly, male vitals as above, NAD, sitting up in bed, pleasant, conversing easily Head: Normocephalic, Atraumatic Eyes: PERRL, conjunctivae normal, anicteric sclerae ENMT: external ear and nose normal, oropharynx normal mucous membranes Neck: trachea midline, no thyromegaly normal visual inspection Respiratory: normal respiratory effort, lungs clear to auscultation, no wheeze, rales, rhonchi. Normal insp/exp effort, no accessory muscle use Cardiovascular: Tachycardic rate, regular rhythm, 2/6 JUNIOR noted throughout precordium, bilateral venous stasis changes noted, right greater than left, right lower extremity +2 edema, left lower extremity +1 edema, no erythema, wa rmth negative Homans. Vessels: no JVD or carotid bruit Chest: normal inspection of chest Abdomen: Obese abdomen, soft, positive bowel sounds throughout all 4 quadrants, mildly tender to palpation in all 4 quadrants, no rebound guarding or rigidity Musculoskeletal: no cyanosis or clubbing, extremities motor strength 5/5 Skin: no rashes, warm and dry moderate turgor Neurologic: PERRL, EOMI, accommodation nl, no face palsy, no dysarthria CN's II-XI intact bilaterally and moves all extremities Psychiatric: A+Ox3, euthymic affect Lymphatic: no cervical or axillary lymphadenopathy : deferred Principal Diagnosis (1) Sepsis: (2) Recurrent C-diff Diarrhea: (3) Diffuse abdominal pain: (4) ESRD (end stage renal disease) on dialysis (5) Type 2 diabetes mellitus: (6) PAF (paroxysmal atrial fibrillation): (7) Chronic right heart failure: (8) CAD (coronary artery disease): (9) HTN (hypertension): (10) 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: Discharge Exam General- No acute distress Head- atraumatic Eyes- PERRL, EOMI, ENT- oropharynx clear Neck- supple, no JVD Lungs- No wheezing Heart- regular rhythm, +murmur Abdomen- normal bowel sounds, soft, nontender Extremities- no calf tenderness, +edema Neuro- alert, oriented x 3; PERRL, EOMI; no facial palsy; no dysarthria Skin- warm & dry Discharge Data Allergies Allergy/AdvReac Type Severity Reaction Status Date / Time aspirin Allergy Unknown . Verified 11/13/19 12:58 salicylates Allergy Unknown UNKNOWN Verified 11/13/19 12:58 Consultations 11/13/19 14:33 Consult Nephrology Routine 11/13/19 14:50 ED Decision to Admit Stat 11/13/19 15:28 Consult Gastroenterology Routine Consult Infectious Diseases Routine 11/13/19 17:25 Consult Case Management - Discharge Planning Routine Ordered Studies 11/13/19 12:38 CT abd pelvis wo con Stat CT abd pelvis wo con CLINICAL HISTORY: 84 years-old Male presenting with possible colitis. TECHNIQUE: Multidetector CT of the abdomen and pelvis was performed without the use of intravenous contrast. IV contrast: None. One or more dose lowering techniques were used consistent with the principles of ALARA (as low as reasonably achievable), including automatic exposure control, mA or kV adjustment to individual patient size, and/or use of iterative reconstruction. COMPARISON: 10/29/2019. CT DOSE (mGy.cm): The estimated cumulative dose is 1008.52 mGycm. FINDINGS: Security Threat Analyst topogram: Total right hip arthroplasty with wearing of the polyethylene component as on prior exam. Lung bases: Prosthetic aortic valve. Severe three-vessel coronary artery calcification. Normal heart size. No pericardial or pleural effusion. Extensive subpleural reticular and nodular opacities. Miliary nodule pattern as on prior exam in a subpleural distribution. Liver: Normal morphology. Normal density. Biliary: No gross biliary ductal dilatation allowing for noncontrast technique. Gallbladder contains gallstones. Pancreas: Normal noncontrast appearance. Spleen: Normal noncontrast appearance. Adrenal glands: Normal noncontrast appearance. Kidneys and ureters: Moderate bilateral perinephric fat infiltration. Significant renovascular calcification. Few underlying cysts noted. No nephrolithiasis. No hydronephrosis. Ureters nondistended. Bladder: Incompletely evaluated secondary to underdistention. Pelvic organs: Normal noncontrast appearance. Streak artifact arising from the total right hip arthroplasty degrades evaluation of the pelvis. Bowel: Mild diverticulosis of the proximal sigmoid colon. Apparent rectal wall thickening in the mid to lower portion, which is circumferential and similar to prior exam. The appendix is normal. No bowel obstruction. Peritoneal cavity: No free fluid or intraperitoneal gas. Lymph nodes: No gross lymphadenopathy allowing for noncontrast technique. Vasculature: Extensive calcified atherosclerotic plaque throughout the normal caliber abdominal aorta and major branch vessels. IVC filter in place within the infrarenal portion. Abdominal wall: Gynecomastia. Musculoskeletal: Asymmetric atrophy of the right psoas muscle. Total right hip arthroplasty with loss of joint space along the superior aspect consistent with acetabular component polyethylene wearing. Degenerative changes of the spine. Underlying osteopenia. Median sternotomy noted. Mild to moderate compression deformity of T12. This is chronic. IMPRESSION: 1. Circumferential wall thickening of the mid to lower rectum could represent a mild proctitis. Correlate clinically. 2. No other evidence to suggest colitis. 3. Mild diverticulosis. No diverticulitis. 4. Chronic changes at the lung bases with subpleural reticulation and miliary nodules. This is nonspecific. Previously sarcoidosis was suggested. Numerous other etiologies can also account for this appearance. 5. Extensive atherosclerosis. 6. Polyethylene wearing of the total right hip arthroplasty. ACT 112: Negative or not required by law. Electronically signed by: Jaspreet Taylor M.D. 11/13/2019 2:30 PM Dictated: 11/13/19 1422 Transcribed: 11/13/19 1422 SINGLE VIEW CHEST CLINICAL HISTORY: Dyspnea. FINDINGS: An AP, portable, upright chest radiograph is compared to study dated 10/28/2019. Correlation is made with chest CT dated 05/10/2019. The examination is degraded by portable technique and patient rotation. The patient is status post midline sternotomy. The heart is enlarged noting atherosclerotic calcification of the thoracic aorta. There is pulmonary vascular congestion. There is volume loss in the right lung. Chronic interstitial thickening and nodularity is similar to previous. Scarring/atelectasis is noted at the lung bases. No large pleural effusion is identified. No pneumothorax is seen. The skeletal structures are osteopenic. The bony thorax is grossly intact. IMPRESSION: Cardiomegaly with evidence of mild congestive failure. ACT 112: Negative or not required by law. Electronically signed by: Guilherme Cummings M.D. 11/13/2019 1:06 PM Dictated: 11/13/19 1304 Transcribed: 11/13/19 1304 Hospital Course (1) Recurrent Clostridium difficile diarrhea: (2) Sepsis: On admission meet sepsis criteria current CMS guidelines with leukocytosis 20.03K, tachycardic, lactic acid 3.4 Related to C-diff Lactic acid dropped to 2 Received gentle hydration on admission On Vanco oral/IV Flagyl Since pt symptoms improve on oral Vanco, ID recommended to continue oral Vanco for 1 month WBC back to normal Blood cx no growth so far (3) Diffuse abdominal pain: Present on admission with worsening episode of diarrhea and abdominal pain CT abd/pelvis showed circumferential wall thickening of the mid to lower rectum could represent a mild proctitis recently completed course of Vanco oral for Cdiff ID on board recommended to continue oral vanco for 1 month GI on board Case discussed with Dr. Root recommended to continue Vanco enema until tomorrow due to lack of ileus Then continue Flagyl and oral vanco on discharge as per GI If pt has another episode of Cdiff, consider fecal transplant outpatient GI recommended to continue Flagyl for 2 weeks and Vanco for 1 month Resolved (4) ESRD (end stage renal disease) on dialysis: HD Last HD was on Sunday continue renernestine Renal diet Nephrology on board OK from nephrology standpoint to discharge home Plan to get an extra 15minutes dialysis each treatment this week (5) Type 2 diabetes mellitus: Last A1c 7.6 on 10/07/2019 Not on any oral hypoglycemics or insulin Lantus/NovoLog per protocol (6) PAF (paroxysmal atrial fibrillation): History of atrial fibrillation and atrial flutter status post ablation Rate controlled on metoprolol Continue warfarin for anticoagulation with INR 2 today Follow up with the coag clinic (7) Chronic right heart failure: HD for volume control, continue metoprolol stable (8) CAD (coronary artery disease): denies any chest pain Continue metoprolol (9) HTN (hypertension): BP in the low side Continue monitor BP closely On Metoprolol with parameters (10) 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: Hgb 8.5 today Continue monitor cbc Stable (11) GERD (gastroesophageal reflux disease): continue PPI Lung Nodules Chronic changes at the lung bases with subpleural reticulation and miliary nodules. Finding discussed with patient Follow up with your PCP (12) DVT prophylaxis: On warfarin, INR 2.1 Hypomagnesemia Due to diarrhea Mg 1.9 today Monitor electrolytes Hx of Recurrent DVT/PE S/P IVC filter Continue on warfarin with INR 2.1 yesterday Disposition Possible discharge home tomorrow Total Time Total Time Spent Total Time Spent (In Minutes): 35 minutes Total Time Includes: Examination of the Patient, Discharge Planning, Medication Reconciliation, Communication With Other Providers and Other Discharge Plan Discharge Items Patient Disposition: Home - Home Health Services Reason For Visit: SEPSIS, PROCTITIS, CDIFF Discharge Diagnosis: (1) Sepsis: (2) C-diff Diarrhea: (3) Diffuse abdominal pain: (4) ESRD (end stage renal disease) on dialysis (5) Type 2 diabetes mellitus: (6) PAF (paroxysmal atrial fibrillation): (7) Chronic right heart failure: (8) CAD (coronary artery disease): (9) HTN (hypertension): (10) 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: Activity: Resume your previous activity Non-emergency contact: Primary Care Provider and Field Trainer Call non-emergency contact if: you have any medication questions and your temperature is above 101 Follow-up/Referrals: Zach Gooden MD [Primary Care Provider] - Diet: Dialysis Renal and Heart Healthy Addtl Attending Provider Instructions: Follow up with your primary care provider Dr. Gooden on 11/24 @ 3PM Continue physical therapy with home health services Follow up with the coumadin clinic to monitor your PT/INR Follow with nephrology to continue with your dialysis Fall precaution Seek medical attention if the diarrhea worsening Complete the course of oral vanco and flagyl Pending Studies at Discharge: No Stand-Alone Forms: My [facility] [employer], Smoking Cessation Medications and DC Order Prescriptions: New vancomycin 250 mg capsule 500 mg PO Q6H 30 Days Qty: 240 RF: 0 metronidazole [Flagyl] 500 mg tablet 500 mg PO TID 14 Days Qty: 42 RF: 0 Continued metoprolol succinate 50 mg Tablet Extended Release 24 Hr 50 mg PO DAILY RF: 0 omega [id number] oil [Fish Oil] 1,000 mg (120 mg-180 mg) Capsule 1 cap PO DAILY RF: 0 metoprolol tartrate 25 mg tablet 12.5 mg PO 3XWK RF: 0 omeprazole 20 mg capsule,delayed release(DR/EC) 20 mg PO DAILY RF: 0 cholecalciferol (vitamin D3) [Vitamin D3] 1,000 unit Capsule 1,000 unit PO DAILY RF: 0 fluticasone propionate [Flonase Allergy Relief] 50 mcg/actuation Malott,Suspension 1 spray INTRANASAL DAILY PRN (Reason: Nasal Congestion) RF: 0 docusate sodium 100 mg Tablet 100 mg PO BID PRN (Reason: Constipation) RF: 0 lidocaine-prilocaine 2.5-2.5 % cream 1 applic topical 3XWK RF: 0 warfarin 5 mg tablet 5 mg PO SUTUTHSA RF: 0 Nephro-Neeraj 0.8 mg tablet 0.8 mg PO DAILY RF: 0 warfarin 5 mg Tablet 2.5 mg PO MOWEFR RF: 0 sevelamer carbonate [Renvela] 800 mg Tablet 800 mg PO BID RF: 0 sevelamer carbonate [Renvela] 800 mg Tablet 1,600 mg PO DAILYBD RF: 0 Discharge Orders: Discharge Order (Routine); Ordered 11/16/19 Ordered By: Mariusz Gonzalez Admission Data Admit Date/Time: 11/13/19 15:28 Attending Provider: Mariusz Gonzalez Admit Provider: Mariusz Gonzalez Primary Care Provider: Zach Gooden Other Providers: Bhavana Cason ; Katlyn Cortes ; Lynne Dominguez ; Wayne Mckeon ; [facility] Other Interventions: Discharge Summary Assessment (RN) Last Done: 11/16/19 14:49 DC Date/Time DO NOT enter until pt leaves facility: 11/16/19 16:05
== END 2019-11-16 16:05 | disposition home health service (06) | DRG 871 ==
LOC: ED 11:52 → 2E 15:28

== ENCOUNTER 2020-09-07 05:30 | Inpatient (IN) ==
--- NOTE | 2020-09-07 05:52 | Emergency Department Note ---
History of Present Illness General Chief complaint: Shoulder Pain Stated complaint: SHOULDER/CHEST DISCOMFORT Time Seen by Provider: 09/07/20 05:34 Source: patient Mode of arrival: EMS Limitations: no limitations History of Present Illness Provider complaint: Left chest pain, left shoulder pain Onset (ago): hour(s) 1 Location: chest Radiation: extremity Severity: moderate Pain Consistency: + intermittent Maximum Pain Intensity: 5 Current Pain Intensity: 5 Quality: + sharp Relieved By: + none Exacerbated By: + none Associated symptoms: + shortness of breath Treatments prior to arrival: none This is an 85-year-old male presents the emergency department via EMS with complaints of left chest and left shoulder pain. Patient states he was sitting on the toilet as he was awake and getting ready for dialysis when he suddenly experienced left-sided chest pain that radiated into his shoulder. Patient den ies that he was straining. Patient states he had no pain yesterday and felt in his usual state of health. Patient does have significant cardiac history including prior CABG. 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 Patient denies any recent change in activity or concern for injury. Patient denies any change in medications. Patient states pain is worse lying down, better sitting up. Patient denies any increased pain with movement of the left upper extremity or turning of the head neck. Patient denies any coming nausea or vomiting. Denies any recent change in bowel or bladder function, denies URI symptoms, fevers or chills. Patient denies any known exposure to coronavirus. Pt seen during a time of high acuity and national emergency pandemic while wearing PPE. Home Medications Medication Instructions Recorded Confirmed Type cholecalciferol (vitamin D3) 1,000 unit PO HS 06/14/18 09/07/20 History [Vitamin D3] docusate sodium 100 mg PO BID PRN 03/18/19 09/07/20 History omega 2-qiu-wsy-fish oil [Fish Oil] 1 cap PO DAILY 05/21/19 09/07/20 History lidocaine-prilocaine 1 applic TOPICAL 3XWK 11/13/19 09/07/20 History sevelamer carbonate [Renvela] 1,600 mg PO DAILYBD 11/13/19 09/07/20 History sevelamer carbonate [Renvela] 800 mg PO BID 11/13/19 09/07/20 History warfarin 5 mg PO DAILY 11/13/19 09/07/20 History B complex-vitamin C-folic acid 1 tab PO DAILY 09/07/20 09/07/20 History [Nephro-Neeraj] buprenorphine 1 patch TOPICAL WK 09/07/20 09/07/20 History diphenoxylate-atropine 1 - 2 tab PO UD PRN MDD 8 tabs 09/07/20 09/07/20 History fluticasone propionate [Flonase] 1 spray INTRANASAL DAILY 09/07/20 09/07/20 History menthol [Ice Blue Gel] 1 applic TOPICAL UD PRN 09/07/20 09/07/20 History metoprolol tartrate 50 mg PO SUMOWEFR 09/07/20 09/07/20 History ondansetron HCl 4 mg PO Q6 PRN 09/07/20 09/07/20 History vancomycin 125 mg PO DAILY 09/07/20 09/07/20 History Allergies Allergy/AdvReac Type Severity Reaction Status Date / Time aspirin Allergy Unknown . 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 Pulmonary embolus Type 2 diabetes mellitus Surgical History H/O carotid endarterectomy "2008" H/O removal of testicle H/O superior vena cava filter placement History of hydrocelectomy History of total hip replacement S/P ablation of atrial flutter S/P aortic valve replacement "bio prosthetic" S/P cardiac cath "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" Family History Mother Hypertension Brother Stroke Social History Smoking Status: Never smoker Second Hand Exposure: No; Hx Alcohol Use: No Hx Substance Use: No Preferred Language: Syriac Communication Ability: Effective Visual Impairment: Partially Limited Rn Clinician Required: No Beliefs That Will Affect Care: None marital status: Current Living Situation: Spouse Current Living Situation Comment: lives with Vannesa and six dogs in three story home. How many Children do You have: 4 Feels Safe at Home: Yes Assistive Devices: Walker Review of Systems See HPI for pertinent positives & negatives. and A total of 10 systems reviewed and were otherwise negative Physical Exam Vital Signs Vital Signs - 24 hr 09/07/20 05:32 09/07/20 05:37 09/07/20 06:00 Temperature 36.4 C L Temperature Source Oral Pulse Rate 85 81 105 H Pulse Rate [Left Finger] Pulse Rate from SpO2 Sensor 82 Respiratory Rate 22 14 15 Respiratory Effort / Characteristics Non-Labored Spontaneous Respiratory Depth Normal Blood Pressure 123/71 123/71 108/73 Blood Pressure [Right Arm] Blood Pressure Mean 88 98 85 Blood Pressure Mean [Right Arm] Pulse Oximetry 98 98 95 Oxygen Delivery Method Room Air Sepsis New/Unexplained Change in Mental Status N/A Sepsis Action Taken by Nursing No Action Required 09/07/20 06:30 09/07/20 07:10 Temperature Temperature Source Pulse Rate 105 H Pulse Rate [Left Finger] 106 H Pulse Rate from SpO2 Sensor 105 H Respiratory Rate 18 22 Respiratory Effort / Characteristics Respiratory Depth Blood Pressure 110/65 Blood Pressure [Right Arm] 104/69 Blood Pressure Mean 72 Blood Pressure Mean [Right Arm] 80 Pulse Oximetry 95 96 Oxygen Delivery Method Room Air Room Air Sepsis New/Unexplained Change in Mental Status Sepsis Action Taken by Nursing GENERAL: alert, well appearing, well nourished, no distress, non-toxic EYE EXAM: normal conjunctiva, PERRL and EOM's grossly intact OROPHARYNX: no exudate, no erythema, lips, buccal mucosa, and tongue normal and mucous membranes are moist NECK: supple, no nuchal rigidity, no adenopathy, non-tender LUNGS: Clear to auscultation. Normal chest wall mechanics, no w/r/r HEART: no murmurs, S1 normal and S2 normal, well-healed vertical midline sternotomy scar, mild discomfort with palpation of the left anterior superior chest wall ABDOMEN: abdomen soft, non-tender, normo-active bowel sounds, no masses, no rebound or guarding. BACK: Back is symmetrical on inspection and there is no deformity, no midline tenderness, no CVA tenderness. SKIN: no rashes and no bruising UPPER EXTREMITIES: upper extremities are grossly normal. FROM, nml pulses b/l. Mild discomfort with palpation over the anterior aspect of the humeral head and AC joint, no obvious trauma, no deformities noted. LOWER EXTREMITIES: No pitting edema. FROM, nml pulses b/l. NEURO EXAM: Normal sensorium, cranial nerves II-XII grossly intact, normal speech, no gross weakness of arms, no gross weakness of legs. Gross sensation intact. Course Course 702: Pt updated on all results. 727: Discussed with Dr. Dockery. Administered Medications Insulin Aspart (Insulin Aspart 100 Units/Ml 3 Ml Pen) 0 units SC ACHS [facility] Stop: 10/07/20 11:29 Last Admin: 09/07/20 21:03 Dose: 1 units Documented by: [id number] Cosigned by: [id number] Admin: 09/07/20 17:24 Dose: 2 units Documented by: [id number] Cosigned by: [id number] Admin: 09/07/20 15:50 Dose: Not Given Documented by: [id number] Cosigned by: [id number] Insulin Glargine (Insulin Glargine Solostar 100 Units/Ml 3 Ml Pen) 0 - 8 units SC BID JAMES Stop: 10/07/20 11:29 Last Admin: 09/07/20 21:02 Dose: 8 units Documented by: [id number] Cosigned by: [id number] Admin: 09/07/20 16:29 Dose: 4 units Documented by: [id number] Cosigned by: [id number] Sevelamer HCl (Sevelamer Hcl 800 Mg Tablet) 800 mg PO BID@0800,1200 JAMES Stop: 10/07/20 11:59 Last Admin: 09/07/20 15:50 Dose: Not Given Documented by: [id number] Sevelamer HCl (Sevelamer Hcl 800 Mg Tablet) 1,600 mg PO DAILYBD JAMES Stop: 10/07/20 15:29 Last Admin: 09/07/20 16:16 Dose: 1,600 mg Documented by: [id number] Vitamin D (Cholecalciferol 1,000 Units 25 Mcg Tab) 1,000 units PO HS JAMES Stop: 10/07/20 20:59 Last Admin: 09/07/20 20:30 Dose: 1,000 units Documented by: [id number] Discontinued Medications Fentanyl Citrate (Fentanyl Citrate 100 Mcg/2 Ml Vial) 50 mcg IV Q15M PRN PRN Reason: Pain Stop: 09/21/20 06:16 Last Admin: 09/07/20 09:20 Dose: 50 mcg Documented by: [id number] Admin: 09/07/20 08:59 Dose: 50 mcg Documented by: [id number] Admin: 09/07/20 06:26 Dose: 50 mcg Documented by: [id number] Heparin Sodium (Porcine) (Heparin Sod (Porcine) 1000 Unit/Ml 10 Ml Vial) 1,000 units IV ONE ONE Stop: 09/07/20 10:20 Last Admin: 09/07/20 14:28 Dose: Not Given Documented by: [id number] Heparin Sodium (Porcine) (Heparin Sod (Porcine) 1000 Unit/Ml 10 Ml Vial) 400 units IV Q1H JAMES Stop: 09/07/20 12:31 Last Admin: 09/07/20 14:28 Dose: Not Given Documented by: [id number] Admin: 09/07/20 14:28 Dose: Not Given Documented by: [id number] Admin: 09/07/20 14:28 Dose: Not Given Documented by: [id number] Metoprolol Tartrate (Metoprolol Tartrate 50 Mg Tab) 50 mg PO NOW STA Stop: 09/07/20 19:08 Last Admin: 09/07/20 20:30 Dose: 50 mg Documented by: [id number] Medical Decision Making Differential Diagnosis Differential diagnoses includes but is not limited to acute coronary syndrome, myocardial infarction, pericarditis, pulmonary embolus, aortic dissection, pneumonia, pneumothorax, musculoskeletal, shingles, esophageal. Medical Records Attestation: I reviewed the patient's medical records. Home Medications Current Medication List: was personally reviewed by me Laboratory Data Attestation: I reviewed the patient's lab results. Result diagrams: 09/07/20 05:38 09/07/20 05:38 Lab Results 09/07/20 09/07/20 09/07/20 Range/Units 05:38 05:38 05:38 WBC 9.25 (4.8-10.8) K/uL RBC 2.96 L (4.7-6.1) M/uL Hgb 11.1 L (14.0-18.0) g/dL Hct 34.4 L (42-52) % MCV 116.2 H (80-100) fL MCH 37.5 H (25-34) pg MCHC 32.3 (32-36) g/dL RDW Std Deviation 65.0 H (36.4-46.3) fL RDW Coeff of Elvia 15.3 H (11.5-14.5) % Plt Count 151 (130-400) K/uL MPV 12.2 H (7.4-10.4) fL Immature Gran % (Auto) 0.5 % Neut % (Auto) 54.9 % Lymph % (Auto) 31.8 % [place] % (Auto) 10.2 % Eos % (Auto) 2.3 % Baso % (Auto) 0.3 % Neut # (Auto) 5.08 (1.4-6.5) K/uL Lymph # (Auto) 2.94 (1.2-3.4) K/uL [place] # (Auto) 0.94 H (0.11-0.59) K/uL Eos # (Auto) 0.21 (0-0.5) K/uL Baso # (Auto) 0.03 (0-0.2) K/uL Immature Gran # (Auto) 0.05 H (0.00-0.02) K/uL Macrocytosis Present PT Cancelled INR Cancelled Sodium 135 L (136-145) mmol/L Potassium 4.3 (3.5-5.1) mmol/L Chloride 96 L (98-107) mmol/L Carbon Dioxide 27 (21-32) mmol/L Anion Gap 12.0 H (3-11) BUN 70 H (7-18) mg/dl Creatinine 7.25 H* (0.6-1.4) mg/dl Est Cr Clr Drug Dosing 8.3 ml/min Est GFR ( Amer) 7.2 Est GFR (Non-Af Amer) 6.2 BUN/Creatinine Ratio 9.8 L (10-20) Glucose 167 H (70-99) mg/dl Calcium 8.6 (8.5-10.1) mg/dl Magnesium 2.9 H (1.8-2.4) mg/dl Total Bilirubin 0.4 (0.2-1) mg/dl AST 27 (15-37) U/L ALT 31 (12-78) U/L Alkaline Phosphatase 175 H (45-117) U/L Troponin I 0.065 H* (0-0.045) ng/ml NT-Pro-B Natriuret Pep 33163 H (0-1800) pg/ml Total Protein 9.0 H (6.4-8.2) gm/dl Albumin 3.0 L (3.4-5.0) gm/dl Globulin 6.0 H (2.5-4.0) gm/dl Albumin/Globulin Ratio 0.5 L (0.9-2) SARS-CoV-2 Ag (Rapid) (Negative) 09/07/20 09/07/20 Range/Units 07:03 08:00 WBC (4.8-10.8) K/uL RBC (4.7-6.1) M/uL Hgb (14.0-18.0) g/dL Hct (42-52) % MCV (80-100) fL MCH (25-34) pg MCHC (32-36) g/dL RDW Std Deviation (36.4-46.3) fL RDW Coeff of Elvia (11.5-14.5) % Plt Count (130-400) K/uL MPV (7.4-10.4) fL Immature Gran % (Auto) % Neut % (Auto) % Lymph % (Auto) % [place] % (Auto) % Eos % (Auto) % Baso % (Auto) % Neut # (Auto) (1.4-6.5) K/uL Lymph # (Auto) (1.2-3.4) K/uL [place] # (Auto) (0.11-0.59) K/uL Eos # (Auto) (0-0.5) K/uL Baso # (Auto) (0-0.2) K/uL Immature Gran # (Auto) (0.00-0.02) K/uL Macrocytosis PT 33.8 H INR 3.4 H Sodium (136-145) mmol/L Potassium (3.5-5.1) mmol/L Chloride (98-107) mmol/L Carbon Dioxide (21-32) mmol/L Anion Gap (3-11) BUN (7-18) mg/dl Creatinine (0.6-1.4) mg/dl Est Cr Clr Drug Dosing ml/min Est GFR ( Amer) Est GFR (Non-Af Amer) BUN/Creatinine Ratio (10-20) Glucose (70-99) mg/dl Calcium (8.5-10.1) mg/dl Magnesium (1.8-2.4) mg/dl Total Bilirubin (0.2-1) mg/dl AST (15-37) U/L ALT (12-78) U/L Alkaline Phosphatase (45-117) U/L Troponin I (0-0.045) ng/ml NT-Pro-B Natriuret Pep (0-1800) pg/ml Total Protein (6.4-8.2) gm/dl Albumin (3.4-5.0) gm/dl Globulin (2.5-4.0) gm/dl Albumin/Globulin Ratio (0.9-2) SARS-CoV-2 Ag (Rapid) Negative (Negative) Imaging Data My Impression: X-ray: I interpreted the following studies. Chest: A single view study of the chest was reviewed and was negative for focal infiltrate, effusion, pulmonary edema, or wide mediastinum. Mild cardiomegaly noted, midline sternotomy wires noted, slightly increased interstitial markings bilaterally. Calcification noted along the mid right lung. ECG Data Attestation: I personally reviewed and interpreted this ECG as follows: Indication: + chest pain Rate (beats per minute): 81 ECG Intervals/blocks: + First degree AV block, + Normal QRS and + Normal QT ECG [place]: + Normal ECG ST segments: + Normal ST segments Comparison ECG Date: from (11/13/2019) Change: no significant change Blood Pressure Blood Pressure Findings: Elevated blood pressure Blood Pressure Disposition: further management by hospitalist [facility] Narrative This is an elderly male who presents via EMS with abrupt onset of left-sided chest pain that radiated into his shoulder. Patient does have significant cardiac history including prior CABG. Patient felt well prior to going to bed last night, no obvious etiology of the pain. Patient denies any recent change in diet, medications, or activity. Patient placed on a chain repairer, labs drawn and sent, chest x-ray performed. Patient's chest x-ray essentially unchanged compared to prior. Patient's blood work did reveal an elevated troponin. While patient does have a history of chronic kidney disease, he does not have chronically positive troponins and review of EMR. No acute EKG changes were seen. Patient had been given aspirin and morphine by EMS, due to mildly low blood pressures, patient was given fentanyl here. Patient is already chronically anticoagulated. Patient's other labs reassuring despite chronic appearing abnormalities. Case discussed with hospitalist due to elevated heart score and overall risk. Patient made aware of all results, and was in agreement with plan. At this time I do not suspect PE, dissection, tamponade, pleural effusion, mediastinitis, GI bleed, bacteremia/sepsis. An order was placed for continuous cardiac monitoring. The monitor shows a rate of _86_ with _normal sinus rhythm. Impression & Plan Atypical chest pain, ESRD (end stage renal disease) on dialysis, Elevated troponin Discharge Plan Visit Data Chief Complaint: Shoulder Pain Stated Complaint: SHOULDER/CHEST DISCOMFORT ED Provider: Ramya Reina Discharge Problem: Atypical chest pain, ESRD (end stage renal disease) on dialysis, Elevated troponin Patient Disposition: Admitted As Inpatient Discharge Instructions Interventions: ED Discharge Assessment Last Done: 09/07/20 09:42
[2020-09-07 06:02] LABS: Basophils # (auto) 0.03 K/uL (0-0.2); Basophils % (auto) 0.3 %; Eosinophils # (auto) 0.21 K/uL (0-0.5); Eosinophils % (auto) 2.3 %; Hematocrit (blood only) 34.4 % (42-52); Hemoglobin 11.1 g/dL (14.0-18.0); Immature Granulocytes # (auto) 0.05 K/uL (0.00-0.02); Immature Granulocytes % (auto) 0.5 %; Lymphocytes # (auto) 2.94 K/uL (1.2-3.4); Lymphocytes % (auto) 31.8 %; Mean Corpuscular Hemoglobin 37.5 pg (25-34); Mean Corpuscular Hgb Conc 32.3 g/dL (32-36); Mean Corpuscular Volume 116.2 fL (80-100); Mean Platelet Volume 12.2 fL (7.4-10.4); Monocytes # (auto) 0.94 K/uL (0.11-0.59); Monocytes % (auto) 10.2 %; Neutrophils # (auto) 5.08 K/uL (1.4-6.5); Neutrophils % (auto) 54.9 %; Platelet Count 151 K/uL (130-400); RDW Coefficient of Variation 15.3 % (11.5-14.5); Red Blood Count 2.96 M/uL (4.7-6.1); White Blood Count 9.25 K/uL (4.8-10.8)
[2020-09-07] MEDS: fentaNYL citrate 100 MCG/2 ML VIAL IV PRN ×3 (06:26→09:20)
[2020-09-07 06:29] LABS: Macrocytosis Present
--- NOTE | 2020-09-07 06:41 | XRay Report ---
XR chest 1V portable CLINICAL HISTORY: Chest pain. COMPARISON STUDY: Chest radiograph November 13, 2019. FINDINGS: Lung volumes are normal. Median sternotomy wires are noted. There is a prosthetic cardiac v alve. Cardiac mediastinal silhouette is stable. No consolidation is identified. Mild lower lung inter stitial thickening appears unchanged. There is no pneumothorax or pleural effusion. IMPRESSION: No acute cardiopulmonary findings. No significant change in appearance of the chest. ACT 112: Negative or not required by law. Electronically signed by: John Emanuel M.D. 09/07/2020 6:40 AM
[2020-09-07 06:54] LABS: Albumin Globulin Ratio 0.5 (0.9-2); BUN Creatinine Ratio 9.8 (10-20); Bilirubin,Total 0.4 mg/dl (0.2-1); Calcium 8.6 mg/dl (8.5-10.1); Creatinine Clr Calc Pharmacy 8.3 ml/min; Est GFR (African American) 7.2; Est GFR (Non-African American) 6.2; Magnesium 2.9 mg/dl (1.8-2.4); Potassium 4.3 mmol/L (3.5-5.1); Troponin I 0.065 ng/ml (0-0.045)
[2020-09-07 07:28] LABS: INR 3.4 (0.9-1.1); Prothrombin Time 33.8 Seconds (9.0-12.0)
--- NOTE | 2020-09-07 09:31 | History & Physical Report ---
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 Admit to PCU obtain echocardiogram cycle troponin, ecg consult cardiology CP currently absent, prn Nitro NPO until seen by cardiology does not appear to be MSK component as not reproducible but will obtain L shoulder xray Pt due for HD, nephrology contacted to arrange - may be volume overload com ponent EKG compared - nonspecific t wave changes noted, repeat ECG now (3) CAD (coronary artery disease): hx of nonobstructive CAD on metoprolol, not on ASA 2/2 to allergy work up as above (4) Chronic heart failure with preserved ejection fraction (HFpEF): Appears euvolemic HD for volume control, continue metoprolol Daily weights, strict I&O last echo 10/2019 EF 55-60%, bioprosthetic AVR, moderate MR, mild TR, elevated systolic pulmonary pressure 48 mmHg (5) PAF (paroxysmal atrial fibrillation): Rate and rhythm controlled on metoprolol, but per patient does not take on dialysis days INR 3.4 today, hold warfarin, home regimen 5 mg daily Goal INR 2-3 (6) Type 2 diabetes mellitus: Last A1C 7.6 obtain A1C in a.m. 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 Craig upon discharge Pt was seen and examined in collaboration with Dr. Barnes, please see addendum History of Present Illness Chief Complaint: Chest pain and left shoulder pain since 3:30 a.m. 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 He states he woke up this morning at approximately 3:30 AM to get ready for dialysis and was sitting on the toilet when he developed a sharp stabbing left-sided chest discomfort with radiation to left shoulder. Chest pain would come and go, made worse with sitting forward, nothing improved pain, not exacerbated with arm movement, and without associated nausea, vomiting, shortness of breath or diaphoresis. He denies prior pain in the past. He denies recent fever, chills, sweats, lightheadedness, dizziness, syncope, palpitations, edema, nausea, vomiting, abdominal pain, diarrhea, melena, hematochezia. Patient is due for dialysis today. He denies any recent activity or heavy lifting. He lives at home with his . He is [facility] at home patient. He did not receive any ASA secondary to allergy. He states he gets very sick in the stomach after taking aspirin. Patient did not receive nitro. Currently pain is absent. In ED patient remained hemodynamically stable. Lab work notable for H&H 11.1 and 34.4, WBC 9.25k, platelet 151, INR 3.4, sodium 135, BUN 70, creatinine 7.25, glucose 167, mag 2.9, troponin 0.065, proBNP 11,238. Rapid Covid negative. Chest x-ray negative for acute abnormality. Allergies Allergy/AdvReac Type Severity Reaction Status Date / Time aspirin Allergy Unknown . Verified 09/07/20 06:16 salicylates Allergy Unknown UNKNOWN Verified 09/07/20 06:16 Home Medications Medication Instructions Recorded Confirmed Type cholecalciferol (vitamin D3) 1,000 unit PO HS 06/14/18 09/07/20 History [Vitamin D3] docusate sodium 100 mg PO BID PRN 03/18/19 09/07/20 History omega 7-qkk-[id number]-fish oil [Fish Oil] 1 cap PO DAILY 05/21/19 09/07/20 History lidocaine-prilocaine 1 applic TOPICAL 3XWK 11/13/19 09/07/20 History sevelamer carbonate [Renvela] 1,600 mg PO DAILYBD 11/13/19 09/07/20 History sevelamer carbonate [Renvela] 800 mg PO BID 11/13/19 09/07/20 History warfarin 5 mg PO DAILY 11/13/19 09/07/20 History B complex-vitamin C-folic acid 1 tab PO DAILY 09/07/20 09/07/20 History [Nephro-Neeraj] buprenorphine 1 patch TOPICAL WK 09/07/20 09/07/20 History diphenoxylate-atropine 1 - 2 tab PO UD PRN MDD 8 tabs 09/07/20 09/07/20 History fluticasone propionate [Flonase] 1 spray INTRANASAL DAILY 09/07/20 09/07/20 History menthol [Ice Blue Gel] 1 applic TOPICAL UD PRN 09/07/20 09/07/20 History metoprolol tartrate 50 mg PO SUMOWEFR 09/07/20 09/07/20 History ondansetron HCl 4 mg PO Q6 PRN 09/07/20 09/07/20 History vancomycin 125 mg PO DAILY 09/07/20 09/07/20 History Past Med/Surg History Medical History Anemia 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 Aortic valve insufficiency Atrial flutter CAD (coronary artery disease) DVT (deep venous thrombosis) " 01/13/09 left leg " Dyslipidemia ESRD (end stage renal disease) on dialysis GERD (gastroesophageal reflux disease) Gram-positive bacteremia HTN (hypertension) Hx of amaurosis fugax "01/27/09, OD " PMR (polymyalgia rheumatica) 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 Pulmonary embolus Type 2 diabetes mellitus Surgical History H/O carotid endarterectomy "2008" H/O removal of testicle H/O superior vena cava filter placement History of hydrocelectomy History of total hip replacement S/P ablation of atrial flutter S/P aortic valve replacement "bio prosthetic" S/P cardiac cath "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" Family History Mother Hypertension Brother Stroke Social History Smoking Status: Never smoker Second Hand Exposure: No; Hx Alcohol Use: No Hx Substance Use: No Preferred Language: Luxembourgish Communication Ability: Effective Visual Impairment: Partially Limited Gyroscopic Instrument Tester Required: No Beliefs That Will Affect Care: None marital status: Current Living Situation: Spouse Current Living Situation Comment: lives with Vannesa and six dogs in three story home. How many Children do You have: 4 Feels Safe at Home: Yes Assistive Devices: Walker Review of Systems Review of Systems: All systems reviewed & are unremarkable except as noted in HPI & below Physical Exam Physical Exam: Constitutional: Elderly, male, sitting in recliner, WD/WN, vitals as above, NAD, sitting up in bed, pleasant, conversing easily Head: Normocephalic, Atraumatic Eyes: PERRL, conjunctivae normal, anicteric sclerae ENMT: external ear and nose normal, oropharynx normal Neck: trachea midline, no thyromegaly normal visual inspection Respiratory: normal respiratory effort, lungs clear to auscultation, no wheeze, rales, rhonchi. Normal insp/exp effort, no accessory muscle use Cardiovascular: RRR, 2/6 JUNIOR noted throughout precordium, b/l venous stasis changes noted, no erythema, warmth,Vessels: no JVD or carotid bruit Chest: normal inspection of chest, sternal scar noted, no pain to palpation of chest wall or exacerbation of pain with b/l shoulder ROM activity Abdomen: normal bowel sounds, soft, nontender, no hepatosplenomegaly Musculoskeletal: no cyanosis or clubbing, extremities motor strength 5/5 Skin: no rashes, warm and dry normal turgor Neurologic: PERRL, EOMI, accommodation nl, no face palsy, no dysarthria CN's II-XI intact bilaterally and moves all extremities Psychiatric: A+Ox3, euthymic affect : deferred Results & Data Results & Data ([facility]) Vital Signs (Past 12 Hours) Vital Signs Temp Pulse Pulse Resp BP BP Pulse Ox 09/07/20 09:00 91 H 22 111/63 95 09/07/20 07:10 106 H 22 104/69 96 09/07/20 06:30 105 H 18 110/65 95 09/07/20 06:00 105 H 15 108/73 95 09/07/20 05:37 81 14 123/71 98 09/07/20 05:32 36.4 C L 85 22 123/71 98 Laboratory Results Short CBC 09/07/20 09/07/20 Range/Units 05:38 05:38 WBC 9.25 (4.8-10.8) K/uL Hgb 11.1 L (14.0-18.0) g/dL Hct 34.4 L (42-52) % Plt Count 151 (130-400) K/uL Troponin I 0.065 H* (0-0.045) ng/ml BMP 09/07/20 05:38 Sodium 135 L Potassium 4.3 Chloride 96 L Carbon Dioxide 27 BUN 70 H Creatinine 7.25 H* Glucose 167 H Calcium 8.6 Cardiac Enzymes 09/07/20 Range/Units 05:38 Troponin I 0.065 H* (0-0.045) ng/ml Liver Function 09/07/20 Range/Units 05:38 Total Bilirubin 0.4 (0.2-1) mg/dl AST 27 (15-37) U/L ALT 31 (12-78) U/L Alkaline Phosphatase 175 H (45-117) U/L Albumin 3.0 L (3.4-5.0) gm/dl Diagnostic Findings CXR: IMPRESSION: No acute cardiopulmonary findings. No significant change in appearance of the chest. Medications Administered Fentanyl Citrate (Fentanyl Citrate 100 Mcg/2 Ml Vial) 50 mcg IV Q15M PRN PRN Reason: Pain Stop: 09/21/20 06:16 Last Admin: 09/07/20 09:20 Dose: 50 mcg Documented by: [id number] Admin: 09/07/20 08:59 Dose: 50 mcg Documented by: [id number] Admin: 09/07/20 06:26 Dose: 50 mcg Documented by: [id number] ECG Rate (beats per minute): 81 Rhythm: normal sinus and sinus rhythm Findings: + 1st degree AV block and + nonspecific-ST abn Code Status & VTE Plan Code Status Full Code VTE Prophylaxis Plan VTE Prophylaxis will be ordered: No Reason for no VTE drug order: Treatment not indicated Reason for no VTE mechanical prophylaxis: Treatment not indicated Supervising Physician Co-Signing Physician Notes Patient is an 84-year-old male with history of end-stage renal disease on hemodialysis, S/P AVR, diabetes mellitus, paroxysmal atrial fibrillation on chronic anticoagulation with Coumadin and other medical problems presents with history of sudden onset of left-sided chest pain radiating to the shoulder which he describes as sharp stabbing pain, intermittent, worsens when lying down and improves with sitting. Please review HPI for complete details of presentation. On exam patient is moderately built and nourished, no apparent distress, normocephalic atraumatic, lungs are clear to auscultation, S1, S2, and systolic murmur, bilateral lower extremity edema, alert, awake, oriented, no focal deficits, abdomen soft, nontender, pulses present. Patient is admitted for management of chest pain rule out ACS. Given comorbidities, patient likely not a candidate for cardiac catheterization and aggressive management. Given known history of intolerance to aspirin, could not provide aspirin. Conservative management with metoprolol, nitroglycerin as needed. INR supratherapeutic 3.4. Will consult cardiology for input. Trend cardiac enzymes. Consulted nephrology for hemodialysis. I personally reviewed the record. Patient is interviewed and examined at bedside. Patient's care is coordinated with Sofia Sepulveda PA-C. Please refer to the documentation above for details of patient's presentation and for discussion of other issues.
--- NOTE | 2020-09-07 09:42 | XRay Report ---
XR shoulder LT min 2V routine CLINICAL HISTORY: Left shoulder pain. COMPARISON STUDY: None. FINDINGS: No fracture or dislocation within the left shoulder. The left clavicle is intact. Mild cart ilage space narrowing within the glenohumeral joint and acromioclavicular joints consistent with dege nerative change. IMPRESSION: 1. No fracture or dislocation within the left shoulder. 2. Mild osteoarthritis. ACT 112: Negative or not required by law. Electronically signed by: Vincent Appiah M.D. 09/07/2020 9:41 AM
[2020-09-07] MEDS ORDERED: GLUCOSE 40% GEL 15 GM TUBE PO PRN (09:57)
[2020-09-07] MEDS ORDERED: GLUCOSE 10 TABS/TUBE PO PRN (09:57)
[2020-09-07] MEDS ORDERED: ONDANSETRON INJ 2 MG/ML 2 ML VIAL IV PRN (09:57)
[2020-09-07] MEDS ORDERED: CARBOHYDRATES FOR HYPOGLYCEMIA PO PRN (09:57)
[2020-09-07] MEDS ORDERED: POLYETHYLENE (MIRALAX) 17 GM PACK PO PRN (09:57)
[2020-09-07] MEDS ORDERED: DEXTROSE 50% 50 ML SYRINGE IV PRN (09:57)
[2020-09-07] MEDS ORDERED: NITROGLYCERIN SL 0.4 MG/TAB TAB SL PRN (09:57)
[2020-09-07] MEDS ORDERED: DOCUSATE SODIUM 100 MG CAP PO PRN (09:57)
[2020-09-07] MEDS ORDERED: GLUCAGON FOR INJ 1 MG VIAL SQ PRN (09:57)
[2020-09-07] MEDS ORDERED: ACETAMINOPHEN 325 MG TAB PO PRN (09:57)
[2020-09-07] MEDS ORDERED: SODIUM CHLORIDE 0.9% 1000ML 1,000 ML IV PRN (10:19)
[2020-09-07] MEDS ORDERED: HEPARIN SOD (PORCINE) 1000 UNIT/ML 10 ML VIAL IV ONE (10:19)
--- NOTE | 2020-09-07 14:21 | Cardiology Consultation ---
Date of Consultation September 07, 2020 Assessment & Plan (1) Atypical chest pain: (2) Elevated troponin: (3) Chronic heart failure with preserved ejection fraction (HFpEF): (4) PAF (paroxysmal atrial fibrillation): (5) Chronic right heart failure: (6) CAD (coronary artery disease): (7) Recurrent Clostridium difficile diarrhea: (8) ESRD (end stage renal disease) on dialysis: (9) S/P ablation of atrial flutter: (10) H/O carotid endarterectomy: (11) S/P aortic valve replacement: Atypical chest discomfort at rest. Minimal troponin elevation likely secondary to end-stage renal disease. We will continue to follow troponin trend and clinically for any further episodes of chest discomfort. Resting echocardiogram will also be obtained. Heparin drip has been initiated and will continue until troponin started to trend down. Patient states that he would not be overly eager to undergo any cardiac testing. History of Present Illness Reason for Consultation: chest pain Requesting Physician: Dr. Barnes Attending Physician: Chet Barnes MD History of Present Illness I saw Mr. Davey in consultation today, 09/07/20 for evaluation of chest pain. He states that yesterday afternoon he was sitting in his chair when he suddenly developed sub axilla discomfort on the left. He described as a sudden onset of pressure that persisted for approximately 1 hour. He denied any associated symptoms specifically denying any shortness of breath, radiation of the discomfort nausea, lightheadedness, dizziness, diaphoresis or syncope. Upon arrival to the emergency department his discomfort had subsided. His initial troponin was slightly elevated and he was admitted to the telemetry unit. He denies any further discomfort since admission. He also denies any previously similar episodes of chest discomfort. Relevant cardiac history as per most recent outpatient reevaluation: (1) paroxysmal atrial fibrillation -in sinus rhythm on most recent EKG as noted above (2) History of recurrent atrial flutter for which patient underwent tricuspid isthmus ablation in July 2016 (3)Status post bioprosthetic aortic valve replacement, 04/22/2012 with a 23 millimeter Kristie-Barraza pericardial valve with surgery having been performed for severe symptomatic aortic valve stenosis Nonobstructive CAD on preoperative cardiac catheterization (4)End-stage renal disease on hemodialysis (5)History of past life-threatening pulmonary embolism for which she is prescribed chronic Coumadin anticoagulation (6)Status post right carotid endarterectomy 2008, less than 50% bilateral carotid stenosis duplex 2017 Allergies Allergy/AdvReac Type Severity Reaction Status Date / Time aspirin Allergy Unknown . Verified 09/07/20 06:16 salicylates Allergy Unknown UNKNOWN Verified 09/07/20 06:16 Home Medications Medication Instructions Recorded Confirmed Type cholecalciferol (vitamin D3) 1,000 unit PO HS 06/14/18 09/07/20 History [Vitamin D3] docusate sodium 100 mg PO BID PRN 03/18/19 09/07/20 History omega 4-vfw-wgi-fish oil [Fish Oil] 1 cap PO DAILY 05/21/19 09/07/20 History lidocaine-prilocaine 1 applic TOPICAL 3XWK 11/13/19 09/07/20 History sevelamer carbonate [Renvela] 1,600 mg PO DAILYBD 11/13/19 09/07/20 History sevelamer carbonate [Renvela] 800 mg PO BID 11/13/19 09/07/20 History warfarin 5 mg PO DAILY 11/13/19 09/07/20 History Nephro-Neeraj 1 tab PO DAILY 09/07/20 09/07/20 History buprenorphine 1 patch TOPICAL WK 09/07/20 09/07/20 History diphenoxylate-atropine 1 - 2 tab PO UD PRN MDD 8 tabs 09/07/20 09/07/20 History fluticasone propionate 1 spray INTRANASAL DAILY 09/07/20 09/07/20 History menthol [Ice Blue Gel] 1 applic TOPICAL UD PRN 09/07/20 09/07/20 History ondansetron HCl 4 mg PO Q6 PRN 09/07/20 09/07/20 History vancomycin 125 mg PO DAILY 09/07/20 09/07/20 History atorvastatin 40 mg PO QAM #30 tab 09/10/20 Rx clopidogrel 75 mg PO DAILY #30 tab 09/10/20 Rx metoprolol succinate 25 mg PO QAM #30 tab 09/10/20 Rx nitroglycerin 0.4 mg SUBLINGUAL ONCE PRN #25 tab 09/10/20 Rx Patient History Medical History (Updated 09/12/20 @ 09:21 by Ted Conti MD) 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 Aortic valve insufficiency Atrial flutter CAD (coronary artery disease) s/p NSTEMI 09/07/20 CHF (congestive heart failure) mixed systolic + diastolic; underlying ischemic heart disease echo 09/07/20 LVEF 35-40% 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 Do not resuscitate status DVT (deep venous thrombosis) " 01/13/09 left leg " Dyslipidemia ESRD (end stage renal disease) on dialysis GERD (gastroesophageal reflux disease) Gram-positive bacteremia HTN (hypertension) Hx of amaurosis fugax "01/27/09, OD " PMR (polymyalgia rheumatica) 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 Pulmonary embolus Type 2 diabetes mellitus Surgical History (Updated 09/12/20 @ 09:21 by Ted Conti MD) H/O carotid endarterectomy "2008" H/O removal of testicle H/O superior vena cava filter placement History of hydrocelectomy History of total hip replacement S/P ablation of atrial flutter S/P aortic valve replacement "bio prosthetic" S/P cardiac cath "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" Family History Mother Hypertension Brother Stroke Social History Smoking Status: Never smoker Second Hand Exposure: No; Hx Alcohol Use: No Hx Substance Use: No Preferred Language: Swazi Communication Ability: Effective Visual Impairment: Partially Limited Staff Respiratory Therapist Required: No Beliefs That Will Affect Care: None marital status: Current Living Situation: Spouse Current Living Situation Comment: lives with Vannesa and six dogs in three carmel home. How many Children do You have: 4 Feels Safe at Home: Yes Assistive Devices: Walker Review of Systems Review of Systems: All systems reviewed & are unremarkable except as noted in HPI & below Physical Exam Physical Exam: General: Awake, alert and oriented x 3. No acute distress. HEENT: Normocephalic, atraumatic. Pupils equal, round and reactive to light and accommodation. Extraocular muscles are intact. Anicteric sclera. Moist mucous membranes. Neck: No JVD. No bruit. Cardiovascular: Regular. Positive S-4. Normal S-1 and S-2. No S-3. 3/6 mid to late systolic ejection murmur, greatest at the right sternal border, second intercostal space with radiation to the bilateral carotids. No rubs. Pulmonary: Clear to auscultation bilaterally. No rales, rhonchi, or wheezing. Abdomen: Bowel sounds x 4, soft. No rebound, guarding or tenderness. No o rganomegaly. Extremities: No clubbing, cyanosis or edema. +2 pedal pulses bilaterally. Skin: Warm and dry. Results & Data ([facility]) Vital Signs (Past 12 Hours) Vital Signs Temp Pulse Pulse Pulse Resp BP BP 09/07/20 14:00 86 94/59 L 09/07/20 13:40 109 H 107/74 09/07/20 13:20 94 H 113/68 09/07/20 13:00 96 H 102/68 09/07/20 12:40 92 H 112/66 09/07/20 12:20 95 H 116/75 09/07/20 12:00 95 H 121/73 09/07/20 11:40 109 H 111/75 09/07/20 11:18 36.4 C L 94 H 94 H 127/69 09/07/20 09:34 93 H 18 110/72 09/07/20 09:00 91 H 22 111/63 09/07/20 07:10 106 H 22 104/69 09/07/20 06:30 105 H 18 110/65 09/07/20 06:00 105 H 15 108/73 09/07/20 05:37 81 14 123/71 09/07/20 05:32 36.4 C L 85 22 123/71 Pulse Ox 09/07/20 14:00 09/07/20 13:40 09/07/20 13:20 09/07/20 13:00 09/07/20 12:40 09/07/20 12:20 09/07/20 12:00 09/07/20 11:40 09/07/20 11:18 09/07/20 09:34 94 09/07/20 09:00 95 09/07/20 07:10 96 09/07/20 06:30 95 09/07/20 06:00 95 09/07/20 05:37 98 09/07/20 05:32 98 Laboratory Results Laboratory Results - last 24 hr 09/07/20 09/07/20 09/07/20 05:38 05:38 05:38 WBC 9.25 RBC 2.96 L Hgb 11.1 L Hct 34.4 L MCV 116.2 H MCH 37.5 H MCHC 32.3 RDW Std Deviation 65.0 H RDW Coeff of Elvia 15.3 H Plt Count 151 MPV 12.2 H Immature Gran % (Auto) 0.5 Neut % (Auto) 54.9 Lymph % (Auto) 31.8 Bryan % (Auto) 10.2 Eos % (Auto) 2.3 Baso % (Auto) 0.3 Neut # (Auto) 5.08 Lymph # (Auto) 2.94 Bryan # (Auto) 0.94 H Eos # (Auto) 0.21 Baso # (Auto) 0.03 Immature Gran # (Auto) 0.05 H Macrocytosis Present PT Cancelled INR Cancelled Sodium 135 L Potassium 4.3 Chloride 96 L Carbon Dioxide 27 Anion Gap 12.0 H BUN 70 H Creatinine 7.25 H* Est Cr Clr Drug Dosing 8.3 Est GFR ( Amer) 7.2 Est GFR (Non-Af Amer) 6.2 BUN/Creatinine Ratio 9.8 L Glucose 167 H POC Glucose Calcium 8.6 Magnesium 2.9 H Total Bilirubin 0.4 AST 27 ALT 31 Alkaline Phosphatase 175 H Troponin I 0.065 H* NT-Pro-B Natriuret Pep 39978 H Total Protein 9.0 H Albumin 3.0 L Globulin 6.0 H Albumin/Globulin Ratio 0.5 L SARS-CoV-2 Ag (Rapid) 09/07/20 09/07/20 09/07/20 07:03 08:00 11:02 WBC RBC Hgb Hct MCV MCH MCHC RDW Std Deviation RDW Coeff of Elvia Plt Count MPV Immature Gran % (Auto) Neut % (Auto) Lymph % (Auto) Bryan % (Auto) Eos % (Auto) Baso % (Auto) Neut # (Auto) Lymph # (Auto) Bryan # (Auto) Eos # (Auto) Baso # (Auto) Immature Gran # (Auto) Macrocytosis PT 33.8 H INR 3.4 H Sodium Potassium Chloride Carbon Dioxide Anion Gap BUN Creatinine Est Cr Clr Drug Dosing Est GFR ( Amer) Est GFR (Non-Af Amer) BUN/Creatinine Ratio Glucose POC Glucose 200 H Calcium Magnesium Total Bilirubin AST ALT Alkaline Phosphatase Troponin I NT-Pro-B Natriuret Pep Total Protein Albumin Globulin Albumin/Globulin Ratio SARS-CoV-2 Ag (Rapid) Negative Medications Administered Current Inpatient Medications Acetaminophen (Acetaminophen 325 Mg Tab) 650 mg PO Q4H PRN PRN Reason: Pain or Fever Stop: 10/07/20 09:56 Dextrose (Dextrose 50% 50 Ml Syringe) 25 - 50 ml IV UD PRN; Protocol PRN Reason: Hypoglycemia Protocol Stop: 10/07/20 09:56 Docusate Sodium (Docusate Sodium 100 Mg Cap) 100 mg PO BID PRN PRN Reason: Constipation Stop: 10/07/20 09:56 Fish Oil ([place]-3 (Purified Fish Oil) 1 Gm Cap) 1 gm PO DAILY [facility] Stop: 10/08/20 08:59 Fluticasone Propionate (Fluticasone Propionate Na Spr 16 Gm Btl) 1 sprays NA DAILY [facility] Stop: 10/08/20 08:59 Glucagon (Glucagon For Inj 1 Mg Vial) 1 mg SQ UD PRN; Protocol PRN Reason: Hypoglycemia Protocol Stop: 10/07/20 09:56 Glucose (Glucose 10 Tabs/Tube) 4 - 8 tabs PO UD PRN; Protocol PRN Reason: Hypoglycemia Protocol Stop: 10/07/20 09:56 Glucose (Glucose 40% Gel 15 Gm Tube) 15 - 30 gm PO UD PRN; Protocol PRN Reason: Hypoglycemia Protocol Stop: 10/07/20 09:56 Sodium Chloride (Nss 1000ml) 1,000 mls @ 0 mls/hr IV .Q0M PRN PRN Reason: For Hemodialysis Use ONLY Stop: 09/07/20 16:18 Insulin Aspart (Insulin Aspart 100 Units/Ml 3 Ml Pen) 0 units SC ACHS [facility] Stop: 10/07/20 11:29 Insulin Glargine (Insulin Glargine Solostar 100 Units/Ml 3 Ml Pen) 0 - 8 units SC BID [facility] Stop: 10/07/20 11:29 Metoprolol Tartrate (Metoprolol Tartrate 50 Mg Tab) 50 mg PO SuMoWeFr@0900 [facility] Stop: 10/08/20 08:59 Miscellaneous (Carbohydrates For Hypoglycemia ) 15 - 30 gm PO UD PRN PRN Reason: Hypoglycemia Protocol Stop: 10/07/20 09:56 Miscellaneous (Buprenorphine 7.5 Mcg/Hour Patch: Order Awaiting Action) 1 ea N/A QS [facility] Stop: 10/12/20 00:00 Nitroglycerin (Nitroglycerin Sl 0.4 Mg/Tab Tab) 0.4 mg SL UD PRN PRN Reason: Chest Pain Stop: 10/07/20 09:56 Ondansetron HCl (Ondansetron Inj 2 Mg/Ml 2 Ml Vial) 4 mg IV Q6H PRN PRN Reason: Nausea Stop: 10/07/20 09:56 Polyethylene Glycol (Polyethylene (Miralax) 17 Gm Pack) 17 gm PO DAILY PRN PRN Reason: Constipation Stop: 10/07/20 09:56 Raspberry (Raspberry Syrup 5 Ml Udp) 5 ml PO DAILY [facility] Stop: 09/22/20 08:59 Sevelamer HCl (Sevelamer Hcl 800 Mg Tablet) 800 mg PO BID@0800,1200 [facility] Stop: 10/07/20 11:59 Sevelamer HCl (Sevelamer Hcl 800 Mg Tablet) 1,600 mg PO DAILYBD [facility] Stop: 10/07/20 15:29 Vancomycin HCl (Vancomycin Hcl 125 Mg/2.5ml Soln) 125 mg PO DAILY [facility]; Protocol Stop: 10/08/20 08:59 Vitamin B Complex/Folic Acid (Nephrocaps) 1 cap PO DAILY [facility] Stop: 10/08/20 08:59 Vitamin D (Cholecalciferol 1,000 Units 25 Mcg Tab) 1,000 units PO HS [facility] Stop: 10/07/20 20:59
[2020-09-07] MEDS: HEPARIN SOD (PORCINE) 1000 UNIT/ML 10 ML VIAL IV SCH (14:28)
--- NOTE | 2020-09-07 14:30 | Nephrology Consultation ---
Date of Consultation September 07, 2020 Assessment & Plan (1) ESRD (end stage renal disease) on dialysis: For routine dialysis today on 2K bath with mini heparin. Tolerated 2 L fluid removal and treatment was uneventful specifically with no exacerbations of chest or shoulder pain. Next dialysis on September 09 or as clinical needs dictate -continue renal diet and renvela and renal vitamin Present on Admission?: Yes (2) Anemia of chronic disease: hemoglobin above ADILENE criteria; please monitor every 48 hours while in- house Present on Admission?: Yes (3) Atypical chest pain: Per cardiology and primary service Present on Admission?: Yes (4) Elevated troponin: Note the troponin is up to 29 this evening; per cardiology and primary service Present on Admission?: Yes History of Present Illness Reason for Consultation: ESRD on dialysis Requesting Physician: Dr. Barnes Attending Physician: Chet Barnes MD History of Present Illness 85-year-old male on Sunday hemodialysis under observation currently to rule out ACS. He dialyzes via AV fistula under my care at [facility]. 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 He got up this morning and was sitting on the commode not having a bowel movement when he had sudden overwhelming generalized weakness was unable to move or get up from the toilet. Denied nausea vomiting shortness of breath or to me chest discomfort. He did endorse some right shoulder pain at the time. note that in interview he specifically points to R shoulder and repeats this when I ask him to clarify. (He reported sided pain to admitting team and described it as intermittent and worsened with leaning forward and relieved by nothing). Weakness recurred and ambulance was called. no diarrhea. Cardiology evaluated the patient later in the day favors diagnosis of atypical chest pain Allergies Allergy/AdvReac Type Severity Reaction Status Date / Time aspirin Allergy Unknown . Verified 09/07/20 06:16 salicylates Allergy Unknown UNKNOWN Verified 09/07/20 06:16 Home Medications Medication Instructions Recorded Confirmed Type cholecalciferol (vitamin D3) 1,000 unit PO HS 06/14/18 09/07/20 History [Vitamin D3] docusate sodium 100 mg PO BID PRN 03/18/19 09/07/20 History omega 0-jlg-wam-fish oil [Fish Oil] 1 cap PO DAILY 05/21/19 09/07/20 History lidocaine-prilocaine 1 applic TOPICAL 3XWK 11/13/19 09/07/20 History sevelamer carbonate [Renvela] 1,600 mg PO DAILYBD 11/13/19 09/07/20 History sevelamer carbonate [Renvela] 800 mg PO BID 11/13/19 09/07/20 History warfarin 5 mg PO DAILY 11/13/19 09/07/20 History B complex-vitamin C-folic acid 1 tab PO DAILY 09/07/20 09/07/20 History [Nephro-Neeraj] buprenorphine 1 patch TOPICAL WK 09/07/20 09/07/20 History diphenoxylate-atropine 1 - 2 tab PO UD PRN MDD 8 tabs 09/07/20 09/07/20 History fluticasone propionate [Flonase] 1 spray INTRANASAL DAILY 09/07/20 09/07/20 History menthol [Ice Blue Gel] 1 applic TOPICAL UD PRN 09/07/20 09/07/20 History metoprolol tartrate 50 mg PO SUMOWEFR 09/07/20 09/07/20 History ondansetron HCl 4 mg PO Q6 PRN 09/07/20 09/07/20 History vancomycin 125 mg PO DAILY 09/07/20 09/07/20 History Patient History Medical History Anemia 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 Aortic valve insufficiency Atrial flutter CAD (coronary artery disease) DVT (deep venous thrombosis) " 01/13/09 left leg " Dyslipidemia ESRD (end stage renal disease) on dialysis GERD (gastroesophageal reflux disease) Gram-positive bacteremia HTN (hypertension) Hx of amaurosis fugax "01/27/09, OD " PMR (polymyalgia rheumatica) 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 Pulmonary embolus Type 2 diabetes mellitus Surgical History H/O carotid endarterectomy "2008" H/O removal of testicle H/O superior vena cava filter placement History of hydrocelectomy History of total hip replacement S/P ablation of atrial flutter S/P aortic valve replacement "bio prosthetic" S/P cardiac cath "2012 - non obstructive CAD" Family History Mother Hypertension Brother Stroke Social History Smoking Status: Never smoker Second Hand Exposure: No; Hx Alcohol Use: No Hx Substance Use: No Preferred Language: Cambodian Communication Ability: Effective Visual Impairment: Partially Limited Faculty Support Coordinator Required: No Beliefs That Will Affect Care: None marital status: Current Living Situation: Spouse Current Living Situation Comment: lives with Vannesa and six dogs in three story home. How many Children do You have: 4 Feels Safe at Home: Yes Assistive Devices: Walker Review of Systems Review of Systems: All systems reviewed & are unremarkable except as noted in HPI & below Cardiovascular: Additional Comments: No further chest or shoulder discomfort since this morning Physical Exam Constitutional: well developed and well nourished; no acute distress Eyes: EOM intact bilaterally ENMT: Ears: no external ear abnormality Nose: no external nose abnormality Mouth: + dry oral mucous membranes Neck: no nuchal rigidity Respiratory: normal respiratory effort Auscultation: lungs clear to auscultation bilaterally and + diminished lung sounds On room air Cardiovascular: Rate/Rhythm: regular rate and regular rhythm Extremities: + edema (Indurated bilateral trace to 1+ lower extremity) and + AV fistula (Positive thrill and bruit) Gastrointestinal (Abdomen): Inspection/Auscultation: normal bowel sounds Percussion/Palpation: abdomen soft; abdomen nontender Musculoskeletal: Extremities: strength 5/5 throughout Skin: no rashes, warm and dry Neurologic: uribe, fluent speech, no tremor Psychiatric: A+Ox3, euthymic affect Results & Data ([facility]) Vital Signs (Past 12 Hours) Vital Signs Temp Pulse Pulse Pulse Resp BP BP 09/07/20 14:20 97 H 117/63 09/07/20 14:00 86 94/59 L 09/07/20 13:40 109 H 107/74 09/07/20 13:20 94 H 113/68 09/07/20 13:00 96 H 102/68 09/07/20 12:40 92 H 112/66 09/07/20 12:20 95 H 116/75 09/07/20 12:00 95 H 121/73 09/07/20 11:40 109 H 111/75 09/07/20 11:18 36.4 C L 94 H 94 H 127/69 09/07/20 09:34 93 H 18 110/72 09/07/20 09:00 91 H 22 111/63 09/07/20 07:10 106 H 22 104/69 09/07/20 06:30 105 H 18 110/65 09/07/20 06:00 105 H 15 108/73 09/07/20 05:37 81 14 123/71 09/07/20 05:32 36.4 C L 85 22 123/71 Pulse Ox 09/07/20 14:20 09/07/20 14:00 09/07/20 13:40 09/07/20 13:20 09/07/20 13:00 09/07/20 12:40 09/07/20 12:20 09/07/20 12:00 09/07/20 11:40 09/07/20 11:18 09/07/20 09:34 94 09/07/20 09:00 95 09/07/20 07:10 96 09/07/20 06:30 95 09/07/20 06:00 95 09/07/20 05:37 98 09/07/20 05:32 98 Laboratory Results 09/07/20 05:38 09/07/20 05:38 Diagnostic Findings Left shoulder x-ray 1. No fracture or dislocation within the left shoulder. 2. Mild osteoarthritis. cHest x-ray without acute cardiopulmonary findings
--- NOTE | 2020-09-07 14:58 | Electrocardiogram Report ---
Test Reason : Blood Pressure : / mmHG Vent. Rate : 081 BPM Atrial Rate : 081 BPM P-R Int : 226 ms QRS Dur : 084 ms QT Int : 374 ms P-R-T Axes : 000 -49 057 degrees QTc Int : 434 ms Sinus rhythm with 1st degree A-V block Left axis deviation Abnormal ECG When compared with ECG of 13-NOV-2019 13:36, Non-specific change in ST segment in Anterior leads Nonspecific T wave abnormality has replaced inverted T waves in Anterior leads Confirmed by Tyree Almonte ([id number]) on 09/07/2020 2:57:36 PM Referred By: REFERRED SELF Confirmed By:Tyree Almonte
--- NOTE | 2020-09-07 15:15 | Electrocardiogram Report ---
Test Reason : Blood Pressure : / mmHG Vent. Rate : 095 BPM Atrial Rate : 095 BPM P-R Int : 262 ms QRS Dur : 084 ms QT Int : 356 ms P-R-T Axes : 109 -57 058 degrees QTc Int : 447 ms Sinus rhythm with 1st degree A-V block Left axis deviation Nonspecific ST abnormality Abnormal ECG When compared with ECG of 07-SEP-2020 05:35, (unconfirmed) No significant change was found Confirmed by Tyree Almonte ([id number]) on 09/07/2020 3:14:53 PM Referred By: REFERRED SELF Confirmed By:Tyree Almonte
[2020-09-07] MEDS: SEVELAMER HCL 800 MG TABLET PO SCH ×2 (15:50→16:16)
[2020-09-07] MEDS: INSULIN ASPART 100 UNITS/ML 3 ML PEN SC SCH ×3 (15:50→21:03)
[2020-09-07] MEDS: INSULIN GLARGINE SOLOSTAR 100 UNITS/ML 3 ML PEN SC SCH ×2 (16:29→21:02)
[2020-09-07] MEDS ORDERED: METOPROLOL TARTRATE 50 MG TAB PO STA (19:07)
--- NOTE | 2020-09-07 19:10 | Dialysis Progress Note ---
Date of Service September 07, 2020 Assessment & Plan (1) ESRD (end stage renal disease) on dialysis: For routine dialysis today on 2K bath with mini heparin. Tolerated 2 L fluid removal and treatment was uneventful specifically with no exacerbations of chest or shoulder pain. Next dialysis on September 09 or as clinical needs dictate -- likely as OP -continue renal diet and renvela and renal vitamin (2) Anemia of chronic disease: hemoglobin above ADILENE criteria; please monitor every 48 hours while in- house (3) Atypical chest pain: Per cardiology and primary service (4) Elevated troponin: Note the troponin is up to 29 this evening; per cardiology and primary service; CT angio chest ordered Admission and Anticipated Discharge Date Admission Date: September 07, 2020 Subjective Seen on dialysis midway through treatment at approximately 1:30 PM. No complaints of dyspnea, recurrent chest pain, shoulder pain. He tells me shoulder pain is on right side and repeats this when I ask for clarification. No nausea or vomiting. Markedly hungry. Tolerating 2 L fluid removal without incident Review of Systems Review of Systems: All systems reviewed & are unremarkable except as noted in HPI & below Physical Exam Constitutional: well developed and well nourished; no acute distress Eyes: EOM intact bilaterally ENMT: Ears: no external ear abnormality Nose: no external nose abnormality Mouth: + dry oral mucous membranes Neck: no nuchal rigidity Respiratory: normal respiratory effort Auscultation: lungs clear to auscultation bilaterally and + diminished lung sounds Cardiovascular: Rate/Rhythm: regular rate and regular rhythm Extremities: + edema (Indurated bilateral trace to 1+ lower extremity) and + AV fistula (Positive thrill and bruit) Gastrointestinal (Abdomen): Inspection/Auscultation: normal bowel sounds Percussion/Palpation: abdomen soft; abdomen nontender Musculoskeletal: Extremities: strength 5/5 throughout Skin: no rashes, warm and dry Psychiatric: A+Ox3, euthymic affect Results & Data ([facility]) Vital Signs (Past 12 Hours) Vital Signs Temp Pulse Pulse Pulse Resp BP BP 09/07/20 15:54 36.6 C 99 H 20 129/78 09/07/20 15:20 36.5 C 96 H 96 H 142/94 H 142/94 H 09/07/20 15:00 97 H 112/71 09/07/20 14:40 101 H 106/73 09/07/20 14:20 97 H 117/63 09/07/20 14:00 86 94/59 L 09/07/20 13:40 109 H 107/74 09/07/20 13:20 94 H 113/68 09/07/20 13:00 96 H 102/68 09/07/20 12:40 92 H 112/66 09/07/20 12:20 95 H 116/75 09/07/20 12:00 95 H 121/73 09/07/20 11:40 109 H 111/75 09/07/20 11:18 36.4 C L 94 H 94 H 127/69 09/07/20 09:34 93 H 18 110/72 09/07/20 09:00 91 H 22 111/63 09/07/20 07:10 106 H 22 104/69 Pulse Ox 09/07/20 15:54 93 09/07/20 15:20 09/07/20 15:00 09/07/20 14:40 09/07/20 14:20 09/07/20 14:00 09/07/20 13:40 09/07/20 13:20 09/07/20 13:00 09/07/20 12:40 09/07/20 12:20 09/07/20 12:00 09/07/20 11:40 09/07/20 11:18 09/07/20 09:34 94 09/07/20 09:00 95 09/07/20 07:10 96
[2020-09-07 20:18] LABS: INR 3.6 (0.9-1.1); Prothrombin Time 35.9 Seconds (9.0-12.0)
[2020-09-07] MEDS: CHOLECALCIFEROL 1,000 UNITS 25 MCG TAB PO SCH (20:30)
[2020-09-07 21:15] LABS: Hepatitis B Surface Ab Quant < 3.10 mIU/mL (>or=10mIU/mL Immune); Hepatitis B Surface Antibody Non-Immune
[2020-09-07 21:23] LABS: Hepatitis B Surf Ag Rflx Conf Neg (Neg)
[2020-09-08 07:43] LABS: Basophils # (auto) 0.02 K/uL (0-0.2); Basophils % (auto) 0.2 %; Hematocrit (blood only) 34.7 % (42-52); Immature Granulocytes # (auto) 0.04 K/uL (0.00-0.02); Immature Granulocytes % (auto) 0.4 %; Lymphocytes # (auto) 1.35 K/uL (1.2-3.4); Lymphocytes % (auto) 13.9 %; Mean Corpuscular Hgb Conc 31.7 g/dL (32-36); Mean Corpuscular Volume 116.8 fL (80-100); Mean Platelet Volume 12.4 fL (7.4-10.4); Monocytes # (auto) 1.12 K/uL (0.11-0.59); Monocytes % (auto) 11.6 %; Neutrophils # (auto) 7.16 K/uL (1.4-6.5); Neutrophils % (auto) 73.9 %; Platelet Count 143 K/uL (130-400); RDW Coefficient of Variation 15.4 % (11.5-14.5); RDW Standard Deviation 65.4 fL (36.4-46.3); Red Blood Count 2.97 M/uL (4.7-6.1); White Blood Count 9.69 K/uL (4.8-10.8)
[2020-09-08 08:05] LABS: INR 3.8 (0.9-1.1); Prothrombin Time 37.1 Seconds (9.0-12.0)
[2020-09-08 08:06] LABS: Giant Platelets 1+; Macrocytosis Present
[2020-09-08] MEDS: INSULIN ASPART 100 UNITS/ML 3 ML PEN SC SCH ×4 (08:24→20:33)
[2020-09-08] MEDS: OMEGA-3 (PURIFIED FISH OIL) 1 GM CAP PO SCH (08:26)
[2020-09-08] MEDS: RASPBERRY SYRUP 5 ML UDP PO SCH (08:26)
[2020-09-08] MEDS: SEVELAMER HCL 800 MG TABLET PO SCH ×3 (08:26→15:56)
[2020-09-08] MEDS: NEPHROCAPS PO SCH (08:27)
[2020-09-08] MEDS: INSULIN GLARGINE SOLOSTAR 100 UNITS/ML 3 ML PEN SC SCH ×2 (08:27→20:33)
[2020-09-08] MEDS: FLUTICASONE PROPIONATE NA SPR 16 GM BTL SCH (08:27)
[2020-09-08] MEDS: VANCOMYCIN HCL 125 MG/2.5ML SOLN PO SCH (08:30)
[2020-09-08 08:37] LABS: Albumin Globulin Ratio 0.5 (0.9-2); Albumin Level 2.9 gm/dl (3.4-5.0); Bilirubin,Total 0.6 mg/dl (0.2-1); Calcium 9.1 mg/dl (8.5-10.1); Creatinine Clr Calc Pharmacy 12.1 ml/min; Est GFR (African American) 11.8; Est GFR (Non-African American) 10.2; Globulin 5.8 gm/dl (2.5-4.0); Magnesium 2.5 mg/dl (1.8-2.4); Potassium 4.8 mmol/L (3.5-5.1); Total Protein 8.7 gm/dl (6.4-8.2)
[2020-09-08] MEDS ORDERED: METOPROLOL TARTRATE 50 MG TAB PO SCH (09:00)
--- NOTE | 2020-09-08 09:13 | Cardiology Progress Note ---
Date of Service September 08, 2020 Assessment & Plan (1) Atypical chest pain: (2) Elevated troponin: (3) Chronic heart failure with preserved ejection fraction (HFpEF): (4) PAF (paroxysmal atrial fibrillation): (5) Chronic right heart failure: (6) CAD (coronary artery disease): (7) Recurrent Clostridium difficile diarrhea: (8) ESRD (end stage renal disease) on dialysis: (9) S/P ablation of atrial flutter: (10) H/O carotid endarterectomy: (11) S/P aortic valve replacement: Has remained asymptomatic since admission. Troponin continues to elevate, will follow. INR elevated at 3.8 today, no heparin. Results of echocardiogram and troponin reviewed with the patient and counseled that he may be actively having an MT with resultant significant ischemic cardiomyopathy. Treatment options discussed of aggressive versus nonaggressive measures particularly discussing cardiac catheterization the benefits and risk. The patient states "I am 85 years old and if God wants to take me he will take me." Declines cardiac catheterization at this time. We will treat medically and change metoprolol to 12.5 mg p.o. daily. Continue to monitor on telemetry and trend troponin. I will also call his to discuss the findings. Admission and Anticipated Discharge Date Admission Date: September 07, 2020 Subjective Patient seen and examined, chart reviewed. Currently seated out of bed in chair and states he feels fine. Has not had any recurrences of chest/arm discomfort since presentation to the emergency room. Denies shortness of breath, palpitations, lightheadedness, dizziness or syncope. Telemetry reviewed: Normal sinus rhythm without arrhythmia Review of Systems Review of Systems: All systems reviewed & are unremarkable except as noted in HPI & below Physical Exam Physical Exam: General: Awake, alert and oriented x 3. No acute distress. HEENT: Normocephalic, atraumatic. Pupils equal, round and reactive to light and accommodation. Extraocular muscles are intact. Anicteric sclera. Moist mucous membranes. Neck: No JVD. No bruit. Cardiovascular: Regular. Positive S-4. Normal S-1 and S-2. No S-3. 3/6 mid to late systolic ejection murmur, greatest at the right sternal border, second intercostal space with radiation to the bilateral carotids. No rubs. Pulmonary: Clear to auscultation bilaterally. No rales, rhonchi, or wheezing. Abdomen: Bowel sounds x 4, soft. No rebound, guarding or tenderness. No organomegaly. Extremities: No clubbing, cyanosis or edema. +2 pedal pulses bilaterally. Skin: Warm and dry. Results & Data ([facility]) Vital Signs (Past 12 Hours) Vital Signs Temp Pulse Resp BP Pulse Ox 09/08/20 08:22 36.9 C 74 18 99/60 L 96 09/08/20 03:26 36.8 C 75 17 94/59 L 94 09/07/20 23:38 36.7 C 90 18 104/67 93
[2020-09-08 10:20] LABS: Estimated Average Glucose 154 mg/dl
--- NOTE | 2020-09-08 10:30 | Palliative Care Consultation ---
Date of Consultation September 08, 2020 Assessment & Plan (1) Palliative care encounter: I talked with Luis about his concerns and goals of care. He is most worried about his if he were to . He has said that he would not want surgery but has been tolerating dialysis for five years. He understands that his prognosis is not good. He is emphatic about not wanting to be in a penitentiary and wanting to be at home with his family. HIs greatest enjoyment is being with is family and watching the animals in the backyard. I did speak with his Vannesa, by phone, who deferred discussion to her son in law, Satish. Satish has been very involved in Luis's care. I discussed what Luis had said earlier and he says this is consistent with what he has said in the past. Given his goal to be at home, I recommended that Full resuscitation would not be in his best interest and would not allow him to be at home for his dying time. Current plan would be to monitor on dialysis while he is in the hospital. As long as he tolerates dialysis, he could continue this at home with home nursing support. If he were unable to tolerated dialysis, plan would be for comfort care at home. I suggested that Satish discuss this with the family, to make sure that everyone is in agreement. He recommends that further goals discussions be with Luis's daughter, Rocio at [phone]. We will continue to follow to assist with goals of care. Thank you for allowing us to participate in this gentleman's care. (2) ESRD (end stage renal disease) on dialysis: (3) CAD (coronary artery disease): History of Present Illness Reason for Consultation: Goals of care discussion Requesting Physician: Dr. Barnes Attending Physician: Chet Barnes MD History of Present Illness 85 yo gentleman with h/o CAD and ESRD who has been on hemodialysis. He developed chest pain early yesterday morning and has been admitted for further evaluation. He has had upward trend of troponin I and elevated BNP in the setting of ESRD. He Has had significant change in his echo from October 2019 to present though he has had chronic diastolic heart failure, his EF has decreased from 55-60% to 35-40% and pulmonary hypertension increased from 48mm Hg to 57 on current echo. He does also have valvular heart disease. He has comorbid D diff, diabetes, afib and a h/o PE. Allergies Allergy/AdvReac Type Severity Reaction Status Date / Time aspirin Allergy Unknown . Verified 09/07/20 06:16 salicylates Allergy Unknown UNKNOWN Verified 09/07/20 06:16 Home Medications Medication Instructions Recorded Confirmed Type cholecalciferol (vitamin D3) 1,000 unit PO HS 06/14/18 09/07/20 History [Vitamin D3] docusate sodium 100 mg PO BID PRN 03/18/19 09/07/20 History omega 8-een-atu-fish oil [Fish Oil] 1 cap PO DAILY 05/21/19 09/07/20 History lidocaine-prilocaine 1 applic TOPICAL 3XWK 11/13/19 09/07/20 History sevelamer carbonate [Renvela] 1,600 mg PO DAILYBD 11/13/19 09/07/20 History sevelamer carbonate [Renvela] 800 mg PO BID 11/13/19 09/07/20 History warfarin 5 mg PO DAILY 11/13/19 09/07/20 History B complex-vitamin C-folic acid 1 tab PO DAILY 09/07/20 09/07/20 History [Nephro-Neeraj] buprenorphine 1 patch TOPICAL WK 09/07/20 09/07/20 History diphenoxylate-atropine 1 - 2 tab PO UD PRN MDD 8 tabs 09/07/20 09/07/20 History fluticasone propionate [Flonase] 1 spray INTRANASAL DAILY 09/07/20 09/07/20 History menthol [Ice Blue Gel] 1 applic TOPICAL UD PRN 09/07/20 09/07/20 History metoprolol tartrate 50 mg PO SUMOWEFR 09/07/20 09/07/20 History ondansetron HCl 4 mg PO Q6 PRN 09/07/20 09/07/20 History vancomycin 125 mg PO DAILY 09/07/20 09/07/20 History Patient History Medical History Anemia 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 Aortic valve insufficiency Atrial flutter CAD (coronary artery disease) DVT (deep venous thrombosis) " 01/13/09 left leg " Dyslipidemia ESRD (end stage renal disease) on dialysis GERD (gastroesophageal reflux disease) Gram-positive bacteremia HTN (hypertension) Hx of amaurosis fugax "01/27/09, OD " PMR (polymyalgia rheumatica) 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 Pulmonary embolus Type 2 diabetes mellitus Surgical History H/O carotid endarterectomy "2008" H/O removal of testicle H/O superior vena cava filter placement History of hydrocelectomy History of total hip replacement S/P ablation of atrial flutter S/P aortic valve replacement "bio prosthetic" S/P cardiac cath "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" Family History Mother Hypertension Brother Stroke Social History Smoking Status: Never smoker Second Hand Exposure: No; Hx Alcohol Use: No Hx Substance Use: No Preferred Language: Serbian Communication Ability: Effective Visual Impairment: Partially Limited Nurse Orthopaedic Required: No Beliefs That Will Affect Care: None marital status: Current Living Situation: Spouse Current Living Situation Comment: lives with Vannesa and six dogs in three flowood home. How many Children do You have: 4 Feels Safe at Home: Yes Assistive Devices: Walker Review of Systems Review of Systems: [place] Symptom Assessment Scale Pain 0/3 Dyspnea 1/3 with exertion Nausea 0/3 Anorexia 0/3 Fatigue 2/3 Depression 0/3 Anxiety 0/3 Palliative Performance Score 50% Physical Exam Constitutional: no acute distress Neck: normal visual inspection Respiratory: normal respiratory effort; no labored breathing Cardiovascular: Extremities: + edema Gastrointestinal (Abdomen): Inspection/Auscultation: abdomen not distended Musculoskeletal: Extremities: strength 5/5 throughout Skin: no rashes, warm and dry Psychiatric: A+Ox3, euthymic affect Results & Data ([facility]) Vital Signs (Past 12 Hours) Vital Signs Temp Pulse Resp BP Pulse Ox 09/08/20 08:22 98.4 F 74 18 99/60 L 96 09/08/20 03:26 98.2 F 75 17 94/59 L 94 09/07/20 23:38 98.1 F 90 18 104/67 93 PG Care Time/CCT Total # of Minutes Spent Total Time Spent with Patient: Total time spent is greater than 50% in coordination of care (as documented) at patient's floor/unit and/or counseling patient: Total time spent70 minutes with more than 50% of time spent on goals of care and code status. Coding Level of Care Code 13916 Inpt Consult Level 4 Diagnoses Palliative care encounter Z51.5 ESRD (end stage renal disease) on dialysis N18.6; Z99.2 CAD (coronary artery disease) I25.10
--- NOTE | 2020-09-08 13:18 | Communication Note ---
Date of Service: September 08, 2020 Multiple attempts made to contact via phone, line is busy. Will retry later.
--- NOTE | 2020-09-08 13:23 | Communication Note ---
Date of Service: September 08, 2020 Spoke with the patient's 1 for me that I was supposed to call her his daughter Rocio. I was given the phone number [phone]. No answer. Voice message left.
--- NOTE | 2020-09-08 13:29 | Communication Note ---
Date of Service: September 08, 2020 I got through to the phone number provided and was told that it was a wrong number. I called his back and was given the number of [phone] and I spoke to his daughter Rocio and updated her on his status and his desires not to undergo cardiac catheterization. I also explained that palliative care team would be contacting the family to discuss along with the patient his goals of care. She thanked me for the call.
--- NOTE | 2020-09-08 13:44 | Electrocardiogram Report ---
Test Reason : Blood Pressure : / mmHG Vent. Rate : 116 BPM Atrial Rate : 116 BPM P-R Int : 256 ms QRS Dur : 082 ms QT Int : 318 ms P-R-T Axes : 000 -61 072 degrees QTc Int : 442 ms Sinus tachycardia with 1st degree A-V block Left axis deviation Septal infarct , age undetermined Abnormal ECG When compared with ECG of 07-SEP-2020 10:02, Septal infarct is now Present T wave inversion now evident in Anterior leads Confirmed by Tyree Almonte ([id number]) on 09/08/2020 1:43:57 PM Referred By: REFERRED SELF Confirmed By:Tyree Almonte
--- NOTE | 2020-09-08 14:07 | Electrocardiogram Report ---
Test Reason : Blood Pressure : / mmHG Vent. Rate : 080 BPM Atrial Rate : 080 BPM P-R Int : 218 ms QRS Dur : 080 ms QT Int : 362 ms P-R-T Axes : 000 -60 082 degrees QTc Int : 417 ms Sinus rhythm with 1st degree A-V block with Premature supraventricular complexes Left axis deviation Cannot rule out Anterior infarct (cited on or before 07-SEP-2020) Abnormal ECG When compared with ECG of 07-SEP-2020 18:57, (unconfirmed) Premature supraventricular complexes are now Present Questionable change in initial forces of Septal leads Confirmed by Tyree Almonte ([id number]) on 09/08/2020 2:07:45 PM Referred By: REFERRED SELF Confirmed By:Tyree Almonte
--- NOTE | 2020-09-08 16:44 | Hospitalist Progress Note ---
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 NSTEMI -ECHO: LV systolic function reduced LAD distribution wall motion abnormality and wall thickening. EF 35 to 40%. Akinesis and wall thinning of the anterolateral, anterior, anteroseptal and apical rai consistent with scar of the LAD distribution. Grade 3 diastolic dysfunction. Moderate to severe tricuspid regurgitation. Pulmonary hypertension with PA systolic pressure 57 mmHg. -Troponin:0.065>28.7>86.6 -EKG: Findings consistent with septal infarct, T wave inversion in anterior leads. -H/O Intolerance to Aspirin -Continue metoprolol 25 mg daily -Appreciate cardiology input -Patient not interested in cardiac catheterization per Cards -Continue conservative management -Trend troponin -Currently chest pain free -Palliative Care consulted to address goals of Care (3) CAD (coronary artery disease): H/O Nonobstructive CAD H/O aspirin intolerance Continue metoprolol (4) Chronic heart failure with preserved ejection fraction (HFpEF): Euvolemic currently On HD continue metoprolol Monitor Volume Status (5) PAF (paroxysmal atrial fibrillation): Continue Metoprolol For therapeutic INR Coumadin on hold Monitor INR:3.8 (6) Type 2 diabetes mellitus: Hb A1C 7.0 Not on oral hypoglycemics Continue insulin therapy while hospitalized (7) ESRD (end stage renal disease) on dialysis: HD / Continue dialysis as per Nephrology Appreciate Nephrology Input continue Renvela (8) 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 Craig and Cardiology upon discharge Admission and Anticipated Discharge Date Admission Date: September 08, 2020 Subjective Patient is seen and examined at bedside. Chest pain resolved Eager to get discharged Denies dyspnea, dizziness, nausea, abdominal pain Discussed with cardiology and patient's family over the phone Offers no new complaints Review of Systems Review of Systems: All systems reviewed & are unremarkable except as noted in HPI & below Physical Exam Physical Exam: Physical Exam: Vitals signs as noted above General Appearance:Moderately built and nourished, no apparent distress Head: normocephalic, Atraumatic Eyes: normal inspection, EOMI Neck: supple, Trachea midline Respiratory/Chest: Normal breath sounds, CTA Cardiovascular: S1, S2, +Systolic murmur Abdomen/GI:Soft, Non tender, Bowel sounds present Extremities/Musculoskelatal:normal inspection, B/L LE edema, venous stasis changes Neurologic/Psych:AAOX3, grossly no focal neurological deficits Skin: normal color, warm Results & Data Results & Data ([facility]) Vital Signs (Past 12 Hours) Vital Signs Temp Pulse Pulse Resp BP Pulse Ox 09/08/20 15:23 37.0 C 61 19 94/61 L 95 09/08/20 15:11 36.9 C 99 H 18 117/73 95 09/08/20 11:55 36.6 C 73 18 115/69 96 09/08/20 08:22 36.9 C 74 18 99/60 L 96 Laboratory Results Short CBC 09/08/20 Range/Units 07:08 WBC 9.69 (4.8-10.8) K/uL Hgb 11.0 L (14.0-18.0) g/dL Hct 34.7 L (42-52) % Plt Count 143 (130-400) K/uL BMP 09/08/20 07:08 Sodium 135 L Potassium 4.8 Chloride 97 L Carbon Dioxide 27 BUN 39 H Creatinine 4.82 H* D Glucose 156 H Calcium 9.1 Cardiac Enzymes 09/07/20 09/08/20 Range/Units 17:51 09:30 Troponin I 28.700 H* 86.600 H* (0-0.045) ng/ml Liver Function 09/08/20 Range/Units 07:08 Total Bilirubin 0.6 (0.2-1) mg/dl AST 222 H (15-37) U/L ALT 44 (12-78) U/L Alkaline Phosphatase 129 H (45-117) U/L Albumin 2.9 L (3.4-5.0) gm/dl
[2020-09-08] MEDS: CHOLECALCIFEROL 1,000 UNITS 25 MCG TAB PO SCH (20:32)
[2020-09-09 01:55] LABS: INR 3.1 (0.9-1.1); Prothrombin Time 30.8 Seconds (9.0-12.0)
[2020-09-09 02:36] LABS: Troponin I 64.2 ng/ml (0-0.045)
[2020-09-09 03:24] LABS: Calcium 8.4 mg/dl (8.5-10.1); Creatinine Clr Calc Pharmacy 9.8 ml/min; Est GFR (African American) 9.1; Est GFR (Non-African American) 7.9; Magnesium 2.7 mg/dl (1.8-2.4); Phosphorus 5.8 mg/dl (2.5-4.9); Potassium 4.7 mmol/L (3.5-5.1)
[2020-09-09] MEDS ORDERED: HEPARIN SOD (PORCINE) 1000 UNIT/ML 10 ML VIAL IV ONE (08:10)
[2020-09-09] MEDS ORDERED: SODIUM CHLORIDE 0.9% 1000ML 1,000 ML IV PRN (08:10)
[2020-09-09] MEDS: INSULIN ASPART 100 UNITS/ML 3 ML PEN SC SCH ×4 (08:53→21:44)
[2020-09-09] MEDS: FLUTICASONE PROPIONATE NA SPR 16 GM BTL SCH (08:55)
[2020-09-09] MEDS: RASPBERRY SYRUP 5 ML UDP PO SCH (08:55)
[2020-09-09] MEDS: INSULIN GLARGINE SOLOSTAR 100 UNITS/ML 3 ML PEN SC SCH ×2 (08:56→21:44)
[2020-09-09] MEDS: OMEGA-3 (PURIFIED FISH OIL) 1 GM CAP PO SCH (08:56)
[2020-09-09] MEDS: SEVELAMER HCL 800 MG TABLET PO SCH ×3 (08:56→15:04)
[2020-09-09] MEDS: NEPHROCAPS PO SCH (08:56)
[2020-09-09] MEDS: VANCOMYCIN HCL 125 MG/2.5ML SOLN PO SCH (08:58)
[2020-09-09] MEDS: METOPROLOL SUCC 25MG EXT REL TAB PO SCH (08:58)
--- NOTE | 2020-09-09 10:55 | Cardiology Progress Note ---
Date of Service September 09, 2020 Assessment & Plan (1) Atypical chest pain: (2) Elevated troponin: (3) Chronic heart failure with preserved ejection fraction (HFpEF): (4) PAF (paroxysmal atrial fibrillation): (5) Chronic right heart failure: (6) CAD (coronary artery disease): (7) Recurrent Clostridium difficile diarrhea: (8) ESRD (end stage renal disease) on dialysis: (9) S/P ablation of atrial flutter: (10) H/O carotid endarterectomy: (11) S/P aortic valve replacement: Has remained asymptomatic since admission. Troponin has peaked and now trending down INR elevated at 3.1 today, no heparin and continue to hold warfarin for cath. Results of echocardiogram and troponin reviewed with the patient and counseled that he may be actively having an IL with resultant significant ischemic cardiomyopathy. Treatment options discussed of aggressive versus nonaggressive measures pa rticularly discussing cardiac catheterization the benefits and risk. The patient states "I am 85 years old and if God wants to take me he will take me." Declines cardiac catheterization at this time. We will treat medically and change metoprolol to 12.5 mg p.o. daily. Patient now states that he has changed his mind after discussing with family members and would like to proceed with cardiac catheterization. Already ate this morning and is scheduled for dialysis. We will tentatively plan on cath on 09/10 and allow INR to further drift down. Patient was once again counseled on likely low yield results from cardiac catheterization and risks of the procedure but states he would like to proceed. N.p.o. after midnight. Appreciate input from our palliative care colleagues, I completely agree that the patient should be changed to at least DNR given end-stage disease. Admission and Anticipated Discharge Date Admission Date: September 08, 2020 Subjective Patient seen and examined, chart reviewed. Out of bed in chair states he feels great today. Denies any further chest pain, shortness of breath, palpitations, lightheadedness, dizziness or syncope. He states that after discussing further with family members he would like to proceed with cardiac catheterization. I have discussed the findings with the patient's and daughter as per phone encounters on the . Telemetry reviewed: Atrial fibrillation rate controlled Review of Systems Review of Systems: All systems reviewed & are unremarkable except as noted in HPI & below Physical Exam Physical Exam: General: Awake, alert and oriented x 3. No acute distress. HEENT: Normocephalic, atraumatic. Pupils equal, round and reactive to light and accommodation. Extraocular muscles are intact. Anicteric sclera. Moist mucous membranes. Neck: No JVD. No bruit. Cardiovascular: Regular. Positive S-4. Normal S-1 and S-2. No S-3. 3/6 mid to late systolic ejection murmur, greatest at the right sternal border, second intercostal space with radiation to the bilateral carotids. No rubs. Pulmonary: Clear to auscultation bilaterally. No rales, rhonchi, or wheezing. Abdomen: Bowel sounds x 4, soft. No rebound, guarding or tenderness. No organomegaly. Extremities: No clubbing, cyanosis or edema. +2 pedal pulses bilaterally. Skin: Warm and dry. Results & Data ([facility]) Vital Signs (Past 12 Hours) Vital Signs Temp Pulse Pulse Pulse Resp BP Pulse Ox 09/09/20 10:35 36.6 C 103 H 19 132/81 92 09/09/20 07:00 36.6 C 99 H 84 14 126/72 98 09/09/20 04:42 36.3 C L 98 H 18 117/81 96 09/08/20 23:34 36.7 C 86 18 110/69 95 09/08/20 22:59 77
--- NOTE | 2020-09-09 12:24 | Palliative Care Progress Note ---
Date of Service September 09, 2020 Assessment & Plan (1) Palliative care encounter: I was able to follow up with Luis at his bedside. He was sitting in the bedside chair in no apparent distress. There have been conversation regarding how aggressive he would like to be with his care. He was able to talk with his , Rocio and his daughter on the phone last night and together they agreed that they would want to proceed with the cardiac catheterization, despite his previous hesitation of such. He does have the understanding that despite the diagnostic intervention, he may not be a candidate for further treatment intervention. [id number], I do think that this will help him make difficult decisions moving forward. He did confirm that he would like to continue hemodialysis at this time and when he leaves the hospital as well. I did bring up his code status and reiterated that CPR and a breathing tube would not be in his best interest and likely would be more futile than beneficial. He said "I dont want to talk about it right now". I expressed that these conversations can be difficult, but are necessary for us to know while he is able to express his wishes. For now, patient will remain a full code and NPO after midnight tonight for the cardiac catheterization and we will follow up thereafter. (2) ESRD (end stage renal disease) on dialysis: chronic hemodialysis patient (3) CAD (coronary artery disease): Admission and Anticipated Discharge Date Admission Date: September 08, 2020 Subjective Pt sitting in his bedside chair in no apparent distress. Please see A/P for further details Review of Systems Review of Systems: [place] Symptom Assessment Revised (ESAS-R) Tiredness: 1/3 Pain: 1/3 Lack of Appetite: 1/3 Shortness of Breath: 0/3 Anxiety: 0/3 PPS: 40% Physical Exam Constitutional: no acute distress Neck: normal visual inspection Respiratory: normal respiratory effort; no labored breathing Cardiovascular: Extremities: + edema Gastrointestinal (Abdomen): Inspection/Auscultation: abdomen not distended Musculoskeletal: Extremities: strength 5/5 throughout Skin: no rashes, warm and dry Psychiatric: A+Ox3, euthymic affect Results & Data ([facility]) Vital Signs (Past 12 Hours) Vital Signs Temp Pulse Pulse Pulse Resp BP Pulse Ox 09/09/20 10:35 36.6 C 103 H 19 132/81 92 09/09/20 07:00 36.6 C 99 H 84 14 126/72 98 09/09/20 04:42 36.3 C L 98 H 18 117/81 96 PG Care Time/CCT Total # of Minutes Spent Total Time Spent with Patient: Total time spent is greater than 50% in coordination of care (as documented) at patient's floor/unit and/or counseling patient: 35 Coding Level of Care Code 87101 Subseq Hosp Care Lvl 3 Diagnoses Palliative care encounter Z51.5 ESRD (end stage renal disease) on dialysis N18.6; Z99.2 CAD (coronary artery disease) I25.10 Time Spent (min) 35 Time Spent Midlevel Total time spent 35 minutes with >50% of that time assessing the patient, discussing goals of care and collaborating with IDT
--- NOTE | 2020-09-09 17:00 | Nephrology Progress Note ---
Date of Service September 09, 2020 Assessment & Plan (1) ESRD (end stage renal disease) on dialysis: For routine dialysis today on engine monitor on 2K bath with mini heparin. at last tx tolerated 2 L fluid removal and treatment was uneventful specifically with no exacerbations of chest or shoulder pain. for gentle dialysis today given active cardiac issues and softer bp on BB -continue renal diet and renvela and renal vitamin (2) Anemia of chronic disease: hemoglobin above ADILENE criteria; please monitor every 48 hours while in- house (3) Elevated troponin: Peak troponin 89 yesterday AM; downtrending now; per cardiology and primary service>>tentatisolo for cardiac cath in am Admission and Anticipated Discharge Date Admission Date: September 08, 2020 Subjective seen on rounds this am 1015; feelin gok; no recurrent L shoulder/ chest pain. no sob; edema baseline. he is anuric basically. after d/w his family pt has changed his mind and opted to go forward w/ cardiac cath, now planned tentatively for AM. Review of Systems Review of Systems: All systems reviewed & are unremarkable except as noted in HPI & below Physical Exam Constitutional: well developed and well nourished; no acute distress sitting up in chair on ra Eyes: EOM intact bilaterally ENMT: Ears: no external ear abnormality Nose: no external nose abnormality Mouth: + dry oral mucous membranes Neck: no nuchal rigidity Respiratory: normal respiratory effort Auscultation: + diminished lung sounds and + crackles (bibasilar) Cardiovascular: Rate/Rhythm: regular rate and regular rhythm Extremities: + edema (Indurated bilateral trace to 1+ lower extremity) and + AV fistula (Positive thrill and bruit) Gastrointestinal (Abdomen): Inspection/Auscultation: normal bowel sounds Percussion/Palpation: abdomen soft; abdomen nontender Musculoskeletal: Extremities: strength 5/5 throughout Skin: no rashes, warm and dry Neurologic: uribe, fluent speech, no tremor Psychiatric: A+Ox3, euthymic affect Results & Data ([facility]) Vital Signs (Past 12 Hours) Vital Signs Temp Pulse Pulse Pulse Resp BP Pulse Ox 09/09/20 15:50 102 H 09/09/20 15:25 36.5 C 109 H 20 133/84 95 09/09/20 10:35 36.6 C 103 H 19 132/81 92 09/09/20 07:00 36.6 C 99 H 84 14 126/72 98 Laboratory Results 09/08/20 07:08 09/09/20 01:24
[2020-09-09] MEDS: HEPARIN SOD (PORCINE) 1000 UNIT/ML 10 ML VIAL IV SCH (20:05)
[2020-09-09] MEDS: CHOLECALCIFEROL 1,000 UNITS 25 MCG TAB PO SCH (21:38)
--- NOTE | 2020-09-09 21:42 | Hospitalist Progress Note ---
Date of Service September 09, 2020 Assessment & Plan (1) Non-ST elevation (NSTEMI) myocardial infarction: Presented with chest pain. EKG showed non-specific changes. Troponin as high as 86. Echo showed mildly dilated LV, segmental wall motion abnormalities with overall LVEF 35-40%, grade 3 diastolic dysjunction, mildly dilated RV, bioprosthetic AVR with normal gradient, moderate TR, elevated PA sys pressure. Anticoagulated on warfarin. Allergic to aspirin. Continue metoprolol. Check lipid profile & start statin. Cardiology consulted. Patient was initially reluctant to consider cardiac cath, but after further discussion with his family would like to proceed. (2) CHF (congestive heart failure): Prior history of HFpEF. Now with reduced LVEF as noted above. = mixed systolic + diastolic left ventricular heart failure. Compensated. SAMPSON / ARB and spironolactone contraindicated in light of CKD. Fluid management with hemodialysis. (3) PAF (paroxysmal atrial fibrillation): Continue metoprolol for rate control. Continue anticoagulation with warfarin. (4) ESRD (end stage renal disease) on dialysis: Management per Nephrology. (5) Dyslipidemia: Check LDL-c. Start high-intensity statin. (6) Diabetes mellitus type 2 with complications: DM type 2, complicated by CAD and CKD. Hgb A1c = 7.0. FBS today = 134. Insulin coverage as needed. 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 Ongoing management per Nephrology. (8) C. difficile colitis: History of chronic / recurrent C diff. Continue vancomycin. (9) Palliative care encounter: Advanced age with significant co-morbidities, including CKD V on hemodialysis and CAD with acute IL. Palliative Medicine consulted. Patient would like to received aggressive medical care at this time, including cardiac cath. Code status discussed today by undersigned; he indicated that he would want resuscitation attempted in the event of a cardiopulmonary arrest. However, pt was seen later by Palliative Medicine. When they discussed code status further, he indicated that he would not want CPR or mechanical ventilation. Will change code status to DNR. (? 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 (10) Do not resuscitate status: As noted. (11) DVT prophylaxis: On warfarin for PAF. (12) Discharge planning issues: Anticipated discharge to home. Family Medicine follow-up with Dr. Gooden. Nephrology follow-up with Dr. Myrick. Cardiology follow-up with Admission and Anticipated Discharge Date Admission Date: September 08, 2020 Subjective Recheck for IL and other problems. Patient seen in their room around 1040. Feels better. No further chest pain. No SOB. After discussion with his family, he would like to reconsider cardiac cath. Telemetry data reviewed: SR / ST. Review of Systems: Constitutional- no fever. Cardiac- as noted above. Pulmonary- no cough or SOB. GI- no nausea, vomiting, diarrhea, melena, hematochezia. - no urinary symptoms. Otherwise, as noted above. Physical Exam Constitutional: no acute distress Eyes: + anicteric sclerae Respiratory: normal respiratory effort, lungs clear to auscultation Cardiovascular: Rate/Rhythm: regular rate and regular rhythm Vessels: + JVD Extremities: + edema (trace pretibial); no calf tenderness Gastrointestinal (Abdomen): normal bowel sounds, soft, nontender, no hepatosplenomegaly Musculoskeletal: Extremities: no cyanosis Skin: no rashes, warm and dry Psychiatric: Orientation: alert and oriented x 3 Results & Data Results & Data ([facility]) Vital Signs (Past 12 Hours) Vital Signs Temp Pulse Pulse Pulse Resp BP BP 09/09/20 21:00 90 121/71 09/09/20 20:40 87 144/77 H 09/09/20 20:20 89 126/71 09/09/20 20:00 73 141/74 H 09/09/20 19:40 87 116/73 09/09/20 19:20 77 123/74 09/09/20 19:00 98 H 127/77 09/09/20 18:40 103 H 120/78 09/09/20 18:30 36.5 C 108 H 09/09/20 15:50 102 H 09/09/20 15:25 36.5 C 109 H 20 133/84 09/09/20 10:35 36.6 C 103 H 19 132/81 Pulse Ox 09/09/20 21:00 09/09/20 20:40 09/09/20 20:20 09/09/20 20:00 09/09/20 19:40 09/09/20 19:20 09/09/20 19:00 09/09/20 18:40 09/09/20 18:30 09/09/20 15:50 09/09/20 15:25 95 12/10/20 10:35 92 Laboratory Results Cardiac Enzymes 09/09/20 09/09/20 Range/Units 01:24 09:33 Troponin I 64.200 H* 43.700 H* (0-0.045) ng/ml Coagulation 09/09/20 Range/Units 01:24 PT 30.8 H (9.0-12.0) Seconds Comprehensive Metabolic Panel 09/09/20 Range/Units 01:24 Sodium 133 L (136-145) mmol/L Potassium 4.7 (3.5-5.1) mmol/L Chloride 97 L (98-107) mmol/L Carbon Dioxide 24 (21-32) mmol/L BUN 54 H (7-18) mg/dl Creatinine 5.98 H* D (0.6-1.4) mg/dl Glucose 139 H (70-99) mg/dl Calcium 8.4 L (8.5-10.1) mg/dl ECG Additional Comments: EKG performed at [facility] and demonstrated NSR at 99 / min, inverted T-waves I, aVL, V2, biphasic T-waves V4-6.
--- NOTE | 2020-09-10 06:47 | Electrocardiogram Report ---
Test Reason : Blood Pressure : / mmHG Vent. Rate : 099 BPM Atrial Rate : 099 BPM P-R Int : 216 ms QRS Dur : 080 ms QT Int : 364 ms P-R-T Axes : 038 -74 148 degrees QTc Int : 467 ms Sinus rhythm with 1st degree A-V block Left axis deviation T wave abnormality, consider lateral ischemia Poor R wave progression, consider anterior PA vs. lead placement vs. LVH Abnormal ECG When compared with ECG of 08-SEP-2020 06:35, Premature supraventricular complexes are no longer Present Inverted T waves have replaced nonspecific T wave abnormality in Lateral leads Confirmed by Adelfo Marsh ([id number] on 09/10/2020 6:47:26 AM Referred By: REFERRED SELF Confirmed By:Adelfo Marsh
[2020-09-10 07:23] LABS: INR 2.3 (0.9-1.1); Prothrombin Time 22.8 Seconds (9.0-12.0)
[2020-09-10 07:32] LABS: Calcium 8.5 mg/dl (8.5-10.1); Est GFR (Non-African American) 11.2
[2020-09-10] MEDS: OMEGA-3 (PURIFIED FISH OIL) 1 GM CAP PO SCH (08:25)
[2020-09-10] MEDS: SEVELAMER HCL 800 MG TABLET PO SCH ×2 (08:25→12:10)
[2020-09-10] MEDS: NEPHROCAPS PO SCH (08:25)
[2020-09-10] MEDS: RASPBERRY SYRUP 5 ML UDP PO SCH (08:26)
[2020-09-10] MEDS: METOPROLOL SUCC 25MG EXT REL TAB PO SCH (08:27)
[2020-09-10] MEDS: VANCOMYCIN HCL 125 MG/2.5ML SOLN PO SCH (08:28)
[2020-09-10] MEDS: FLUTICASONE PROPIONATE NA SPR 16 GM BTL SCH (08:30)
[2020-09-10] MEDS: INSULIN ASPART 100 UNITS/ML 3 ML PEN SC SCH ×2 (09:00→12:02)
[2020-09-10] MEDS ORDERED: CLOPIDOGREL BISULFATE 75 MG TAB PO ONE (11:00)
--- NOTE | 2020-09-10 11:14 | Nephrology Progress Note ---
Date of Service September 10, 2020 Assessment & Plan (1) ESRD (end stage renal disease) on dialysis: For routine dialysis tomorrow, most likely as OP. vol status will be more challenging to manage moving forward now that he is back on BB but we will work on it. -continue renal diet and renvela and renal vitamin (2) Anemia of chronic disease: hemoglobin above ADILENE criteria; please monitor every 48 hours while in- house (3) Elevated troponin: Peak troponin 89 yesterday AM; per cardiology and primary service>>pt not a cath candidate per report Admission and Anticipated Discharge Date Admission Date: September 08, 2020 Subjective no further CP; no sob; no woresnign edema; very hungry Review of Systems Review of Systems: All systems reviewed & are unremarkable except as noted in HPI & below Physical Exam Constitutional: well developed and well nourished; no acute distress up in chair on RA having brkfst Eyes: EOM intact bilaterally ENMT: Ears: no external ear abnormality Nose: no external nose abnormality Mouth: + dry oral mucous membranes Neck: no nuchal rigidity Respiratory: normal respiratory effort Auscultation: + diminished lung sounds and + crackles (bibasilar) Cardiovascular: Rate/Rhythm: regular rate and regular rhythm Extremities: + edema (Indurated bilateral trace to 1+ lower extremity) and + AV fistula (Positive thrill and bruit) Gastrointestinal (Abdomen): Inspection/Auscultation: normal bowel sounds Percussion/Palpation: abdomen soft; abdomen nontender Musculoskeletal: Extremities: strength 5/5 throughout Skin: no rashes, warm and dry Neurologic: uribe, fluent speech, no tremor Psychiatric: A+Ox3, euthymic affect Results & Data ([facility]) Vital Signs (Past 12 Hours) Vital Signs Temp Pulse Pulse Pulse Resp BP Pulse Ox 09/10/20 11:08 36.5 C 110 H 22 113/64 96 09/10/20 07:23 113 H 09/10/20 06:42 36.8 C 100 H 18 114/71 95 09/10/20 03:32 36.5 C 87 17 113/65 97 09/09/20 23:38 36.8 C 92 H 18 126/75 97 Laboratory Results 09/08/20 07:08 09/10/20 06:57
[2020-09-10] MEDS ORDERED: ATORVASTATIN 40 MG TAB PO SCH (11:15)
--- NOTE | 2020-09-10 11:20 | Palliative Care Progress Note ---
Date of Service September 10, 2020 Assessment & Plan (1) Palliative care encounter: Anticipate discharge home today. He has extensive support at home and is followed by [facility]. He has been tolerating dialysis well and wishes to continue that for the time being. He would prefer to remain at home and not return to the hospital. Transition to hospice can be made if he his unable to tolerate dialysis. He confirms that he does not want CPR or intubation. (2) CHF (congestive heart failure): (3) CAD (coronary artery disease): Admission and Anticipated Discharge Date Admission Date: September 08, 2020 Subjective Not going for cath today. He has no complaints. Appetite is good. No dyspnea on room air. No chest pain. Review of Systems Review of Systems: [place] Symptom Assessment Scale Pain 0/3 Dyspnea 0/3 Anorexia 0/3 Nausea 0/3 Anxiety 0/3 Drowsiness 0/3 Palliative Performance Score 50% Physical Exam Constitutional: no acute distress Respiratory: normal respiratory effort; no labored breathing Cardiovascular: Extremities: + edema (lower extremities) Musculoskeletal: Extremities: strength 5/5 throughout Skin: warm and dry Psychiatric: A+Ox3, euthymic affect Results & Data ([facility]) Vital Signs (Past 12 Hours) Vital Signs Temp Pulse Pulse Pulse Resp BP Pulse Ox 09/10/20 11:08 97.7 F 110 H 22 113/64 96 09/10/20 07:23 113 H 09/10/20 06:42 98.2 F 100 H 18 114/71 95 09/10/20 03:32 97.7 F 87 17 113/65 97 09/09/20 23:38 98.2 F 92 H 18 126/75 97 PG Care Time/CCT Total # of Minutes Spent Total Time Spent with Patient: Total time spent is greater than 50% in coordination of care (as documented) at patient's floor/unit and/or counseling patient: Total time 30 minutes with more than 50% of time spent on goals of care, code status. Coding Level of Care Code 94244 Subseq Hosp Care Lvl 2 Diagnoses Palliative care encounter Z51.5 CHF (congestive heart failure) I50.9 CAD (coronary artery disease) I25.10
--- NOTE | 2020-09-10 12:02 | Cardiology Progress Note ---
Date of Service September 10, 2020 Assessment & Plan (1) Atypical chest pain: (2) Elevated troponin: (3) Chronic heart failure with preserved ejection fraction (HFpEF): (4) PAF (paroxysmal atrial fibrillation): (5) Chronic right heart failure: (6) CAD (coronary artery disease): (7) Recurrent Clostridium difficile diarrhea: (8) ESRD (end stage renal disease) on dialysis: (9) S/P ablation of atrial flutter: (10) H/O carotid endarterectomy: (11) S/P aortic valve replacement: Has remained asymptomatic since admission. Troponin has peaked and now trending down Results of echocardiogram and troponin reviewed with the patient and counseled that he may be actively having an ND with resultant significant ischemic cardiomyopathy. Treatment options discussed of aggressive versus nonaggressive measures particularly discussing cardiac catheterization the benefits and risk once kathryn [email or web address] The patient states "I am 85 years old and if God wants to take me he will take me." Declines cardiac catheterization at this time. We will treat medically and change metoprolol to 12.5 mg p.o. daily. Given the lack of benefit from cardiac catheterization along with our inability to provide aspirin I believe it would be prudent to treat the patient medically at this time. He is in agreement with this. We will not proceed with cardiac catheterization at this time instead treat medically. Patient once again made aware of likely end-stage disease. Okay to discharge to home from a cardiac standpoint. Will need cardiac follow- up in [place] outreach in the next week. Should receive Plavix 75 mg p.o. daily for 1 month given the non-STEMI. Continue current dose of metoprolol and atorvastatin on discharge. Consideration may be given to addition of Corlanor for further heart rate control. Appreciate input from our palliative care colleagues, I completely agree that the patient should be changed to at least DNR given end-stage disease. Admission and Anticipated Discharge Date Admission Date: September 08, 2020 Subjective Patient seen and examined, chart reviewed. Out of bed in chair states he is feeling well today. Denies any recurrences of his chest discomfort since admission. Denies shortness of breath, palpitations, lightheadedness, dizziness or syncope. Upon further questioning he states he has had a severe reaction to aspirin in the past almost anaphylactic. Telemetry reviewed: Atrial fibrillation with variable rates in the 90s to 110s. Review of Systems Review of Systems: All systems reviewed & are unremarkable except as noted in HPI & below Physical Exam Physical Exam: General: Awake, alert and oriented x 3. No acute distress. HEENT: Normocephalic, atraumatic. Pupils equal, round and reactive to light and accommodation. Extraocular muscles are intact. Anicteric sclera. Moist mucous membranes. Neck: No JVD. No bruit. Cardiovascular: Regular. Positive S-4. Normal S-1 and S-2. No S-3. 3/6 mid to late systolic ejection murmur, greatest at the right sternal border, second intercostal space with radiation to the bilateral carotids. No rubs. Pulmonary: Clear to auscultation bilaterally. No rales, rhonchi, or wheezing. Abdomen: Bowel sounds x 4, soft. No rebound, guarding or tenderness. No organomegaly. Extremities: No clubbing, cyanosis or edema. +2 pedal pulses bilaterally. Skin: Warm and dry. Results & Data ([place]) Vital Signs (Past 12 Hours) Vital Signs Temp Pulse Pulse Pulse Resp BP Pulse Ox 09/10/20 11:08 36.5 C 110 H 22 113/64 96 09/10/20 07:23 113 H 09/10/20 06:42 36.8 C 100 H 18 114/71 95 09/10/20 03:32 36.5 C 87 17 113/65 97
--- NOTE | 2020-09-10 14:21 | Hospitalist Progress Note ---
Date of Service September 10, 2020 Assessment & Plan (1) Non-ST elevation (NSTEMI) myocardial infarction: Presented with chest pain. EKG showed non-specific changes. Troponin as high as 86. Cardiology consulted. Echo showed mildly dilated LV, segmental wall motion abnormalities with overall LVEF 35-40%, grade 3 diastolic dysfunction, mildly dilated RV, bioprosthetic AVR with normal gradient, moderate TR, elevated PA systolic pressure. Cardiac cath was discussed, but eventually decided not to proceed because of extremely high risk and lack of potential benefit in light of aspirin allergy and inability to have PCI with stent placement. Anticoagulated on warfarin. Allergic to aspirin. Antiplatelet therapy with clopidogrel x 30 days recommended. Restarted on metoprolol in the form of metoprolol succinate 25 mg daily. No SAMPSON or ARB in light of CKD. LDL-c = 47. Discharged on atorvastatin 40 mg daily. (2) CHF (congestive heart failure): Prior history of HFpEF. Now with reduced LVEF of 35-40% as noted above. = mixed systolic + diastolic left ventricular heart failure. Compensated. Stared on metoprolol succinate 25 mg daily. SAMPSON / ARB and spironolactone contraindicated in light of CKD. Fluid management with hemodialysis. (3) PAF (paroxysmal atrial fibrillation): Metoprolol tartrate stopped a few months ago due to hypotension with hemodialysis. Intermittent AF during this hospital stay, sometimes with ventricular rate > 100. Started on metoprolol succinate 25 mg daily in light of rapid AF, acute non- STEMI, reduced LVEF. Continue anticoagulation with warfarin. INR was 3.4 day of admission. Warfarin was held. INR renato as high as 3.8. INR today = 2.3. Elevated INR may have been due to decreased PO intake in setting of acute AL. PO intake now good. Discharge on most recent outpatient dose of 5 mg daily with ongoing monitoring and management per [facility]. (4) ESRD (end stage renal disease) on dialysis: Management per Nephrology. (5) Dyslipidemia: Check LDL-c. Start high-intensity statin. (6) Diabetes mellitus type 2 with complications: DM type 2, complicated by CAD and CKD. Dietary management at home. Hgb A1c = 7.0. Insulin coverage as needed. FBS today = 93. Tight control not indicated in light of advanced age and comorbidities. 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 Ongoing management per Nephrology. (8) C. difficile colitis: History of chronic / recurrent C diff. Continue vancomycin. (9) Palliative care encounter: Advanced age with significant co-morbidities, including CKD V on hemodialysis and CAD with acute AL. Palliative Medicine consulted. Patient would like to receive ongoing hemodialysis and conservative treatment of his other problems. His does not wish to have extraordinary care, including CPR and mechanical ventilation. Code status changed to DNR. (10) Do not resuscitate status: As noted. (11) DVT prophylaxis: On warfarin for PAF with supratherapeutic --> therapeutic INR. (12) Discharge planning issues: Discharge to home. Family Medicine follow-up with Dr. Gooden. Nephrology follow-up with Dr. Myrick. Cardiology follow-up with Dr. Hernandez or his colleagues. Admission and Anticipated Discharge Date Admission Date: September 08, 2020 Subjective Recheck for AL and other problems. Patient seen in their room around 1330. It was determined that cardiac catheterization should not be performed because of high risk and lack of potential benefit due to aspirin allergy and inability to have PCI with stent placement. Feels well. No CP or SOB at rest. Ambulated in hallway without symptoms. Tolerating metoprolol. Anxious to go home. Physical Exam Constitutional: no acute distress Eyes: + anicteric sclerae Respiratory: normal respiratory effort, lungs clear to auscultation Cardiovascular: Rate/Rhythm: regular rate and regular rhythm Vessels: + JVD Extremities: + edema (trace pretibial); no calf tenderness Gastrointestinal (Abdomen): normal bowel sounds, soft, nontender, no hepa tosplenomegaly Musculoskeletal: Extremities: no cyanosis Skin: no rashes, warm and dry Psychiatric: Orientation: alert and oriented x 3 Results & Data Results & Data ([facility]) Vital Signs (Past 12 Hours) Vital Signs Temp Pulse Pulse Pulse Resp BP Pulse Ox 09/10/20 11:08 36.5 C 110 H 22 113/64 96 09/10/20 07:23 113 H 09/10/20 06:42 36.8 C 100 H 18 114/71 95 09/10/20 03:32 36.5 C 87 17 113/65 97 Laboratory Results 09/10/20 06:57
--- NOTE | 2020-09-11 01:38 | Discharge Summary ---
Date of Service Date of Admission: 09/07/20 Date of Discharge: 09/10/20 Admission HPI Per Admitting Provider This is an 84-year-old male who has significant past medical history of ESRD on HD //, T2DM, CAD, PAF anticoagulated on Coumadin, history of atrial flutter status post isthmus ablation, chronic HFpEF, history of aortic bioprosthetic valve replacement, nonobstructive CAD, HTN, recurrent Clostridium difficile on chronic Vanco therapy, GERD, PMR, history of PE s/p IVC filter, history of right CEA who presents to ED secondary to chest pain and left shoulder pain that started at 3:30 AM. He states he woke up this morning at approximately 3:30 AM to get ready for dialysis and was sitting on the toilet when he developed a sharp stabbing left-sided chest discomfort with radiation to left shoulder. Chest pain would come and go, made worse with sitting forward, nothing improved pain, not exacerbated with arm movement, and without associated nausea, vomiting, shortness of breath or diaphoresis. He denies prior pain in the past. He denies recent fever, chills, sweats, lightheadedness, dizziness, syncope, palpitations, edema, nausea, vomiting, abdominal pain, diarrhea, melena, hematochezia. Patient is due for dialysis today. He denies any recent activity or heavy lifting. He lives at home with his . He is [facility] at home patient. He did not receive any ASA secondary to allergy. He states he gets very sick in the stomach after taking aspirin. Patient did not receive nitro. Currently pain is absent. In ED patient remained hemodynamically stable. Lab work notable for H&H 11.1 and 34.4, WBC 9.25k, platelet 151, INR 3.4, sodium 135, BUN 70, creatinine 7.25, glucose 167, mag 2.9, troponin 0.065, proBNP 11,238. Rapid Covid negative. Chest x-ray negative for acute abnormality. Principal Diagnosis acute non-ST elevation myocardial infarction OTHER NEW / ACUTE DIAGNOSES: reduced LVEF supratherapeutic INR DNR status Discharge Data Allergies Allergy/AdvReac Type Severity Reaction Status Date / Time aspirin Allergy Unknown . Verified 09/07/20 06:16 salicylates Allergy Unknown UNKNOWN Verified 09/07/20 06:16 Consultations 09/07/20 07:32 ED Decision to Admit Stat 09/07/20 08:56 Consult Nephrology Routine 09/07/20 09:57 Consult Cardiology Routine Consult Case Management - Discharge Planning Routine 09/07/20 19:05 Consult Palliative Care Routine 09/10/20 09:00 Consult Cardiac Catheterization Routine Hospital Course (1) Non-ST elevation (NSTEMI) myocardial infarction: Presented with chest pain. EKG showed non-specific changes. Troponin as high as 86. Cardiology consulted. Echo showed mildly dilated LV, segmental wall motion abnormalities with overall LVEF 35-40%, grade 3 diastolic dysfunction, mildly dilated RV, bioprosthetic AVR with normal gradient, moderate TR, elevated PA systolic pressure. Cardiac cath was discussed, but eventually decided not to proceed because of extremely high risk and lack of potential benefit in light of aspirin allergy and inability to have PCI with stent placement. Anticoagulated on warfarin. Allergic to aspirin. Antiplatelet therapy with clopidogrel x 30 days recommended. Restarted on metoprolol in the form of metoprolol succinate 25 mg daily. No SAMPSON or ARB in light of CKD. LDL-c = 47. Discharged on atorvastatin 40 mg daily. (2) CHF (congestive heart failure): Prior history of HFpEF. Now with reduced LVEF of 35-40% as noted above. = mixed systolic + diastolic left ventricular heart failure. Compensated. Stared on metoprolol succinate 25 mg daily. SAMPSON / ARB and spironolactone contraindicated in light of CKD. Fluid management with hemodialysis. Weight will be monitored with dialysis. (3) PAF (paroxysmal atrial fibrillation): Metoprolol tartrate stopped a few months ago due to hypotension with hemodialysis. Intermittent AF during this hospital stay, sometimes with ventricular rate > 100. Started on metoprolol succinate 25 mg daily in light of rapid AF, acute non- STEMI, reduced LVEF. Continue anticoagulation with warfarin. INR was 3.4 day of admission. Warfarin was held. INR renato as high as 3.8, then drifted down to 2.3 by day of discharge. Elevated INR may have been due to decreased PO intake in setting of acute OH. PO intake now good. Discharged on most recent outpatient dose of 5 mg daily with ongoing monitoring and management per [facility]. (4) ESRD (end stage renal disease) on dialysis: Management per Nephrology. (5) Dyslipidemia: LDL-c = 47. Discharged on atorvastatin 40 mg daily. (6) Diabetes mellitus type 2 with complications: DM type 2, complicated by CAD and CKD. Dietary management at home. Hgb A1c = 7.0. Insulin coverage as needed. FBS day of discharge 93. Tight control not indicated in light of advanced age and comorbidities. Continue dietary management. 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 Ongoing management per Nephrology. (8) C. difficile colitis: History of chronic / recurrent C diff. Continue vancomycin. (9) Palliative care encounter: Advanced age with significant co-morbidities, including CKD V on hemodialysis and CAD with acute OH. Palliative Medicine consulted. Patient would like to receive ongoing hemodialysis and conservative treatment of his other problems. His does not wish to have extraordinary care, including CPR and mechanical ventilation. Code status changed to DNR. (10) Do not resuscitate status: As noted. (11) DVT prophylaxis: On warfarin for PAF with supratherapeutic --> therapeutic INR. (12) Discharge planning issues: Discharged to home. Family Medicine follow-up with Dr. Gooden. Nephrology follow-up with Dr. Myrick. Cardiology follow-up with Dr. Hernandez or his colleagues. Total Time Total Time Spent Total Time Spent (In Minutes): 45 Discharge Plan Discharge Items Patient Disposition: Home - Self-Care Reason For Visit: chest pain Discharge Diagnosis: myocardial infarction (heart attack) Activity: As commented below Activity Comment: Light activity as tolerated. Non-emergency contact: Primary Care Provider, [employer] Call non-emergency contact if: you have any medication questions Follow-up/Referrals: Tam Hernandez DO [Physician] - (Office will call with appointment.) Ashly Myrick MD, PhD [Physician] - Zach Gooden MD [Primary Care Provider] - (Date & Time 09/15/2020 3:00 PM Zach Gooden MD Internal Medicine [facility] ) Diet: Carb Consistent or DM2 and Heart Healthy Addtl Attending Provider Instructions: MEDICATION CHANGES: clopidogrel (Plavix) 75 mg daily for 30 days blood thinner for heart attack metoprolol succinate (Toprol XL) 25 mg daily for blockage in coronary arteries (Please note that this is a different type of metoprolol than you had before.) atorvastatin (Lipitor) 40 mg daily for high cholesterol nitroglycerin 0.4 mg 1 pill under tongue as needed for chest pain call 911 if no relief lie down if you feel lightheaded or dizzy SUMMARY OF TEST RESULTS: Blood tests and ultrasound of heart showed that you had a heart attack. INR was 3.4 when you were admitted and 2.3 day of discharge. Continue same dose of warfarin for now. You should have an INR checked next week. RECOMMENDATIONS FOR FOLLOW-UP: Cardiology follow-up with Dr. Hernandez or one of his colleagues. Office will contact you with appointment. OTHER INSTRUCTIONS: Seek medical attention if you have: * temperature above 101 * chest pain or trouble breathing * abdominal pain, nausea, vomiting * diarrhea, dark stools or bloody stools * any unanswered questions or concerns Call 911 if symptoms are severe. Please take good care of yourself. Call if you have any questions or problems. You can reach a [facility] hospitalist on duty at [facility] 24 hours a day by calling [phone]. My cell # is [phone]. Pending Studies at Discharge: No Stand-Alone Forms: My [facility], Smoking Cessation Medications and DC Order Prescriptions: New atorvastatin 40 mg Tablet 40 mg PO QAM Qty: 30 RF: 5 metoprolol succinate 25 mg Tablet Extended Release 24 Hr 25 mg PO QAM Qty: 30 RF: 5 clopidogrel 75 mg tablet 75 mg PO DAILY Qty: 30 RF: 0 nitroglycerin 0.4 mg tablet, sublingual 0.4 mg sublingual ONCE PRN (Reason: chest pain) Qty: 25 RF: 1 Continued omega 5-[id number]-gkw-fish oil [Fish Oil] 1,000 mg (120 mg-180 mg) Capsule 1 cap PO DAILY RF: 0 Nephro-Neeraj 0.8 mg tablet 1 tab PO DAILY RF: 0 buprenorphine 7.5 mcg/hour patch weekly 1 patch topical WK RF: 0 ondansetron HCl 4 mg tablet 4 mg PO Q6 PRN (Reason: Nausea) RF: 0 vancomycin 125 mg capsule 125 mg PO DAILY RF: 0 diphenoxylate-atropine 2.5-0.025 mg tablet 1 - 2 tab PO UD MDD 8 tabs PRN (Reason: Diarrhea) RF: 0 menthol [Ice Blue Gel] 2 % Gel 1 applic TOPICAL UD PRN (Reason: Pain) RF: 0 fluticasone propionate 50 mcg/actuation [place],Suspension 1 spray INTRANASAL DAILY RF: 0 cholecalciferol (vitamin D3) [Vitamin D3] 1,000 unit Capsule 1,000 unit PO HS RF: 0 docusate sodium 100 mg Tablet 100 mg PO BID PRN (Reason: Constipation) RF: 0 lidocaine-prilocaine 2.5-2.5 % cream 1 applic topical 3XWK RF: 0 warfarin 5 mg tablet 5 mg PO DAILY RF: 0 sevelamer carbonate [Renvela] 800 mg Tablet 800 mg PO BID RF: 0 sevelamer carbonate [Renvela] 800 mg Tablet 1,600 mg PO DAILYBD RF: 0 Discharge Orders: Discharge Order (Routine); Ordered 09/10/20 Ordered By: Ted Conti Admission Data Admit Date/Time: 09/08/20 11:55 Attending Provider: Ted Conti Admit Provider: Chet Barnes Primary Care Provider: Zach Gooden Other Providers: Ashly Myrick ; Janice Dockery ; Tam Hernandez Karen L. ; Chet Barnes ; Buster Bell Other Interventions: Discharge Summary Assessment (RN) Last Done: 09/10/20 14:26
== END 2020-09-10 14:43 | disposition home health service (06) | DRG 280 ==
LOC: ED 05:30 → 2S 05:30 → SUATTDRO 09-08 11:55 → 2S 09-09 17:42

== ENCOUNTER 2020-10-06 19:07 | Inpatient (IN) ==
--- NOTE | 2020-10-06 19:58 | Emergency Department Note ---
Impression & Plan [facility] Provider Note Provider: Omari Tanner MD DATE OF SERVICE:10/06/2020 CHIEF COMPLAINT: Black stools HISTORY OF PRESENT ILLNESS: Patient is a 85-year-old gentleman complex medical history including ESRD, CAD, atrial fibrillation on Coumadin, chronic heart failure, bioprosthetic valve, CAD, hypertension, prior C. difficile on chronic vancomycin therapy, GERD, PMR, PE with IVC filter, right CEA presenting here today referred by home health due to some black stool. Patient states he noted it first last evening. States has had 3 or 4 episodes of nondiarrheal but loose stools that have been black in nature. Denies any blood or bright red blood. Denies any significant chest pain or shortness of breath or generalized weakness. Patient states he did have dialysis yesterday developed some back pain with this. States his normal back patches ran out as well. Shortened his dialysis by an hour to only 3 hours instead of 4 due to this pain. Patient states had pain like this in the past. Got some new patches for her back and that has improved this but is still slightly discomfort to him. Denies any falls. Denies any vomiting or nausea. EMS report he might have a little bit of umbilical tenderness but the patient denies this and states his abdomen is nontender. Patient states home health for some blood work and then called him and told him he should come to the emergency department. He was somewhat resistant but his family convinced him. REVIEW OF SYSTEMS: A total of 10 review of systems was obtained and negative except as stated above in the HPI. PAST MEDICAL HISTORY: As noted above MEDICATIONS: Reviewed home medication list SOCIAL HISTORY: Lives at home with and 6 dogs PHYSICAL EXAM: GENERAL: alert and oriented in no acute distress on stretcher Head: normocephalic and atraumatic EYES: No injection, discharge or icterus. NECK: Trachea midline. LUNGS: Airway patent. No retractions. Breath sounds clear HEART: Regular rate and rhythm. No chest wall tenderness ABDOMEN: Soft and non-tender, without guarding or rebound. No masses Rectal: With patient permission and under denture finisher Hemoccult positive black stool was noted with some tenderness around the anal area without zoë red blood or clots noted. BACK: No bilateral flank tenderness. SKIN: Acyanotic, warm, dry, without rashes EXTREMITIES: Without tenderness or deformity with a left upper extremity fistula with thrill. There are some chronic stasis and mild edema of the bilateral lower extremities. NEUROLOGICAL: No focal deficits. No aphasia. No facial droop or slurred speech. EK bpm appears to be a normal sinus rhythm without acute PVC or PAC. No ST segment elevation or depression but diffuse precordial T wave inversions are noted as well as in aVL. QTc is somewhat prolonged. Compared to previous from September 09 of this year 2 inversions appear increased across the precordium. CONTINUOUS CARDIAC MONITORING: was ordered and showed a heart rate of 85 bpm in normal sinus rhythm rare periods of A. fib. Patient's laboratory studies and imaging reviewed. Differential includes Diverticulosis, AVM, coagulopathy, colitis, inflammatory bowel disease, malignancy, Julia-Lara tear, esophagitis, peptic ulcer disease, variceal bleed, gastritis, epistaxis, fissure, hemorrhoids, as well as other pathologies. IMPRESSION/MEDICAL DECISION MAKING: Patient presents after noting some melanotic stools while on Coumadin and with significant complex medical history. Patient denies significant symptomatic anemia at this point but had some blood work drawn by home health. This shows a hemoglobin 8.4 today which is approximately 2-1/2 g drop compared to previous when he was here in August. Recheck here shows a hemoglobin 9.2 still almost a 2 g drop. Did have a cardiac injury in August but again denies chest pain today. Denies any abdominal pain on exam here denies significant diarrhea. INR was checked as well as repeat laboratory studies and type and screen was sent. INR therapeutic at 2.4. Creatinine is elevated consistent with hemodialysis w ithout significant hyperkalemia noted. Is due for dialysis tomorrow. Troponin just barely detectable again not having chest pain doubt ACS. proBNP significantly elevated but not hypoxic it does appear that fluid overload at this time. Slight elevation of lipase but no believe this represents granda creatitis given his very mild elevation. CT the abdomen pelvis with contrast given his renal status we completed look for other possible intra-abdominal complaints given the melanotic stool and back pain. While he reports this back pain I do not believe this is spinal cord related may be chronic related to his chronic medical issues. Patient likely not significantly hypotensive here. CT scan with evidence of bowel thickening or obstruction no hydronephrosis. No acute fractures noted. They do question on the report some atelectasis/consolidation in the lungs not having infectious symptoms here and doubt this is pneumonia believe it is atelectasis. Discussed with the patient given his anticoagulation status multiple medical comorbidities and the heme positive stool recommended further observation here especially with a hemoglobin drop. He is in agreement with this. The hospitalist was contacted. DIAGNOSIS: Melanotic stools DISPOSITION: Hospitalist will evaluate Patient was agreeable with this plan. 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 Do not resuscitate status DVT (deep venous thrombosis) " 01/13/09 left leg " Dyslipidemia ESRD (end stage renal disease) on dialysis GERD (gastroesophageal reflux disease) Gram-positive bacteremia HTN (hypertension) Hx of amaurosis fugax "01/27/09, OD " PMR (polymyalgia rheumatica) 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 Pulmonary embolus Type 2 diabetes mellitus Surgical History (Updated 09/12/20 @ 09:21 by Ted Conti MD) H/O carotid endarterectomy "2008" H/O removal of testicle H/O superior vena cava filter placement History of hydrocelectomy History of total hip replacement S/P ablation of atrial flutter S/P aortic valve replacement "bio prosthetic" S/P cardiac cath "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" Family History Mother Hypertension Brother Stroke Social History Smoking Status: Never smoker Second Hand Exposure: No; Hx Alcohol Use: No Hx Substance Use: No Preferred Language: Irish Communication Ability: Effective Visual Impairment: Partially Limited Machine Pecan Gatherer Required: No Beliefs That Will Affect Care: None marital status: Current Living Situation: Spouse Current Living Situation Comment: lives with Vannesa and six dogs in three story home. How many Children do You have: 4 Feels Safe at Home: Yes Assistive Devices: Walker Allergies Allergies Allergy/AdvReac Type Severity Reaction Status Date / Time aspirin Allergy Unknown . Verified 10/06/20 22:42 salicylates Allergy Unknown UNKNOWN Verified 10/06/20 22:42 Home Meds Home Medications Medication Instructions Recorded Confirmed cholecalciferol (vitamin D3) 1,000 unit PO HS 06/14/18 10/06/20 [Vitamin D3] docusate sodium 100 mg PO BID PRN 03/18/19 10/06/20 omega 4-hcy-kfr-fish oil [Fish Oil] 1 cap PO DAILY 05/21/19 10/06/20 lidocaine-prilocaine 1 applic TOPICAL 3XWK 11/13/19 10/06/20 sevelamer carbonate [Renvela] 1,600 mg PO DAILYBD 11/13/19 10/06/20 sevelamer carbonate [Renvela] 800 mg PO BID 11/13/19 10/06/20 warfarin 5 mg PO UD 11/13/19 10/06/20 Nephro-Neeraj 1 tab PO DAILY 09/07/20 10/06/20 buprenorphine 1 patch TOPICAL WK 09/07/20 10/06/20 diphenoxylate-atropine 1 - 2 tab PO UD PRN MDD 8 tabs 09/07/20 10/06/20 fluticasone propionate 1 spray INTRANASAL DAILY 09/07/20 10/06/20 menthol [Ice Blue Gel] 1 applic TOPICAL UD PRN 09/07/20 10/06/20 ondansetron HCl 4 mg PO Q6 PRN 09/07/20 10/06/20 vancomycin 125 mg PO DAILY 09/07/20 10/06/20 acetaminophen 1,000 mg PO Q8 PRN 10/06/20 10/06/20 hydrocodone-acetaminophen 1 tab PO Q8 PRN 10/06/20 10/06/20 Previous Rx's Medication Instructions Recorded atorvastatin 40 mg PO QAM #30 tab 09/10/20 clopidogrel 75 mg PO DAILY #30 tab 09/10/20 nitroglycerin 0.4 mg SUBLINGUAL ONCE PRN #25 tab 09/10/20 Results & Data (ED) Vital Signs Vital Signs - 24 hr 10/06/20 19:23 10/06/20 19:25 10/06/20 19:30 Temperature Temperature Source Pulse Rate 101 H 101 H 99 H Pulse Rate from SpO2 Sensor 99 H 101 H 100 H Pulse Rhythm Pulse Strength Respiratory Rate 19 22 18 Respiratory Effort / Characteristics Respiratory Depth Blood Pressure 144/83 H 111/70 Blood Pressure Mean 98 78 Blood Pressure Position Pulse Oximetry 99 99 98 Oxygen Delivery Method Sepsis Recent Fever Within 48 Hours Sepsis New/Unexplained Change in Mental Status Sepsis Action Taken by Nursing 10/06/20 19:32 10/06/20 19:36 10/06/20 20:00 Temperature 36.6 C Temperature Source Oral Pulse Rate 101 H 96 H Pulse Rate from SpO2 Sensor 98 H Pulse Rhythm Regular Pulse Strength Normal Respiratory Rate 24 16 Respiratory Effort / Characteristics Non-Labored Spontaneous Respiratory Depth Normal Blood Pressure 116/78 Blood Pressure Mean 90 Blood Pressure Position Lying Pulse Oximetry 99 99 95 Oxygen Delivery Method Room Air Room Air Sepsis Recent Fever Within 48 Hours No Sepsis New/Unexplained Change in Mental Status N/A Sepsis Action Taken by Nursing No Action Required 10/06/20 20:30 10/06/20 21:00 10/06/20 21:01 Temperature Temperature Source Pulse Rate 86 97 H 96 H Pulse Rate from SpO2 Sensor 86 99 H 96 H Pulse Rhythm Pulse Strength Respiratory Rate 17 15 18 Respiratory Effort / Characteristics Respiratory Depth Blood Pressure 114/71 Blood Pressure Mean 80 Blood Pressure Position Pulse Oximetry 97 97 99 Oxygen Delivery Method Sepsis Recent Fever Within 48 Hours Sepsis New/Unexplained Change in Mental Status Sepsis Action Taken by Nursing 10/06/20 21:30 10/06/20 22:00 10/06/20 22:30 Temperature Temperature Source Pulse Rate 87 84 81 Pulse Rate from SpO2 Sensor 87 85 80 Pulse Rhythm Pulse Strength Respiratory Rate 33 H 21 24 Respiratory Effort / Characteristics Respiratory Depth Blood Pressure 118/66 111/62 107/71 Blood Pressure Mean 87 72 89 Blood Pressure Position Pulse Oximetry 99 97 97 Oxygen Delivery Method Sepsis Recent Fever Within 48 Hours Sepsis New/Unexplained Change in Mental Status Sepsis Action Taken by Nursing Laboratory Data Result diagrams: 10/06/20 19:54 10/06/20 19:54 Lab Results 10/06/20 10/06/20 10/06/20 Range/Units 19:37 19:54 19:54 WBC (4.8-10.8) K/uL RBC (4.7-6.1) M/uL Hgb (14.0-18.0) g/dL Hct (42-52) % MCV (80-100) fL MCH (25-34) pg MCHC (32-36) g/dL RDW Std Deviation (36.4-46.3) fL RDW Coeff of Elvia (11.5-14.5) % Plt Count (130-400) K/uL MPV (7.4-10.4) fL Immature Gran % (Auto) % Neut % (Auto) % Lymph % (Auto) % [place] % (Auto) % Eos % (Auto) % Baso % (Auto) % Neut # (Auto) (1.4-6.5) K/uL Lymph # (Auto) (1.2-3.4) K/uL [place] # (Auto) (0.11-0.59) K/uL Eos # (Auto) (0-0.5) K/uL Baso # (Auto) (0-0.2) K/uL Immature Gran # (Auto) (0.00-0.02) K/uL Macrocytosis PT (9.0-12.0) Seconds INR (0.9-1.1) APTT (21.0-31.0) Seconds PTT Ratio Sodium 135 L (136-145) mmol/L Potassium 4.2 (3.5-5.1) mmol/L Chloride 94 L (98-107) mmol/L Carbon Dioxide 32 (21-32) mmol/L Anion Gap 9.0 (3-11) BUN 68 H (7-18) mg/dl Creatinine 5.22 H* (0.6-1.4) mg/dl Est Cr Clr Drug Dosing 11.3 ml/min Est GFR ( Amer) 10.7 Est GFR (Non-Af Amer) 9.3 BUN/Creatinine Ratio 13.0 (10-20) Glucose 180 H (70-99) mg/dl Calcium 9.0 (8.5-10.1) mg/dl Total Bilirubin 0.3 (0.2-1) mg/dl AST 33 (15-37) U/L ALT 40 (12-78) U/L Alkaline Phosphatase 203 H (45-117) U/L Troponin I 0.065 H* (0-0.045) ng/ml NT-Pro-B Natriuret Pep > 75153 H (0-1800) pg/ml Total Protein 8.6 H (6.4-8.2) gm/dl Albumin 2.9 L (3.4-5.0) gm/dl Globulin 5.7 H (2.5-4.0) gm/dl Albumin/Globulin Ratio 0.5 L (0.9-2) Lipase 496 H (73-393) U/L POC Stool Occult Blood Positive A (Negative) SARS-CoV-2 Ag (Rapid) (Negative) Blood Type B Positive Antibody Screen NEGATIVE 10/06/20 10/06/20 10/06/20 Range/Units 19:54 19:54 22:12 WBC 9.36 (4.8-10.8) K/uL RBC 2.45 L (4.7-6.1) M/uL Hgb 9.2 L (14.0-18.0) g/dL Hct 29.0 L (42-52) % MCV 118.4 H (80-100) fL MCH 37.6 H (25-34) pg MCHC 31.7 L (32-36) g/dL RDW Std Deviation 71.6 H (36.4-46.3) fL RDW Coeff of Elvia 17.0 H (11.5-14.5) % Plt Count 155 (130-400) K/uL MPV 12.3 H (7.4-10.4) fL Immature Gran % (Auto) 1.4 % Neut % (Auto) 70.7 % Lymph % (Auto) 15.2 % [place] % (Auto) 10.4 % Eos % (Auto) 1.9 % Baso % (Auto) 0.4 % Neut # (Auto) 6.62 H (1.4-6.5) K/uL Lymph # (Auto) 1.42 (1.2-3.4) K/uL [place] # (Auto) 0.97 H (0.11-0.59) K/uL Eos # (Auto) 0.18 (0-0.5) K/uL Baso # (Auto) 0.04 (0-0.2) K/uL Immature Gran # (Auto) 0.13 H (0.00-0.02) K/uL Macrocytosis Present PT 24.0 H (9.0-12.0) Seconds INR 2.4 H (0.9-1.1) APTT 49.1 H* (21.0-31.0) Seconds PTT Ratio 1.8 Sodium (136-145) mmol/L Potassium (3.5-5.1) mmol/L Chloride (98-107) mmol/L Carbon Dioxide (21-32) mmol/L Anion Gap (3-11) BUN (7-18) mg/dl Creatinine (0.6-1.4) mg/dl Est Cr Clr Drug Dosing ml/min Est GFR ( Amer) Est GFR (Non-Af Amer) BUN/Creatinine Ratio (10-20) Glucose (70-99) mg/dl Calcium (8.5-10.1) mg/dl Total Bilirubin (0.2-1) mg/dl AST (15-37) U/L ALT (12-78) U/L Alkaline Phosphatase (45-117) U/L Troponin I (0-0.045) ng/ml NT-Pro-B Natriuret Pep (0-1800) pg/ml Total Protein (6.4-8.2) gm/dl Albumin (3.4-5.0) gm/dl Globulin (2.5-4.0) gm/dl Albumin/Globulin Ratio (0.9-2) Lipase (73-393) U/L POC Stool Occult Blood (Negative) SARS-CoV-2 Ag (Rapid) Negative (Negative) Blood Type Antibody Screen Administered Medications Discontinued Medications Pantoprazole Sodium 80 mg/ (Dextrose) 100 mls @ 400 mls/hr IV ONE STA Stop: 10/06/20 21:52 Last Infusion: 10/06/20 22:17 Dose: 0 mls/hr Documented by: [id number] Admin: 10/06/20 21:56 Dose: 400 mls/hr Documented by: [id number] Discharge Plan Visit Data Chief Complaint: GI Bleed Stated Complaint: BLOOD IN STOOL, AB TENDERNESS ED Provider: Omari Tanner Discharge Problem: [facility] Forms Stand Alone Forms: My [facility] Prescriptions Prescriptions: No Action omega 9-hqp-vfk-fish oil [Fish Oil] 1,000 mg (120 mg-180 mg) Capsule 1 cap PO DAILY RF: 0 Nephro-Neeraj 0.8 mg tablet 1 tab PO DAILY RF: 0 buprenorphine 7.5 mcg/hour patch weekly 1 patch topical WK RF: 0 ondansetron HCl 4 mg tablet 4 mg PO Q6 PRN (Reason: Nausea) RF: 0 vancomycin 125 mg capsule 125 mg PO DAILY RF: 0 diphenoxylate-atropine 2.5-0.025 mg tablet 1 - 2 tab PO UD MDD 8 tabs PRN (Reason: Diarrhea) RF: 0 menthol [Ice Blue Gel] 2 % Gel 1 applic TOPICAL UD PRN (Reason: Pain) RF: 0 fluticasone propionate 50 mcg/actuation [place],Suspension 1 spray INTRANASAL DAILY RF: 0 atorvastatin 40 mg Tablet 40 mg PO QAM Qty: 30 RF: 5 clopidogrel 75 mg tablet 75 mg PO DAILY Qty: 30 RF: 0 nitroglycerin 0.4 mg tablet, sublingual 0.4 mg sublingual ONCE PRN (Reason: chest pain) Qty: 25 RF: 1 acetaminophen 500 mg Tablet 1,000 mg PO Q8 PRN (Reason: Pain) RF: 0 hydrocodone-acetaminophen 5-325 mg tablet 1 tab PO Q8 PRN (Reason: Pain) RF: 0 cholecalciferol (vitamin D3) [Vitamin D3] 1,000 unit Capsule 1,000 unit PO HS RF: 0 docusate sodium 100 mg Tablet 100 mg PO BID PRN (Reason: Constipation) RF: 0 lidocaine-prilocaine 2.5-2.5 % cream 1 applic topical 3XWK RF: 0 warfarin 5 mg tablet 5 mg PO UD RF: 0 sevelamer carbonate [Renvela] 800 mg Tablet 800 mg PO BID RF: 0 sevelamer carbonate [Renvela] 800 mg Tablet 1,600 mg PO DAILYBD RF: 0
[2020-10-06 20:04] LABS: Hemoglobin 9.2 g/dL (14.0-18.0); Mean Corpuscular Hemoglobin 37.6 pg (25-34); Mean Corpuscular Hgb Conc 31.7 g/dL (32-36); Mean Corpuscular Volume 118.4 fL (80-100); Mean Platelet Volume 12.3 fL (7.4-10.4); Platelet Count 155 K/uL (130-400); RDW Standard Deviation 71.6 fL (36.4-46.3); Red Blood Count 2.45 M/uL (4.7-6.1); White Blood Count 9.36 K/uL (4.8-10.8)
[2020-10-06 20:35] LABS: Alanine Aminotransferase 40 U/L (12-78); Albumin Globulin Ratio 0.5 (0.9-2); Albumin Level 2.9 gm/dl (3.4-5.0); Alkaline Phosphatase 203 U/L (45-117); Aspartate Aminotransferase 33 U/L (15-37); Bilirubin,Total 0.3 mg/dl (0.2-1); Blood Urea Nitrogen 68 mg/dl (7-18); Carbon Dioxide 32 mmol/L (21-32); Chloride 94 mmol/L (98-107); Creatinine Clr Calc Pharmacy 11.3 ml/min; Est GFR (African American) 10.7; Est GFR (Non-African American) 9.3; Globulin 5.7 gm/dl (2.5-4.0); Glucose 180 mg/dl (70-99); Lipase 496 U/L (73-393); NT Pro B Type Natriuretic Pept > 35000 pg/ml (0-1800); Potassium 4.2 mmol/L (3.5-5.1); Sodium 135 mmol/L (136-145); Total Protein 8.6 gm/dl (6.4-8.2); Troponin I 0.065 ng/ml (0-0.045)
[2020-10-06 20:48] LABS: INR 2.4 (0.9-1.1); Partial Thromboplastin Ratio 1.8
[2020-10-06 20:49] LABS: Basophils # (auto) 0.04 K/uL (0-0.2); Basophils % (auto) 0.4 %; Eosinophils # (auto) 0.18 K/uL (0-0.5); Eosinophils % (auto) 1.9 %; Immature Granulocytes # (auto) 0.13 K/uL (0.00-0.02); Immature Granulocytes % (auto) 1.4 %; Lymphocytes # (auto) 1.42 K/uL (1.2-3.4); Lymphocytes % (auto) 15.2 %; Macrocytosis Present; Monocytes # (auto) 0.97 K/uL (0.11-0.59); Monocytes % (auto) 10.4 %; Neutrophils # (auto) 6.62 K/uL (1.4-6.5); Neutrophils % (auto) 70.7 %
--- NOTE | 2020-10-06 20:50 | CT Scan Report ---
ABDOMEN AND PELVIS CT WITHOUT CONTRAST CT DOSE: 846.60 mGy.cm HISTORY: [facility], back pain TECHNIQUE: Multiaxial CT images of the abdomen and pelvis were performed without contrast. A dose lo wering technique was utilized adhering to the principles of ALARA. COMPARISON STUDY: Abdomen and pelvis CT 11/13/2019. FINDINGS: Small linear areas consolidation seen within the right middle lobe and left lower lobe. The se are new from the prior study and could represent atelectasis or a pneumonia. Scattered micronodule s and mild interstitial thickening persists. This suggests a chronic process and could be due to sarc oidosis. There are poststernotomy changes. An aortic valve prosthesis is again noted. Dense coronary artery calcifications are present. Moderate T12 old compression deformity remains unchanged. Moderate to severe degenerative disc disease seen throughout the lumbar spine. No pneumoperitoneum. No pneuma tosis. A right hip prosthesis is again noted. Right-sided gynecomastia. Chronic atrophy of the right psoas muscle. Multiple tiny gallstones. No gallbladder wall thickening. The unenhanced liver, spleen, adrenal glands, and pancreas are within normal limits. Extensive calcified plaque within the normal caliber aorta and iliac vessels. There is also extensive atherosclerotic plaque throughout the mesent osman and renal arteries. An IVC filter is unchanged in position. Chronic calcification within the pos terior IVC, unchanged. This is consistent with chronic thrombus. Mild infiltration of the central mes enteric fat, unchanged. This is likely chronic. No hydronephrosis. The bladder is decompressed but ap pears unremarkable. Prostate gland is normal in size. Stable left renal hypodense lesion which likely represents a cyst. No retroperitoneal hematoma. Suboptimal evaluation for bowel pathology due to the lack of intravenous and oral contrast. However, there is no definite bowel wall thickening or obstru ction. Moderate rectal stool ball is noted. Colonic diverticulosis. No evidence for acute diverticuli tis. Moderate well-formed stool seen within the majority of the colon. Normal appendix. IMPRESSION: 1. No definite bowel wall thickening or obstruction. 2. No hydronephrosis. 3. Stable chronic compression deformity at T12. No acute fractures identified. 4. Moderate well-formed stool seen throughout the colon and rectum. 5. There are small linear areas consolidation within the right middle lobe and left lower lobe. This could represent atelectasis or pneumonia. 6. Additional stable chronic changes as described above. ACT 112: Negative or not required by law. Electronically signed by: Vincent Appiah M.D. 10/06/2020 8:49 PM
[2020-10-06 21:07] LABS: Partial Thromboplastin Time 49.1 Seconds (21.0-31.0)
[2020-10-06] MEDS ORDERED: PANTOprazole 80 MG in DEXTROSE 5% 100 ML IV STA (21:38)
[2020-10-07] MEDS ORDERED: PHYTONADIONE 5 MG TAB PO STA (00:17)
--- NOTE | 2020-10-07 02:15 | History and Physical Report ---
DATE OF ADMISSION: 10/07/2020 CHIEF COMPLAINT: GI bleed. 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 THE PATIENT HAS ALLERGY TO ASPIRIN. He was anticoagulated on Coumadin and cardiology started on Toprol-XL 25 mg p.o. daily, no SAMPSON, ARB in light of CKD and he was started on atorvastatin 40 mg daily and Plavix 75 mg p.o. daily for 30 days was recommended. The patient says since yesterday he has had 3-4 black stools. Denies any abdominal pain. Did not notice any blood in the stools. His Hemoccult was positive in the ER. Denies any chest pain, no shortness of breath, no cough, no headache, no blurred vision, no earache, no runny nose, no sore throat, no nausea, no vomiting. Normal bladder movements. Lives with his . Ambulating okay. Currently resting comfortably and hemodynamically stable. ALLERGIES: ASPIRIN AND SALICYLATES. PAST MEDICAL HISTORY: As mentioned above. PAST SURGICAL HISTORY: Carpal tunnel surgery, colonoscopy, colonoscopy with biopsy, IVC filter, repair of hydrocele, bioprosthetic aortic valve replacement, right internal carotid artery endarterectomy, right total hip replacement. MEDICATIONS: The patient is on Tylenol 1000 mg p.o. q. 8 p.r.n., atorvastatin 40 mg p.o. a.m., Buprenorphine 1 patch topically weekly, vitamin D 1000 units p.o. at bedtime, Plavix 75 mg p.o. daily, diphenoxylate atropine 1-2 tablets p.r.n., Colace 100 mg p.o. b.i.d. p.r.n., Flonase 1 spray intranasal daily, hydrocodone/acetaminophen 1 tablet q. 8 hours p.r.n., lidocaine, prilocaine application topically 3 times a week, menthol 1 application topically p.r.n., Nephro-Neeraj 1 tablet p.o. daily, nitroglycerin 0.4 mg sublingual p.r.n., omega fish oil 1 capsule p.o. daily, Zofran 4 mg p.o. q. 6 hours p.r.n., Renvela 800 mg p.o. b.i.d., Renvela 600 mg p.o. daily before dinner, vancomycin 125 mg p.o. daily, Coumadin 5 mg as directed. FAMILY HISTORY: Significant for mother has chronic kidney disease, hypertension. Brother has hypertension and stroke. SOCIAL HISTORY: and lives with his . No smoking, no alcohol, no drug use. REVIEW OF SYSTEMS: As per HPI. Rest of review of systems negative. PHYSICAL EXAMINATION: GENERAL: The patient is of moderate build, not in acute distress. VITAL SIGNS: Temperature 36.6, pulse 88, respiratory rate in the 20s, blood pressure 110/67, oxygen 98% on room air. HEENT: No pallor, no icterus. Oral mucosa moist. NECK: No JVD. No neck masses. CARDIOVASCULAR: S1, S2 heard, regular rate and rhythm, no murmur, no gallop. RESPIRATORY SYSTEM: Normal AP diameter. No accessory muscle use. No wheezing, no crackles. ABDOMEN: Soft, bowel sounds present, nontender. No distention. CENTRAL NERVOUS SYSTEM: Cranial nerves II-XII grossly intact, nonfocal. EXTREMITIES: Chronic lower extremity edema present, no erythema seen. LABORATORY DATA: WBC is 9.3, hemoglobin 9.2, hematocrit 29, platelets 455. PT 24, INR 2.4, APTT 49.1. Sodium 135, potassium 4.2, chloride 94, bicarbonate 32, BUN 68, creatinine 5.2, serum glucose 180, calcium 9, total bilirubin 0.3, AST 33, ALT 40, alkaline phosphatase 203. Troponin I 0.065. BNP greater than 35,000. Lipase 496. Occult stool blood positive. SARS-CoV-2 A antigen negative. IMAGING: CT abdomen and pelvis, no definite wall thickening or obstruction. No hydronephrosis, stable. Chronic compression deformity of T12. No acute fractures identified. Moderate well-formed stool seen throughout the colon and rectum. There is small linear area of consolidation in the right middle lobe and left lower lobe. This could represent atelectasis or pneumonia. EKG: Accelerated junctional rhythm at a rate of 98, T-wave inversion more evident in anterior leads. ASSESSMENT AND PLAN: 1. This is an 85-year-old male who presents with GI bleed, . GI Bleed.Recently had NSTEMI. and was placed on plavix for 30days. He is on Coumadin, INR is 2.4. We will give him vitamin K, his hemoglobin is chronically around 9, but last at the time of discharge it was on 11, it is 9.2 today. We will follow H and H q. [address] him on IV Protonix drip. Holding Coumadin Follow daily INRs. Continue Plavix for now until seen by his cardiology.NPO, Iv fluids.close monitor. GI consult. 2. Recent Non-ST elevated myocardial infarction, on statin. His metoprolol XL was stopped as outpatient because his blood pressure was getting low. Cardiology recommended Plavix for 1 month. HE IS ALLERGIC TO ASPIRIN. We will continue his Plavix for now until further recommendation per cardiology in a.m. 3. Paroxysmal atrial fibrillation, rate is under control. Holding Coumadin. 4. History of systolic congestive heart failure, last echo EF was 30-40%, not on SAMPSON, ARB and spironolactone in light of chronic kidney disease. Toprol-XL was stopped as outpatient for hypotension. Fluid management with dialysis. 5. End-stage renal disease, on hemodialysis. Consult nephrology. 6. Hyperlipidemia, on statin. 7. Diabetes type 2, on dietary management. We will place him on insulin sliding scale while the patient is in the hospital. 8. Anemia of chronic kidney disease. We will follow the H and H. 9. History of chronic Clostridium difficile colitis, on vancomycin. 10. Deep venous thrombosis prophylaxis, sequential compression devices for now. His Coumadin is on hold. Code status, patient wants to be full code as per my discussion with the patient. MTDD
[2020-10-07] MEDS ORDERED: DIPHENOXYLATE/ATROPINE 2.5/0.025MG TAB PO PRN (04:27)
[2020-10-07] MEDS ORDERED: ACETAMINOPHEN 500 MG TAB PO PRN (04:27)
[2020-10-07] MEDS ORDERED: ONDANSETRON INJ 2 MG/ML 2 ML VIAL IV PRN (04:27)
[2020-10-07] MEDS ORDERED: MENTHOL 2% TOP PRN (04:27)
[2020-10-07] MEDS ORDERED: NITROGLYCERIN SL 0.4 MG/TAB TAB SL PRN ×2 (04:27)
[2020-10-07] MEDS ORDERED: ACETAMINOPHEN 325 MG TAB PO PRN (04:27)
[2020-10-07] MEDS ORDERED: HYDROCODONE/ACETAMOPHEN 5/325MG TAB PO PRN (04:39)
[2020-10-07] MEDS ORDERED: DOCUSATE SODIUM 100 MG CAP PO PRN (04:42)
[2020-10-07] MEDS ORDERED: GLUCOSE 40% GEL 15 GM TUBE PO PRN (05:00)
[2020-10-07] MEDS ORDERED: GLUCOSE 10 TABS/TUBE PO PRN (05:00)
[2020-10-07] MEDS ORDERED: DEXTROSE 50% 50 ML SYRINGE IV PRN (05:00)
[2020-10-07] MEDS ORDERED: CARBOHYDRATES FOR HYPOGLYCEMIA PO PRN (05:00)
[2020-10-07] MEDS ORDERED: GLUCAGON FOR INJ 1 MG VIAL SQ PRN (05:00)
[2020-10-07] MEDS ORDERED: INSULIN ASPART 100 UNITS/ML 3 ML PEN SC SCH (06:00)
[2020-10-07 06:18] LABS: Basophils # (auto) 0.04 K/uL (0-0.2); Basophils % (auto) 0.5 %; Eosinophils # (auto) 0.18 K/uL (0-0.5); Eosinophils % (auto) 2.1 %; Hemoglobin 8.6 g/dL (14.0-18.0); Immature Granulocytes # (auto) 0.12 K/uL (0.00-0.02); Immature Granulocytes % (auto) 1.4 %; Lymphocytes # (auto) 1.34 K/uL (1.2-3.4); Lymphocytes % (auto) 15.6 %; Mean Corpuscular Hemoglobin 37.4 pg (25-34); Mean Corpuscular Hgb Conc 31.9 g/dL (32-36); Mean Corpuscular Volume 117.4 fL (80-100); Mean Platelet Volume 12.5 fL (7.4-10.4); Monocytes # (auto) 0.91 K/uL (0.11-0.59); Monocytes % (auto) 10.6 %; Neutrophils # (auto) 5.98 K/uL (1.4-6.5); Neutrophils % (auto) 69.8 %; Platelet Count 148 K/uL (130-400); RDW Coefficient of Variation 16.9 % (11.5-14.5); White Blood Count 8.57 K/uL (4.8-10.8)
[2020-10-07 06:24] LABS: INR 2.2 (0.9-1.1); Prothrombin Time 22.1 Seconds (9.0-12.0)
[2020-10-07 06:45] LABS: Giant Platelets 1+; Macrocytosis Present; Rouleaux 1+
[2020-10-07] MEDS: PANTOprazole 40 MG in DEXTROSE 5% 100 ML IV SCH ×2 (06:55→10:01)
[2020-10-07 06:58] LABS: BUN Creatinine Ratio 13.1 (10-20); Calcium 8.6 mg/dl (8.5-10.1); Creatinine Clr Calc Pharmacy 10.7 ml/min; Est GFR (African American) 10.1; Est GFR (Non-African American) 8.7; Magnesium 2.5 mg/dl (1.8-2.4); Potassium 4.8 mmol/L (3.5-5.1)
[2020-10-07] MEDS ORDERED: PHYTONADIONE 2.5 MG in SODIUM CHLORIDE 0.9% 50 ML IV ONE (07:14)
[2020-10-07] MEDS: VANCOMYCIN HCL 125 MG/2.5ML SOLN PO SCH (08:29)
[2020-10-07] MEDS: RASPBERRY SYRUP 5 ML UDP PO SCH (08:29)
[2020-10-07] MEDS: VITAMIN B COMPLEX TAB PO SCH (08:29)
[2020-10-07] MEDS: FLUTICASONE PROPIONATE NA SPR 16 GM BTL SCH (08:30)
[2020-10-07] MEDS: CLOPIDOGREL BISULFATE 75 MG TAB PO SCH ×2 (08:30→10:13)
[2020-10-07] MEDS: SEVELAMER HCL 800 MG TABLET PO SCH ×3 (08:30→20:16)
[2020-10-07] MEDS: ATORVASTATIN 40 MG TAB PO SCH (08:30)
--- NOTE | 2020-10-07 09:09 | Nephrology Consultation ---
Date of Consultation October 07, 2020 Assessment & Plan (1) ESRD (end stage renal disease) on dialysis: on TRSat HD as OP and w/ chronic mild volume overload, as is in evidence today w/ elevated BNP and edema on exam -gentle HD as cardiac status and GI plans allow >> up to 1L fluid removal p lanned as bp and HR tolerate -next HD tentatively for 10/09 -no pRBC planned for now but if plan changes pls try to give on HD if possible Present on Admission?: Yes (2) Melena: GI following > for observation at this time; endoscopy deferred Present on Admission?: Yes (3) Anemia: -no heparin in HD -aggressive epo and venofer w/ HD -if pRBC, pls if possible give on tx -serial hgb per primary Present on Admission?: Yes (4) CHF (congestive heart failure): chronic mild > HD as above and f/u cardiology recs Present on Admission?: Yes (5) CAD (coronary artery disease): s/p NSTEMI last month; marked cardiac complexity -f/u cardiology recs -cont BB Present on Admission?: Yes History of Present Illness Reason for Consultation: esrd on dialysis Requesting Physician: Dr Cisneros Attending Physician: Gerard Lancaster MD History of Present Illness 85 y/o M whom I'm asked to see for dialysis needs after he was admitted this am for eval of melena. Complex PMH includes ESRD on , Sunday hemodialysis via AVF under my care at [facility], DM2, nonobstructive CAD s/p NSTEMI last month for which was kaur not a cath candidate, pAF on coumadin, atrial flutter s/p ablation, HFpEF, s/p bioprosthetic aortic valve, recurrent C. difficile on chronic Vanco, PE history of IVC filter, PMR, GERD, past right carotid endarterectomy, chronic back pain, recurrent concerns about GI bleeding. Restarted on coumadin and BB after NSTEMI last month. Pt reported 3-4 black BM in 24 hrs before admission. no n/v, no chest pain, sob, abd pain,, no constipation and no diarrhea. dialysis has been going well; no missed txs recently. Allergies Allergy/AdvReac Type Severity Reaction Status Date / Time aspirin Allergy Unknown . Verified 10/06/20 22:42 salicylates Allergy Unknown UNKNOWN Verified 10/06/20 22:42 Home Medications Medication Instructions Recorded Confirmed Type cholecalciferol (vitamin D3) 1,000 unit PO HS 06/14/18 10/06/20 History [Vitamin D3] docusate sodium 100 mg PO BID PRN 03/18/19 10/06/20 History omega 4-[id number]-[id number]-fish oil [Fish Oil] 1 cap PO DAILY 05/21/19 10/06/20 History lidocaine-prilocaine 1 applic TOPICAL 3XWK 11/13/19 10/06/20 History sevelamer carbonate [Renvela] 1,600 mg PO DAILYBD 11/13/19 10/06/20 History sevelamer carbonate [Renvela] 800 mg PO BID 11/13/19 10/06/20 History warfarin 5 mg PO UD 11/13/19 10/06/20 History Nephro-Neeraj 1 tab PO DAILY 09/07/20 10/06/20 History buprenorphine 1 patch TOPICAL WK 09/07/20 10/06/20 History diphenoxylate-atropine 1 - 2 tab PO UD PRN MDD 8 tabs 09/07/20 10/06/20 History fluticasone propionate 1 spray INTRANASAL DAILY 09/07/20 10/06/20 History menthol [Ice Blue Gel] 1 applic TOPICAL UD PRN 09/07/20 10/06/20 History ondansetron HCl 4 mg PO Q6 PRN 09/07/20 10/06/20 History vancomycin 125 mg PO DAILY 09/07/20 10/06/20 History atorvastatin 40 mg PO QAM #30 tab 09/10/20 10/06/20 Rx clopidogrel 75 mg PO DAILY #30 tab 09/10/20 10/06/20 Rx nitroglycerin 0.4 mg SUBLINGUAL ONCE PRN #25 tab 09/10/20 10/06/20 Rx acetaminophen 1,000 mg PO Q8 PRN 10/06/20 10/06/20 History hydrocodone-acetaminophen 1 tab PO Q8 PRN 10/06/20 10/06/20 History Patient History Medical History 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 Aortic valve insufficiency Atrial flutter CAD (coronary artery disease) s/p NSTEMI 09/07/20 CHF (congestive heart failure) mixed systolic + diastolic; underlying ischemic heart disease echo 09/07/20 LVEF 35-40% 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 Do not resuscitate status DVT (deep venous thrombosis) " 01/13/09 left leg " Dyslipidemia ESRD (end stage renal disease) on dialysis GERD (gastroesophageal reflux disease) Gram-positive bacteremia HTN (hypertension) Hx of amaurosis fugax "01/27/09, OD " PMR (polymyalgia rheumatica) 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 Pulmonary embolus Type 2 diabetes mellitus Surgical History H/O carotid endarterectomy "2008" H/O removal of testicle H/O superior vena cava filter placement History of hydrocelectomy History of total hip replacement S/P ablation of atrial flutter S/P aortic valve replacement "bio prosthetic" S/P cardiac cath "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" Family History Mother Hypertension Brother Stroke Social History Smoking Status: Never smoker Second Hand Exposure: No; Hx Alcohol Use: No Hx Substance Use: No Preferred Language: Romansh Communication Ability: Effective Visual Impairment: Partially Limited Immunology Teacher Required: No Beliefs That Will Affect Care: None marital status: Current Living Situation: Spouse Current Living Situation Comment: lives with Vannesa and six dogs in [place] home. How many Children do You have: 4 Other Information That Helps Us Care for You: No Feels Safe at Home: Yes Safety Concerns: Feels Safe At This Time Assistive Devices: Denture - Upper, Denture - Lower, Glasses and Walker Review of Systems Review of Systems: All systems reviewed & are unremarkable except as noted in HPI & below Physical Exam Constitutional: well developed and well nourished; no acute distress on RA Eyes: EOM intact bilaterally ENMT: Ears: no external ear abnormality Nose: no external nose abnormality Mouth: + dry oral mucous membranes Neck: no nuchal rigidity Respiratory: normal respiratory effort Auscultation: + diminished lung sounds; no crackles (bibasilar) Cardiovascular: Rate/Rhythm: + irregularly irregular Extremities: + edema (1++ indurated BLE) and + AV fistula (+t/b) Gastrointestinal (Abdomen): Inspection/Auscultation: normal bowel sounds Percussion/Palpation: abdomen soft; abdomen nontender Musculoskeletal: Extremities: strength 5/5 throughout Skin: no rashes, warm and dry Neurologic: uribe, fluent speech, no tremor Psychiatric: A+Ox3, euthymic affect Speech: normal rate/rhythm/volume of speech some limitations to history, medication regimen >> his MS is at baseline Results & Data ([facility]) Vital Signs (Past 12 Hours) Vital Signs Temp Pulse Pulse Resp BP BP Pulse Ox 10/07/20 08:24 92 H 17 116/73 98 10/07/20 08:15 92 H 10/07/20 07:52 93 H 17 128/75 96 10/07/20 07:11 36.4 C L 76 18 125/72 97 10/07/20 05:42 76 16 99/56 L 97 10/07/20 05:00 75 17 105/57 L 97 10/07/20 04:42 82 20 134/60 99 10/07/20 04:00 73 15 108/59 L 97 10/07/20 03:31 77 19 123/61 98 10/07/20 03:00 69 16 102/57 L 98 10/07/20 02:30 74 17 115/64 99 10/07/20 02:00 83 14 103/58 L 99 10/07/20 01:30 87 18 118/67 95 10/07/20 01:17 93 H 21 129/74 100 10/07/20 01:16 94 H 20 129/74 99 10/07/20 00:30 76 18 107/65 98 10/07/20 00:00 88 31 H 119/67 98 10/06/20 23:30 80 31 H 118/64 99 10/06/20 23:00 77 27 H 106/60 97 10/06/20 22:30 81 24 107/71 97 10/06/20 22:00 84 21 111/62 97 10/06/20 21:30 87 33 H 118/66 99 Laboratory Results 10/07/20 11:31 10/07/20 05:[address] abd/pelvis non con FINDINGS: Small linear areas consolidation seen within the right middle lobe and left lower lobe. These are new from the prior study and could represent atelectasis or a pneumonia. Scattered micronodules and mild interstitial t hickening persists. This suggests a chronic process and could be due to sarcoidosis. There are poststernotomy changes. An aortic valve prosthesis is again noted. Dense coronary artery calcifications are present. Moderate T12 old compression deformity remains unchanged. Moderate to severe degenerative disc disease seen throughout the lumbar spine. No pneumoperitoneum. No pneumatosis. A right hip prosthesis is again noted. Right-sided gynecomastia. Chronic atrophy of the right psoas muscle. Multiple tiny gallstones. No gallbladder wall thickening. The unenhanced liver, spleen, adrenal glands, and pancreas are within normal limits. Extensive calcified plaque within the normal caliber aorta and iliac vessels. There is also extensive atherosclerotic plaque throughout the mesenteric and renal arteries. An IVC filter is unchanged in position. Chronic calcification within the posterior IVC, unchanged. This is consistent with chronic thrombus. Mild infiltration of the central mesenteric fat, unchanged. This is likely chronic. No hydronephrosis. The bladder is decompressed but appears unremarkable. Prostate gland is normal in size. Stable left renal hypodense lesion which likely represents a cyst. No retroperitoneal hematoma. Suboptimal evaluation for bowel pathology due to the lack of intravenous and oral contrast. However, there is no definite bowel wall thickening or obstruction. Moderate rectal stool ball is noted. Colonic diverticulosis. No evidence for acute diverticulitis. Moderate well-formed stool seen within the majority of the colon. Normal appendix. IMPRESSION: 1. No definite bowel wall thickening or obstruction. 2. No hydronephrosis. 3. Stable chronic compression deformity at T12. No acute fractures identified. 4. Moderate well-formed stool seen throughout the colon and rectum. 5. There are small linear areas consolidation within the right middle lobe and left lower lobe. This could represent atelectasis or pneumonia. 6. Additional stable chronic changes as described above.
--- NOTE | 2020-10-07 09:31 | Cardiology Consultation ---
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 INR was therapeutic at 2.4 and he was given vitamin K for reversal. Very complex cardiac history including recent non-ST segment elevation MT treated medically, patient reported unable to tolerate aspirin, has been on Plavix. Multiple indications for Coumadin including paroxysmal atrial fibrillation and history of life-threatening pulmonary embolism. Currently the patient is in atrial fibrillation Hemoglobin is not significantly off compared to baseline. Given the lack of cardiac symptoms no indication to transfuse at this time. Recommend continuing Plavix given the recent non-ST segment elevation MT. Given the fact the patient is in atrial fibrillation anticoagulation would be indicated from a cardiac standpoint No need for telemetry monitoring at this time History of Present Illness Reason for Consultation: cad Requesting Physician: Dr. Mercer Attending Physician: Gerard Lancaster MD History of Present Illness Mr. Davey is a very medically complex 85-year-old gentleman who presented to [facility] on 10/06/2020 with complaints of dark tarry stools. The patient states he has been feeling fine lately actually better than he has in a while. He has been noticing some very black dark tarry stools as of late and his home health nurse recommended coming emergency department. Upon arrival his INR was elevated and he was guaiac positive. His INR was reversed with vitamin K and he has been admitted to the ER holding. Currently states he feels well denies any chest pain, shortness of breath, palpitations, lightheadedness, dizziness or syncope. Past medical history: (1) paroxysmal atrial fibrillation -in sinus rhythm on most recent EKG as noted above (2) History of recurrent atrial flutter for which patient underwent tricuspid isthmus ablation in July 2016 (3)Status post bioprosthetic aortic valve replacement, 04/22/2012 with a 23 millimeter Kristie-Barraza pericardial valve with surgery having been performed for severe symptomatic aortic valve stenosis Nonobstructive CAD on preoperative cardiac catheterization (4)End-stage renal disease on hemodialysis (5)History of past life-threatening pulmonary embolism for which she is pre scribed chronic Coumadin anticoagulation (6)Status post right carotid endarterectomy 2008, less than 50% bilateral carotid stenosis duplex 2017 (7) recent non-ST segment elevation MT treated medically Allergies Allergy/AdvReac Type Severity Reaction Status Date / Time aspirin Allergy Unknown . Verified 10/06/20 22:42 salicylates Allergy Unknown UNKNOWN Verified 10/06/20 22:42 Home Medications Medication Instructions Recorded Confirmed Type cholecalciferol (vitamin D3) 1,000 unit PO HS 06/14/18 10/06/20 History [Vitamin D3] docusate sodium 100 mg PO BID PRN 03/18/19 10/06/20 History omega 6-znm-mml-fish oil [Fish Oil] 1 cap PO DAILY 05/21/19 10/06/20 History lidocaine-prilocaine 1 applic TOPICAL 3XWK 11/13/19 10/06/20 History sevelamer carbonate [Renvela] 1,600 mg PO DAILYBD 11/13/19 10/06/20 History sevelamer carbonate [Renvela] 800 mg PO BID 11/13/19 10/06/20 History warfarin 5 mg PO UD 11/13/19 10/06/20 History Nephro-Neeraj 1 tab PO DAILY 09/07/20 10/06/20 History buprenorphine 1 patch TOPICAL WK 09/07/20 10/06/20 History diphenoxylate-atropine 1 - 2 tab PO UD PRN MDD 8 tabs 09/07/20 10/06/20 History fluticasone propionate 1 spray INTRANASAL DAILY 09/07/20 10/06/20 History menthol [Ice Blue Gel] 1 applic TOPICAL UD PRN 09/07/20 10/06/20 History ondansetron HCl 4 mg PO Q6 PRN 09/07/20 10/06/20 History vancomycin 125 mg PO DAILY 09/07/20 10/06/20 History atorvastatin 40 mg PO QAM #30 tab 09/10/20 10/06/20 Rx clopidogrel 75 mg PO DAILY #30 tab 09/10/20 10/06/20 Rx nitroglycerin 0.4 mg SUBLINGUAL ONCE PRN #25 tab 09/10/20 10/06/20 Rx acetaminophen 1,000 mg PO Q8 PRN 10/06/20 10/06/20 History hydrocodone-acetaminophen 1 tab PO Q8 PRN 10/06/20 10/06/20 History Patient History Medical History 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 Aortic valve insufficiency Atrial flutter CAD (coronary artery disease) s/p NSTEMI 09/07/20 CHF (congestive heart failure) mixed systolic + diastolic; underlying ischemic heart disease echo 09/07/20 LVEF 35-40% 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 Do not resuscitate status DVT (deep venous thrombosis) " 01/13/09 left leg " Dyslipidemia ESRD (end stage renal disease) on dialysis GERD (gastroesophageal reflux disease) Gram-positive bacteremia HTN (hypertension) Hx of amaurosis fugax "01/27/09, OD " PMR (polymyalgia rheumatica) 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 Pulmonary embolus Type 2 diabetes mellitus Surgical History H/O carotid endarterectomy "2008" H/O removal of testicle H/O superior vena cava filter placement History of hydrocelectomy History of total hip replacement S/P ablation of atrial flutter S/P aortic valve replacement "bio prosthetic" S/P cardiac cath "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" Family History Mother Hypertension Brother Stroke Social History Smoking Status: Never smoker Second Hand Exposure: No; Hx Alcohol Use: No Hx Substance Use: No Preferred Language: Thai Communication Ability: Effective Visual Impairment: Partially Limited [employer] Required: No Beliefs That Will Affect Care: None marital status: Current Living Situation: Spouse Current Living Situation Comment: lives with Vannesa and six dogs in [place]. How many Children do You have: 4 Other Information That Helps Us Care for You: No Feels Safe at Home: Yes Safety Concerns: Feels Safe At This Time Assistive Devices: Denture - Upper, Denture - Lower, Glasses and Walker Review of Systems Review of Systems: All systems reviewed & are unremarkable except as noted in HPI & below Physical Exam Physical Exam: General: Awake, alert and oriented x 3. No acute distress. HEENT: Normocephalic, atraumatic. Pupils equal, round and reactive to light and accommodation. Extraocular muscles are intact. Anicteric sclera. Moist mucous membranes. Neck: No JVD. No bruit. Cardiovascular: irregularly irregular, unable to appreciate murmur, rub or gallop. Pulmonary: Clear to auscultation bilaterally. No rales, rhonchi, or wheezing. Abdomen: Bowel sounds x 4, soft. No rebound, guarding or tenderness. No organomegaly. Extremities: No clubbing, cyanosis or edema. +2 pedal pulses bilaterally. Skin: Warm and dry. Results & Data ([facility]) Vital Signs (Past 12 Hours) Vital Signs Temp Pulse Pulse Resp BP BP Pulse Ox 10/07/20 08:24 92 H 17 116/73 98 10/07/20 08:15 92 H 10/07/20 07:52 93 H 17 128/75 96 10/07/20 07:11 36.4 C L 76 18 125/72 97 10/07/20 05:42 76 16 99/56 L 97 10/07/20 05:00 75 17 105/57 L 97 10/07/20 04:42 82 20 134/60 99 10/07/20 04:00 73 15 108/59 L 97 10/07/20 03:31 77 19 123/61 98 10/07/20 03:00 69 16 102/57 L 98 10/07/20 02:30 74 17 115/64 99 10/07/20 02:00 83 14 103/58 L 99 10/07/20 01:30 87 18 118/67 95 10/07/20 01:17 93 H 21 129/74 100 10/07/20 01:16 94 H 20 129/74 99 10/07/20 00:30 76 18 107/65 98 10/07/20 00:00 88 31 H 119/67 98 10/06/20 23:30 80 31 H 118/64 99 10/06/20 23:00 77 27 H 106/60 97 10/06/20 22:30 81 24 107/71 97 10/06/20 22:00 84 21 111/62 97 Laboratory Results Laboratory Results - last 24 hr 10/06/20 10/06/20 10/06/20 19:37 19:54 19:54 WBC RBC Hgb Hct MCV MCH MCHC RDW Std Deviation RDW Coeff of Elvia Plt Count MPV Immature Gran % (Auto) Neut % (Auto) Lymph % (Auto) [place] % (Auto) Eos % (Auto) Baso % (Auto) Neut # (Auto) Lymph # (Auto) [place] # (Auto) Eos # (Auto) Baso # (Auto) Immature Gran # (Auto) Giant Platelets Macrocytosis Rouleaux PT INR APTT PTT Ratio Sodium 135 L Potassium 4.2 Chloride 94 L Carbon Dioxide 32 Anion Gap 9.0 BUN 68 H Creatinine 5.22 H* Est Cr Clr Drug Dosing 11.3 Est GFR ( Amer) 10.7 Est GFR (Non-Af Amer) 9.3 BUN/Creatinine Ratio 13.0 Glucose 180 H POC Glucose Calcium 9.0 Magnesium Total Bilirubin 0.3 AST 33 ALT 40 Alkaline Phosphatase 203 H Troponin I 0.065 H* NT-Pro-B Natriuret Pep > 08882 H Total Protein 8.6 H Albumin 2.9 L Globulin 5.7 H Albumin/Globulin Ratio 0.5 L Lipase 496 H Specimen Hemolysis POC Stool Occult Blood Positive A SARS-CoV-2 Ag (Rapid) Blood Type B Positive Antibody Screen NEGATIVE 10/06/20 10/06/20 10/06/20 19:54 19:54 22:12 WBC 9.36 RBC 2.45 L Hgb 9.2 L Hct 29.0 L MCV 118.4 H MCH 37.6 H MCHC 31.7 L RDW Std Deviation 71.6 H RDW Coeff of Elvia 17.0 H Plt Count 155 MPV 12.3 H Immature Gran % (Auto) 1.4 Neut % (Auto) 70.7 Lymph % (Auto) 15.2 [place] % (Auto) 10.4 Eos % (Auto) 1.9 Baso % (Auto) 0.4 Neut # (Auto) 6.62 H Lymph # (Auto) 1.42 [place] # (Auto) 0.97 H Eos # (Auto) 0.18 Baso # (Auto) 0.04 Immature Gran # (Auto) 0.13 H Giant Platelets Macrocytosis Present Rouleaux PT 24.0 H INR 2.4 H APTT 49.1 H* PTT Ratio 1.8 Sodium Potassium Chloride Carbon Dioxide Anion Gap BUN Creatinine Est Cr Clr Drug Dosing Est GFR ( Amer) Est GFR (Non-Af Amer) BUN/Creatinine Ratio Glucose POC Glucose Calcium Magnesium Total Bilirubin AST ALT Alkaline Phosphatase Troponin I NT-Pro-B Natriuret Pep Total Protein Albumin Globulin Albumin/Globulin Ratio Lipase Specimen Hemolysis POC Stool Occult Blood SARS-CoV-2 Ag (Rapid) Negative Blood Type Antibody Screen 10/07/20 10/07/20 10/07/20 05:38 05:49 05:49 WBC 8.57 RBC 2.30 L Hgb 8.6 L Hct 27.0 L MCV 117.4 H MCH 37.4 H MCHC 31.9 L RDW Std Deviation 71.0 H RDW Coeff of Elvia 16.9 H Plt Count 148 MPV 12.5 H Immature Gran % (Auto) 1.4 Neut % (Auto) 69.8 Lymph % (Auto) 15.6 [place] % (Auto) 10.6 Eos % (Auto) 2.1 Baso % (Auto) 0.5 Neut # (Auto) 5.98 Lymph # (Auto) 1.34 [place] # (Auto) 0.91 H Eos # (Auto) 0.18 Baso # (Auto) 0.04 Immature Gran # (Auto) 0.12 H Giant Platelets 1+ Macrocytosis Present Rouleaux 1+ PT INR APTT PTT Ratio Sodium 134 L Potassium 4.8 Chloride 96 L Carbon Dioxide 29 Anion Gap 9.0 BUN 72 H Creatinine 5.50 H* Est Cr Clr Drug Dosing 10.7 Est GFR ( Amer) 10.1 Est GFR (Non-Af Amer) 8.7 BUN/Creatinine Ratio 13.1 Glucose 153 H POC Glucose 162 H Calcium 8.6 Magnesium 2.5 H Total Bilirubin AST ALT Alkaline Phosphatase Troponin I NT-Pro-B Natriuret Pep Total Protein Albumin Globulin Albumin/Globulin Ratio Lipase Specimen Hemolysis POC Stool Occult Blood SARS-CoV-2 Ag (Rapid) Blood Type Antibody Screen 10/07/20 10/07/20 05:49 08:07 WBC RBC Hgb Hct MCV MCH MCHC RDW Std Deviation RDW Coeff of Elvia Plt Count MPV Immature Gran % (Auto) Neut % (Auto) Lymph % (Auto) [place] % (Auto) Eos % (Auto) Baso % (Auto) Neut # (Auto) Lymph # (Auto) [place] # (Auto) Eos # (Auto) Baso # (Auto) Immature Gran # (Auto) Giant Platelets Macrocytosis Rouleaux PT 22.1 H INR 2.2 H APTT PTT Ratio Sodium Potassium Chloride Carbon Dioxide Anion Gap BUN Creatinine Est Cr Clr Drug Dosing Est GFR ( Amer) Est GFR (Non-Af Amer) BUN/Creatinine Ratio Glucose POC Glucose 157 H Calcium Magnesium Total Bilirubin AST ALT Alkaline Phosphatase Troponin I NT-Pro-B Natriuret Pep Total Protein Albumin Globulin Albumin/Globulin Ratio Lipase Specimen Hemolysis POC Stool Occult Blood SARS-CoV-2 Ag (Rapid) Blood Type Antibody Screen Medications Administered Current Inpatient Medications Acetaminophen (Acetaminophen 325 Mg Tab) 650 mg PO Q4H PRN PRN Reason: Pain or Fever Stop: 11/06/20 04:26 Acetaminophen (Acetaminophen 500 Mg Tab) 1,000 mg PO Q8 PRN PRN Reason: Pain Stop: 11/06/20 04:26 Hydrocodone Bitart/Acetaminophen (Hydrocodone/Acetamophen 5/325mg Tab) 1 tab PO Q8 PRN PRN Reason: Pain Stop: 10/21/20 04:38 Atorvastatin Calcium (Atorvastatin 40 Mg Tab) 40 mg PO QAM JAMES Stop: 11/06/20 08:59 Last Admin: 10/07/20 08:30 Dose: 40 mg Documented by: Clopidogrel Bisulfate (Clopidogrel Bisulfate 75 Mg Tab) 75 mg PO DAILY JAMES Stop: 11/06/20 08:59 Last Admin: 10/07/20 10:13 Dose: 75 mg Documented by: Dextrose (Dextrose 50% 50 Ml Syringe) 25 - 50 ml IV UD PRN; Protocol PRN Reason: Hypoglycemia Protocol Stop: 11/06/20 04:59 Diphenoxylate HCl/Atropine (Diphenoxylate/Atropine 2.5/0.025mg Tab) 1 - 2 tab PO UD PRN PRN Reason: Diarrhea Stop: 11/06/20 04:26 Docusate Sodium (Docusate Sodium 100 Mg Cap) 100 mg PO BID PRN PRN Reason: Constipation Stop: 11/06/20 04:41 Fluticasone Propionate (Fluticasone Propionate Na Spr 16 Gm Btl) 1 sprays NA DAILY JAMES Stop: 11/06/20 08:59 Last Admin: 10/07/20 08:30 Dose: Not Given Documented by: Glucagon (Glucagon For Inj 1 Mg Vial) 1 mg SQ UD PRN; Protocol PRN Reason: Hypoglycemia Protocol Stop: 11/06/20 04:59 Glucose (Glucose 40% Gel 15 Gm Tube) 15 - 30 gm PO UD PRN; Protocol PRN Reason: Hypoglycemia Protocol Stop: 11/06/20 04:59 Glucose (Glucose 10 Tabs/Tube) 4 - 8 tabs PO UD PRN; Protocol PRN Reason: Hypoglycemia Protocol Stop: 11/06/20 04:59 Pantoprazole Sodium 40 mg/ (Dextrose) 100 mls @ 20 mls/hr IV Q5H [facility] Stop: 11/06/20 04:59 Last Admin: 10/07/20 10:01 Dose: 8 mg/hr, 20 mls/hr Documented by: Insulin Aspart (Insulin Aspart 100 Units/Ml 3 Ml Pen) 0 units SC ACHS [facility] Stop: 11/06/20 05:59 Lidocaine/Prilocaine (Lidocaine/Prilocaine 2.5% Ea Crm) 1 ea EXT [id number] [facility] Stop: 11/07/20 08:59 Miscellaneous (Butrans~Order Awaiting Action) 1 ea N/A QS [facility] Stop: 11/06/20 07:59 Last Admin: 10/07/20 08:28 Dose: Not Given Documented by: Miscellaneous (Carbohydrates For Hypoglycemia ) 15 - 30 gm PO UD PRN PRN Reason: Hypoglycemia Treatment Stop: 11/06/20 04:59 Nitroglycerin (Nitroglycerin Sl 0.4 Mg/Tab Tab) 0.4 mg SL UD PRN PRN Reason: Chest Pain Stop: 11/06/20 04:26 Ondansetron HCl (Ondansetron Inj 2 Mg/Ml 2 Ml Vial) 4 mg IV Q6H PRN PRN Reason: Nausea Stop: 11/06/20 04:26 Raspberry (Raspberry Syrup 5 Ml Udp) 5 ml PO QAM [facility] Stop: 10/21/20 08:59 Last Admin: 10/07/20 08:29 Dose: 5 ml Documented by: Sevelamer HCl (Sevelamer Hcl 800 Mg Tablet) 800 mg PO BID JAMES Stop: 11/06/20 08:59 Last Admin: 10/07/20 08:30 Dose: 800 mg Documented by: Sevelamer HCl (Sevelamer Hcl 800 Mg Tablet) 1,600 mg PO DAILYBD JAMES Stop: 11/06/20 15:29 Vancomycin HCl (Vancomycin Hcl 125 Mg/2.5ml Soln) 125 mg PO DAILY JAMES Stop: 10/17/20 08:59 Last Admin: 10/07/20 08:29 Dose: 125 mg Documented by: Vitamin B Complex (Vitamin B Complex Tab) 1 tab PO DAILY JAMES Stop: 11/06/20 08:59 Last Admin: 10/07/20 08:29 Dose: 1 tab Documented by: Vitamin D (Cholecalciferol 1,000 Units 25 Mcg Tab) 1,000 units PO HS JAMES Stop: 11/06/20 20:59
[2020-10-07] MEDS ORDERED: Nursing to Pharmacy Communication SCH (10:15)
[2020-10-07 11:52] LABS: Hematocrit (blood only) 24.5 % (42-52); Hemoglobin 7.8 g/dL (14.0-18.0)
[2020-10-07] MEDS: INSULIN ASPART 100 UNITS/ML 3 ML PEN SC SCH ×2 (11:53→20:27)
--- NOTE | 2020-10-07 12:11 | Gastrointestinal Consultation ---
Date of Consultation October 07, 2020 Assessment & Plan (1) GI bleed: Pt is a 85 y/o male seen for bloody stools yesterday. Hx of ESRD on HD, Hx of Afib, aortic valve replacement on Coumadin, hx of PE s/p IVF placement. Blood ct at baseline and INR was 2.2. NO further GI bleeding since admitted overnight. Benign abdominal exam w/o distension, abd pain. - Monitor blood ct - Defer endoscopic evaluation at this time. - May switch PPI gtt to Protonix IV BID - Will follow along Supervising Physician Co-Signing Physician Notes I have seen and examined the patient and discussed the management with TROY Avalos. 85 yo male with pmhx as listed in Pat's note, now with concerns for black stools. Hgb stable essentially. On coumadin- INR 2.6. Would hold coumadin, empirically npo after midnite. Agree with further plan of care as Pat's assessment and plan. History of Present Illness Reason for Consultation: GI bleeding Requesting Physician: Dr. Gerard Lancaster Attending Physician: Dr. Katlyn Cortes History of Present Illness Pt is a 85 y/o male w PMHx of ESRD on HD (Tue, Gillian, Sat), DM II, CAD, Afib on Coumadin, CHF, Aortic valve replacement hx of recurrent Cdiff, PE s/p IVC f ilter, recent NSTEMI who was admitted overnight w symptoms of black stools yesterday. He denies any associated light headedness, dizziness, CP, SOB, abd pain, n/v. Hemoccult was positive in ER. Overnight denies any more BMs. His blood ct is at baseline, INR 2.2. Non contrasted CT abd/pelvis w/o acute obstructive/inflammatory findings. Allergies Allergy/AdvReac Type Severity Reaction Status Date / Time aspirin Allergy Unknown . Verified 10/06/20 22:42 salicylates Allergy Unknown UNKNOWN Verified 10/06/20 22:42 Home Medications Medication Instructions Recorded Confirmed Type cholecalciferol (vitamin D3) 1,000 unit PO HS 06/14/18 10/06/20 History [Vitamin D3] docusate sodium 100 mg PO BID PRN 03/18/19 10/06/20 History omega 5-szm-lcm-fish oil [Fish Oil] 1 cap PO DAILY 05/21/19 10/06/20 History lidocaine-prilocaine 1 applic TOPICAL 3XWK 11/13/19 10/06/20 History sevelamer carbonate [Renvela] 1,600 mg PO DAILYBD 11/13/19 10/06/20 History sevelamer carbonate [Renvela] 800 mg PO BID 11/13/19 10/06/20 History warfarin 5 mg PO UD 11/13/19 10/06/20 History Nephro-Neeraj 1 tab PO DAILY 09/07/20 10/06/20 History buprenorphine 1 patch TOPICAL WK 09/07/20 10/06/20 History diphenoxylate-atropine 1 - 2 tab PO UD PRN MDD 8 tabs 09/07/20 10/06/20 History fluticasone propionate 1 spray INTRANASAL DAILY 09/07/20 10/06/20 History menthol [Ice Blue Gel] 1 applic TOPICAL UD PRN 09/07/20 10/06/20 History ondansetron HCl 4 mg PO Q6 PRN 09/07/20 10/06/20 History vancomycin 125 mg PO DAILY 09/07/20 10/06/20 History atorvastatin 40 mg PO QAM #30 tab 09/10/20 10/06/20 Rx clopidogrel 75 mg PO DAILY #30 tab 09/10/20 10/06/20 Rx nitroglycerin 0.4 mg SUBLINGUAL ONCE PRN #25 tab 09/10/20 10/06/20 Rx acetaminophen 1,000 mg PO Q8 PRN 10/06/20 10/06/20 History hydrocodone-acetaminophen 1 tab PO Q8 PRN 10/06/20 10/06/20 History Patient History Medical History 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 Aortic valve insufficiency Atrial flutter CAD (coronary artery disease) s/p NSTEMI 09/07/20 CHF (congestive heart failure) mixed systolic + diastolic; underlying ischemic heart disease echo 09/07/20 LVEF 35-40% 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 Do not resuscitate status DVT (deep venous thrombosis) " 01/13/09 left leg " Dyslipidemia ESRD (end stage renal disease) on dialysis GERD (gastroesophageal reflux disease) Gram-positive bacteremia HTN (hypertension) Hx of amaurosis fugax "01/27/09, OD " PMR (polymyalgia rheumatica) 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 Pulmonary embolus Type 2 diabetes mellitus Surgical History H/O carotid endarterectomy "2008" H/O removal of testicle H/O superior vena cava filter placement History of hydrocelectomy History of total hip replacement S/P ablation of atrial flutter S/P aortic valve replacement "bio prosthetic" S/P cardiac cath "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" Family History Mother Hypertension Brother Stroke Social History Smoking Status: Never smoker Second Hand Exposure: No; Hx Alcohol Use: No Hx Substance Use: No Preferred Language: Azerbaijani Communication Ability: Effective Visual Impairment: Partially Limited Warehouse Supervisor Required: No Beliefs That Will Affect Care: None marital status: Current Living Situation: Spouse Current Living Situation Comment: lives with Vannesa and six dogs in [place] home. How many Children do You have: 4 Other Information That Helps Us Care for You: No Feels Safe at Home: Yes Safety Concerns: Feels Safe At This Time Assistive Devices: Denture - Upper, Denture - Lower, Glasses and Walker Review of Systems Review of Systems: All systems reviewed & are unremarkable except as noted in HPI & below Physical Exam Constitutional: WD/WN, vitals as above well groomed, cooperative and comfortable Eyes: PERRL, conjunctivae normal, anicteric sclerae ENMT: external ear and nose normal, oropharynx normal Respiratory: normal respiratory effort, lungs clear to auscultation Cardiovascular: RRR, no murmur, no edema Gastrointestinal (Abdomen): normal bowel sounds, soft, nontender, no hepatosplenomegaly Skin: no rashes, warm and dry no jaundice Psychiatric: A+Ox3, euthymic affect Lymphatic: no lymphedema Results & Data ([facility]) Vital Signs (Past 12 Hours) Vital Signs Temp Pulse Pulse Resp BP BP Pulse Ox 10/07/20 08:24 92 H 17 116/73 98 10/07/20 08:15 92 H 10/07/20 07:52 93 H 17 128/75 96 10/07/20 07:11 36.4 C L 76 18 125/72 97 10/07/20 05:42 76 16 99/56 L 97 10/07/20 05:00 75 17 105/57 L 97 10/07/20 04:42 82 20 134/60 99 10/07/20 04:00 73 15 108/59 L 97 10/07/20 03:31 77 19 123/61 98 10/07/20 03:00 69 16 102/57 L 98 10/07/20 02:30 74 17 115/64 99 10/07/20 02:00 83 14 103/58 L 99 10/07/20 01:30 87 18 118/67 95 10/07/20 01:17 93 H 21 129/74 100 10/07/20 01:16 94 H 20 129/74 99 10/07/20 00:30 76 18 107/65 98 (1) GI bleed GI bleed type/associated pathology: unspecified gastrointestinal hemorrhage type Qualified Code(s): K92.2 - Gastrointestinal hemorrhage, unspecified
[2020-10-07] MEDS ORDERED: SODIUM CHLORIDE 0.9% 1000ML 1,000 ML IV PRN (14:14)
[2020-10-07] MEDS ORDERED: EPOETIN ALFA 20,000 UNITS/ML VIAL IV ONE (14:14)
[2020-10-07] MEDS ORDERED: EPOETIN ALFA 24,000 UNITS in SYRINGE 0 ML IV ONE (14:45)
[2020-10-07] MEDS ORDERED: IRON SUCROSE 100 MG in SYRINGE 0 ML IV ONE (15:00)
[2020-10-07] MEDS ORDERED: PHYTONADIONE 5 MG in SODIUM CHLORIDE 0.9% 50 ML IV ONE (15:16)
[2020-10-07] MEDS: PANTOprazole 40 MG in SYRINGE 0 ML IV SCH (20:15)
[2020-10-07] MEDS: CHOLECALCIFEROL 1,000 UNITS 25 MCG TAB PO SCH (20:16)
[2020-10-07 20:17] LABS: Hematocrit (blood only) 25.9 % (42-52); Hemoglobin 8.3 g/dL (14.0-18.0)
[2020-10-07 20:31] LABS: INR 1.5 (0.9-1.1); Prothrombin Time 15.7 Seconds (9.0-12.0)
[2020-10-07 21:04] LABS: Hepatitis B Surface Ab Quant < 3.10 mIU/mL (>or=10mIU/mL Immune); Hepatitis B Surface Antibody Non-Immune
[2020-10-07 21:15] LABS: Hepatitis B Surface Antigen Neg (Neg)
[2020-10-08] MEDS: INSULIN ASPART 100 UNITS/ML 3 ML PEN SC SCH ×5 (00:15→20:39)
--- NOTE | 2020-10-08 06:11 | Electrocardiogram Report ---
Test Reason : Blood Pressure : / mmHG Vent. Rate : 098 BPM Atrial Rate : 097 BPM P-R Int : 000 ms QRS Dur : 088 ms QT Int : 384 ms P-R-T Axes : 000 -51 112 degrees QTc Int : 490 ms Probable Sinus rhythm Left axis deviation T wave abnormality, consider anterior ischemia Prolonged QT Abnormal ECG When compared with ECG of 09-SEP-2020 06:32, T wave inversion more evident in Anterior leads Confirmed by Adelfo Marsh ([id number]) on 10/08/2020 6:11:43 AM Referred By: REFERRED SELF Confirmed By:Adelfo Marsh
[2020-10-08 07:48] LABS: Basophils # (auto) 0.08 K/uL (0-0.2); Eosinophils # (auto) 0.14 K/uL (0-0.5); Eosinophils % (auto) 1.8 %; Hematocrit (blood only) 26.6 % (42-52); Hemoglobin 8.3 g/dL (14.0-18.0); Immature Granulocytes # (auto) 0.15 K/uL (0.00-0.02); Immature Granulocytes % (auto) 1.9 %; Lymphocytes # (auto) 1.45 K/uL (1.2-3.4); Lymphocytes % (auto) 18.5 %; Mean Corpuscular Hemoglobin 37.1 pg (25-34); Mean Corpuscular Hgb Conc 31.2 g/dL (32-36); Mean Corpuscular Volume 118.8 fL (80-100); Mean Platelet Volume 11.8 fL (7.4-10.4); Monocytes # (auto) 1.01 K/uL (0.11-0.59); Monocytes % (auto) 12.9 %; Neutrophils % (auto) 63.9 %; Platelet Count 151 K/uL (130-400); RDW Coefficient of Variation 17.3 % (11.5-14.5); RDW Standard Deviation 72.6 fL (36.4-46.3); Red Blood Count 2.24 M/uL (4.7-6.1); White Blood Count 7.83 K/uL (4.8-10.8)
[2020-10-08 07:58] LABS: INR 1.4 (0.9-1.1); Prothrombin Time 14.1 Seconds (9.0-12.0)
[2020-10-08 08:25] LABS: Calcium 8.9 mg/dl (8.5-10.1); Creatinine Clr Calc Pharmacy 14.8 ml/min; Est GFR (African American) 15.3; Est GFR (Non-African American) 13.2; Potassium 4.4 mmol/L (3.5-5.1)
[2020-10-08 08:27] LABS: Macrocytosis Present
[2020-10-08] MEDS: PANTOprazole 40 MG in SYRINGE 0 ML IV SCH ×2 (08:36→20:38)
[2020-10-08] MEDS: FLUTICASONE PROPIONATE NA SPR 16 GM BTL SCH (08:36)
[2020-10-08] MEDS ORDERED: LIDOCAINE/PRILOCAINE 2.5% EA CRM EXT SCH (09:00)
[2020-10-08] MEDS: VITAMIN B COMPLEX TAB PO SCH (09:39)
[2020-10-08] MEDS: SEVELAMER HCL 800 MG TABLET PO SCH ×3 (09:40→20:40)
[2020-10-08] MEDS: RASPBERRY SYRUP 5 ML UDP PO SCH (09:40)
[2020-10-08] MEDS: VANCOMYCIN HCL 125 MG/2.5ML SOLN PO SCH (09:40)
[2020-10-08] MEDS: ATORVASTATIN 40 MG TAB PO SCH (09:40)
[2020-10-08] MEDS ORDERED: Nursing to Pharmacy Communication SCH (10:00)
--- NOTE | 2020-10-08 10:09 | Cardiology Progress Note ---
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 INR was therapeutic at 2.4 and he was given vitamin K for reversal. Very complex cardiac history including recent non-ST segment elevation RI treated medically, patient reported unable to tolerate aspirin, has been on Plavix. Multiple indications for Coumadin including paroxysmal atrial fibrillation and history of life-threatening pulmonary embolism. Currently the patient is in atrial fibrillation Hemoglobin is not significantly off compared to baseline. Given the lack of cardiac symptoms no indication to transfuse at this time. Recommend continuing Plavix given the recent non-ST segment elevation RI. Given the fact the patient is in atrial fibrillation anticoagulation would be indicated from a cardiac standpoint but would be reasonable to hold for 1 week and follow for further blood loss prior to reinitiation. No need for telemetry monitoring at this time Admission and Anticipated Discharge Date Admission Date: October 07, 2020 Subjective Patient seen and examined, chart reviewed. States he feels great. Denies any chest pain, shortness of breath, palpitations, lightheadedness, dizziness or syncope. He is anxious to eat breakfast. Telemetry reviewed: Atrial fibrillation rate controlled Review of Systems Review of Systems: All systems reviewed & are unremarkable except as noted in HPI & below Physical Exam Physical Exam: General: Awake, alert and oriented x 3. No acute distress. HEENT: Normocephalic, atraumatic. Pupils equal, round and reactive to light and accommodation. Extraocular muscles are intact. Anicteric sclera. Moist mucous membranes. Neck: No JVD. No bruit. Cardiovascular: irregularly irregular, unable to appreciate murmur, rub or gallop. Pulmonary: Clear to auscultation bilaterally. No rales, rhonchi, or wheezing. Abdomen: Bowel sounds x 4, soft. No rebound, guarding or tenderness. No organomegaly. Extremities: No clubbing, cyanosis or edema. +2 pedal pulses bilaterally. Skin: Warm and dry. Results & Data ([facility]) Vital Signs (Past 12 Hours) Vital Signs Temp Pulse Pulse Resp BP Pulse Ox 10/08/20 08:13 36.4 C L 91 H 18 123/60 96 10/08/20 07:40 88 10/08/20 03:33 36.6 C 96 H 18 116/66 97 10/08/20 00:39 108 H 10/07/20 23:35 36.7 C 95 H 17 112/68 96
[2020-10-08] MEDS ORDERED: CLOPIDOGREL BISULFATE 75 MG TAB PO ONE (10:15)
--- NOTE | 2020-10-08 11:32 | Gastroenterology Progress Note ---
Date of Service October 08, 2020 Assessment & Plan (1) GI bleed: Pt is a 85 y/o male seen for bloody stools 2 days ago. Hx of ESRD on HD, Hx of Afib, aortic valve replacement on Coumadin, hx of PE s/p IVF placement. Blood ct at baseline and INR was 2.2. Last colonoscopy 2010: tubular adenoma and sessile serrated polyps removed, 1 yr recall recommended. Blood ct stable, + formed black stool in small amt today w/o signs of melena or BRBPR. - Monitor blood ct - Defer endoscopic evaluation at this time. - Restart diet - Protonix 40mg daily - GI to sign off; pls recall prn Admission and Anticipated Discharge Date Admission Date: October 07, 2020 Supervising Physician Co-Signing Physician Notes I saw and evaluated the patient, we were consulted for question of dark stool. It appears that the stool is not consistent with melena as it is solid and the patient has had no significant drop in his hemoglobin or hematocrit. Given the patient's comorbidities endoscopic evaluation is probably not warranted at the present time. Please call with any questions or concerns GI to sign off Subjective Pt denies abd pain, n/v. Wants diet started. He did have small formed black stool this AM, witnessed by nurse. No melena noted or BRBPR. Blood ct stable at his baseline. Review of Systems Review of Systems: All systems reviewed & are unremarkable except as noted in HPI & below Physical Exam Constitutional: WD/WN, vitals as above well groomed, cooperative and comfortable Eyes: PERRL, conjunctivae normal, anicteric sclerae ENMT: external ear and nose normal, oropharynx normal Respiratory: normal respiratory effort, lungs clear to auscultation Cardiovascular: RRR, no murmur, no edema Gastrointestinal (Abdomen): normal bowel sounds, soft, nontender, no hepatosplenomegaly Skin: no rashes, warm and dry no jaundice Psychiatric: A+Ox3, euthymic affect Lymphatic: no lymphedema Results & Data ([facility]) Vital Signs (Past 12 Hours) Vital Signs Temp Pulse Pulse Resp BP Pulse Ox 10/08/20 08:13 36.4 C L 91 H 18 123/60 96 10/08/20 07:40 88 10/08/20 03:33 36.6 C 96 H 18 116/66 97 10/08/20 00:39 108 H 10/07/20 23:35 36.7 C 95 H 17 112/68 96 (1) GI bleed GI bleed type/associated pathology: unspecified gastrointestinal hemorrhage type Qualified Code(s): K92.2 - Gastrointestinal hemorrhage, unspecified
--- NOTE | 2020-10-08 12:20 | Hospitalist Progress Note ---
Date of Service October 08, 2020 Assessment & Plan (1) Melena: He has history of GI bleed and has been on Plavix and Coumadin for non-ST elevation [place] and PAF Presented with melena without any other significant symptoms His hemoglobin has not dropped significantly and melena seems to be improved Appreciate GI input and recommendation Has been getting intravenous Protonix No plan for endoscopy at this time Diet has been started (2) Anemia: Secondary to GI bleed and complicated by end-stage renal disease (3) Non-ST elevation (NSTEMI) myocardial infarction: Recent non-ST elevation [place] in August and the patient declined cardiac cath Has been on Plavix due to aspirin allergy and also on Coumadin Appreciate cardiology input and recommendation We will continue Plavix and hold off Coumadin until being evaluated by general warehouse worker as an outpatient (4) ESRD (end stage renal disease) on dialysis: Has had dialysis yesterday Appreciate nephrology input and recommendation We will continue hemodialysis as before (5) PAF (paroxysmal atrial fibrillation): Has tachycardia, borderline We will continue current medications except Coumadin (6) Chronic right heart failure: We will continue dialysis as before No acute fluid overload (7) GI bleed: Likely upper Hemoglobin did not drop Appreciate GI input No plan for scope (8) PMR (polymyalgia rheumatica): (9) HTN (hypertension): (10) Dyslipidemia: (11) Type 2 diabetes mellitus: We will monitor On SSI DVT prophylaxis SCDs-has been on Coumadin and Plavix CODE STATUS Full Admission and Anticipated Discharge Date Admission Date: October 07, 2020 Subjective The patient was seen and examined in telemetry unit He has multiple significant medical condition including end-stage renal disease on hemodialysis, recent non-ST JUANITA 1 Coumadin and Plavix was admitted with melena likely secondary to upper GI bleed He denies any complaints as of today and has had hemodialysis yesterday He denies any chest pain and/or palpitation and he wants to go home Review of Systems Review of Systems: All systems reviewed and are unremarkable except as noted below Cardiovascular: no chest pain and no palpitations Gastrointestinal: no abdominal pain, no bloating, no nausea, no vomiting and no blood in stools Physical Exam Physical Exam: Sitting on a chair without any symptoms Constitutional: well developed and well nourished; no acute distress and not ill appearing Eyes: PERRL, conjunctivae normal, anicteric sclerae ENMT: external ear and nose normal, oropharynx normal Neck: trachea midline, no thyromegaly Respiratory: no respiratory distress Auscultation: + diminished lung sounds and + crackles (Minimal bibasilar crackles) Cardiovascular: Rate/Rhythm: + irregularly irregular Heart Sounds: no murmur Extremities: + edema Gastrointestinal (Abdomen): Inspection/Auscultation: normal bowel sounds; abdomen not distended Percussion/Palpation: abdomen soft; abdomen nontender Musculoskeletal: No acute arthritis in any joint Neurologic: Alert, awake and oriented x3. Generally weak but no focal neuro deficit Psychiatric: A+Ox3, euthymic affect Lymphatic: no cervical or axillary lymphadenopathy Results & Data Results & Data ([facility]) Vital Signs (Past 12 Hours) Vital Signs Temp Pulse Pulse Resp BP Pulse Ox 10/08/20 11:41 37.1 C 101 H 18 112/69 94 10/08/20 08:13 36.4 C L 91 H 18 123/60 96 10/08/20 07:40 88 10/08/20 03:33 36.6 C 96 H 18 116/66 97 10/08/20 00:39 108 H Laboratory Results Short CBC 10/07/20 10/08/20 Range/Units 19:56 07:29 WBC 7.83 (4.8-10.8) K/uL Hgb 8.3 L 8.3 L (14.0-18.0) g/dL Hct 25.9 L 26.6 L (42-52) % Plt Count 151 (130-400) K/uL BMP 10/08/20 07:29 Sodium 135 L Potassium 4.4 Chloride 98 Carbon Dioxide 27 BUN 39 H Creatinine 3.90 H D Glucose 134 H Calcium 8.9 Medications Administered Current Inpatient Medications Acetaminophen (Acetaminophen 325 Mg Tab) 650 mg PO Q4H PRN PRN Reason: Pain or Fever Stop: 11/06/20 04:26 Acetaminophen (Acetaminophen 500 Mg Tab) 1,000 mg PO Q8 PRN PRN Reason: Pain Stop: 11/06/20 04:26 Hydrocodone Bitart/Acetaminophen (Hydrocodone/Acetamophen 5/325mg Tab) 1 tab PO Q8 PRN PRN Reason: Pain Stop: 10/21/20 04:38 Last Admin: 10/07/20 22:19 Dose: 1 tab Documented by: Atorvastatin Calcium (Atorvastatin 40 Mg Tab) 40 mg PO QAM [facility] Stop: 11/06/20 08:59 Last Admin: 10/08/20 09:40 Dose: 40 mg Documented by: Clopidogrel Bisulfate (Clopidogrel Bisulfate 75 Mg Tab) 75 mg PO DAILY [facility] Stop: 11/06/20 08:59 Last Admin: 10/07/20 10:13 Dose: 75 mg Documented by: Dextrose (Dextrose 50% 50 Ml Syringe) 25 - 50 ml IV UD PRN; Protocol PRN Reason: Hypoglycemia Protocol Stop: 11/06/20 04:59 Diphenoxylate HCl/Atropine (Diphenoxylate/Atropine 2.5/0.025mg Tab) 1 - 2 tab PO UD PRN PRN Reason: Diarrhea Stop: 11/06/20 04:26 Docusate Sodium (Docusate Sodium 100 Mg Cap) 100 mg PO BID PRN PRN Reason: Constipation Stop: 11/06/20 04:41 Fluticasone Propionate (Fluticasone Propionate Na Spr 16 Gm Btl) 1 sprays NA DAILY [facility] Stop: 11/06/20 08:59 Last Admin: 10/08/20 08:36 Dose: Not Given Documented by: Glucagon (Glucagon For Inj 1 Mg Vial) 1 mg SQ UD PRN; Protocol PRN Reason: Hypoglycemia Protocol Stop: 11/06/20 04:59 Glucose (Glucose 40% Gel 15 Gm Tube) 15 - 30 gm PO UD PRN; Protocol PRN Reason: Hypoglycemia Protocol Stop: 11/06/20 04:59 Glucose (Glucose 10 Tabs/Tube) 4 - 8 tabs PO UD PRN; Protocol PRN Reason: Hypoglycemia Protocol Stop: 11/06/20 04:59 Pantoprazole Sodium 40 mg/ (Syringe) 10 mls @ 5 mls/min IV BID [facility] Stop: 11/06/20 20:59 Last Admin: 10/08/20 08:36 Dose: 5 mls/min Documented by: Insulin Aspart (Insulin Aspart 100 Units/Ml 3 Ml Pen) 0 units SC ACHS [facility] Stop: 11/06/20 05:59 Last Admin: 10/08/20 11:17 Dose: 2 units Documented by: Lidocaine/Prilocaine (Lidocaine/Prilocaine 2.5% Ea Crm) 1 ea EXT MoWeFr@0900 [facility] Stop: 11/07/20 08:59 Last Admin: 10/08/20 10:05 Dose: Not Given Documented by: Miscellaneous (Butrans~Order Awaiting Action) 1 ea N/A QS [facility] Stop: 11/06/20 07:59 Last Admin: 10/08/20 08:31 Dose: Not Given Documented by: Miscellaneous (Carbohydrates For Hypoglycemia ) 15 - 30 gm PO UD PRN PRN Reason: Hypoglycemia Treatment Stop: 11/06/20 04:59 Nitroglycerin (Nitroglycerin Sl 0.4 Mg/Tab Tab) 0.4 mg SL UD PRN PRN Reason: Chest Pain Stop: 11/06/20 04:26 Ondansetron HCl (Ondansetron Inj 2 Mg/Ml 2 Ml Vial) 4 mg IV Q6H PRN PRN Reason: Nausea Stop: 11/06/20 04:26 Raspberry (Raspberry Syrup 5 Ml Udp) 5 ml PO QAM [facility] Stop: 10/21/20 08:59 Last Admin: 10/08/20 09:40 Dose: 5 ml Documented by: Sevelamer HCl (Sevelamer Hcl 800 Mg Tablet) 800 mg PO BID [facility] Stop: 11/06/20 08:59 Last Admin: 10/08/20 09:40 Dose: 800 mg Documented by: Sevelamer HCl (Sevelamer Hcl 800 Mg Tablet) 1,600 mg PO DAILYBD [facility] Stop: 11/06/20 15:29 Last Admin: 10/07/20 20:16 Dose: Not Given Documented by: Vancomycin HCl (Vancomycin Hcl 125 Mg/2.5ml Soln) 125 mg PO DAILY [facility] Stop: 10/17/20 08:59 Last Admin: 10/08/20 09:40 Dose: 125 mg Documented by: Vitamin B Complex (Vitamin B Complex Tab) 1 tab PO DAILY [facility] Stop: 11/06/20 08:59 Last Admin: 10/08/20 09:39 Dose: 1 tab Documented by: Vitamin D (Cholecalciferol 1,000 Units 25 Mcg Tab) 1,000 units PO HS [facility] Stop: 11/06/20 20:59 Last Admin: 10/07/20 20:16 Dose: 1,000 units Documented by: (1) GI bleed GI bleed type/associated pathology: unspecified gastrointestinal hemorrhage type Qualified Code(s): K92.2 - Gastrointestinal hemorrhage, unspecified
[2020-10-08] MEDS: CHOLECALCIFEROL 1,000 UNITS 25 MCG TAB PO SCH (20:39)
[2020-10-09] MEDS ORDERED: SODIUM CHLORIDE 0.9% 1000ML 1,000 ML IV PRN (07:00)
[2020-10-09] MEDS ORDERED: EPOETIN ALFA 24,000 UNITS in SYRINGE 0 ML IV SCH (07:00)
[2020-10-09] MEDS ORDERED: EPOETIN ALFA 4,000 UNIT/ML VIAL IV ONE (07:00)
[2020-10-09] MEDS ORDERED: HEPARIN SOD (PORCINE) 1000 UNIT/ML 10 ML VIAL IV ONE (07:00)
[2020-10-09] MEDS: INSULIN ASPART 100 UNITS/ML 3 ML PEN SC SCH ×4 (07:50→20:34)
[2020-10-09] MEDS: CLOPIDOGREL BISULFATE 75 MG TAB PO SCH (07:56)
[2020-10-09] MEDS: ATORVASTATIN 40 MG TAB PO SCH (07:56)
[2020-10-09] MEDS: SEVELAMER HCL 800 MG TABLET PO SCH ×3 (07:56→20:34)
[2020-10-09] MEDS: VITAMIN B COMPLEX TAB PO SCH (07:56)
[2020-10-09] MEDS: PANTOprazole 40 MG in SYRINGE 0 ML IV SCH ×2 (07:56→20:51)
[2020-10-09] MEDS: RASPBERRY SYRUP 5 ML UDP PO SCH (07:57)
[2020-10-09] MEDS: VANCOMYCIN HCL 125 MG/2.5ML SOLN PO SCH (07:59)
[2020-10-09] MEDS: FLUTICASONE PROPIONATE NA SPR 16 GM BTL SCH (08:00)
[2020-10-09 08:47] LABS: Hematocrit (blood only) 23.2 % (42-52); Hemoglobin 7.5 g/dL (14.0-18.0); Mean Corpuscular Hemoglobin 38.1 pg (25-34); Mean Corpuscular Hgb Conc 32.3 g/dL (32-36); Mean Corpuscular Volume 117.8 fL (80-100); Platelet Count 170 K/uL (130-400); RDW Coefficient of Variation 17.2 % (11.5-14.5); RDW Standard Deviation 70.4 fL (36.4-46.3); Red Blood Count 1.97 M/uL (4.7-6.1)
[2020-10-09 08:59] LABS: INR 1.2 (0.9-1.1)
[2020-10-09 09:09] LABS: Basophils # (auto) 0.04 K/uL (0-0.2); Basophils % (auto) 0.4 %; Eosinophils # (auto) 0.22 K/uL (0-0.5); Immature Granulocytes # (auto) 0.21 K/uL (0.00-0.02); Immature Granulocytes % (auto) 1.9 %; Lymphocytes # (auto) 0.98 K/uL (1.2-3.4); Lymphocytes % (auto) 8.8 %; Macrocytosis Present; Monocytes # (auto) 0.87 K/uL (0.11-0.59); Monocytes % (auto) 7.8 %; Neutrophils # (auto) 8.78 K/uL (1.4-6.5); Neutrophils % (auto) 79.1 %
[2020-10-09 09:36] LABS: BUN Creatinine Ratio 9.8 (10-20); Calcium 8.8 mg/dl (8.5-10.1); Creatinine Clr Calc Pharmacy 10.7 ml/min; Est GFR (African American) 10.2; Est GFR (Non-African American) 8.8; Potassium 4.3 mmol/L (3.5-5.1)
[2020-10-09] MEDS: HEPARIN SOD (PORCINE) 1000 UNIT/ML 10 ML VIAL IV SCH ×3 (10:35→13:23)
--- NOTE | 2020-10-09 10:35 | Nephrology Progress Note ---
Date of Service October 09, 2020 Assessment & Plan (1) ESRD (end stage renal disease) on dialysis: on TRSat HD as OP and w/ chronic mild volume overload, as is in evidence today w/ elevated BNP and edema on exam -Tolerating dialysis well today. Will attempt to liter UF -no pRBC planned for now but if plan changes pls try to give on HD if possible (2) Melena: GI following > for observation at this time; endoscopy deferred (3) Anemia: Hb of 7.5 today. -no heparin in HD -aggressive epo and venofer w/ HD -if pRBC, pls if possible give on tx -serial hgb per primary (4) CHF (congestive heart failure): Will attempt to liter UF today. (5) CAD (coronary artery disease): s/p NSTEMI last month; marked cardiac complexity -f/u cardiology recs -cont BB Admission and Anticipated Discharge Date Admission Date: October 07, 2020 Subjective Patient was seen and examined while on dialysis. His main complaint is we akness. No shortness of breath. Blood pressure is soft. Tolerating dialysis well so far Review of Systems Review of Systems: All systems reviewed & are unremarkable except as noted in HPI & below Physical Exam Physical Exam: General exam: Appears comfortable, no acute distress HEENT: Pupils are equal and reactive to light Neck: No JVD, neck is supple trachea is midline Respiratory system: Clear breath sounds bilaterally. Gastrointestinal: Abdomen is soft, non distended, non tender, bowel sounds are present CVS: Regular rate and rhythm. No murmurs, rubs or gallops Musculoskeletal: No joint or muscle tenderness Extremities: Non tender, 1+ edema, peripheral pulses are present Neuro: Oriented, no tremors, no focal neurological deficits Skin: No rashes Access: Left upper arm AV fistula with good bruit Results & Data ([facility]) Vital Signs (Past 12 Hours) Vital Signs Temp Pulse Pulse Pulse Resp BP BP 10/09/20 09:40 107 H 127/82 10/09/20 09:31 100 H 122/76 10/09/20 09:25 36.5 C 102 H 10/09/20 07:01 36.5 C 86 20 122/69 10/09/20 07:00 81 10/09/20 04:00 36.6 C 86 20 118/62 10/08/20 23:42 37 C 87 20 112/63 10/08/20 23:00 79 Pulse Ox 10/09/20 09:40 10/09/20 09:31 10/09/20 09:25 10/09/20 07:01 98 10/09/20 07:00 10/09/20 04:00 98 10/08/20 23:42 98 10/08/20 23:00 Laboratory Results 10/09/20 08:17 10/09/20 08:17 WBC 11.10 H RBC 1.97 L MCV 117.8 H MCH 38.1 H MCHC 32.3 RDW Std Deviation 70.4 H RDW Coeff of Elvia 17.2 H Plt Count 170 MPV 12.0 H
--- NOTE | 2020-10-09 13:40 | Hospitalist Progress Note ---
Date of Service October 09, 2020 Assessment & Plan (1) Melena: He has history of GI bleed and has been on Plavix and Coumadin for non-ST elevation [place] and PAF Presented with melena without any other significant symptoms His hemoglobin has not dropped significantly and melena seems to be improved Appreciate GI input and recommendation Has been getting intravenous Protonix No plan for endoscopy at this time Diet has been started Hemoglobin is down to 7.5 today. Will check it again tomorrow and if drops below 7 will give blood transfusion since the patient is not having any cardiac symptoms (2) Anemia: Secondary to GI bleed and complicated by end-stage renal disease No plan to do any scope as per GI (3) Non-ST elevation (NSTEMI) myocardial infarction: Recent non-ST elevation [place] in August and the patient declined cardiac cath Has been on Plavix due to aspirin allergy and also on Coumadin Appreciate cardiology input and recommendation We will continue Plavix and hold off Coumadin until being evaluated by assistant surveyor as an outpatient (4) ESRD (end stage renal disease) on dialysis: Has had dialysis yesterday Appreciate nephrology input and recommendation Status post hemodialysis today (5) PAF (paroxysmal atrial fibrillation): Has tachycardia, borderline We will continue current medications except Coumadin Heart rate remains controlled (6) Chronic right heart failure: We will continue dialysis as before No acute fluid overload (7) GI bleed: Likely upper Hemoglobin did not drop Appreciate GI input No plan for scope (8) PMR (polymyalgia rheumatica): No flare (9) HTN (hypertension): (10) Dyslipidemia: (11) Type 2 diabetes mellitus: We will monitor On SSI DVT prophylaxis SCDs-has been on Coumadin and Plavix CODE STATUS Full Admission and Anticipated Discharge Date Admission Date: October 07, 2020 Subjective 10/08/2020 The patient was seen and examined in telemetry unit He has multiple significant medical condition including end-stage renal disease on hemodialysis, recent non-ST JUANITA 1 Coumadin and Plavix was admitted with melena likely secondary to upper GI bleed He denies any complaints as of today and has had hemodialysis yesterday He denies any chest pain and/or palpitation and he wants to go home 10/09/2020 The patient was seen and examined in telemetry unit He is a status post hemodialysis today Feels weak and tired Denies any other symptoms Review of Systems Review of Systems: All systems reviewed and are unremarkable except as noted below Physical Exam Physical Exam: Sitting on a chair without any symptoms Constitutional: well developed and well nourished; no acute distress and not ill appearing Eyes: PERRL, conjunctivae normal, anicteric sclerae ENMT: external ear and nose normal, oropharynx normal Neck: trachea midline, no thyromegaly Respiratory: no respiratory distress Auscultation: + diminished lung sounds and + crackles (Minimal bibasilar crackles) Cardiovascular: Rate/Rhythm: + irregularly irregular Heart Sounds: no murmur Extremities: + edema Gastrointestinal (Abdomen): Inspection/Auscultation: normal bowel sounds; abdomen not distended Percussion/Palpation: abdomen soft; abdomen nontender Musculoskeletal: No acute arthritis in any joint Neurologic: Alert, awake and oriented x3. Generally weak Psychiatric: A+Ox3, euthymic affect Lymphatic: no cervical or axillary lymphadenopathy Results & Data Results & Data ([facility]) Vital Signs (Past 12 Hours) Vital Signs Temp Pulse Pulse Pulse Resp BP BP 10/09/20 13:20 80 89/70 L 10/09/20 13:00 87 101/58 L 10/09/20 12:40 59 L 97/46 L 10/09/20 12:20 94 H 96/65 L 10/09/20 12:00 88 102/65 10/09/20 11:40 98 H 83/57 L 10/09/20 11:20 84 91/69 L 10/09/20 11:00 68 98/67 L 10/09/20 10:40 83 100/70 10/09/20 10:20 88 103/67 10/09/20 10:00 83 108/62 10/09/20 09:40 107 H 127/82 10/09/20 09:31 100 H 122/76 10/09/20 09:25 36.5 C 102 H 10/09/20 07:01 36.5 C 86 20 122/69 10/09/20 07:00 81 10/09/20 04:00 36.6 C 86 20 118/62 Pulse Ox 10/09/20 13:20 10/09/20 13:00 10/09/20 12:40 10/09/20 12:20 10/09/20 12:00 10/09/20 11:40 10/09/20 11:20 10/09/20 11:00 10/09/20 10:40 10/09/20 10:20 10/09/20 10:00 10/09/20 09:40 10/09/20 09:31 10/09/20 09:25 10/09/20 07:01 98 10/09/20 07:00 10/09/20 04:00 98 Laboratory Results Short CBC 10/09/20 Range/Units 08:17 WBC 11.10 H (4.8-10.8) K/uL Hgb 7.5 L (14.0-18.0) g/dL Hct 23.2 L (42-52) % Plt Count 170 (130-400) K/uL BMP 10/09/20 08:17 Sodium 132 L Potassium 4.3 Chloride 94 L Carbon Dioxide 27 BUN 53 H Creatinine 5.43 H* D Glucose 192 H Calcium 8.8 Medications Administered Current Inpatient Medications Acetaminophen (Acetaminophen 325 Mg Tab) 650 mg PO Q4H PRN PRN Reason: Pain or Fever Stop: 11/06/20 04:26 Acetaminophen (Acetaminophen 500 Mg Tab) 1,000 mg PO Q8 PRN PRN Reason: Pain Stop: 11/06/20 04:26 Hydrocodone Bitart/Acetaminophen (Hydrocodone/Acetamophen 5/325mg Tab) 1 tab PO Q8 PRN PRN Reason: Pain Stop: 10/21/20 04:38 Last Admin: 10/07/20 22:19 Dose: 1 tab Documented by: Atorvastatin Calcium (Atorvastatin 40 Mg Tab) 40 mg PO QAM [facility] Stop: 11/06/20 08:59 Last Admin: 10/09/20 07:56 Dose: 40 mg Documented by: Clopidogrel Bisulfate (Clopidogrel Bisulfate 75 Mg Tab) 75 mg PO DAILY [facility] Stop: 11/06/20 08:59 Last Admin: 10/09/20 07:56 Dose: 75 mg Documented by: Dextrose (Dextrose 50% 50 Ml Syringe) 25 - 50 ml IV UD PRN; Protocol PRN Reason: Hypoglycemia Protocol Stop: 11/06/20 04:59 Diphenoxylate HCl/Atropine (Diphenoxylate/Atropine 2.5/0.025mg Tab) 1 - 2 tab PO UD PRN PRN Reason: Diarrhea Stop: 11/06/20 04:26 Docusate Sodium (Docusate Sodium 100 Mg Cap) 100 mg PO BID PRN PRN Reason: Constipation Stop: 11/06/20 04:41 Fluticasone Propionate (Fluticasone Propionate Na Spr 16 Gm Btl) 1 sprays NA DAILY [facility] Stop: 11/06/20 08:59 Last Admin: 10/09/20 08:00 Dose: Not Given Documented by: Glucagon (Glucagon For Inj 1 Mg Vial) 1 mg SQ UD PRN; Protocol PRN Reason: Hypoglycemia Protocol Stop: 11/06/20 04:59 Glucose (Glucose 40% Gel 15 Gm Tube) 15 - 30 gm PO UD PRN; Protocol PRN Reason: Hypoglycemia Protocol Stop: 11/06/20 04:59 Glucose (Glucose 10 Tabs/Tube) 4 - 8 tabs PO UD PRN; Protocol PRN Reason: Hypoglycemia Protocol Stop: 11/06/20 04:59 Pantoprazole Sodium 40 mg/ (Syringe) 10 mls @ 5 mls/min IV BID [facility] Stop: 11/06/20 20:59 Last Admin: 10/09/20 07:56 Dose: 5 mls/min Documented by: Epoetin Royer 24,000 units/ (Syringe) 1.2 mls @ 1 mls/min IV DAILY@0700 [facility] Stop: 10/09/20 22:00 Last Admin: 10/09/20 10:34 Dose: 1 mls/min Documented by: Insulin Aspart (Insulin Aspart 100 Units/Ml 3 Ml Pen) 0 units SC ACHS [facility] Stop: 11/06/20 05:59 Last Admin: 10/09/20 12:33 Dose: Not Given Documented by: Lidocaine/Prilocaine (Lidocaine/Prilocaine 2.5% Ea Crm) 1 ea EXT MoWeFr@0900 [facility] Stop: 11/07/20 08:59 Last Admin: 10/08/20 10:05 Dose: Not Given Documented by: Miscellaneous (Butrans~Order Awaiting Action) 1 ea N/A QS [facility] Stop: 11/06/20 07:59 Last Admin: 10/09/20 05:18 Dose: Not Given Documented by: Miscellaneous (Carbohydrates For Hypoglycemia ) 15 - 30 gm PO UD PRN PRN Reason: Hypoglycemia Treatment Stop: 11/06/20 04:59 Nitroglycerin (Nitroglycerin Sl 0.4 Mg/Tab Tab) 0.4 mg SL UD PRN PRN Reason: Chest Pain Stop: 11/06/20 04:26 Ondansetron HCl (Ondansetron Inj 2 Mg/Ml 2 Ml Vial) 4 mg IV Q6H PRN PRN Reason: Nausea Stop: 11/06/20 04:26 Raspberry (Raspberry Syrup 5 Ml Udp) 5 ml PO QAM [facility] Stop: 10/21/20 08:59 Last Admin: 10/09/20 07:57 Dose: 5 ml Documented by: Sevelamer HCl (Sevelamer Hcl 800 Mg Tablet) 800 mg PO BID [facility] Stop: 11/06/20 08:59 Last Admin: 10/09/20 07:56 Dose: 800 mg Documented by: Sevelamer HCl (Sevelamer Hcl 800 Mg Tablet) 1,600 mg PO DAILYBD [facility] Stop: 11/06/20 15:29 Last Admin: 10/08/20 15:05 Dose: 1,600 mg Documented by: Vancomycin HCl (Vancomycin Hcl 125 Mg/2.5ml Soln) 125 mg PO DAILY [facility] Stop: 10/17/20 08:59 Last Admin: 10/09/20 07:59 Dose: 125 mg Documented by: Vitamin B Complex (Vitamin B Complex Tab) 1 tab PO DAILY [facility] Stop: 11/06/20 08:59 Last Admin: 10/09/20 07:56 Dose: 1 tab Documented by: Vitamin D (Cholecalciferol 1,000 Units 25 Mcg Tab) 1,000 units PO HS [facility] Stop: 11/06/20 20:59 Last Admin: 10/08/20 20:39 Dose: 1,000 units Documented by: (1) GI bleed GI bleed type/associated pathology: unspecified gastrointestinal hemorrhage type Qualified Code(s): K92.2 - Gastrointestinal hemorrhage, unspecified
[2020-10-09] MEDS: CHOLECALCIFEROL 1,000 UNITS 25 MCG TAB PO SCH (20:33)
[2020-10-10 07:07] VITALS: BP 117/66; TEMP 97.9; O2SAT 100
[2020-10-10 07:44] LABS: Basophils # (auto) 0.04 K/uL (0-0.2); Basophils % (auto) 0.5 %; Eosinophils # (auto) 0.17 K/uL (0-0.5); Hematocrit (blood only) 27.3 % (42-52); Hemoglobin 9.1 g/dL (14.0-18.0); Immature Granulocytes # (auto) 0.16 K/uL (0.00-0.02); Immature Granulocytes % (auto) 1.9 %; Lymphocytes # (auto) 1.19 K/uL (1.2-3.4); Lymphocytes % (auto) 13.8 %; Mean Corpuscular Hemoglobin 38.9 pg (25-34); Mean Corpuscular Hgb Conc 33.3 g/dL (32-36); Mean Corpuscular Volume 116.7 fL (80-100); Mean Platelet Volume 11.9 fL (7.4-10.4); Monocytes # (auto) 1.04 K/uL (0.11-0.59); Monocytes % (auto) 12.1 %; Neutrophils # (auto) 6.02 K/uL (1.4-6.5); Neutrophils % (auto) 69.7 %; Nucleated RBC # (auto) 0.04 K/uL (0-0); Nucleated RBC % (auto) 0.5 %; Platelet Count 181 K/uL (130-400); RDW Coefficient of Variation 17.7 % (11.5-14.5); RDW Standard Deviation 72.9 fL (36.4-46.3); Red Blood Count 2.34 M/uL (4.7-6.1); White Blood Count 8.62 K/uL (4.8-10.8)
[2020-10-10 07:56] LABS: INR 1.2 (0.9-1.1)
[2020-10-10 08:10] LABS: BUN Creatinine Ratio 6.9 (10-20); Calcium 8.9 mg/dl (8.5-10.1); Creatinine Clr Calc Pharmacy 15.8 ml/min; Est GFR (African American) 16.6; Est GFR (Non-African American) 14.3; Potassium 3.9 mmol/L (3.5-5.1)
[2020-10-10 08:16] LABS: Macrocytosis Present; Platelet Estimate Normal (Normal)
[2020-10-10] MEDS: PANTOprazole 40 MG in SYRINGE 0 ML IV SCH (08:19)
[2020-10-10] MEDS: SEVELAMER HCL 800 MG TABLET PO SCH (08:19)
[2020-10-10] MEDS: RASPBERRY SYRUP 5 ML UDP PO SCH (08:20)
[2020-10-10] MEDS: VITAMIN B COMPLEX TAB PO SCH (08:20)
[2020-10-10] MEDS: ATORVASTATIN 40 MG TAB PO SCH (08:20)
[2020-10-10] MEDS: CLOPIDOGREL BISULFATE 75 MG TAB PO SCH (08:20)
[2020-10-10] MEDS: FLUTICASONE PROPIONATE NA SPR 16 GM BTL SCH (08:21)
[2020-10-10] MEDS: INSULIN ASPART 100 UNITS/ML 3 ML PEN SC SCH (08:21)
[2020-10-10] MEDS: VANCOMYCIN HCL 125 MG/2.5ML SOLN PO SCH (08:26)
--- NOTE | 2020-10-10 10:14 | Hospitalist Progress Note ---
Date of Service October 10, 2020 Assessment & Plan (1) Melena: He has history of GI bleed and has been on Plavix and Coumadin for non-ST elevation [place] and PAF Presented with melena without any other significant symptoms His hemoglobin has not dropped significantly and melena seems to be improved Appreciate GI input and recommendation Has been getting intravenous Protonix No plan for endoscopy at this time Diet has been started Hemoglobin is down to 7.5 today. Will check it again tomorrow and if drops below 7 will give blood transfusion since the patient is not having any cardiac symptoms Hemoglobin went up to 9.1 today No more melena and the patient be discharged this afternoon (2) Anemia: Secondary to GI bleed and complicated by end-stage renal disease No plan to do any scope as per GI Hemoglobin is stable and is 9.1 as of 10/10/2020 (3) Non-ST elevation (NSTEMI) myocardial infarction: Recent non-ST elevation OR in August and the patient declined cardiac cath Has been on Plavix due to aspirin allergy and also on Coumadin Appreciate cardiology input and recommendation We will continue Plavix and hold off Coumadin until being evaluated by wire spiral binder as an outpatient (4) ESRD (end stage renal disease) on dialysis: Has had dialysis yesterday Appreciate nephrology input and recommendation Status post hemodialysis today Will have hemodialysis as planned as an outpatient (5) PAF (paroxysmal atrial fibrillation): Has tachycardia, borderline We will continue current medications except Coumadin Heart rate remains controlled (6) Chronic right heart failure: We will continue dialysis as before No acute fluid overload (7) GI bleed: Likely upper Hemoglobin did not drop Appreciate GI input No plan for scope (8) PMR (polymyalgia rheumatica): No flare (9) HTN (hypertension): (10) Dyslipidemia: (11) Type 2 diabetes mellitus: We will monitor On SSI DVT prophylaxis SCDs-has been on Coumadin and Plavix CODE STATUS Full Will be discharged home this afternoon Admission and Anticipated Discharge Date Admission Date: October 07, 2020 Subjective 10/08/2020 The patient was seen and examined in telemetry unit He has multiple significant medical condition including end-stage renal disease on hemodialysis, recent non-ST JUANITA 1 Coumadin and Plavix was admitted with melena likely secondary to upper GI bleed He denies any complaints as of today and has had hemodialysis yesterday He denies any chest pain and/or palpitation and he wants to go home 10/09/2020 The patient was seen and examined in telemetry unit He is a status post hemodialysis today Feels weak and tired Denies any other symptoms 10/10/2020 The patient was seen and examined in telemetry unit He has been doing much better and wants to go home He denies any more black stool, hematemesis and or vomiting His hemoglobin remains stable to be discharged Review of Systems Review of Systems: All systems reviewed and are unremarkable except as noted below Physical Exam Physical Exam: Sitting on a chair without any symptoms Constitutional: well developed and well nourished; no acute distress and not ill appearing Eyes: PERRL, conjunctivae normal, anicteric sclerae ENMT: external ear and nose normal, oropharynx normal Neck: trachea midline, no thyromegaly Respiratory: no respiratory distress Auscultation: + diminished lung sounds and + crackles (Minimal bibasilar crackles) Cardiovascular: Rate/Rhythm: + irregularly irregular Heart Sounds: no murmur Extremities: + edema Gastrointestinal (Abdomen): Inspection/Auscultation: normal bowel sounds; abdomen not distended Percussion/Palpation: abdomen soft; abdomen nontender Musculoskeletal: No acute arthritis involving any joint Neurologic: Alert, awake and oriented x3. Generally weak but no focal sensory and motor deficit appreciated Psychiatric: A+Ox3, euthymic affect Lymphatic: no cervical or axillary lymphadenopathy Results & Data Results & Data ([facility]) Vital Signs (Past 12 Hours) Vital Signs Temp Pulse Pulse Resp BP Pulse Ox 10/10/20 07:29 82 10/10/20 07:06 36.6 C 85 18 117/66 100 10/10/20 03:49 36.8 C 72 19 113/79 91 10/10/20 00:51 82 10/09/20 22:54 36.7 C 80 18 114/66 97 Laboratory Results Short CBC 10/10/20 Range/Units 07:34 WBC 8.62 (4.8-10.8) K/uL Hgb 9.1 L (14.0-18.0) g/dL Hct 27.3 L (42-52) % Plt Count 181 (130-400) K/uL BMP 10/10/20 07:34 Sodium 134 L Potassium 3.9 Chloride 98 Carbon Dioxide 29 BUN 25 H D Creatinine 3.65 H D Glucose 148 H Calcium 8.9 Medications Administered Current Inpatient Medications Acetaminophen (Acetaminophen 325 Mg Tab) 650 mg PO Q4H PRN PRN Reason: Pain or Fever Stop: 11/06/20 04:26 Acetaminophen (Acetaminophen 500 Mg Tab) 1,000 mg PO Q8 PRN PRN Reason: Pain Stop: 11/06/20 04:26 Hydrocodone Bitart/Acetaminophen (Hydrocodone/Acetamophen 5/325mg Tab) 1 tab PO Q8 PRN PRN Reason: Pain Stop: 10/21/20 04:38 Last Admin: 10/07/20 22:19 Dose: 1 tab Documented by: Atorvastatin Calcium (Atorvastatin 40 Mg Tab) 40 mg PO QAM JAMES Stop: 11/06/20 08:59 Last Admin: 10/10/20 08:20 Dose: 40 mg Documented by: Clopidogrel Bisulfate (Clopidogrel Bisulfate 75 Mg Tab) 75 mg PO DAILY JAMES Stop: 11/06/20 08:59 Last Admin: 10/10/20 08:20 Dose: 75 mg Documented by: Dextrose (Dextrose 50% 50 Ml Syringe) 25 - 50 ml IV UD PRN; Protocol PRN Reason: Hypoglycemia Protocol Stop: 11/06/20 04:59 Diphenoxylate HCl/Atropine (Diphenoxylate/Atropine 2.5/0.025mg Tab) 1 - 2 tab PO UD PRN PRN Reason: Diarrhea Stop: 11/06/20 04:26 Docusate Sodium (Docusate Sodium 100 Mg Cap) 100 mg PO BID PRN PRN Reason: Constipation Stop: 11/06/20 04:41 Fluticasone Propionate (Fluticasone Propionate Na Spr 16 Gm Btl) 1 sprays NA DAILY JAMES Stop: 11/06/20 08:59 Last Admin: 10/10/20 08:21 Dose: Not Given Documented by: Glucagon (Glucagon For Inj 1 Mg Vial) 1 mg SQ UD PRN; Protocol PRN Reason: Hypoglycemia Protocol Stop: 11/06/20 04:59 Glucose (Glucose 40% Gel 15 Gm Tube) 15 - 30 gm PO UD PRN; Protocol PRN Reason: Hypoglycemia Protocol Stop: 11/06/20 04:59 Glucose (Glucose 10 Tabs/Tube) 4 - 8 tabs PO UD PRN; Protocol PRN Reason: Hypoglycemia Protocol Stop: 11/06/20 04:59 Pantoprazole Sodium 40 mg/ (Syringe) 10 mls @ 5 mls/min IV BID [facility] Stop: 11/06/20 20:59 Last Admin: 10/10/20 08:19 Dose: 5 mls/min Documented by: Insulin Aspart (Insulin Aspart 100 Units/Ml 3 Ml Pen) 0 units SC ACHS [facility] Stop: 11/06/20 05:59 Last Admin: 10/10/20 08:21 Dose: Not Given Documented by: Lidocaine/Prilocaine (Lidocaine/Prilocaine 2.5% Ea Crm) 1 ea EXT [id number] [facility] Stop: 11/07/20 08:59 Last Admin: 10/08/20 10:05 Dose: Not Given Documented by: Miscellaneous (Butrans~Order Awaiting Action) 1 ea N/A QS [facility] Stop: 11/06/20 07:59 Last Admin: 10/09/20 05:18 Dose: Not Given Documented by: Miscellaneous (Carbohydrates For Hypoglycemia ) 15 - 30 gm PO UD PRN PRN Reason: Hypoglycemia Treatment Stop: 11/06/20 04:59 Nitroglycerin (Nitroglycerin Sl 0.4 Mg/Tab Tab) 0.4 mg SL UD PRN PRN Reason: Chest Pain Stop: 11/06/20 04:26 Ondansetron HCl (Ondansetron Inj 2 Mg/Ml 2 Ml Vial) 4 mg IV Q6H PRN PRN Reason: Nausea Stop: 11/06/20 04:26 Raspberry (Raspberry Syrup 5 Ml Udp) 5 ml PO QAM [facility] Stop: 10/21/20 08:59 Last Admin: 10/10/20 08:20 Dose: 5 ml Documented by: Sevelamer HCl (Sevelamer Hcl 800 Mg Tablet) 800 mg PO BID [facility] Stop: 11/06/20 08:59 Last Admin: 10/10/20 08:19 Dose: 800 mg Documented by: Sevelamer HCl (Sevelamer Hcl 800 Mg Tablet) 1,600 mg PO DAILYBD [facility] Stop: 11/06/20 15:29 Last Admin: 10/09/20 16:35 Dose: 1,600 mg Documented by: Vancomycin HCl (Vancomycin Hcl 125 Mg/2.5ml Soln) 125 mg PO DAILY [facility] Stop: 10/17/20 08:59 Last Admin: 10/10/20 08:26 Dose: 125 mg Documented by: Vitamin B Complex (Vitamin B Complex Tab) 1 tab PO DAILY JAMES Stop: 11/06/20 08:59 Last Admin: 10/10/20 08:20 Dose: 1 tab Documented by: Vitamin D (Cholecalciferol 1,000 Units 25 Mcg Tab) 1,000 units PO HS JAMES Stop: 11/06/20 20:59 Last Admin: 10/09/20 20:33 Dose: 1,000 units Documented by: (1) GI bleed GI bleed type/associated pathology: unspecified gastrointestinal hemorrhage type Qualified Code(s): K92.2 - Gastrointestinal hemorrhage, unspecified
[2020-10-10 10:36] VITALS: PULSE 85
--- NOTE | 2020-10-10 10:39 | Nephrology Progress Note ---
Date of Service October 10, 2020 Assessment & Plan (1) ESRD (end stage renal disease) on dialysis: on TRSat HD as OP and w/ chronic mild volume overload, as is in evidence today w/ elevated BNP and edema on exam -Tolerated dialysis well yesterday with net UF of 1.6 L. Labs are stable. Hemo globin uptrending. -From renal standpoint patient can be discharged to continue dialysis outpatient (2) Melena: GI following > for observation at this time; endoscopy deferred (3) Anemia: Hb of 9.1 today. -aggressive epo and venofer w/ HD -if pRBC, pls if possible give on tx -serial hgb per primary (4) CHF (congestive heart failure): Improving. We will continue ultrafiltration at dialysis (5) CAD (coronary artery disease): s/p NSTEMI last month; marked cardiac complexity -f/u cardiology recs -cont BB Admission and Anticipated Discharge Date Admission Date: October 07, 2020 Subjective Seen for ESRD. He had dialysis yesterday with net UF of 1.6 L. Feels well today. No shortness of breath. Review of Systems Review of Systems: All systems reviewed & are unremarkable except as noted in HPI & below Physical Exam Physical Exam: General exam: Appears comfortable, no acute distress HEENT: Pupils are equal and reactive to light Neck: No JVD, neck is supple trachea is midline Respiratory system: Clear breath sounds bilaterally. Gastrointestinal: Abdomen is soft, non distended, non tender, bowel sounds are present CVS: Regular rate and rhythm. No murmurs, rubs or gallops Musculoskeletal: No joint or muscle tenderness Extremities: Non tender, no edema, peripheral pulses are present Neuro: Oriented, no tremors, no focal neurological deficits Skin: No rashes Results & Data ([facility]) Vital Signs (Past 12 Hours) Vital Signs Temp Pulse Pulse Pulse Resp BP Pulse Ox 10/10/20 10:35 36.6 C 99 H 85 18 117/66 100 10/10/20 07:29 82 10/10/20 07:06 36.6 C 85 18 117/66 100 10/10/20 03:49 36.8 C 72 19 113/79 91 10/10/20 00:51 82 10/09/20 22:54 36.7 C 80 18 114/66 97 Laboratory Results 10/10/20 07:34 10/10/20 07:34 WBC 8.62 RBC 2.34 L MCV 116.7 H MCH 38.9 H MCHC 33.3 RDW Std Deviation 72.9 H RDW Coeff of Elvia 17.7 H Plt Count 181 MPV 11.9 H
--- NOTE | 2020-10-10 12:37 | Cardiology Progress Note ---
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 INR was therapeutic at 2.4 and he was given vitamin K for reversal. Very complex cardiac history including recent non-ST segment elevation CT treated medically, patient reported unable to tolerate aspirin, has been on Plav ix. Multiple indications for Coumadin including paroxysmal atrial fibrillation and history of life-threatening pulmonary embolism. Currently the patient is in atrial fibrillation Hemoglobin has improved after dialysis.? Dilutional Recommend continuing Plavix given the recent non-ST segment elevation CT. Given the fact the patient is in atrial fibrillation anticoagulation would be indicated from a cardiac standpoint but would be reasonable to hold for 1 week and follow for further blood loss prior to reinitiation. Okay to discharge from a cardiac standpoint. Admission and Anticipated Discharge Date Admission Date: October 07, 2020 Subjective Patient seen and examined, chart reviewed. Currently out of bed in chair, dressed, ready for discharge. States that he feels well and denies any cardiac complaints overnight. Specifically denies any chest pain, shortness of breath, palpitations, lightheadedness, dizziness or syncope. Telemetry reviewed: Alternating sinus rhythm and atrial fibrillation rate controlled. Review of Systems Review of Systems: All systems reviewed & are unremarkable except as noted in HPI & below Physical Exam Physical Exam: General: Awake, alert and oriented x 3. No acute distress. HEENT: Normocephalic, atraumatic. Pupils equal, round and reactive to light and accommodation. Extraocular muscles are intact. Anicteric sclera. Moist mucous membranes. Neck: No JVD. No bruit. Cardiovascular: irregularly irregular, unable to appreciate murmur, rub or gallop. Pulmonary: Clear to auscultation bilaterally. No rales, rhonchi, or wheezing. Abdomen: Bowel sounds x 4, soft. No rebound, guarding or tenderness. No organomegaly. Extremities: No clubbing, cyanosis or edema. +2 pedal pulses bilaterally. Skin: Warm and dry. Results & Data ([facility]) Vital Signs (Past 12 Hours) Vital Signs Temp Pulse Pulse Pulse Resp BP Pulse Ox 10/10/20 10:35 36.6 C 99 H 85 18 117/66 100 10/10/20 07:29 82 10/10/20 07:06 36.6 C 85 18 117/66 100 10/10/20 03:49 36.8 C 72 19 113/79 91 10/10/20 00:51 82
--- NOTE | 2020-10-11 07:23 | Discharge Summary ---
Date of Service October 11, 2020 Admission HPI Per Admitting Provider DICTATED BY: Jeff Csineros MD DATE OF ADMISSION: 10/07/2020 CHIEF COMPLAINT: GI bleed. 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 THE PATIENT HAS ALLERGY TO ASPIRIN. He was anticoagulated on Coumadin and cardiology started on Toprol-XL 25 mg p.o. daily, no SAMPSON, ARB in light of CKD and he was started on atorvastatin 40 mg daily and Plavix 75 mg p.o. daily for 30 days was recommended. The patient says since yesterday he has had 3-4 black stools. Denies any abdominal pain. Did not notice any blood in the stools. His Hemoccult was positive in the ER. Denies any chest pain, no shortness of breath, no cough, no headache, no blurred vision, no earache, no runny nose, no sore throat, no nausea, no vomiting. Normal bladder movements. Lives with his . Ambulating okay. Currently resting comfortably and hemodynamically stable. Admission Exam Per Admitting Provider GENERAL: The patient is of moderate build, not in acute distress. VITAL SIGNS: Temperature 36.6, pulse 88, respiratory rate in the 20s, blood pressure 110/67, oxygen 98% on room air. HEENT: No pallor, no icterus. Oral mucosa moist. NECK: No JVD. No neck masses. CARDIOVASCULAR: S1, S2 heard, regular rate and rhythm, no murmur, no gallop. RESPIRATORY SYSTEM: Normal AP diameter. No accessory muscle use. No wheezing, no crackles. ABDOMEN: Soft, bowel sounds present, nontender. No distention. CENTRAL NERVOUS SYSTEM: Cranial nerves II-XII grossly intact, nonfocal. EXTREMITIES: Chronic lower extremity edema present, no erythema seen. Principal Diagnosis GI bleed with melena, no blood transfusion needed, end-stage renal disease on hemodialysis, recent non-ST elevation [place], atrial fibrillation Discharge Exam Constitutional well developed and well nourished; no acute distress and not ill appearing Eyes PERRL, conjunctivae normal, anicteric sclerae ENMT external ear and nose normal, oropharynx normal Neck trachea midline, no thyromegaly Respiratory no respiratory distress Auscultation: + diminished lung sounds and + crackles (Minimal bibasilar crackles) Cardiovascular Rate/Rhythm: + irregularly irregular Heart Sounds: no murmur Extremities: + edema Gastrointestinal (Abdomen) Inspection/Auscultation: normal bowel sounds; abdomen not distended Percussion/Palpation: abdomen soft; abdomen nontender Psychiatric A+Ox3, euthymic affect Lymphatic no cervical or axillary lymphadenopathy Discharge Data Allergies Allergy/AdvReac Type Severity Reaction Status Date / Time aspirin Allergy Unknown . Verified 10/06/20 22:42 salicylates Allergy Unknown UNKNOWN Verified 10/06/20 22:42 Consultations 10/06/20 21:38 ED Decision to Admit Stat 10/07/20 04:27 Consult Case Management - Discharge Planning Routine 10/07/20 08:00 Consult Cardiology Routine Consult Gastroenterology Routine Consult Nephrology Routine Ordered Studies 10/06/20 19:25 CT abd pelvis wo con Stat Hospital Course (1) Melena: He has history of GI bleed and has been on Plavix and Coumadin for non-ST elevation MN and PAF Presented with melena without any other significant symptoms His hemoglobin has not dropped significantly and melena seems to be improved Appreciate GI input and recommendation Has been getting intravenous Protonix No plan for endoscopy at this time Diet has been started Hemoglobin is down to 7.5 today. Will check it again tomorrow and if drops below 7 will give blood transfusion since the patient is not having any cardiac symptoms Hemoglobin went up to 9.1 today No more melena and the patient be discharged this afternoon (2) Anemia: Secondary to GI bleed and complicated by end-stage renal disease No plan to do any scope as per GI Hemoglobin is stable and is 9.1 as of 10/10/2020 (3) Non-ST elevation (NSTEMI) myocardial infarction: Recent non-ST elevation MN in August and the patient declined cardiac cath Has been on Plavix due to aspirin allergy and also on Coumadin Appreciate cardiology input and recommendation We will continue Plavix and hold off Coumadin until being evaluated by c ardiologist as an outpatient (4) ESRD (end stage renal disease) on dialysis: Has had dialysis yesterday Appreciate nephrology input and recommendation Status post hemodialysis today Will have hemodialysis as planned as an outpatient (5) PAF (paroxysmal atrial fibrillation): Has tachycardia, borderline We will continue current medications except Coumadin Heart rate remains controlled (6) Chronic right heart failure: We will continue dialysis as before No acute fluid overload (7) GI bleed: Likely upper Hemoglobin did not drop Appreciate GI input No plan for scope (8) PMR (polymyalgia rheumatica): No flare (9) HTN (hypertension): (10) Dyslipidemia: (11) Type 2 diabetes mellitus: We will monitor On SSI DVT prophylaxis SCDs-has been on Coumadin and Plavix CODE STATUS Full Will be discharged home this afternoon Total Time Total Time Spent Total Time Spent (In Minutes): 35 minutes Total Time Includes: Examination of the Patient, Discharge Planning, Medication Reconciliation and Communication With Other Providers Discharge Plan Discharge Items Patient Disposition: Home - Self-Care Reason For Visit: GI BLEED Discharge Diagnosis: GI bleed with melena, no blood transfusion needed, end-stage renal disease on hemodialysis, recent non-ST elevation MN, atrial fibrillation Condition on Discharge: Good Activity: Resume your previous activity Non-emergency contact: Primary Care Provider Call non-emergency contact if: you have any medication questions and your symptoms worsen Follow-up/Referrals: Zach Gooden MD [Primary Care Provider] - (Your doctor's office will call with an appointment within 7 days) Diet: Carb Consistent or DM2, Dialysis Renal and Heart Healthy Fluids: 1500ml (6 cups) Addtl Attending Provider Instructions: Please take precaution to avoid falls Do not restart your Coumadin until about 7 days Please have your hemoglobin checked during the next visit with your PCP and if stable restart Coumadin Pending Studies at Discharge: No Stand-Alone Forms: [employer], Smoking Cessation Medications and DC Order Prescriptions: Continued omega 7-sho-oem-fish oil [Fish Oil] 1,000 mg (120 mg-180 mg) Capsule 1 cap PO DAILY RF: 0 Nephro-Neeraj 0.8 mg tablet 1 tab PO DAILY RF: 0 buprenorphine 7.5 mcg/hour patch weekly 1 patch topical WK RF: 0 ondansetron HCl 4 mg tablet 4 mg PO Q6 PRN (Reason: Nausea) RF: 0 vancomycin 125 mg capsule 125 mg PO DAILY RF: 0 diphenoxylate-atropine 2.5-0.025 mg tablet 1 - 2 tab PO UD MDD 8 tabs PRN (Reason: Diarrhea) RF: 0 menthol [Ice Blue Gel] 2 % Gel 1 applic TOPICAL UD PRN (Reason: Pain) RF: 0 fluticasone propionate 50 mcg/actuation [place],Suspension 1 spray INTRANASAL DAILY RF: 0 atorvastatin 40 mg Tablet 40 mg PO QAM Qty: 30 RF: 5 clopidogrel 75 mg tablet 75 mg PO DAILY Qty: 30 RF: 0 nitroglycerin 0.4 mg tablet, sublingual 0.4 mg sublingual ONCE PRN (Reason: chest pain) Qty: 25 RF: 1 acetaminophen 500 mg Tablet 1,000 mg PO Q8 PRN (Reason: Pain) RF: 0 hydrocodone-acetaminophen 5-325 mg tablet 1 tab PO Q8 PRN (Reason: Pain) RF: 0 cholecalciferol (vitamin D3) [Vitamin D3] 1,000 unit Capsule 1,000 unit PO HS RF: 0 docusate sodium 100 mg Tablet 100 mg PO BID PRN (Reason: Constipation) RF: 0 lidocaine-prilocaine 2.5-2.5 % cream 1 applic topical [id number] RF: 0 warfarin 5 mg tablet 5 mg PO UD RF: 0 sevelamer carbonate [Renvela] 800 mg Tablet 800 mg PO BID RF: 0 sevelamer carbonate [Renvela] 800 mg Tablet 1,600 mg PO DAILYBD RF: 0 Discharge Orders: Discharge Order (Routine); Ordered 10/10/20 Ordered By: Gerard Lancaster Admission Data Admit Date/Time: 10/07/20 00:16 Attending Provider: Gerard Lancaster Admit Provider: Jeff Cisneros Primary Care Provider: Zach Gooden Other Providers: Jeff Cisneros ; Tam Hernandez Irphan E. ; Ashly Myrick Other Interventions: Discharge Summary Assessment (RN) Last Done: 10/10/20 10:35
== END 2020-10-10 12:30 | disposition home or self-care (01) | DRG 377 ==
LOC: ED 19:07 → SUATTDRO 10-07 00:16 → EDINP 10-07 00:16 → 2S 10-07 04:10

== ENCOUNTER 2021-02-09 17:34 | Inpatient (IN) ==
[2021-02-09] MEDS ORDERED: ONDANSETRON INJ 2 MG/ML 2 ML VIAL IV STA (18:06)
--- NOTE | 2021-02-09 18:11 | Emergency Department Note ---
History of Present Illness General Chief complaint: Leg Weakness, Bilateral Stated complaint: WEAKNESS Time Seen by Provider: 02/09/21 17:59 Source: patient Mode of arrival: ambulatory Limitations: no limitations History of Present Illness Provider complaint: Weakness This is a 85-year-old male who presents to the ED with a chief complaint of generalized weakness. The patient states that he just does not feel well. He reports some nausea earlier. Denies any vomiting. He states that his stools are a little loose. He complains of some chronic back pain. He is dialysis dependent patient and anuric. He reports he last had dialysis on Sunday. He skipped his dialysis yesterday because he was not feeling well. He denies any headaches, chest pains, shortness of breath or abdominal pains. No recent illn ess. Home Medications Medication Instructions Recorded Confirmed Type cholecalciferol (vitamin D3) 1,000 unit PO HS 06/14/18 02/09/21 History [Vitamin D3] docusate sodium 100 mg PO BID PRN 03/18/19 02/09/21 History omega 0-kep-wcm-fish oil [Fish Oil] 1 cap PO DAILY 05/21/19 02/09/21 History lidocaine-prilocaine 1 applic TOPICAL 3XWK 11/13/19 02/09/21 History sevelamer carbonate [Renvela] 1,600 mg PO DAILYBD 11/13/19 02/09/21 History sevelamer carbonate [Renvela] 800 mg PO BID 11/13/19 02/09/21 History warfarin 5 mg PO UD 11/13/19 02/09/21 History Nephro-Neeraj 1 tab PO DAILY 09/07/20 02/09/21 History buprenorphine 1 patch TOPICAL WK 09/07/20 02/09/21 History diphenoxylate-atropine 1 - 2 tab PO UD PRN MDD 8 tabs 09/07/20 02/09/21 History fluticasone propionate 1 spray INTRANASAL DAILY PRN 09/07/20 02/09/21 History menthol [Ice Blue Gel] 1 applic TOPICAL UD PRN 09/07/20 02/09/21 History ondansetron HCl 4 mg PO Q6 PRN 09/07/20 02/09/21 History vancomycin 125 mg PO DAILY 09/07/20 02/09/21 History atorvastatin 40 mg PO QAM #30 tab 09/10/20 02/09/21 Rx nitroglycerin 0.4 mg SUBLINGUAL ONCE PRN #25 tab 09/10/20 02/09/21 Rx acetaminophen 1,000 mg PO Q8 PRN 10/06/20 02/09/21 History metoprolol succinate 25 mg PO DAILY 02/09/21 02/09/21 History Allergies Allergy/AdvReac Type Severity Reaction Status Date / Time aspirin Allergy Unknown . 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 Aortic valve insufficiency Atrial flutter CAD (coronary artery disease) s/p NSTEMI 09/07/20 CHF (congestive heart failure) mixed systolic + diastolic; underlying ischemic heart disease echo 09/07/20 LVEF 35-40% Diabetes mellitus type 2 with complications Do not resuscitate status DVT (deep venous thrombosis) " 01/13/09 left leg " Dyslipidemia ESRD (end stage renal disease) on dialysis GERD (gastroesophageal reflux disease) Gram-positive bacteremia HTN (hypertension) Hx of amaurosis fugax "01/27/09, OD " PMR (polymyalgia rheumatica) 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 Pulmonary embolus Type 2 diabetes mellitus Surgical History H/O carotid endarterectomy "2008" H/O removal of testicle H/O superior vena cava filter placement History of hydrocelectomy History of total hip replacement S/P ablation of atrial flutter S/P aortic valve replacement "bio prosthetic" S/P cardiac cath "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" Family History Mother Hypertension Brother Stroke Social History Smoking Status: Never smoker Second Hand Exposure: No; Hx Alcohol Use: No Hx Substance Use: No Preferred Language: [place]an Communication Ability: Effective Visual Impairment: Partially Limited Budget Examiner Required: No Beliefs That Will Affect Care: None marital status: Current Living Situation: Spouse Current Living Situation Comment: lives with Vannesa and six dogs in three story home. How many Children do You have: 4 Feels Safe at Home: Yes Assistive Devices: Walker Review of Systems A total of 10 systems reviewed and were otherwise negative Physical Exam Vital Signs Vital Signs - 24 hr 02/09/21 17:43 02/09/21 17:50 02/09/21 17:55 Temperature 36.7 C Temperature Source Oral Pulse Rate 75 80 79 Pulse Rate from SpO2 Sensor 78 79 Respiratory Rate 35 H 29 H 18 Respiratory Effort / Characteristics Non-Labored Respiratory Depth Normal Blood Pressure 113/68 113/67 Blood Pressure Mean 83 82 Pulse Oximetry 94 94 92 Oxygen Delivery Method Room Air Sepsis Recent Fever Within 48 Hours No Sepsis New/Unexplained Change in Mental Status No Sepsis Action Taken by Nursing No Action Required 02/09/21 18:00 02/09/21 18:07 02/09/21 18:10 Temperature Temperature Source Pulse Rate 91 H 78 76 Pulse Rate from SpO2 Sensor 79 78 84 Respiratory Rate 24 46 H 29 H Respiratory Effort / Characteristics Respiratory Depth Blood Pressure 114/73 Blood Pressure Mean 86 Pulse Oximetry 93 93 93 Oxygen Delivery Method Sepsis Recent Fever Within 48 Hours Sepsis New/Unexplained Change in Mental Status Sepsis Action Taken by Nursing 02/09/21 18:15 02/09/21 18:16 02/09/21 18:20 Temperature Temperature Source Pulse Rate 78 79 77 Pulse Rate from SpO2 Sensor 80 78 82 Respiratory Rate 27 H 25 H 27 H Respiratory Effort / Characteristics Respiratory Depth Blood Pressure 116/70 Blood Pressure Mean 85 Pulse Oximetry 93 93 93 Oxygen Delivery Method Sepsis Recent Fever Within 48 Hours Sepsis New/Unexplained Change in Mental Status Sepsis Action Taken by Nursing 02/09/21 18:30 02/09/21 18:40 02/09/21 18:45 Temperature Temperature Source Pulse Rate 86 79 80 Pulse Rate from SpO2 Sensor 90 80 87 Respiratory Rate 35 H 24 24 Respiratory Effort / Characteristics Respiratory Depth Blood Pressure 116/73 Blood Pressure Mean 87 Pulse Oximetry 92 94 95 Oxygen Delivery Method Sepsis Recent Fever Within 48 Hours Sepsis New/Unexplained Change in Mental Status Sepsis Action Taken by Nursing 02/09/21 18:50 02/09/21 19:00 02/09/21 19:01 Temperature Temperature Source Pulse Rate 80 83 77 Pulse Rate from SpO2 Sensor 81 83 80 Respiratory Rate 22 23 19 Respiratory Effort / Characteristics Respiratory Depth Blood Pressure 124/76 Blood Pressure Mean 92 Pulse Oximetry 93 93 93 Oxygen Delivery Method Sepsis Recent Fever Within 48 Hours Sepsis New/Unexplained Change in Mental Status Sepsis Action Taken by Nursing 02/09/21 19:10 02/09/21 19:15 02/09/21 19:20 Temperature Temperature Source Pulse Rate 75 77 79 Pulse Rate from SpO2 Sensor 81 78 80 Respiratory Rate 32 H 25 H 25 H Respiratory Effort / Characteristics Respiratory Depth Blood Pressure 104/69 Blood Pressure Mean 80 Pulse Oximetry 92 95 93 Oxygen Delivery Method Sepsis Recent Fever Within 48 Hours Sepsis New/Unexplained Change in Mental Status Sepsis Action Taken by Nursing 02/09/21 19:30 02/09/21 19:31 02/09/21 19:40 Temperature Temperature Source Pulse Rate 80 78 76 Pulse Rate from SpO2 Sensor 83 80 78 Respiratory Rate 31 H 35 H 22 Respiratory Effort / Characteristics Respiratory Depth Blood Pressure 110/71 Blood Pressure Mean 84 Pulse Oximetry 92 92 95 Oxygen Delivery Method Sepsis Recent Fever Within 48 Hours Sepsis New/Unexplained Change in Mental Status Sepsis Action Taken by Nursing 02/09/21 19:50 02/09/21 20:00 02/09/21 20:10 Temperature Temperature Source Pulse Rate 76 95 H 87 Pulse Rate from SpO2 Sensor 77 77 82 Respiratory Rate 24 30 H 33 H Respiratory Effort / Characteristics Respiratory Depth Blood Pressure Blood Pressure Mean Pulse Oximetry 92 92 94 Oxygen Delivery Method Sepsis Recent Fever Within 48 Hours Sepsis New/Unexplained Change in Mental Status Sepsis Action Taken by Nursing 02/09/21 20:15 02/09/21 20:20 02/09/21 20:30 Temperature Temperature Source Pulse Rate 78 77 75 Pulse Rate from SpO2 Sensor 84 78 76 Respiratory Rate 25 H 24 26 H Respiratory Effort / Characteristics Respiratory Depth Blood Pressure 113/70 116/66 Blood Pressure Mean 84 82 Pulse Oximetry 94 94 93 Oxygen Delivery Method Sepsis Recent Fever Within 48 Hours Sepsis New/Unexplained Change in Mental Status Sepsis Action Taken by Nursing 02/09/21 20:31 02/09/21 20:40 02/09/21 20:45 Temperature Temperature Source Pulse Rate 74 74 73 Pulse Rate from SpO2 Sensor 75 75 74 Respiratory Rate 22 16 15 Respiratory Effort / Characteristics Respiratory Depth Blood Pressure 113/76 Blood Pressure Mean 88 Pulse Oximetry 95 95 96 Oxygen Delivery Method Sepsis Recent Fever Within 48 Hours Sepsis New/Unexplained Change in Mental Status Sepsis Action Taken by Nursing 02/09/21 20:50 02/09/21 21:00 02/09/21 21:01 Temperature Temperature Source Pulse Rate 75 77 74 Pulse Rate from SpO2 Sensor 78 80 75 Respiratory Rate 19 19 17 Respiratory Effort / Characteristics Respiratory Depth Blood Pressure 100/68 Blood Pressure Mean 78 Pulse Oximetry 97 93 95 Oxygen Delivery Method Sepsis Recent Fever Within 48 Hours Sepsis New/Unexplained Change in Mental Status Sepsis Action Taken by Nursing 02/09/21 21:10 02/09/21 21:15 Temperature Temperature Source Pulse Rate 92 H 96 H Pulse Rate from SpO2 Sensor 98 H 96 H Respiratory Rate 26 H 20 Respiratory Effort / Characteristics Respiratory Depth Blood Pressure 118/75 Blood Pressure Mean 89 Pulse Oximetry 92 91 Oxygen Delivery Method Sepsis Recent Fever Within 48 Hours Sepsis New/Unexplained Change in Mental Status Sepsis Action Taken by Nursing CONSTITUTIONAL/VITAL SIGNS: Reviewed / noted above. GENERAL: Non-toxic in appearance. Generalized weakness. INTEGUMENTARY: Warm, dry, and [place]. HEAD: Normocephalic. EYES: without scleral icterus or trauma. ENT/OROPHARYNX: clear and moist. LYMPHADENOPATHY/NECK: Is supple without lymphadenopathy or meningismus. RESPIRATORY: Lungs clear and equal. CARDIOVASCULAR: Regular rate and rhythm. GI/ABDOMEN: Soft and nontender. No organomegaly or pulsatile mass. No rebound or guarding. Normal bowel sounds. EXTREMITIES: Warm and well perfused. BACK: No CVA tenderness. NEUROLOGICAL: Intact without focal deficits. PSYCHIATRIC: normal affect. MUSCULOSKELETAL: Normally developed with good muscle tone. TRIAGE NURSING DOCUMENTATION REVIEWED. Course Administered Medications Discontinued Medications Dextrose (Dextrose 50% 50 Ml Syringe) 50 ml IV NOW ONE Stop: 02/09/21 20:51 Last Admin: 02/09/21 21:05 Dose: 50 ml Documented by: [id number] Calcium Gluconate () 1,000 mg in 60 mls @ 240 mls/hr IV NOW STA Stop: 02/09/21 21:04 Last Infusion: 02/09/21 21:28 Dose: 240 mls/hr Documented by: [id number] Admin: 02/09/21 21:01 Dose: 240 mls/hr Documented by: [id number] Insulin Human Regular (Novolin-R Insulin Per Unit Charge) 10 units IV NOW STA Stop: 02/09/21 20:51 Last Admin: 02/09/21 21:01 Dose: 10 units Documented by: [id number] Cosigned by: [id number] Ondansetron HCl (Ondansetron Inj 2 Mg/Ml 2 Ml Vial) 4 mg IV NOW STA Stop: 02/09/21 18:07 Last Admin: 02/09/21 18:11 Dose: 4 mg Documented by: [id number] Sodium Bicarbonate (Sodium Bicarb 8.4% Inj 50 Meq/50 Ml Syr) 50 meq IV NOW STA Stop: 02/09/21 20:51 Last Admin: 02/09/21 21:00 Dose: 50 meq Documented by: [id number] Critical Care Time Critical Care Time: Yes Total Critical Care Time: 40 I have personally spent 40 minutes of critical care time in the direct ma nagement of this patient. This includes bedside care, interpretation of diagnostic studies, and testing, discussion with consultants, patient, and family members, and other required patient management activities. This 40 minutes is in excess of all separately billable procedures. Medical Decision Making Differential Diagnosis Differential includes acute coronary syndrome, myocardial infarction, CVA, TIA, anemia, infection, pneumonia, UTI, pyelonephritis, poor nutrition, dehydration, electrolyte disturbance,hypoglycemia. Medical Records Attestation: I reviewed the patient's medical records. Home Medications Current Medication List: was personally reviewed by me Laboratory Data Attestation: I reviewed the patient's lab results. Result diagrams: 02/09/21 20:03 02/09/21 20:03 Lab Results 02/09/21 02/09/21 02/09/21 Range/Units 18:07 18:07 20:03 WBC 15.37 H (4.8-10.8) K/uL RBC 3.21 L (4.7-6.1) M/uL Hgb 11.6 L (14.0-18.0) g/dL Hct 34.6 L (42-52) % MCV 107.8 H (80-100) fL MCH 36.1 H (25-34) pg MCHC 33.5 (32-36) g/dL RDW Std Deviation 69.8 H (36.4-46.3) fL RDW Coeff of Elvia 17.5 H (11.5-14.5) % Plt Count 116 L (130-400) K/uL MPV 13.0 H (7.4-10.4) fL Immature Gran % (Auto) 0.3 % Neut % (Auto) 85.4 % Lymph % (Auto) 5.3 % [place] % (Auto) 8.9 % Eos % (Auto) 0.0 % Baso % (Auto) 0.1 % Neut # (Auto) 13.13 H (1.4-6.5) K/uL Lymph # (Auto) 0.81 L (1.2-3.4) K/uL [place] # (Auto) 1.37 H (0.11-0.59) K/uL Eos # (Auto) 0.00 (0-0.5) K/uL Baso # (Auto) 0.01 (0-0.2) K/uL Immature Gran # (Auto) 0.05 H (0.00-0.02) K/uL Absolute Nucleated RBC 0.03 H (0-0) K/uL Nucleated RBC % (auto) 0.2 % Platelet Estimate Decreased L (Normal) PT (9.0-12.0) Seconds INR (0.9-1.1) Sodium (136-145) mmol/L Potassium (3.5-5.1) mmol/L Chloride (98-107) mmol/L Carbon Dioxide (21-32) mmol/L Anion Gap (3-11) BUN (7-18) mg/dl Creatinine (0.6-1.4) mg/dl Est Cr Clr Drug Dosing ml/min Est GFR ( Amer) ml/min Est GFR (Non-Af Amer) ml/min BUN/Creatinine Ratio (10-20) Glucose (70-99) mg/dl POC Glucose (70-99) mg/dl Lactate (0.4-2.0) mmol/L Calcium (8.5-10.1) mg/dl Magnesium (1.8-2.4) mg/dl Total Bilirubin (0.2-1) mg/dl AST (15-37) U/L ALT (12-78) U/L Alkaline Phosphatase (45-117) U/L Total Creatine Kinase (39-308) U/L Troponin I (0-0.045) ng/ml Total Protein (6.4-8.2) gm/dl Albumin (3.4-5.0) gm/dl Globulin (2.5-4.0) gm/dl Albumin/Globulin Ratio (0.9-2) TSH (0.300-4.500) uIu/ml COVID-19 Eval Order Covid19 at [facility] SARS-CoV-2 (PCR) NEGATIVE (Negative) 02/09/21 02/09/21 02/09/21 Range/Units 20:03 20:03 20:03 WBC (4.8-10.8) K/uL RBC (4.7-6.1) M/uL Hgb (14.0-18.0) g/dL Hct (42-52) % MCV (80-100) fL MCH (25-34) pg MCHC (32-36) g/dL RDW Std Deviation (36.4-46.3) fL RDW Coeff of Elvia (11.5-14.5) % Plt Count (130-400) K/uL MPV (7.4-10.4) fL Immature Gran % (Auto) % Neut % (Auto) % Lymph % (Auto) % [place] % (Auto) % Eos % (Auto) % Baso % (Auto) % Neut # (Auto) (1.4-6.5) K/uL Lymph # (Auto) (1.2-3.4) K/uL [place] # (Auto) (0.11-0.59) K/uL Eos # (Auto) (0-0.5) K/uL Baso # (Auto) (0-0.2) K/uL Immature Gran # (Auto) (0.00-0.02) K/uL Absolute Nucleated RBC (0-0) K/uL Nucleated RBC % (auto) % Platelet Estimate (Normal) PT 29.4 H (9.0-12.0) Seconds INR 3.2 H (0.9-1.1) Sodium 127 L (136-145) mmol/L Potassium 6.9 H* (3.5-5.1) mmol/L Chloride 90 L (98-107) mmol/L Carbon Dioxide 20 L (21-32) mmol/L Anion Gap 18.0 H (3-11) BUN 102 H (7-18) mg/dl Creatinine 8.44 H* (0.6-1.4) mg/dl Est Cr Clr Drug Dosing 7.2 ml/min Est GFR ( Amer) 6.0 ml/min Est GFR (Non-Af Amer) 5.2 ml/min BUN/Creatinine Ratio 12.1 (10-20) Glucose 283 H (70-99) mg/dl POC Glucose (70-99) mg/dl Lactate 3.7 H* (0.4-2.0) mmol/L Calcium 8.8 (8.5-10.1) mg/dl Magnesium 3.0 H (1.8-2.4) mg/dl Total Bilirubin 0.5 (0.2-1) mg/dl AST 92 H (15-37) U/L ALT 43 (12-78) U/L Alkaline Phosphatase 136 H (45-117) U/L Total Creatine Kinase 689 H (39-308) U/L Troponin I 21.800 H* (0-0.045) ng/ml Total Protein 8.5 H (6.4-8.2) gm/dl Albumin 2.7 L (3.4-5.0) gm/dl Globulin 5.7 H (2.5-4.0) gm/dl Albumin/Globulin Ratio 0.5 L (0.9-2) TSH 2.410 (0.300-4.500) uIu/ml COVID-19 Eval Order SARS-CoV-2 (PCR) (Negative) 02/09/21 Range/Units 21:59 WBC (4.8-10.8) K/uL RBC (4.7-6.1) M/uL Hgb (14.0-18.0) g/dL Hct (42-52) % MCV (80-100) fL MCH (25-34) pg MCHC (32-36) g/dL RDW Std Deviation (36.4-46.3) fL RDW Coeff of Elvia (11.5-14.5) % Plt Count (130-400) K/uL MPV (7.4-10.4) fL Immature Gran % (Auto) % Neut % (Auto) % Lymph % (Auto) % [place] % (Auto) % Eos % (Auto) % Baso % (Auto) % Neut # (Auto) (1.4-6.5) K/uL Lymph # (Auto) (1.2-3.4) K/uL [place] # (Auto) (0.11-0.59) K/uL Eos # (Auto) (0-0.5) K/uL Baso # (Auto) (0-0.2) K/uL Immature Gran # (Auto) (0.00-0.02) K/uL Absolute Nucleated RBC (0-0) K/uL Nucleated RBC % (auto) % Platelet Estimate (Normal) PT (9.0-12.0) Seconds INR (0.9-1.1) Sodium (136-145) mmol/L Potassium (3.5-5.1) mmol/L Chloride (98-107) mmol/L Carbon Dioxide (21-32) mmol/L Anion Gap (3-11) BUN (7-18) mg/dl Creatinine (0.6-1.4) mg/dl Est Cr Clr Drug Dosing ml/min Est GFR ( Amer) ml/min Est GFR (Non-Af Amer) ml/min BUN/Creatinine Ratio (10-20) Glucose (70-99) mg/dl POC Glucose 284 H (70-99) mg/dl Lactate (0.4-2.0) mmol/L Calcium (8.5-10.1) mg/dl Magnesium (1.8-2.4) mg/dl Total Bilirubin (0.2-1) mg/dl AST (15-37) U/L ALT (12-78) U/L Alkaline Phosphatase (45-117) U/L Total Creatine Kinase (39-308) U/L Troponin I (0-0.045) ng/ml Total Protein (6.4-8.2) gm/dl Albumin (3.4-5.0) gm/dl Globulin (2.5-4.0) gm/dl Albumin/Globulin Ratio (0.9-2) TSH (0.300-4.500) uIu/ml COVID-19 Eval Order SARS-CoV-2 (PCR) (Negative) Imaging Data Radiologist's Impression: Chest X-Ray 02/09/21 18:06 SINGLE VIEW CHEST CLINICAL HISTORY: Generalized weakness. FINDINGS: An AP, portable, semierect chest radiograph is compared to study dated 01/25/2021. Correlation is made with chest CT dated 05/10/2019. The examination is degraded by portable technique, apical lordotic positioning, and patient rotation. The patient is status post midline sternotomy. The heart is enlarged noting atherosclerotic calcification of the thoracic aorta. There is pulmonary vascular congestion. Bilateral interstitial airspace opacities likely represent pulmonary edema. There is volume loss in the right lung. Scarring/atelectasis is noted at the lung bases. There are trace pleural effusions. No pneumothorax is seen. The skeletal structures are osteopenic. The bony thorax is grossly intact. IMPRESSION: 1. Cardiomegaly with evidence of congestive failure and mild interstitial edema. 2. Trace pleural effusions. ACT 112: Negative or not required by law. Electronically signed by: Guilherme Cummings M.D. 02/09/2021 6:53 PM ECG Data Attestation: I personally reviewed and interpreted this ECG as follows: Indication: + weakness Rate (beats per minute): 76 Rhythm: + normal sinus ECG Intervals/blocks: + First degree AV block ECG Findings: + Other (Wide QRS complex) Additional Comments: Second EKG after treatment for hyperkalemia, the patient's EKG showed a sinus rhythm at a rate of 98 with a first-degree AV block. QRS is improved to 130 from 200 on the previous EKG. MDM Narrative Patient presents with generalized weakness, not feeling well, nausea and some chronic back pain. He missed dialysis yesterday. Last dialysis was on Sunday. Chest x-ray shows congestive heart failure. INR 3.2 on Coumadin. White blood cell count was 15. Hemoglobin is 11.6. Lactic acid was 3.7. Pot assium is 6.9. Sodium is 127. BUN is 102. Creatinine is 8. Troponin is 21.8. EKG shows sinus rhythm at a rate of 76 with a widened QRS complex and right bundle branch block. The patient was treated with calcium gluconate 1 g IV, dextrose 50 mL IV, 10 units of IV insulin IV, IV Zofran, patiromer, and sodium bicarbonate. The patient's EKG narrowed from 200 down to 130 after treatment for hyperkalemia. I spoke with nephrology here. The nephrology nurse is going to come in to dialyze the patient. I spoke with Dr. Marshall who is admitting the patient to the ICU. Of note, the patient elevated troponin has been addressed in the past. In August 2020, the patient did not want cardiac catheterization for further evaluation of his coronary arteries with an elevated troponin at that time. Impression & Plan Acute hyperkalemia, Elevated troponin, Weakness Discharge Plan Visit Data Chief Complaint: Leg Weakness, Bilateral Stated Complaint: WEAKNESS ED Provider: Mishock,Curt Discharge Problem: Acute hyperkalemia, Elevated troponin, Weakness Patient Disposition: Being Evaluated by Hospitalist Forms Stand Alone Forms: My [facility] Prescriptions Prescriptions: No Action omega 3-xaa-weo-fish oil [Fish Oil] 1,000 mg (120 mg-180 mg) Capsule 1 cap PO DAILY RF: 0 Nephro-Neeraj 0.8 mg tablet 1 tab PO DAILY RF: 0 buprenorphine 7.5 mcg/hour patch weekly 1 patch topical WK RF: 0 ondansetron HCl 4 mg tablet 4 mg PO Q6 PRN (Reason: Nausea) RF: 0 vancomycin 125 mg capsule 125 mg PO DAILY RF: 0 diphenoxylate-atropine 2.5-0.025 mg tablet 1 - 2 tab PO UD MDD 8 tabs PRN (Reason: Diarrhea) RF: 0 menthol [Ice Blue Gel] 2 % Gel 1 applic TOPICAL UD PRN (Reason: Pain) RF: 0 fluticasone propionate 50 mcg/actuation [place],Suspension 1 spray INTRANASAL DAILY PRN (Reason: allergies) RF: 0 atorvastatin 40 mg Tablet 40 mg PO QAM Qty: 30 RF: 5 nitroglycerin 0.4 mg tablet, sublingual 0.4 mg sublingual ONCE PRN (Reason: chest pain) Qty: 25 RF: 1 acetaminophen 500 mg Tablet 1,000 mg PO Q8 PRN (Reason: Pain) RF: 0 cholecalciferol (vitamin D3) [Vitamin D3] 1,000 unit Capsule 1,000 unit PO HS RF: 0 docusate sodium 100 mg Tablet 100 mg PO BID PRN (Reason: Constipation) RF: 0 lidocaine-prilocaine 2.5-2.5 % cream 1 applic topical 3XWK RF: 0 warfarin 5 mg tablet 5 mg PO UD RF: 0 sevelamer carbonate [Renvela] 800 mg Tablet 800 mg PO BID RF: 0 sevelamer carbonate [Renvela] 800 mg Tablet 1,600 mg PO DAILYBD RF: 0 metoprolol succinate 25 mg tablet extended release 24 hr 25 mg PO DAILY RF: 0 Referrals Referrals: Zach Gooden MD [Primary Care Provider] -
--- NOTE | 2021-02-09 18:54 | XRay Report ---
SINGLE VIEW CHEST CLINICAL HISTORY: Generalized weakness. FINDINGS: An AP, portable, semierect chest radiograph is compared to study dated 01/25/2021. Correlati on is made with chest CT dated 05/10/2019. The examination is degraded by portable technique, apical l ordotic positioning, and patient rotation. The patient is status post midline sternotomy. The heart i s enlarged noting atherosclerotic calcification of the thoracic aorta. There is pulmonary vascular co ngestion. Bilateral interstitial airspace opacities likely represent pulmonary edema. There is volume loss in the right lung. Scarring/atelectasis is noted at the lung bases. There are trace pleural ef fusions. No pneumothorax is seen. The skeletal structures are osteopenic. The bony thorax is grossly intact. IMPRESSION: 1. Cardiomegaly with evidence of congestive failure and mild interstitial edema. 2. Trace pleural effusions. ACT 112: Negative or not required by law. Electronically signed by: Guilherme Cummings M.D. 02/09/2021 6:53 PM
[2021-02-09 20:27] LABS: INR 3.2 (0.9-1.1); Prothrombin Time 29.4 Seconds (9.0-12.0)
[2021-02-09 20:42] LABS: Hematocrit (blood only) 34.6 % (42-52); Hemoglobin 11.6 g/dL (14.0-18.0); Mean Corpuscular Hemoglobin 36.1 pg (25-34); Mean Corpuscular Hgb Conc 33.5 g/dL (32-36); Mean Corpuscular Volume 107.8 fL (80-100); Nucleated RBC # (auto) 0.03 K/uL (0-0); Nucleated RBC % (auto) 0.2 %; Platelet Count 116 K/uL (130-400); RDW Coefficient of Variation 17.5 % (11.5-14.5); RDW Standard Deviation 69.8 fL (36.4-46.3); Red Blood Count 3.21 M/uL (4.7-6.1); White Blood Count 15.37 K/uL (4.8-10.8)
[2021-02-09 20:43] LABS: Basophils # (auto) 0.01 K/uL (0-0.2); Basophils % (auto) 0.1 %; Immature Granulocytes # (auto) 0.05 K/uL (0.00-0.02); Immature Granulocytes % (auto) 0.3 %; Lymphocytes # (auto) 0.81 K/uL (1.2-3.4); Lymphocytes % (auto) 5.3 %; Monocytes # (auto) 1.37 K/uL (0.11-0.59); Monocytes % (auto) 8.9 %; Neutrophils # (auto) 13.13 K/uL (1.4-6.5); Neutrophils % (auto) 85.4 %; Platelet Estimate Decreased (Normal)
[2021-02-09 20:48] LABS: Albumin Globulin Ratio 0.5 (0.9-2); Albumin Level 2.7 gm/dl (3.4-5.0); BUN Creatinine Ratio 12.1 (10-20); Bilirubin,Total 0.5 mg/dl (0.2-1); Calcium 8.8 mg/dl (8.5-10.1); Creatinine Clr Calc Pharmacy 7.2 ml/min; Est GFR (Non-African American) 5.2 ml/min; Globulin 5.7 gm/dl (2.5-4.0); Potassium 6.9 mmol/L (3.5-5.1); Thyroid Stimulating Hormone 2.41 uIu/ml (0.300-4.500); Total Protein 8.5 gm/dl (6.4-8.2); Troponin I 21.8 ng/ml (0-0.045)
[2021-02-09] MEDS ORDERED: SODIUM BICARB 8.4% INJ 50 MEQ/50 ML SYR IV STA (20:50)
[2021-02-09] MEDS ORDERED: DEXTROSE 50% 50 ML SYRINGE IV ONE (20:50)
[2021-02-09] MEDS ORDERED: NovoLIN-R INSULIN PER UNIT CHARGE IV STA (20:50)
[2021-02-09] MEDS ORDERED: CALCIUM GLUCONATE 1,000 MG/60 ML BAG IV STA (20:50)
[2021-02-09] MEDS ORDERED: ICU PROTOCOL FOR HYPERGLYCEMIA PRN (23:40)
[2021-02-09] MEDS ORDERED: WARFARIN SOD 5 MG TAB PO SCH (23:40)
[2021-02-09] MEDS ORDERED: FLUTICASONE PROPIONATE NA SPR 16 GM BTL PRN (23:40)
[2021-02-09] MEDS ORDERED: MENTHOL 2% TOP PRN (23:40)
[2021-02-09] MEDS ORDERED: NITROGLYCERIN SL 0.4 MG/TAB TAB SL PRN (23:40)
[2021-02-09 23:43] LABS: BUN Creatinine Ratio 12.3 (10-20); Calcium 8.3 mg/dl (8.5-10.1); Creatinine Clr Calc Pharmacy 7.2 ml/min; Est GFR (Non-African American) 5.2 ml/min; Potassium 6.3 mmol/L (3.5-5.1); Troponin I 23.7 ng/ml (0-0.045)
[2021-02-09] MEDS ORDERED: HEPARIN SODIUM/DEXTROSE 25,000 UNITS/500 ML BAG IV SCH (23:45)
--- NOTE | 2021-02-09 23:47 | Critical Care Consultation ---
Date of Consultation February 09, 2021 Assessment & Plan (1) Admitted to intensive care unit: Reason Critically Ill: 85-year-old male with ESRD presents to the ICU in need of emergent dialysis after missing dialysis session yesterday. Patient has multiple lab abnormalities including elevated potassium, troponin, CPK, and lactate and metabolic acidosis. Neuro - [facility] ICU: Negative Chronic back painlidocaine topical patch Cardiac - NSTEMIpatient with elevated troponin of 20, now up trended to 23. No chest pain, no ST elevations on EKG. -Patient was admitted with NSTEMI in August where his troponin peaked at 80, he refused cardiac catheterization at that time. -Last EF 40 to 45% in August, will repeat study on this admission -We will start low-dose heparin drip without bolus as patient is therapeutically anticoagulated on warfarin -Trend troponins repeat -Daily EKG -Allergy to ASA. Continue statin -Cardiology consulted, follow-up recommendations -Continuous monitor on telemetry Proximal A. fibcontinue MTP -Transitioning Coumadin to heparin drip Respiratory - No history of pulmonary disease, currently maintaining oxygen saturation on room air. No respiratory distress. Chest x-ray with cardiomegaly with evidence of congestive failure and mild interstitial edema and trace pleural effusions. Receiving dialysis for fluid removal Continuous monitoring on pulse ox GI - Heart healthy diabetic diet RENAL/LYTES - ESRD/hyperkalemia/metabolic acidosislast dialysis session Sunday, presents with potassium 6.8, pH 7.20, LA 3.2, creatinine of 8, anion gap 16 -Nephrology consulted and patient to undergo emergent dialysis this evening -Received calcium, bicarb, and insulin in dextrose in ED, will repeat BMP -We will follow up repeat lab studies after dialysis. -Continue sevelamer - Anuric ENDO - History of diabetes?Does not take No history of thyroid disease, TSH within normal limits HEME - H&H stable with hemoglobin 11, consistent with prior studies. Monitor routine CBCs and transfuse if indicated. ID - Sepsis?Patient with WBC 15, elevated lactate 3.2. Mildly elevated pro calcitonin although he has ESRD. Afebrile -Patient reports multiple loose stools in the past 48 hours and has history of recurrent C. difficile -No signs of infectious disease on chest imaging -Unable to obtain UA due to anuria -COVID-19 negative -Blood cultures pending -Started on oral vancomycin and Zosyn empirically LINES/IV ACCESS - Peripheral IVs DVT PROPHYLAXIS - SCDs, currently therapeutic on Coumadin and transitioning to heparin drip CODE STATUS: Patient states that he would like aggressive measures and is currently full code. However this is contradictory to prior admission in August where he was seen by palliative care and was DNR/DNI. We will keep full code for now per patient's wishes, but will need further follow-up. I have personally spent 45 minutes of critical care time in the direct management of this patient. This is a life/limb threatening event. This includes time spent evaluating patient, direct bedside care, chart review, placing orders, interpretation of diagnostic studies, discussion with consultants, patient, and family members, as well as other required patient management activities. This time is exclusive of all separately billable procedures, and teaching time and separate from and in addition to any other critical care service time. Thank you for allowing us to participate in the care of this patient. Please refer to my attending physician's documentation for any further recommendations. (2) Acute hyperkalemia: (3) Back pain: (4) Elevated troponin: (5) CHF (congestive heart failure): (6) Diabetes mellitus type 2 with complications: (7) Non-ST elevation (NSTEMI) myocardial infarction: (8) Weakness: (9) Anemia: (10) CAD (coronary artery disease): (11) Recurrent Clostridium difficile diarrhea: (12) PAF (paroxysmal atrial fibrillation): (13) GERD (gastroesophageal reflux disease): (14) ESRD (end stage renal disease) on dialysis: (15) Metabolic acidosis: History of Present Illness History of Present Illness Patient is a 85-year-old male with PMH including chronic back pain, CHF (EF 35 to 40%), CAD, atrial fibrillation (on Coumadin), DM type II, and ESRD on dialysis. He presents to the emergency department earlier this evening with complaints of generalized weakness and stating that he just not feel well. He reported having some nausea earlier but denied vomiting. Patient states that yesterday and this morning he was having loose stools. He did not go to his dialysis session yesterday because he was not feeling well, and reports his last dialysis session was on Sunday. In the emergency department, patient was found to be severely hyperkalemic with potassium 6.8, and had elevated troponin, lactate, CPK and metabolic acidosis. INR was therapeutic at 3.2. He was also noted to have leukocytosis with WBC of 15. EKG showed sinus rhythm with a widened QRS complex and RBBB. His troponin was elevated at 20 but the patient is not having chest pain, and no ST elevations on EKG. He also refused cardiac catheterization in August per prior records. Patient was given sodium bicarb push, calcium gluconate, and insulin and D50 in the ED. Nephrology was consulted and plan was made to transfer patient to ICU, where he is to receive emergent dialysis this evening. On exam patient is alert and oriented and appears comfortable at rest. He reports feeling fatigue and generalized weakness. He denies any headache or dizziness, cough or sore throat, shortness of breath, chest pain or palpitations, abdominal pain. He reports prior nausea which was relieved with Zofran, and denies vomiting. He reports having loose stools for the past couple of days which have since subsided with last episode at 10 AM this morning. Of note, patient does have history of recurrent C. difficile. Will attempt to obtain sample and place on contact precautions in the meantime. Allergies Allergy/AdvReac Type Severity Reaction Status Date / Time aspirin Allergy Unknown . Verified 02/09/21 19:29 salicylates Allergy Unknown UNKNOWN Verified 02/09/21 19:29 Home Medications Medication Instructions Recorded Confirmed Type cholecalciferol (vitamin D3) 1,000 unit PO HS 06/14/18 02/09/21 History [Vitamin D3] docusate sodium 100 mg PO BID PRN 03/18/19 02/09/21 History omega 2-fdg-ntd-fish oil [Fish Oil] 1 cap PO DAILY 05/21/19 02/09/21 History lidocaine-prilocaine 1 applic TOPICAL 3XWK 11/13/19 02/09/21 History sevelamer carbonate [Renvela] 1,600 mg PO DAILYBD 11/13/19 02/09/21 History sevelamer carbonate [Renvela] 800 mg PO BID 11/13/19 02/09/21 History warfarin 5 mg PO UD 11/13/19 02/09/21 History Nephro-Neeraj 1 tab PO DAILY 09/07/20 02/09/21 History buprenorphine 1 patch TOPICAL WK 09/07/20 02/09/21 History diphenoxylate-atropine 1 - 2 tab PO UD PRN MDD 8 tabs 09/07/20 02/09/21 History fluticasone propionate 1 spray INTRANASAL DAILY PRN 09/07/20 02/09/21 History menthol [Ice Blue Gel] 1 applic TOPICAL UD PRN 09/07/20 02/09/21 History ondansetron HCl 4 mg PO Q6 PRN 09/07/20 02/09/21 History vancomycin 125 mg PO DAILY 09/07/20 02/09/21 History atorvastatin 40 mg PO QAM #30 tab 09/10/20 02/09/21 Rx nitroglycerin 0.4 mg SUBLINGUAL ONCE PRN #25 tab 09/10/20 02/09/21 Rx acetaminophen 1,000 mg PO Q8 PRN 10/06/20 02/09/21 History metoprolol succinate 12.5 mg PO HS 02/09/21 02/09/21 History Patient History Medical History 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 Aortic valve insufficiency Atrial flutter CAD (coronary artery disease) s/p NSTEMI 09/07/20 CHF (congestive heart failure) mixed systolic + diastolic; underlying ischemic heart disease echo 09/07/20 LVEF 35-40% Diabetes mellitus type 2 with complications Do not resuscitate status DVT (deep venous thrombosis) " 01/13/09 left leg " Dyslipidemia ESRD (end stage renal disease) on dialysis GERD (gastroesophageal reflux disease) Gram-positive bacteremia HTN (hypertension) Hx of amaurosis fugax "01/27/09, OD " PMR (polymyalgia rheumatica) 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 Pulmonary embolus Type 2 diabetes mellitus Surgical History H/O carotid endarterectomy "2008" H/O removal of testicle H/O superior vena cava filter placement History of hydrocelectomy History of total hip replacement S/P ablation of atrial flutter S/P aortic valve replacement "bio prosthetic" S/P cardiac cath "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" Family History Mother Hypertension Brother Stroke Social History Smoking Status: Never smoker Second Hand Exposure: No; Hx Alcohol Use: No Hx Substance Use: No Preferred Language: Irish Communication Ability: Effective Visual Impairment: Partially Limited [employer] Estate Account Executive Required: No Beliefs That Will Affect Care: None marital status: Current Living Situation: Spouse Current Living Situation Comment: lives with Vannesa and six dogs in three [place] home. How many Children do You have: 4 Other Information That Helps Us Care for You: No Feels Safe at Home: Yes Safety Concerns: Feels Safe At This Time Assistive Devices: Walker Review of Systems Review of Systems: All systems reviewed & are unremarkable except as noted in HPI & below Physical Exam Constitutional: + frail appearing, cooperative and comfortable Eyes: PERRL, conjunctivae normal, anicteric sclerae ENMT: external ear and nose normal, oropharynx normal Neck: trachea midline, no thyromegaly Respiratory: normal respiratory effort, lungs clear to auscultation Cardiovascular: RRR, no murmur, no edema Heart Sounds: normal S1 and normal S2 Vessels: no JVD +4 pitting lower extremity edema bilateral Gastrointestinal (Abdomen): normal bowel sounds, soft, nontender, no hepatosplenomegaly Musculoskeletal: no cyanosis or clubbing, extremities motor strength 5/5 Skin: no rashes, warm and dry Neurologic: PERRL, EOMI, accommodation nl, no face palsy, no dysarthria Psychiatric: A+Ox3, euthymic affect Results & Data Results & Data ([facility]) Vital Signs (Past 12 Hours) Vital Signs Temp Pulse Resp BP Pulse Ox 02/09/21 23:10 89 21 94 02/09/21 23:01 87 18 95 02/09/21 23:00 87 17 123/83 93 02/09/21 22:50 86 23 94 02/09/21 22:45 86 26 H 124/79 93 02/09/21 22:40 91 H 30 H 93 02/09/21 22:31 91 H 23 95 02/09/21 22:30 90 24 123/83 93 02/09/21 22:20 93 H 19 95 02/09/21 22:15 90 22 130/82 93 02/09/21 22:10 91 H 36 H 95 02/09/21 22:01 92 H 23 96 02/09/21 22:00 93 H 24 110/81 95 02/09/21 21:50 95 H 17 95 05 21:45 97 H 23 138/84 96 05 21:40 96 H 25 H 96 05 21:31 97 H 42 H 97 05 21:30 98 H 34 H 122/80 94 0521 21:20 97 H 22 94 0521 21:16 97 H 20 94 05 21:15 96 H 20 118/75 91 05 21:10 92 H 26 H 92 05 21:01 74 17 95 05 21:00 77 19 100/68 93 05 20:50 75 19 97 05 20:45 73 15 113/76 96 02/09/21 20:40 74 16 95 05 20:31 74 22 95 02/09/21 20:30 75 26 H 116/66 93 05 20:20 77 24 94 02/09/21 20:15 78 25 H 113/70 94 02/09/21 20:10 87 33 H 94 02/09/21 20:00 95 H 30 H 92 02/09/21 19:50 76 24 92 02/09/21 19:40 76 22 95 02/09/21 19:31 78 35 H 92 02/09/21 19:30 80 31 H 110/71 92 02/09/21 19:20 79 25 H 93 02/09/21 19:15 77 25 H 104/69 95 02/09/21 19:10 75 32 H 92 02/09/21 19:01 77 19 93 05 19:00 83 23 124/76 93 05 18:50 80 22 93 05 18:45 80 24 116/73 95 0521 18:40 79 24 94 05 18:30 86 35 H 92 02/09/21 18:20 77 27 H 93 05 18:16 79 25 H 93 05 18:15 78 27 H 116/70 93 0521 18:10 76 29 H 93 05 18:07 78 46 H 114/73 93 05 18:00 91 H 24 93 02/09/21 17:55 36.7 C 79 18 113/67 92 02/09/21 17:50 80 29 H 94 02/09/21 17:43 75 35 H 113/68 94 Coding Level of Care Code Critical Care 1st 30-74 mins Diagnoses Admitted to intensive care unit Z78.9 Acute hyperkalemia E87.5 Back pain M54.6 Back pain laterality: midline Back pain location: thoracic back pain Chronicity: unspecified Elevated troponin R77.8 CHF (congestive heart failure) I50.9 Diabetes mellitus type 2 with complications E11.8 Non-ST elevation (NSTEMI) myocardial infarction I21.4 Weakness R53.1 Anemia D64.9 CAD (coronary artery disease) I25.10 Recurrent Clostridium difficile diarrhea A04.71 PAF (paroxysmal atrial fibrillation) I48.0 GERD (gastroesophageal reflux disease) K21.9 ESRD (end stage renal disease) on dialysis N18.6; Z99.2 Metabolic acidosis E87.2 (1) Back pain Back pain laterality: midline Back pain location: thoracic back pain Chronicity: unspecified Qualified Code(s): M54.6 - Pain in thoracic spine
[2021-02-09] MEDS ORDERED: Heparin IV Adult Wt-Based Low-Dose *NO* Bolus Protocol ONE (23:56)
[2021-02-10] MEDS ORDERED: PIPERACILL/TAZOBAC CONSULT ACTIVE PRN
[2021-02-10] MEDS ORDERED: PIPERACILLIN/TAZOBACTAM 3.375 GM in DEXTROSE 5% 100 ML IV ONE (00:45)
[2021-02-10] MEDS: VANCOMYCIN HCL 125 MG/2.5ML SOLN PO SCH ×3 (00:50→05:21)
[2021-02-10] MEDS: RASPBERRY SYRUP 5 ML UDP PO SCH ×4 (00:50→17:22)
[2021-02-10] MEDS ORDERED: GLUCOSE 40% GEL 15 GM TUBE PO PRN (01:24)
[2021-02-10] MEDS ORDERED: GLUCOSE 10 TABS/TUBE PO PRN (01:24)
[2021-02-10] MEDS ORDERED: DEXTROSE 50% 50 ML SYRINGE IV PRN (01:24)
[2021-02-10] MEDS ORDERED: CARBOHYDRATES FOR HYPOGLYCEMIA PO PRN (01:24)
[2021-02-10] MEDS ORDERED: GLUCAGON FOR INJ 1 MG VIAL SQ PRN (01:24)
[2021-02-10] MEDS ORDERED: PHARMACY GLYCEMIC MGMT CONSULT PRN (01:46)
[2021-02-10] MEDS: INSULIN ASPART 100 UNITS/ML 3 ML PEN SC SCH ×5 (02:38→20:38)
--- NOTE | 2021-02-10 03:15 | History and Physical Report ---
DATE OF ADMISSION: 02/09/2021 CHIEF COMPLAINT: Hyperkalemia, nausea and diarrhea. HISTORY OF PRESENT ILLNESS: This is an 85-year-old male with past medical history significant for end-stage renal disease on hemodialysis, history of type 2 diabetes, CAD, paroxysmal atrial fibrillation, on Coumadin, history of atrial flutter status post ablation, chronic heart failure with preserved ejection fraction, history of aortic bioprosthetic valve replacement, history of hypertension, recurrent C. diff, on chronic vancomycin therapy, GERD, polymyalgia rheumatica, history of PE, status post IVC filter, history of right CEA. In August he had a non-ST elevated myocardial infarction with significant elevation of troponins, but the patient declined cardiac catheterization and was treated conservatively. At that time, he was started on Toprol-XL, on atorvastatin and Plavix. The patient was here again in October of this year with melena. No endoscopy was done. The patient improved. At that time, Coumadin was held, but again restarted. Today, again he comes back because he missed dialysis this Sunday because last couple of days he was having nausea, diarrhea several episodes, and was feeling weak, that is why he came here and he was found to have potassium of 6.9 and EKG showed widening QRS complex. Calcium gluconate, dextrose, insulin, and sodium bicarbonate were given in the ER. Repeat EKG showed narrowing of the QRS complex and shortening of the QTc. Currently resting comfortable and hemodynamically stable. Denies any chest pain. Denies any shortness of breath. Once in a while, he has cough. Denies any headache, no blurred vision, no earache, no runny nose. Appetite is not that great. No dysphagia. Has nausea, but no vomiting. No abdominal pain. He rarely makes some urine. Ongoing diarrhea for last 2 days. Chronic swelling in the legs, ambulates with a walker. Lives with his and his labs showed troponin of 23, lactic acid of 3.1, procalcitonin 0.8. SARS-CoV-2 PCR negative. Currently resting comfortably and hemodynamically stable. ALLERGIES: ASPIRIN AND SALICYLATES. PAST MEDICAL HISTORY: As mentioned above. PAST SURGICAL HISTORY: Carpal tunnel surgery, colonoscopy, drainage of rectal abscess, inferior vena cava placement, repair of hydrocele, replacement of bifascicular aortic valve, right carotid thrombectomy with patch, right total hip replacement. MEDICATIONS: The patient is on Tylenol 1000 mg p.o. q. 8 hours p.r.n., atorvastatin 40 mg p.o. a.m., buprenorphine 1 patch topically weekly, vitamin D 1000 units p.o. at bedtime, Lomotil 1-2 tablets p.o. p.r.n., Colace 100 mg p.o. b.i.d. p.r.n., Flonase 1 spray intranasal daily p.r.n., lidocaine, prilocaine 1 application topically 3 times a week, menthol 1 application topically q.o.d. p.r.n., Toprol-XL 12.5 mg p.o. at bedtime, Nephro-Neeraj 1 tablet p.o. daily, nitroglycerin 0.4 mg sublingual p.r.n., omega fish oil 1 capsule p.o. daily, Zofran 4 mg p.o. q. 6 hours p.r.n., Renvela 800 mg p.o. b.i.d., Renvela 600 mg p.o. dailyD, vancomycin 125 mg p.o. daily, Coumadin 5 mg as directed. FAMILY HISTORY: Significant for mother has chronic kidney disease; brother has stroke, hypertension; mother has hypertension. SOCIAL HISTORY: . No smoking, no alcohol, no drug use. REVIEW OF SYSTEMS: As per HPI. Rest of the review of systems negative. PHYSICAL EXAMINATION: GENERAL: The patient is of moderate build, not in acute distress. VITAL SIGNS: Temperature 36.6, pulse 102, respiratory rate 17, blood pressure 149/93, oxygen 96% on 2 liters. HEENT: Pupils equal, round, and reactive to light. Oral mucosa moist. NECK: No JVD, no neck masses. CARDIOVASCULAR: S1, S2 heard, regular rate and rhythm, no murmur, no gallop. RESPIRATORY SYSTEM: Normal AP diameter. No accessory muscle use. No wheezing, no crackles. ABDOMEN: Soft, bowel sounds present, nontender. No distention. CENTRAL NERVOUS SYSTEM: Cranial nerves II-XII grossly intact. Nonfocal. EXTREMITIES: Chronic lower extremity edema present with chronic skin changes. LABORATORY DATA: WBC 15.3, hemoglobin 11.6, hematocrit 34.6, platelets 116. PT 29.4, INR 3.2. Sodium 132, potassium 6.3, chloride 92, bicarbonate 23, BUN 103, creatinine 8.4, serum glucose 169, lactate 3.1, magnesium 3, total bilirubin 0.5, AST 92, ALT 43, alkaline phosphatase 136, total creatinine kinase 621. Troponin I of 23.7. Procalcitonin 0.8, TSH 2.4. MRSA negative. SARS-CoV-2 PCR negative. IMAGING DATA: Chest x-ray, cardiomegaly and mild congestive changes. EKG: Sinus rhythm with marked sinus arrhythmia at a rate of 76, right bundle branch block with widening QRS duration of 200 with QTc of 540. ASSESSMENT AND PLAN: This is an 85-year-old male who presents with hyperkalemia and EKG changes. 1. Hyperkalemia and EKG changes: There was widening QRS complex and prolonged QT and was given calcium gluconate, insulin, dextrose and sodium bicarbonate; EKG changes resolved. He also received patiromer in the ER. Nephrology consulted and notified and plan for dialysis tonight. 2. Ongoing diarrhea, leukocytosis, elevated lactic acid, history of C. diff colitis, p.o. vancomycin. Get stool cultures and stool for C. diff. . Can consider CT abdomen and pelvis and Gi consult.Follow repeat lactic acid levels. 3. Non-ST elevated myocardial infarction: Troponin of 23.7, currently asymptomatic. We will follow the repeat EKG and troponin.. Follow the echo. The patient declined cardiac catheterization in August and now also he is not that keen. His INR is 3.2. Cardiac consult. Will keep him n.p.o. until seen by cardiology. 4. End-stage renal disease, on hemodialysis: Missed dialysis on Sunday, getting dialysis tonight. 5. Diabetes: Currently not on any medications. Will follow HbA1c levels. Placed on insulin sliding scale. 6. History of atrial fibrillation: Controlled with Toprol-XL, on Coumadin. 7. History of pulmonary embolism: Status post IVC filter, on Coumadin. Follow PT/INR. 8. History of coronary artery disease, history of non-ST elevated myocardial infarction in the past, on Toprol-XL, statin. Restart Plavix and further recommendation per cardiology. 9. 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 10. History of atrial flutter status post ablation. 11. History of carotid endarterectomy. 12. History of thrombocytopenia: Currently platelets are 116. Will follow the labs. 13. History of chronic right-sided heart failure: Volume status with dialysis. 14. Hyperlipidemia: On statin. 15. Deep venous thrombosis prophylaxis: On Coumadin. INR 3.2. Will follow the PT/INR. DISPOSITION: Admit to ICU. PT and OT prior to discharge. Social service to help with discharge planning. Level 1 full code as per my discussion with the patient. JOSE CARLOSD
[2021-02-10] MEDS ORDERED: SODIUM CHLORIDE 0.9% 1000ML 500 ML IV ONE (03:21)
[2021-02-10] MEDS ORDERED: STAT IV Infusion **Titration per Protocol STA ×4 (04:27→07:36)
[2021-02-10] MEDS ORDERED: NOREPINEPHRINE/D5W 8 MG/508 ML BAG IV SCH (04:30)
--- NOTE | 2021-02-10 05:11 | Procedure Note ---
Procedure Note Date of Service February 10, 2021 Note INTERNAL JUGULAR CENTRAL LINE PROCEDURE NOTE: Procedure: Internal Jugular Central Line Placement Attending: Dr. Inez Craig Provider: TROY Urbina Indication: Central Drug Administration, Poor Venous Access, Multiple Lab Draws Necessary, etc. Anesthesia:Lidocaine 1% Line placed emergently in the setting of hypotension with limited IV access, now requiring vasopressor support. A time-out was completed verifying correct patient, procedure, site, positioning, and implants(s) or special equipment if applicable. Patients right neck was cleansed and draped in the typical sterile fashion using Chloraprep. The Internal Jugular Vein and Carotid Artery were identified using ultrasound. The superficial tissue was anesthetized using 3 mL of 1% lidocaine without epinephrine under direct visualization with the ultrasound. After adequate anesthetization was achieved, the Internal Jugular vein was cannulated under direct ultrasound guidance using an introducer needle on a syringe. Good venous blood return was maintained prior to removal of syringe from introducer needle. Using Seldinger Technique, a guide wire was advanced through the introducer needle without resistance. The introducer needle was removed and ultrasound im ages were obtained of the guide wire within the Internal Jugular Vein and saved to the patients medical record. A small incision was made in penetrating fashion at the guide wire insertion site utilizing an 11 blade scalpel. The dilator was advanced to the vessel without resistance. The dilator was exchanged for the triple lumen catheter which was advanced into the vessel without resistance. The guide wire was removed intact from the catheter without issue. Claves were placed on each catheter tip with confirmation of good blood flow from each lumen. Each port was easily flushed with sterile saline. The catheter was placed at 17 cm and sut[address] in place. BioPatch was applied to the catheter and a sterile Tegaderm dressing was applied over the catheter with careful attention to sterility. Patient tolerated procedure well. No immediate complications were met. Post procedure x-ray was completed, placement was appropriate and no pneumothorax was noted. Images obtained are saved for permanent record Procedural Ultrasound Guidance: Procedure Date: 02/10/2021 Indication: Central venous catheter insertion Attending: Dr. Inez Craig Provider: TROY Urbina Artery AND Vein visualized: Yes Compressible Vein: Yes Guidewire or Short Catheter seen in vein prior to dilation: Yes Line confirmed in Vein with ultrasound: Yes Images obtained are saved for permanent record. Coding CPT Codes Tubes, Drains, and Vasc Access - Tubes, Drains, and Vasc Access: [id number] Place catheter in vein superior or inferior vena cava ([id number]) Tubes, Drains, and Vasc Access - Tubes, Drains, and Vasc Access: [id number] Ultrasound Guidance For Vascular ([id number]) [facility] [place] Procedure Codes (Charges) Tubes, Drains, and Vasc Access Procedure 1: Tubes, Drains, and Vasc Access: [id number] Place catheter in vein superior or inferior vena cava Procedure 2: Tubes, Drains, and Vasc Access: [id number] Ultrasound Guidance For Vascular
[2021-02-10 05:19] LABS: Hematocrit (blood only) 32.2 % (42-52); Hemoglobin 10.6 g/dL (14.0-18.0); Mean Corpuscular Hemoglobin 35.7 pg (25-34); Mean Corpuscular Hgb Conc 32.9 g/dL (32-36); Mean Corpuscular Volume 108.4 fL (80-100); Mean Platelet Volume 12.8 fL (7.4-10.4); Nucleated RBC # (auto) 0.03 K/uL (0-0); Nucleated RBC % (auto) 0.3 %; Platelet Count 105 K/uL (130-400); RDW Coefficient of Variation 17.5 % (11.5-14.5); RDW Standard Deviation 68.4 fL (36.4-46.3); Red Blood Count 2.97 M/uL (4.7-6.1); White Blood Count 12.17 K/uL (4.8-10.8)
[2021-02-10] MEDS: ALBUMIN 25% 12.5 GM/50 ML VIAL IV SCH ×2 (05:21→06:22)
[2021-02-10 05:35] LABS: INR 3.7 (0.9-1.1); Prothrombin Time 33.9 Seconds (9.0-12.0)
[2021-02-10 05:36] LABS: BUN Creatinine Ratio 9.6 (10-20); Calcium 8.2 mg/dl (8.5-10.1); Creatinine Clr Calc Pharmacy 14.2 ml/min; Est GFR (African American) 13.9 ml/min; Magnesium 2.5 mg/dl (1.8-2.4); Potassium 4.7 mmol/L (3.5-5.1)
[2021-02-10 05:46] LABS: Basophils # (auto) 0.02 K/uL (0-0.2); Basophils % (auto) 0.2 %; Eosinophils # (auto) 0.01 K/uL (0-0.5); Eosinophils % (auto) 0.1 %; Immature Granulocytes # (auto) 0.07 K/uL (0.00-0.02); Immature Granulocytes % (auto) 0.6 %; Lymphocytes # (auto) 0.84 K/uL (1.2-3.4); Lymphocytes % (auto) 6.9 %; Monocytes # (auto) 1.02 K/uL (0.11-0.59); Monocytes % (auto) 8.4 %; Neutrophils # (auto) 10.21 K/uL (1.4-6.5); Neutrophils % (auto) 83.8 %; RBC Morphology Unremarkable
[2021-02-10] MEDS ORDERED: NORMOSOL-R 500 ML IV ONE (05:55)
[2021-02-10 06:11] LABS: Phosphorus 5.1 mg/dl (2.5-4.9)
[2021-02-10 06:15] LABS: Estimated Average Glucose 183 mg/dl
[2021-02-10 06:24] LABS: Base Excess VBG 1.2 mEq/L; pH VBG 7.45 (7.36-7.41)
[2021-02-10 06:25] LABS: Partial Thromboplastin Ratio 2.4
[2021-02-10 06:29] LABS: Partial Thromboplastin Time 62.4 Seconds (21.0-31.0)
[2021-02-10] MEDS ORDERED: AMIODARONE IV BOLUS & DRIP IV STA (06:35)
[2021-02-10] MEDS ORDERED: AMIODARONE / D5W 150 MG/100 ML BAG IV STA (06:40)
[2021-02-10] MEDS ORDERED: 0.2 MICRON FILTER SET 1 EA IV ONE (06:45)
[2021-02-10] MEDS ORDERED: AMIODARONE / D5W 360 MG/200 ML BAG IV ONE (06:50)
--- NOTE | 2021-02-10 07:17 | XRay Report ---
XR chest 1V portable CLINICAL HISTORY: central line placement COMPARISON STUDY: Chest radiograph February 09, 2021. FINDINGS: There is no pneumothorax following placement of a right internal jugular central line. Cath eter tip projects over the cavoatrial junction. There is no pneumothorax. There are small bilateral p leural effusions. Median sternotomy wires are noted. Cardiomegaly is unchanged. Interstitial thickeni ng has slightly progressed. IMPRESSION: 1. No pneumothorax following placement of a right internal jugular central line. 2. Increase in interstitial thickening which favors pulmonary edema. An infectious process could appe ar similar but is considered less likely. 3. Small bilateral pleural effusions. ACT 112: Negative or not required by law. Electronically signed by: John Emanuel M.D. 02/10/2021 7:16 AM
[2021-02-10] MEDS ORDERED: PHENYLEPHRINE HCL 20 MG in DEXTROSE 5% 500 ML IV SCH (07:45)
[2021-02-10] MEDS: VASOPRESSIN 20 UNITS in 0.9 % SODIUM CHLORIDE 100 ML IV SCH ×2 (07:47→15:18)
[2021-02-10] MEDS ORDERED: PIPERACILLIN/TAZOBACTAM 3.375 GM in DEXTROSE 5% 100 ML IV SCH (08:00)
[2021-02-10] MEDS: NEPHROCAPS PO SCH (08:09)
[2021-02-10] MEDS: ATORVASTATIN 40 MG TAB PO SCH (08:09)
[2021-02-10] MEDS: SEVELAMER HCL 800 MG TABLET PO SCH ×2 (08:10→20:35)
[2021-02-10 08:50] LABS: Partial Thromboplastin Ratio 2.1
[2021-02-10 08:57] LABS: Partial Thromboplastin Time 54.4 Seconds (21.0-31.0)
[2021-02-10] MEDS: PATIROMER CALCIUM SORBITEX 8.4 GM PACK PO SCH (09:14)
[2021-02-10] MEDS: FAMOTIDINE 20 MG in SYRINGE 3 ML IV SCH (09:14)
--- NOTE | 2021-02-10 10:08 | Cardiology Consultation ---
Date of Consultation February 10, 2021 Assessment & Plan (1) Non-ST elevation (NSTEMI) myocardial infarction: (2) PAF (paroxysmal atrial fibrillation): (3) RBBB: (4) Acute hyperkalemia: (5) ESRD (end stage renal disease) on dialysis: NSTEMI: -Patient with non-ST segment elevation myocardial infarction in August,, treated medically, LVEF moderately reduced at that time in the range of around 30-35%. -Echo this morning reveals very severe left ventricular systolic dysfunction, LVEF less than 20%, severe diffuse hypokinesis to akinesis with sparing of the basal segments. -He is free of anginal discomfort at this point. Presenting symptom was just generalized illness. -He is not on aspirin now, or chronically, due to concerns of aspirin allergy. -Previous treatment with clopidogrel after his event in August was subsequently discontinued due to melena. -He remains on anticoagulation with Coumadin given his history of past severe pulmonary embolism, paroxysmal atrial fibrillation. Case discussed with Dr. Craig of critical care, agree with phenylephrine support as necessary for blood pressure support, most recent systolic blood pressure in the 80s. I would predict that there is no culprit vessel amenable to PCI and that cardiac catheterization may actually be more harmful than helpful in this clinical case. PAROXYSMAL ATRIAL FIBRILLATION: Patient with history of atrial flutter for which he underwent remote ablation. He has had intermittent tachycardia episodes noted during hemodialysis over the last year and hemodialysis has been complicated by tachycardia and hypotension and therefore his been difficult to manage his fluid balance. He is back in atrial fibrillation today, having been in sinus rhythm on recent EKG last month. Agree with amiodarone infusion. Beta-laquita on hold due to hypotension. INR 3.2 on presentation last evening and 3.7 this morning. Coumadin on hold until need for any invasive procedures determined such as central access. When INR less than 2, consider bridge with heparin, or resume Coumadin. RIGHT BUNDLE BRANCH BLOCK: EKG with new right bundle branch block, evolution of anterolateral infarct pattern. At present, rhythm stable status post improvement in his potassium. Atrial fibrillation with ventricular rate in the range of 90 to 112 bpm noted. ACUTE HYPERKALEMIA: -Presenting potassium of 6.9 mmol/L improved to 4.7 status post emergent hemodialysis early this morning. Fluid removal limited by relative hypotension. ESRD ON HEMODIALYSIS: -Fluid balance has been challenging given relative hypotension for quite some time as an outpatient. Overall, patient has had progressive illness over the last year. Prognosis is considered poor. History of Present Illness Attending Physician: Anita Mcneill MD History of Present Illness Luis Davey is an 85 year old male seen in cardiology consultation per the request of Dr Cisneros for the evaluation of NSTEMI, atrial fibrillation, and ischemic cardiomyopathy. The patient is well known to the undersigned as I have followed him on an outpatient basis for years with him having had bioprosthetic surgical AVR 9 years ago with non obstructive CAD on his preoperative cardiac catheterization at that time. He has a h/o ESRD and is on HD. HD often complicated by hypotension and tachycardia. Notes recent generalized weakness, diarrhea (without blood) and had missed a recent dialysis session. He presented to the ED overnight with findings of hyperkalemia, lactic acidosis, and elevated troponin of 23.7 ng/ml, which had trended down to 20.3 thus far. He is chest pain free. Cardiac History: (1) paroxysmal atrial fibrillation -in sinus rhythm on most recent EKG as noted above (2) History of recurrent atrial flutter for which patient underwent tricuspid isthmus ablation in July 2016 (3)Status post bioprosthetic aortic valve replacement, 04/22/2012 with a 23 millimeter Kristie-Barraza pericardial valve with surgery having been performed for severe symptomatic aortic valve stenosis Nonobstructive CAD on preoperative cardiac catheterization (4)End-stage renal disease on hemodialysis (5)History of past life-threatening pulmonary embolism for which she is prescribed chronic Coumadin anticoagulation (6)Status post right carotid endarterectomy in 2008 Allergies Allergy/AdvReac Type Severity Reaction Status Date / Time aspirin Allergy Unknown . Verified 02/09/21 19:29 salicylates Allergy Unknown UNKNOWN Verified 02/09/21 19:29 Home Medications Medication Instructions Recorded Confirmed Type cholecalciferol (vitamin D3) 1,000 unit PO HS 06/14/18 02/09/21 History [Vitamin D3] docusate sodium 100 mg PO BID PRN 03/18/19 02/09/21 History omega 0-jsz-cai-fish oil [Fish Oil] 1 cap PO DAILY 05/21/19 02/09/21 History lidocaine-prilocaine 1 applic TOPICAL 3XWK 11/13/19 02/09/21 History sevelamer carbonate [Renvela] 1,600 mg PO DAILYBD 11/13/19 02/09/21 History sevelamer carbonate [Renvela] 800 mg PO BID 11/13/19 02/09/21 History warfarin 5 mg PO UD 11/13/19 02/09/21 History Nephro-Neeraj 1 tab PO DAILY 09/07/20 02/09/21 History buprenorphine 1 patch TOPICAL WK 09/07/20 02/09/21 History diphenoxylate-atropine 1 - 2 tab PO UD PRN MDD 8 tabs 09/07/20 02/09/21 History fluticasone propionate 1 spray INTRANASAL DAILY PRN 09/07/20 02/09/21 History menthol [Ice Blue Gel] 1 applic TOPICAL UD PRN 09/07/20 02/09/21 History ondansetron HCl 4 mg PO Q6 PRN 09/07/20 02/09/21 History vancomycin 125 mg PO DAILY 09/07/20 02/09/21 History atorvastatin 40 mg PO QAM #30 tab 09/10/20 02/09/21 Rx nitroglycerin 0.4 mg SUBLINGUAL ONCE PRN #25 tab 09/10/20 02/09/21 Rx acetaminophen 1,000 mg PO Q8 PRN 10/06/20 02/09/21 History metoprolol succinate 12.5 mg PO HS 02/09/21 02/09/21 History Patient History Medical History 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 Aortic valve insufficiency Atrial flutter CAD (coronary artery disease) s/p NSTEMI 09/07/20 CHF (congestive heart failure) mixed systolic + diastolic; underlying ischemic heart disease echo 09/07/20 LVEF 35-40% Diabetes mellitus type 2 with complications Do not resuscitate status DVT (deep venous thrombosis) " 01/13/09 left leg " Dyslipidemia ESRD (end stage renal disease) on dialysis GERD (gastroesophageal reflux disease) Gram-positive bacteremia HTN (hypertension) Hx of amaurosis fugax "01/27/09, OD " PMR (polymyalgia rheumatica) 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 Pulmonary embolus Type 2 diabetes mellitus Surgical History H/O carotid endarterectomy "STEPHY 2008" H/O removal of testicle H/O superior vena cava filter placement History of hydrocelectomy History of total hip replacement S/P ablation of atrial flutter S/P aortic valve replacement "bio prosthetic" S/P cardiac cath "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" Family History Mother Hypertension Brother Stroke Social History Smoking Status: Never smoker Second Hand Exposure: No; Hx Alcohol Use: No Hx Substance Use: No Preferred Language: Pashto Communication Ability: Effective Visual Impairment: Partially Limited Machining Associate Required: No Beliefs That Will Affect Care: None marital status: Current Living Situation: Spouse Current Living Situation Comment: lives with Vannesa and six dogs in three story home. How many Children do You have: 4 Other Information That Helps Us Care for You: No Feels Safe at Home: Yes Safety Concerns: Feels Safe At This Time Assistive Devices: Walker Review of Systems Review of Systems: All systems reviewed & are unremarkable except as noted in HPI & below Physical Exam Physical Exam: Temp Pulse Resp BP Pulse Ox 36.6 C 99 H 17 84/49 L 97 02/10/21 08:00 02/10/21 03:32 02/10/21 01:27 02/10/21 03:32 02/10/21 01:27 Respiratory: normal respiratory effort, lungs clear to auscultation Cardiovascular: Rate/Rhythm: + irregularly irregular Heart Sounds: no murmur Vessels: no JVD Extremities: no edema Gastrointestinal (Abdomen): normal bowel sounds, soft, nontender, no hepatosplenomegaly Neurologic: PERRL, EOMI, accommodation nl, no face palsy, no dysarthria Results & Data ([facility]) Vital Signs (Past 12 Hours) Vital Signs Temp Pulse Pulse Resp BP BP Pulse Ox 02/10/21 03:32 36.7 C 99 H 84/49 L 02/10/21 02:54 108 H 80/52 L 02/10/21 02:30 104 H 78/56 L 02/10/21 02:15 102 H 72/54 L 02/10/21 02:00 107 H 73/55 L 02/10/21 01:45 100 H 89/65 L 02/10/21 01:30 102 H 149/93 H 02/10/21 01:27 107 H 17 94/78 L 97 02/10/21 01:15 102 H 17 149/93 H 98 02/10/21 01:13 101 H 17 146/105 H 98 02/10/21 01:00 99 H 18 96 02/10/21 00:45 94 H 101/74 02/10/21 00:30 96 H 19 108/56 L 96 02/10/21 00:26 97 H 18 108/56 L 100 02/10/21 00:15 89 104/72 02/10/21 00:12 36.6 C 96 H 02/10/21 00:11 94 H 18 99/70 L 97 02/10/21 00:03 95 H 18 101/74 98 02/10/21 00:00 96 H 18 97 02/09/21 23:56 36.8 C 96 H 96 H 18 104/72 102/74 96 02/09/21 23:40 96 H 02/09/21 23:36 174 H 22 102/74 94 02/09/21 23:10 89 21 94 02/09/21 23:01 87 18 95 02/09/21 23:00 87 17 123/83 93 02/09/21 22:50 86 23 94 02/09/21 22:45 86 26 H 124/79 93 02/09/21 22:40 91 H 30 H 93 02/09/21 22:31 91 H 23 95 02/09/21 22:30 90 24 123/83 93 02/09/21 22:20 93 H 19 95 02/09/21 22:15 90 22 130/82 93 02/09/21 22:10 91 H 36 H 95 Pulse Ox 02/10/21 03:32 02/10/21 02:54 02/10/21 02:30 02/10/21 02:15 02/10/21 02:00 02/10/21 01:45 02/10/21 01:30 02/10/21 01:27 02/10/21 01:15 02/10/21 01:13 02/10/21 01:00 02/10/21 00:45 02/10/21 00:30 02/10/21 00:26 02/10/21 00:15 02/10/21 00:12 02/10/21 00:11 02/10/21 00:03 02/10/21 00:00 02/09/21 23:56 02/09/21 23:40 96 02/09/21 23:36 02/09/21 23:10 02/09/21 23:01 02/09/21 23:00 02/09/21 22:50 02/09/21 22:45 02/09/21 22:40 02/09/21 22:31 02/09/21 22:30 02/09/21 22:20 02/09/21 22:15 02/09/21 22:10 Laboratory Results Cardiac Enzymes 02/09/21 02/09/21 02/10/21 Range/Units 20:03 23:05 05:06 AST 92 H (15-37) U/L Troponin I 21.800 H* 23.700 H* 22.000 H* (0-0.045) ng/ml 02/10/21 Range/Units 08:15 AST (15-37) U/L Troponin I 20.300 H* (0-0.045) ng/ml Coagulation 02/09/21 02/10/21 02/10/21 Range/Units 20:03 05:06 05:06 PT 29.4 H 33.9 H (9.0-12.0) Seconds APTT 62.4 H* (21.0-31.0) Seconds 02/10/21 Range/Units 08:15 PT (9.0-12.0) Seconds APTT 54.4 H* (21.0-31.0) Seconds Lipids 02/10/21 Range/Units 05:06 Triglycerides 95 (0-150) mg/dl Cholesterol 80 (0-200) mg/dl HDL Cholesterol 49 mg/dl Cholesterol/HDL Ratio 2 CBC 02/09/21 02/10/21 Range/Units 20:03 05:06 WBC 15.37 H 12.17 H (4.8-10.8) K/uL RBC 3.21 L 2.97 L (4.7-6.1) M/uL Hgb 11.6 L 10.6 L (14.0-18.0) g/dL Hct 34.6 L 32.2 L (42-52) % Plt Count 116 L 105 L (130-400) K/uL Neut # (Auto) 13.13 H 10.21 H (1.4-6.5) K/uL Lymph # (Auto) 0.81 L 0.84 L (1.2-3.4) K/uL Davis # (Auto) 1.37 H 1.02 H (0.11-0.59) K/uL Eos # (Auto) 0.00 0.01 (0-0.5) K/uL Baso # (Auto) 0.01 0.02 (0-0.2) K/uL Comprehensive Metabolic Panel 02/09/21 02/09/21 02/10/21 Range/Units 20:03 23:05 05:06 Sodium 127 L 132 L 135 L (136-145) mmol/L Potassium 6.9 H* 6.3 H* 4.7 D (3.5-5.1) mmol/L Chloride 90 L 92 L 97 L (98-107) mmol/L Carbon Dioxide 20 L 23 24 (21-32) mmol/L BUN 102 H 103 H 40 H D (7-18) mg/dl Creatinine 8.44 H* 8.40 H* 4.22 H D (0.6-1.4) mg/dl Glucose 283 H 169 H 185 H (70-99) mg/dl Calcium 8.8 8.3 L 8.2 L (8.5-10.1) mg/dl AST 92 H (15-37) U/L ALT 43 (12-78) U/L Alkaline Phosphatase 136 H (45-117) U/L Total Protein 8.5 H (6.4-8.2) gm/dl Albumin 2.7 L (3.4-5.0) gm/dl
[2021-02-10 10:13] LABS: Hepatitis B Surface Ab Quant < 3.10 mIU/mL (>or=10mIU/mL Immune); Hepatitis B Surface Antibody Non-Immune
[2021-02-10 10:24] LABS: Hepatitis B Surf Ag Rflx Conf Neg (Neg)
--- NOTE | 2021-02-10 11:38 | Consultation Report ---
DATE OF CONSULTATION: 02/10/2021 NEPHROLOGY CONSULTATION NOTE REASON FOR CONSULT: Dialysis patient admitted with hyperkalemia, PA, nausea, and diarrhea. HISTORY OF PRESENT ILLNESS: The patient is an 85-year-old male who is on chronic hemodialysis Sunday, , Sunday in the [facility]. He missed dialysis on Sunday because he was having nausea, vomiting, diarrhea, and very weak. He presented to the hospital yesterday with extreme weakness, nausea, vomiting, and diarrhea. In the Emergency Department, he was found to have very high potassium of 6.9 with EKG changes. His lactic acid was elevated and blood pressure was very low. Troponin was also extremely elevated. He had emergent dialysis last night and after that, potassium is normal. Blood pressure is much better now and it is about 100 systolic. 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 MEDICATIONS: At home are reviewed and are as per the reconciliation list. ALLERGIES: ALLERGY LIST WAS REVIEWED AND INCLUDES ASPIRIN AND SALICYLATES. FAMILY HISTORY: Negative for renal disease or dialysis and is not relevant at this age anyway. SOCIAL HISTORY: He is . No smoking, no alcohol, no drug. REVIEW OF SYSTEMS: Is already detailed in the HPI. The positive review of system included nausea, vomiting, diarrhea, extreme weakness. Otherwise, 12 systems reviewed and negative. PHYSICAL EXAMINATION: GENERAL: Elderly white male who seems to be very weak and tired at this time, but he is not in any respiratory distress. VITAL SIGNS: Blood pressure was low earlier last night, but the most recent blood pressure shows about 100 systolic. Pulse rate 99. Temperature 36.6, 97% on room air. HEENT: Mucous membranes moist. NECK: Supple. No jugular venous distention. CHEST: Bilaterally decreased breath sounds, poor inspiratory effort limiting the quality of the exam. CARDIOVASCULAR: S1 and S2 irregular, systolic murmur heard. ABDOMEN: Soft, nontender. EXTREMITIES: Show chronic lower extremity edema with chronic skin changes from venous insufficiency. NEUROLOGIC: He is awake, alert, oriented, normal speech. Moving all 4 extremities, following command. LABORATORY TESTS: He had a potassium of 6.9 at the time of admission, this morning after dialysis is 4.7. Blood work this morning shows sodium 135, potassium 4.7, BUN 40, creatinine 4.22. Lactic acid most recent 5.2. Troponin is very high at 22. Hemoglobin 10.6, WBC count 12,000. ASSESSMENT AND PLAN: An 85-year-old male admitted with weakness, nausea, vomiting, diarrhea. He was found to have hyperkalemia with EKG changes as well as lactic acidosis and acute myocardial infarction. 1. End-stage renal disease: He is a chronic dialysis patient and gets dialysis Sunday, , Sunday. He missed dialysis on Sunday and as a result, had a high potassium at the time of admission. Fortunately, after dialysis, potassium has normalized. It is concerning to see that lactic acid level is still rising, which is never a good sign. 2. Non-ST elevation myocardial infarction. Troponin is quite elevated . Cardiology is following. 3. Nausea, vomiting, diarrhea, leukocytosis, and elevated lactic acid. He has known history of recurrent Clostridium difficile, and quite possible, it is related. Defer to primary team. INDU
[2021-02-10] MEDS: AMIODARONE / D5W 360 MG/200 ML BAG IV SCH ×2 (13:13→20:18)
[2021-02-10] MEDS: PHENYLEPHRINE HCL 20 MG in SODIUM CHLORIDE 0.9% 500 ML IV SCH ×3 (13:13→22:33)
--- NOTE | 2021-02-10 13:34 | Critical Care Progress Note ---
Date of Service February 10, 2021 Assessment & Plan (1) Admitted to intensive care unit: Reason Critically Ill: 85-year-old male with ESRD presents to the ICU in need of emergent dialysis after missing dialysis session yesterday. Patient has multiple lab abnormalities including elevated potassium, troponin, CPK, and lactate and metabolic acidosis. Neuro - [facility] ICU: Negative Chronic back painlidocaine topical patch Cardiac - NSTEMIpatient with elevated troponin of 20, now up trended to 23. No chest pain, no ST elevations on EKG. -Patient was admitted with NSTEMI in August where his troponin peaked at 80, he refused cardiac catheterization at that time. -2D echo done 02/10/2021 shows EF 50-20% -Troponins are trending down. No intervention from cardiology perspective. -Allergy to ASA. Continue statin -Continuous monitor on telemetry Shock -Random cortisol 51.4 -Patient was on blood pressure medications at home I could be one of the reason -Continue with vasopressor support to keep MAP greater than 65 Proximal A. fib -Rate control medication on hold secondary to hypotension -Continue with amiodarone Respiratory - No history of pulmonary disease, currently maintaining oxygen saturation on room air. No respiratory distress. Continuous monitoring on pulse ox O2 supplementation to keep oxygen 88-92% GI - Heart healthy diabetic diet RENAL/LYTES - ESRD/hyperkalemia/metabolic acidosislast dialysis session Sunday, presents with potassium 6.8, pH 7.20, LA 3.2, creatinine of 8, anion gap 16 -Got emergent dialysis on 02/09/2021 -Continue sevelamer - Anuric ENDO - History of diabetes?Does not take No history of thyroid disease, TSH within normal limits HEME - H&H stable with hemoglobin 11, consistent with prior studies. Monitor routine CBCs and transfuse if indicated. Thrombocytopenia Continue to monitor ID - Sepsis?Patient with WBC 15, elevated lactate 3.2. Mildly elevated pro calcitonin although he has ESRD. Afebrile -Patient reports multiple loose stools in the past 48 hours and has history of recurrent C. difficile --> C. difficile negative this admission -No signs of infectious disease on chest imaging -Unable to obtain UA due to anuria -COVID-19 negative -Blood cultures pending, procalcitonin 0.86 in end-stage renal disease patient insignificant -Continue with empiric antibiotics for the time being. --Prophylaxis VTE: On warfarin GI: Pepcid Lines: Right IJ Diet: Cardiac renal Plan: In/out: +1.3 L, patient is end-stage renal disease --> no urine output Chest x-ray after placing the central line shows increase vascular congestion. Patient is saturating well right now but he will likely need dialysis in the future with removal of fluid. Patient into A. fib with RVR which got worse on Levophed. It has been changed to phenylephrine and vasopressin And will add midodrine to see if he can take the vasopressors off. Continue with amiodarone drip for the time being. Will likely need to be transitioned to p.o. amiodarone Continue with empiric antibiotics for the time being High anion gap is likely from elevated BUN as well as lactic acidosis. Follow- up repeat lactate. Overall prognosis of the patient is guarded Get palliative care involved as the patient's overall prognosis is guarded. He was DNR before and recently changed his CODE STATUS. I have personally spent 41 minutes of critical care time in the direct ma nagement of this patient. This is a life/limb threatening event. This includes time spent evaluating patient, direct bedside care, chart review, placing orders, interpretation of diagnostic studies, discussion with consultants, patient, and family members, as well as other required patient management activities. This time is exclusive of all separately billable procedures, and teaching time and separate from and in addition to any other critical care service time. Please note the above document was generated using voice recognition software. It may contain grammatical, syntax or spelling errors. (2) CHF (congestive heart failure): (3) PAF (paroxysmal atrial fibrillation): (4) ESRD (end stage renal disease) on dialysis: (5) Acute hyperkalemia: (6) RBBB: Admission and Anticipated Discharge Date Admission Date: February 09, 2021 Subjective Patient seen and examined at bedside. No acute distress. Patient is on phenylephrine as well as vasopressin. He is also on amiodarone drip. He denies any chest pain. Denied any shortness of breath. No headache, no dizziness. Wants to eat. Denies any nausea or vomiting Review of Systems Review of Systems: All systems reviewed & are unremarkable except as noted in Subjective Physical Exam Physical Exam: Constitutional: No acute distress HEENT: EOMI, PERRLA Respiratory system: Decreased air entry bilaterally, positive crackles bilateral lower lobes, no wheeze, no rhonchi CVS: S1-S2 positive, no murmurs or gallops, distant heart sounds, irregular Abdomen: Soft, nontender, nondistended, positive bowel sounds x4 Extremities: +1 pulses bilaterally radialis/ dorsalis pedis, no cyanosis, +2 ankle edema, lymphedema also present bilateral lower extremities Neuro: Awake alert oriented x3 Psych: Normal mood and affect G/U: No Wells Skin: no rashes, warm and dry Lymphatic: no cervical or axillary lymphadenopathy Results & Data Results & Data ([facility]) Vital Signs (Past 12 Hours) Vital Signs Temp Pulse Pulse Resp BP BP Pulse Ox 02/10/21 13:19 36.6 C 02/10/21 13:16 98 H 22 84/48 L 85 L 02/10/21 13:15 81 20 97 02/10/21 13:01 81 25 H 86/56 L 97 02/10/21 13:00 84 21 96 02/10/21 12:46 87 20 89 L 02/10/21 12:45 85 19 100/65 93 02/10/21 12:31 83 21 83/56 L 94 02/10/21 12:30 78 16 02/10/21 12:16 79 19 87 L 02/10/21 12:15 85 20 117/70 90 02/10/21 12:00 81 22 98/75 L 87 L 02/10/21 11:45 93 H 22 96/60 L 92 02/10/21 11:31 86 19 90 02/10/21 11:30 89 19 94/71 L 90 02/10/21 11:20 81 17 85 L 02/10/21 11:15 92 H 19 92/64 L 95 02/10/21 11:10 87 22 91 02/10/21 11:01 95 H 20 96 02/10/21 11:00 91 H 22 108/67 93 02/10/21 10:50 90 27 H 94 02/10/21 10:46 94 H 28 H 91/68 L 99 02/10/21 10:40 89 21 96 02/10/21 10:30 96 H 19 83 L 02/10/21 10:28 95 H 23 80/69 L 02/10/21 10:21 135 H 27 H 95/62 L 70 L 02/10/21 10:20 91 H 24 77 L 02/10/21 10:16 93 H 19 95/66 L 94 02/10/21 10:11 91 H 18 89/70 L 96 02/10/21 10:10 93 H 18 96 02/10/21 10:06 87 20 99/64 L 97 02/10/21 10:01 94 H 23 92/65 L 96 02/10/21 10:00 96 H 20 92 02/10/21 09:56 94 H 23 95/67 L 91 02/10/21 09:52 101 H 24 75/60 L 82 L 02/10/21 09:50 88 23 89 L 02/10/21 09:46 91 H 24 99/68 L 87 L 02/10/21 09:41 88 22 88/60 L 88 L 02/10/21 09:40 91 H 19 91 02/10/21 09:36 90 18 91/65 L 89 L 02/10/21 09:31 96 H 21 95/59 L 85 L 02/10/21 09:30 96 H 19 91 02/10/21 09:26 88 21 92/56 L 96 02/10/21 09:22 100 H 20 86/61 L 02/10/21 09:20 110 H 26 H 02/10/21 09:16 92 H 20 90/51 L 96 02/10/21 09:11 97 H 20 89/64 L 90 02/10/21 09:10 94 H 26 H 93 02/10/21 09:06 92 H 22 98/62 L 98 02/10/21 09:01 94 H 17 85/64 L 93 02/10/21 09:00 99 H 21 93 02/10/21 08:57 94 H 25 H 79/54 L 93 02/10/21 08:51 96 H 22 83/65 L 95 02/10/21 08:50 96 H 22 95 02/10/21 08:46 103 H 22 93/69 L 95 02/10/21 08:41 93 H 24 96/66 L 89 L 02/10/21 08:40 92 H 22 94 02/10/21 08:36 102 H 20 87/69 L 92 02/10/21 08:31 92 H 20 88/66 L 94 02/10/21 08:30 102 H 20 94 02/10/21 08:26 98 H 21 100/63 95 02/10/21 08:21 105 H 20 81/53 L 02/10/21 08:20 93 H 18 02/10/21 08:00 36.6 C 02/10/21 03:32 36.7 C 99 H 84/49 L 02/10/21 02:54 108 H 80/52 L 02/10/21 02:30 104 H 78/56 L 02/10/21 02:15 102 H 72/54 L 02/10/21 02:00 107 H 73/55 L 02/10/21 01:45 100 H 89/65 L 02/10/21 01:30 102 H 149/93 H 02/10/21 01:27 107 H 17 94/78 L 97 02/10/21 05:06 02/10/21 05:06 Coding Level of Care Code Critical Care 1st 30-74 mins Diagnoses Admitted to intensive care unit Z78.9 CHF (congestive heart failure) I50.9 PAF (paroxysmal atrial fibrillation) I48.0 ESRD (end stage renal disease) on dialysis N18.6; Z99.2 Acute hyperkalemia E87.5 RBBB I45.10 Time Spent (min) 41
[2021-02-10] MEDS ORDERED: ONDANSETRON INJ 2 MG/ML 2 ML VIAL ONE (13:49)
--- NOTE | 2021-02-10 14:10 | Pharmacy Report ---
Pharmacy Glycemic Short Note 2 - Date of Service February 10, 2021 - Glycemic Short BSG Results (Last 24 hours): 02/09/21 02/09/21 02/09/21 20:03 21:59 23:05 Glucose 283 H 169 H POC Glucose 284 H 02/10/21 02/10/21 02/10/21 00:17 02:36 05:06 Glucose 185 H POC Glucose 212 H 135 H 02/10/21 02/10/21 07:51 11:59 Glucose POC Glucose 206 H 247 H OUTPATIENT ANTIDIABETIC REGIMEN: * N/A * A1C: 8% 02/10/21 ESRD ASSESSMENT: * Patient has required minimal insulin during past admissions, however BSG has been elevated in the 200s thus far. This is likely due to the significant amou nt of dextrose containing infusions he is receiving (~110ml/hr). Phenylephrine accounts for the majority of this. After discussion with provider the diluent was changed from dextrose to NS. I also tightened CF, added a conservative CR and lowered goal range on the NovoLog. The patient is ordered a diet. I modified the diet to include T2DM for dinner which should also help with BSGs. PLAN FOR INPATIENT GLYCEMIC CONTROL: * Hold outpatient oral diabetes medications * Basal insulin * Hold today- will reassess need for basal insulin tomorrow * Bolus insulin * NovoLog per scale ACHS And 0200 * Goal Range: Low 120 mg/dL - High 150 mg/dL * Correction Factor: 25 mg/dL/unit * Nutritional / Prandial insulin per carb ratio of 1 unit per 12 grams CHO consumed
[2021-02-10] MEDS ORDERED: MIDODRINE HCL 2.5 MG TAB PO STA (14:26)
--- NOTE | 2021-02-10 14:45 | Hospitalist Progress Note ---
Date of Service February 10, 2021 Assessment & Plan (1) Acute hyperkalemia: Admitted with hyperkalemia potassium more than 6, with EKG change. Underwent emergent dialysis on admission. This morning electrolytes are stable, with normal volume status Nephrology consulted, patient will be continued with scheduled dialysis (2) End stage renal disease: Has been on dialysis for last 5 yrs Nephrology following (3) Non-ST elevation (NSTEMI) myocardial infarction: Elevated troponin more than 20. Echo shows worsening of LV function reduced to 15%, Recent history of non-ST elevated AL on August 2020, ejection fraction was 30%, was treated medically Cardiac angiogram/intervention was noted to be too high risk, at this point, Patient does not have any angina symptoms. Appreciate input from cardiology, Recommend medical management only, overall prognosis remains guarded Admission and Anticipated Discharge Date Admission Date: February 09, 2021 Subjective Patient seen in ICU room 103, admitted in critical care unit secondary to hyperkalemia missed dialysis, hypotension. Patient is awake and alert, his only complaint is he has been hungry since morning has not really received any food yet, Patient has been n.p.o. for significant hypotension, there is also was concern for non-ST elevated AL need for cardiac procedure. We will plan for cardiac cath, patient has been on minimal pressors, no complaint of abdominal pain no nausea Ordered for diet, plan of care discussed with critical care. Blood pressure remains borderline low, patient denies of any chest pain chest discomfort no shortness of breath or orthopnea. Review of Systems Review of Systems: All systems reviewed & are unremarkable except as noted in Subjective Physical Exam Physical Exam: Physical exam: General: Chronically ill-appearing, no apparent distress HEENT: Anicteric sclera Heart: Regular, +12 lower extremity edema Lungs: Diminished, occasional rales in base Abdomen: Soft nontender, Extremity: No cyanosis or deformity no rash Neuro: No focal neurological deficit normal speech, generalized weakness Psych: Alert awake oriented x3, normal affect Results & Data Results & Data ([facility]) Vital Signs (Past 12 Hours) Vital Signs Temp Pulse Pulse Resp BP BP Pulse Ox 02/10/21 13:19 36.6 C 02/10/21 13:16 98 H 22 84/48 L 85 L 02/10/21 13:15 81 20 97 02/10/21 13:01 81 25 H 86/56 L 97 02/10/21 13:00 84 21 96 02/10/21 12:46 87 20 89 L 02/10/21 12:45 85 19 100/65 93 02/10/21 12:31 83 21 83/56 L 94 02/10/21 12:30 78 16 02/10/21 12:16 79 19 87 L 02/10/21 12:15 85 20 117/70 90 02/10/21 12:00 81 22 98/75 L 87 L 02/10/21 11:45 93 H 22 96/60 L 92 02/10/21 11:31 86 19 90 02/10/21 11:30 89 19 94/71 L 90 02/10/21 11:20 81 17 85 L 02/10/21 11:15 92 H 19 92/64 L 95 02/10/21 11:10 87 22 91 02/10/21 11:01 95 H 20 96 02/10/21 11:00 91 H 22 108/67 93 02/10/21 10:50 90 27 H 94 02/10/21 10:46 94 H 28 H 91/68 L 99 02/10/21 10:40 89 21 96 02/10/21 10:30 96 H 19 83 L 02/10/21 10:28 95 H 23 80/69 L 02/10/21 10:21 135 H 27 H 95/62 L 70 L 02/10/21 10:20 91 H 24 77 L 02/10/21 10:16 93 H 19 95/66 L 94 02/10/21 10:11 91 H 18 89/70 L 96 02/10/21 10:10 93 H 18 96 02/10/21 10:06 87 20 99/64 L 97 02/10/21 10:01 94 H 23 92/65 L 96 02/10/21 10:00 96 H 20 92 02/10/21 09:56 94 H 23 95/67 L 91 02/10/21 09:52 101 H 24 75/60 L 82 L 02/10/21 09:50 88 23 89 L 02/10/21 09:46 91 H 24 99/68 L 87 L 02/10/21 09:41 88 22 88/60 L 88 L 02/10/21 09:40 91 H 19 91 02/10/21 09:36 90 18 91/65 L 89 L 02/10/21 09:31 96 H 21 95/59 L 85 L 02/10/21 09:30 96 H 19 91 02/10/21 09:26 88 21 92/56 L 96 02/10/21 09:22 100 H 20 86/61 L 02/10/21 09:20 110 H 26 H 02/10/21 09:16 92 H 20 90/51 L 96 02/10/21 09:11 97 H 20 89/64 L 90 02/10/21 09:10 94 H 26 H 93 02/10/21 09:06 92 H 22 98/62 L 98 02/10/21 09:01 94 H 17 85/64 L 93 02/10/21 09:00 99 H 21 93 02/10/21 08:57 94 H 25 H 79/54 L 93 02/10/21 08:51 96 H 22 83/65 L 95 02/10/21 08:50 96 H 22 95 02/10/21 08:46 103 H 22 93/69 L 95 02/10/21 08:41 93 H 24 96/66 L 89 L 02/10/21 08:40 92 H 22 94 02/10/21 08:36 102 H 20 87/69 L 92 02/10/21 08:31 92 H 20 88/66 L 94 02/10/21 08:30 102 H 20 94 02/10/21 08:26 98 H 21 100/63 95 02/10/21 08:21 105 H 20 81/53 L 02/10/21 08:20 93 H 18 02/10/21 08:00 36.6 C 02/10/21 03:32 36.7 C 99 H 84/49 L 02/10/21 02:54 108 H 80/52 L
[2021-02-10] MEDS ORDERED: SEVELAMER HCL 800 MG TABLET PO SCH (15:30)
--- NOTE | 2021-02-10 15:31 | Palliative Care Consultation ---
Date of Consultation February 10, 2021 Assessment & Plan (1) Palliative care encounter: Mr. Davey is an 85 year old male who presented to the [facility] with nausea, diarrhea and weakness. He was found to be hypotensive and tachycardic. He has ESRD and missed one of his dialysis sessions due to his weakness. He had an NSTEMI in August 2020 and his EF then was 30% and worsening. Now per ECHO, his EF is 15-20%. Cardiology has been on board. Palliative Medicine has been involved with this individual and last saw him in August 2020. Additional PMH includes paroxysmal atrial fibrillation and he had a right carotid done in 2008. Palliative Medicine was consulted to re-evaluate and discuss goals of care. I met with Mr. Davey in room 103. He was awake, alert and oriented. He was able to have meaningful conversation. He stated that overall he feels dialysis has been going well. We did discuss his heart worsening and his worsening EF and what that means. I reminded him of our previous conversation about if he would not be able to tolerate HD, what would be most meaningful to him and he was clear that if he were to , he would wand to at home. This remains an unchanged wish. I discussed that he is now requiring pressor support and how his blood pressure is not able to tolerate dialysis as well as it has been in recent months, which is in part due to his worsening EF. HE does voice understanding about this. I discussed code status with him and he stated that he does not want to be on machines or have aggressive measures taken, but does want us to discuss this with his daughter, Rocio. He did not want me to call his , Vannesa. He is very protective of his and Vannesa is a big reason of why he has wanted to historically continue care. He beamed talking about their marriage of 67 years. He also reflected on his time abroad in the [employer]. Ultimately, this gentleman has been tolerating HD for 5 years now; however, his worsening EF is making him less able to tolerate and he is now becoming dependent on vasopressor support, currently on two inotropic medications: Phenylephrine and Vasopressin. Code status is imperitive to discuss based on his advanced disease state. Would be a good candidate for home with hospice, if willing to stop hemodialysis. Remain Full Code, until further family discussion. I called Rocio at [phone]. I left a voice mail with the new palliative medicine # [phone] to call back. I did reach out to Aracelis, his other daughter but she stated she was at work and Rocio has been the main contact. Palliative Medicine will follow. (2) End stage renal disease: Received emergency HD upon admission. His K+ was 6.9 and Creatinine was 8.4. Post treatment, his K+ went down to 4.7 and creatinine down to baseline 4.22. Now requiring vasoactive support. (3) Hypotension: History of Present Illness Reason for Consultation: goals of care Requesting Physician: Dr. Craig Attending Physician: Anita Mcneill MD History of Present Illness Mr. Davey is an 85 year old male who presented to the [facility] with nausea, diarrhea and weakness. He was found to be hypotensive and tachycardic. He has ESRD and missed one of his dialysis sessions due to his weakness. He had an NSTEMI in August 2020 and his EF then was 30% and worsening. Now per ECHO, his EF is 15-20%. Cardiology has been on board. Palliative Medicine has been involved with this individual and last saw him in August 2020. Additional PMH includes paroxysmal atrial fibrillation and he had a right carotid done in 2008. Palliative Medicine was consulted to re-evaluate and discuss goals of care. Please see A/P for further details. Thanks for re-involving palliative medicine. We will follow. Allergies Allergy/AdvReac Type Severity Reaction Status Date / Time aspirin Allergy Unknown . Verified 02/09/21 19:29 salicylates Allergy Unknown UNKNOWN Verified 02/09/21 19:29 Home Medications Medication Instructions Recorded Confirmed Type cholecalciferol (vitamin D3) 1,000 unit PO HS 06/14/18 02/09/21 History [Vitamin D3] docusate sodium 100 mg PO BID PRN 03/18/19 02/09/21 History omega [id number] oil [Fish Oil] 1 cap PO DAILY 05/21/19 02/09/21 History lidocaine-prilocaine 1 applic TOPICAL 3XWK 11/13/19 02/09/21 History sevelamer carbonate [Renvela] 1,600 mg PO DAILYBD 11/13/19 02/09/21 History sevelamer carbonate [Renvela] 800 mg PO BID 11/13/19 02/09/21 History warfarin 5 mg PO UD 11/13/19 02/09/21 History Nephro-Neeraj 1 tab PO DAILY 09/07/20 02/09/21 History buprenorphine 1 patch TOPICAL WK 09/07/20 02/09/21 History diphenoxylate-atropine 1 - 2 tab PO UD PRN MDD 8 tabs 09/07/20 02/09/21 History fluticasone propionate 1 spray INTRANASAL DAILY PRN 09/07/20 02/09/21 History menthol [Ice Blue Gel] 1 applic TOPICAL UD PRN 09/07/20 02/09/21 History ondansetron HCl 4 mg PO Q6 PRN 09/07/20 02/09/21 History vancomycin 125 mg PO DAILY 09/07/20 02/09/21 History atorvastatin 40 mg PO QAM #30 tab 09/10/20 02/09/21 Rx nitroglycerin 0.4 mg SUBLINGUAL ONCE PRN #25 tab 09/10/20 02/09/21 Rx acetaminophen 1,000 mg PO Q8 PRN 10/06/20 02/09/21 History metoprolol succinate 12.5 mg PO HS 02/09/21 02/09/21 History Patient History Medical History 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 Aortic valve insufficiency Atrial flutter CAD (coronary artery disease) s/p NSTEMI 09/07/20 CHF (congestive heart failure) mixed systolic + diastolic; underlying ischemic heart disease echo 09/07/20 LVEF 35-40% Diabetes mellitus type 2 with complications Do not resuscitate status DVT (deep venous thrombosis) " 01/13/09 left leg " Dyslipidemia ESRD (end stage renal disease) on dialysis GERD (gastroesophageal reflux disease) Gram-positive bacteremia HTN (hypertension) Hx of amaurosis fugax "01/27/09, OD " PMR (polymyalgia rheumatica) 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 Pulmonary embolus Type 2 diabetes mellitus Surgical History H/O carotid endarterectomy "2008" H/O removal of testicle H/O superior vena cava filter placement History of hydrocelectomy History of total hip replacement S/P ablation of atrial flutter S/P aortic valve replacement "bio prosthetic" S/P cardiac cath "2012 - non obstructive CAD" Family History Mother Hypertension Brother Stroke Social History Smoking Status: Never smoker Second Hand Exposure: No; Hx Alcohol Use: No Hx Substance Use: No Preferred Language: Polish Communication Ability: Effective Visual Impairment: Partially Limited Franchise Manager Required: No Beliefs That Will Affect Care: None marital status: Current Living Situation: Spouse Current Living Situation Comment: lives with Vannesa and six dogs in three story home. How many Children do You have: 4 Other Information That Helps Us Care for You: No Feels Safe at Home: Yes Safety Concerns: Feels Safe At This Time Assistive Devices: Walker Review of Systems Review of Systems: [employer] System Assessment Plan pain: 0/3 Shortness of breath: 0/3 Anxiety: 1/3 Tiredness: 1/3 Palliative Performance Scale: 30% Physical Exam Constitutional: + frail appearing, cooperative and comfortable ENMT: Nose: + dry nasal mucous membranes Respiratory: normal respiratory effort Auscultation: + diminished lung sounds Cardiovascular: RRR, no murmur, no edema Extremities: normal capillary refill; no edema Gastrointestinal (Abdomen): normal bowel sounds, soft, nontender, no hepatosplenomegaly Skin: + skin tightening, + dry skin and + pallor Psychiatric: A+Ox3, euthymic affect Insight: good insight Judgement: g ood judgement Results & Data ([facility]) Vital Signs (Past 12 Hours) Vital Signs Temp Pulse Pulse Resp BP BP Pulse Ox 02/10/21 14:47 82 21 89/66 L 96 02/10/21 14:45 87 28 H 95 02/10/21 14:31 84 17 101/66 93 02/10/21 14:30 80 18 92 02/10/21 14:16 89 20 95/56 L 95 02/10/21 14:15 88 19 99 02/10/21 14:01 89 22 119/71 98 02/10/21 14:00 84 22 100 02/10/21 13:46 89 19 96 02/10/21 13:45 84 21 93/71 L 95 02/10/21 13:31 90 26 H 96 02/10/21 13:30 87 22 95/64 L 96 02/10/21 13:19 36.6 C 02/10/21 13:17 88 24 87 L 02/10/21 13:16 98 H 22 84/48 L 85 L 02/10/21 13:15 81 20 97 02/10/21 13:01 81 25 H 86/56 L 97 02/10/21 13:00 84 21 96 02/10/21 12:46 87 20 89 L 02/10/21 12:45 85 19 100/65 93 02/10/21 12:31 83 21 83/56 L 94 02/10/21 12:30 78 16 02/10/21 12:16 79 19 87 L 02/10/21 12:15 85 20 117/70 90 02/10/21 12:00 81 22 98/75 L 87 L 02/10/21 11:45 93 H 22 96/60 L 92 02/10/21 11:31 86 19 90 02/10/21 11:30 89 19 94/71 L 90 02/10/21 11:20 81 17 85 L 02/10/21 11:15 92 H 19 92/64 L 95 02/10/21 11:10 87 22 91 02/10/21 11:01 95 H 20 96 02/10/21 11:00 91 H 22 108/67 93 02/10/21 10:50 90 27 H 94 02/10/21 10:46 94 H 28 H 91/68 L 99 02/10/21 10:40 89 21 96 02/10/21 10:30 96 H 19 83 L 02/10/21 10:28 95 H 23 80/69 L 02/10/21 10:21 135 H 27 H 95/62 L 70 L 02/10/21 10:20 91 H 24 77 L 02/10/21 10:16 93 H 19 95/66 L 94 02/10/21 10:11 91 H 18 89/70 L 96 02/10/21 10:10 93 H 18 96 02/10/21 10:06 87 20 99/64 L 97 02/10/21 10:01 94 H 23 92/65 L 96 02/10/21 10:00 96 H 20 92 02/10/21 09:56 94 H 23 95/67 L 91 02/10/21 09:52 101 H 24 75/60 L 82 L 02/10/21 09:50 88 23 89 L 02/10/21 09:46 91 H 24 99/68 L 87 L 02/10/21 09:41 88 22 88/60 L 88 L 02/10/21 09:40 91 H 19 91 02/10/21 09:36 90 18 91/65 L 89 L 02/10/21 09:31 96 H 21 95/59 L 85 L 02/10/21 09:30 96 H 19 91 02/10/21 09:26 88 21 92/56 L 96 02/10/21 09:22 100 H 20 86/61 L 02/10/21 09:20 110 H 26 H 02/10/21 09:16 92 H 20 90/51 L 96 02/10/21 09:11 97 H 20 89/64 L 90 02/10/21 09:10 94 H 26 H 93 02/10/21 09:06 92 H 22 98/62 L 98 02/10/21 09:01 94 H 17 85/64 L 93 02/10/21 09:00 99 H 21 93 02/10/21 08:57 94 H 25 H 79/54 L 93 02/10/21 08:51 96 H 22 83/65 L 95 02/10/21 08:50 96 H 22 95 02/10/21 08:46 103 H 22 93/69 L 95 02/10/21 08:41 93 H 24 96/66 L 89 L 02/10/21 08:40 92 H 22 94 02/10/21 08:36 102 H 20 87/69 L 92 02/10/21 08:31 92 H 20 88/66 L 94 02/10/21 08:30 102 H 20 94 02/10/21 08:26 98 H 21 100/63 95 02/10/21 08:21 105 H 20 81/53 L 02/10/21 08:20 93 H 18 02/10/21 08:00 36.6 C 02/10/21 03:32 36.7 C 99 H 84/49 L PG Care Time/CCT Total # of Minutes Spent Total Time Spent with Patient: Total time spent is greater than 50% in coordination of care (as documented) at patient's floor/unit and/or counseling patient: 70 minutes with > 50% of that time spent assessing the patient, discussing goals of care, & collaborating with IDT Coding Level of Care Code 11039 Inpt Consult Level 3 Diagnoses Palliative care encounter Z51.5 End stage renal disease N18.6 Hypotension I95.9 Time Spent (min) 70
[2021-02-10] MEDS: MIDODRINE HCL 2.5 MG TAB PO SCH (17:23)
[2021-02-10] MEDS: ONDANSETRON INJ 2 MG/ML 2 ML VIAL IV PRN (20:19)
[2021-02-10] MEDS ORDERED: Nursing to Pharmacy Communication SCH (20:30)
[2021-02-10] MEDS: PIPERACILLIN/TAZOBACTAM 3.375 GM in DEXTROSE 5% 100 ML IV SCH (20:35)
[2021-02-10] MEDS ORDERED: CHOLECALCIFEROL 1,000 UNITS 25 MCG TAB PO SCH (21:00)
[2021-02-10] MEDS ORDERED: METOPROLOL SUCC 25MG EXT REL TAB PO SCH (21:00)
--- NOTE | 2021-02-10 22:34 | Electrocardiogram Report ---
Test Reason : Blood Pressure : / mmHG Vent. Rate : 076 BPM Atrial Rate : 076 BPM P-R Int : 200 ms QRS Dur : 200 ms QT Int : 480 ms P-R-T Axes : 000 -82 096 degrees QTc Int : 540 ms Atrial fibrillation Left axis deviation Right bundle branch block Anterolateral infarct , age undetermined Abnormal ECG When compared with ECG of 25-JAN-2021 12:28, Atrial fibrillation has replaced Sinus rhythm Right bundle branch block is now Present Anterolateral infarct is now Present Confirmed by Adelfo Marsh ([id number]) on 02/10/2021 10:34:32 PM Referred By: REFERRED SELF Confirmed By:Adelfo Marsh
--- NOTE | 2021-02-10 22:40 | Electrocardiogram Report ---
Test Reason : Blood Pressure : / mmHG Vent. Rate : 098 BPM Atrial Rate : 098 BPM P-R Int : 242 ms QRS Dur : 130 ms QT Int : 374 ms P-R-T Axes : 000 -70 112 degrees QTc Int : 477 ms Sinus rhythm with 1st degree A-V block with Premature atrial complexes Left axis deviation Right bundle branch block T wave abnormality, consider lateral ischemia Abnormal ECG When compared with ECG of 09-FEB-2021 17:54, Sinus rhythm has replaced Atrial fibrillation Confirmed by Adelfo Marsh ([id number]) on 02/10/2021 10:39:39 PM Referred By: REFERRED SELF Confirmed By:Adelfo Marsh
--- NOTE | 2021-02-10 22:45 | Electrocardiogram Report ---
Test Reason : Blood Pressure : / mmHG Vent. Rate : 106 BPM Atrial Rate : 111 BPM P-R Int : 000 ms QRS Dur : 164 ms QT Int : 358 ms P-R-T Axes : 000 265 089 degrees QTc Int : 475 ms Atrial fibrillation with rapid ventricular response Right bundle branch block Anterolateral infarct (cited on or before 09-FEB-2021) Abnormal ECG When compared with ECG of 09-Feb-2021 21:33, Atrial fibrillation has replaced Sinus rhythm Confirmed by Adelfo Marsh ([id number] on 02/10/2021 10:45:14 PM Referred By: REFERRED SELF Confirmed By:Adelfo Marsh
[2021-02-11] MEDS ORDERED: WITCH HAZEL/GLYCERIN 40 PADS/JAR (TUCKS) EXT PRN (00:35)
[2021-02-11] MEDS ORDERED: INSULIN ASPART 100 UNITS/ML 3 ML PEN SC SCH ×2 (02:00→08:00)
[2021-02-11] MEDS: ONDANSETRON INJ 2 MG/ML 2 ML VIAL IV PRN ×2 (02:03→08:10)
[2021-02-11 05:38] LABS: Prothrombin Time 64.1 Seconds (9.0-12.0)
[2021-02-11 05:49] LABS: Hematocrit (blood only) 33.4 % (42-52); Hemoglobin 10.7 g/dL (14.0-18.0); Mean Corpuscular Hemoglobin 35.3 pg (25-34); Mean Corpuscular Volume 110.2 fL (80-100); Mean Platelet Volume 13.6 fL (7.4-10.4); Platelet Count 89 K/uL (130-400); RDW Coefficient of Variation 17.7 % (11.5-14.5); RDW Standard Deviation 70.9 fL (36.4-46.3); Red Blood Count 3.03 M/uL (4.7-6.1); White Blood Count 15.42 K/uL (4.8-10.8)
[2021-02-11] MEDS: MIDODRINE HCL 2.5 MG TAB PO SCH (05:49)
[2021-02-11 05:50] LABS: Basophils # (auto) 0.01 K/uL (0-0.2); Basophils % (auto) 0.1 %; Immature Granulocytes % (auto) 0.6 %; Lymphocytes # (auto) 0.66 K/uL (1.2-3.4); Lymphocytes % (auto) 4.3 %; Macrocytosis Present; Monocytes # (auto) 1.44 K/uL (0.11-0.59); Monocytes % (auto) 9.3 %; Neutrophils # (auto) 13.21 K/uL (1.4-6.5); Neutrophils % (auto) 85.7 %; Platelet Estimate Decreased (Normal)
[2021-02-11 05:53] LABS: INR 7.4 (0.9-1.1)
[2021-02-11 05:57] LABS: Calcium 7.9 mg/dl (8.5-10.1); Creatinine Clr Calc Pharmacy 11.6 ml/min; Est GFR (African American) 10.6 ml/min; Est GFR (Non-African American) 9.1 ml/min; Magnesium 2.5 mg/dl (1.8-2.4); Phosphorus 8.3 mg/dl (2.5-4.9); Potassium 5.3 mmol/L (3.5-5.1)
[2021-02-11] MEDS: PHENYLEPHRINE HCL 20 MG in SODIUM CHLORIDE 0.9% 500 ML IV SCH ×2 (06:39→06:41)
[2021-02-11] MEDS ORDERED: PHYTONADIONE 5 MG TAB PO STA (07:29)
[2021-02-11] MEDS ORDERED: INSULIN GLARGINE SOLOSTAR 100 UNITS/ML 3 ML PEN SC ONE (08:00)
[2021-02-11] MEDS: AMIODARONE / D5W 360 MG/200 ML BAG IV SCH (08:19)
[2021-02-11] MEDS: PIPERACILLIN/TAZOBACTAM 3.375 GM in DEXTROSE 5% 100 ML IV SCH (08:30)
--- NOTE | 2021-02-11 09:06 | Cardiology Progress Note ---
Date of Service February 11, 2021 Assessment & Plan (1) Non-ST elevation (NSTEMI) myocardial infarction: (2) PAF (paroxysmal atrial fibrillation): (3) RBBB: (4) Acute hyperkalemia: (5) ESRD (end stage renal disease) on dialysis: NSTEMI: -Patient with non-ST segment elevation myocardial infarction in August,, treated medically, LVEF moderately reduced at that time in the range of around 30-35%. -Echo 02/10/21 reveals very severe left ventricular systolic dysfunction, LVEF less than 20%, severe diffuse hypokinesis to akinesis with sparing of the basal segments. -He is not on aspirin now, or chronically, due to concerns of aspirin allergy. -Previous treatment with clopidogrel after his event in August was subsequently discontinued due to melena. -Troponin continues to trend up, 32 ng/ml am of 02/11/21. -EKG this am without acute ischemic changes, age undetermined anterior infarct pattern with poor R wave progression noted. Case discussed with Dr. Craig of critical care. Pt on low dose phenylephrine 0.1 mcg/kg/min. Will wean as tolerated. Midodrine started. I would predict that there is no culprit vessel amenable to PCI and that cardiac catheterization may actually be more harmful than helpful in this clinical case. PAROXYSMAL ATRIAL FIBRILLATION: Patient with history of atrial flutter for which he underwent remote ablation. Presented with AF, RVR, RBBB. EKG am of 02/12/12= SR long first degree AVB, RBBB has resolved. -Continue amiodarone gtt for now. -when able to tolerate PO, will change to amiodarone 200 mg by mouth two times per day. INR 7.4 off of coumadin, IV vitamin K administered. Platelet count 89. RIGHT BUNDLE BRANCH BLOCK: EKG with new right bundle branch block, evolution of anterolateral infarct pattern. -RBBB resolved, Am of 02/11/21 ACUTE HYPERKALEMIA: -Presenting potassium of 6.9 mmol/L improved to 4.7 status post emergent hemodialysis . -Has trended back up to 5.3 . ESRD ON HEMODIALYSIS: -Fluid balance has been challenging on a chronic basis given relative hypotension for quite some time as an outpatient. Overall, patient has had progressive illness over the last year. Prognosis is considered poor. Admission and Anticipated Discharge Date Admission Date: February 09, 2021 Subjective Bill is seen in cardiology follow up. He has significant nausea this am after two bites of oatmeal. Zofran just administered. He is back in SR. BP improved. Physical Exam Physical Exam: Temp Pulse Resp BP Pulse Ox 36.4 C L 70 17 most recent 109/6 5 93 02/11/21 04:00 02/11/21 06:31 02/11/21 06:31 02/11/21 8:57 am 02/11/21 06:31 Constitutional: ill in appearance Respiratory: Auscultation: + diminished lung sounds (decreased BS at the bases ) Cardiovascular: Rate/Rhythm: regular rhythm Heart Sounds: no murmur Vessels: no JVD Extremities: no edema Gastrointestinal (Abdomen): normal bowel sounds, soft, nontender, no hepatosplenomegaly Neurologic: PERRL, EOMI, accommodation nl, no face palsy, no dysarthria Results & Data ([facility]) Vital Signs (Past 12 Hours) Vital Signs Temp Pulse Resp BP Pulse Ox 02/11/21 06:31 70 17 89/57 L 93 02/11/21 06:02 71 19 94/56 L 97 02/11/21 05:46 66 15 86/56 L 96 02/11/21 05:16 67 17 95/59 L 94 02/11/21 04:46 68 16 92/60 L 93 02/11/21 04:31 68 16 105/64 92 02/11/21 04:16 71 16 103/65 90 02/11/21 04:01 76 15 96/60 L 96 02/11/21 04:00 36.4 C L 02/11/21 03:46 75 16 101/61 97 02/11/21 03:31 82 19 102/61 95 02/11/21 03:16 77 15 97/69 L 97 02/11/21 03:01 77 16 101/63 97 02/11/21 02:46 80 16 101/68 95 02/11/21 02:17 83 24 98/59 L 93 02/11/21 01:58 77 26 H 98/66 L 92 02/11/21 01:16 72 19 100/67 91 02/11/21 00:31 85 18 110/71 93 02/11/21 00:21 36.6 C 02/11/21 00:16 76 20 99/61 L 93 02/11/21 00:01 82 20 107/68 02/10/21 23:31 79 17 101/72 92 02/10/21 23:26 75 02/10/21 23:02 85 24 95/64 L 97 02/10/21 22:46 80 17 109/69 93 02/10/21 22:16 83 17 113/72 92 02/10/21 21:46 83 18 113/74 02/10/21 21:31 87 19 91/56 L 95 02/10/21 21:01 89 20 109/75 Laboratory Results Cardiac Enzymes 02/10/21 02/11/21 Range/Units 08:15 05:11 Troponin I 20.300 H* 32.500 H* (0-0.045) ng/ml Coagulation 02/11/21 Range/Units 05:11 PT 64.1 H (9.0-12.0) Seconds CBC 02/11/21 Range/Units 05:11 WBC 15.42 H (4.8-10.8) K/uL RBC 3.03 L (4.7-6.1) M/uL Hgb 10.7 L (14.0-18.0) g/dL Hct 33.4 L (42-52) % Plt Count 89 L (130-400) K/uL Neut # (Auto) 13.21 H (1.4-6.5) K/uL Lymph # (Auto) 0.66 L (1.2-3.4) K/uL [place] # (Auto) 1.44 H (0.11-0.59) K/uL Eos # (Auto) 0.00 (0-0.5) K/uL Baso # (Auto) 0.01 (0-0.2) K/uL Comprehensive Metabolic Panel 02/11/21 Range/Units 05:11 Sodium 132 L (136-145) mmol/L Potassium 5.3 H (3.5-5.1) mmol/L Chloride 96 L (98-107) mmol/L Carbon Dioxide 23 (21-32) mmol/L BUN 58 H (7-18) mg/dl Creatinine 5.28 H* D (0.6-1.4) mg/dl Glucose 171 H (70-99) mg/dl Calcium 7.9 L (8.5-10.1) mg/dl Intake and Output 02/10/21 02/11/21 02/11/21 22:59 06:59 14:59 Intake Total 3059.371 / 5126.586 972.285 / 5126.586 23.537 / 23.537 Output Total 0 / 56 Balance 3058.371 / 5070.586 972.285 / 5070.586 23.537 / 23.537 Intake: IV 2889.371 / 4476.586 792.285 / 4476.586 23.537 / 23.537 Amiodarone / D5w 360 mg In 200 306.637 / 494.755 176.463 / 494.755 23.537 / 23.537 ml @ 0.5 MG/MIN 16.667 mls/hr IV .Q12H JAMES Rx#:[id number] Heparin Sodium/Dextrose 25,000 500 / 500 units In 500 ml @ 950 UNITS/HR 19 mls/hr IV .Q24H JAMES Rx#: [id number] Norepinephrine/D5w 8 mg In 508 416.843 / 508.000 ml @ 0 MCG/KG/MIN IV .Q0M JAMES Rx#:[id number] Phenylephrine HCl 20 mg In 459.882 / 502.000 Dextrose 5% 500 ml @ 0.7 MCG/KG /MIN 95.616 mls/hr IV .Q5H16M JAMES Rx#:[id number] Phenylephrine HCl 20 mg In 954.682 / 1455.504 500.822 / 1455.504 Sodium Chloride 0.9% 500 ml @ 0 .2 MCG/KG/MIN 27.319 mls/hr IV .[id number] JAMES Rx#:[id number] Piperacillin/Tazobactam 3.375 115 / 230 115 / 230 gm In Dextrose 5% 100 ml @ 28. 75 mls/hr IV Q12H JAMES Rx#: [id number] Vasopressin 20 units In 0.9 % 136.327 / 136.327 Sodium Chloride 100 ml @ 0 UNIT /MIN IV .Q0M JAMES Rx#:[id number] Oral 170 / 650 180 / 650 Output: Urine 0 / 0 0 / 0 # Bowel Movements 1 / 6 Other: Weight 94.2 kg Weight Measurement Method Built in Bedscale
[2021-02-11] MEDS ORDERED: PROMETHAZINE HCL 12.5 MG in SODIUM CHLORIDE 0.9% 50 ML IV ONE (09:45)
[2021-02-11] MEDS: FAMOTIDINE 20 MG in SYRINGE 3 ML IV SCH (10:04)
[2021-02-11] MEDS ORDERED: PROMETHAZINE HCL 12.5 MG in SODIUM CHLORIDE 0.9% 50 ML IV PRN (10:18)
[2021-02-11] MEDS ORDERED: PHYTONADIONE 2.5 MG in SODIUM CHLORIDE 0.9% 50 ML IV ONE (10:30)
[2021-02-11] MEDS: ATORVASTATIN 40 MG TAB PO SCH ×2 (11:06→11:24)
[2021-02-11] MEDS: SEVELAMER HCL 800 MG TABLET PO SCH ×2 (11:06→11:24)
[2021-02-11] MEDS: NEPHROCAPS PO SCH ×2 (11:06→11:24)
--- NOTE | 2021-02-11 11:06 | Nephrology Progress Note ---
Date of Service February 11, 2021 Assessment & Plan Admission and Anticipated Discharge Date Admission Date: February 09, 2021 Subjective No new issues. Blood pressure is still running low. also complaining of nausea. GENERAL: Elderly white male who seems to be very weak and tired at this time, but he is not in any respiratory distress. HEENT: Mucous membranes moist. NECK: Supple. No jugular venous distention. CHEST: Bilaterally decreased breath sounds, poor inspiratory effort limiting the quality of the exam. CARDIOVASCULAR: S1 and S2 irregular, systolic murmur heard. ABDOMEN: Soft, nontender. EXTREMITIES: Show chronic lower extremity edema with chronic skin changes from venous insufficiency. NEUROLOGIC: He is awake, alert, oriented, normal speech. Moving all 4 extremities, following command. LABORATORY TESTS: potassium 5.3 this morning ASSESSMENT AND PLAN: An 85-year-old male admitted with weakness, nausea, vomiting, diarrhea. He was found to have hyperkalemia with EKG changes as well as lactic acidosis and acute myocardial infarction. 1. End-stage renal disease: He is a chronic dialysis patient and gets dialysis Sunday, , Sunday. He missed dialysis on Sunday and as a result, had a high potassium at the time of admission. Fortunately, after dialysis, potassium has normalized. this morning it is 5.3 which in a long-term dialysis patient is not really that high. medical management of mild high potassium today. plan for 4 hours dialysis tomorrow on a 2K bath. is having low blood pressure with nausea. 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 Results & Data ([facility]) Vital Signs (Past 12 Hours) Vital Signs Temp Pulse Resp BP Pulse Ox 02/11/21 11:00 71 13 91 02/11/21 10:47 71 15 102/62 91 02/11/21 10:45 73 15 92 02/11/21 10:32 78 18 99/63 L 93 02/11/21 10:30 79 16 94 02/11/21 10:17 79 18 116/68 91 02/11/21 10:15 78 18 92 02/11/21 10:02 79 19 100/63 93 02/11/21 10:00 71 18 93 02/11/21 09:47 70 20 88/57 L 93 02/11/21 09:45 70 18 88 L 02/11/21 09:33 70 22 91 02/11/21 09:32 70 19 99/60 L 93 02/11/21 09:30 70 17 90 02/11/21 09:17 71 14 98/56 L 94 02/11/21 09:15 71 18 95 02/11/21 09:02 73 26 H 93/64 L 93 02/11/21 09:00 36.6 C 72 22 92 02/11/21 08:47 74 21 109/65 96 02/11/21 08:45 75 22 98 02/11/21 08:33 75 24 87/60 L 90 02/11/21 08:30 74 19 90 02/11/21 08:15 74 22 93 02/11/21 08:03 73 28 H 93/57 L 91 02/11/21 08:00 76 26 H 90 02/11/21 07:47 72 17 104/56 L 94 02/11/21 07:45 71 22 94 02/11/21 07:32 71 25 H 111/58 L 93 02/11/21 07:30 71 22 96 02/11/21 07:16 71 18 93/69 L 92 02/11/21 07:15 71 17 91 02/11/21 07:01 70 17 100/59 L 97 02/11/21 07:00 70 18 99 02/11/21 06:46 72 18 104/56 L 92 02/11/21 06:45 70 16 90 02/11/21 06:32 71 18 95 02/11/21 06:31 70 17 89/57 L 93 02/11/21 06:02 71 19 94/56 L 97 02/11/21 05:46 66 15 86/56 L 96 02/11/21 05:16 67 17 95/59 L 94 02/11/21 04:46 68 16 92/60 L 93 02/11/21 04:31 68 16 105/64 92 02/11/21 04:16 71 16 103/65 90 02/11/21 04:01 76 15 96/60 L 96 02/11/21 04:00 36.4 C L 02/11/21 03:46 75 16 101/61 97 02/11/21 03:31 82 19 102/61 95 02/11/21 03:16 77 15 97/69 L 97 02/11/21 03:01 77 16 101/63 97 02/11/21 02:46 80 16 101/68 95 02/11/21 02:17 83 24 98/59 L 93 02/11/21 01:58 77 26 H 98/66 L 92 02/11/21 01:16 72 19 100/67 91 02/11/21 00:31 85 18 110/71 93 02/11/21 00:21 36.6 C 02/11/21 00:16 76 20 99/61 L 93 02/11/21 00:01 82 20 107/68 02/10/21 23:31 79 17 101/72 92 02/10/21 23:26 75
[2021-02-11] MEDS: PATIROMER CALCIUM SORBITEX 8.4 GM PACK PO SCH ×2 (11:07→11:24)
[2021-02-11] MEDS ORDERED: GLYCOPYRROLATE 0.2 MG/ML VIAL IV PRN (11:27)
--- NOTE | 2021-02-11 11:42 | Palliative Care Progress Note ---
Date of Service February 11, 2021 Assessment & Plan (1) Palliative care encounter: David has expressed that he does not want to have further treatment and is ready for his dying time. I met with four of his children in person and Rocio, on speaker phone. They want to respect his wishes and want him to have comfort directed care. We talked about what to expect. They will take turns coming back to see him briefly and then pressor support will be withdrawn. If he stabilizes he will be transfered to the floor where family can visit with him. Discussed with RN. Notified Dr. Mcneill (2) End stage renal disease: (3) CHF (congestive heart failure): (4) Diabetes mellitus type 2 with complications: (5) Non-ST elevation (NSTEMI) myocardial infarction: Admission and Anticipated Discharge Date Admission Date: February 09, 2021 Subjective Lethargic at times. He was too sleepy for oral meds this morning. BP reasonably stable on pressors. He c/o nausea earlier. He has both phenergan and zofran available. Review of Systems Review of Systems: [place] Symptom Assessment Scale Pain 0/3 Dyspnea 1/3 Fatigue2/3 Nausea 2/3 Anxiety 0/3 Drowsiness 2/3 Palliative Performance Score 20% Physical Exam Constitutional: + ill appearing and + lethargic Respiratory: + uses accessory muscles Cardiovascular: Rate/Rhythm: + irregularly irregular Extremities: + edema Gastrointestinal (Abdomen): Percussion/Palpation: abdomen soft; abdomen nontender Skin: vascular skin changes Results & Data ([facility]) Vital Signs (Past 12 Hours) Vital Signs Temp Pulse Resp BP Pulse Ox 02/11/21 11:00 71 13 91 02/11/21 10:47 71 15 102/62 91 02/11/21 10:45 73 15 92 02/11/21 10:32 78 18 99/63 L 93 02/11/21 10:30 79 16 94 02/11/21 10:17 79 18 116/68 91 02/11/21 10:15 78 18 92 02/11/21 10:02 79 19 100/63 93 02/11/21 10:00 71 18 93 02/11/21 09:47 70 20 88/57 L 93 02/11/21 09:45 70 18 88 L 02/11/21 09:33 70 22 91 02/11/21 09:32 70 19 99/60 L 93 02/11/21 09:30 70 17 90 02/11/21 09:17 71 14 98/56 L 94 02/11/21 09:15 71 18 95 02/11/21 09:02 73 26 H 93/64 L 93 02/11/21 09:00 97.9 F 72 22 92 02/11/21 08:47 74 21 109/65 96 02/11/21 08:45 75 22 98 02/11/21 08:33 75 24 87/60 L 90 02/11/21 08:30 74 19 90 02/11/21 08:15 74 22 93 02/11/21 08:03 73 28 H 93/57 L 91 02/11/21 08:00 76 26 H 90 02/11/21 07:47 72 17 104/56 L 94 02/11/21 07:45 71 22 94 02/11/21 07:32 71 25 H 111/58 L 93 02/11/21 07:30 71 22 96 02/11/21 07:16 71 18 93/69 L 92 02/11/21 07:15 71 17 91 02/11/21 07:01 70 17 100/59 L 97 02/11/21 07:00 70 18 99 02/11/21 06:46 72 18 104/56 L 92 02/11/21 06:45 70 16 90 02/11/21 06:32 71 18 95 02/11/21 06:31 70 17 89/57 L 93 02/11/21 06:02 71 19 94/56 L 97 02/11/21 05:46 66 15 86/56 L 96 02/11/21 05:16 67 17 95/59 L 94 02/11/21 04:46 68 16 92/60 L 93 02/11/21 04:31 68 16 105/64 92 02/11/21 04:16 71 16 103/65 90 02/11/21 04:01 76 15 96/60 L 96 02/11/21 04:00 97.5 F L 02/11/21 03:46 75 16 101/61 97 02/11/21 03:31 82 19 102/61 95 02/11/21 03:16 77 15 97/69 L 97 02/11/21 03:01 77 16 101/63 97 02/11/21 02:46 80 16 101/68 95 02/11/21 02:17 83 24 98/59 L 93 02/11/21 01:58 77 26 H 98/66 L 92 02/11/21 01:16 72 19 100/67 91 02/11/21 00:31 85 18 110/71 93 02/11/21 00:21 97.9 F 02/11/21 00:16 76 20 99/61 L 93 02/11/21 00:01 82 20 107/68 PG Care Time/CCT Total # of Minutes Spent Total Time Spent with Patient: Total time spent is greater than 50% in coordination of care (as documented) at patient's floor/unit and/or counseling patient:total time spent 65 minutes with more than 50% of time spent on goals of care, prognosis, family meeting with update and education, coordination of care, symptom management Coding Level of Care Code 56184 Subseq Hosp Care Lvl 3 Diagnoses Palliative care encounter Z51.5 End stage renal disease N18.6 CHF (congestive heart failure) I50.9 Diabetes mellitus type 2 with complications E11.8 Non-ST elevation (NSTEMI) myocardial infarction I21.4 Time Spent (min) 65
[2021-02-11] MEDS: LORazepam 0.5 MG/1 ML VIAL IV PRN (12:33)
--- NOTE | 2021-02-11 13:57 | Critical Care Progress Note ---
Date of Service February 11, 2021 Assessment & Plan (1) Admitted to intensive care unit: Reason Critically Ill: 85-year-old male with ESRD presents to the ICU in need of emergent dialysis after missing dialysis session yesterday. Patient has multiple lab abnormalities including elevated potassium, troponin, CPK, and lactate and metabolic acidosis. Neuro - [facility] ICU: Negative Chronic back painlidocaine topical patch Cardiac - NSTEMIpatient with elevated troponin of 20, now up trended to 23. No chest pain, no ST elevations on EKG. -Patient was admitted with NSTEMI in August where his troponin peaked at 80, he refused cardiac catheterization at that time. -2D echo done 02/10/2021 shows EF 50-20% -Troponins are trending down. No intervention from cardiology perspective. -Allergy to ASA. Continue statin -Continuous monitor on telemetry Shock -Random cortisol 51.4 -Patient was on blood pressure medications at home I could be one of the reason -Continue with vasopressor support to keep MAP greater than 65 Proximal A. fib -Rate control medication on hold secondary to hypotension -Continue with amiodarone Respiratory - No history of pulmonary disease, currently maintaining oxygen saturation on room air. No respiratory distress. Continuous monitoring on pulse ox O2 supplementation to keep oxygen 88-92% GI - Heart healthy diabetic diet RENAL/LYTES - ESRD/hyperkalemia/metabolic acidosislast dialysis session Sunday, presents with potassium 6.8, pH 7.20, LA 3.2, creatinine of 8, anion gap 16 -Got emergent dialysis on 02/09/2021 -Continue sevelamer - Anuric ENDO - History of diabetes?Does not take No history of thyroid disease, TSH within normal limits HEME - H&H stable with hemoglobin 11, consistent with prior studies. Monitor routine CBCs and transfuse if indicated. Thrombocytopenia Continue to monitor ID - Sepsis?Patient with WBC 15, elevated lactate 3.2. Mildly elevated pro calcitonin although he has ESRD. Afebrile -Patient reports multiple loose stools in the past 48 hours and has history of recurrent C. difficile --> C. difficile negative this admission -No signs of infectious disease on chest imaging -Unable to obtain UA due to anuria -COVID-19 negative -Blood cultures pending, procalcitonin 0.86 in end-stage renal disease patient insignificant --DNR/DNI --Prophylaxis VTE: On warfarin at home GI: Pepcid Lines: Right IJ Diet: Cardiac renal Plan: In/out: + 3 L, patient is end-stage renal disease --> no urine output Patient is on amiodarone drip 0.5. Once the patient is able to tolerate p.o. we will give him amiodarone 200 mg twice daily p.o. and DC the drip Still on phenylephrine 0.1 at the time of examination. Try to titrate off Patient has been started on midodrine 5 mg twice daily will increase it to 3 times daily Continue with Zosyn for total of 48 hours and then stop it as there is no clear signs of infection. Patient's INR today is 7.4. We will give vitamin K 2.5 IV. Patient's potassium is elevated at 5.3. Repeat BMP later today. Patient is already on patiromer hopefully he will be able to tolerate p.o. diet At the potassium still stays high we will start the patient on a bicarb drip at a low dose. Case was discussed with nephrology. Overall prognosis of the patient is guarded Palliative care consultation appreciated. I have personally spent 38 minutes of critical care time in the direct management of this patient. This is a life/limb threatening event. This includes time spent evaluating patient, direct bedside care, chart review, placing orders, interpretation of diagnostic studies, discussion with consultants, patient, and family members, as well as other required patient management activities. This time is exclusive of all separately billable procedures, and teaching time and separate from and in addition to any other critical care service time. Please note the above document was generated using voice recognition software. It may contain grammatical, syntax or spelling errors. (2) CHF (congestive heart failure): (3) PAF (paroxysmal atrial fibrillation): (4) ESRD (end stage renal disease) on dialysis: (5) Acute hyperkalemia: (6) RBBB: Admission and Anticipated Discharge Date Admission Date: February 09, 2021 Subjective Patient seen and examined at bedside. 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 He has been throwing up which is mostly clear. Denies any abdominal pain. States that he feels lousy. Denies any headache, denies any shortness of breath. No chest pain, no headache, no dizziness. Review of Systems Review of Systems: All systems reviewed & are unremarkable except as noted in Subjective Physical Exam Physical Exam: Constitutional: No acute distress HEENT: EOMI, PERRLA Respiratory system: Decreased air entry bilaterally, positive crackles bilateral lower lobes, no wheeze, no rhonchi CVS: S1-S2 positive, no murmurs or gallops, distant heart sounds, irregular Abdomen: Soft, nontender, nondistended, positive bowel sounds x4 Extremities: +1 pulses bilaterally radialis/ dorsalis pedis, no cyanosis, +2 ankle edema, lymphedema also present bilateral lower extremities Neuro: Awake alert oriented x3 Psych: Normal mood and affect G/U: No [place] Skin: no rashes, warm and dry Lymphatic: no cervical or axillary lymphadenopathy Results & Data Results & Data ([facility]) Vital Signs (Past 12 Hours) Vital Signs Temp Pulse Resp BP Pulse Ox 02/11/21 11:00 71 13 91 02/11/21 10:47 71 15 102/62 91 02/11/21 10:45 73 15 92 02/11/21 10:32 78 18 99/63 L 93 02/11/21 10:30 79 16 94 02/11/21 10:17 79 18 116/68 91 02/11/21 10:15 78 18 92 02/11/21 10:02 79 19 100/63 93 02/11/21 10:00 71 18 93 02/11/21 09:47 70 20 88/57 L 93 02/11/21 09:45 70 18 88 L 02/11/21 09:33 70 22 91 02/11/21 09:32 70 19 99/60 L 93 02/11/21 09:30 70 17 90 02/11/21 09:17 71 14 98/56 L 94 02/11/21 09:15 71 18 95 02/11/21 09:02 73 26 H 93/64 L 93 02/11/21 09:00 36.6 C 72 22 92 02/11/21 08:47 74 21 109/65 96 02/11/21 08:45 75 22 98 02/11/21 08:33 75 24 87/60 L 90 02/11/21 08:30 74 19 90 02/11/21 08:15 74 22 93 02/11/21 08:03 73 28 H 93/57 L 91 02/11/21 08:00 76 26 H 90 02/11/21 07:47 72 17 104/56 L 94 02/11/21 07:45 71 22 94 02/11/21 07:32 71 25 H 111/58 L 93 02/11/21 07:30 71 22 96 02/11/21 07:16 71 18 93/69 L 92 02/11/21 07:15 71 17 91 02/11/21 07:01 70 17 100/59 L 97 02/11/21 07:00 70 18 99 02/11/21 06:46 72 18 104/56 L 92 02/11/21 06:45 70 16 90 02/11/21 06:32 71 18 95 02/11/21 06:31 70 17 89/57 L 93 02/11/21 06:02 71 19 94/56 L 97 02/11/21 05:46 66 15 86/56 L 96 02/11/21 05:16 67 17 95/59 L 94 02/11/21 04:46 68 16 92/60 L 93 02/11/21 04:31 68 16 105/64 92 02/11/21 04:16 71 16 103/65 90 02/11/21 04:01 76 15 96/60 L 96 02/11/21 04:00 36.4 C L 02/11/21 03:46 75 16 101/61 97 02/11/21 03:31 82 19 102/61 95 02/11/21 03:16 77 15 97/69 L 97 02/11/21 03:01 77 16 101/63 97 02/11/21 02:46 80 16 101/68 95 02/11/21 02:17 83 24 98/59 L 93 02/11/21 01:58 77 26 H 98/66 L 92 02/11/21 05:11 02/11/21 05:11 Coding Level of Care Code Critical Care 1st 30-74 mins Diagnoses Admitted to intensive care unit Z78.9 CHF (congestive heart failure) I50.9 PAF (paroxysmal atrial fibrillation) I48.0 ESRD (end stage renal disease) on dialysis N18.6; Z99.2 Acute hyperkalemia E87.5 RBBB I45.10 Time Spent (min) 38
--- NOTE | 2021-02-11 15:18 | Communication Note ---
Date of Service: February 11, 2021 admitted with acute hyperkalemia with missed dialysis, found to be non-ST elevated NC with troponin elevation >30. No anginal symptoms Echo shows worsening of ejection fraction 15%(non-ST elevated NC on August 2020, EF was 30%, patient was medically managed Admitted with hypotension, severe metabolic acidosis, required IV pressors. Started on IV amiodarone for A. fib RVR, Patient's overall prognosis remains extremely poor, palliative care consulted, appreciate input After discussion with patient and his family members, patient wishes not to continue dialysis anymore. Wants to be comfortable, does not want any intervention, no lab draws All labs, medication discontinued, comfort care orders for symptom management only: As needed Roxanol, IV Dilaudid for pain or shortness of breath, Ativan as needed for anxiety, Patient been off pressor Transferred out of ICU to medical surgical floor on comfort care Very poor prognosis, with no dialysis life expectancy could be few days to week. Patient is DNR/DNI Anita Mcneill MD
[2021-02-11] MEDS ORDERED: SEVELAMER HCL 800 MG TABLET PO SCH (16:30)
--- NOTE | 2021-02-11 17:45 | Hospitalist Progress Note ---
Date of Service February 11, 2021 Assessment & Plan (1) Acute hyperkalemia: Admitted with hyperkalemia potassium more than 6, with EKG change. Underwent emergent dialysis on admission. Patient aware of his poor prognosis, with worsening of cardiac function, non-ST elevated [place], has been on dialysis for past several years Had extremely poor quality of life, Appreciate input from palliative care Treatments transition to comfort care hospice only, does not want to continue dialysis (2) End stage renal disease: Has been on dialysis for last 5 yrs Currently on comfort care, no more dialysis for lab draw (3) Non-ST elevation (NSTEMI) myocardial infarction: Elevated troponin more than 20. Echo shows worsening of LV function reduced to 15%, Recent history of non-ST elevated [place] on August 2020, ejection fraction was 30%, was treated medically Cardiac angiogram/intervention was noted to be too high risk, at this point, Patient does not have any angina symptoms. Appreciate input from cardiology, Overall prognosis remains extremely poor, patient opted for comfort care hospice Continue palliative/comfort care, life expectancy very poor few days to a week. Admission and Anticipated Discharge Date Admission Date: February 09, 2021 Subjective Patient is transition to hospice/comfort care, Physical Exam Physical Exam: Physical exam: General: Chronically ill-appearing, no apparent distress HEENT: Anicteric sclera Heart: Regular, +12 lower extremity edema Lungs: Diminished, occasional rales in base Abdomen: Soft nontender, Extremity: No cyanosis or deformity no rash Neuro: No focal neurological deficit normal speech, generalized weakness Psych: Alert awake oriented x3, normal affect Results & Data Results & Data ([facility]) Vital Signs (Past 12 Hours) Vital Signs Temp Pulse Resp BP Pulse Ox 02/11/21 14:02 70 16 104/58 L 89 L 02/11/21 14:00 71 20 90 02/11/21 13:47 71 15 92/62 L 92 02/11/21 13:32 70 17 98/61 L 91 02/11/21 13:17 70 16 98/60 L 94 02/11/21 13:02 73 16 93/63 L 92 02/11/21 13:00 73 19 91 02/11/21 12:47 76 16 105/67 92 02/11/21 12:32 76 20 106/69 93 02/11/21 12:18 78 18 104/68 94 02/11/21 12:02 77 13 103/67 95 02/11/21 12:00 77 24 94 02/11/21 11:47 78 23 119/62 95 02/11/21 11:33 80 22 104/60 94 02/11/21 11:17 78 24 96/62 L 100 02/11/21 11:02 74 15 94/62 L 94 02/11/21 11:00 71 13 91 02/11/21 10:47 71 15 102/62 91 02/11/21 10:45 73 15 92 02/11/21 10:32 78 18 99/63 L 93 02/11/21 10:30 79 16 94 02/11/21 10:17 79 18 116/68 91 02/11/21 10:15 78 18 92 02/11/21 10:02 79 19 100/63 93 02/11/21 10:00 71 18 93 02/11/21 09:47 70 20 88/57 L 93 02/11/21 09:45 70 18 88 L 02/11/21 09:33 70 22 91 02/11/21 09:32 70 19 99/60 L 93 02/11/21 09:30 70 17 90 02/11/21 09:17 71 14 98/56 L 94 02/11/21 09:15 71 18 95 02/11/21 09:02 73 26 H 93/64 L 93 02/11/21 09:00 36.6 C 72 22 92 02/11/21 08:47 74 21 109/65 96 02/11/21 08:45 75 22 98 02/11/21 08:33 75 24 87/60 L 90 02/11/21 08:30 74 19 90 02/11/21 08:15 74 22 93 02/11/21 08:03 73 28 H 93/57 L 91 02/11/21 08:00 76 26 H 90 02/11/21 07:47 72 17 104/56 L 94 02/11/21 07:45 71 22 94 02/11/21 07:32 71 25 H 111/58 L 93 02/11/21 07:30 71 22 96 02/11/21 07:16 71 18 93/69 L 92 02/11/21 07:15 71 17 91 02/11/21 07:01 70 17 100/59 L 97 02/11/21 07:00 70 18 99 02/11/21 06:46 72 18 104/56 L 92 02/11/21 06:45 70 16 90 02/11/21 06:32 71 18 95 02/11/21 06:31 70 17 89/57 L 93 02/11/21 06:02 71 19 94/56 L 97 02/11/21 05:46 66 15 86/56 L 96
[2021-02-11] MEDS: INSULIN ASPART 100 UNITS/ML 3 ML PEN SC SCH (19:03)
[2021-02-11] MEDS ORDERED: INSULIN GLARGINE SOLOSTAR 100 UNITS/ML 3 ML PEN SC SCH (21:00)
--- NOTE | 2021-02-12 05:56 | Electrocardiogram Report ---
Test Reason : Blood Pressure : / mmHG Vent. Rate : 070 BPM Atrial Rate : 070 BPM P-R Int : 164 ms QRS Dur : 124 ms QT Int : 452 ms P-R-T Axes : 000 -77 111 degrees QTc Int : 488 ms Normal sinus rhythm Left axis deviation Cannot rule out Anterior infarct (cited on or before 10-FEB-2021) Abnormal ECG When compared with ECG of 10-FEB-2021 05:06, Sinus rhythm has replaced Atrial fibrillation Vent. rate has decreased BY 36 BPM Right bundle branch block is no longer Present Questionable change in initial forces of Anterolateral leads Confirmed by Adelfo Marsh ([id number]) on 02/12/2021 5:55:57 AM Referred By: REFERRED SELF Confirmed By:Adelfo Marsh
[2021-02-12] MEDS ORDERED: LIDOCAINE/PRILOCAINE 2.5% EA CRM EXT SCH (09:00)
[2021-02-12] MEDS ORDERED: SODIUM CHLORIDE 0.9% 1000ML 1,000 ML IV PRN (09:25)
[2021-02-12] MEDS ORDERED: EPOETIN ALFA 4,000 UNIT/ML VIAL IV ONE (09:25)
[2021-02-12] MEDS ORDERED: HEPARIN SOD (PORCINE) 1000 UNIT/ML IV ONE (09:25)
[2021-02-12] MEDS: ONDANSETRON INJ 2 MG/ML 2 ML VIAL IV PRN ×2 (09:58→16:47)
--- NOTE | 2021-02-12 16:46 | Hospitalist Progress Note ---
Date of Service February 12, 2021 Assessment & Plan (1) Acute hyperkalemia: Admitted with hyperkalemia potassium more than 6, with EKG change. Underwent emergent dialysis on admission. Patient aware of his poor prognosis, with worsening of cardiac function, non-ST elevated [place], has been on dialysis for past several years Had extremely poor quality of life, Appreciate input from palliative care Treatments transition to comfort care hospice only, does not want to continue dialysis (2) End stage renal disease: Has been on dialysis for last 5 yrs Currently on comfort care, no more dialysis or lab draw (3) Non-ST elevation (NSTEMI) myocardial infarction: Elevated troponin more than 20. Echo shows worsening of LV function reduced to 15%, Recent history of non-ST elevated [place] on August 2020, ejection fraction was 30%, was treated medically Cardiac angiogram/intervention was noted to be too high risk, at this point, Patient does not have any angina symptoms. Appreciate input from cardiology, Overall prognosis remains extremely poor, patient opted for comfort care hospice Continue palliative/comfort care, life expectancy very poor few days to a week. Admission and Anticipated Discharge Date Admission Date: February 09, 2021 Subjective Patient is transition to hospice/comfort care, Mostly tired, lethargic offers no complaints Physical Exam Physical Exam: Physical exam: Minimum exam for comfort care General: Chronically ill-appearing/frail person no apparent distress noted Neuro: No focal neurological deficit normal speech, generalized weakness Results & Data Results & Data ([facility]) Vital Signs (Past 12 Hours) Vital Signs Temp Pulse Resp BP 02/12/21 09:57 36.4 C L 88 18 112/74
[2021-02-12] MEDS: HEPARIN SOD (PORCINE) 1000 UNIT/ML IV SCH (17:43)
[2021-02-12] MEDS: HYDROmorphone INJ 0.5 MG/0.5 ML SYR IV PRN ×2 (20:10→22:37)
[2021-02-13] MEDS ORDERED: [UNRECOGNIZED DRUG - REMARK] SCH
[2021-02-13] MEDS: MoRPHine SULFATE 5 MG/0.25 ML UDP PO PRN ×2 (03:41→19:43)
[2021-02-13] MEDS: ONDANSETRON INJ 2 MG/ML 2 ML VIAL IV PRN (05:46)
[2021-02-13] MEDS: HYDROmorphone INJ 0.5 MG/0.5 ML SYR IV PRN ×3 (06:07→23:11)
--- NOTE | 2021-02-13 16:02 | Hospitalist Progress Note ---
Date of Service February 13, 2021 Assessment & Plan (1) Acute hyperkalemia: Admitted with hyperkalemia potassium more than 6, with EKG change. Underwent emergent dialysis on admission. Patient aware of his poor prognosis, with worsening of cardiac function, non-ST elevated [place], has been on dialysis for past several years Had extremely poor quality of life, Appreciate input from palliative care Currently on comfort care hospice, patient does not want anymore dialysis (2) End stage renal disease: Has been on dialysis for last 5 yrs Currently on comfort care, no more dialysis or lab draw (3) Non-ST elevation (NSTEMI) myocardial infarction: Elevated troponin more than 20. Echo shows worsening of LV function reduced to 15%, Recent history of non-ST elevated [place] on August 2020, ejection fraction was 30%, was treated medically Cardiac angiogram/intervention was noted to be too high risk, at this point, Patient does not have any angina symptoms. Appreciate input from cardiology, Overall prognosis remains extremely poor, patient opted for comfort care hospice Continue palliative/comfort care, life expectancy very poor few days to a week. Admission and Anticipated Discharge Date Admission Date: February 09, 2021 Subjective Patient is currently on hospice/comfort care. Awake, very confused, appears to be very anxious, thinks he is losing his mind, he thought trimming/went outside somewhere, And to find himself in hospital Appears to be very anxious and continues to repeat about having a dream and seeing something which is not there Patient definitely showing cognitive decline secondary to progressive uremia, On comfort care Asked nursing to utilize sublingual Ativan for comfort, for anxiety Physical Exam Physical Exam: Physical exam: Minimum exam for comfort care General: Chronically ill-appearing/frail person no apparent distress noted Neuro: No focal neurological deficit normal speech, generalized weakness Results & Data Results & Data ([facility]) Vital Signs (Past 12 Hours) Vital Signs Temp Pulse Resp BP Pulse Ox 02/13/21 15:10 36.4 C L 83 16 106/72 96
[2021-02-13] MEDS: LORazepam 0.5 MG/1 ML VIAL IV PRN (16:43)
[2021-02-13] MEDS ORDERED: LORazepam 0.5 MG TAB SL STA (17:39)
[2021-02-13] MEDS: LORazepam 0.5 MG TAB SL PRN (22:00)
[2021-02-14] MEDS: LORazepam 0.5 MG TAB SL PRN (05:43)
[2021-02-14] MEDS: HYDROmorphone INJ 0.5 MG/0.5 ML SYR IV PRN (08:15)
--- NOTE | 2021-02-14 11:50 | Death Pronouncement Note ---
Date of Service February 14, 2021 Pronouncement Note Admission Date Admission Date: February 09, 2021 Date and Time of Date of : 02/14/21 Time of : 10:16 Contributing Factors (1) Acute hyperkalemia: (2) End stage renal disease: (3) Non-ST elevation (NSTEMI) myocardial infarction: Additional Data Confirmation of : no pulse, no respirations, no heart sounds and pupils fixed and dilated Family: at bedside Attending/PCP notified?: Yes Attending physician: Anita Mcneill MD Was code activated?: No Autopsy requested?: No voucher examiner notified?: No Organ bank notified?: Yes Advance directives: Yes
--- NOTE | 2021-02-14 13:03 | Discharge Summary ---
Date of Service February 14, 2021 Admission HPI Per Admitting Provider DICTATED BY: Jeff Cisneros MD DATE OF ADMISSION: 02/09/2021 CHIEF COMPLAINT: Hyperkalemia, nausea and diarrhea. HISTORY OF PRESENT ILLNESS: This is an 85-year-old male with past medical history significant for end-stage renal disease on hemodialysis, history of type 2 diabetes, CAD, paroxysmal atrial fibrillation, on Coumadin, history of atrial flutter status post ablation, chronic heart failure with preserved ejection fraction, history of aortic bioprosthetic valve replacement, history of hypertension, recurrent C. diff, on chronic vancomycin therapy, GERD, polymyalgia rheumatica, history of PE, status post IVC filter, history of right CEA. In August he had a non-ST elevated myocardial infarction with significant elevation of troponins, but the patient declined cardiac catheterization and was treated conservatively. At that time, he was started on Toprol-XL, on atorvastatin and Plavix. The patient was here again in October of this year with melena. No endoscopy was done. The patient improved. At that time, Coumadin was held, but again restarted. Today, again he comes back because he missed dialysis this Sunday because last couple of days he was having nausea, diarrhea several episodes, and was feeling weak, that is why he came here and he was found to have potassium of 6.9 and EKG showed widening QRS complex. Calcium gluconate, dextrose, insulin, and sodium bicarbonate were given in the ER. Repeat EKG showed narrowing of the QRS complex and shortening of the QTc. Currently resting comfortable and hemodynamically stable. Denies any chest pain. Denies any shortness of breath. Once in a while, he has cough. Denies any headache, no blurred vision, no earache, no runny nose. Appetite is not that great. No dysphagia. Has nausea, but no vomiting. No abdominal pain. He rarely makes some urine. Ongoing diarrhea for last 2 days. Chronic swelling in the legs, ambulates with a walker. Lives with his and his labs showed troponin of 23, lactic acid of 3.1, procalcitonin 0.8. SARS-CoV-2 PCR negative. Currently resting comfortably and hemodynamically stable Principal Diagnosis Patient while on hospice/comfort care Non-ST elevated CT, severe ischemic cardiomyopathy. End-stage renal disease on dialysis, patient stopped dialysis secondary to be on comfort care Discharge Exam Patient . Discharge Data Allergies Allergy/AdvReac Type Severity Reaction Status Date / Time aspirin Allergy Unknown . Verified 02/09/21 19:29 salicylates Allergy Unknown UNKNOWN Verified 02/09/21 19:29 Consultations 02/10/21 08:00 Consult Cardiology Routine Consult Bolt Loader Routine Consult Nephrology Routine 02/10/21 09:33 Consult Palliative Care Routine Ordered Studies 02/10/21 04:34 US point of care ultrasound Routine Hospital Course (1) Acute hyperkalemia: Admitted with hyperkalemia potassium more than 6, with EKG change. Underwent emergent dialysis on admission. Patient aware of his poor prognosis, with worsening of cardiac function, non-ST elevated CT, has been on dialysis for past several years Had extremely poor quality of life, Appreciate input from palliative care Currently on comfort care hospice, patient does not want anymore dialysis Patient while on comfort care (2) End stage renal disease: Has been on dialysis for last 5 yrs Dialysis stopped per patient's wishes, goal of care transition to comfort care hospice Patient while on hospice care (3) Non-ST elevation (NSTEMI) myocardial infarction: Elevated troponin more than 20. Echo shows worsening of LV function reduced to 15%, Recent history of non-ST elevated CT on August 2020, ejection fraction was 30%, was treated medically Cardiac angiogram/intervention was noted to be too high risk, at this point, Patient does not have any angina symptoms. Appreciate input from cardiology, Overall prognosis remains extremely poor, patient opted for comfort care hospice Patient is DNR/DNI, while on hospice care family member was present at bedside Total Time Total Time Spent Total Time Spent (In Minutes): Patient Total Time Includes: Examination of the Patient Discharge Plan Discharge Items Patient Disposition: Discharge Diagnosis: Patient while on hospice/comfort care Non-ST elevated CT, severe ischemic cardiomyopathy. End-stage renal disease on dialysis, patient stopped dialysis secondary to be on comfort care
== END 2021-02-14 11:23 | disposition expired ==
LOC: ED 17:34 → 1E 23:01 → 3E 02-11 15:13